=== PATIENT | female | born 1995 | race Caucasian/White ===

== ENCOUNTER 2019-06-24 18:22 | Emergency (ER) | payer MEDICARE, MEDICAID, SELFPAY ==
[2019-06-24 18:24] VITALS: RESP 18; BMI 23.3
--- NOTE | 2019-06-24 18:27 | ED_ITS ---
Entered by Yulia Hinkle, acting as scribe for HPI - Female Genitourinary General: Chief complaint: Urogenital-Female Stated complaint: NOT URINATING Time Seen by Provider: 06/24/19 18:27 Source: EMS Mode of arrival: EMS Limitations: no limitations History of Present Illness: HPI Narrative: Jennyfer is a 24-year-old female with severe cerebral palsy who comes in with report of decreased urine output. Her grandmother who is her flat spring assembler is coming to the hospital but not presently with her. EMS states the patient is in her normal mental state but the grandmother was concerned about a UTI. The patient is nonverbal and unable to give any history. All review of systems and past medical history is taken from EMS by report of the grandmother. Onset (ago): day(s) (yesterday) Severity: mild Exacerbating factors: none Relieving factors: none Associated symptoms: Reports no associated symptoms Treatment prior to arrival: none Review of Systems General: Reports: ROS unobtainable due to medical condition and other (negative unless marked) Eyes: Reports: eye discharge GI: Denies: vomiting PFSH ED PFSH: Statuses (acute, chronic, etc) shown below reflect problem list status as previously entered and may not be historically accurate Social History Smoking and tobacco status: unknown if ever smoked Physical Exam Const: COMMON NORMALS: no apparent distress, no limitations, healthy appearing and well nourished EXAM LIMITATIONS: no altered mental status GENERAL APPEARANCE: cooperative and well developed ORIENTATION/CONSCIOUSNESS: Yes awake HENMT: COMMON NORMALS: normocephalic, head/scalp atraumatic, hearing grossly normal bilaterally, external ears normal, EAC's normal, external nose normal and moist oral mucous membranes HEAD & SCALP: normal to inspection, normocephalic and atraumatic FACE & SINUS: normal facial exam and face symmetric NOSE: external nose normal and nares normal EXTERNAL EAR: Yes external ears normal EXTERNAL AUDITORY CANAL: EAC's normal MOUTH: oral and palatal mucosa normal and tongue normal Eye: COMMON NORMALS: PERRL, EOMs intact bilaterally and no scleral icterus GENERAL EYE: normal appearance of both eyes and normal light reflex CONJUNCTIVA: Yes conjunctiva abnormal (Mild greenish discharge bilaterally) SCLERA: sclerae normal CORNEA: Yes corneas normal PUPIL: Yes PERRL DIRECT OPHTHALMOSCOPY: Yes normal light reflex Neck/C-Spine: COMMON NORMALS: full ROM, no lymphadenopathy, supple, no meningeal signs and no JVD GENERAL: Yes normal visual inspection and Yes trachea midline CERVICAL SPINE: Yes cervical ROM normal Chest: COMMONS NORMALS: inspection of chest normal and palpation of chest normal Resp: COMMON NORMALS: normal respiratory effort, no retractions, no use of accessory muscles and clear to auscultation bilaterally EFFORT & INSPECTION: Yes able to speak in complete sentences AUSCULTATION: clear to auscultation bilaterally Cardio: COMMON NORMALS: no JVD, regular rate, regular rhythm, S1 normal heart sound, S2 normal heart sound, no gallops, no clicks, no murmurs and no rub JUGULAR VENOUS DISTENTION: no JVD RATE: regular rate RHYTHM: regular rhythm HEART SOUNDS: S1 normal and S2 normal GI: COMMON NORMALS: soft to palpation, non-tender, no hepatosplenomegaly and no masses INSPECTION: Yes normal to inspection PALPATION: Yes soft and Yes no hepatosplenomegaly : COMMON NORMALS: Yes no CVA tenderness BLADDER/KIDNEY EXAM: Yes no CVA tenderness Back/Pelvis: COMMON NORMALS: no CVA tenderness, thoracic and lumbar spine normal to inspection, no thoracic nor lumbar tenderness and thoraco-lumbar ROM normal Extremity: COMMON NORMALS: normal capillary refill NARRATIVE EXTREMITY EXAM: Spastic contractures present from cerebral palsy Neuro: COMMON NORMALS: moves all extremities, no focal motor deficits (Different from baseline) and no sensory deficits noted MENINGEAL SIGNS: Yes no meningeal signs and No nuccal rigidity Skin: COMMON NORMALS: no rashes or lesions noted, skin turgor normal, no jaundice, no petechiae and no mottling GENERAL SKIN EXAM: no rashes or lesions noted and turgor normal Course Vital Signs: Vital signs: Vital Signs Temperature 99.1 F 06/24/19 18:30 Pulse Rate 84 06/24/19 23:10 Respiratory Rate 17 06/24/19 21:52 Blood Pressure 100/73 06/24/19 23:10 Pulse Oximetry 98 06/24/19 23:10 MDM - Female MDM Narrative: Medical decision making narrative: Jennyfer is a 24-year-old female who was brought in at the request of her grandmother and her power of sports attorney/flat spring assembler with the concern of decreased urine output. Upon arrival here the patient had a large amount of urine found in her diaper. We did check her for UTI and check baseline labs per her grandmother's request but no acute abnormality is found. She did express concern about drainage from both eyes which sounds to be more chronic but she has requested we put her on a antibiotic for this and I will prescribe erythromycin ophthalmic ointment. At this time I see no bedsores or anything else that could be causing a sepsis type syndrome in the patient. Her grandmother is satisfied with this and will go home but does agree that if she changes her symptoms or become sick at all she will return to the ER immediately for recheck. The grandmother agrees that patient is back to her baseline and interacting at this time. She does seem somewhat interactive better than she has since arrival. Lab Data: Attestation: I reviewed the patient's lab results. Labs: Lab Results 06/24/19 06/24/19 06/24/19 Range/Units 19:03 19:03 19:03 WBC 5.8 (4.0-10.0) 10^3/ uL RBC 4.34 (4.1-5.3) 10^6/u L Hgb 13.3 (11.5-15.3) g/dL Hct 41.1 (37.0-47.0) % MCV 94.7 (81-99) fL MCH 30.6 (28.0-34.0) pg MCHC 32.4 (30.0-36.0) g/dL RDW 11.9 L (12.1-15.1) % Plt Count 232 (130-400) 10^3/c mm MPV 11.1 H (7.4-10.4) fL Neut % (Auto) 39.3 % Lymph % (Auto) 50.7 % [place] % (Auto) 8.4 % Eos % (Auto) 0.7 % Baso % (Auto) 0.7 % Neut # (Auto) 2.3 (1.8-7.7) 10^3/u L Lymph # (Auto) 2.9 (0.8-4.8) 10^3/u L [place] # (Auto) 0.5 (0.2-0.9) 10^3/u L Eos # (Auto) 0.0 (0.0-0.8) 10^3/u L Baso # (Auto) 0.0 (0.0-0.1) 10^3/u L Nucleated RBC % (a uto) 0 % Nucleated RBCs # 0.0 /100WBC Specimen Type Sample Site ABG pH (7.35-7.45) ABG pCO2 (35-45) mmHg ABG pO2 (80.0-100.0) mmH g ABG HCO3 (22-26) mmol/L ABG Base Excess (-2.0-2.0) mmol/ L Suresh Test Hematocrit (37-47) % Supervisor [employer]ating ID Sodium 139 (136-145) mmol/L Potassium 4.2 (3.5-5.1) mmol/L Chloride 99 (98-107) mmol/L Carbon Dioxide 30 H (22-29) mmol/L Anion Gap 14.2 (5-19) BUN 10 (6-20) mg/dL Creatinine 0.6 (0.5-0.9) mg/dL GFR Calculation 122.8 (90-130) mL/min Glucose 97 (74-109) mg/dL Lactic Acid 1.2 (0.5-2.2) mmol/L Calcium 10.3 H (8.6-10.0) mg/Dl Total Bilirubin 0.2 (0.15-1.2) mg/dL AST 27 (0-32) U/L ALT 13 (0-33) U/L Alkaline Phosphata se 135 H (35-105) IU/L Total Protein 8.1 (6.6-8.7) g/dL Albumin 4.3 (3.5-5.2) g/dL Globulin 3.8 (1.3-4.6) g/dL Urine Color (Yellow) Urine Appearance (CLEAR) Urine pH (5-7) Ur Specific Gravit y (1.005-1.030) Urine Protein (Negative) Urine Glucose (UA) (Normal) Urine Ketones (Negative) Urine Occult Blood (Negative) Urine Nitrate (Negative) Urine Bilirubin (NEGATIVE) Urine Urobilinogen (Negative) mg/dL Ur Leukocyte Rafaela ase (Negative) Urine RBC (0-2) /hpf Urine WBC (0-5) /hpf Ur Squamous Epith Cells (0-5) Urine Bacteria (NONE) Influenza Type A A g (Negative) POC Influenza B Ag (Negative) 06/24/19 06/24/19 06/24/19 Range/Units 19:10 19:53 20:34 WBC (4.0-10.0) 10^3/ uL RBC (4.1-5.3) 10^6/u L Hgb (11.5-15.3) g/dL Hct (37.0-47.0) % MCV (81-99) fL MCH (28.0-34.0) pg MCHC (30.0-36.0) g/dL RDW (12.1-15.1) % Plt Count (130-400) 10^3/c mm MPV (7.4-10.4) fL Neut % (Auto) % Lymph % (Auto) % [place] % (Auto) % Eos % (Auto) % Baso % (Auto) % Neut # (Auto) (1.8-7.7) 10^3/u L Lymph # (Auto) (0.8-4.8) 10^3/u L [place] # (Auto) (0.2-0.9) 10^3/u L Eos # (Auto) (0.0-0.8) 10^3/u L Baso # (Auto) (0.0-0.1) 10^3/u L Nucleated RBC % (a uto) % Nucleated RBCs # /100WBC Specimen Type Arterial Sample Site Radial, right ABG pH 7.44 (7.35-7.45) ABG pCO2 42.6 (35-45) mmHg ABG pO2 81.9 (80.0-100.0) mmH g ABG HCO3 28.8 H (22-26) mmol/L ABG Base Excess 4.1 H (-2.0-2.0) mmol/ L Suresh Test Pos Hematocrit 40.1 (37-47) % Supervisor [employer] ID ellpe Sodium (136-145) mmol/L Potassium (3.5-5.1) mmol/L Chloride (98-107) mmol/L Carbon Dioxide (22-29) mmol/L Anion Gap (5-19) BUN (6-20) mg/dL Creatinine (0.5-0.9) mg/dL GFR Calculation (90-130) mL/min Glucose (74-109) mg/dL Lactic Acid (0.5-2.2) mmol/L Calcium (8.6-10.0) mg/Dl Total Bilirubin (0.15-1.2) mg/dL AST (0-32) U/L ALT (0-33) U/L Alkaline Phosphata se (35-105) IU/L Total Protein (6.6-8.7) g/dL Albumin (3.5-5.2) g/dL Globulin (1.3-4.6) g/dL Urine Color Straw (Yellow) Urine Appearance Clear (CLEAR) Urine pH 7 (5-7) Ur Specific Gravit y 1.010 (1.005-1.030) Urine Protein Neg (Negative) Urine Glucose (UA) Norm (Normal) Urine Ketones Negative (Negative) Urine Occult Blood Neg (Negative) Urine Nitrate Negative (Negative) Urine Bilirubin Neg (NEGATIVE) Urine Urobilinogen Norm (Negative) mg/dL Ur Leukocyte Rafaela ase Negative (Negative) Urine RBC 0-4 H (0-2) /hpf Urine WBC 0-4 H (0-5) /hpf Ur Squamous Epith Cells 0-4 H (0-5) Urine Bacteria 1+ H (NONE) Influenza Type A A g Negative (Negative) POC Influenza B Ag Negative (Negative) Discharge Plan Discharge Patient Disposition: Home, Self-Care Clinical Impression: Conjunctivitis Qualifiers: Conjunctivitis type: acute Acute conjunctivitis type: bacterial Laterality: bilateral Qualified Code(s): H10.33 - Unspecified acute conjunctivitis, bilateral Condition: Stable Prescriptions: New erythromycin 5 mg/gram (0.5 %) ointment 1 applic ophthalmic (eye) Q8H Qty: 3.5 RF: 0 Discharge Orders: Discharge Order (Routine); Ordered 06/24/19 Ordered By: Shameka Mendoza Referrals: Mynor Hedrick MD [Family Provider] - 1-3 days Discharge Diet: Usual diet Discharge Activity: Resume usual activity Patient Instructions: Conjunctivitis (ED) Activity Restrictions/Additional Instructions: Please return to the ER immediately for any of the signs or symptoms listed on your discharge instruction sheets, worsening/changing of your symptoms, you are not getting better as quickly as expected, or for ANY other cause or concerns. No significant abnormalities of your granddaughters health have been found today other than her conjunctivitis. If her symptoms worsen or change in any way please return to the ER immediately for recheck and further evaluation and care. Discharge Date/Time: 06/24/19 23:11 Coding Level of Care Code ED Material Man for Chg Fwd Exam Problem Focused The documentation recorded by the Manan xie Bridget Annette, accurately reflects the service I personally performed and the decisions made by , Shameka Mendoza Jun 24, 2019 18:22
--- NOTE | 2019-06-24 18:29 | ECG_ITS ---
Measurements Intervals [place] Rate: 70 P: 33 ME: 131 QRS: 136 QRSD: 89 T: -6 QT: 387 QTc: 419 SINUS RHYTHM WITH SINUS ARRHYTHMIA LATERAL MYOCARDIAL INFARCTION , PROBABLY OLD [40+ ms Q WAVE AND/OR ST/T ABNORMALITY IN I/aVL/V5/V6] Compared to ECG 08/19/2015 06:16:51 Myocardial infarct finding now present Sinus tachycardia no longer present Left ventricular hypertrophy no longer present T-wave abnormality no longer present Electronically Signed On 06-25-2019 17:20:24 AMBULATORY CARE NURSE by Leobardo Delgadillo M.D. [email or web address]
--- NOTE | 2019-06-24 18:29 | XR_ITS ---
WS: [id number] PORTABLE CHEST HISTORY: cough COMPARISON: 12/04/2015 Vagal nerve stimulator projects over the LEFT thorax. Wires and electrodes extend superiorly. Lungs are clear and well expanded. No pleural effusion or pneumothorax. Cardiac size: Normal. Mediastinum/Aorta: Mild distortion of the mediastinum due to moderate thoracolumbar scoliosis. Moderate S-shaped scoliosis of the thoracolumbar spine with extensive Reardon carmelo placement. Harri ngton rods extends from the upper thoracic spine into the lumbar region. Distal extent of the rods no t visualized. XR/XR chest 1V portable [id number] IMPRESSION: No acute cardiopulmonary disease.
[2019-06-24 18:30] VITALS: PULSE 100; RESP 14; TEMP 37.3; O2SAT 98
--- NOTE | 2019-06-24 19:15 | PC.NURSE ---
Patient had medium, soft BM at this time. BM cleaned and felix-care performed. Per physician sood attempted to be placed at this time r/t retention, during placement attempt patient urinated a large amount of urine. THis was immeasurable due to incontinence onto chucks pads. Two chucks pads were saturated with medium dark yellow urine that appeared clear and was without foul odor. Sood did not have any urine return, some scant about of bright red blood noted on sood tip, sood removed and provider notified. Linens changed and felix care performed; pt tolerated fairly.
[2019-06-24 19:20] LABS: ABG PCO2 42.6 mmHg (35-45); ABG PH Result 7.44 (7.35-7.45); Arterial Blood Gas Hematocrit 40.1 % (37-47); Base Excess ABG 4.1 mmol/L (-2.0-2.0); Blood Gas Allen Test Pos; Blood Gas Sample Site Radial, right; Blood Gas Sample Type Arterial; HCO3 ABG 28.8 mmol/L (22-26); PO2 ABG 81.9 mmHg (80.0-100.0)
[2019-06-24 19:26] LABS: Basophils % 0.7 %; Eosinophils % 0.7 %; Hematocrit 41.1 % (37.0-47.0); Hemoglobin 13.3 g/dL (11.5-15.3); Lymphocytes # 2.9 10^3/uL (0.8-4.8); Lymphocytes % 50.7 %; Mean Corpuscular HGB Conc 32.4 g/dL (30.0-36.0); Mean Corpuscular Hemoglobin 30.6 pg (28.0-34.0); Mean Corpuscular Volume 94.7 fL (81-99); Mean Platelet Volume 11.1 fL (7.4-10.4); Monocytes # 0.5 10^3/uL (0.2-0.9); Monocytes % 8.4 %; Neutrophils # 2.3 10^3/uL (1.8-7.7); Neutrophils % 39.3 %; Nucleated Red Blood Cells % 0 %; Platelet Count 232 10^3/cmm (130-400); Red Blood Count 4.34 10^6/uL (4.1-5.3); Red Cell Distribution Width 11.9 % (12.1-15.1); White Blood Count 5.8 10^3/uL (4.0-10.0)
[2019-06-24 19:31] LABS: Lactic Sepsis W/Reflex 1.2 mmol/L (0.5-2.2)
[2019-06-24] MEDS: sodium chloride 0.9% 1,000 ML 100 ML IV (19:48)
[2019-06-24 19:56] LABS: Alanine Aminotransferase 13 U/L (0-33); Albumin Level 4.3 g/dL (3.5-5.2); Alkaline Phosphatase 135 IU/L (35-105); Anion Gap 14.2 (5-19); Aspartate Amino Transferase 27 U/L (0-32); Blood Urea Nitrogen 10 mg/dL (6-20); Calcium 10.3 mg/Dl (8.6-10.0); Carbon Dioxide 30 mmol/L (22-29); Chloride 99 mmol/L (98-107); Globulin 3.8 g/dL (1.3-4.6); Glomerular Filtration Rate 122.8 mL/min (90-130); Glucose 97 mg/dL (74-109); Potassium 4.2 mmol/L (3.5-5.1); Sodium 139 mmol/L (136-145); Total Bilirubin 0.2 mg/dL (0.15-1.2); Total Protein 8.1 g/dL (6.6-8.7)
[2019-06-24 20:32] LABS: Influenza A by IFA Negative (Negative); Influenza B by IFA Negative (Negative)
[2019-06-24 21:23] LABS: Bacteria Urine 1+; Bilirubin Urine Neg (NEGATIVE); Blood Urine Neg (Negative); Glucose Urine UA Norm (Normal); Ketones Urine Negative (Negative); Leukocyte Esterase Urine Negative (Negative); Nitrate Urine Negative (Negative); Protein Urine Neg (Negative); RBC Urine 0-4 /hpf (0-2); Squamous Epithelial Cell Urine 0-4 (0-5); Urine Appearance Clear (CLEAR); Urine Color Straw (Yellow); Urobilinogen Urine Norm (Negative); WBC Urine 0-4 /hpf (0-5); pH Urine 7 (5-7)
[2019-06-24 21:52] VITALS: PULSE 88; RESP 17; O2SAT 96
[2019-06-24 23:10] VITALS: BP 100/73; PULSE 84; O2SAT 98
== END 2019-06-24 23:11 | disposition home or self-care (01) ==
PROVIDERS: Emergency Provider Emergency Medicine; Family Provider Family Medicine
DX: H10.33 Unspecified acute conjunctivitis, bilateral (principal)
CPT/HCPCS: 36600; 71045; 80053; 81001; 82803; 83605; 85025; 87077; 87086; 87186; 87804; 93005; 96360; 99283; J7030

== ENCOUNTER 2019-12-28 19:35 | Emergency (ER) | payer MEDICARE, MEDICAID, SELFPAY ==
[2019-12-28 19:36] VITALS: BP 104/51; PULSE 72; RESP 16; TEMP 36.7; O2SAT 88; BMI 22.1
--- NOTE | 2019-12-28 19:51 | W.ED.GENADLT ---
HPI - General Adult General: Chief complaint: General Medical Stated complaint: PEG tube dislodgement Time Seen by Provider: 12/28/19 19:41 History of Present Illness: HPI narrative: Patient is a 24 year old female with history of severe CP. She is cared for at home by family. Today her PEG tube came out - family was able to replace it with an old one and it is functioning normally. They are concerned about the cleanliness of the old tube and so brought her in by ambulance. They have no other concerns. The patient is non verbal. Review of Systems General: Reports: ROS unobtainable due to medical condition PFS ED PFSH: Social History Smoking and tobacco status: unknown if ever smoked Physical Exam Const: COMMON NORMALS: alert GENERAL APPEARANCE: anxious OTHER: non-verbal HENMT: HEAD & SCALP: normal to inspection FACE & SINUS: normal facial exam Eye: GENERAL EYE: appearance normal, both eyes and all related structures Neck/C-Spine: COMMON NORMALS: supple, no meningeal signs and no JVD Chest: COMMONS NORMALS: normal inspection of the chest Resp: COMMON NORMALS: normal respiratory effort, No use of accessory muscles and clear to auscultation bilaterally AUSCULTATION: clear to auscultation bilaterally Cardio: COMMON NORMALS: no JVD, regular rate, regular rhythm and No murmurs present (Cardio) RATE: regular rate RHYTHM: regular rhythm GI: COMMON NORMALS: Normal to inspection, nondistended, normoactive bowel sounds present, Soft to palpation and non-tender INSPECTION: Yes normal to inspection, Yes GI tube present (no erythema, no drainage, functional) and Yes other AUSCULTATION: Yes normoactive bowel sounds PALPATION: Yes Soft to palpation Back/Pelvis: COMMON NORMALS: thoracic and lumbar spine normal to inspection Extremity: COMMON NORMALS: normal to inspection Neuro: SENSORIUM/ORIENTATION: Yes alert and Yes other (contractures) MENINGEAL SIGNS: Yes no meningeal signs Psych: COMMON NORMALS: mental status grossly normal, cooperative and normal affect Skin: COMMON NORMALS: no rashes or lesions noted and turgor normal GENERAL SKIN EXAM: no rashes or lesions noted and turgor normal Course ED course: The patient's grandmother had put a tube back in which appears to be functioning normally. This was good because we did not have the same type of tube here in the department or in the hospital. As it is functioning and we will let her go back home and they will follow-up with her doctor on Tuesday to get a new tube. Vital Signs: Vital signs: Vital Signs Temperature 98.1 F 12/28/19 19:36 Pulse Rate 76 12/28/19 21:08 Respiratory Rate 16 12/28/19 21:08 Blood Pressure 84/61 12/28/19 21:08 Pulse Oximetry 95 12/28/19 21:08 Discharge Plan Discharge Patient Disposition: Home Clinical Impression: Gastrostomy tube dysfunction Condition: Stable Prescriptions: No Action erythromycin 5 mg/gram (0.5 %) ointment 1 applic ophthalmic (eye) Q8H Qty: 3.5 RF: 0 Discharge Orders: Discharge Order (Routine); Ordered 12/28/19 Ordered By: Juliana Shay Referrals: Mynor Hedrick MD [Referring] - Discharge Diet: Usual diet Discharge Activity: Resume usual activity Patient Instructions: GI Tube Care Activity Restrictions/Additional Instructions: Continue to use the G-tube that you put in today as normal. Contact your physician on Tuesday to see about getting a new tube to put in. Return to the ED if fevers or abdominal pain or if the tube is not working. Discharge Date/Time: 12/28/19 21:00 Coding Level of Care Code ED [employer] Supervisor for Lobito Paula Exam Comprehensive
[2019-12-28 19:55] VITALS: BP 87/63; PULSE 79; RESP 14; O2SAT 97
[2019-12-28 21:08] VITALS: BP 84/61; PULSE 76; RESP 16; O2SAT 95
== END 2019-12-28 21:00 | disposition home or self-care (01) ==
PROVIDERS: Emergency Provider Emergency Medicine; PCP Nurse Practitioner Family
DX: K94.29 Other complications of gastrostomy (principal)
CPT/HCPCS: 12345; 99281

== ENCOUNTER 2020-01-02 09:54 | Emergency (ER) | payer MEDICARE, MEDICAID, SELFPAY ==
[2020-01-02 10:04] VITALS: BP 98/73; PULSE 78; RESP 18; TEMP 36.4; O2SAT 98
--- NOTE | 2020-01-02 10:19 | W.ED.WEAKNES ---
HPI - Weakness General: Chief complaint: Weakness Stated complaint: LETHARGIC Time Seen by Provider: 01/02/20 10:14 History of Present Illness: HPI Narrative: Patient arrived via ambulance history from grandmother is patient was more sleepy today. She is doing fine now grandmother said she looks like she doing fine she was post have an appointment at 2:00 today to get a port put in they canceled that appointment. Patient is has a history of severe CP profound. Does have a G-tube in. Onset (ago): minute(s) Duration: improved Associated symptoms: Denies chest pain, chills, easy bruising, fever(s), headache(s), nausea or vomiting Review of Systems Narrative: History is obtained from the grandmother who states that patient is feeling better now she had been increased sleepiness today but is acting appropriate now denies any problems physically with her besides what her normal pattern is. Const: Denies: fever(s), chills or body aches Eyes: Denies: change in vision or blurry vision ENMT: Denies: throat pain or nasal congestion Card: Denies: chest pain or dyspnea on exertion Resp: Denies: dyspnea, productive cough or non-productive cough GI: Denies: abdominal pain, nausea or vomiting Musc: Denies: extremity pain Skin/Breast: Denies: rash Neuro: Denies: headache(s) Psych: Denies: anxiety or depression Brendan/Lymph: Denies: easy bruising PFS ED PFSH: Social History Smoking and tobacco status: unknown if ever smoked Physical Exam Narrative: EXAM NARRATIVE: Patient is noncommunicative. But she does have a small her face skin appears normal abdomen appears normal tubes in place not leaking. Skin is not red patient does not appear to have any skin breakdown she is wearing a depends. Cardio: COMMON NORMALS: regular rate RATE: regular rate Skin: COMMON NORMALS: no rashes or lesions noted GENERAL SKIN EXAM: no rashes or lesions noted Course Vital Signs: Vital signs: Vital Signs Temperature 97.5 F L 01/02/20 10:04 Pulse Rate 78 01/02/20 10:04 Respiratory Rate 18 01/02/20 10:04 Blood Pressure 98/73 01/02/20 10:04 Pulse Oximetry 98 01/02/20 10:04 Discharge Plan Discharge Prescriptions: No Action erythromycin 5 mg/gram (0.5 %) ointment 1 applic ophthalmic (eye) Q8H Qty: 3.5 RF: 0 Coding Level of Care Code ED [employer] Profiler for Lobito Paula
[2020-01-02 10:26] VITALS: BP 98/73; PULSE 78; RESP 18; TEMP 36.4; O2SAT 98
== END 2020-01-02 10:27 | disposition home or self-care (01) ==
PROVIDERS: Emergency Provider Nurse Practitioner Family; PCP Nurse Practitioner Family
DX: R53.1 Weakness (principal)
CPT/HCPCS: 12345; 99281

== ENCOUNTER 2020-01-20 23:16 | Emergency (ER) | payer MEDICARE, MEDICAID, SELFPAY ==
[2020-01-20 23:19] VITALS: RESP 14; BMI 19.0
[2020-01-20 23:28] VITALS: BP 101/71; PULSE 94; RESP 18; O2SAT 95
[2020-01-21] VITALS: BP 107/61; PULSE 74; RESP 14; O2SAT 94
--- NOTE | 2020-01-21 00:16 | XR_ITS ---
WS: [id number] PORTABLE CHEST HISTORY: sob COMPARISON: 06/24/2019 Thorax is deformed by extensive scoliosis. Reardon rods are present along with the vagal nerve sti mulator. Generator obscures a small portion of the mid LEFT lung. No pneumonia. No pleural effusion o r pneumothorax. Cardiac size: Normal. Mediastinum/Aorta: Prominent mediastinum on the basis of rotation and scoliosis. There is a large amount of air distending the stomach and GI tract in the upper abdomen. XR/XR chest 1V portable [id number] IMPRESSION: Limited by scoliosis and Reardon rods. No abnormality identified.
[2020-01-21 00:32] LABS: Basophils # 0.1 10^3/uL (0.0-0.1); Basophils % 0.8 %; Eosinophils # 0.2 10^3/uL (0.0-0.8); Eosinophils % 1.8 %; Hematocrit 39.5 % (37.0-47.0); Hemoglobin 12.7 g/dL (11.5-15.3); Lymphocytes # 4.5 10^3/uL (0.8-4.8); Lymphocytes % 52.8 %; Mean Corpuscular HGB Conc 32.2 g/dL (30.0-36.0); Mean Corpuscular Hemoglobin 30.1 pg (28.0-34.0); Mean Corpuscular Volume 93.6 fL (81-99); Mean Platelet Volume 11.7 fL (7.4-10.4); Monocytes # 0.6 10^3/uL (0.2-0.9); Monocytes % 7.5 %; Neutrophils # 3.16 10^3/uL (1.8-7.7); Neutrophils % 36.9 %; Nucleated Red Blood Cells % 0 %; Platelet Count 257 10^3/cmm (130-400); Red Blood Count 4.22 10^6/uL (4.1-5.3); Red Cell Distribution Width 12.7 % (12.1-15.1); White Blood Count 8.6 10^3/uL (4.0-10.0)
[2020-01-21 00:42] LABS: Alanine Aminotransferase 17 U/L (0-33); Albumin Level 4.6 g/dL (3.5-5.2); Alkaline Phosphatase 130 IU/L (35-105); Aspartate Amino Transferase 33 U/L (0-32); Blood Urea Nitrogen 11 mg/dL (6-20); Calcium 9.2 mg/dL (8.5-10.5); Carbon Dioxide 27 mmol/L (22-29); Chloride 99 mmol/L (98-107); Creatine Phosphokinase 63 U/L (26-192); Globulin 2.8 g/dL (1.3-4.6); Glomerular Filtration Rate 151.6 mL/min (90-130); Glucose 106 mg/dL (65-115); Osmolality Calculated 282 mOsm/kg (285-295); Sodium 138 mmol/L (136-145); Total Bilirubin 0.2 mg/dL (0.15-1.2); Total Protein 7.4 g/dL (6.6-8.7)
[2020-01-21 01:00] VITALS: BP 110/75; PULSE 79; RESP 16; O2SAT 99
[2020-01-21 01:19] LABS: Add Urine Microscopic? NO
[2020-01-21 01:22] LABS: Urine Appearance Clear (CLEAR); Urine Color Yellow (Yellow); pH Urine 7 (5-7)
[2020-01-21 01:23] LABS: Bilirubin Urine Neg (NEGATIVE); Blood Urine Neg (Negative); Glucose Urine UA Norm (Normal); Ketones Urine Negative (Negative); Leukocyte Esterase Urine Negative (Negative); Nitrate Urine Negative (Negative); Protein Urine Neg (Negative); Specific Gravity, Urine 1.005 (1.005-1.030); Urobilinogen Urine Norm (Negative)
--- NOTE | 2020-01-21 01:25 | W.ED.AMS ---
HPI - Altered Mental Status General: Chief Complaint: Altered Mental Status Stated Complaint: ams Time Seen by Provider: 01/20/20 23:38 History of Present Illness: HPI narrative: 24-year-old female with a history of profound CP and developmental delay. She presents with a period of what appeared to her grandmother to be shortness of breath. She noted that she was gasping for air. Jennyfer is mostly nonverbal, and cannot communicate by words. She appeared to be in somewhat distress, followed by a period of lethargy for her. Grandmother notes she appears to be back to near her baseline. MD complaint: altered mental status and decreased responsiveness Onset (ago): minute(s) Timing confirmed by: family member Severity: moderate Associated symptoms: Reports other Review of Systems General: Reports: ROS unobtainable due to medical condition Const: Denies: fever(s) ENMT: Denies: nasal congestion or epistaxis Card: Denies: edema or syncope Resp: Reports: dyspnea; Denies: productive cough, non-productive cough or wheezing GI: Denies: vomiting or diarrhea PFS ED PFSH: Social History Smoking and tobacco status: unknown if ever smoked Physical Exam Const: COMMON NORMALS: no acute distress EXAM LIMITATIONS: behavioral limitations and physical limitations GENERAL APPEARANCE: well kempt NUTRITIONAL APPEARANCE: thin ORIENTATION/CONSCIOUSNESS: Yes awake Eye: COMMON NORMALS: Equal, round and reactive pupils present CONJUNCTIVA: Yes conjunctival abnormal positive left conjunctival injection PUPIL: Yes Equal, round and reactive pupils present Chest: CHEST: Yes Symmetrical chest wall rise Resp: COMMON NORMALS: normal respiratory effort, No retractions, No use of accessory muscles and clear to auscultation bilaterally AUSCULTATION: clear to auscultation bilaterally Cardio: COMMON NORMALS: regular rate and regular rhythm RATE: regular rate RHYTHM: regular rhythm HEART SOUNDS: no murmurs GI: INSPECTION: Yes abdominal distension (mild) and Yes GI tube present AUSCULTATION: Yes normoactive bowel sounds PALPATION: No Guarding due to palpation present (GI) and No Rigid due to palpation Psych: APPEARANCE: Yes well kempt Course Vital Signs: Vital signs: Vital Signs Pulse Rate 79 01/21/20 01:00 Respiratory Rate 16 01/21/20 01:00 Blood Pressure 110/75 01/21/20 01:00 Pulse Oximetry 99 01/21/20 01:00 MDM - Altered Mental Status MDM Narrative: Medical decision making narrative: Jennyfer presents after a period of gasping for air, and then some decreased mental status. She appears to be back to baseline. She has some conjunctival injection on the left that continues. There is no matting. She is calm and not agitated. Her blood pressures have been mildly soft, which I believe is normal for her. Currently 90/67, with a pulse of 76, saturations 100% on room air. Her laboratory is benign. Her urinalysis is negative. Her chest x-ray does not appear to show an infiltrate. There is some chronic colonic distention present. Since she is appearing to be back at her baseline, she will be allowed home. Lab Data: Labs: Lab Results 01/20/20 01/20/20 01/21/20 Range/Units 23:58 23:58 00:54 WBC 8.6 (4.0-10.0) 10^3/ uL RBC 4.22 (4.1-5.3) 10^6/u L Hgb 12.7 (11.5-15.3) g/dL Hct 39.5 (37.0-47.0) % MCV 93.6 (81-99) fL MCH 30.1 (28.0-34.0) pg MCHC 32.2 (30.0-36.0) g/dL RDW 12.7 (12.1-15.1) % Plt Count 257 (130-400) 10^3/c mm MPV 11.7 H (7.4-10.4) fL Neut % (Auto) 36.9 % Lymph % (Auto) 52.8 % [place] % (Auto) 7.5 % Eos % (Auto) 1.8 % Baso % (Auto) 0.8 % Neut # (Auto) 3.16 (1.8-7.7) 10^3/u L Lymph # (Auto) 4.5 (0.8-4.8) 10^3/u L [place] # (Auto) 0.6 (0.2-0.9) 10^3/u L Eos # (Auto) 0.2 (0.0-0.8) 10^3/u L Baso # (Auto) 0.1 (0.0-0.1) 10^3/u L Nucleated RBC % (a uto) 0 % Nucleated RBCs # 0.0 /100WBC Sodium 138 (136-145) mmol/L Potassium 4.0 (3.5-5.1) mmol/L Chloride 99 (98-107) mmol/L Carbon Dioxide 27 (22-29) mmol/L Anion Gap 16.0 (5-19) BUN 11 (6-20) mg/dL Creatinine 0.5 (0.5-0.9) mg/dL GFR Calculation 151.6 H (90-130) mL/min Glucose 106 (65-115) mg/dL Calculated Osmolal ity 282 L (285-295) mOsm/k g Calcium 9.2 (8.5-10.5) mg/dL Total Bilirubin 0.2 (0.15-1.2) mg/dL AST 33 H (0-32) U/L ALT 17 (0-33) U/L Alkaline Phosphata se 130 H (35-105) IU/L Creatine Kinase 63 (26-192) U/L Total Protein 7.4 (6.6-8.7) g/dL Albumin 4.6 (3.5-5.2) g/dL Globulin 2.8 (1.3-4.6) g/dL Urine Color Yellow (Yellow) Urine Appearance Clear (CLEAR) Urine pH 7 (5-7) Ur Specific Gravit y 1.005 (1.005-1.030) Urine Protein Neg (Negative) Urine Glucose (UA) Norm (Normal) Urine Ketones Negative (Negative) Urine Blood Neg (Negative) Urine Nitrate Negative (Negative) Urine Bilirubin Neg (NEGATIVE) Urine Urobilinogen Norm (Negative) mg/dL Ur Leukocyte Rafaela ase Negative (Negative) Discharge Plan Discharge Patient Disposition: Home Clinical Impression: Acute dyspnea, Alteration consciousness Condition: Stable Prescriptions: No Action erythromycin 5 mg/gram (0.5 %) ointment 1 applic ophthalmic (eye) Q8H Qty: 3.5 RF: 0 Discharge Orders: Discharge Order (Routine); Ordered 01/21/20 Ordered By: Daniel Rhoades Referrals: Cindy Leger APRN [Primary Care Provider] - 4-7 days Discharge Diet: Usual diet Discharge Activity: Resume usual activity Patient Instructions: Dyspnea (ED) Activity Restrictions/Additional Instructions: Return for fever greater than 100, return of problems breathing, cough, lethargy, any other concerning symptoms. Coding Level of Care Code ED Monomer Recovery Supervisor for [place] Fwd Exam Detailed
[2020-01-21 02:00] VITALS: BP 90/62; PULSE 68; RESP 15; O2SAT 93
[2020-01-21 02:54] VITALS: BP 89/52; PULSE 71; RESP 16; O2SAT 98
== END 2020-01-21 03:13 | disposition home or self-care (01) ==
PROVIDERS: Emergency Provider Emergency Medicine; PCP Nurse Practitioner Family
DX: R41.82 Altered mental status, unspecified (principal); R06.00 Dyspnea, unspecified
CPT/HCPCS: 12345; 71045; 80053; 81003; 82550; 85025; 99282; 99283

== ENCOUNTER 2020-04-01 14:24 | Inpatient (IN) | payer MEDICARE, MEDICAID, SELFPAY ==
[2020-04-01] VITALS (19 sets, daily range): BP systolic 82–119; BP diastolic 59–92; PULSE 85–134; RESP 16–31; TEMP 36.6–38.1; O2SAT 92–100; BMI 18.7
--- NOTE | 2020-04-01 14:27 | W.ED.AMS ---
Documented by User: Robert Fisher DO 04/02/20 06:40 HPI - Altered Mental Status General: Chief Complaint: Altered Mental Status Stated Complaint: AMS Time Seen by Provider: 04/01/20 14:27 History of Present Illness: HPI narrative: 24-year-old female with cerebral palsy. She has had an increased cough for the last 10 to 14 days. She has not had any vomiting or diarrhea according to the mother who is the main caregiver. She does have a PEG tube. Mother denies fever at home she is very tachycardic in the ER. But otherwise nonresponsive. Onset (ago): week(s) Severity: moderate Consistency of symptoms: Getting Worse Review of Systems General: Reports: ROS unobtainable due to medical condition PFSH ED PFSH: Medical History Cerebral palsy Surgical History S/P percutaneous endoscopic gastrostomy (PEG) tube placement Status post VNS (vagus nerve stimulator) placement ? Social History Smoking and tobacco status: unknown if ever smoked Physical Exam Const: COMMON NORMALS: no acute distress HENMT: COMMON NORMALS: normocephalic and atraumatic HEAD & SCALP: normocephalic and atraumatic Neck/C-Spine: COMMON NORMALS: no JVD Resp: COMMON NORMALS: normal respiratory effort, No retractions, No use of accessory muscles and clear to auscultation bilaterally AUSCULTATION: clear to auscultation bilaterally Cardio: COMMON NORMALS: no JVD, regular rate, regular rhythm and No murmurs present (Cardio) RATE: regular rate RHYTHM: regular rhythm GI: COMMON NORMALS: Soft to palpation and No hepatosplenomegaly present AUSCULTATION: Yes normoactive bowel sounds PALPATION: Yes Soft to palpation, No Tenderness to palpation present (GI), No Guarding due to palpation present (GI) and Yes No hepatosplenomegaly present Extremity: COMMON NORMALS: normal to inspection, capillary refill normal, no clubbing, cyanosis or edema, no calf tenderness and no pedal edema Skin: COMMON NORMALS: no rashes or lesions noted GENERAL SKIN EXAM: no rashes or lesions noted Course Vital Signs: Vital signs: Vital Signs Temperature 99.9 F H 04/02/20 05:34 Pulse Rate 114 H 04/02/20 04:00 Respiratory Rate 20 H 04/02/20 04:00 Blood Pressure 80/61 04/02/20 04:00 Pulse Oximetry 96 04/02/20 04:00 MDM - Altered Mental Status MDM Narrative: Medical decision making narrative: continued workup on source of AMS/possible sepsis. pending CT head and chest. May need LP. Repeat eam chest clear, bowel sounds present mild distention. Reviewed with Dr. Mendoza and case trnasferrred at change of shift. Lab Data: Labs: Lab Results 04/01/20 04/01/20 04/01/20 Range/Units 15:30 15:45 15:45 WBC 12.5 H (4.0-10.0) 10^3/ uL RBC 5.21 (4.1-5.3) 10^6/u L Hgb 15.8 H (11.5-15.3) g/dL Hct 49.8 H (37.0-47.0) % MCV 95.6 (81-99) fL MCH 30.3 (28.0-34.0) pg MCHC 31.7 (30.0-36.0) g/dL RDW 13.0 (12.1-15.1) % Plt Count 324 (130-400) 10^3/c mm MPV 10.1 (7.4-10.4) fL Neut % (Auto) 71.4 % Lymph % (Auto) 22.6 % Mccormick % (Auto) 5.1 % Eos % (Auto) 0.5 % Baso % (Auto) 0.2 % Neut # (Auto) 8.90 H (1.8-7.7) 10^3/u L Lymph # (Auto) 2.8 (0.8-4.8) 10^3/u L Mccormick # (Auto) 0.6 (0.2-0.9) 10^3/u L Eos # (Auto) 0.1 (0.0-0.8) 10^3/u L Baso # (Auto) 0.0 (0.0-0.1) 10^3/u L Nucleated RBC % (a uto) 0 % Nucleated RBCs # 0.0 /100WBC PT (12.1-14.9) SECO NDS INR (0.8-1.2) D-Dimer (0-0.59) ug/mIFE U Sodium (136-145) mmol/L Potassium (3.5-5.1) mmol/L Chloride (98-107) mmol/L Carbon Dioxide (22-29) mmol/L Anion Gap (5-19) BUN (6-20) mg/dL Creatinine (0.5-0.9) mg/dL GFR Calculation (90-130) mL/min Glucose (65-115) mg/dL Calculated Osmolal ity (285-295) mOsm/k g Lactic Acid 4.0 H (0.5-2.2) mmol/L Calcium (8.5-10.5) mg/dL Total Bilirubin (0.15-1.2) mg/dL AST (0-32) U/L ALT (0-33) U/L Alkaline Phosphata se (35-105) IU/L Creatine Kinase (26-192) U/L Total Protein (6.6-8.7) g/dL Albumin (3.5-5.2) g/dL Globulin (1.3-4.6) g/dL Urine Color Dark yellow (Yellow) Urine Appearance Hazy A (CLEAR) Urine pH 5 (5-7) Ur Specific Gravit y 1.020 (1.005-1.030) Urine Protein Trace (Negative) Urine Glucose (UA) Norm (Normal) Urine Ketones Negative (Negative) Urine Blood Neg (Negative) Urine Nitrate Negative (Negative) Urine Bilirubin 1+ H (Negative) Urine Urobilinogen 1 H (Negative) mg/dL Ur Leukocyte Rafaela ase Negative (Negative) Urine RBC None (0-2) /hpf Urine WBC None (0-5) /hpf Ur Squamous Epith Cells 0-4 H (0-5) /hpf Amorphous Sediment Not Reportable Urine Bacteria Trace (NONE) /hpf Hyaline Casts 80-100 H /lpf Urine Mucus 2+ /hpf Serum Ketones (Negative) SARS-CoV-2 Ag (Rap id) (Negative) 04/01/20 04/01/20 04/01/20 Range/Units 15:45 15:45 15:45 WBC (4.0-10.0) 10^3/ uL RBC (4.1-5.3) 10^6/u L Hgb (11.5-15.3) g/dL Hct (37.0-47.0) % MCV (81-99) fL MCH (28.0-34.0) pg MCHC (30.0-36.0) g/dL RDW (12.1-15.1) % Plt Count (130-400) 10^3/c mm MPV (7.4-10.4) fL Neut % (Auto) % Lymph % (Auto) % Mccormick % (Auto) % Eos % (Auto) % Baso % (Auto) % Neut # (Auto) (1.8-7.7) 10^3/u L Lymph # (Auto) (0.8-4.8) 10^3/u L Mccormick # (Auto) (0.2-0.9) 10^3/u L Eos # (Auto) (0.0-0.8) 10^3/u L Baso # (Auto) (0.0-0.1) 10^3/u L Nucleated RBC % (a uto) % Nucleated RBCs # /100WBC PT 13.60 (12.1-14.9) SECO NDS INR 1.01 (0.8-1.2) D-Dimer 1.39 H (0-0.59) ug/mIFE U Sodium 132 L (136-145) mmol/L Potassium 3.7 (3.5-5.1) mmol/L Chloride 89 L (98-107) mmol/L Carbon Dioxide 26 (22-29) mmol/L Anion Gap 20.7 H (5-19) BUN 20 (6-20) mg/dL Creatinine 0.9 (0.5-0.9) mg/dL GFR Calculation 76.9 L (90-130) mL/min Glucose 80 (65-115) mg/dL Calculated Osmolal ity 276 L (285-295) mOsm/k g Lactic Acid (0.5-2.2) mmol/L Calcium 9.8 (8.5-10.5) mg/dL Total Bilirubin 0.3 (0.15-1.2) mg/dL AST 36 H (0-32) U/L ALT 19 (0-33) U/L Alkaline Phosphata se 194 H (35-105) IU/L Creatine Kinase 63 (26-192) U/L Total Protein 9.3 H (6.6-8.7) g/dL Albumin 5.3 H (3.5-5.2) g/dL Globulin 4.0 (1.3-4.6) g/dL Urine Color (Yellow) Urine Appearance (CLEAR) Urine pH (5-7) Ur Specific Gravit y (1.005-1.030) Urine Protein (Negative) Urine Glucose (UA) (Normal) Urine Ketones (Negative) Urine Blood (Negative) Urine Nitrate (Negative) Urine Bilirubin (Negative) Urine Urobilinogen (Negative) mg/dL Ur Leukocyte Rafaela ase (Negative) Urine RBC (0-2) /hpf Urine WBC (0-5) /hpf Ur Squamous Epith Cells (0-5) /hpf Amorphous Sediment Urine Bacteria (NONE) /hpf Hyaline Casts /lpf Urine Mucus /hpf Serum Ketones Negative (Negative) SARS-CoV-2 Ag (Rap id) (Negative) 04/01/20 Range/Units 15:50 WBC (4.0-10.0) 10^3/ uL RBC (4.1-5.3) 10^6/u L Hgb (11.5-15.3) g/dL Hct (37.0-47.0) % MCV (81-99) fL MCH (28.0-34.0) pg MCHC (30.0-36.0) g/dL RDW (12.1-15.1) % Plt Count (130-400) 10^3/c mm MPV (7.4-10.4) fL Neut % (Auto) % Lymph % (Auto) % Mccormick % (Auto) % Eos % (Auto) % Baso % (Auto) % Neut # (Auto) (1.8-7.7) 10^3/u L Lymph # (Auto) (0.8-4.8) 10^3/u L Mccormick # (Auto) (0.2-0.9) 10^3/u L Eos # (Auto) (0.0-0.8) 10^3/u L Baso # (Auto) (0.0-0.1) 10^3/u L Nucleated RBC % (a uto) % Nucleated RBCs # /100WBC PT (12.1-14.9) SECO NDS INR (0.8-1.2) D-Dimer (0-0.59) ug/mIFE U Sodium (136-145) mmol/L Potassium (3.5-5.1) mmol/L Chloride (98-107) mmol/L Carbon Dioxide (22-29) mmol/L Anion Gap (5-19) BUN (6-20) mg/dL Creatinine (0.5-0.9) mg/dL GFR Calculation (90-130) mL/min Glucose (65-115) mg/dL Calculated Osmolal ity (285-295) mOsm/k g Lactic Acid (0.5-2.2) mmol/L Calcium (8.5-10.5) mg/dL Total Bilirubin (0.15-1.2) mg/dL AST (0-32) U/L ALT (0-33) U/L Alkaline Phosphata se (35-105) IU/L Creatine Kinase (26-192) U/L Total Protein (6.6-8.7) g/dL Albumin (3.5-5.2) g/dL Globulin (1.3-4.6) g/dL Urine Color (Yellow) Urine Appearance (CLEAR) Urine pH (5-7) Ur Specific Gravit y (1.005-1.030) Urine Protein (Negative) Urine Glucose (UA) (Normal) Urine Ketones (Negative) Urine Blood (Negative) Urine Nitrate (Negative) Urine Bilirubin (Negative) Urine Urobilinogen (Negative) mg/dL Ur Leukocyte Rafaela ase (Negative) Urine RBC (0-2) /hpf Urine WBC (0-5) /hpf Ur Squamous Epith Cells (0-5) /hpf Amorphous Sediment Urine Bacteria (NONE) /hpf Hyaline Casts /lpf Urine Mucus /hpf Serum Ketones (Negative) SARS-CoV-2 Ag (Rap id) Negative (Negative) Discharge Plan Discharge Admit Provider: Yolanda Yanez Discharge Date/Time: 04/01/20 22:12 Coding Level of Care Code ED [employer] for Chg Fwd Exam Comprehensive Documented by User: Shameka Figueroa Kelly 04/01/20 20:25 HPI - Altered Mental Status General: Chief Complaint: Altered Mental Status Stated Complaint: AMS Time Seen by Provider: 04/01/20 14:27 PFSH ED PFSH: Medical History Cerebral palsy Surgical History S/P percutaneous endoscopic gastrostomy (PEG) tube placement Status post VNS (vagus nerve stimulator) placement ? Social History Smoking and tobacco status: unknown if ever smoked Course Vital Signs: Vital signs: Vital Signs Temperature 99.9 F H 04/02/20 05:34 Pulse Rate 114 H 04/02/20 04:00 Respiratory Rate 20 H 04/02/20 04:00 Blood Pressure 80/61 04/02/20 04:00 Pulse Oximetry 96 04/02/20 04:00 MDM - Altered Mental Status MDM Narrative: Medical decision making narrative: 1800 -Case assumed by me at change of shift from Dr. Fisher. Patient is reported to have an altered mental status today. Was also found to be tachycardic. Patient has history of seizures and cerebral palsy. There is been no evidence of seizure according to the mother. Patient's been tachycardic but afebrile. Dr. Fisher signed the case over to me with a CT of the head and CTA of the chest pending. Patient appears to be at her baseline here with her mentation now but according to the mother she was not this earlier in the day. 1851 -Jennyfer's CT of the head and chest have not been read but she does appear to have what looks like a possible bowel obstruction on her CT of the chest. On my exam the patient's abdomen appears to be tender. It is unclear whether she is had any vomiting or diarrhea at home. Formal reads of the CT scans of the head and chest are not read but I will send her back for CT of the abdomen and pelvis without contrast. Lab Data: Labs: Lab Results 04/01/20 04/01/20 04/01/20 Range/Units 15:30 15:45 15:45 WBC 12.5 H (4.0-10.0) 10^3/ uL RBC 5.21 (4.1-5.3) 10^6/u L Hgb 15.8 H (11.5-15.3) g/dL Hct 49.8 H (37.0-47.0) % MCV 95.6 (81-99) fL MCH 30.3 (28.0-34.0) pg MCHC 31.7 (30.0-36.0) g/dL RDW 13.0 (12.1-15.1) % Plt Count 324 (130-400) 10^3/c mm MPV 10.1 (7.4-10.4) fL Neut % (Auto) 71.4 % Lymph % (Auto) 22.6 % Mccormick % (Auto) 5.1 % Eos % (Auto) 0.5 % Baso % (Auto) 0.2 % Neut # (Auto) 8.90 H (1.8-7.7) 10^3/u L Lymph # (Auto) 2.8 (0.8-4.8) 10^3/u L Mccormick # (Auto) 0.6 (0.2-0.9) 10^3/u L Eos # (Auto) 0.1 (0.0-0.8) 10^3/u L Baso # (Auto) 0.0 (0.0-0.1) 10^3/u L Nucleated RBC % (a uto) 0 % Nucleated RBCs # 0.0 /100WBC PT (12.1-14.9) SECO NDS INR (0.8-1.2) D-Dimer (0-0.59) ug/mIFE U Sodium (136-145) mmol/L Potassium (3.5-5.1) mmol/L Chloride (98-107) mmol/L Carbon Dioxide (22-29) mmol/L Anion Gap (5-19) BUN (6-20) mg/dL Creatinine (0.5-0.9) mg/dL GFR Calculation (90-130) mL/min Glucose (65-115) mg/dL Calculated Osmolal ity (285-295) mOsm/k g Lactic Acid 4.0 H (0.5-2.2) mmol/L Calcium (8.5-10.5) mg/dL Total Bilirubin (0.15-1.2) mg/dL AST (0-32) U/L ALT (0-33) U/L Alkaline Phosphata se (35-105) IU/L Creatine Kinase (26-192) U/L Total Protein (6.6-8.7) g/dL Albumin (3.5-5.2) g/dL Globulin (1.3-4.6) g/dL Urine Color Dark yellow (Yellow) Urine Appearance Hazy A (CLEAR) Urine pH 5 (5-7) Ur Specific Gravit y 1.020 (1.005-1.030) Urine Protein Trace (Negative) Urine Glucose (UA) Norm (Normal) Urine Ketones Negative (Negative) Urine Blood Neg (Negative) Urine Nitrate Negative (Negative) Urine Bilirubin 1+ H (Negative) Urine Urobilinogen 1 H (Negative) mg/dL Ur Leukocyte Rafaela ase Negative (Negative) Urine RBC None (0-2) /hpf Urine WBC None (0-5) /hpf Ur Squamous Epith Cells 0-4 H (0-5) /hpf Amorphous Sediment Not Reportable Urine Bacteria Trace (NONE) /hpf Hyaline Casts 80-100 H /lpf Urine Mucus 2+ /hpf Serum Ketones (Negative) SARS-CoV-2 Ag (Rap id) (Negative) 04/01/20 04/01/20 04/01/20 Range/Units 15:45 15:45 15:45 WBC (4.0-10.0) 10^3/ uL RBC (4.1-5.3) 10^6/u L Hgb (11.5-15.3) g/dL Hct (37.0-47.0) % MCV (81-99) fL MCH (28.0-34.0) pg MCHC (30.0-36.0) g/dL RDW (12.1-15.1) % Plt Count (130-400) 10^3/c mm MPV (7.4-10.4) fL Neut % (Auto) % Lymph % (Auto) % Mccormick % (Auto) % Eos % (Auto) % Baso % (Auto) % Neut # (Auto) (1.8-7.7) 10^3/u L Lymph # (Auto) (0.8-4.8) 10^3/u L Mccormick # (Auto) (0.2-0.9) 10^3/u L Eos # (Auto) (0.0-0.8) 10^3/u L Baso # (Auto) (0.0-0.1) 10^3/u L Nucleated RBC % (a uto) % Nucleated RBCs # /100WBC PT 13.60 (12.1-14.9) SECO NDS INR 1.01 (0.8-1.2) D-Dimer 1.39 H (0-0.59) ug/mIFE U Sodium 132 L (136-145) mmol/L Potassium 3.7 (3.5-5.1) mmol/L Chloride 89 L (98-107) mmol/L Carbon Dioxide 26 (22-29) mmol/L Anion Gap 20.7 H (5-19) BUN 20 (6-20) mg/dL Creatinine 0.9 (0.5-0.9) mg/dL GFR Calculation 76.9 L (90-130) mL/min Glucose 80 (65-115) mg/dL Calculated Osmolal ity 276 L (285-295) mOsm/k g Lactic Acid (0.5-2.2) mmol/L Calcium 9.8 (8.5-10.5) mg/dL Total Bilirubin 0.3 (0.15-1.2) mg/dL AST 36 H (0-32) U/L ALT 19 (0-33) U/L Alkaline Phosphata se 194 H (35-105) IU/L Creatine Kinase 63 (26-192) U/L Total Protein 9.3 H (6.6-8.7) g/dL Albumin 5.3 H (3.5-5.2) g/dL Globulin 4.0 (1.3-4.6) g/dL Urine Color (Yellow) Urine Appearance (CLEAR) Urine pH (5-7) Ur Specific Gravit y (1.005-1.030) Urine Protein (Negative) Urine Glucose (UA) (Normal) Urine Ketones (Negative) Urine Blood (Negative) Urine Nitrate (Negative) Urine Bilirubin (Negative) Urine Urobilinogen (Negative) mg/dL Ur Leukocyte Rafaela ase (Negative) Urine RBC (0-2) /hpf Urine WBC (0-5) /hpf Ur Squamous Epith Cells (0-5) /hpf Amorphous Sediment Urine Bacteria (NONE) /hpf Hyaline Casts /lpf Urine Mucus /hpf Serum Ketones Negative (Negative) SARS-CoV-2 Ag (Rap id) (Negative) 04/01/20 Range/Units 15:50 WBC (4.0-10.0) 10^3/ uL RBC (4.1-5.3) 10^6/u L Hgb (11.5-15.3) g/dL Hct (37.0-47.0) % MCV (81-99) fL MCH (28.0-34.0) pg MCHC (30.0-36.0) g/dL RDW (12.1-15.1) % Plt Count (130-400) 10^3/c mm MPV (7.4-10.4) fL Neut % (Auto) % Lymph % (Auto) % Mccormick % (Auto) % Eos % (Auto) % Baso % (Auto) % Neut # (Auto) (1.8-7.7) 10^3/u L Lymph # (Auto) (0.8-4.8) 10^3/u L Mccormick # (Auto) (0.2-0.9) 10^3/u L Eos # (Auto) (0.0-0.8) 10^3/u L Baso # (Auto) (0.0-0.1) 10^3/u L Nucleated RBC % (a uto) % Nucleated RBCs # /100WBC PT (12.1-14.9) SECO NDS INR (0.8-1.2) D-Dimer (0-0.59) ug/mIFE U Sodium (136-145) mmol/L Potassium (3.5-5.1) mmol/L Chloride (98-107) mmol/L Carbon Dioxide (22-29) mmol/L Anion Gap (5-19) BUN (6-20) mg/dL Creatinine (0.5-0.9) mg/dL GFR Calculation (90-130) mL/min Glucose (65-115) mg/dL Calculated Osmolal ity (285-295) mOsm/k g Lactic Acid (0.5-2.2) mmol/L Calcium (8.5-10.5) mg/dL Total Bilirubin (0.15-1.2) mg/dL AST (0-32) U/L ALT (0-33) U/L Alkaline Phosphata se (35-105) IU/L Creatine Kinase (26-192) U/L Total Protein (6.6-8.7) g/dL Albumin (3.5-5.2) g/dL Globulin (1.3-4.6) g/dL Urine Color (Yellow) Urine Appearance (CLEAR) Urine pH (5-7) Ur Specific Gravit y (1.005-1.030) Urine Protein (Negative) Urine Glucose (UA) (Normal) Urine Ketones (Negative) Urine Blood (Negative) Urine Nitrate (Negative) Urine Bilirubin (Negative) Urine Urobilinogen (Negative) mg/dL Ur Leukocyte Rafaela ase (Negative) Urine RBC (0-2) /hpf Urine WBC (0-5) /hpf Ur Squamous Epith Cells (0-5) /hpf Amorphous Sediment Urine Bacteria (NONE) /hpf Hyaline Casts /lpf Urine Mucus /hpf Serum Ketones (Negative) SARS-CoV-2 Ag (Rap id) Negative (Negative) Imaging Data^: CXR: Attestation: I personally reviewed and interpreted this imaging study as follows: My impression: No acute cardiopulmonary findings. Abnormal bowel gas pattern underneath the diaphragm. CT Head: Radiologist's impression: [address] [address] [address] Scan Report Signed Patient: Jennyfer Bliss Unit #: [id number] : 1995 Age/Sex: 24 / F ADM Date: 04/01/20 Loc: ER Room/Bed: Attending Dr: Ordering Provider/Ordering MD: Robert Fisher DO Date of Service: 04/01/20 Procedure(s): CT head wo con* [id number] Accession Number(s): [id number] Report Number: [id number] PROCEDURE INFORMATION: Exam: CT Head Without Contrast Exam date and time: 04/01/2020 6:04 PM Age: 24 years old Clinical indication: Altered mental status/memory loss; Patient HX: AMS TECHNIQUE: Imaging protocol: Computed tomography of the head without contrast. Radiation optimization: All CT scans at this facility use at least one of these dose optimization techniques: automated exposure control; mA and/or kV adjustment per patient size (includes targeted exams where dose is matched to clinical indication); or iterative reconstruction. COMPARISON: CT head wo con* [id number] 04/15/2019 2:21 PM RADIATION DOSE METRICS: Total DLP (mGy-cm): 632.62 FINDINGS: Brain: No evidence of active or acute intracranial pathologic process, hemorrhage, or trauma. No visible cerebral edema, mass effect, or midline shift. Chronic asymmetrical left temporoparietal atrophy. Stable esquivel-white differentiation. Cerebral ventricles: No ventriculomegaly. Bones/joints: Unremarkable. No acute fracture. Paranasal sinuses: Visualized sinuses are unremarkable. No fluid levels. Mastoid air cells: Visualized mastoid air cells are well aerated. Soft tissues: Unremarkable. CT/CT head wo con* [id number] IMPRESSION: No evidence of active or acute intracranial pathologic process, hemorrhage, or trauma. Radiation Dose CTDIVOL = (mGy): DLP = 632.62 (mGy-cm) Dictated By: Michael Mensah Signed By: Michael Mensah Signed Date/Time: 04/01/201919 DD/ 18 CT Chest: Radiologist's impression: [address] [address] [address] Scan Report Signed Patient: Jennyfer Bliss Unit #: [id number] : 1995 Age/Sex: 24 / F ADM Date: 04/01/20 Loc: ER Room/Bed: Attending Dr: Ordering Provider/Ordering MD: Robert Fisher DO Date of Service: 04/01/20 Procedure(s): CT angio chest PE protcl [id number] Accession Number(s): [id number] Report Number: [id number] PROCEDURE INFORMATION: Exam: CT Angiography Chest With Contrast Exam date and time: 04/01/2020 6:04 PM Age: 24 years old Clinical indication: Prior surgery; Surgery type: Spine; Patient HX: Elevated d dimer, AMS TECHNIQUE: Imaging protocol: Computed tomographic angiography of the chest with intravenous contrast. 3D rendering (Not supervised by radiologist): MIP and/or 3D reconstructed images were created by the technologist. Radiation optimization: All CT scans at this facility use at least one of these dose optimization techniques: automated exposure control; mA and/or kV adjustment per patient size (includes targeted exams where dose is matched to clinical indication); or iterative reconstruction. Contrast material: OMNI 350; Contrast volume: 60 ml; Contrast route: INTRAVENOUS (IV); COMPARISON: CR XR chest 1V portable [id number] 04/01/2020 2:46 PM RADIATION DOSE METRICS: Total DLP (mGy-cm): 563.55 FINDINGS: Tubes, catheters and devices: There is a neurostimulator device in place with electrodes on the left side of the neck. Pulmonary arteries: There is no evidence of filling defects within the pulmonary arterial circulation to suggest pulmonary embolism. Aorta: Unremarkable. No aortic aneurysm. No aortic dissection. Veins: There is air within branching structures within the periphery of the liver. This is not fully evaluated on this examination is uncertain whether this is air within the biliary tree related to prior instrumentation, or portal venous gas. Further evaluation is suggested as this finding could represent portal venous gas. Lungs: There is some minimal tree-in-bud type nodular opacity in the periphery of the right upper lobe which could represent some small area of infectious bronchiolitis. There is some mosaic attenuation in both lungs which likely represents some mild gas trapping on this examination which appears to been done in expiration. Pleural space: Unremarkable. No pneumothorax. No pleural effusion. Heart: Unremarkable. No cardiomegaly. No pericardial effusion. Lymph nodes: Unremarkable. No enlarged lymph nodes. Gallbladder and bile ducts: A calcified gallstone is present. Stomach and bowel: There is some fluid-filled dilated loops of small bowel in the upper abdomen not fully evaluated on this examination but worrisome for some intestinal pathology. There is also dilatation of the visualized portions of the stomach with fluid and air. There is questionably some minimal pneumatosis of the stomach but this is not a definite finding. Bones/joints: There is scoliosis of the thoracic and lumbar spine with postsurgical changes with pedicle screws at multiple levels and bilateral Reardon rods. Soft tissues: Unremarkable. CT/CT angio chest PE protcl [id number] IMPRESSION: 1. No evidence of pulmonary embolism. 2. Question of some minimal infectious bronchiolitis in the right upper lobe. 3. Cholelithiasis. 4. Findings worrisome for bowel obstruction not completely evaluated on this examination. 5. Findings of portal venous gas within the liver. Further evaluation with abdominal CT scan and correlation with clinical findings is suggested. Radiation Dose CTDIVOL = (mGy): DLP = 563.55 (mGy-cm) Dictated By: Bruno Brock Signed By: Bruno Brock Signed Date/Time: 04/01/201930 DD/ 29 CT Abd/Pel: Radiologist's impression: [address] [address] [address] Scan Report Signed Patient: Jennyfer Bliss Unit #: [id number] : 1995 Age/Sex: 24 / F ADM Date: 04/01/20 Loc: ER Room/Bed: Attending Dr: Ordering Provider/Ordering MD: Shameka Mendoza DO Date of Service: 04/01/20 Procedure(s): CT abdomen pelvis con [id number] Accession Number(s): [id number] Report Number: [id number] PROCEDURE INFORMATION: Exam: CT Abdomen And Pelvis Without Contrast Exam date and time: 04/01/2020 7:15 PM Age: 24 years old Clinical indication: Abdominal pain; Prior surgery TECHNIQUE: Imaging protocol: Computed tomography of the abdomen and pelvis without contrast. Radiation optimization: All CT scans at this facility use at least one of these dose optimization techniques: automated exposure control; mA and/or kV adjustment per patient size (includes targeted exams where dose is matched to clinical indication); or iterative reconstruction. COMPARISON: CT abdomen pelvis w con* [id number] 09/07/2015 8:58 PM RADIATION DOSE METRICS: Total DLP (mGy-cm): 650.08 FINDINGS: Tubes, catheters and devices: Left chest wall electronic stimulating device. Lungs: Limited assessment of the lung bases fails to reveal evidence for active cardiopulmonary process. Liver: Hepatic portal venous gas. Gallbladder and bile ducts: Solitary small gallstone. Enlarged gallbladder. No visible gallbladder wall thickening or pericholecystic fluid. Pancreas: Normal. No ductal dilation. Spleen: Normal. No splenomegaly. Adrenal glands: Adrenal glands not well imaged due to metal artifact. Kidneys and ureters: Normal. No hydronephrosis. Stomach and bowel: Concern for submucosal gas along the dependent portion of the gastric fundus and greater curvature with concern for bowel ischemia/infarction. Fecal impaction with constipation/obstipation of the sigmoid colon. Markedly ectatic loops of small bowel with lung synchronous air-fluid levels and without clear transition zone. Findings most likely secondary to marked adynamic ileus/reactive ileus. Appendix: No evidence of appendicitis. Intraperitoneal space: No generalized pneumoperitoneum. Vasculature: Unremarkable. No abdominal aortic aneurysm. Lymph nodes: Unremarkable. No enlarged lymph nodes. Urinary bladder: Unremarkable as visualized. Reproductive: Markedly atrophic uterus. Bones/joints: Extensive metal artifact from inter pedicle screws and side bar fixation of the thoracolumbar spine for scoliosis stabilization. Soft tissues: Unremarkable. Other findings: Marked rotoscoliosis. CT/CT abdomen pelvis wo con [id number] IMPRESSION: 1. Hepatic portal venous gas. This is a grave finding. 2. Concern for gastric infarction. Please review details in text. 3. Markedly ectatic loops of small and proximal large bowel with suspicion for marked reactive or adynamic ileus. 4. Fecal impaction with heavy fecal residue throughout the sigmoid colon. 5. Other nonemergent/nonurgent findings as detailed in text above. 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
--- NOTE | 2020-04-01 14:41 | ECG_ITS ---
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 [facility].[employer]/store/[id number]
--- NOTE | 2020-04-01 14:42 | XR_ITS ---
WS: [id number] Exam: XR chest 1V portable [id number] Date/Time of Exam: 04/01/2020 2:42 PM Reason For Exam: dyspnea/cough Findings: Comparison 01/21/2020. The lungs are fully expanded and clear. Normal heart size. The mediastinum is not widened. Levoscolio sis of the thoracic spine with Reardon rods in place. No sign of hardware failure. A neurostimulat or pack superimposes the left chest with the leads extending to the base of the neck on the left. The bony thorax is osteopenic. XR/XR chest 1V portable [id number] IMPRESSION: 1. No acute cardiopulmonary finding.
[2020-04-01] MEDS: sodium chloride 0.9% 1,000 ML 999 ML IV ×2 (16:00→17:28)
[2020-04-01 16:06] LABS: Basophils % 0.2 %; Eosinophils # 0.1 10^3/uL (0.0-0.8); Eosinophils % 0.5 %; Hematocrit 49.8 % (37.0-47.0); Hemoglobin 15.8 g/dL (11.5-15.3); Lymphocytes # 2.8 10^3/uL (0.8-4.8); Lymphocytes % 22.6 %; Mean Corpuscular HGB Conc 31.7 g/dL (30.0-36.0); Mean Corpuscular Hemoglobin 30.3 pg (28.0-34.0); Mean Corpuscular Volume 95.6 fL (81-99); Mean Platelet Volume 10.1 fL (7.4-10.4); Monocytes # 0.6 10^3/uL (0.2-0.9); Monocytes % 5.1 %; Neutrophils % 71.4 %; Nucleated Red Blood Cells % 0 %; Platelet Count 324 10^3/cmm (130-400); Red Blood Count 5.21 10^6/uL (4.1-5.3); White Blood Count 12.5 10^3/uL (4.0-10.0)
[2020-04-01 16:21] LABS: Ketone (Acetest) Serum Negative (Negative)
[2020-04-01 16:26] LABS: Bilirubin Urine 1+ (Negative); Blood Urine Neg (Negative); Glucose Urine UA Norm (Normal); Ketones Urine Negative (Negative); Nitrate Urine Negative (Negative); Protein Urine Trace (Negative); Urine Appearance Hazy (CLEAR); Urine Color Dark Yellow (Yellow); pH Urine 5 (5-7)
[2020-04-01 16:28] LABS: Add Urine Microscopic? YES; Leukocyte Esterase Urine Negative (Negative); Urobilinogen Urine 1 mg/dL (Negative)
[2020-04-01 16:30] LABS: Hyaline Casts Urine 80-100 /lpf
[2020-04-01 16:31] LABS: Add Urine Culture? No; Bacteria Urine TRACE /hpf; Mucus Urine 2+ /hpf; Squamous Epithelial Cell Urine 0-4 /hpf (0-5)
[2020-04-01 16:39] LABS: Alanine Aminotransferase 19 U/L (0-33); Albumin Level 5.3 g/dL (3.5-5.2); Alkaline Phosphatase 194 IU/L (35-105); Anion Gap 20.7 (5-19); Aspartate Amino Transferase 36 U/L (0-32); Blood Urea Nitrogen 20 mg/dL (6-20); Calcium 9.8 mg/dL (8.5-10.5); Carbon Dioxide 26 mmol/L (22-29); Chloride 89 mmol/L (98-107); Creatine Phosphokinase 63 U/L (26-192); Creatinine Clr Calc Pharmacy 86.1636; Glomerular Filtration Rate 76.9 mL/min (90-130); Glucose 80 mg/dL (65-115); Osmolality Calculated 276 mOsm/kg (285-295); Potassium 3.7 mmol/L (3.5-5.1); Sodium 132 mmol/L (136-145); Total Bilirubin 0.3 mg/dL (0.15-1.2); Total Protein 9.3 g/dL (6.6-8.7)
[2020-04-01 17:09] LABS: SARS Covid-2 Antigen Negative (Negative)
[2020-04-01] MEDS: levofloxacin-dextrose 5 % 750 MG/150 ML PREMIX 100 MG IV (17:26)
--- NOTE | 2020-04-01 17:27 | CTR_ITS ---
PROCEDURE INFORMATION: Exam: CT Head Without Contrast Exam date and time: 04/01/2020 6:04 PM Age: 24 years old Clinical indication: Altered mental status/memory loss; Patient HX: AMS TECHNIQUE: Imaging protocol: Computed tomography of the head without contrast. Radiation optimization: All CT scans at this facility use at least one of these dose optimization techniques: automated exposure control; mA and/or kV adjustment per patient size (includes targeted exams where dose is matched to clinical indication); or iterative reconstruction. COMPARISON: CT head wo con* [id number] 04/15/2019 2:21 PM RADIATION DOSE METRICS: Total DLP (mGy-cm): 632.62 FINDINGS: Brain: No evidence of active or acute intracranial pathologic process, hemorrhage, or trauma. No visible cerebral edema, mass effect, or midline shift. Chronic asymmetrical left temporoparietal atrophy. Stable esquivel-white differentiation. Cerebral ventricles: No ventriculomegaly. Bones/joints: Unremarkable. No acute fracture. Paranasal sinuses: Visualized sinuses are unremarkable. No fluid levels. Mastoid air cells: Visualized mastoid air cells are well aerated. Soft tissues: Unremarkable. CT/CT head wo con* [id number] IMPRESSION: No evidence of active or acute intracranial pathologic process, hemorrhage, or trauma. Radiation Dose CTDIVOL = (mGy): DLP = 632.62 (mGy-cm)
[2020-04-01 17:50] LABS: D Dimer 1.39 ug/mIFEU (0-0.59); Reflex Lactate Order REFLEX LACTIC ORDERD
--- NOTE | 2020-04-01 17:56 | CTR_ITS ---
PROCEDURE INFORMATION: Exam: CT Angiography Chest With Contrast Exam date and time: 04/01/2020 6:04 PM Age: 24 years old Clinical indication: Prior surgery; Surgery type: Spine; Patient HX: Elevated d dimer, AMS TECHNIQUE: Imaging protocol: Computed tomographic angiography of the chest with intravenous contrast. 3D rendering (Not supervised by radiologist): MIP and/or 3D reconstructed images were created by the technologist. Radiation optimization: All CT scans at this facility use at least one of these dose optimization techniques: automated exposure control; mA and/or kV adjustment per patient size (includes targeted exams where dose is matched to clinical indication); or iterative reconstruction. Contrast material: OMNI 350; Contrast volume: 60 ml; Contrast route: INTRAVENOUS (IV); COMPARISON: CR XR chest 1V portable [id number] 04/01/2020 2:46 PM RADIATION DOSE METRICS: Total DLP (mGy-cm): 563.55 FINDINGS: Tubes, catheters and devices: There is a neurostimulator device in place with electrodes on the left side of the neck. Pulmonary arteries: There is no evidence of filling defects within the pulmonary arterial circulation to suggest pulmonary embolism. Aorta: Unremarkable. No aortic aneurysm. No aortic dissection. Veins: There is air within branching structures within the periphery of the liver. This is not fully evaluated on this examination is uncertain whether this is air within the biliary tree related to prior instrumentation, or portal venous gas. Further evaluation is suggested as this finding could represent portal venous gas. Lungs: There is some minimal tree-in-bud type nodular opacity in the periphery of the right upper lobe which could represent some small area of infectious bronchiolitis. There is some mosaic attenuation in both lungs which likely represents some mild gas trapping on this examination which appears to been done in expiration. Pleural space: Unremarkable. No pneumothorax. No pleural effusion. Heart: Unremarkable. No cardiomegaly. No pericardial effusion. Lymph nodes: Unremarkable. No enlarged lymph nodes. Gallbladder and bile ducts: A calcified gallstone is present. Stomach and bowel: There is some fluid-filled dilated loops of small bowel in the upper abdomen not fully evaluated on this examination but worrisome for some intestinal pathology. There is also dilatation of the visualized portions of the stomach with fluid and air. There is questionably some minimal pneumatosis of the stomach but this is not a definite finding. Bones/joints: There is scoliosis of the thoracic and lumbar spine with postsurgical changes with pedicle screws at multiple levels and bilateral Reardon rods. Soft tissues: Unremarkable. CT/CT angio chest PE protcl [id number] IMPRESSION: 1. No evidence of pulmonary embolism. 2. Question of some minimal infectious bronchiolitis in the right upper lobe. 3. Cholelithiasis. 4. Findings worrisome for bowel obstruction not completely evaluated on this examination. 5. Findings of portal venous gas within the liver. Further evaluation with abdominal CT scan and correlation with clinical findings is suggested. Radiation Dose CTDIVOL = (mGy): DLP = 563.55 (mGy-cm)
[2020-04-01] MEDS: iohexol 350 mg/mL 100 mL Btl IV (18:39)
--- NOTE | 2020-04-01 18:42 | CTR_ITS ---
PROCEDURE INFORMATION: Exam: CT Abdomen And Pelvis Without Contrast Exam date and time: 04/01/2020 7:15 PM Age: 24 years old Clinical indication: Abdominal pain; Prior surgery TECHNIQUE: Imaging protocol: Computed tomography of the abdomen and pelvis without contrast. Radiation optimization: All CT scans at this facility use at least one of these dose optimization techniques: automated exposure control; mA and/or kV adjustment per patient size (includes targeted exams where dose is matched to clinical indication); or iterative reconstruction. COMPARISON: CT abdomen pelvis w con* [id number] 09/07/2015 8:58 PM RADIATION DOSE METRICS: Total DLP (mGy-cm): 650.08 FINDINGS: Tubes, catheters and devices: Left chest wall electronic stimulating device. Lungs: Limited assessment of the lung bases fails to reveal evidence for active cardiopulmonary process. Liver: Hepatic portal venous gas. Gallbladder and bile ducts: Solitary small gallstone. Enlarged gallbladder. No visible gallbladder wall thickening or pericholecystic fluid. Pancreas: Normal. No ductal dilation. Spleen: Normal. No splenomegaly. Adrenal glands: Adrenal glands not well imaged due to metal artifact. Kidneys and ureters: Normal. No hydronephrosis. Stomach and bowel: Concern for submucosal gas along the dependent portion of the gastric fundus and greater curvature with concern for bowel ischemia/infarction. Fecal impaction with constipation/obstipation of the sigmoid colon. Markedly ectatic loops of small bowel with lung synchronous air-fluid levels and without clear transition zone. Findings most likely secondary to marked adynamic ileus/reactive ileus. Appendix: No evidence of appendicitis. Intraperitoneal space: No generalized pneumoperitoneum. Vasculature: Unremarkable. No abdominal aortic aneurysm. Lymph nodes: Unremarkable. No enlarged lymph nodes. Urinary bladder: Unremarkable as visualized. Reproductive: Markedly atrophic uterus. Bones/joints: Extensive metal artifact from inter pedicle screws and side bar fixation of the thoracolumbar spine for scoliosis stabilization. Soft tissues: Unremarkable. Other findings: Marked rotoscoliosis. CT/CT abdomen pelvis wo con [id number] IMPRESSION: 1. Hepatic portal venous gas. This is a grave finding. 2. Concern for gastric infarction. Please review details in text. 3. Markedly ectatic loops of small and proximal large bowel with suspicion for marked reactive or adynamic ileus. 4. Fecal impaction with heavy fecal residue throughout the sigmoid colon. 5. Other nonemergent/nonurgent findings as detailed in text above. Radiation Dose CTDIVOL = (mGy): DLP = 650.08 (mGy-cm)
[2020-04-01] MEDS: vancomycin 1,000 MG in sodium chloride 0.9% 250 ML 250 MG IV (18:48)
[2020-04-01] MEDS: ondansetron 2 mg/ML SDV 2 mL 4 MG IVP (18:48)
--- NOTE | 2020-04-01 18:52 | ECG_ITS ---
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1995 Requested By: Shameka Figueroa Order Number: [id number] Reading MD: Measurements Intervals [place] Rate: 110 P: 47 MS: 147 QRS: 79 QRSD: 91 T: -38 QT: 303 QTc: 411 Interpretive Statements SINUS TACHYCARDIA ST DEVIATION AND MODERATE T-WAVE ABNORMALITY, CONSIDER ANTEROLATERAL ISCHEMIA [-0.1+ mV T WAVE IN V3-V6] ST DEVIATION AND MODERATE T-WAVE ABNORMALITY, CONSIDER INFERIOR ISCHEMIA [-0.1+ mV T WAVE IN II/aVF] WARNING: DATA QUALITY MAY AFFECT INTERPRETATION Compared to ECG 04/01/2020 20:54:29 No significant changes [email or web address]/store/[id number]
[2020-04-01 19:02] LABS: INR 1.01 (0.8-1.2)
--- NOTE | 2020-04-01 19:14 | PC.NURSE ---
Caregiver (grandmother) had to be reminded to leave patients IV fluids, antibiotics, and pump alone. Pump found resist or turned off 2x. nuclear technologist also informed staff that caregiver stepped between her and patients bed after informing caregiver of procedure after caregiver verbalized understanding. Caregiver also pulled patient PEG tube port from patients abdomen and used paper towels to clean inner site, nurse informed caregiver that staff could clean site properly or supply proper materials. There was green purulent drainage at site and on dressing around PEG tube. Caregiver also had medications and supplements pulled out to give patient, nurse informed her for the second time not to give patient anything, as ED physician would put orders in for needed medications.
[2020-04-01] MEDS: piperacillin-tazobactam 3.375 GM in sodium chloride 0.9% (plus) 50 ML IV (20:24)
--- NOTE | 2020-04-01 20:52 | ECG_ITS ---
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1995 Requested By: Shameka Figueroa Order Number: [id number] Reading MD: Measurements Intervals [place] Rate: 119 P: 28 LA: 146 QRS: 68 QRSD: 81 T: -21 QT: 276 QTc: 389 Interpretive Statements SINUS TACHYCARDIA ST DEVIATION AND MODERATE T-WAVE ABNORMALITY, CONSIDER ANTEROLATERAL ISCHEMIA [-0.1+ mV T WAVE IN V3-V6] ST DEVIATION AND MODERATE T-WAVE ABNORMALITY, CONSIDER INFERIOR ISCHEMIA [-0.1+ mV T WAVE IN II/aVF] Compared to ECG 04/01/2020 16:20:15 No significant changes [id number]
--- NOTE | 2020-04-01 21:08 | XR_ITS ---
WS: [id number] Exam: XR chest 1V portable [id number] Date/Time of Exam: 04/01/2020 9:10 PM Reason For Exam: NG tube placement Findings: Comparison 04/01/2020. The lungs remain clear and fully expanded. Cardiomediastinal structures are unremarkable. An enteric tube has been placed and appears to be looped in the stomach. A thoracic scoliosis with Tomas ro ds as previously described. Vagal nerve stimulator superimposes the left chest. XR/XR chest 1V portable [id number] IMPRESSION: 1. NG tube looped in the stomach. 2. No acute cardiopulmonary finding and no other significant change since previ ous exam.
--- NOTE | 2020-04-01 21:24 | PM.CONSULT ---
Providers/Reason For Consult Consulting Physican/Specialty*: General Surgery Glenn Ambrose MD Reason for Consult*: Abnormal abdominal CAT scan. Attending Physician: Yolanda Yanez MD Primary Care Provider: Cindy Leger APRN History of Present Illness History of Present Illness Jennyfer Bliss is a 24 year old female with cerebral palsy who apparently came into the emergency room with her grandmother this evening who is her flame cutting machine operator helper. The patient cannot give me any history. Her grandmother is very difficult to talk to and has a hard time staying on track during our conversation. She also cannot explain the patient's medical history well. It sounds like the patient started having trouble with what sounds to be gastric distention and retention over the past week. For whatever reason, the grandmother says she will take the patient's gastric button out and clean it, and over the past week gastric contents have rolled out of the opening whenever she does that. The patient was brought to the hospital tonight for reasons that I do not fully understand, but she was found to be tachycardic. A CAT scan showed some changes in the abdomen including distended bowel, stomach, and some possible portal venous air. She also has a significant fecal impaction. The radiologist felt there was possible consideration for gastric infarction. The patient has received a nasogastric tube in the emergency department and some broad-spectrum antibiotics. Review of Systems General: Reports: ROS unobtainable due to medical condition Meds/Allergies Home Medications and Allergies Home Medications Medication Instructions Recorded Confirmed Last Taken Type azithromycin 200 mg/5 mL oral See Rx Instructions PO .COMPLEX 03/28/20 04/01/20 03/31/20 Rx suspension #37.5 ml ofloxacin 0.3 % ear drops 5 drop EAR-BOTH BID 7 Days #5 ml 03/28/20 04/01/20 Unknown Rx clonazepam 1 mg PO TID 04/01/20 04/01/20 Unknown History lamotrigine 400 mg PO BID 04/01/20 04/01/20 Unknown History levetiracetam See Rx Instructions .ROUTE .COMPLEX 04/01/20 04/01/20 04/01/20 07:00 History levothyroxine 125 mcg PO DAILY 04/01/20 04/01/20 Unknown History phenobarbital See Rx Instructions .ROUTE .COMPLEX 04/01/20 04/01/20 04/01/20 07:00 History rufinamide [Banzel] 1,400 mg PO BID 04/01/20 04/01/20 Unknown History triamcinolone acetonide See Rx Instructions .ROUTE .COMPLEX 04/01/20 04/01/20 Unknown History Allergies Allergy/AdvReac Type Severity Reaction Status Date / Time No Known Allergies Allergy Verified 04/01/20 14:34 PFSH Acute PFSH: Medical History (Updated 04/01/20 @ 21:32 by Glenn Ambrose MD) Cerebral palsy Surgical History (Updated 04/01/20 @ 21:27 by Glenn Ambrose MD) S/P percutaneous endoscopic gastrostomy (PEG) tube placement Status post VNS (vagus nerve stimulator) placement ? Social History Smoking and tobacco status: unknown if ever smoked Vitals/I&O/Wt Last Vital Signs Temp 97.9 F 04/01/20 14:25 Pulse 127 H 04/01/20 21:18 Resp 18 04/01/20 21:18 BP 97/68 04/01/20 21:18 Pulse Ox 96 04/01/20 21:18 Weight last 48 hrs Weight 116 lb Physical Exam Narrative: EXAM NARRATIVE: The patient was encountered in the emergency department. She has a nasogastric tube in place which is draining some light brown-colored fluid. The sclera are somewhat red but the pupils are equal. No carotid bruits are heard. The patient has a tubular foreign body entering her neck with some type of the control unit on the anterior and left side of the chest in the subcutaneous location. The chest seems clear anteriorly. The heart is regular. The abdomen is somewhat distended but is soft. There is a gastric button in place with a healed left subcostal scar. The abdomen does reveal bowel sounds but they are hypoactive. It is difficult to say that the patient has any tenderness to palpation on my exam. The lower extremities appear to be somewhat contracted but there is no significant edema. Data Micro: Micro: Microbiology 04/01/20 15:45 Blood Culture - Pr eliminary Blood SPECIMEN [facility]LLY 04/01/20 15:46 Blood Culture - Pr eliminary Blood SPECIMEN [facility] Imaging^: CT Abd/Pel: Radiologist's impression: CT abdomen/pelvis 04/01/2020 IMPRESSION: 1. Hepatic portal venous gas. This is a grave finding. 2. Concern for gastric infarction. Please review details in text. 3. Markedly ectatic loops of small and proximal large bowel with suspicion for marked reactive or adynamic ileus. 4. Fecal impaction with heavy fecal residue throughout the sigmoid colon. CT Chest: Radiologist's impression: CTA chest 04/01/2020 IMPRESSION: 1. No evidence of pulmonary embolism. 2. Question of some minimal infectious bronchiolitis in the right upper lobe. 3. Cholelithiasis. 4. Findings worrisome for bowel obstruction not completely evaluated on this examination. 5. Findings of portal venous gas within the liver. Further evaluation with abdominal CT scan and correlation with clinical findings is suggested. A&P Assessment and plan (1) Pylephlebitis: I do see some possible evidence of portal venous air in the periphery of the liver, but I am not sure that I agree with the radiologist that the stomach has gas within the wall. It would be nearly impossible to completely devascularize the stomach from an infarction since it has so many sources of blood flow. One of the causes of portal venous air is gastric or intestinal distention, which the patient clearly has. There is not an obvious source of infection in the abdomen on the CAT scan and the patient's exam frankly is not terribly impressive right now. Status: Acute (2) Fecal impaction: The patient clearly has a significant fecal impaction in the distal sigmoid and rectum, and this may be her primary problem. I have to wonder, given the limited history provided by the patient's grandmother, if she has continued to distend the patient's stomach by putting tube feedings in over the past week when the patient may have not been having regular bowel movements. This would explain the gastric distention, the oozing of gastric contents from the gastrostomy site and may even explain the presence of portal venous gas. I will be happy to continue following the patient while she is hospitalized. Status: Acute Consult Attestations Medical Necessity Statement: See admitting service's notation. Coding Level of Care Code Acute [place] Chief for [facility] Nisa Diagnoses Pylephlebitis K75.1 Fecal impaction K56.41
[2020-04-01 21:55] LABS: Lactic Acid level (Lactate) 3.7 mmol/L (0.5-2.2)
[2020-04-01 21:57] LABS: Troponin(5th) Baseline 8 ng/L (0-10)
--- NOTE | 2020-04-01 22:11 | PC.NURSE ---
Admit Note Arrived to unit at this time via ER anibal. Pt awake, non-verbal with contracture to arms and legs. Levaquin and IVF hanging on arrival to unit. Breathing is even and non-labored, lungs clear throughout. Skin hot to touch. Both eyes and sclera reddened. Pt has NG tube in place. Upon transfer pt incontinent of large amounts of mucoid yellow/bender loose stool. Button Peg noted to medial abdomen. Tem 100.5 ax on arrival to unit. Sinus tachycardia present with rate in 120's.
[2020-04-01 22:28] LABS: Creatine Phosphokinase 80 U/L (26-192)
--- NOTE | 2020-04-01 23:26 | PC.NURSE ---
Admission Assessment Charlee Bliss - Co-guardian of patient and sister to patient called at this time. Admission assessment was completed at this time over the phone with Charlee. Charlee reports she and her grandmother Fallon are both guardians and patient lives alone with Fallon Bliss, however Charlee also takes care of patient. Does report getting home health services (independent living). Reports patient had a vagus nerve stimulator battery changed to left chest within the past couple of weeks. Reports patient has seizures and left device to place over left chest to stop the seizure. Was unable to tell me date of last seizure. Also reports her normal feeding schedule. Takes Nutrin 1 can four times daily with 250ml water after each feed. Addressed designator visitor status with Charlee, she designated Fallon Bliss grandmother to be the visitor.
--- NOTE | 2020-04-01 23:35 | PC.NURSE ---
Flu Vaccine After speaking with Guardian Charlee cleaning, patient has not had flu vaccine this year and would like her vaccinated prior to discharge.
--- NOTE | 2020-04-01 23:37 | PM.HP ---
Providers/Chief Complaint Admitting Physician: Yolanda Yanez MD Primary Care Provider: Cindy Leger APRN Chief Complaint: AMS History of Present Illness Jennyfer Bliss is a 24 year old female with a past medical history of cerebral palsy, seizure disorder, status post PEG tube placement, hypothyroidism was brought to the ER today by her grandmother due to fever and lethargy. T-max here is noted to be 100.5 Fahrenheit. Lactate is elevated at 4. It is extremely hard to get a clear history from the grandmother. She is only able to state that patient has had some increased weakness, noted leaking around her PEG site and an increased incidence of upward gaze over the past 2 weeks. On March 28, per primary care provider's note, it appears patient was seen for chief complaints of chest congestion, increased thick white sputum and left ear bleeding. She was diagnosed with left sided otitis media at the time and started on treatment with azithromycin and ciprofloxacin eardrops. Unable to a certain any further sequence of events as grandmother is a poor historian. Patient herself is nonverbal. Labs in the ER noted for leukocytosis of 12.5, predominant neutrophilia, D-dimer 1.39, mild hyponatremia sodium 132, anion gap of 20.7, lactic acid of 4, negative troponin delta's, elevated phenobarbital level of 35.5, negative Covid antigen. Imaging of the chest negative for any consolidation or PE. Abdomen pelvis CT showed hepatic portal venous gas and concern for gastric infarction due to noted submucosal gas along dependent portion of the gastric fundus and greater curvature. Also noted to have severe fecal impaction with constipation/obstipation of the sigmoid colon. Markedly ectatic loops of small bowel with air-fluid levels without a clear transition zone thought to be related to marked adynamic ileus/reactive ileus. Patient has been evaluated by Dr. Ambrose from general surgery, currently has an NGT in place to suction. Review of Systems General: Reports: ROS unobtainable due to medical condition and ROS unobtainable due to mental status Medications/Allergies Home Medications Medication Instructions Recorded Confirmed Last Taken Type azithromycin 200 mg/5 mL oral See Rx Instructions PO .COMPLEX 03/28/20 04/01/20 03/31/20 Rx suspension #37.5 ml ofloxacin 0.3 % ear drops 5 drop EAR-BOTH BID 7 Days #5 ml 03/28/20 04/01/20 Unknown Rx clonazepam 1 mg PO TID 04/01/20 04/01/20 Unknown History lamotrigine 400 mg PO BID 04/01/20 04/01/20 Unknown History levetiracetam See Rx Instructions .ROUTE .COMPLEX 04/01/20 04/01/20 04/01/20 07:00 History levothyroxine 125 mcg PO DAILY 04/01/20 04/01/20 Unknown History phenobarbital See Rx Instructions .ROUTE .COMPLEX 04/01/20 04/01/20 04/01/20 07:00 History rufinamide [Banzel] 1,400 mg PO BID 04/01/20 04/01/20 Unknown History triamcinolone acetonide See Rx Instructions .ROUTE .COMPLEX 04/01/20 04/01/20 Unknown History Allergies Allergy/AdvReac Type Severity Reaction Status Date / Time No Known Allergies Allergy Verified 04/01/20 14:34 PFSH Acute PFSH: Medical History Cerebral palsy Surgical History S/P percutaneous endoscopic gastrostomy (PEG) tube placement Status post VNS (vagus nerve stimulator) placement ? Social History Smoking and tobacco status: unknown if ever smoked Vitals/I&O/Wt Last Vital Signs Temp 100.5 F H 04/01/20 22:15 Pulse 120 H 04/01/20 23:30 Resp 21 H 04/01/20 23:30 BP 108/69 04/01/20 23:30 Pulse Ox 93 04/01/20 23:30 Weight last 48 hrs Weight 52.617 kg Physical Exam Narrative: EXAM NARRATIVE: GENERAL: Awake, nonverbal at baseline, does not follow any commands. [] HEENT: Normocephalic, atraumatic, PERRL conjunctival congestion present bilaterally. [] CHEST: Clear to auscultation bilaterally anteriorly. [] CVS: S1, S2 normal. No murmur, rubs, gallops. [] ABDOMEN: Soft, distended, unable to assess for tenderness. Bowel sounds not heard. Leaking both biliary appearing fluid around PEG site which is noted in the epigastric region.] NEUROVASCULAR: Bilateral contractures in lower extremity, does not move any extremity, does not follow commands. EXTREMITIES: No edema. [] Urinary Catheter Management^: Sequeira: Cath Placed During This Visit: yes Urinary Catheter Date of Insertion: 04/01/20 Urinary Catheter Time of Insertion: 22:27 Data : 04/01/20 15:45 04/01/20 15:45 Micro: Microbiology 04/01/20 15:45 Blood Culture - Preliminary Blood SPECIMEN COLLECTED 04/01/20 15:46 Blood Culture - Preliminary Blood SPECIMEN COLLECTED A&P Assessment and plan (1) Sepsis: Status: Acute Qualifiers: Sepsis type: sepsis due to unspecified organism Sepsis acute organ dysfunction status: unspecified Qualified Code(s): A41.9 - Sepsis, unspecified organism (2) Pylephlebitis: Status: Acute (3) Adynamic ileus: Status: Acute (4) Cerebral palsy: Status: Acute Qualifiers: Cerebral palsy type: unspecified type Qualified Code(s): G80.9 - Cerebral palsy, unspecified (5) Seizure disorder: Status: Acute Additional A&P Information Admit as inpatient # Sepsis : Meets criteria by way of fever, leukocytosis, tachycardia, tachypnea, elevated lactate of 4 Appears to be related to intra-abdominal source as evidenced by pylephlebitis, adynamic ileus and what appears to be gastric infarction per radiology read. Surgical recommendations appreciated, IV fluid resuscitation with normal saline at 150 cc/h, patient does appear to be dehydrated clinically. Continue NGT to suction CTA of the chest did not show any evidence of consolidation, however note made of bronchiolitis which may be related to aspiration. Covid antigen is negative. Per review of primary care physician's note, patient was also recently diagnosed to have left-sided otitis media. Unable to assess for clinical signs of meningitis given patient's cerebral palsy and nonverbal state. At this present time there does appear to be an alternate source of sepsis intra-abdominally, therefore lower suspicion for meningitis. Would continue empiric antibiotic coverage with piperacillin tazobactam for now. Check blood cx UA not c/w UTI #Pylephlebitis: Likely as a result of intra-abdominal infection. Or findings of gastric infarction. Patient grandmother does note some history of manipulation of the PEG tube in the past week, wonder epigastric findings may be related to this. There currently is no mention of displaced PEG tube on the CAT scan. #Seizure disorder. Elevated levels of phenobarbital as noted. Hold phenobarbital for now. Patient's grandmother states she has noted an increase in upward eye rolling movement over the past 2 weeks. Check EEG in the morning to evaluate for ongoing seizure. Check Keppra levels as well. Continue home doses of clonazepam, lamotrigine, Keppra switch to IV and Banzel. 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
[2020-04-01 23:42] LABS: Troponin 5 2HR 7.53 ng/L (0-10)
[2020-04-01 23:46] LABS: Troponin 5 2HR Delta -0.47 ABS# (0-10)
[2020-04-02] VITALS (15 sets, daily range): BP systolic 80–115; BP diastolic 53–79; PULSE 93–119; RESP 15–25; TEMP 37.6–38.6; O2SAT 92–99
[2020-04-02] MEDS: pantoprazole 40 mg SDV IVP ×2 (00:26→23:43)
[2020-04-02] MEDS: enoxaparin 40 mg/0.4 mL Syringe SUBCUT ×2 (00:26→23:43)
--- NOTE | 2020-04-02 02:16 | PC.NURSE ---
Physician Notification Notified Dr. Yanez at this time, after multiple IV sticks unable to obtain lab specimens. Dr. Yanez okayed placing an external jugular IV at this time for access and lab draws. Waiting for blood cultures to be negative before placing picc line if needed. ELVIA Huggins placed #20 gauge IV into left external jugularX 1 attempt . Labs obtained at this time. Pt tolerated well.
[2020-04-02] MEDS: sodium chloride 0.9% 1,000 ML 150 ML IV ×4 (02:40→23:44)
[2020-04-02] MEDS: piperacillin-tazobactam 3.375 GM in sodium chloride 0.9% (plus) 50 ML IV ×3 (02:40→17:45)
[2020-04-02 02:46] LABS: Basophils % 0.4 %; Eosinophils # 0.1 10^3/uL (0.0-0.8); Eosinophils % 0.7 %; Hematocrit 36.5 % (37.0-47.0); Lymphocytes # 2.8 10^3/uL (0.8-4.8); Lymphocytes % 24.6 %; Mean Corpuscular HGB Conc 32.9 g/dL (30.0-36.0); Mean Corpuscular Hemoglobin 30.9 pg (28.0-34.0); Mean Corpuscular Volume 94.1 fL (81-99); Mean Platelet Volume 10.3 fL (7.4-10.4); Monocytes # 1.2 10^3/uL (0.2-0.9); Monocytes % 10.2 %; Neutrophils # 7.31 10^3/uL (1.8-7.7); Neutrophils % 63.9 %; Nucleated Red Blood Cells % 0 %; Platelet Count 246 10^3/cmm (130-400); Red Blood Count 3.88 10^6/uL (4.1-5.3); Red Cell Distribution Width 13.1 % (12.1-15.1); White Blood Count 11.4 10^3/uL (4.0-10.0)
[2020-04-02 02:56] LABS: Partial Thromboplastin Time 69.8 SECONDS (23.9-36.7)
[2020-04-02 03:05] LABS: Alanine Aminotransferase 13 U/L (0-33); Albumin Level 3.6 g/dL (3.5-5.2); Alkaline Phosphatase 132 IU/L (35-105); Anion Gap 12.4 (5-19); Aspartate Amino Transferase 24 U/L (0-32); Blood Urea Nitrogen 10 mg/dL (6-20); Carbon Dioxide 23 mmol/L (22-29); Chloride 103 mmol/L (98-107); Globulin 2.2 g/dL (1.3-4.6); Glomerular Filtration Rate 151.6 mL/min (90-130); Glucose 89 mg/dL (65-115); Osmolality Calculated 279 mOsm/kg (285-295); Potassium 3.4 mmol/L (3.5-5.1); Sodium 135 mmol/L (136-145); Total Bilirubin 0.4 mg/dL (0.15-1.2); Total Protein 5.8 g/dL (6.6-8.7)
[2020-04-02 03:08] LABS: Troponin 5 6HR 7.52 ng/L (0-10)
[2020-04-02 03:16] LABS: Thyroid Stimulating Hormone 0.02 uIU/mL (0.27-4.20)
[2020-04-02 03:35] LABS: Troponin 5 6HR Delta -0.48 ng/L (0-12)
--- NOTE | 2020-04-02 09:15 | PM.PN ---
Subjective Subjective: Interval history: Patient is in the ICU. Remains nonverbal. Vitals/I&O/Wt Last Vital Signs Temp 99.9 F H 04/02/20 05:34 Pulse 114 H 04/02/20 04:00 Resp 20 H 04/02/20 04:00 BP 80/61 04/02/20 04:00 Pulse Ox 96 04/02/20 04:00 04/01/20 04/02/20 04/02/20 22:59 06:59 14:59 Output Total 850 / 850 Balance -850 / -850 Weight last 48 hrs Weight 116 lb Physical Exam Narrative: EXAM NARRATIVE: The patient appears more comfortable this morning. She even smiles at times. Her nasogastric tube is still draining some light brown/green material. Her abdomen is even softer today than it was last night when I saw her. Bowel sounds are still very hypoactive, however. Urinary Catheter Management^: Sequeira: Cath Placed During This Visit: yes Urinary Catheter Date of Insertion: 04/01/20 Urinary Catheter Time of Insertion: 22:27 Data : 04/02/20 02:30 04/02/20 02:30 Micro: Microbiology 04/02/20 00:40 C.difficile Toxin B Gene (PCR) - Final Stool Routine Collection 04/01/20 15:45 Blood Culture - Preliminary Blood SPECIMEN COLLECTED 04/01/20 15:46 Blood Culture - Preliminary Blood SPECIMEN COLLECTED A&P Assessment and plan (1) Pylephlebitis: I do see some possible evidence of portal venous air in the periphery of the liver on the presentation CT, but I am not sure that I agree with the radiologist that the stomach has gas within the wall. It would be nearly impossible to completely devascularize the stomach from an infarction since it has so many sources of blood flow. One of the causes of portal venous air is gastric or intestinal distention, which the patient clearly has. There is not an obvious source of infection in the abdomen on the CAT scan and the patient's abdominal exam has never been terribly worrisome in my mind. Status: Acute (2) Fecal impaction: Nursing reports good results from the enema that I ordered last night. The patient clearly had a significant fecal impaction in the distal sigmoid and rectum on the presentation imaging, and this may have been her primary gastrointestinal problem. I have to wonder, given the limited history provided by the patient's grandmother, if she has continued to distend the patient's stomach by putting tube feedings in over the past week when the patient may have not been having regular bowel movements. This would explain the gastric distention, the oozing of gastric contents from the gastrostomy site and may even explain the presence of portal venous gas. Status: Acute Attestations Medical Necessity Statement*: See admitting service's notation. Coding Level of Care Code Acute Lpn Rn for [facility] Diagnoses Pylephlebitis K75.1 Fecal impaction K56.41
[2020-04-02] MEDS: lamoTRIgine 100 mg Tablet 400 MG PO ×2 (12:03→17:44)
[2020-04-02] MEDS: levothyroxine 125 mcg Tablet PO (12:04)
[2020-04-02] MEDS: CLONazepam 1 mg Tablet PO ×3 (12:04→20:00)
--- NOTE | 2020-04-02 18:04 | P.PN_ITS ---
Subjective Subjective: Interval history: Unchanged since admission, non-verbal. No reported fever, chills, nausea or vomiting. Vitals/I&O/Wt Last Vital Signs Temp 101.3 F H 04/02/20 12:00 Pulse 102 H 04/02/20 16:00 Resp 20 H 04/02/20 16:00 BP 104/67 04/02/20 16:00 Pulse Ox 96 04/02/20 16:00 04/02/20 04/02/20 04/02/20 06:59 14:59 22:59 Intake Total 165 / 165 1000 / 1000 767.5 / 1767.5 Output Total 850 / 850 Balance -685 / -685 1000 / 1000 767.5 / 1767.5 Weight last 48 hrs Weight 52.617 kg Physical Exam Narrative: EXAM NARRATIVE: GENERAL: Awake, nonverbal at baseline, does not follow any commands. - NG in palce to LIS HEENT: Normocephalic, atraumatic, PERRL conjunctival congestion present bilaterally. [] CHEST: Clear to auscultation bilaterally anteriorly. [] CVS: S1, S2 normal. No murmur, rubs, gallops. [] ABDOMEN: Soft, distended, unable to assess for tenderness. Bowel sounds not heard. Leaking both biliary appearing fluid around PEG site which is noted in the epigastric region - unchanged NEUROVASCULAR: Bilateral contractures in lower extremity, does not move any ext remity, does not follow commands. EXTREMITIES: No edema. [] Urinary Catheter Management^: Sequeira: Cath Placed During This Visit: yes Reason for Continuing Indwelling Catheter: Accurate Measurement of Urinary Output in Critically Ill Patients Urinary Catheter Date of Insertion: 04/01/20 Urinary Catheter Time of Insertion: 22:27 Data : 04/02/20 02:30 04/02/20 02:30 Micro: Microbiology 04/01/20 15:45 Blood Culture - Preliminary Blood NEGATIVE TO DATE 04/01/20 15:46 Blood Culture - Preliminary Blood NEGATIVE TO DATE 04/02/20 00:40 C.difficile Toxin B Gene (PCR) - Final Stool Routine Collection A&P Assessment and plan (1) Sepsis: Status: Acute Qualifiers: Sepsis type: sepsis due to unspecified organism Sepsis acute organ dysfunction status: unspecified Qualified Code(s): A41.9 - Sepsis, unspecified organism (2) Pylephlebitis: Status: Acute (3) Adynamic ileus: Status: Acute (4) Cerebral palsy: Status: Acute Qualifiers: Cerebral palsy type: unspecified type Qualified Code(s): G80.9 - Cerebral palsy, unspecified (5) Seizure disorder: Status: Acute Additional A&P Information # Sepsis likely due to intra-abdominal source vs aspiration - Continue IV zosyn for now - Follow up on culture - Continue IVF - Repeat lactate in am #HPVG noted on CT - D/w surgery - NG tube placed LIS - slight blood tinged output - No surgical intervention at this time - Hold tube feeding # Seizure disorder - Phenobarbital level high - Repeat in AM - Holding phenobarbital today - EEG ordered at admission - Remainder of AED continued - Seizure precautions #Hypothyroidism - Synthroid 125 mcg po daily # Quadraplegic cerebral palsy - PT/OT on consult CODE STATUS is full code per discussion with grandmother GI ppx - Protonix 40 mg IV daily DVT prophylaxis: SCD only due to blood tinged output Attestations Medical Necessity Statement*: Will require continued hospitalization for ongoing sepsis requiring iv antibiotics. 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
[2020-04-02] MEDS: acetaminophen 325 mg Tablet 650 MG PO (19:54)
[2020-04-02] MEDS: ofloxacin 0.3% otic 5 mL Btl 5 DROP EAR-BOTH (19:54)
--- NOTE | 2020-04-02 19:54 | PC.NURSE ---
Temp 101.2 Pt hot to touch and flushed to flush. Axillary temp 101.2. 650 acetaminophen crushed and given per NG tube. NG tube camped at this time. Pt incontinent of moderate liquid bender stool. Pt cleansed and repositioned onto left side. Oral care given.
--- NOTE | 2020-04-02 23:35 | PC.NURSE ---
Report called to ELVIA Alaniz on [employer] at this time.
[2020-04-03] VITALS (10 sets, daily range): BP systolic 98–129; BP diastolic 64–91; PULSE 71–107; RESP 16–20; TEMP 36.1–38.4; O2SAT 91–100
--- NOTE | 2020-04-03 00:09 | PC.NURSE ---
Attempted to notify Charlee Bliss and Fallon Bliss by phone numbers listed on chart to update on transfer status to [facility]. Received message by both numbers that voice mailbox has not been set up yet, unable to leave a message.
[2020-04-03] MEDS: piperacillin-tazobactam 3.375 GM in sodium chloride 0.9% (plus) 50 ML IV ×3 (02:37→18:32)
[2020-04-03 05:29] LABS: Basophils # 0.1 10^3/uL (0.0-0.1); Basophils % 0.7 %; Eosinophils # 0.1 10^3/uL (0.0-0.8); Eosinophils % 1.1 %; Hematocrit 30.8 % (37.0-47.0); Hemoglobin 9.4 g/dL (11.5-15.3); Lymphocytes # 2.5 10^3/uL (0.8-4.8); Lymphocytes % 35.6 %; Mean Corpuscular HGB Conc 30.5 g/dL (30.0-36.0); Mean Corpuscular Hemoglobin 30.8 pg (28.0-34.0); Monocytes # 0.6 10^3/uL (0.2-0.9); Monocytes % 8.4 %; Neutrophils # 3.75 10^3/uL (1.8-7.7); Neutrophils % 53.8 %; Nucleated Red Blood Cells % 0 %; Platelet Count 175 10^3/cmm (130-400); Red Blood Count 3.05 10^6/uL (4.1-5.3)
[2020-04-03 05:55] LABS: Alanine Aminotransferase 12 U/L (0-33); Albumin Level 2.6 g/dL (3.5-5.2); Alkaline Phosphatase 106 IU/L (35-105); Aspartate Amino Transferase 30 U/L (0-32); Blood Urea Nitrogen 4 mg/dL (6-20); Calcium 7.7 mg/dL (8.5-10.5); Carbon Dioxide 16 mmol/L (22-29); Chloride 106 mmol/L (98-107); Globulin 2.7 g/dL (1.3-4.6); Glomerular Filtration Rate 273.3 mL/min (90-130); Osmolality Calculated 273 mOsm/kg (285-295); Sodium 135 mmol/L (136-145); Total Bilirubin 0.3 mg/dL (0.15-1.2); Total Protein 5.3 g/dL (6.6-8.7)
[2020-04-03 05:57] LABS: Lactate (Lactic Acid level) 0.4 mmol/L (0.5-2.2)
[2020-04-03 06:00] LABS: Anion Gap 16.1 (5-19); Potassium 3.1 mmol/L (3.5-5.1)
[2020-04-03 06:02] LABS: Glucose 32 mg/dL (65-115)
[2020-04-03] MEDS: dextrose 50% syringe 50 mL IVP (06:36)
[2020-04-03] MEDS: dextrose 5%-sod chloride 0.9% 1,000 ML 100 ML IV (06:39)
[2020-04-03 06:54] LABS: Glucose Point of Care 152 mg/dL (70-110)
[2020-04-03] MEDS: levothyroxine 125 mcg Tablet PO (08:56)
[2020-04-03] MEDS: CLONazepam 1 mg Tablet PO ×3 (08:56→22:25)
[2020-04-03] MEDS: lamoTRIgine 100 mg Tablet 400 MG PO ×2 (08:56→17:51)
[2020-04-03] MEDS: ofloxacin 0.3% otic 5 mL Btl 5 DROP EAR-BOTH ×2 (08:59→18:13)
--- NOTE | 2020-04-03 09:27 | P.PN_ITS ---
Subjective Subjective: Interval history: Patient remains nonverbal but is making some expiratory moaning noises. Her level of consciousness seems about the same. Vitals/I&O/Wt Last Vital Signs Temp 97.0 F L 04/03/20 07:00 Pulse 93 04/03/20 07:00 Resp 16 04/03/20 07:00 BP 106/78 04/03/20 07:00 Pulse Ox 96 04/03/20 07:00 04/02/20 04/03/20 04/03/20 22:59 06:59 14:59 Intake Total 1932.5 / 2932.5 Output Total 250 / 800 550 / 800 Balance 1682.5 / 2132.5 -550 / 2132.5 Weight last 48 hrs Weight 116 lb Physical Exam Narrative: EXAM NARRATIVE: The abdomen remains soft. Bowel sounds remain hyp oactive. Urinary Catheter Management^: Sequeira: Cath Placed During This Visit: yes Reason for Continuing Indwelling Catheter: Assist Healing of Perineal & Sacral Wounds- Incontinent Patients Urinary Catheter Date of Insertion: 04/01/20 Urinary Catheter Time of Insertion: 22:27 Data : 04/03/20 05:13 04/03/20 05:13 Micro: Microbiology 04/01/20 15:45 Blood Culture - Preliminary Blood NEGATIVE TO DATE 04/01/20 15:46 Blood Culture - Preliminary Blood NEGATIVE TO DATE 04/02/20 00:40 C.difficile Toxin B Gene (PCR) - Final Stool Routine Collection A&P Assessment and plan (1) Pylephlebitis: I do see some possible evidence of portal venous air in the periphery of the liver on the presentation CT, but I am not sure that I agree with the radiologist that the stomach has gas within the wall. It would be nearly impossible to completely devascularize the stomach from an infarction since it has so many sources of blood flow. One of the causes of portal venous air is gastric or intestinal distention, which the patient clearly has. There is not an obvious source of infection in the abdomen on the CAT scan and the patient's abdominal exam has never been terribly worrisome in my mind. Status: Acute (2) Fecal impaction: Hopefully resolved with the enema the night of admission. Status: Acute Attestations Medical Necessity Statement*: See admitting service's notation. 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
[2020-04-03 11:18] LABS: Glucose Point of Care 93 mg/dL (70-110)
[2020-04-03] MEDS: potassium chloride premix 100 ML 25 MEQ IV (11:30)
--- NOTE | 2020-04-03 11:49 | P.PN_ITS ---
Subjective Subjective: Interval history: This morning patient was examined, she is nonverbal at baseline, she groans, she does not really follow commands, overnight she had a T-max of 101.2,1 had a hypotensive episode of 98/64, currently 129/91, saturating 100% on room air, Vitals/I&O/Wt Last Vital Signs Temp 99.0 F 04/03/20 11:19 Pulse 71 04/03/20 11:19 Resp 16 04/03/20 11:19 BP 129/91 04/03/20 11:19 Pulse Ox 100 04/03/20 11:19 04/02/20 04/03/20 04/03/20 22:59 06:59 14:59 Intake Total 1932.5 / 2932.5 50 / 2982.5 Output Total 250 / 250 550 / 800 1200 / 1200 Balance 1682.5 / 2682.5 -500 / 2182.5 -1200 / -1200 Weight last 48 hrs Weight 52.617 kg Physical Exam Const: COMMON NORMALS: no acute distress OTHER: Patient is nonverbal at baseline, she does not follow commands HENMT: COMMON NORMALS: normocephalic HEAD & SCALP: normocephalic Eye: COMMON NORMALS: Equal, round and reactive pupils present PUPIL: Yes Equal, round and reactive pupils present Neck/C-Spine: COMMON NORMALS: no lymphadenopathy, no JVD and Thyroid normal THYROID: Thyroid normal Resp: COMMON NORMALS: normal respiratory effort, No retractions, No use of acc essory muscles and clear to auscultation bilaterally AUSCULTATION: clear to auscultation bilaterally Cardio: COMMON NORMALS: no JVD, regular rate, regular rhythm, S1 normal heart sound present and S2 normal heart sound present RATE: regular rate RHYTHM: regular rhythm HEART SOUNDS: S1 normal heart sound present and S2 normal heart sound present GI: COMMON NORMALS: Normal to inspection, nondistended, normoactive bowel sounds present, Soft to palpation, non-tender and No hepatosplenomegaly present PALPATION: Yes Soft to palpation and Yes No hepatosplenomegaly present OTHER: G-tube in place Extremity: COMMON NORMALS: normal to inspection and no clubbing, cyanosis or edema Urinary Catheter Management^: Sequeira: Cath Placed During This Visit: yes Reason for Continuing Indwelling Catheter: Assist Healing of Perineal & Sacral Wounds- Incontinent Patients Urinary Catheter Date of Insertion: 04/01/20 Urinary Catheter Time of Insertion: 22:27 Data : 04/03/20 05:13 04/03/20 05:13 Micro: Microbiology 04/01/20 15:45 Blood Culture - Preliminary Blood NEGATIVE TO DATE 04/01/20 15:46 Blood Culture - Preliminary Blood NEGATIVE TO DATE A&P Assessment and plan (1) Sepsis: Status: Acute Qualifiers: Sepsis type: sepsis due to unspecified organism Sepsis acute organ dysfunction status: unspecified Qualified Code(s): A41.9 - Sepsis, unspecified organism (2) Pylephlebitis: Status: Acute (3) Adynamic ileus: Status: Acute (4) Cerebral palsy: Status: Acute Qualifiers: Cerebral palsy type: unspecified type Qualified Code(s): G80.9 - Cerebral palsy, unspecified (5) Seizure disorder: Status: Acute (6) Recurrent fever: Status: Acute (7) Pylephlebitis: Status: Acute Additional A&P Information # Sepsis likely aspiration pneumoniae -However continues to have fevers, T-max 101.2 in the last 24 hours despite being on antibiotics -Has some bronchiolitis in the right upper lobe seen on CT of the chest -Urine cultures so far unremarkable, blood cultures so far unremarkable -Saturating on in the 90s on room air, had a few hypotensive episodes overnight PLAN: -Repeat blood cultures, urine cultures, viral panel, inflammatory markers, chest x-ray - Continue IV zosyn for now - Follow up on culture - Continue IVF #Pylephlebitis, hepatic venous gas - D/w surgery, has some evidence of portal venous gas in the periphery of the liver - NG tube placed very minimal output, okay to discontinue -Discussed with general surgery okay to start PEG tube feeds, monitor residuals closely - No surgical intervention at this time # Seizure disorder - Phenobarbital level 35.5, has decreased to 23.3, phenobarbital has been stopped -Currently on Keppra 1500 twice daily, Lamictal 400 mg twice daily, clonazepam 1 mg p.o. 3 times daily, Banzel 1400 mg twice daily - EEG ordered at admission - Remainder of AED continued - Seizure precautions #Hypothyroidism -TSH low at 0.02 -Decrease Synthroid 100 mcg po daily # Quadraplegic cerebral palsy - PT/OT on consult -Has a neurostimulator in place # Deep tissue injury of the right elbow -Continue offloading, continue to monitor CODE STATUS is full code per discussion with grandmother GI ppx - Protonix 40 mg IV daily DVT prophylaxis: SCD only due to blood tinged output Initially in the ER there was concerns for grandma's behavior, jackelin was apparently removing patient's PEG tube, and putting it back in, and giving medication the PEG tube when she was told not to, she has been hotline by staff Attestations Medical Necessity Statement*: Hospitalization, inpatient for sepsis secondary to aspiration pneumonia, hpvg Coding Level of Care Code 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
--- NOTE | 2020-04-03 11:55 | XR_ITS ---
WS: [id number] Exam: XR chest 1V portable [id number] Date/Time of Exam: 04/03/2020 11:55 AM Reason For Exam: sob Comparison made to prior studies 04/01/2020. The lungs are clear and fully inflated. Normal cardiomediastinal structures. Levoscoliosis of the tho racic spine with Reardon rods. Neurostimulator superimposing the left chest. Overall, no change. XR/XR chest 1V portable [id number] IMPRESSION: 1. No acute cardiopulmonary finding. No change.
--- NOTE | 2020-04-03 11:55 | USCV_ITS ---
Jennyfer Bliss Age: 24 Gender: F : 1995 Exam Date: 04/03/2020 15:45 Ordering Phys: Andres Wong MD Technologist: Zachary Frausto Exam Location: [facility] – [place] Indication: BED STASIS HISTORY: Edema. PROCEDURES: The venous duplex Doppler examination of both lower extremities was performed in the standard fashion. Bilaterally, the common femoral, superficial femoral, profunda femoral, popliteal, posterior tibial, greater saphenous veins, and the peroneal trunk were identified and interrogated in the standard fashion. These veins were found to be easily compressible with spontaneous blood flow. No evidence of insufficiency or thrombus noted. FINDINGS: Normal 2-D Doppler and augmentation and compressibility throughout the lower extremity venous structures. Additional imaging through the proximal calf veins also reveals no thrombus. Limited evaluation of the greater saphenous vein is patent with no thrombus.. CONCLUSIONS No evidence of DVT in the above-mentioned identifiable veins. Dr Maira Koo MD [facility] (Electronically Signed) Final Date: 04 April 2020 07:32 S
--- NOTE | 2020-04-03 12:04 | PC.NURSE ---
Pt is coughing. I moistened a sponge and cleaned her mouth and lips. She tolerated it well.
[2020-04-03 12:48] LABS: Erythrocyte Sedimentation Rate 30 mm/hr (0-15)
[2020-04-03 14:29] LABS: Hematocrit 30.7 % (37.0-47.0)
[2020-04-03 14:40] LABS: Lactic Sepsis W/Reflex 1.7 mmol/L (0.5-2.2)
--- NOTE | 2020-04-03 15:00 | PC.NURSE ---
Patient's tube feeding was started at this time at 20 cc hour. Patient to be increased by 10 after six hours.
[2020-04-03] MEDS: guaiFENesin-dextromethorphan UDC 10 mL PO (16:26)
--- NOTE | 2020-04-03 20:04 | PC.NURSE ---
Addendum entered by Zulema Meza RN 04/03/20 20:04: Report to Manju LEWIS at this time. Original Note: Report to Manju GAN.
[2020-04-04] VITALS (7 sets, daily range): BP systolic 99–115; BP diastolic 68–79; PULSE 68–88; RESP 16–18; TEMP 36.7–38.1; O2SAT 93–100
[2020-04-04] MEDS: pantoprazole 40 mg SDV IVP (00:14)
[2020-04-04] MEDS: acetaminophen 325 mg Tablet 650 MG PO (00:24)
[2020-04-04] MEDS: enoxaparin 40 mg/0.4 mL Syringe SUBCUT (00:57)
[2020-04-04 03:24] LABS: Glucose Point of Care 85 mg/dL (70-110)
[2020-04-04 03:24] LABS: Glucose Point of Care 79 mg/dL (70-110)
[2020-04-04] MEDS: piperacillin-tazobactam 3.375 GM in sodium chloride 0.9% (plus) 50 ML IV ×2 (03:25→09:39)
[2020-04-04 05:48] LABS: Glucose Point of Care 69 mg/dL (70-110)
[2020-04-04] MEDS: dextrose 50% syringe 50 mL IVP (06:06)
[2020-04-04 06:52] LABS: Glucose Point of Care 169 mg/dL (70-110)
--- NOTE | 2020-04-04 07:28 | PC.NURSE ---
During shift assessment this nurse noted the PT PEG tube site was draining frothy yellow drainage, PT was grimacing as if in discomfort, and area around PEG tube site was reddened. Dr. Ibrahim was informed and verbal orders to hold continuous feeding given to nurse, provider ordered nurse to check pts blood sugar throughout the night and admin D50 if blood sugar less than 70. Nurse cleansed site with 2x2 gauze sponge and saline, and split sponge applied to Peg tube site. Pt slept well throughout the night with no signs of discomfort, Blood sugar was 69 at 0531 and 1 AMP D50 given, Blood sugar rechecked at 0643 and was 169.
--- NOTE | 2020-04-04 08:53 | DCPLANNER ---
IMM completed on 04/04/2020 @ 0807am with pt's grandmother, Fallon over the phone.
--- NOTE | 2020-04-04 09:16 | P.PN_ITS ---
Subjective Subjective: Interval history: The patient remains nonverbal this morning. She is not moaning with expiration as she did yesterday. Nursing reports a very large bowel movement last night. Tube feedings were apparently initiated, but were stopped last night due to some leakage around the gastrostomy button. Vitals/I&O/Wt Last Vital Signs Temp 98.1 F 04/04/20 07:52 Pulse 70 04/04/20 07:52 Resp 18 04/04/20 07:52 BP 99/75 04/04/20 07:52 Pulse Ox 100 04/04/20 07:52 04/03/20 04/04/20 04/04/20 22:59 06:59 14:59 Intake Total 340 / 455 Output Total 1350 / 3150 600 / 3150 Balance -1010 / -2695 -600 / -2695 Physical Exam Narrative: EXAM NARRATIVE: Abdomen is very soft and has good bowel sounds this morning. Urinary Catheter Management^: Sequeira: Cath Placed During This Visit: yes Reason for Continuing Indwelling Catheter: Assist Healing of Perineal & Sacral Wounds- Incontinent Patients Urinary Catheter Date of Insertion: 04/01/20 Urinary Catheter Time of Insertion: 22:27 Data : 04/03/20 14:12 04/03/20 05:13 Micro: Microbiology 04/03/20 14:12 Blood Culture - Preliminary Blood SPECIMEN COLLECTED 04/03/20 13:34 Blood Culture - Preliminary Blood SPECIMEN COLLECTED A&P Assessment and plan (1) Pylephlebitis: Fortunately, I do not think the findings on the initial CT indicated a grave prognosis, and I suspect were probably from gastric/intestinal distention. The patient appears to be quite stable at present. I have asked the nurse check the gastrostomy button balloon to make sure there are 10 mL of fluid present, as the patient's grandmother was apparently frequently removing this prior to admission. If the balloon is not fully inflated that would be a good reason why some leaking around the button would be occurring. Status: Acute (2) Fecal impaction: Appears to have resolved. I will be available if needed, but may not continue to see the patient daily. Please call if I can be of further help. Status: Acute Attestations Medical Necessity Statement*: See admitting service's notation. Coding Level of Care Code Acute Chemical Technician for [facility] Fwd Diagnoses Pylephlebitis K75.1 Fecal impaction K56.41
[2020-04-04] MEDS: CLONazepam 1 mg Tablet PO ×3 (09:35→21:54)
[2020-04-04] MEDS: lamoTRIgine 100 mg Tablet 400 MG PO ×2 (09:35→17:25)
[2020-04-04] MEDS: levothyroxine 100 mcg Tablet PO (09:35)
[2020-04-04] MEDS: ofloxacin 0.3% otic 5 mL Btl 5 DROP EAR-BOTH ×2 (09:39→17:25)
[2020-04-04 09:57] LABS: Basophils % 0.8 %; Eosinophils # 0.4 10^3/uL (0.0-0.8); Eosinophils % 7.7 %; Hematocrit 31.6 % (37.0-47.0); Hemoglobin 10.2 g/dL (11.5-15.3); Lymphocytes # 2.9 10^3/uL (0.8-4.8); Lymphocytes % 57.8 %; Mean Corpuscular HGB Conc 32.3 g/dL (30.0-36.0); Mean Corpuscular Hemoglobin 30.5 pg (28.0-34.0); Mean Corpuscular Volume 94.6 fL (81-99); Mean Platelet Volume 9.7 fL (7.4-10.4); Monocytes # 0.6 10^3/uL (0.2-0.9); Monocytes % 10.8 %; Neutrophils # 1.15 10^3/uL (1.8-7.7); Neutrophils % 22.5 %; Nucleated Red Blood Cells % 0 %; Platelet Count 187 10^3/cmm (130-400); Red Blood Count 3.34 10^6/uL (4.1-5.3); Red Cell Distribution Width 12.5 % (12.1-15.1); White Blood Count 5.1 10^3/uL (4.0-10.0)
[2020-04-04 10:15] LABS: Alanine Aminotransferase 19 U/L (0-33); Albumin Level 3.2 g/dL (3.5-5.2); Alkaline Phosphatase 109 IU/L (35-105); Anion Gap 9.2 (5-19); Aspartate Amino Transferase 42 U/L (0-32); Blood Urea Nitrogen 2 mg/dL (6-20); Calcium 8.5 mg/dL (8.5-10.5); Carbon Dioxide 25 mmol/L (22-29); Chloride 102 mmol/L (98-107); Globulin 2.9 g/dL (1.3-4.6); Glomerular Filtration Rate 273.3 mL/min (90-130); Glucose 43 mg/dL (65-115); Magnesium 1.7 mg/dL (1.7-2.3); Osmolality Calculated 269 mOsm/kg (285-295); Phosphorus 1.1 mg/dL (2.5-4.5); Potassium 3.2 mmol/L (3.5-5.1); Sodium 133 mmol/L (136-145); Total Bilirubin 0.4 mg/dL (0.15-1.2); Total Protein 6.1 g/dL (6.6-8.7)
[2020-04-04] MEDS: azithromycin 500 MG in sodium chloride 0.9% 250 ML 250 MG IV (11:18)
[2020-04-04] MEDS: lidocaine 1% 5 ML in potassium chloride premix 100 ML 25 ML IV (11:18)
[2020-04-04] MEDS: vancomycin 750 MG in sodium chloride 0.9% 250 ML 250 MG IV ×2 (11:18→17:25)
[2020-04-04 11:24] LABS: Procalcitonin 0.39 ng/mL (0-0.5)
[2020-04-04 11:35] LABS: C Reactive Protein 157.5 mg/L (0.0-4.9)
[2020-04-04] MEDS: potassium chloride oral liq 20 mEq/15 mL UDC 40 MEQ PO (11:53)
--- NOTE | 2020-04-04 13:11 | FL_ITS ---
WS: [id number] LUMBAR PUNCTURE UNDER FLUOROSCOPY: OBTAIN CSF FOR ANALYSIS HISTORY: temperature spike COMPARISON: None available. FLUOROSCOPY TIME: 2 minutes. Consent has been obtained. The lumbar puncture was unsuccessful due to patient movement. Patient was unable to remain still for this examination. FL/FL guided lumbarpunc dx* [id number] IMPRESSION: Unsuccessful lumbar puncture due to movement of the patient.
--- NOTE | 2020-04-04 13:22 | P.PN_ITS ---
Subjective Subjective: Interval history: This morning patient was examined, she is lying quietly in bed, she does not really respond, no groaning or moaning this morning, she remains febrile with T-max of 101.2, white blood cell count 5.1, CRP 157.5, pro-Corwin 0.39, first set of blood cultures no growth, second blood cultures no growth, urine culture pending, C. difficile negative, rapid Covid ne gative, flu negative. Given patient's persistent fevers, without a clear source, will perform a lumbar puncture to rule out meningitis, she is already on broad-spectrum antibiotics vancomycin and Zosyn, have consulted radiology to perform, hopefully will be performed later on today, patient's sister was informed about her clinical status, she was understanding, all questions answered, agreed to proceed with plan. Patient's chest x-rays do not show any findings consistent with Covid, her rapid Covid was negative, she not requiring any oxygen, she does not have any cough that I can observe, but have ordered a rapid Covid just to be on the safe side Vitals/I&O/Wt Last Vital Signs Temp 98.2 F 04/04/20 12:00 Pulse 70 04/04/20 12:00 Resp 18 04/04/20 12:00 BP 115/79 04/04/20 12:00 Pulse Ox 100 04/04/20 12:00 04/03/20 04/04/20 04/04/20 22:59 06:59 14:59 Intake Total 340 / 455 115 / 570 50 / 50 Output Total 1350 / 2550 600 / 3150 1200 / 1200 Balance -1010 / -2095 -485 / -2580 -1150 / -1150 Physical Exam Const: COMMON NORMALS: no acute distress ORIENTATION/CONSCIOUSNESS: Yes awake; not oriented to person, not oriented to place and not oriented to time HENMT: COMMON NORMALS: normocephalic HEAD & SCALP: normocephalic Neck/C-Spine: COMMON NORMALS: no JVD Resp: COMMON NORMALS: normal respiratory effort, No retractions, No use of accessory muscles and clear to auscultation bilaterally AUSCULTATION: clear to auscultation bilaterally Cardio: COMMON NORMALS: no JVD, regular rate, regular rhythm, S1 normal heart sound present and S2 normal heart sound present RATE: regular rate RHYTHM: regular rhythm HEART SOUNDS: S1 normal heart sound present and S2 normal he art sound present GI: COMMON NORMALS: Normal to inspection, nondistended, normoactive bowel sounds present, Soft to palpation, non-tender, No hepatosplenomegaly present, no masses and no bruits PALPATION: Yes Soft to palpation and Yes No hepatosplenomegaly present Extremity: COMMON NORMALS: capillary refill normal, no clubbing, cyanosis or edema, no calf tenderness and no pedal edema Neuro: SENSORIUM/ORIENTATION: No oriented to person, No oriented to place and No oriented to time Psych: COMMON NORMALS: mental status grossly normal Urinary Catheter Management^: Sequeira: Cath Placed During This Visit: yes Reason for Continuing Indwelling Catheter: Assist Healing of Perineal & Sacral Wounds- Incontinent Patients Urinary Catheter Date of Insertion: 04/01/20 Urinary Catheter Time of Insertion: 22:27 Data : 04/04/20 09:47 04/04/20 09:47 Micro: Microbiology 04/03/20 14:12 Blood Culture - Preliminary Blood SPECIMEN COLLECTED 04/03/20 13:34 Blood Culture - Preliminary Blood SPECIMEN COLLECTED A&P Assessment and plan (1) Sepsis: Status: Acute Qualifiers: Sepsis type: sepsis due to unspecified organism Sepsis acute organ dysfunction status: unspecified Qualified Code(s): A41.9 - Sepsis, unspecified organism (2) Pylephlebitis: Status: Acute (3) Adynamic ileus: Status: Acute (4) Cerebral palsy: Status: Acute Qualifiers: Cerebral palsy type: unspecified type Qualified Code(s): G80.9 - Cerebral palsy, unspecified (5) Seizure disorder: Status: Acute (6) Recurrent fever: Status: Acute Additional A&P Information # Sepsis, persistent fevers -Initial concerns for aspiration pneumonia, given CT angiogram findings, has been on Zosyn since admission, but continues to have fevers x2 -However continues to have fevers, T-max 101.2 in the last 24 hours despite being on antibiotics -Has some bronchiolitis in the right upper lobe seen on CT of the chest -Urine cultures so far unremarkable, blood cultures so far unremarkable -Saturating on in the 90s on room air, map greater than 65 PLAN: -Follow blood cultures, urine cultures, viral panel, inflammatory markers, chest x-ray -Continue vancomycin and Zosyn - Follow up on culture - Continue IVF -Have consulted radiology for lumbar puncture -We will order echocardiogram to evaluate for endocarditis -We will order a right upper quadrant ultrasound to evaluate gallbladder, as she has risk factors of tube feeds -We will consider ordering CT imaging of the spine to rule out vertebral osteomyelitis and/or discitis and or epidural abscess #Pylephlebitis, hepatic venous gas - D/w surgery, has some evidence of portal venous gas in the periphery of the liver - NG tube placed very minimal output, okay to discontinue -Discussed with general surgery okay to start PEG tube feeds, monitor residuals closely - No surgical intervention at this time # Seizure disorder - Phenobarbital level 35.5, has decreased to 23.3, phenobarbital has been stopped -Currently on Keppra 1500 twice daily, Lamictal 400 mg twice daily, clonazepam 1 mg p.o. 3 times daily, Banzel 1400 mg twice daily - EEG ordered at admission - Remainder of AED continued - Seizure precautions #Hypothyroidism -TSH low at 0.02 -Decrease Synthroid 100 mcg po daily # Quadraplegic cerebral palsy - PT/OT on consult -Has a neurostimulator in place # Deep tissue injury of the right elbow -Continue offloading, continue to monitor CODE STATUS is full code per discussion with grandmother GI ppx - Protonix 40 mg IV daily DVT prophylaxis: SCD only due to blood tinged output Initially in the ER there was concerns for grandma's behavior, grandma was apparently removing patient's PEG tube, and putting it back in, and giving medication the PEG tube when she was told not to, she has been hotline by staff Attestations Medical Necessity Statement*: Patient requires hospitalization for sepsis, concerning for possible meningitis, recurrent fevers Coding Level of Care Code Acute Starting Gate Driver for [facility] Fwd Diagnoses Sepsis A41.9 Sepsis type: sepsis due to unspecified organism Sepsis acute organ dysfunction status: unspecified Pylephlebitis K75.1 Adynamic ileus K56.0 Cerebral palsy G80.9 Cerebral palsy type: unspecified type Seizure disorder G40.909 Recurrent fever A68.9
[2020-04-04 13:27] LABS: Erythrocyte Sedimentation Rate 57 mm/hr (0-15)
--- NOTE | 2020-04-04 13:28 | USCV_ITS ---
Izaiah Jennyfer Age: 24 Gender: F : 1995 Exam Date: 04/04/2020 15:40 Ordering Phys: Andres Wong MD Technologist: Zachary Fruasto Exam Location: [facility] [place] Indication: FEVERS BP: 122 / 67 HR: 77 Rhythm: Sinus Technical Quality: Technically difficult study MEASUREMENTS (Male / Female) Normal Values 2D ECHO LV Diastolic Diameter PLAX 3.0 cm 4.2 - 5.9 / 3.9 - 5.3 cm LV Systolic Diameter PLAX 1.6 cm IVS Diastolic Thickness 0.6 cm 0.6 - 1.0 / 0.6 - 0.9 cm IVS Systolic Thickness 0.9 cm LVPW Diastolic Thickness 0.7 cm 0.6 - 1.0 / 0.6 - 0.9 cm LVPW Systolic Thickness 0.8 cm LVOT Diameter 2.0 cm LV Ejection Fraction 2D Teich 79.8 % LV Ejection Fraction MOD 2C 59.7 % LV Ejection Fraction 2C AL 60.8 % LA Diameter 2.8 cm LA Width 2.6 cm LA Height 3.6 cm RA Width 2.8 cm RA Height 3.4 cm Aorta at Sinotubular Diameter 2.1 cm M-MODE LV Diastolic Diameter MM 2.9 cm 4.2 - 5.9 / 3.9 - 5.3 cm LV Systolic Diameter MM 1.9 cm LV Ejection Fraction MM Teich 66.7 % IVS Diastolic Thickness MM 0.6 cm 0.6 - 1.0 / 0.6 - 0.9 cm IVS Systolic Thickness MM 1.0 cm LVPW Diastolic Thickness MM 0.9 cm 0.6 - 1.0 / 0.6 - 0.9 cm LVPW Systolic Thickness MM 1.1 cm RV Diastolic Diameter MM 1.2 cm Aortic Annulus Diameter 3.3 cm LA Ao Ratio MM 1.0 MV E Point Septal Separation 0.6 cm DOPPLER AV Peak Velocity 94.3 cm/s LVOT Peak Velocity 70.0 cm/s AV Area Cont Eq vti 1.7 cm squared AV Area Cont Eq pk 2.2 cm squared MV Area PHT 4.8 cm squared Mitral E to A Ratio 1.9 MV E' Velocity 47.0 cm/s Mitral E to MV E' Ratio 5.2 Mitral E to LV E' Lateral Ratio 4.4 Mitral E to LV E' Septal Ratio 6.3 TR Peak Velocity 101.0 cm/s TR Peak Gradient 4.1 mmHg FINDINGS Left Ventricle Normal left ventricular cavity size. Normal left ventricular systolic function. No regional wall motion abnormalities. Left ventricular ejection fraction is estimated at 60 %. Normal diastolic function. Right Ventricle The right ventricle is normal in size and function. RVSP could not be calculated due to incomplete tricuspid regurgitation velocity profile. Right Atrium The right atrium is normal in size. Left Atrium The left atrium is normal in size. Mitral Valve Structurally normal mitral valve without significant stenosis or prolapse. There is no mitral regurgitation. Aortic Valve Aortic valve is not well-visualized Tricuspid Valve Tricuspid valve not well visualized. Pulmonic Valve Pulmonic valve not well visualized. Pericardium Normal pericardium without effusion. Aorta Normal ascending aorta dimension. CONCLUSIONS Suboptimal poor quality of images 1-Normal left ventricular cavity size. Normal left ventricular systolic function. No regional wall motion abnormalities. Left ventricular ejection fraction is estimated at 60 %. Normal diastolic function. 2-No significant valve abnormalities. 3-There is no pericardial effusion. 4-Right atrial pressure is around 5 mm of mercury. 5-Aortic tricuspid and pulmonic valve are not well visualized 6-There are no prior echocardiogram studies to compare. Pietro Proctor MD (Electronically Signed) Final Date: 04 April 2020 17:43 S
--- NOTE | 2020-04-04 13:28 | US_ITS ---
WS: [id number] RIGHT UPPER QUADRANT ULTRASOUND HISTORY: evaluate gallbladder, persistent fevers, on peg tube feeds COMPARISON: None available. Liver: 15.3 cm in length. Normal size liver. No bile duct dilatation or mass. Gallbladder: Normally distended gallbladder. There is a small amount of sludge and a small stone pres ent. No pericholecystic fluid or gallbladder wall thickening. CBD: 0.3 cm Pancreas: Head and tail are not visualized. Body is negative. Right kidney: 9.8 cm in length. Normal size and echogenicity. No hydronephrosis or mass. Aorta and IVC: Unremarkable abdominal aorta and IVC. No ascites. US/US abdomen limited [id number] IMPRESSION: 1. Cholelithiasis and a small amount of sludge without evidence for gallbladde r wall thickening or pericholecystic fluid. 2. Negative RIGHT kidney.
[2020-04-04 14:07] LABS: COMPLEMENT, TOTAL (CH50) 59 U/mL (31-60)
[2020-04-04 14:37] LABS: COMPLEMENT COMPONENT C3C 94 mg/dL (83-193); COMPLEMENT COMPONENT C4C 41 mg/dL (15-57)
[2020-04-04 16:15] LABS: LAB Peripheral Smear Sent for Review
[2020-04-04 17:57] LABS: Glucose Point of Care 75 mg/dL (70-110)
--- NOTE | 2020-04-04 18:30 | PC.NURSE ---
SHIFT SUMMARY PATIENT HAS BEEN CALM MOST OF THE DAY. ONE TIME LATE THIS MORNING PATIENT BECAME MORE RESTLESS AND MOANING, BUT THIS DID NOT OCCUR LONG. PATIENT HAS HAD GOOD URINE OUTPUT. PATIENT HAD ONE BM, MORE CONSISTENCY THAN PREVIOUS. PATIENT IS AT A TUBE FEEDING RATE OF 30ML/HR AT THIS TIME. TOLERATING WELL WITH LESS THAN 5ML RESIDUAL AT EACH CHECK. PATIENT STARTED ON SEVERAL ANTIBIOTICS. VANCOMYCIN WAS GIVEN IN THE LEFT WRIST IV THIS AM BY THIS NURSE. NURSE THEN NOTICED A RASH FROM PATIENT'S WRIST TO ELBOW, BUT NOT ANYWHERE ELSE ON PATIENT'S BODY. VANCOMYCIN STOPPED AND DR. DA SILVA NOTIFIED. DR. DA SILVA ASKED THIS NURSE TO PROCEED WITH THE VANCOMYCIN IN ANOTHER IV SITE AND MONITOR CLOSELY. VANCOMYCIN TOLERATED WITHOUT DIFFICULTY AND RASH ON LEFT ARM DISAPPEARED OVER THE AFTERNOON. PATIENT DID NOT TOLERATE IV POTASSIUM, SO A DOSE OF LIQUID WAS GIVEN THROUGH PATIENT'S NIYA BUTTON. PATIENT HAS BEEN AFEBRILE THROUGHOUT THE DAY. THIS NURSE HAS SPOKEN WITH SISTER MECHELLE AND GRANDMOTHER THROUGHOUT THE DAY MULTIPLE TIMES AND ANSWERED ALL QUESTIONS AT THIS TIME. PATIENT JUST REPOSITIONED AND RESTING WELL.
--- NOTE | 2020-04-04 18:42 | PC.NURSE ---
NIYA BUTTON PATIENT'S NIYA BUTTON HAS BEEN ASYMPTOMATIC ALL DAY. NO DRAINAGE NOTED. FLUSHING WELL.
[2020-04-05] VITALS (7 sets, daily range): BP systolic 92–135; BP diastolic 23–82; PULSE 80–93; RESP 14–18; TEMP 36.5–37.4; O2SAT 95–98
[2020-04-05] MEDS: pantoprazole 40 mg SDV IVP (02:07)
[2020-04-05] MEDS: vancomycin 750 MG in sodium chloride 0.9% 250 ML 250 MG IV ×3 (02:15→18:10)
[2020-04-05 05:56] LABS: Basophils % 0.9 %; Eosinophils # 0.5 10^3/uL (0.0-0.8); Hematocrit 28.2 % (37.0-47.0); Hemoglobin 9.3 g/dL (11.5-15.3); Lymphocytes # 2.5 10^3/uL (0.8-4.8); Mean Corpuscular Hemoglobin 30.5 pg (28.0-34.0); Mean Corpuscular Volume 92.5 fL (81-99); Monocytes # 0.5 10^3/uL (0.2-0.9); Monocytes % 11.4 %; Neutrophils % 21.7 %; Nucleated Red Blood Cells % 0 %; Platelet Count 210 10^3/cmm (130-400); Red Blood Count 3.05 10^6/uL (4.1-5.3); Red Cell Distribution Width 12.7 % (12.1-15.1); White Blood Count 4.5 10^3/uL (4.0-10.0)
[2020-04-05 06:27] LABS: Alanine Aminotransferase 19 U/L (0-33); Albumin Level 3.2 g/dL (3.5-5.2); Alkaline Phosphatase 100 IU/L (35-105); Anion Gap 10.5 (5-19); Aspartate Amino Transferase 46 U/L (0-32); Blood Urea Nitrogen 3 mg/dL (6-20); Calcium 8.1 mg/dL (8.5-10.5); Carbon Dioxide 22 mmol/L (22-29); Chloride 106 mmol/L (98-107); Globulin 2.5 g/dL (1.3-4.6); Glomerular Filtration Rate 196.1 mL/min (90-130); Glucose 94 mg/dL (65-115); Magnesium 1.8 mg/dL (1.7-2.3); Osmolality Calculated 276 mOsm/kg (285-295); Phosphorus 1.3 mg/dL (2.5-4.5); Potassium 3.5 mmol/L (3.5-5.1); Sodium 135 mmol/L (136-145); Total Bilirubin 0.2 mg/dL (0.15-1.2); Total Protein 5.7 g/dL (6.6-8.7)
[2020-04-05] MEDS: levothyroxine 100 mcg Tablet PO (08:31)
[2020-04-05] MEDS: lamoTRIgine 100 mg Tablet 400 MG PO ×2 (08:32→18:12)
[2020-04-05] MEDS: CLONazepam 1 mg Tablet PO (08:33)
[2020-04-05 08:40] LABS: Coronavirus Lab Test PTC Negative
[2020-04-05] MEDS: ofloxacin 0.3% otic 5 mL Btl 5 DROP EAR-BOTH ×2 (08:44→18:38)
[2020-04-05 10:10] LABS: Vancomycin Trough 11.7 ug/mL (10-15)
--- NOTE | 2020-04-05 11:20 | CTR_ITS ---
PROCEDURE INFORMATION: Exam: CT Lumbar Spine Without Contrast Exam date and time: 04/05/2020 2:07 PM Age: 24 years old Clinical indication: Low back pain; Prior surgery; Surgery date: 6+ months; Surgery type: T-l spine rods, vns; Patient HX: PT w cerebral palsy - ? back pain - moans but does not follow commands; Additional info: Vertebral osteo? Disciits? TECHNIQUE: Imaging protocol: Computed tomography images of the lumbar spine without contrast. Radiation optimization: All CT scans at this facility use at least one of these dose optimization techniques: automated exposure control; mA and/or kV adjustment per patient size (includes targeted exams where dose is matched to clinical indication); or iterative reconstruction. COMPARISON: No relevant prior studies available. RADIATION DOSE METRICS: Total DLP (mGy-cm): FINDINGS: Vertebrae: Moderate lower thoracic dextroscoliosis. There has been posterior thoracic and lumbar fusion from T3 through L4. The L4 pedicle screws extend through the superior endplate of L4 . Lucency surrounds the left L4 pedicle screw and measures up to 6.1 cm along the posterosuperior aspect of the pedicle screw. There is cortical erosion of the left side of the L4 superior endplate. There are lumbar degenerative Schmorl's nodes. L1-L2: No significant disc protrusion. No severe spinal canal stenosis. No significant neural foraminal narrowing. L2-L3: No significant disc protrusion. No spinal canal stenosis. No neural foraminal narrowing. L3-L4: No significant disc protrusion. No severe spinal canal stenosis. No significant neural foraminal narrowing. L4-L5: Minimal disc bulge. No severe spinal canal stenosis. No significant neural foraminal narrowing. L5-S1: No significant disc protrusion. No severe spinal canal stenosis. No significant neural foraminal narrowing. Soft tissues: Unremarkable. CT/CT lumbar spine wo con* [id number] IMPRESSION: Lucency surrounds the left L4 pedicle screw with erosion of the left side of the L4 superior endplate. This can be seen with loosening and/or infection/osteomyelitis. Radiation Dose CTDIVOL = (mGy): DLP = 2022.45 (mGy-cm)
--- NOTE | 2020-04-05 11:20 | CTR_ITS ---
PROCEDURE INFORMATION: Exam: CT Cervical Spine Without Contrast Exam date and time: 04/05/2020 2:07 PM Age: 24 years old Clinical indication: Neck pain; Prior surgery; Surgery date: 6+ months; Surgery type: T-sp carmelo, vns; Patient HX: PT w cerebral palsy - ? back pain - moans but does not follow commands; Additional info: Vertebral osteo? Disciits? TECHNIQUE: Imaging protocol: Computed tomography images of the cervical spine without contrast. Radiation optimization: All CT scans at this facility use at least one of these dose optimization techniques: automated exposure control; mA and/or kV adjustment per patient size (includes targeted exams where dose is matched to clinical indication); or iterative reconstruction. COMPARISON: CT Cervical Spine wo* [id number] 04/15/2019 2:27 PM RADIATION DOSE METRICS: Total DLP (mGy-cm): 443.37 FINDINGS: Tubes, catheters and devices: There is a vagal nerve stimulator. Vertebrae: Normal variant non fusion of the C1 posterior arch. Compression deformity of the C7 vertebra is unchanged from the prior CT scan. There are mild chronic anterior compression deformities of the C2, C3, and C4 vertebra, also stable when compared to the prior study. C2-C3: Minimal disc bulge. No severe spinal canal stenosis. No significant neural foraminal narrowing. C3-C4: Mild to moderate disc bulge indents the anterior thecal sac, stable from the prior study. No severe spinal canal stenosis. No significant neural foraminal narrowing. C4-C5: Minimal disc bulge with possible superimposed midline and right paracentral protrusions. There is mild indentation of the anterior thecal sac. No severe spinal canal stenosis. No significant neural foraminal narrowing. C5-C6: No significant disc protrusion. No severe spinal canal stenosis. No significant neural foraminal narrowing. C6-C7: No significant disc protrusion. No severe spinal canal stenosis. No significant neural foraminal narrowing. C7-T1: No significant disc protrusion. No severe spinal canal stenosis. No significant neural foraminal narrowing. Soft tissues: Unremarkable. Lungs: Lung apices are normal. CT/CT cervical spin wo con* [id number] IMPRESSION: Chronic C7 compression deformity is unchanged from the prior CT scan. No acute cervical changes. Please note discitis/osteomyelitis is more optimally evaluated by MRI with gadolinium. Radiation Dose CTDIVOL = (mGy): DLP = 443.37 (mGy-cm)
--- NOTE | 2020-04-05 11:20 | CTR_ITS ---
PROCEDURE INFORMATION: Exam: CT Thoracic Spine Without Contrast Exam date and time: 04/05/2020 2:07 PM Age: 24 years old Clinical indication: Pain in thoracic spine; Without myelpathy or radiculopathy; Prior surgery; Surgery date: 6+ months; Surgery type: T-l spine rods, vns; Patient HX: PT w cerebral palsy - ? back pain - moans but does not follow commands; Additional info: Vertebral osteo? Disciits? TECHNIQUE: Imaging protocol: Computed tomography images of the thoracic spine without contrast. Radiation optimization: All CT scans at this facility use at least one of these dose optimization techniques: automated exposure control; mA and/or kV adjustment per patient size (includes targeted exams where dose is matched to clinical indication); or iterative reconstruction. COMPARISON: No relevant prior studies available. RADIATION DOSE METRICS: Total DLP (mGy-cm): 2004.81 FINDINGS: Vertebrae: [id number] midthoracic levoscoliosis. Patient is status post posterior fusion from T3 through the L4 levels. The T3 pedicle screws extend into the T2-T3 intervertebral disc space anteriorly. Multilevel thoracic degenerative Schmorl's nodes. Mild chronic anterior compression deformity of T1 and T5. Discs/Spinal canal/Neural foramina: No significant disc protrusion. No severe spinal canal stenosis. No significant neural foraminal narrowing. Soft tissues: Unremarkable. Lungs: Multifocal infiltrates are present in the right upper lobe. CT/CT thoracic spin wo con* [id number] IMPRESSION: There are mild chronic appearing anterior compression deformities of T1 and T5. Radiation Dose CTDIVOL = (mGy): DLP = 2004.81 (mGy-cm)
--- NOTE | 2020-04-05 12:35 | PM.PN ---
Subjective Subjective: Interval history: This morning patient was examined, she remains afebrile for the last 24 hours, 1 set of her blood cultures are gram-positive cocci, yesterday afternoon he attempt was made to do a lumbar puncture under radiographic guidance, however patient had severe scoliosis, and she was agitated during the attempt, unfortunately she was not able to have a lumbar puncture, this morning patient does moan, does not follow commands, Vitals/I&O/Wt Last Vital Signs Temp 97.7 F 04/05/20 11:51 Pulse 90 04/05/20 11:51 Resp 18 04/05/20 11:51 BP 110/75 04/05/20 11:51 Pulse Ox 96 04/05/20 11:51 04/04/20 04/05/20 04/05/20 22:59 06:59 14:59 Intake Total 530 / 945 350 / 1295 170 / 170 Output Total 1250 / 2450 300 / 2750 300 / 300 Balance -720 / -1505 50 / -1455 -130 / -130 Physical Exam Const: COMMON NORMALS: no acute distress HENMT: COMMON NORMALS: normocephalic HEAD & SCALP: normocephalic Neck/C-Spine: COMMON NORMALS: no JVD Resp: COMMON NORMALS: normal respiratory effort, No retractions, No use of accessory muscles and clear to auscultation bilaterally AUSCULTATION: clear to auscultation bilaterally Cardio: COMMON NORMALS: no JVD, regular rate, regular rhythm, S1 normal heart sound present and S2 normal heart sound present RATE: regular rate RHYTHM: regular rhythm HEART SOUNDS: S1 normal heart sound present and S2 normal heart sound present GI: COMMON NORMALS: Normal to inspection, nondistended, normoactive bowel sounds present, Soft to palpation, non-tender, No hepatosplenomegaly present, no masses and no bruits PALPATION: Yes Soft to palpation and Yes No hepatosplenomegaly present OTHER: PEG tube site looks clean and dry Extremity: COMMON NORMALS: capillary refill normal, no clubbing, cyanosis or edema, no calf tenderness and no pedal edema Urinary Catheter Management^: Sequeira: Cath Placed During This Visit: yes Reason for Continuing Indwelling Catheter: Accurate Measurement of Urinary Output in Critically Ill Patients Urinary Catheter Date of Insertion: 04/01/20 Urinary Catheter Time of Insertion: 22:27 Data : 04/05/20 05:43 04/05/20 05:43 Micro: Microbiology 04/03/20 14:30 Urine Culture - Final Urine Catheterized 04/03/20 13:34 Blood Culture - Preliminary Blood Gram positive cocci 04/03/20 14:12 Blood Culture - Preliminary Blood NEGATIVE TO DATE A&P Assessment and plan (1) Sepsis: Status: Acute Qualifiers: Sepsis type: sepsis due to unspecified organism Sepsis acute organ dysfunction status: unspecified Qualified Code(s): A41.9 - Sepsis, unspecified organism (2) Pylephlebitis: Status: Acute (3) Adynamic ileus: Status: Acute (4) Cerebral palsy: Status: Acute Qualifiers: Cerebral palsy type: unspecified type Qualified Code(s): G80.9 - Cerebral palsy, unspecified (5) Seizure disorder: Status: Acute (6) Recurrent fever: Status: Acute Additional A&P Information # Sepsis, persistent fevers -Etiology unclear at this point, possible GI source -Initial concerns for aspiration pneumonia, given CT angiogram findings, has been on Zosyn since admission, but continued to have fevers x2 Afebrile for the last 24 hours -Has some bronchiolitis in the right upper lobe seen on CT of the chest -Urine cultures so far unremarkable -2 sets of blood cultures gram-positive -Saturating on in the 90s on room air, map greater than 65 -Unable to perform lumbar puncture, I think without significant leukocytosis, meningitis is fairly unlikely, fevers have improved, does have a spinal cord stimulator though -Echocardiogram transthoracic does not show any large vegetations -Right upper quadrant ultrasound, no evidence of cholecystitis, does have biliary sludge PLAN: -Follow blood cultures, urine cultures, viral panel, inflammatory markers, chest x-ray -Continue vancomycin, expanded antibiotic coverage to Primaxin - Follow up on culture We will do CT of her spine to rule out discitis, vertebral osteomyelitis, epidural abscess- -PEG tube site looks clean and dry #Pylephlebitis, hepatic venous gas - D/w surgery, has some evidence of portal venous gas in the periphery of the liver - NG tube placed very minimal output, okay to discontinue -Discussed with general surgery okay to start PEG tube feeds, monitor residuals closely - No surgical intervention at this time # Seizure disorder - Phenobarbital level 35.5, has decreased to 23.3, phenobarbital has been stopped -Currently on Keppra 1500 twice daily, Lamictal 400 mg twice daily, clonazepam 1 mg p.o. 3 times daily, Banzel 1400 mg twice daily, phenobarbital - EEG ordered at admission - Remainder of AED continued - Seizure precautions #Hypothyroidism -TSH low at 0.02 -Decrease Synthroid 100 mcg po daily # Quadraplegic cerebral palsy - PT/OT on consult -Has a neurostimulator in place # Deep tissue injury of the right elbow -Continue offloading, continue to monitor CODE STATUS is full code per discussion with grandmother GI ppx - Protonix 40 mg IV daily DVT prophylaxis: Lovenox Initially in the ER there was concerns for grandkenny's behavior, jackelin was apparently removing patient's PEG tube, and putting it back in, and giving medication the PEG tube when she was told not to, she has been hotline by staff, Attestations Medical Necessity Statement*: Patient requires hospitalization for sepsis, recurrent fevers Coding Level of Care Code Acute 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
[2020-04-05 16:04] LABS: Levetiracetam Keppra 60.5 mcg/mL
[2020-04-05] MEDS: enoxaparin 40 mg/0.4 mL Syringe SUBCUT (23:23)
[2020-04-06] VITALS (7 sets, daily range): BP systolic 104–146; BP diastolic 62–85; PULSE 63–95; RESP 15–20; TEMP 36.6–37.2; O2SAT 93–99
[2020-04-06] MEDS: pantoprazole 40 mg SDV IVP (00:33)
[2020-04-06] MEDS: vancomycin 750 MG in sodium chloride 0.9% 250 ML 250 MG IV (02:46)
[2020-04-06 06:42] LABS: Alanine Aminotransferase 20 U/L (0-33); Albumin Level 2.9 g/dL (3.5-5.2); Alkaline Phosphatase 105 IU/L (35-105); Anion Gap 13.5 (5-19); Aspartate Amino Transferase 52 U/L (0-32); Blood Urea Nitrogen 5 mg/dL (6-20); Calcium 8.4 mg/dL (8.5-10.5); Carbon Dioxide 20 mmol/L (22-29); Chloride 100 mmol/L (98-107); Globulin 3.3 g/dL (1.3-4.6); Glomerular Filtration Rate 273.3 mL/min (90-130); Glucose 79 mg/dL (65-115); Osmolality Calculated 266 mOsm/kg (285-295); Phosphorus 2.9 mg/dL (2.5-4.5); Potassium 3.5 mmol/L (3.5-5.1); Sodium 130 mmol/L (136-145); Total Bilirubin 0.2 mg/dL (0.15-1.2); Total Protein 6.2 g/dL (6.6-8.7)
[2020-04-06 08:06] LABS: Basophils # 0.1 10^3/uL (0.0-0.1); Basophils % 1.1 %; Eosinophils # 0.4 10^3/uL (0.0-0.8); Eosinophils % 8.4 %; Hematocrit 30.8 % (37.0-47.0); Hemoglobin 10.1 g/dL (11.5-15.3); Lymphocytes # 2.7 10^3/uL (0.8-4.8); Lymphocytes % 61.3 %; Mean Corpuscular HGB Conc 32.8 g/dL (30.0-36.0); Mean Corpuscular Hemoglobin 30.6 pg (28.0-34.0); Mean Corpuscular Volume 93.3 fL (81-99); Mean Platelet Volume 10.8 fL (7.4-10.4); Monocytes # 0.5 10^3/uL (0.2-0.9); Nucleated Red Blood Cells % 0 %; Platelet Count 237 10^3/cmm (130-400); Red Cell Distribution Width 12.7 % (12.1-15.1); White Blood Count 4.4 10^3/uL (4.0-10.0)
[2020-04-06 08:23] LABS: Neutrophils # 0.75 10^3/uL (1.8-7.7)
[2020-04-06] MEDS: levoFLOXacin 750 mg Tablet PO (09:05)
[2020-04-06] MEDS: CLONazepam 1 mg Tablet PO ×3 (09:05→22:19)
[2020-04-06] MEDS: levothyroxine 100 mcg Tablet PO (09:06)
[2020-04-06] MEDS: lamoTRIgine 100 mg Tablet 400 MG PO ×2 (09:06→17:51)
--- NOTE | 2020-04-06 10:07 | PC.CHAP ---
Pastoral Care Encounter/Spiritual Assessment Type of Contact [] Declined concierge receptionist visit [] Patient/Family/Request visit [] Outpatient visit [] Follow-up visit [] Physician referral [] Code/Alert [X] Routine visit [X] Staff referral [] Actively dying [] Patient sleeping [] Family support [] [] Out of room [] Palliative care [] [] Receiving care in room [] Pre-surgical visit [] Trauma [] Long length of stay [] ICU visit [] Other: Relational/Emotional Strength [] Patient feels connected with others/family/visitors/staff [] Distress [] Loneliness/isolation [] Abandonment Spirituality of Patient [] Person of Opal [] Attends Zoroastrian of their Opal [] Believes in Prayer [] Reads Bible or Orthodox materials [] There are Spiritual issues to be addressed [employer] Sharpshooter Interventions [X] Prayer [] Active listening [] Non-anxious presence [] Spiritual/emotional support [] Crisis/trauma care [] Spiritual counseling [] Bereavement support [] Provided bereavement packet [] Provided Bible/devotional materials [] Provided toy/stuffed animal, coloring book to patient or family member [] Provided Communion [] Anointing/[place] [] Salvation [] Completed spiritual assessment [] Other: Impact on Illness or Injury [] Angry [] Fearful [] Anxious [] Often cries [] Exhaustion [] Unable to work [] Unable to attend orthodox [] Unable to walk/stand [] Unable to read [] Unable to drive [] Unable to eat/drink [] Unable to sleep [] Unable to be with family [] Patient intubated [] Other: Summary: Pt is nonverbal with severe intellectual deficits; underlying dx is cerebral palsy. I had attempted visit previously but when i later checked in with nurse, she mentioned that grandma had hoped that someone would pray over her. Therefore, I returned to the room and offered prayer. Either the cartoons she was watching or the energy from prayer prompted vocalizations, which was a anastasiia to hear. Time spent with patient: 5 mins
[2020-04-06] MEDS: amoxicillin-clav 875-125 mg Tablet 1 TAB PO ×2 (11:11→17:52)
[2020-04-06] MEDS: ciprofloxacin-dexameth Otic Susp 7.5 mL Btl 4 DROP EAR-LEFT ×2 (11:12→18:05)
[2020-04-06] MEDS: PHENobarbital 32.4 mg Tablet 64.8 MG PO ×2 (11:12→23:42)
[2020-04-06] MEDS: benzonatate 100 mg Capsule 200 MG PO (12:11)
--- NOTE | 2020-04-06 13:26 | P.PN_ITS ---
Subjective Subjective: Interval history: This morning patient was examined, she is much more awake, she is actually watching TV, smiling, moving all her extremities, much more interactive, much less stiff today, her left ear was bleeding, so I had the nurses wash it out, using an otoscope, I observed that the tympanic membrane is actually perforated, she has evidence of otitis externa without o titis media, she did have significant coughing fits after I did this, but the improved, she remains afebrile I had a discussion with patient's case with the infectious disease, at the L4 screw that was placed when she was 14, there is increased lucency, could be loosening of the screw versus osteomyelitis. I think that the likelihood of her having vertebral osteomyelitis is very low, her ESR is in the 50s, she remains afebrile, but we should give her the benefit of the doubt. So what I plan on doing is de-escalating her antibiotic to Levaquin, which will cover for her pneumonia, cover for GI sources, and monitor for the next 24 hours. If she has any fever or increased white count, inflammatory marker, then the suspicion of vertebral osteomyelitis will be high, and she will likely require PICC line placement and prolonged antibiotic for treatment. I just do not want to subjugate her to prolonged IV antibiotic treatment, PICC line treatment, if it is not needed, given her poor functional status and cerebral palsy. I discussed with the patient's grandmother, she voiced understanding, all questions answered, agreed to proceed. Vitals/I&O/Wt Last Vital Signs Temp 98.4 F 04/06/20 11:00 Pulse 93 04/06/20 11:00 Resp 16 04/06/20 11:00 BP 104/78 04/06/20 11:00 Pulse Ox 95 04/06/20 11:00 04/05/20 04/06/20 04/06/20 23:59 06:59 14:59 Intake Total Output Total 450 / 450 Balance -450 / -450 Physical Exam Narrative: EXAM NARRATIVE: Much more interactive today, she pulls away when I will examine her left ear, she is watching TV, smiling, moving all extremities Const: COMMON NORMALS: no acute distress HENMT: TYMPANIC MEMBRANE: TM abnormal TM laterality: left Details: perforation Details: with bloody discharge Neck/C-Spine: COMMON NORMALS: no JVD Resp: COMMON NORMALS: normal respiratory effort, No retractions, No use of accessory muscles and clear to auscultation bilaterally AUSCULTATION: clear to auscultation bilaterally Cardio: COMMON NORMALS: no JVD, regular rate, regular rhythm, S1 normal heart sound present and S2 normal heart sound present RATE: regular rate RHYTHM: regular rhythm HEART SOUNDS: S1 normal heart sound present and S2 normal heart sound present GI: COMMON NORMALS: Normal to inspection, nondistended, normoactive bowel sounds present, Soft to palpation, non-tender, No hepatosplenomegaly present, no masses and no bruits PALPATION: Yes Soft to palpation and Yes No hepatosplenomegaly present Extremity: COMMON NORMALS: capillary refill normal, no clubbing, cyanosis or edema, no calf tenderness and no pedal edema Urinary Catheter Management^: Sequeira: Cath Placed During This Visit: yes Reason for Continuing Indwelling Catheter: Accurate Measurement of Urinary Output in Critically Ill Patients Urinary Catheter Date of Insertion: 04/01/20 Urinary Catheter Time of Insertion: 22:27 Data : 04/06/20 07:23 04/06/20 05:57 Micro: Microbiology 04/03/20 13:34 Blood Culture - Final Blood Staphylococcus epidermidis 04/06/20 05:57 Blood Culture - Preliminary Blood SPECIMEN COLLECTED 04/06/20 03:26 Blood Culture - Preliminary Blood SPECIMEN COLLECTED A&P Assessment and plan (1) Sepsis: Status: Acute Qualifiers: Sepsis type: sepsis due to unspecified organism Sepsis acute organ dysfunction status: unspecified Qualified Code(s): A41.9 - Sepsis, unspecified organism (2) Pylephlebitis: Status: Acute (3) Adynamic ileus: Status: Acute (4) Cerebral palsy: Status: Acute Qualifiers: Cerebral palsy type: unspecified type Qualified Code(s): G80.9 - Cerebral palsy, unspecified (5) Seizure disorder: Status: Acute (6) Recurrent fever: Status: Acute (7) Perforated tympanic membrane: Status: Acute Additional A&P Information # Sepsis, persistent fevers -Etiology likely right upper lobe pneumonia, possible GI source -Initial concerns for aspiration pneumonia, given CT angiogram findings, had been on Zosyn since admission, but continued to have fevers x2, I broaden antibiotic coverage to vancomycin and Primaxin, afebrile since 04/04/2020 -Has some bronchiolitis in the right upper lobe seen on CT of the chest -Urine cultures so far unremarkable - 1 blood culture positive for staph epidermidis, likely contamination, repeat blood cultures negative so far -Saturating on in the 90s on room air, map greater than 65 -Unable to perform lumbar puncture, I think without significant leukocytosis, meningitis is fairly unlikely, fevers have improved, does have a spinal cord st imulator though -Echocardiogram transthoracic does not show any large vegetations -Right upper quadrant ultrasound, no evidence of cholecystitis, does have biliary sludge -CT of the lumbar spine shows lucency surrounding the left L4 pedicle screw with erosion of the left side of the left L4 superior endplate, this can be seen in loosening and/or infection osteomyelitis, ESR is 57, 1 blood culture did show staph epidermidis, repeat blood cultures negative PLAN: -I had a discussion with patient's case with the infectious disease, at the L4 screw that was placed when she was 14, there is increased lucency, could be loosening of the screw versus osteomyelitis. I think that the likelihood of her having vertebral osteomyelitis is very low, her ESR is in the 50s, she remains afebrile, but she has been on vancomycin and Primaxin for the last 2 days, nonetheless we should give her the benefit of the doubt. So what I plan on doing is de-escalating her antibiotic to Levaquin, which will cover for her pneumonia, cover for GI sources, and monitor for the next 24 hours. If she has any fever or increased white count, inflammatory marker, then the suspicion of vertebral osteomyelitis will be high, and she will likely require PICC line placement and prolonged antibiotic for treatment. I just do not want to subjugate her to prolonged IV antibiotic treatment, PICC line treatment, if it is not needed, given her poor functional status and cerebral palsy. I discussed with the patient's grandmother, she voiced understanding, all questions answered, agreed to proceed. -Also advised grandmother,That it might take time for for a osteomyelitis to profess itself, if she were to discharge tomorrow, then have have changes in her mentation again or recurrent fevers then we would have to treat her for it -Monitor for fevers, monitor white count, monitor ESR, CRP -Follow blood cultures -De-escalate to Levaquin -Has left ear otitis externa with otitis media, will change to Ciprodex eardrops, with Augmentin orally - Follow up on culture -PEG tube site looks clean and dry Left tympanic membrane is perforated, with otitis media, otitis externa -Continue Augmentin, change to Ciprodex -I am highly suspicious that she has some underlying Cholestoma, she is going to need to follow-up with Dr. Sampson as outpatient for further evaluation, as these lesions can be quite destructive #Pylephlebitis, hepatic venous gas - D/w surgery, has some evidence of portal venous gas in the periphery of the liver - NG tube placed very minimal output, okay to discontinue -Discussed with general surgery okay to start PEG tube feeds, monitor residuals closely - No surgical intervention at this time # Seizure disorder - Phenobarbital level 35.5, has decreased to 23.3, phenobarbital has been stopped -Currently on Keppra 1500 twice daily, Lamictal 400 mg twice daily, clonazepam 1 mg p.o. 3 times daily, Banzel 1400 mg twice daily, phenobarbital - EEG ordered at admission - Remainder of AED continued - Seizure precautions #Hypothyroidism -TSH low at 0.02 -Decrease Synthroid 100 mcg po daily # Quadraplegic cerebral palsy - PT/OT on consult -Has a neurostimulator in place # Deep tissue injury of the right elbow -Continue offloading, continue to monitor CODE STATUS is full code per discussion with grandmother GI ppx - Protonix 40 mg IV daily DVT prophylaxis: Lovenox Initially in the ER there was concerns for grandma's behavior, grandkenny was apparently removing patient's PEG tube, and putting it back in, and giving medication the PEG tube when she was told not to, she has been hotline by staff, Attestations Medical Necessity Statement*: Patient requires hospitalization for sepsis, fevers Coding Level of Care Code 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
--- NOTE | 2020-04-06 13:56 | DCPLANNER ---
IMM completed with pt's grandmother over the phone on 04/06/2020 @ 1120am.
[2020-04-06] MEDS: guaiFENesin-dextromethorphan UDC 10 mL PO (18:05)
[2020-04-06] MEDS: enoxaparin 40 mg/0.4 mL Syringe SUBCUT (23:42)
[2020-04-07] MEDS: pantoprazole 40 mg SDV IVP (00:20)
[2020-04-07 03:53] VITALS: BP 92/69; PULSE 85; RESP 17; TEMP 37.4; O2SAT 95
[2020-04-07 06:18] LABS: Basophils % 0.7 %; Eosinophils # 0.3 10^3/uL (0.0-0.8); Eosinophils % 6.4 %; Hematocrit 30.8 % (37.0-47.0); Hemoglobin 10.3 g/dL (11.5-15.3); Lymphocytes # 2.7 10^3/uL (0.8-4.8); Lymphocytes % 60.4 %; Mean Corpuscular HGB Conc 33.4 g/dL (30.0-36.0); Mean Corpuscular Hemoglobin 30.5 pg (28.0-34.0); Mean Corpuscular Volume 91.1 fL (81-99); Mean Platelet Volume 11.2 fL (7.4-10.4); Monocytes # 0.6 10^3/uL (0.2-0.9); Monocytes % 12.8 %; Neutrophils % 19.3 %; Nucleated Red Blood Cells % 0 %; Platelet Count 251 10^3/cmm (130-400); Red Blood Count 3.38 10^6/uL (4.1-5.3); Red Cell Distribution Width 12.4 % (12.1-15.1); White Blood Count 4.5 10^3/uL (4.0-10.0)
[2020-04-07 06:32] LABS: Neutrophils # 0.88 10^3/uL (1.8-7.7)
[2020-04-07 06:53] LABS: Procalcitonin 0.13 ng/mL (0-0.5)
[2020-04-07 06:55] LABS: Alanine Aminotransferase 24 U/L (0-33); Albumin Level 3.6 g/dL (3.5-5.2); Alkaline Phosphatase 117 IU/L (35-105); Blood Urea Nitrogen 5 mg/dL (6-20); C Reactive Protein 32.8 mg/L (0.0-4.9); Calcium 8.6 mg/dL (8.5-10.5); Carbon Dioxide 21 mmol/L (22-29); Chloride 90 mmol/L (98-107); Globulin 2.7 g/dL (1.3-4.6); Glomerular Filtration Rate 273.3 mL/min (90-130); Glucose 87 mg/dL (65-115); Magnesium 2.2 mg/dL (1.7-2.3); Osmolality Calculated 251 mOsm/kg (285-295); Phosphorus 3.5 mg/dL (2.5-4.5); Sodium 122 mmol/L (136-145); Total Bilirubin 0.2 mg/dL (0.15-1.2); Total Protein 6.3 g/dL (6.6-8.7)
[2020-04-07 07:09] LABS: Anion Gap 15.7 (5-19); Potassium 4.7 mmol/L (3.5-5.1)
[2020-04-07 07:10] LABS: Aspartate Amino Transferase 52 U/L (0-32)
[2020-04-07 08:00] VITALS: BP 105/74; PULSE 67; RESP 16; TEMP 36.7; O2SAT 98
--- NOTE | 2020-04-07 08:00 | PC.NURSE ---
Discussed with Dr Ibrahim discontinuing the sood catheter. Per Dr Ibrahim, discontinue sood catheter.
[2020-04-07 08:11] LABS: Erythrocyte Sedimentation Rate 49 mm/hr (0-15)
[2020-04-07] MEDS: CLONazepam 1 mg Tablet PO ×3 (10:04→21:58)
[2020-04-07] MEDS: amoxicillin-clav 875-125 mg Tablet 1 TAB PO ×2 (10:04→16:50)
[2020-04-07] MEDS: lamoTRIgine 100 mg Tablet 400 MG PO ×2 (10:04→16:50)
[2020-04-07] MEDS: levothyroxine 100 mcg Tablet PO (10:04)
[2020-04-07] MEDS: ciprofloxacin-dexameth Otic Susp 7.5 mL Btl 4 DROP EAR-LEFT ×2 (10:05→16:51)
[2020-04-07] MEDS: levoFLOXacin 750 mg Tablet PO (10:05)
[2020-04-07] MEDS: PHENobarbital 32.4 mg Tablet 64.8 MG PO (11:44)
[2020-04-07 11:56] VITALS: BP 92/63; PULSE 90; RESP 18; TEMP 36.6; O2SAT 99
[2020-04-07 13:53] LABS: ANA SCREEN, IFA NEGATIVE (NEGATIVE)
[2020-04-07] MEDS: guaiFENesin-dextromethorphan UDC 10 mL PO (14:15)
[2020-04-07 15:23] LABS: CENTROMERE B ANTIBODY <1.0 NEG AI (<1.0 NEG); JO-1 ANTIBODY <1.0 NEG AI (<1.0 NEG); RNP ANTIBODY <1.0 NEG AI (<1.0 NEG); SCL-70 ANTIBODY <1.0 NEG AI (<1.0 NEG); SJOGREN'S ANTIBODY (SS-A) <1.0 NEG AI (<1.0 NEG); SM ANTIBODY <1.0 NEG AI (<1.0 NEG); THYROID PEROXIDASE ANTIBODIES <1 IU/mL (<9)
[2020-04-07 15:38] VITALS: BP 97/69; PULSE 91; RESP 16; TEMP 37; O2SAT 98
[2020-04-07 20:00] VITALS: BP 91/65; PULSE 98; RESP 18; TEMP 37.1; O2SAT 93
--- NOTE | 2020-04-07 20:53 | P.PN_ITS ---
Subjective Subjective: Interval history: No new clinical events overnight No fever or chills Tolerating tube feeding. Noted ot have multiple bowel movements Vitals/I&O/Wt Last Vital Signs Temp 98.6 F 04/07/20 15:38 Pulse 91 04/07/20 15:38 Resp 16 04/07/20 15:38 BP 97/69 04/07/20 15:38 Pulse Ox 98 04/07/20 15:38 04/07/20 04/07/20 04/07/20 06:59 14:59 22:59 Output Total 550 / 1250 200 / 200 350 / 550 Balance -550 / 1216 -200 / -200 -350 / -550 Physical Exam Narrative: EXAM NARRATIVE: GENERAL: Awake, nonverbal at baseline, does not follow any commands. - NG in palce to LIS HEENT: Normocephalic, atraumatic, PERRL conjunctival congestion present bilaterally. [] CHEST: Clear to auscultation bilaterally anteriorly. [] CVS: S1, S2 normal. No murmur, rubs, gallops. [] ABDOMEN: Soft, distended, unable to assess for tenderness. Bowel sounds not heard. Leaking both biliary appearing fluid around PEG site which is noted in the epigastric region - unchanged NEUROVASCULAR: Bilateral contractures in lower extremity, does not move any extremity, does not follow commands. EXTREMITIES: No edema. [] Urinary Catheter Management^: Sequeira: Cath Placed During This Visit: yes, but has since been removed by the nurse Reason for Continuing Indwelling Catheter: Decision to DC Catheter Urinary Catheter Date of Insertion: 04/01/20 Urinary Catheter Time of Insertion: 22:27 Date Urinary Catheter Removed: 04/07/20 Time Urinary Catheter Discontinued: 16:40 Data : 04/08/20 05:06 04/08/20 05:06 Micro: Microbiology 04/06/20 05:57 Blood Culture - Preliminary Blood NEGATIVE TO DATE 04/06/20 03:26 Blood Culture - Preliminary Blood NEGATIVE TO DATE 04/01/20 15:45 Blood Culture - Final Blood NO GROWTH AFTER 5 DAYS 04/01/20 15:46 Blood Culture - Final Blood NO GROWTH AFTER 5 DAYS A&P Assessment and plan (1) Sepsis: Status: Acute Qualifiers: Sepsis acute organ dysfunction status: unspecified Sepsis type: sepsis due to unspecified organism Qualified Code(s): A41.9 - Sepsis, unspecified organism (2) Pylephlebitis: Status: Resolved (3) Adynamic ileus: Status: Resolved (4) Cerebral palsy: Status: Acute Qualifiers: Cerebral palsy type: unspecified type Qualified Code(s): G80.9 - Cerebral palsy, unspecified (5) Seizure disorder: Status: Acute (6) Recurrent fever: Status: Resolved (7) Perforated tympanic membrane: (8) Hyponatremia: Status: Acute Additional A&P Information # Sepsis, persistent fevers - etiology unclear - Continue IV zosyn - Blood culture 1/2 coagulase neg staph. Likley contamination - Plan to de-escalate abx to augment at discharge. Left tympanic membrane is perforated, with otitis media, otitis externa -Continue Augmentin, No noted on my exam -I am highly suspicious that she has some underlying Cholestoma, she is going to need to follow-up with Dr. Sampson as outpatient for further evaluation, as these lesions can be quite destructive #Pylephlebitis, hepatic venous gas - D/w surgery, has some evidence of portal venous gas in the periphery of the l iver - NG tube placed very minimal output, okay to discontinue -Discussed with general surgery okay to start PEG tube feeds, monitor residuals closely - No surgical intervention at this time # Seizure disorder - Phenobarbital level 35.5, has decreased to 23.3, phenobarbital has been stopped -Currently on Keppra 1500 twice daily, Lamictal 400 mg twice daily, clonazepam 1 mg p.o. 3 times daily, Banzel 1400 mg twice daily, phenobarbital - EEG ordered at admission - Remainder of AED continued - Seizure precautions #Hypothyroidism -TSH low at 0.02 -Decrease Synthroid 100 mcg po daily # Quadraplegic cerebral palsy - PT/OT on consult -Has a neurostimulator in place # Deep tissue injury of the right elbow -Continue offloading, continue to monitor CODE STATUS is full code per discussion with grandmother GI ppx - Protonix 40 mg IV daily DVT prophylaxis: Lovenox , Attestations Medical Necessity Statement*: Due to discharge planning and continuing IV abx will need further hospitalization Coding Level of Care Code 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
--- NOTE | 2020-04-07 21:03 | PC.NURSE ---
total bed change due to large bm
--- NOTE | 2020-04-07 22:26 | PC.NURSE ---
large amount of urine. soaked through two disposable pads
[2020-04-08] VITALS: BP 91/62; PULSE 81; RESP 16; TEMP 36.9; O2SAT 97
[2020-04-08] MEDS: enoxaparin 40 mg/0.4 mL Syringe SUBCUT (00:39)
[2020-04-08] MEDS: PHENobarbital 32.4 mg Tablet 64.8 MG PO ×2 (00:47→12:12)
[2020-04-08 04:00] VITALS: BP 72/44; PULSE 87; RESP 17; TEMP 36.6; O2SAT 96
[2020-04-08 06:18] LABS: Eosinophils # 0.2 10^3/uL (0.0-0.8); Eosinophils % 6.3 %; Hematocrit 35.2 % (37.0-47.0); Hemoglobin 11.4 g/dL (11.5-15.3); Lymphocytes # 2.2 10^3/uL (0.8-4.8); Lymphocytes % 56.7 %; Mean Corpuscular HGB Conc 32.4 g/dL (30.0-36.0); Mean Corpuscular Hemoglobin 30.3 pg (28.0-34.0); Mean Corpuscular Volume 93.6 fL (81-99); Mean Platelet Volume 10.9 fL (7.4-10.4); Monocytes # 0.5 10^3/uL (0.2-0.9); Monocytes % 13.6 %; Neutrophils % 21.6 %; Nucleated Red Blood Cells % 0 %; Platelet Count 290 10^3/cmm (130-400); Red Blood Count 3.76 10^6/uL (4.1-5.3); Red Cell Distribution Width 12.3 % (12.1-15.1); White Blood Count 3.8 10^3/uL (4.0-10.0)
[2020-04-08 07:09] LABS: Neutrophils # 0.82 10^3/uL (1.8-7.7)
--- NOTE | 2020-04-08 07:17 | PC.NURSE ---
notified Dr Ibrahim of Abs Neutrophils of 0.82
[2020-04-08 07:54] LABS: Albumin Level 3.4 g/dL (3.5-5.2); Alkaline Phosphatase 120 IU/L (35-105); Blood Urea Nitrogen 5 mg/dL (6-20); C Reactive Protein 30.5 mg/L (0.0-4.9); Calcium 9.1 mg/dL (8.5-10.5); Carbon Dioxide 16 mmol/L (22-29); Chloride 88 mmol/L (98-107); Globulin 3.8 g/dL (1.3-4.6); Glomerular Filtration Rate 273.3 mL/min (90-130); Glucose 89 mg/dL (65-115); Magnesium 2.2 mg/dL (1.7-2.3); Osmolality Calculated 249 mOsm/kg (285-295); Phosphorus 3.6 mg/dL (2.5-4.5); Sodium 121 mmol/L (136-145); Total Bilirubin 0.2 mg/dL (0.15-1.2); Total Protein 7.2 g/dL (6.6-8.7)
[2020-04-08 08:00] VITALS: BP 101/68; PULSE 93; RESP 17; TEMP 36.7; O2SAT 80
[2020-04-08 08:03] LABS: Alanine Aminotransferase 23 U/L (0-33); Anion Gap 21.7 (5-19); Aspartate Amino Transferase 49 U/L (0-32); Potassium 4.7 mmol/L (3.5-5.1)
[2020-04-08] MEDS: lamoTRIgine 100 mg Tablet 400 MG PO ×2 (09:40→17:49)
[2020-04-08] MEDS: ciprofloxacin-dexameth Otic Susp 7.5 mL Btl 4 DROP EAR-LEFT ×2 (09:40→17:49)
[2020-04-08] MEDS: levoFLOXacin 750 mg Tablet PO (09:40)
[2020-04-08] MEDS: amoxicillin-clav 875-125 mg Tablet 1 TAB PO ×2 (09:40→17:49)
[2020-04-08] MEDS: CLONazepam 1 mg Tablet PO ×2 (09:40→15:59)
[2020-04-08] MEDS: levothyroxine 100 mcg Tablet PO (09:40)
--- NOTE | 2020-04-08 10:15 | PC.SOCIAL ---
IMM Updated Page 2 of IMM updated with family by phone. Initialed, dated, and timed and placed back in chart. Copy provided to patient's bedside.
[2020-04-08 10:57] VITALS: BP 88/58; PULSE 93; RESP 18; TEMP 36.7; O2SAT 95
[2020-04-08 15:15] VITALS: BP 92/53; PULSE 80; RESP 20; TEMP 36.6; O2SAT 98
--- NOTE | 2020-04-08 19:17 | P.DS_ITS ---
Discharge Providers Date of Admission: 04/01/20 20:39 Date of Discharge: April 08, 2020 Attending Provider at Admission: Yolanda Yanez MD Attending Provider at Discharge: Fadumo Ibrahim Primary Care Provider: Cindy Leger APRN Diagnoses at Discharge Discharge Diagnosis (1) Sepsis: Status: Acute Qualifiers: Sepsis type: sepsis due to unspecified organism Sepsis acute organ dysfunction status: unspecified Qualified Code(s): A41.9 - Sepsis, unspecified organism (2) Pylephlebitis: Status: Resolved (3) Adynamic ileus: Status: Resolved (4) Cerebral palsy: Status: Acute Qualifiers: Cerebral palsy type: unspecified type Qualified Code(s): G80.9 - Cerebral palsy, unspecified (5) Seizure disorder: Status: Acute (6) Recurrent fever: Status: Resolved (7) Perforated tympanic membrane: (8) Hyponatremia: Status: Acute Reason for Visit Reason for Visit: AMS Hospital Course Hospital Course: 24 year old female with a past medical history of cerebral palsy, seizure disorder, status post PEG tube placement, hypothyroidism was brought to the ER today by her grandmother due to fever and lethargy. T-max here is noted to be 100.5 Fahrenheit. Lactate is elevated at 4. It is extremely hard to get a clear history from the grandmother. She is only able to state that patient has had some increased weakness, noted leaking around her PEG site and an increased incidence of upward gaze over the past 2 weeks. On March 28, per primary care provider's note, it appears patient was seen for chief complaints of chest congestion, increased thick white sputum and left ear bleeding. She was diagnosed with left sided otitis media at the time and started on treatment with azithromycin and ciprofloxacin eardrops. Unable to a certain any further sequence of events as grandmother is a poor historian. Patient herself is nonverbal. Imaging of the chest negative for any consolidation or PE. Abdomen pelvis CT showed hepatic portal venous gas and concern for gastric infarction due to noted submucosal gas along dependent portion of the gastric fundus and greater curvature. Also noted to have severe fecal impaction with constipation/obsti pation of the sigmoid colon. Markedly ectatic loops of small bowel with air- fluid levels without a clear transition zone thought to be related to marked adynamic ileus/reactive ileus. Labs in the ER noted for leukocytosis of 12.5, predominant neutrophilia, D-dimer 1.39, mild hyponatremia sodium 132, anion gap of 20.7, lactic acid of 4, negative troponin delta's, elevated phenobarbital level of 35.5, negative Covid antigen. Patient has been evaluated by Dr. Ambrose from general surgery, currently has an NGT in place to suction. This was discontinued on 04/05 during which time minimal output was noted. Tube feeding were resumed and continued. She was started on free h20 flushes at 150cc q6hr. In addition she was getting 150 cc flushes with medication. This lead to hyponatremia. At the time of discharge free h20 flushes were significatnly decreased. Repeat BMP outpatient was ordered. Intially also noted to be constipation which had also resolved. Additionally patient was empirically started on IV Zosyn. Blood cultures were taken on 04/01 which did not show any growth. C diff toxin was also checked and found to be negative. On 04/03 repeat blood cultures were taken which showed st aphylococcal epidermidis in 1/2 sets. This was felt to be a contamination. Blood cultures were again repeated on 04/06/2020 which did not show any growth at the time of discharge. Review blood cultures were drawn due to recurrent intermittent fevers. Extensive infectious workup was performed. Also started on vancomycin pharmacy to dose. Patient was continued on IV Zosyn throughout the hospitalization and transition to Augmentin at the time of discharge. Extensive infectious workup was performed. Lumbar puncture was attempted however unsuccessful. CT of cervical to thoracic and lumbar spine was performed however no clear evidence of vertebral osteomyelitis was noted. Echocardiogram was performed however no evidence of vegetations was seen. EF was preserved. Fevers had subsided on 04/04/2020. Leukocytosis on admission of 12.5 had resolved. Dueto negative culture no indication for continued IV antibiotics was warrranted. She was transitioned to PO augmentin to complete course at discharge. Due to elevated phenobarb levels medication was held. Repeat levels had decreased during which time dose was adjusted and phenobarb was resumed. In addition to this patient was continued on her other antiepileptics. Did not have seizure-like activity throughout hospitalization. Patient was stable for discharge to home with home care Physical Exam Narrative: EXAM NARRATIVE: GENERAL: Awake, nonverbal at baseline, does not follow any commands. HEENT: Normocephalic, atraumatic, PERRL conjunctival congestion present bilaterally. [] CHEST: Clear to auscultation bilaterally anteriorly. [] CVS: S1, S2 normal. No murmur, rubs, gallops. [] ABDOMEN: Soft, distended, Feeding tube stable and in place. NEUROVASCULAR: Bilateral contractures in lower extremity, does not move any extremity, does not follow commands. EXTREMITIES: No edema. Urinary Catheter Management^: Sequeira: Cath Placed During This Visit: yes, but has since been removed by the nurse Reason for Continuing Indwelling Catheter: Decision to DC Catheter Urinary Catheter Date of Insertion: 04/01/20 Urinary Catheter Time of Insertion: 22:27 Date Urinary Catheter Removed: 04/07/20 Time Urinary Catheter Discontinued: 16:40 Discharge Data Data Completed and Pending: Completed Studies During Hospitalization Category Date Time Status CT abdomen pelvis wo con 01064 Urge nt Cat Scan 04/01/20 18:[address] angio chest PE protcl [id number] Stat Cat Scan 04/01/20 17:[address] cervical spin wo con* [id number] Rout ine Cat Scan 04/05/20 11:[address] head wo con* 7 0450 Stat Cat Scan 04/01/20 17:[address] lumbar spine w o con* 85622 Routi ne Cat Scan 04/05/20 11:[address] thoracic spin wo con* 48038 Rout ine Cat Scan 04/05/20 11:20 Completed Fluoro guided lum bar puncture [FL g uided lumbarpunc d x* Exams 04/04/20 13:11 Completed [id number]] Routine XR chest 1V walter ble [id number] Routine Exams 04/03/20 11:55 Completed XR chest 1V walter ble [id number] Stat Exams 04/01/20 14:42 Completed XR chest 1V walter ble 35785 Stat Exams 04/01/20 21:08 Completed CV echo complete* 76317 Routine Ultrasound 04/04/20 13:28 [place] [id number] Routin e Ultrasound 04/03/20 11:55 Completed US abdomen limite d [id number] Routine Ultrasound 04/04/20 13:28 Completed Pending at discharge Category Date Time Status EEG electroenceph alogram Routine Exams 04/02/20 00:07 Ordered Blood Culture Sta t Lab 04/06/20 05:57 Results Respiratory Viral Panel PCR Routine Lab 04/08/20 11:00 Received Labs from last 24 hours 04/04/20 04/03/20 12:00 14:12 Anti-ds DNA IgG (C rith) Negative VZV IgG Antibody 1571.00 H Vitals: Last Vital Signs Temp 97.9 F 04/08/20 15:15 Pulse 80 04/08/20 15:15 Resp 20 H 04/08/20 15:15 BP 92/53 04/08/20 15:15 Pulse Ox 98 04/08/20 15:15 Discharge Plan Discharge Patient Disposition: Home Health Service Condition: Stable Prescriptions: New Levoxyl 100 mcg Tablet 100 mcg PO DAILY Qty: 30 RF: 0 phenobarbital 32.4 mg Tablet 64.8 mg PO Q12H 30 Days Qty: 120 RF: 0 amoxicillin-pot clavulanate 875-125 mg Tablet 1 tab PO BID Qty: 7 RF: 0 Continued ofloxacin 0.3 % drops 5 drop EAR-BOTH BID 7 Days Qty: 5 RF: 0 lamotrigine 200 mg tablet 400 mg PO BID RF: 0 clonazepam 1 mg tablet 1 mg PO TID RF: 0 triamcinolone acetonide 0.025 % cream See Rx Instructions .ROUTE .COMPLEX RF: 0 levetiracetam 100 mg/mL solution See Rx Instructions .ROUTE .COMPLEX RF: 0 Banzel 400 mg tablet 1,400 mg PO BID RF: 0 Discontinued azithromycin 200 mg/5 mL suspension for reconstitution See Rx Instructions PO .COMPLEX Qty: 37.5 RF: 0 phenobarbital 20 mg/5 mL (4 mg/mL) elixir See Rx Instructions .ROUTE .COMPLEX RF: 0 levothyroxine 125 mcg tablet 125 mcg PO DAILY RF: 0 Discharge Orders: Discharge Order (Routine); Ordered 04/08/20 Ordered By: Fadumo Ibrahim Other Ambulatory Orders: Complete Blood Count w/Man Dif (Routine) Timeframe: 1 Week Facility: [facility] - Location: Lab - Main Lab Ordered By: Fadumo Ibrahim Comprehensive Metabolic Panel (Routine) Timeframe: 1 Week Facility: [facility] - Location: Lab - Main Lab Ordered By: Fadumo Ibrahim Referrals: Cindy Leger APRN [Primary Care Provider] - 04/15/20 10:00 am Discharge Diet: Resume prior tube feeds Discharge Activity: Resume usual activity Patient Instructions: Phenobarbital (By mouth), Amoxicillin/Clavulanate Potassium (By mouth), Thyroid Supplement (By mouth), Hyponatremia, Ruptured Eardrum (GEN) Discharge Date/Time: 04/08/20 19:00 Discharge Attestations Time Spent in Discharge Care*: greater than 30 min Status at Discharge: Cognitive status at discharge: severely impaired cognition (At baseline however. ) , Functional status at discharge: bed bound Overall status at discharge: patient is back to baseline Quality Metrics Clinical Quality Measures During this hospital stay, did patient experience: None Coding Level of Care Code Acute Business Insurance Agent for Chg Fwd Diagnoses Sepsis A41.9 Sepsis type: sepsis due to unspecified organism Sepsis acute organ dysfunction status: unspecified Pylephlebitis K75.1 Adynamic ileus K56.0 Cerebral palsy G80.9 Cerebral palsy type: unspecified type Seizure disorder G40.909 Recurrent fever A68.9 Perforated tympanic membrane H72.90 Hyponatremia E87.1
[2020-04-09 07:03] LABS: DNA AB (DS) CRITHIDIA,IFA NEGATIVE (NEGATIVE)
[2020-04-11 21:28] LABS: Adenovirus Not Detected (Not Detected); Human Metapneumovirus Not Detected (Not Detected); Human Parainflu Virus 1 Not Detected (Not Detected); Human Parainflu Virus 2 Not Detected (Not Detected); Human Parainflu Virus 3 Not Detected (Not Detected); Human Rsv A Not Detected (Not Detected); Influenza A Not Detected (Not Detected); Influenza B Not Detected (Not Detected); Rhinovirus/Enterovirus Not Detected (Not Detected)
== END 2020-04-08 19:00 | disposition home health service (06) | DRG 871 ==
LOC: ER 18:28 → ICU 20:58 → MEDSURG 04-02 23:21
PROVIDERS: Emergency Medicine; Family Medicine; Admitting Provider Student in an Organized Health Care Education/Training Program; PCP Nurse Practitioner Family; Visit Provider Hospitalist
DX: A41.9 Sepsis, unspecified organism (principal); K75.1 Phlebitis of portal vein; J69.0 Pneumonitis due to inhalation of food and vomit; E87.1 Hypo-osmolality and hyponatremia; K56.0 Paralytic ileus; G80.8 Other cerebral palsy; G40.909 Epilepsy, unspecified, not intractable, without status epilepticus; K56.41 Fecal impaction; E03.9 Hypothyroidism, unspecified; H72.90 Unspecified perforation of tympanic membrane, unspecified ear
CPT/HCPCS: 12345; 36415; 36416; 51702; 62328; 70450; 71045; 71275; 72125; 72128; 72131; 74176; 76705; 80053; 80177; 80184; 80202; 81001; 82009; 82550; 82962; 83605; 83735; 84100; 84145; 84443; 84484; 85014; 85018; 85025; 85378; 85610; 85651; 85730; 86140; 86787; 87040; 87077; 87086; 87186; 87205; 87426; 87493; 87635; 90471; 90686; 93005; 93306; 93970; 96372; 96375; 97166; 99284; C9113; J0131; J0456; J0743; J1650; J1953; J1956; J2405; J2543; J3370; J3480; J7030; J7050; Q9967

== ENCOUNTER 2020-04-24 12:33 | Emergency (ER) | payer MEDICARE, MEDICAID, SELFPAY ==
[2020-04-24 12:34] VITALS: BP 90/69; PULSE 88; RESP 16; TEMP 36.4; O2SAT 97; BMI 282.0
[2020-04-24 13:02] VITALS: BP 108/72; O2SAT 97
--- NOTE | 2020-04-24 13:13 | W.ED.RECABL ---
HPI - Recheck/Abnormal Lab/Rx General: Chief Complaint: Recheck/Abnormal Lab/Rx Stated Complaint: abnormal labs Time Seen by Provider: 04/24/20 12:44 History of Present Illness: HPI narrative: Patient is a 25-year-old female that comes to the ED with abnormal labs. Patient has cerebral palsy and seizure disorder. She was hospitalized for an ileus. She was seen here for constipation on April 14 as well but ended up having a bowel movement while here in the ED. She was brought by her grandmother who is her power of civil rights attorney and field supervisor seed production. Grandmother says her nurse told her that patient needs to come get her labs rechecked due to low sodium. Grandmother says patient is having no other issues or complaints.. Bowel movements have been regular. Review of Systems Narrative: Patient comes in today to get sodium level checked. Const: Denies: fever(s), chills or fatigue Eyes: Denies: change in vision or eye discomfort ENMT: Denies: throat pain, odynophagia, nasal discharge or nasal congestion Card: Denies: chest pain, palpitations, edema, swelling of feet/ankles, dyspnea on exertion or orthopnea Resp: Denies: dyspnea, productive cough or non-productive cough GI: Denies: abdominal pain, nausea, vomiting, diarrhea, constipation or hematochezia : Denies: flank pain, dysuria or hematuria Musc: Denies: neck pain, back pain or extremity swelling Skin/Breast: Denies: rash or new lesions Neuro: Denies: headache(s), numbness in extremities or weakness in extremities PFS ED PFSH: Medical History Cerebral palsy Perforated tympanic membrane Surgical History S/P percutaneous endoscopic gastrostomy (PEG) tube placement Status post VNS (vagus nerve stimulator) placement ? Social History Smoking and tobacco status: unknown if ever smoked Physical Exam Narrative: EXAM NARRATIVE: Patient is a 25-year-old female that has cerebral palsy. Const: COMMON NORMALS: alert HENMT: COMMON NORMALS: normocephalic HEAD & SCALP: normocephalic MOUTH: Normal oral and palatal mucosa present THROAT: posterior oropharynx normal and uvula midline Neck/C-Spine: COMMON NORMALS: supple GENERAL: Yes normal visual inspection Resp: COMMON NORMALS: normal respiratory effort, No retractions, No use of accessory muscles and clear to auscultation bilaterally AUSCULTATION: clear to auscultation bilaterally Cardio: COMMON NORMALS: regular rate, regular rhythm, S1 normal heart sound present, S2 normal heart sound present, No gallops present (Cardio), No clicks present (Cardio), No murmurs present (Cardio) and Peripheral pulses 2+ throughout RATE: regular rate RHYTHM: regular rhythm HEART SOUNDS: S1 normal heart sound present and S2 normal heart sound present PERIPHERAL PULSES: Peripheral pulses 2+ throughout GI: COMMON NORMALS: Normal to inspection, nondistended, normoactive bowel sounds present, Soft to palpation, non-tender and no masses PALPATION: Yes Soft to palpation : COMMON NORMALS: Yes no CVA tenderness BLADDER/KIDNEY EXAM: Yes no CVA tenderness Back/Pelvis: COMMON NORMALS: no CVA tenderness Extremity: COMMON NORMALS: capillary refill normal and no pedal edema Neuro: COMMON NORMALS: moves all extremities SENSORIUM/ORIENTATION: Yes alert Skin: GENERAL SKIN EXAM: dry skin Course Vital Signs: Vital signs: Vital Signs Temperature 97.5 F L 04/24/20 12:34 Pulse Rate 84 04/24/20 14:46 Respiratory Rate 14 04/24/20 14:46 Blood Pressure 101/70 04/24/20 14:46 Pulse Oximetry 96 04/24/20 14:46 MDM - Recheck/Abnormal Lab/Rx MDM Narrative: Medical decision making narrative: Patient is a 25-year-old female with cerebral palsy that was brought in by her field supervisor seed production grandmother to get her sodium labs rechecked. Grandmother says patient has no other problems or concerns. She has been having normal bowel movements. Her sodium level today is 131, which is a big improvement from her last sodium of 121 on April 08. Patient was discharged and grandmother was told to have patient sodium rechecked in another 5 to 7 days. Return to ED precautions given. Patient's grandmother understood and agreed with plan I Lab Data: Attestation: I reviewed the patient's lab results. Labs: Lab Results 11/19/20 11/19/20 11/19/20 Range/Units 13:12 13:32 13:32 WBC 5.7 (4.0-10.0) 10^3/ uL RBC 3.78 L (4.1-5.3) 10^6/u L Hgb 11.4 L (11.5-15.3) g/dL Hct 38.4 (37.0-47.0) % MCV 101.6 H (81-99) fL MCH 30.2 (28.0-34.0) pg MCHC 29.7 L (30.0-36.0) g/dL RDW 13.3 (12.1-15.1) % Plt Count 326 (130-400) 10^3/c mm MPV 9.1 (7.4-10.4) fL Neut % (Auto) 39.8 % Lymph % (Auto) 43.8 % Lee % (Auto) 10.7 % Eos % (Auto) 1.8 % Baso % (Auto) 1.8 % Neut # (Auto) 2.28 (1.8-7.7) 10^3/u L Lymph # (Auto) 2.5 (0.8-4.8) 10^3/u L Lee # (Auto) 0.6 (0.2-0.9) 10^3/u L Eos # (Auto) 0.1 (0.0-0.8) 10^3/u L Baso # (Auto) 0.1 (0.0-0.1) 10^3/u L Nucleated RBC % (a uto) 0 % Nucleated RBCs # 0.0 /100WBC Sodium 131 L (136-145) mmol/L Potassium 4.6 (3.5-5.1) mmol/L Chloride 95 L (98-107) mmol/L Carbon Dioxide 24 (22-29) mmol/L Anion Gap 16.6 (5-19) BUN 8 (6-20) mg/dL Creatinine 0.4 L (0.5-0.9) mg/dL GFR Calculation 194.5 H (90-130) mL/min Glucose 81 (65-115) mg/dL Calculated Osmolal ity 269 L (285-295) mOsm/k g Calcium 8.7 (8.5-10.5) mg/dL Total Bilirubin 0.2 (0.15-1.2) mg/dL AST 28 (0-32) U/L ALT 13 (0-33) U/L Alkaline Phosphata se 175 H (35-105) IU/L Total Protein 6.8 (6.6-8.7) g/dL Albumin 4.0 (3.5-5.2) g/dL Globulin 2.8 (1.3-4.6) g/dL Urine Color Yellow (Yellow) Urine Appearance Hazy A (CLEAR) Urine pH 5 (5-7) Ur Specific Gravit y 1.020 (1.005-1.030) Urine Protein Neg (Negative) Urine Glucose (UA) Norm (Normal) Urine Ketones Negative (Negative) Urine Blood 2+ H (Negative) Urine Nitrate Negative (Negative) Urine Bilirubin Neg (Negative) Urine Urobilinogen Norm (Negative) mg/dL Ur Leukocyte Rafaela ase Negative (Negative) Urine RBC 5-10 H (0-2) /hpf Urine WBC None (0-5) /hpf Ur Squamous Epith Cells 0-4 H (0-5) /hpf Amorphous Sediment Not Reportable Urine Bacteria Trace (NONE) /hpf Discharge Plan Discharge Patient Disposition: Home Clinical Impression: Hyponatremia Condition: Stable Prescriptions: No Action ofloxacin 0.3 % drops 5 drop EAR-BOTH BID 7 Days Qty: 5 RF: 0 lamotrigine 200 mg tablet 400 mg PO BID RF: 0 clonazepam 1 mg tablet 1 mg PO TID RF: 0 triamcinolone acetonide 0.025 % cream See Rx Instructions .ROUTE .COMPLEX RF: 0 levetiracetam 100 mg/mL solution See Rx Instructions .ROUTE .COMPLEX RF: 0 Banzel 400 mg tablet 1,400 mg PO BID RF: 0 Levoxyl 100 mcg Tablet 100 mcg PO DAILY Qty: 30 RF: 0 phenobarbital 32.4 mg Tablet 64.8 mg PO Q12H 30 Days Qty: 120 RF: 0 amoxicillin-pot clavulanate 875-125 mg Tablet 1 tab PO BID Qty: 7 RF: 0 Discharge Orders: Discharge Order (Routine); Ordered 04/24/20 Ordered By: Gregorio Jauregui Referrals: Cindy Leger APRN [Primary Care Provider] - Discharge Diet: Regular Discharge Activity: Resume usual activity Patient Instructions: Hyponatremia (ED) Activity Restrictions/Additional Instructions: Follow-up with medical provider as directed in 5 to 7 days to have sodium level rechecked. Continue taking all home medications as previously prescribed. Return to the ER or your medical provider if condition worsens. Please read and understand discharge instructions. If any questions, please ask. Coding Level of Care Code ED Ski Instructor for Lobito Fwd Exam Comprehensive
[2020-04-24 13:46] LABS: Basophils # 0.1 10^3/uL (0.0-0.1); Basophils % 1.8 %; Eosinophils # 0.1 10^3/uL (0.0-0.8); Eosinophils % 1.8 %; Hematocrit 38.4 % (37.0-47.0); Hemoglobin 11.4 g/dL (11.5-15.3); Lymphocytes # 2.5 10^3/uL (0.8-4.8); Lymphocytes % 43.8 %; Mean Corpuscular HGB Conc 29.7 g/dL (30.0-36.0); Mean Corpuscular Hemoglobin 30.2 pg (28.0-34.0); Mean Corpuscular Volume 101.6 fL (81-99); Mean Platelet Volume 9.1 fL (7.4-10.4); Monocytes # 0.6 10^3/uL (0.2-0.9); Monocytes % 10.7 %; Neutrophils # 2.28 10^3/uL (1.8-7.7); Neutrophils % 39.8 %; Nucleated Red Blood Cells % 0 %; Platelet Count 326 10^3/cmm (130-400); Red Blood Count 3.78 10^6/uL (4.1-5.3); Red Cell Distribution Width 13.3 % (12.1-15.1); White Blood Count 5.7 10^3/uL (4.0-10.0)
[2020-04-24 14:02] LABS: Bilirubin Urine Neg (Negative); Blood Urine 2+ (Negative); Glucose Urine UA Norm (Normal); Ketones Urine Negative (Negative); Leukocyte Esterase Urine Negative (Negative); Nitrate Urine Negative (Negative); Protein Urine Neg (Negative); Urine Appearance Hazy (CLEAR); Urine Color Yellow (Yellow); Urobilinogen Urine Norm (Negative); pH Urine 5 (5-7)
[2020-04-24 14:04] LABS: Squamous Epithelial Cell Urine 0-4 /hpf (0-5)
[2020-04-24 14:05] LABS: Add Urine Culture? No; Bacteria Urine TRACE /hpf
[2020-04-24 14:06] LABS: Alanine Aminotransferase 13 U/L (0-33); Alkaline Phosphatase 175 IU/L (35-105); Blood Urea Nitrogen 8 mg/dL (6-20); Calcium 8.7 mg/dL (8.5-10.5); Carbon Dioxide 24 mmol/L (22-29); Chloride 95 mmol/L (98-107); Globulin 2.8 g/dL (1.3-4.6); Glomerular Filtration Rate 194.5 mL/min (90-130); Glucose 81 mg/dL (65-115); Osmolality Calculated 269 mOsm/kg (285-295); Sodium 131 mmol/L (136-145); Total Bilirubin 0.2 mg/dL (0.15-1.2); Total Protein 6.8 g/dL (6.6-8.7)
[2020-04-24 14:08] LABS: Anion Gap 16.6 (5-19); Aspartate Amino Transferase 28 U/L (0-32); Potassium 4.6 mmol/L (3.5-5.1)
[2020-04-24 14:46] VITALS: BP 101/70; PULSE 84; RESP 14; O2SAT 96
== END 2020-04-24 14:46 | disposition home or self-care (01) ==
PROVIDERS: Emergency Provider Physician Assistant; PCP Nurse Practitioner Family
DX: E87.1 Hypo-osmolality and hyponatremia (principal)
CPT/HCPCS: 12345; 36415; 51701; 80053; 81001; 85025; 99282

== ENCOUNTER → 2020-08-25 15:15 | Outpatient (BNVA) | payer MEDICARE, MEDICAID, SELFPAY | PROVIDERS: PCP Nurse Practitioner Family; Visit Provider Internal Medicine | DX: E23.0 Hypopituitarism (principal); E87.1 Hypo-osmolality and hyponatremia; G80.9 Cerebral palsy, unspecified | CPT/HCPCS: 99205 ==

== ENCOUNTER 2020-10-13 21:07 | Observation (INO) | payer MEDICARE, MEDICAID, SELFPAY ==
[2020-10-13 21:10] VITALS: BP 81/55; PULSE 96; RESP 14; O2SAT 94
--- NOTE | 2020-10-13 21:22 | XRR_ITS ---
PROCEDURE INFORMATION: Exam: XR Chest Exam date and time: 10/13/2020 9:29 PM Age: 25 years old Clinical indication: Other: Reduced breath sounds; Prior surgery TECHNIQUE: Imaging protocol: XR of the chest. Views: 1 view. COMPARISON: CR XR chest 1V portable [id number] 04/03/2020 12:08 PM FINDINGS: Lung volumes are low, limiting assessment. There appears to be some prominence of the bilateral perihilar markings, nonspecific, uncertain if due to crowding of markings from low lung volumes, infiltrates, edema/congestion, or a combination thereof. No significant obscuration of the lateral costophrenic angles is demonstrated. Visualized cardiac silhouette size appears within normal limits. Long metallic rods project over visualized thoracic spine. Stimulator device projects over the left chest. XR/XR chest 1V portable [id number] IMPRESSION: Lung volumes are low, limiting assessment. There appears to be some prominence of the bilateral perihilar markings, nonspecific, uncertain if due to crowding of markings from low lung volumes, infiltrates, edema/congestion, or a combination thereof.
--- NOTE | 2020-10-13 21:22 | CTR_ITS ---
PROCEDURE INFORMATION: Exam: CT Head Without Contrast Exam date and time: 10/13/2020 9:29 PM Age: 25 years old Clinical indication: Altered mental status/memory loss; Prior surgery; Additional info: Altered/reduced mental status TECHNIQUE: Imaging protocol: Computed tomography of the head without contrast. Radiation optimization: All CT scans at this facility use at least one of these dose optimization techniques: automated exposure control; mA and/or kV adjustment per patient size (includes targeted exams where dose is matched to clinical indication); or iterative reconstruction. ADDITIONAL STUDY INFORMATION: Total DLP (mGy-cm): 830.97 COMPARISON: CT head wo con* [id number] 04/01/2020 6:22 PM FINDINGS: Evaluation of the brain demonstrates no areas of abnormal density. There is mild cerebral cortical volume loss. Ventricles do not appear significantly dilated. No depressed calvarial fracture is demonstrated. Visualized paranasal sinuses and mastoid air cells demonstrate no significant opacification. CT/CT head wo con* [id number] IMPRESSION: No definite acute intracranial process is demonstrated. Radiation Dose CTDIVOL = (mGy): DLP = 830.97 (mGy-cm)
--- NOTE | 2020-10-13 21:27 | ECG_ITS ---
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 Measurements Intervals [place] Rate: 76 P: 46 OR: 163 QRS: 67 QRSD: 98 T: 266 QT: 401 QTc: 454 Interpretive Statements SINUS RHYTHM MODERATE T-WAVE ABNORMALITY, CONSIDER ANTEROLATERAL ISCHEMIA [-0.1+ mV T WAVE IN V3-V6] MODERATE T-WAVE ABNORMALITY, CONSIDER INFERIOR ISCHEMIA [-0.1+ mV T WAVE IN II/aVF] Compared to ECG 04/01/2020 22:10:12 Sinus tachycardia no longer present T-wave abnormality still present Possible ischemia still present Electronically Signed On 10-14-2020 9:19:48 CDT by Mariella Sun M.D. [email or web address]
[2020-10-13 22:07] LABS: ABG PCO2 45.9 mmHg (35-45); ABG PH Result 7.35 (7.35-7.45); Arterial Blood Gas Hematocrit 35.8 % (37-47); Base Excess ABG -0.3 mmol/L (-2.0-2.0); Blood Gas Allen Test Pos; Blood Gas Sample Site Radial, right; Blood Gas Sample Type Arterial; Carboxyhemoglobin 0.5 %THgb (0.4-20.1); HCO3 ABG 25.6 mmol/L (22-26); HGB O2 Sat 95.7 % (95-100); Methemoglobin 0.2 % (0.4-1.5); Oxygen Device ROOM AIR; PO2 ABG 83.7 mmHg (80.0-100.0); Total Hemoglobin 11.7 g/dL (12-16)
--- NOTE | 2020-10-13 22:34 | ED_ITS ---
HPI - Weakness General: Chief complaint: Weakness Stated complaint: LETHARGIC Time Seen by Provider: 10/13/20 21:11 History of Present Illness: HPI Narrative: The patient is a 25-year-old female with past medical history cerebral palsy comes to the ER from home by family. She is an aspiration risk. Family says they were afraid she was aspirating but the home suction machine battery was not charged. MD Complaint: generalized weakness Review of Systems General: Reports: ROS unobtainable due to medical condition PFSH ED PFSH: Medical History (Updated 10/14/20 @ 11:26 by Jair Hedrick MD) Cerebral palsy Hyponatremia Hypothyroidism Panhypopituitarism Perforated tympanic membrane Seizure disorder Surgical History S/P percutaneous endoscopic gastrostomy (PEG) tube placement Status post VNS (vagus nerve stimulator) placement ? Family History Other Diabetes Hyperlipidemia Social History Smoking and tobacco status: unknown if ever smoked Physical Exam Const: EXAM LIMITATIONS: altered mental status GENERAL APPEARANCE: lethargic and ill appearing ORIENTATION/CONSCIOUSNESS: Yes lethargic OTHER: chronic cerebral palsy. Contractures to limbs. Responds to painful stimuli HENMT: COMMON NORMALS: normocephalic, external ears normal and Normal external nose present HEAD & SCALP: normal to inspection and normocephalic NOSE: Normal external nose present EXTERNAL EAR: Yes external ears normal MOUTH: Normal oral and palatal mucosa present THROAT: posterior oropharynx normal Eye: COMMON NORMALS: Equal, round and reactive pupils present and EOMs intact bilaterally GENERAL EYE: appearance normal, both eyes and all related structures PUPIL: Yes Equal, round and reactive pupils present Neck/C-Spine: COMMON NORMALS: full ROM, no lymphadenopathy, no meningeal signs and no JVD GENERAL: Yes normal visual inspection Lymph: LYMPHATIC: no lymphadenopathy noted Chest: COMMONS NORMALS: normal inspection of the chest and normal palpation of entire chest wall Resp: COMMON NORMALS: normal respiratory effort, No retractions, No use of accessory muscles, clear to auscultation bilaterally and percussion normal EFFORT & INSPECTION: Yes able to speak in complete sentences AUSCULTATION: clear to auscultation bilaterally PERCUSSION: percussion normal Cardio: COMMON NORMALS: no JVD, regular rate, regular rhythm, S1 normal heart sound present, S2 normal heart sound present and Peripheral pulses 2+ throughout RATE: regular rate RHYTHM: regular rhythm HEART SOUNDS: S1 normal heart sound present and S2 normal heart sound present PERIPHERAL PULSES: Peripheral pulses 2+ throughout GI: COMMON NORMALS: Normal to inspection, nondistended, normoactive bowel sounds present, Soft to palpation, non-tender and no masses INSPECTION: Yes normal to inspection PALPATION: Yes Soft to palpation : COMMON NORMALS: Yes no CVA tenderness BLADDER/KIDNEY EXAM: Yes no CVA tenderness Back/Pelvis: COMMON NORMALS: no CVA tenderness, thoracic and lumbar spine normal to inspection, no thoracic nor lumbar tenderness and thoraco-lumbar ROM normal Extremity: COMMON NORMALS: capillary refill normal, no joint enlargement and no pedal edema NARRATIVE EXTREMITY EXAM: chronic limb contractures GENERAL: Yes normal exam except as noted Neuro: SENSORIUM/ORIENTATION: Yes lethargic MENINGEAL SIGNS: Yes no meningeal signs Skin: COMMON NORMALS: no rashes or lesions noted GENERAL SKIN EXAM: no rashes or lesions noted Course Vital Signs: Vital signs: Vital Signs Temperature 97.4 F L 10/14/20 08:00 Pulse Rate 87 10/14/20 08:00 Respiratory Rate 16 10/14/20 08:00 Blood Pressure 92/63 10/14/20 08:00 Pulse Oximetry 99 10/14/20 08:00 MDM - Weakness MDM Narrative: Medical decision making narrative: The patient is a 25-year-old female with cerebral palsy who is baseline nonverbal. Apparently she was less responsive at home and sent to the ED. Here she is responding to painful stimuli. Labs did show sodium of 126, mild white cells in the urine but other than that studies were mostly unremarkable. She was given IV fluids and ceft riaxone empirically after IV was established. Imaging mostly unremarkable. Likely dehydration. Discussed with Dr. Nance who accepts for observation Lab Data: Labs: Lab Results 10/13/20 10/13/20 10/13/20 Range/Units 21:50 22:41 22:41 WBC 4.9 (4.0-10.0) 10^3/ uL RBC 3.81 L (4.1-5.3) 10^6/u L Hgb 11.8 (11.5-15.3) g/dL Hct 38.6 (37.0-47.0) % MCV 101.3 H (81-99) fL MCH 31.0 (28.0-34.0) pg MCHC 30.6 (30.0-36.0) g/dL RDW 13.0 (12.1-15.1) % Plt Count 199 (130-400) 10^3/c mm MPV 11.2 H (7.4-10.4) fL Neut % (Auto) 42.6 % Lymph % (Auto) 45.3 % [place] % (Auto) 9.5 % Eos % (Auto) 1.2 % Baso % (Auto) 1.0 % Neut # (Auto) 2.10 (1.8-7.7) 10^3/u L Lymph # (Auto) 2.2 (0.8-4.8) 10^3/u L [place] # (Auto) 0.5 (0.2-0.9) 10^3/u L Eos # (Auto) 0.1 (0.0-0.8) 10^3/u L Baso # (Auto) 0.1 (0.0-0.1) 10^3/u L Nucleated RBC % (a uto) 0 % Nucleated RBCs # 0.0 /100WBC Specimen Type Arterial Sample Site Radial, right ABG pH 7.35 (7.35-7.45) ABG pCO2 45.9 H (35-45) mmHg ABG pO2 83.7 (80.0-100.0) mmH g ABG HCO3 25.6 (22-26) mmol/L ABG Base Excess -0.3 (-2.0-2.0) mmol/ L Suresh Test Pos Hematocrit 35.8 L (37-47) % Hgb O2 Saturation 95.7 (95-100) % Carboxyhemoglobin 0.5 (0.4-20.1) %THgb Methemoglobin 0.2 L (0.4-1.5) % Total Hemoglobin 11.7 L (12-16) g/dL O2 Delivery Device Room air FiO2 21.0 % Mixer Diamond Powder ID [id number] Sodium 125 L (136-145) mmol/L Potassium 3.6 (3.5-5.1) mmol/L Chloride 94 L (98-107) mmol/L Carbon Dioxide 19 L (22-29) mmol/L Anion Gap 15.6 (5-19) BUN 10 (6-20) mg/dL Creatinine 0.4 L (0.5-0.9) mg/dL GFR Calculation 194.5 H (90-130) mL/min Glucose 89 (65-115) mg/dL Calculated Osmolal ity 259 L (285-295) mOsm/k g Lactate (0.5-2.2) mmol/L Calcium 8.5 (8.5-10.5) mg/dL Total Bilirubin 0.2 (0.15-1.2) mg/dL AST 36 H (0-32) U/L ALT 18 (0-33) U/L Alkaline Phosphata se 181 H (35-105) IU/L Creatine Kinase 369 H* (26-192) U/L NT-Pro-B Natriuret Pep 374 H (0-125) pg/mL Total Protein 7.3 (6.6-8.7) g/dL Albumin 3.9 (3.5-5.2) g/dL Globulin 3.4 (1.3-4.6) g/dL TSH (0.27-4.20) uIU/ mL Prolactin (4.8-23.3) ng/mL Urine Color (Yellow) Urine Appearance (CLEAR) Urine pH (5-7) Ur Specific Gravit y (1.005-1.030) Urine Protein (Negative) Urine Glucose (UA) (Normal) Urine Ketones (Negative) Urine Blood (Negative) Urine Nitrate (Negative) Urine Bilirubin (Negative) Urine Urobilinogen (Negative) mg/dL Ur Leukocyte Rafaela ase (Negative) Urine RBC (0-2) /hpf Urine WBC (0-5) /hpf Ur Squamous Epith Cells (0-5) /hpf Amorphous Sediment Urine Bacteria (NONE) /hpf Phenobarbital (10-30) ug/mL 10/13/20 10/13/20 10/13/20 Range/Units 22:41 23:07 23:25 WBC (4.0-10.0) 10^3/ uL RBC (4.1-5.3) 10^6/u L Hgb (11.5-15.3) g/dL Hct (37.0-47.0) % MCV (81-99) fL MCH (28.0-34.0) pg MCHC (30.0-36.0) g/dL RDW (12.1-15.1) % Plt Count (130-400) 10^3/c mm MPV (7.4-10.4) fL Neut % (Auto) % Lymph % (Auto) % [place] % (Auto) % Eos % (Auto) % Baso % (Auto) % Neut # (Auto) (1.8-7.7) 10^3/u L Lymph # (Auto) (0.8-4.8) 10^3/u L [place] # (Auto) (0.2-0.9) 10^3/u L Eos # (Auto) (0.0-0.8) 10^3/u L Baso # (Auto) (0.0-0.1) 10^3/u L Nucleated RBC % (a uto) % Nucleated RBCs # /100WBC Specimen Type Sample Site ABG pH (7.35-7.45) ABG pCO2 (35-45) mmHg ABG pO2 (80.0-100.0) mmH g ABG HCO3 (22-26) mmol/L ABG Base Excess (-2.0-2.0) mmol/ L Suresh Test Hematocrit (37-47) % Hgb O2 Saturation (95-100) % Carboxyhemoglobin (0.4-20.1) %THgb Methemoglobin (0.4-1.5) % Total Hemoglobin (12-16) g/dL O2 Delivery Device FiO2 % Mixer Diamond Powder ID Sodium (136-145) mmol/L Potassium (3.5-5.1) mmol/L Chloride (98-107) mmol/L Carbon Dioxide (22-29) mmol/L Anion Gap (5-19) BUN (6-20) mg/dL Creatinine (0.5-0.9) mg/dL GFR Calculation (90-130) mL/min Glucose (65-115) mg/dL Calculated Osmolal ity (285-295) mOsm/k g Lactate 2.9 H (0.5-2.2) mmol/L Calcium (8.5-10.5) mg/dL Total Bilirubin (0.15-1.2) mg/dL AST (0-32) U/L ALT (0-33) U/L Alkaline Phosphata se (35-105) IU/L Creatine Kinase (26-192) U/L NT-Pro-B Natriuret Pep (0-125) pg/mL Total Protein (6.6-8.7) g/dL Albumin (3.5-5.2) g/dL Globulin (1.3-4.6) g/dL TSH (0.27-4.20) uIU/ mL Prolactin 25.38 H (4.8-23.3) ng/mL Urine Color Yellow (Yellow) Urine Appearance Clear (CLEAR) Urine pH 7 (5-7) Ur Specific Gravit y 1.000 L (1.005-1.030) Urine Protein Neg (Negative) Urine Glucose (UA) Norm (Normal) Urine Ketones Negative (Negative) Urine Blood 2+ H (Negative) Urine Nitrate Negative (Negative) Urine Bilirubin Neg (Negative) Urine Urobilinogen Norm (Negative) mg/dL Ur Leukocyte Rafaela ase Trace H (Negative) Urine RBC 0-4 H (0-2) /hpf Urine WBC 5-10 H (0-5) /hpf Ur Squamous Epith Cells 0-4 H (0-5) /hpf Amorphous Sediment Not Reportable Urine Bacteria 2+ H (NONE) /hpf Phenobarbital (10-30) ug/mL 10/13/20 10/14/20 Range/Units 23:25 00:01 WBC (4.0-10.0) 10^3/ uL RBC (4.1-5.3) 10^6/u L Hgb (11.5-15.3) g/dL Hct (37.0-47.0) % MCV (81-99) fL MCH (28.0-34.0) pg MCHC (30.0-36.0) g/dL RDW (12.1-15.1) % Plt Count (130-400) 10^3/c mm MPV (7.4-10.4) fL Neut % (Auto) % Lymph % (Auto) % [place] % (Auto) % Eos % (Auto) % Baso % (Auto) % Neut # (Auto) (1.8-7.7) 10^3/u L Lymph # (Auto) (0.8-4.8) 10^3/u L [place] # (Auto) (0.2-0.9) 10^3/u L Eos # (Auto) (0.0-0.8) 10^3/u L Baso # (Auto) (0.0-0.1) 10^3/u L Nucleated RBC % (a uto) % Nucleated RBCs # /100WBC Specimen Type Sample Site ABG pH (7.35-7.45) ABG pCO2 (35-45) mmHg ABG pO2 (80.0-100.0) mmH g ABG HCO3 (22-26) mmol/L ABG Base Excess (-2.0-2.0) mmol/ L Suresh Test Hematocrit (37-47) % Hgb O2 Saturation (95-100) % Carboxyhemoglobin (0.4-20.1) %THgb Methemoglobin (0.4-1.5) % Total Hemoglobin (12-16) g/dL O2 Delivery Device FiO2 % Mixer Diamond Powder ID Sodium (136-145) mmol/L Potassium (3.5-5.1) mmol/L Chloride (98-107) mmol/L Carbon Dioxide (22-29) mmol/L Anion Gap (5-19) BUN (6-20) mg/dL Creatinine (0.5-0.9) mg/dL GFR Calculation (90-130) mL/min Glucose (65-115) mg/dL Calculated Osmolal ity (285-295) mOsm/k g Lactate (0.5-2.2) mmol/L Calcium (8.5-10.5) mg/dL Total Bilirubin (0.15-1.2) mg/dL AST (0-32) U/L ALT (0-33) U/L Alkaline Phosphata se (35-105) IU/L Creatine Kinase (26-192) U/L NT-Pro-B Natriuret Pep (0-125) pg/mL Total Protein (6.6-8.7) g/dL Albumin (3.5-5.2) g/dL Globulin (1.3-4.6) g/dL TSH 0.75 (0.27-4.20) uIU/ mL Prolactin (4.8-23.3) ng/mL Urine Color (Yellow) Urine Appearance (CLEAR) Urine pH (5-7) Ur Specific Gravit y (1.005-1.030) Urine Protein (Negative) Urine Glucose (UA) (Normal) Urine Ketones (Negative) Urine Blood (Negative) Urine Nitrate (Negative) Urine Bilirubin (Negative) Urine Urobilinogen (Negative) mg/dL Ur Leukocyte Rafaela ase (Negative) Urine RBC (0-2) /hpf Urine WBC (0-5) /hpf Ur Squamous Epith Cells (0-5) /hpf Amorphous Sediment Urine Bacteria (NONE) /hpf Phenobarbital 22.2 (10-30) ug/mL Discharge Plan Discharge Patient Disposition: Placed in Observation Admit Provider: Pietro Nance Clinical Impression: Cerebral palsy, Dehydration, Acute hyponatremia Coding Level of Care Code ED Filler Sifter Helper for Chg Fwd Exam Comprehensive
[2020-10-13 22:44] VITALS: BP 81/55; PULSE 74; RESP 17; O2SAT 99
[2020-10-13 22:46] LABS: Basophils # 0.1 10^3/uL (0.0-0.1); Eosinophils # 0.1 10^3/uL (0.0-0.8); Eosinophils % 1.2 %; Hematocrit 38.6 % (37.0-47.0); Hemoglobin 11.8 g/dL (11.5-15.3); Lymphocytes # 2.2 10^3/uL (0.8-4.8); Lymphocytes % 45.3 %; Mean Corpuscular HGB Conc 30.6 g/dL (30.0-36.0); Mean Corpuscular Volume 101.3 fL (81-99); Mean Platelet Volume 11.2 fL (7.4-10.4); Monocytes # 0.5 10^3/uL (0.2-0.9); Monocytes % 9.5 %; Neutrophils % 42.6 %; Nucleated Red Blood Cells % 0 %; Platelet Count 199 10^3/cmm (130-400); Red Blood Count 3.81 10^6/uL (4.1-5.3); White Blood Count 4.9 10^3/uL (4.0-10.0)
[2020-10-13] MEDS: cefTRIAXone 1,000 MG in sodium chloride 0.9% (plus) 50 ML 100 MG IV (22:55)
[2020-10-13] MEDS: sodium chloride 0.9% 1,000 ML 999 ML IV (22:55)
[2020-10-13 23:13] LABS: Alanine Aminotransferase 18 U/L (0-33); Albumin Level 3.9 g/dL (3.5-5.2); Alkaline Phosphatase 181 IU/L (35-105); Aspartate Amino Transferase 36 U/L (0-32); Blood Urea Nitrogen 10 mg/dL (6-20); Calcium 8.5 mg/dL (8.5-10.5); Carbon Dioxide 19 mmol/L (22-29); Chloride 94 mmol/L (98-107); Globulin 3.4 g/dL (1.3-4.6); Glomerular Filtration Rate 194.5 mL/min (90-130); Glucose 89 mg/dL (65-115); NT Pro B Type Natriuretic Pept 374 pg/mL (0-125); Osmolality Calculated 259 mOsm/kg (285-295); Sodium 125 mmol/L (136-145); Total Bilirubin 0.2 mg/dL (0.15-1.2); Total Protein 7.3 g/dL (6.6-8.7)
[2020-10-13 23:17] LABS: Anion Gap 15.6 (5-19); Creatine Phosphokinase 369 U/L (26-192); Potassium 3.6 mmol/L (3.5-5.1)
[2020-10-13 23:33] LABS: Add Urine Microscopic? YES; Bilirubin Urine Neg (Negative); Blood Urine 2+ (Negative); Glucose Urine UA Norm (Normal); Ketones Urine Negative (Negative); Leukocyte Esterase Urine Trace (Negative); Nitrate Urine Negative (Negative); Protein Urine Neg (Negative); Urine Appearance Clear (CLEAR); Urine Color Yellow (Yellow); Urobilinogen Urine Norm (Negative); pH Urine 7 (5-7)
[2020-10-13 23:34] LABS: Add Urine Culture? Yes; Bacteria Urine 2+ /hpf; RBC Urine 0-4 /hpf (0-2); Squamous Epithelial Cell Urine 0-4 /hpf (0-5)
[2020-10-13 23:46] LABS: Lactate (Lactic Acid level) 2.9 mmol/L (0.5-2.2)
--- NOTE | 2020-10-13 23:57 | PM.HP ---
Providers/Chief Complaint Primary Care Provider: Cindy Leger APRN Chief Complaint: LETHARGIC History of Present Illness Jennyfer Bliss is a 25 year old female history of cerebral palsy, seizure disorder, status post PEG tube placement, hypothyroidism, bedbound, spastic quadriplegia, was brought in by her grandmother because of decreased alertness. Patient is nonverbal, but would show spontaneous head and eye movement at baseline, she gets feeding via PEG tube, her grandmother was concerned because she was not showing any kind of movement today at home which she attributed to possible aspiration as the suction machine was not charged properly. In the ER she was requiring noxious stimuli for eye opening her GCS was 8, she was given ceftriaxone and was started on normal saline, diagnosis in the ER revealed hyponatremia which seems to be chronic, UA unremarkable, CT chest abdomen pelvis is pending, she is afebrile no active signs of sepsis, there is no skin breakdown, no active signs of pressure ulcers. I requested TSH and prolactin level, requested antiepileptic drug level. Please note last year she had diagnosis of ileus, cultures were negative, she was hyponatremic, free water flushes were initiated at 150 cc every 6 hours. EKG without ischemic or infarct changes. At the time of my evaluation she was getting normal saline at 75 cc/h, she was oscillating her head, her eyes were open, when I adjusted her pillow she kind of tucked herself in the pillow. Nurse did not notice any skin rash, pressure injury ulcer, Sequeira catheter draining clear yellow urine, Sequeira catheter was placed in the ER Review of Systems General: Reports: ROS unobtainable due to medical condition (Nonverbal, cerebral palsy) Medications/Allergies Home Medications Medication Instructions Recorded Confirmed Last Taken Type ofloxacin 0.3 % ear drops 5 drop EAR-BOTH BID 7 Days #5 ml 03/28/20 04/01/20 Unknown Rx Banzel 1,400 mg PO BID 04/01/20 08/25/20 Unknown History clonazepam 1 mg PO TID 04/01/20 08/25/20 Unknown History lamotrigine 400 mg PO BID 04/01/20 08/25/20 Unknown History levetiracetam See Rx Instructions .ROUTE .COMPLEX 04/01/20 08/25/20 04/01/20 07:00 History triamcinolone acetonide See Rx Instructions .ROUTE .COMPLEX 04/01/20 04/01/20 Unknown History amoxicillin-pot clavulanate 1 tab PO BID #7 tab 04/08/20 Unknown Rx levothyroxine [Levoxyl] 100 mcg PO DAILY #30 tab 04/08/20 08/25/20 Unknown Rx hydrocortisone 10 mg tablet 10 mg PO BID tab 08/25/20 08/25/20 Unknown History phenobarbital 60 mg tablet 60 mg PO BID PRN 08/25/20 08/25/20 Unknown History Allergies Allergy/AdvReac Type Severity Reaction Status Date / Time diphenhydramine Allergy ADR-Seizure Verified 10/13/20 21:27 [From Benadryl] PFSH Acute PFSH: Medical History (Updated 10/14/20 @ 02:23 by Pietro Nance MD) Cerebral palsy Hyponatremia Hypothyroidism Panhypopituitarism Perforated tympanic membrane Seizure disorder Surgical History S/P percutaneous endoscopic gastrostomy (PEG) tube placement Status post VNS (vagus nerve stimulator) placement ? Family History Other Diabetes Hyperlipidemia Social History Smoking and tobacco status: unknown if ever smoked Vitals/I&O/Wt Last Vital Signs Pulse 74 10/13/20 22:44 Resp 17 10/13/20 22:44 BP 81/55 10/13/20 22:44 Pulse Ox 99 10/13/20 22:44 Physical Exam Narrative: EXAM NARRATIVE: Young female who is moving her head, spontaneous opening of her eyes, not able to make eye contact a reciprocate to verbal commands No skin rash, diaper rash, pressure injury ulcers Pale complexion and dehydrated Abdomen soft with active bowel sounds Spastic quadriplegia Bilateral breath sounds diminished, her breathing is not labored Mild conjunctival hyperemia of the left eye Sequeira catheter draining clear yellow urine No joint swelling Urinary Catheter Management^: Sequeira: Cath Placed During This Visit: yes Urinary Catheter Date of Insertion: 10/13/20 Urinary Catheter Time of Insertion: 23:00 Data : 10/13/20 22:41 10/13/20 22:41 Micro: Microbiology 10/13/20 23:26 Blood Culture - Preliminary Blood SPECIMEN COLLECTED 10/13/20 23:25 Blood Culture - Preliminary Blood SPECIMEN COLLECTED A&P Assessment and plan (1) Dehydration: Status: Acute (2) Chronic hyponatremia: Status: Acute (3) Breakthrough seizure: Status: Acute Additional A&P Information Altered mental status This seems secondary to a breakthrough seizure episode considering high prolactin level I am requesting antiepileptic drug level No signs of sepsis she is afebrile no leukocytosis Has worsening of underlying chronic hyponatremia, clinically she is dehydrated Currently on normal saline at 75 cc/h, will resume tube feeding in the morning Her baseline sodium fluctuates between 122-1 35, current sodium 125, with hypokalemia and mild acidosis Lactic acidemia without active signs of sepsis, most likely related to dehydration She does carry diagnosis of panhypopituitarism for which she takes steroids and levothyroxine, will check TSH continue steroids, currently her blood pressure is stable I would not add a stress dose steroids at this time We will follow up with CT chest abdomen pelvis, suspicion for aspiration pneumonitis EKG sinus rhythm without ischemic or infarctive changes UA unremarkable General nursing care with changing her position every 2 hours Will resume her tube feeding after CT abdomen results, Full code DVT prophylaxis Lovenox Attestations Medical Necessity Statement*: Anticipating discharge in less than 48 hours, she will probably going back home with home health services, family is taking care of her at home Time Spent in Patient Care: (>than 50% of time spent in counselling and/or direct pt care on unit). 40mins Coding Level of Care Code Acute Family Court Registrar for [place] Fwd Diagnoses Dehydration E86.0 Chronic hyponatremia E87.1 Breakthrough seizure G40.919
[2020-10-14] VITALS (8 sets, daily range): BP systolic 87–99; BP diastolic 56–67; PULSE 75–94; RESP 14–20; TEMP 36.3–36.6; O2SAT 96–100
[2020-10-14 00:47] LABS: Prolactin 25.38 ng/mL (4.8-23.3)
--- NOTE | 2020-10-14 02:09 | CTR_ITS ---
PROCEDURE INFORMATION: Exam: CT Chest Without Contrast; Diagnostic Exam date and time: 10/14/2020 3:25 AM Age: 25 years old Clinical indication: Abdominal pain; Generalized; Chest pain; Additional info: Aspiration and AMS TECHNIQUE: Imaging protocol: Diagnostic computed tomography of the chest without contrast. Radiation optimization: All CT scans at this facility use at least one of these dose optimization techniques: automated exposure control; mA and/or kV adjustment per patient size (includes targeted exams where dose is matched to clinical indication); or iterative reconstruction. COMPARISON: CT angio chest PE protcl [id number] 04/01/2020 6:26 PM RADIATION DOSE METRICS: Total DLP (mGy-cm): 1878.36 FINDINGS: Lungs: Unremarkable. No consolidation. No masses. Pleural spaces: Unremarkable. No pneumothorax. No pleural effusion. Heart: Unremarkable. No cardiomegaly. No pericardial effusion. Aorta: Unremarkable. No aortic aneurysm. Lymph nodes: Unremarkable. No enlarged lymph nodes. Bones/joints: [id number] S shaped scoliosis is present. Thoracolumbar fusion hardware from T3 to L4 is again seen. Unchanged mild anterior wedge compression fracture deformities of C7, T1 and T5. Soft tissues: Unremarkable. IMPRESSION: No acute pathology in the chest. No evidence of aspiration pneumonia, as clinically questioned. PROCEDURE INFORMATION: Exam: CT Abdomen And Pelvis Without Contrast Exam date and time: 10/14/2020 3:25 AM Age: 25 years old Clinical indication: Abdominal pain; Generalized; Chest pain; Additional info: Aspiration and AMS TECHNIQUE: Imaging protocol: Computed tomography of the abdomen and pelvis without contrast. Radiation optimization: All CT scans at this facility use at least one of these dose optimization techniques: automated exposure control; mA and/or kV adjustment per patient size (includes targeted exams where dose is matched to clinical indication); or iterative reconstruction. COMPARISON: CT angio chest PE protcl [id number] 04/01/2020 6:26 PM RADIATION DOSE METRICS: Total DLP (mGy-cm): 1878.36 FINDINGS: Tubes, catheters and devices: Gastrostomy tube is in satisfactory position. Liver: Normal. No mass. Gallbladder and bile ducts: Single gallstone noted. No pericholecystic inflammatory changes to suggest cholecystitis. No intra or extrahepatic biliary ductal dilatation seen. Pancreas: Normal. No ductal dilation. Spleen: Normal. No splenomegaly. Adrenal glands: Normal. No mass. Kidneys and ureters: Normal. No hydronephrosis. Stomach and bowel: Surgical clips are again noted at the level of the GE junction. Appendix: No evidence of appendicitis. Intraperitoneal space: Unremarkable. No free air. No significant fluid collection. Vasculature: Unremarkable. No abdominal aortic aneurysm. Lymph nodes: Unremarkable. No enlarged lymph nodes. Urinary bladder: The urinary bladder is decompressed with a Sequeira catheter in place. Reproductive: The uterus is absent/atrophic. Bones/joints: [id number] S shaped scoliosis is present. Thoracolumbar fusion hardware from T3-L4 is again seen. Soft tissues: Unremarkable. CT/CT chest abd pel wo con IMPRESSION: No evidence of acute intra-abdominal or intrapelvic pathology. Radiation Dose CTDIVOL = (mGy): DLP = 1878.36~1878.36 (mGy-cm)
[2020-10-14 02:54] LABS: Thyroid Stimulating Hormone 0.75 uIU/mL (0.27-4.20)
[2020-10-14] MEDS: sodium chloride 0.9% 1,000 ML 75 ML IV ×2 (04:05→16:01)
[2020-10-14] MEDS: enoxaparin 40 mg/0.4 mL Syringe SUBCUT (04:06)
[2020-10-14 08:08] LABS: Lactate (Lactic Acid level) 2.2 mmol/L (0.5-2.2)
[2020-10-14 09:35] LABS: Anion Gap 12.1 (5-19); Blood Urea Nitrogen 5 mg/dL (6-20); Carbon Dioxide 21 mmol/L (22-29); Chloride 97 mmol/L (98-107); Creatine Phosphokinase 315 U/L (26-192); Glomerular Filtration Rate 271.1 mL/min (90-130); Glucose 68 mg/dL (65-115); Magnesium 1.9 mg/dL (1.7-2.3); Osmolality Calculated 258 mOsm/kg (285-295); Potassium 4.1 mmol/L (3.5-5.1); Sodium 126 mmol/L (136-145)
--- NOTE | 2020-10-14 11:04 | PC.NURSE ---
policy writer typist spoke with Dr Moreno, per Dr Moreno ok to give PO meds in PEG when family brings tube attachment.
[2020-10-14] MEDS: lamoTRIgine 100 mg Tablet 400 MG PO ×2 (12:18→17:59)
[2020-10-14] MEDS: levothyroxine 100 mcg Tablet PO (12:18)
[2020-10-14] MEDS: hydrocortisone 10 mg Tablet PO ×2 (12:18→17:59)
--- NOTE | 2020-10-14 12:30 | PC.CHAP ---
Pastoral Care Encounter/Spiritual Assessment Type of Contact [] Declined high school industrial arts teacher visit [] Patient/Family/Request visit [] Outpatient visit [] Follow-up visit [] Physician referral [] Code/Alert [x] Routine visit [] Staff referral [] Actively dying [x] Patient sleeping [] Family support [] [] Out of room [] Palliative care [] [] Receiving care in room [] Pre-surgical visit [] Trauma [] Long length of stay [] ICU visit [] Other: Relational/Emotional Strength [] Patient feels connected with others/family/visitors/staff [] Distress [] Loneliness/isolation [] Abandonment Spirituality of Patient [] Person of Opal [] Attends Cheondoism of their Opal [] Believes in Prayer [] Reads Bible or Hinduism materials [] There are Spiritual issues to be addressed Scenic Arts Supervisor Interventions [] Prayer [] Active listening [] Non-anxious presence [] Spiritual/emotional support [] Crisis/trauma care [] Spiritual counseling [] Bereavement support [] Provided bereavement packet [] Provided Bible/devotional materials [] Provided toy/stuffed animal, coloring book to patient or family member [] Provided Communion [] Anointing/[place] [] Salvation [] Completed spiritual assessment [] Other: Impact on Illness or Injury [] Angry [] Fearful [] Anxious [] Often cries [] Exhaustion [] Unable to work [] Unable to attend rastafarian [] Unable to walk/stand [] Unable to read [] Unable to drive [] Unable to eat/drink [] Unable to sleep [] Unable to be with family [] Patient intubated [] Other: Summary Time spent with patient
--- NOTE | 2020-10-14 13:32 | PC.NURSE ---
Administered 240ml ensure plus and 100ml water through PEG tube as instructed by Dr Moreno.
[2020-10-14 15:50] LABS: Sodium 125 mmol/L (136-145)
--- NOTE | 2020-10-14 16:48 | PM.PN ---
Subjective Subjective: Interval history: She is awake, alert, occasionally makes eye contact. Shaking/nodding her head randomly, not answering questions or following commands. Occasional mild vocalization. Vitals/I&O/Wt Last Vital Signs Temp 97.5 F L 10/14/20 11:37 Pulse 90 10/14/20 11:37 Resp 14 10/14/20 11:37 BP 90/58 10/14/20 11:37 Pulse Ox 97 10/14/20 11:37 10/14/20 10/14/20 10/14/20 06:59 14:59 22:59 Intake Total 1165 / 1165 340 / 340 895 / 1235 Output Total 550 / 550 300 / 300 Balance 615 / 615 40 / 40 895 / 935 Weight last 48 hrs Weight 58.151 kg Physical Exam Const: COMMON NORMALS: no acute distress and alert GENERAL APPEARANCE: comfortable; not cooperative ORIENTATION/CONSCIOUSNESS: Yes awake HENMT: COMMON NORMALS: oropharynx normal Neck/C-Spine: COMMON NORMALS: no JVD Resp: COMMON NORMALS: normal respiratory effort and clear to auscultation bilaterally AUSCULTATION: clear to auscultation bilaterally Cardio: COMMON NORMALS: no JVD, regular rhythm, S1 normal heart sound present, S2 normal heart sound present and No murmurs present (Cardio) RHYTHM: regular rhythm HEART SOUNDS: S1 normal heart sound present and S2 normal heart sound present GI: COMMON NORMALS: Normal to inspection, nondistended, normoactive bowel sounds present, Soft to palpation and non-tender PALPATION: Yes Soft to palpation OTHER: Clean appearing PEG tube is capped. Extremity: COMMON NORMALS: no joint enlargement OTHER: Upper and lower extremity contractures. Neuro: SENSORIUM/ORIENTATION: Yes alert Skin: COMMON NORMALS: no rashes or lesions noted GENERAL SKIN EXAM: no rashes or lesions noted Urinary Catheter Management^: Sequeira: Cath Placed During This Visit: yes, but has since been removed by the nurse Reason for Continuing Indwelling Catheter: Decision to DC Catheter Urinary Catheter Date of Insertion: 10/13/20 Urinary Catheter Time of Insertion: 23:00 Date Urinary Catheter Removed: 10/14/20 Time Urinary Catheter Discontinued: 10:45 Data : 10/13/20 22:41 10/14/20 14:05 Micro: Microbiology 10/13/20 23:26 Blood Culture - Preliminary Blood SPECIMEN COLLECTED 10/13/20 23:25 Blood Culture - Preliminary Blood SPECIMEN COLLECTED A&P Assessment and plan (1) Chronic hyponatremia: AlthoughWorsening of chronic hyponatremia. Possibly acute on chronic hyponatremia, did not significantly improve with sodium chloride infusion. Mildly improved to 126 this morning, but again down to 125 this afternoon. DC NS for now. Discussed with her aunt additional options. For now we will add sodium chloride tablets, recheck sodium tonight and in the morning. Will observe additional night in the hospital given hyponatremia is worse than her usual. Normally appears to be closer to around 130s. It may be that she is receiving too much in terms of water flushes at home. And states she is getting 2.5 cups with each feeding, 4 times a day. Status: Acute (2) Dehydration: Received IV hydration Status: Acute (3) Breakthrough seizure: Phenobarbital level normal. Lamotrigine level pending. Keppra dose will be increased to 1750 twice daily. Continue benzoyl. Status: Acute Additional A&P Information Acute encephalopathy suspected secondary to breakthrough seizure, currently has resolved. Microscopic pyuria: Follow-up urine culture. For now antibiotics not continued unless showing significant bacterial growth. Attestations Medical Necessity Statement*: Continue hospitalization for assessment and treatment of worsening of chronic hyponatremia, possibly acute on chronic down to 125. Coding Level of Care Code Acute Manager [employer] for [employer] Diagnoses Chronic hyponatremia E87.1 Dehydration E86.0 Breakthrough seizure G40.919
[2020-10-14 19:32] LABS: Sodium 128 mmol/L (136-145)
[2020-10-14 22:00] LABS: Sodium 132 mmol/L (136-145)
[2020-10-15] VITALS: BP 88/64; PULSE 88; RESP 18; TEMP 36.6; O2SAT 96
--- NOTE | 2020-10-15 04:46 | PC.NURSE ---
Went into patients room at 04:00am, to take vitals. Patient became combative when i put blood pressure cuff on left upper arm. patient try to swing her arms, couldnt get blood pressure.
[2020-10-15 07:52] LABS: Basophils # 0.1 10^3/uL (0.0-0.1); Eosinophils # 0.1 10^3/uL (0.0-0.8); Hematocrit 33.3 % (37.0-47.0); Hemoglobin 11.3 g/dL (11.5-15.3); Lymphocytes # 3.3 10^3/uL (0.8-4.8); Lymphocytes % 55.2 %; Mean Corpuscular HGB Conc 33.9 g/dL (30.0-36.0); Mean Corpuscular Hemoglobin 31.3 pg (28.0-34.0); Mean Corpuscular Volume 92.2 fL (81-99); Mean Platelet Volume 11.3 fL (7.4-10.4); Monocytes # 0.8 10^3/uL (0.2-0.9); Monocytes % 13.2 %; Neutrophils # 1.78 10^3/uL (1.8-7.7); Neutrophils % 29.4 %; Nucleated Red Blood Cells % 0 %; Platelet Count 220 10^3/cmm (130-400); Red Blood Count 3.61 10^6/uL (4.1-5.3); Red Cell Distribution Width 13.2 % (12.1-15.1); White Blood Count 6.1 10^3/uL (4.0-10.0)
[2020-10-15 08:00] VITALS: BP 140/78; PULSE 88; RESP 18; TEMP 37.1; O2SAT 94
[2020-10-15 08:11] LABS: Alanine Aminotransferase 19 U/L (0-33); Albumin Level 4.1 g/dL (3.5-5.2); Alkaline Phosphatase 182 IU/L (35-105); Blood Urea Nitrogen 6 mg/dL (6-20); Calcium 8.5 mg/dL (8.5-10.5); Carbon Dioxide 22 mmol/L (22-29); Chloride 101 mmol/L (98-107); Globulin 2.8 g/dL (1.3-4.6); Glomerular Filtration Rate 194.5 mL/min (90-130); Glucose 79 mg/dL (65-115); Osmolality Calculated 275 mOsm/kg (285-295); Sodium 134 mmol/L (136-145); Total Bilirubin 0.2 mg/dL (0.15-1.2); Total Protein 6.9 g/dL (6.6-8.7)
[2020-10-15 08:16] LABS: Anion Gap 15.3 (5-19); Aspartate Amino Transferase 39 U/L (0-32); Potassium 4.3 mmol/L (3.5-5.1)
[2020-10-15] MEDS: lamoTRIgine 100 mg Tablet 400 MG PO (09:01)
[2020-10-15] MEDS: hydrocortisone 10 mg Tablet PO (09:02)
[2020-10-15] MEDS: levothyroxine 100 mcg Tablet PO (09:02)
--- NOTE | 2020-10-15 11:43 | PC.NURSE ---
tube feedin We dont have the same tube feedings that pt takes at home so we are giving her ensure one container 8 oz then 150 ml free water flush. Patient tolerating it well. This was done at 1055.
[2020-10-15 12:00] VITALS: BP 97/65; PULSE 85; RESP 18; TEMP 36.9; O2SAT 100
--- NOTE | 2020-10-15 12:50 | PC.NUTR ---
Tube feeding recommendations per MD request: Home TF reported as Nutren 1.0, QID, with 2.5 cups (600 mL) H2O flushes per feeding. Provides 1000 kcal , 40 g protein, and 3244 mL H2O. Recommend to consider either increased total TF volume, or increased caloric density (such as Nutren 1.5) for home tube feeding to better meet estimated needs. Also recommend reduction in flushes. See options below. 1) Nutren 1.0, 6 cans per day, with 100 ml H2O flush per feeding, to provide 1500 kcal, 60 g protein, and 1866 mL H2O. Fluids to be adjusted per MD recommendation. OR 2) Nutren 1.5, 4 cans per day, with 240 ml H2O flush per feeding, to provide 1500 kcal, 68 g protein, 1724 mL H2O. Fluids to be adjusted per MD recommendation. Recommend monitor for TF tolerance and weight change. See RD assessment for further details.
--- NOTE | 2020-10-15 13:27 | P.DS_ITS ---
Discharge Providers Date of Admission: 10/14/20 00:32 Date of Discharge: October 15, 2020 Attending Provider at Admission: Pietro Nance MD Attending Provider at Discharge: Stone Moreno Primary Care Provider: Cindy Leger APRN Diagnoses at Discharge Discharge Diagnosis (1) Chronic hyponatremia: Status: Acute (2) Dehydration: Status: Acute (3) Breakthrough seizure: Status: Acute Reason for Visit Reason for Visit: LETHARGIC Hospital Course Hospital Course 25-year-old lady with cerebral palsy, spastic quadriplegia, requiring total assistance, PEG tube feeding, chronic hyponatremia, hypothyroidism, panhypopituitarism following with endocrinology, seizure disorder per her and following with Dr. Land at neurology clinic, treated with phenobarbital, lamotrigine, Keppra, was brought in for evaluation due to finding of decreased responsiveness, as well as noted to have some regurgitation, and not acting like her usual self. In ER noted requiring noxious stimuli to wake up. CT head showed no acute intracranial process. Noted dehydrated, received IV fluid bolus, and was continued on normal saline infusion, with noted hyponatremia sodium 125, previously fluctuating between 122-135. She was afebrile, without leukocytosis. No tachycardia, tachypnea or other signs of sepsis. She was assessed by CT chest abdomen pelvis due to regurgitation and consideration of possible intra-abdominal process or aspiration pneumonia, although neither was noted with unremarkable CT studies. She was told to have breakthrough seizure responsible for symptoms with also noted elevated prolactin at 25.38. TSH was checked and was normal. Her phenobarbital level was checked and is normal. Lamotrigine level requested and pending. Her Keppra dose is increased to 1750 twice daily. Her mental status improved, and returned to baseline. She is awake, not answering questions or following commands, nodding her head, occasionally minimal vocalization, looking around. Blood pressures have been on the soft side, but appears are soft usually. She has had no profound decrease, acute adrenal insufficiency was thought unlikely. Blood pressure today appears closer to her baseline at 97/65. Sequeira catheter which was placed in ER is removed. She appears to be growing gram-negative rods in urine, and so was started on cefdinir at discharge. As discussed with her and, ID and sensitivities may take some time, and antibiotic may need to be changed with final results available. Please follow-up on these. Her hyponatremia, likely acute has improved, with sodium returning to 132 last night and 134 this morning. Not entirely clear reason for hyponatremia but may have been transient acute hyponatremia following breakthrough seizure. Otherwise evaluating her home tube feeds regimen, she may also be getting too much in terms of water flushes. She has been on Nutren 1.0 4 times daily with 2-1/2 cups of water with each feeding. She was assessed by RD. At this time recommendation is to adjust/increase caloric intake. For now was discussed with her and will change tube feeds to Nutren 1.54 cans/day, with 240 mL water flushes with each feeding. Please reassess sodium at next visit. Continue to reassess nutritional needs. Physical Exam Const: COMMON NORMALS: no acute distress and alert GENERAL APPEARANCE: comfortable; not cooperative ORIENTATION/CONSCIOUSNESS: Yes awake HENMT: COMMON NORMALS: oropharynx normal Neck/C-Spine: COMMON NORMALS: no JVD Resp: COMMON NORMALS: normal respiratory effort and clear to auscultation bilaterally AUSCULTATION: clear to auscultation bilaterally Cardio: COMMON NORMALS: no JVD, regular rhythm, S1 normal heart sound present, S2 normal heart sound present and No murmurs present (Cardio) RHYTHM: regular rhythm HEART SOUNDS: S1 normal heart sound present and S2 normal heart sound present GI: COMMON NORMALS: Normal to inspection, nondistended, normoactive bowel sounds present, Soft to palpation and non-tender PALPATION: Yes Soft to palpation OTHER: Clean appearing PEG tube is capped. Extremity: COMMON NORMALS: no joint enlargement OTHER: Upper and lower extremity contractures. Neuro: SENSORIUM/ORIENTATION: Yes alert Skin: COMMON NORMALS: no rashes or lesions noted GENERAL SKIN EXAM: no rashes or lesions noted Urinary Catheter Management^: Sequeira: Cath Placed During This Visit: yes, but has since been removed by the nurse Reason for Continuing Indwelling Catheter: Decision to DC Catheter Urinary Catheter Date of Insertion: 10/13/20 Urinary Catheter Time of Insertion: 23:00 Date Urinary Catheter Removed: 10/14/20 Time Urinary Catheter Discontinued: 10:45 Discharge Data Data Completed and Pending: Completed Studies During Hospitalization Category Date Time Status CT chest abd pel wo con Stat Cat Scan 10/14/20 02:[address] head wo con* 7 0450 Urgent Cat Scan 10/13/20 21:22 Completed XR chest 1V walter ble [id number] Urgent Exams 10/13/20 21:22 Completed Pending at discharge Category Date Time Status Blood Culture Sta t Lab 10/13/20 23:26 Results Complete Blood Co unt w/Auto AM LABS Lab 10/16/20 04:00 Ordered Complete Blood Co unt w/Auto AM LABS Lab 10/17/20 04:00 Ordered Comprehensive Met abolic Panel AM LA BS Lab 10/16/20 04:00 Ordered Comprehensive Met abolic Panel AM LA BS Lab 10/17/20 04:00 Ordered Lamotrigine (Lami ctal) Level Stat Lab 10/13/20 23:25 Received Urine Culture Sta t Lab 10/13/20 23:07 Results Labs from last 24 hours 10/15/20 10/15/20 10/14/20 07:35 07:35 21:34 WBC 6.1 RBC 3.61 L Hgb 11.3 L Hct 33.3 L MCV 92.2 MCH 31.3 MCHC 33.9 RDW 13.2 Plt Count 220 MPV 11.3 H Neut % (Auto) 29.4 Lymph % (Auto) 55.2 [place] % (Auto) 13.2 Eos % (Auto) 1.0 Baso % (Auto) 1.0 Neut # (Auto) 1.78 L Lymph # (Auto) 3.3 [place] # (Auto) 0.8 Eos # (Auto) 0.1 Baso # (Auto) 0.1 Nucleated RBC % (a uto) 0 Nucleated RBCs # 0.0 Sodium 134 L 132 L Potassium 4.3 Chloride 101 Carbon Dioxide 22 Anion Gap 15.3 BUN 6 Creatinine 0.4 L GFR Calculation 194.5 H Glucose 79 Calculated Osmolal ity 275 L Calcium 8.5 Total Bilirubin 0.2 AST 39 H ALT 19 Alkaline Phosphata se 182 H Total Protein 6.9 Albumin 4.1 Globulin 2.8 10/14/20 10/14/20 18:50 14:05 WBC RBC Hgb Hct MCV MCH MCHC RDW Plt Count MPV Neut % (Auto) Lymph % (Auto) [place] % (Auto) Eos % (Auto) Baso % (Auto) Neut # (Auto) Lymph # (Auto) [place] # (Auto) Eos # (Auto) Baso # (Auto) Nucleated RBC % (a uto) Nucleated RBCs # Sodium 128 L 125 L Potassium Chloride Carbon Dioxide Anion Gap BUN Creatinine GFR Calculation Glucose Calculated Osmolal ity Calcium Total Bilirubin AST ALT Alkaline Phosphata se Total Protein Albumin Globulin Vitals: Last Vital Signs Temp 98.5 F 10/15/20 12:00 Pulse 85 10/15/20 12:00 Resp 18 10/15/20 12:00 BP 97/65 10/15/20 12:00 Pulse Ox 100 10/15/20 12:00 Discharge Plan Discharge Patient Disposition: Home Condition: Stable Prescriptions: New cefdinir 300 mg capsule 300 mg PO BID 5 Days Qty: 10 RF: 0 Continued ofloxacin 0.3 % drops 5 drop EAR-BOTH BID 7 Days Qty: 5 RF: 0 hydrocortisone 10 mg tablet 10 mg PO BID RF: 0 phenobarbital 60 mg tablet 60 mg PO BID RF: 0 lamotrigine 200 mg tablet 400 mg PO BID RF: 0 clonazepam 1 mg tablet 1 mg PO TID RF: 0 triamcinolone acetonide 0.025 % cream See Rx Instructions .ROUTE .COMPLEX RF: 0 Banzel 400 mg tablet 1,400 mg PO BID RF: 0 levothyroxine [Levoxyl] 100 mcg Tablet 100 mcg PO DAILY Qty: 30 RF: 0 Changed Keppra 250 mg Tablet 1,750 mg PO BID Qty: 0 RF: 0 Discharge Orders: Discharge Order (Routine); Ordered 10/15/20 Ordered By: Stone Moreno Referrals: Cindy Leger APRN [Primary Care Provider] - 10/21/20 10:00 am (Hyponatremia, possible breakthrough seizure) Kelvin Matute, SOURAV, MSN, AGACNP- [Nurse Practitioner] - 10/20/20 2:45 pm Discharge Diet: Start new tube feeds as directed Discharge Activity: Resume usual activity Patient Instructions: Levetiracetam (By mouth), How to Use and Care for Your PEG Tube (GEN), Urinary Tract Infection in Women (GEN), Hyponatremia (GEN), Epilepsy (GEN) Activity Restrictions/Additional Instructions: Please follow-up in neurology clinic regarding adjust Keppra dose. Please follow-up with primary care provider to follow-up sodium level. Please change tube feeding to nutren 1.5 1 can per feeding 4 times daily. Provide water flushes 240mL (1 cup) with each feeding, then discuss again with primary provider at dr's appointment. Please note that due to urinary tract infection antibiotic is started. Please be aware that final culture results with identification of bacteria and sensitivities may take several days. In case change of antibiotic is needed you may be contacted. Please follow-up with primary care provider regarding return to infection and final results of the culture. Please continue follow-up with endocrinology. Continue frequent repositioning to prevent pressure wounds. Please monitor blood pressures at home. Discharge Attestations Time Spent in Discharge Care*: greater than 30 min Status at Discharge: Cognitive status at discharge: severely impaired cognition (At baseline however. ) , Quality Metrics Clinical Quality Measures During this hospital stay, did patient experience: None Coding Level of Care Code Acute Chg FW DC note Diagnoses Chronic hyponatremia E87.1 Dehydration E86.0 Breakthrough seizure G40.919
--- NOTE | 2020-10-15 14:11 | PC.SOCIAL ---
Notified Mother Kayley after verifying with nurse Hoffman that they can pick her up around 3:30pm. She verbalized understanding.
[2020-10-15 15:53] VITALS: BP 97/65; PULSE 85; RESP 18; TEMP 36.9; O2SAT 100
--- NOTE | 2020-10-20 09:04 | PC.SOCIAL ---
Mother called to explain that patient was doing well initially but over last few days she is having reflux like symptoms. When asked to explain saying acting as though she may have gas and need to vomit. She has burped her which provided some relief. We reviewed the dc information and Mother indicates the dc papers may have been left in sister car. We discussed the appt with her PCP tomorrow and with Neurology today. She was unaware of the appt with Neurology today. She will try and make sure she gets there. She also did not increase the dose of Keppra to 1750mg since did not review paperwork. She was aware of the appt tomorrow with PCP and plans to attend. She will discuss the increase dose with Kelvin Matute today to see if she should have the increased dose. Did make the changes to her food intake.
[2020-10-20 10:47] LABS: Lamotrigine (Lamictal) Level 13.4 mcg/mL (4.0-18.0)
== END 2020-10-15 15:54 | disposition home or self-care (01) ==
LOC: ER 21:26 → MEDSURG 10-14 00:32
PROVIDERS: Admitting Provider Internal Medicine; Emergency Provider Family Medicine; PCP Nurse Practitioner Family; Visit Provider Internal Medicine
DX: E87.1 Hypo-osmolality and hyponatremia (principal); G40.919 Epilepsy, unspecified, intractable, without status epilepticus; E86.0 Dehydration; G80.9 Cerebral palsy, unspecified; Z93.1 Gastrostomy status
CPT/HCPCS: 36415; 36600; 51702; 70450; 71045; 71250; 74176; 80048; 80053; 80175; 80184; 81001; 82550; 82805; 83605; 83735; 83880; 84146; 84295; 84443; 85025; 87040; 87077; 87086; 87186; 87205; 93005; 96361; 96365; 96367; 96372; 99285; G0378; J0696; J1650; J1953; J7030; J8499

== ENCOUNTER → 2020-10-20 14:55 | Outpatient (BNVA) | payer MEDICARE, MEDICAID, SELFPAY | PROVIDERS: PCP Nurse Practitioner Family; Referring Provider Internal Medicine; Visit Provider Nurse Practitioner | DX: G40.909 Epilepsy, unspecified, not intractable, without status epilepticus (principal); G80.9 Cerebral palsy, unspecified | CPT/HCPCS: 99213 ==

== ENCOUNTER 2020-10-24 11:21 | Inpatient (IN) | payer MEDICARE, MEDICAID, SELFPAY ==
[2020-10-24] VITALS (37 sets, daily range): BP systolic 53–99; BP diastolic 42–65; PULSE 65–125; RESP 9–26; TEMP 36.8; O2SAT 72–100
--- NOTE | 2020-10-24 11:49 | XR_ITS ---
WS: [id number] Portable AP upright chest, 10/24/2020 Clinical Data: reduced breath sounds Comparison: Portable chest, 10/13/2020. Findings: No nodules, masses or effusions are seen. The heart is normal. The pulmonary vascularity is not increased. No pneumonia or pneumothorax is seen. There are pedicle screws extending from the upp er thoracic spine to the lumbar spine. The patient has a levoscoliosis of the thoracic spine. There i s a stimulator generator overlying the left lateral chest. XR/XR chest 1V portable [id number] Impression: Negative chest.
--- NOTE | 2020-10-24 11:55 | ED_ITS ---
HPI - General Adult General: Chief complaint: General Medical Stated complaint: POSS UTI Time Seen by Provider: 10/24/20 11:32 History of Present Illness: HPI narrative: The patient is a 25-year-old female with past medical history cerebral palsy with contractures. Baseline she smiles but does not talk. Family says she has been less responsive for the past day and they feel like she does not feel well. She was admitted here recently with hyponatremia which was corrected and improved her mental status to back to her baseline. Severity: moderate Review of Systems General: Reports: ROS unobtainable due to mental status PFSH ED PFSH: Medical History Cerebral palsy Hyponatremia Hypothyroidism Panhypopituitarism Perforated tympanic membrane Seizure disorder Surgical History S/P percutaneous endoscopic gastrostomy (PEG) tube placement Status post VNS (vagus nerve stimulator) placement ? Family History Other Diabetes Hyperlipidemia Social History Smoking and tobacco status: unknown if ever smoked Physical Exam Narrative: EXAM NARRATIVE: chronic cerebral palsy. Contractures to limbs. Responds to painful stimuli. nonverbal HENMT: COMMON NORMALS: normocephalic, external ears normal and Normal external nose present HEAD & SCALP: normal to inspection and normocephalic NOSE: Normal external nose present EXTERNAL EAR: Yes external ears normal MOUTH: Normal oral and palatal mucosa present THROAT: posterior oropharynx normal Eye: COMMON NORMALS: Equal, round and reactive pupils present and EOMs intact bilaterally GENERAL EYE: appearance normal, both eyes and all related structures PUPIL: Yes Equal, round and reactive pupils present Neck/C-Spine: COMMON NORMALS: full ROM, no lymphadenopathy, no meningeal signs and no JVD GENERAL: Yes normal visual inspection Lymph: LYMPHATIC: no lymphadenopathy noted Chest: COMMONS NORMALS: normal inspection of the chest and normal palpation of entire chest wall Resp: COMMON NORMALS: normal respiratory effort, No retractions, No use of accessory muscles, clear to auscultation bilaterally and percussion normal EFFORT & INSPECTION: Yes able to speak in complete sentences AUSCULTATION: clear to auscultation bilaterally PERCUSSION: percussion normal Cardio: COMMON NORMALS: no JVD, regular rate, regular rhythm, S1 normal heart sound present, S2 normal heart sound present and Peripheral pulses 2+ throughout RATE: regular rate RHYTHM: regular rhythm HEART SOUNDS: S1 normal heart sound present and S2 normal heart sound present PERIPHERAL PULSES: Peripheral pulses 2+ throughout GI: COMMON NORMALS: Normal to inspection, nondistended, normoactive bowel sounds present, Soft to palpation, non-tender and no masses INSPECTION: Yes normal to inspection PALPATION: Yes Soft to palpation : COMMON NORMALS: Yes no CVA tenderness BLADDER/KIDNEY EXAM: Yes no CVA tenderness Back/Pelvis: COMMON NORMALS: no CVA tenderness, thoracic and lumbar spine normal to inspection, no thoracic nor lumbar tenderness and thoraco-lumbar ROM normal Extremity: COMMON NORMALS: normal to inspection, full ROM, capillary refill normal, no joint enlargement and no pedal edema GENERAL: Yes normal exam except as noted Neuro: MENINGEAL SIGNS: Yes no meningeal signs Skin: COMMON NORMALS: no rashes or lesions noted GENERAL SKIN EXAM: no rashes or lesions noted Course Vital Signs: Vital signs: Vital Signs Pulse Rate 81 10/24/20 11:29 Respiratory Rate 18 10/24/20 11:29 Blood Pressure 84/56 10/24/20 12:52 Pulse Oximetry 100 10/24/20 12:52 MDM - General Adult MDM Narrative: Medical decision making narrative: The patient comes in with altered mental status and she chronically has cerebral palsy and is nonverbal at baseline. Sodium is 110. CT shows no edema. She was given a liter of fluids and has been hypotensive though her pressures run soft normally. Discussed with Dr. Thompson who accepts for admission to the ICU. We will repeat the BMP prior to admission. Lab Data: Labs: Lab Results 10/24/20 10/24/20 10/24/20 Range/Units 12:40 12:40 13:05 WBC 4.2 (4.0-10.0) 10^3/ uL RBC 3.30 L (4.1-5.3) 10^6/u L Hgb 10.4 L (11.5-15.3) g/dL Hct 30.4 L (37.0-47.0) % MCV 92.1 (81-99) fL MCH 31.5 (28.0-34.0) pg MCHC 34.2 (30.0-36.0) g/dL RDW 12.3 (12.1-15.1) % Plt Count 150 (130-400) 10^3/c mm MPV 11.2 H (7.4-10.4) fL Neut % (Auto) 23.4 % Lymph % (Auto) 60.8 % [place] % (Auto) 12.7 % Eos % (Auto) 2.4 % Baso % (Auto) 0.5 % Neut # (Auto) 0.98 L* (1.8-7.7) 10^3/u L Lymph # (Auto) 2.5 (0.8-4.8) 10^3/u L [place] # (Auto) 0.5 (0.2-0.9) 10^3/u L Eos # (Auto) 0.1 (0.0-0.8) 10^3/u L Baso # (Auto) 0.0 (0.0-0.1) 10^3/u L Nucleated RBC % (a uto) 0 % Nucleated RBCs # 0.0 /100WBC Sodium Cancelled Potassium Cancelled Chloride Cancelled Carbon Dioxide Cancelled Anion Gap Cancelled BUN Cancelled Creatinine Cancelled GFR Calculation Cancelled Glucose Cancelled Calculated Osmolal ity Cancelled Lactate 0.8 (0.5-2.2) mmol/L Calcium Cancelled Total Bilirubin Cancelled AST Cancelled ALT Cancelled Alkaline Phosphata se Cancelled Total Protein Cancelled Albumin Cancelled Globulin Cancelled HCG, Qual (Negative) Urine Color (Yellow) Urine Appearance (CLEAR) Urine pH (5-7) Ur Specific Gravit y (1.005-1.030) Urine Protein (Negative) Urine Glucose (UA) (Normal) Urine Ketones (Negative) Urine Blood (Negative) Urine Nitrate (Negative) Urine Bilirubin (Negative) Prot Sulfosalicyli c Acd (Negative) Urine Urobilinogen (Negative) mg/dL Ur Leukocyte Rafaela ase (Negative) 10/24/20 10/24/20 10/24/20 Range/Units 13:05 14:00 14:00 WBC (4.0-10.0) 10^3/ uL RBC (4.1-5.3) 10^6/u L Hgb (11.5-15.3) g/dL Hct (37.0-47.0) % MCV (81-99) fL MCH (28.0-34.0) pg MCHC (30.0-36.0) g/dL RDW (12.1-15.1) % Plt Count (130-400) 10^3/c mm MPV (7.4-10.4) fL Neut % (Auto) % Lymph % (Auto) % [place] % (Auto) % Eos % (Auto) % Baso % (Auto) % Neut # (Auto) (1.8-7.7) 10^3/u L Lymph # (Auto) (0.8-4.8) 10^3/u L [place] # (Auto) (0.2-0.9) 10^3/u L Eos # (Auto) (0.0-0.8) 10^3/u L Baso # (Auto) (0.0-0.1) 10^3/u L Nucleated RBC % (a uto) % Nucleated RBCs # /100WBC Sodium 110 L* Potassium 4.2 Chloride 80 L Carbon Dioxide 19 L Anion Gap 15.2 BUN 4 L Creatinine 0.2 L GFR Calculation 432.8 H Glucose 81 Calculated Osmolal ity 226 L Lactate (0.5-2.2) mmol/L Calcium 7.5 L Total Bilirubin 0.2 AST 30 ALT 16 Alkaline Phosphata se 159 H Total Protein 6.1 L Albumin 3.5 Globulin 2.6 HCG, Qual Negative (Negative) Urine Color Yellow (Yellow) Urine Appearance Clear (CLEAR) Urine pH 8 H (5-7) Ur Specific Gravit y 1.010 (1.005-1.030) Urine Protein Neg (Negative) Urine Glucose (UA) Norm (Normal) Urine Ketones Negative (Negative) Urine Blood Neg (Negative) Urine Nitrate Negative (Negative) Urine Bilirubin Neg (Negative) Prot Sulfosalicyli c Acd Negative (Negative) Urine Urobilinogen Norm (Negative) mg/dL Ur Leukocyte Rafaela ase Negative (Negative) Discharge Plan Discharge Patient Disposition: Admitted As Inpatient Clinical Impression: Acute hyponatremia, Acute alteration in mental status Condition: Stable Coding Level of Care Code ED [place] [employer] for tino Fwd Exam Comprehensive
[2020-10-24 12:48] LABS: Basophils % 0.5 %; Eosinophils # 0.1 10^3/uL (0.0-0.8); Eosinophils % 2.4 %; Hematocrit 30.4 % (37.0-47.0); Hemoglobin 10.4 g/dL (11.5-15.3); Lymphocytes # 2.5 10^3/uL (0.8-4.8); Lymphocytes % 60.8 %; Mean Corpuscular HGB Conc 34.2 g/dL (30.0-36.0); Mean Corpuscular Hemoglobin 31.5 pg (28.0-34.0); Mean Corpuscular Volume 92.1 fL (81-99); Mean Platelet Volume 11.2 fL (7.4-10.4); Monocytes # 0.5 10^3/uL (0.2-0.9); Monocytes % 12.7 %; Neutrophils % 23.4 %; Nucleated Red Blood Cells % 0 %; Platelet Count 150 10^3/cmm (130-400); Red Cell Distribution Width 12.3 % (12.1-15.1); White Blood Count 4.2 10^3/uL (4.0-10.0)
[2020-10-24] MEDS: sodium chloride 0.9% 1,000 ML 999 ML IV (12:48)
[2020-10-24 12:58] LABS: Neutrophils # 0.98 10^3/uL (1.8-7.7)
[2020-10-24 13:34] LABS: Alanine Aminotransferase 16 U/L (0-33); Albumin Level 3.5 g/dL (3.5-5.2); Alkaline Phosphatase 159 IU/L (35-105); Anion Gap 15.2 (5-19); Aspartate Amino Transferase 30 U/L (0-32); Blood Urea Nitrogen 4 mg/dL (6-20); Calcium 7.5 mg/dL (8.5-10.5); Carbon Dioxide 19 mmol/L (22-29); Chloride 80 mmol/L (98-107); Globulin 2.6 g/dL (1.3-4.6); Glomerular Filtration Rate 432.8 mL/min (90-130); Glucose 81 mg/dL (65-115); Osmolality Calculated 226 mOsm/kg (285-295); Potassium 4.2 mmol/L (3.5-5.1); Total Bilirubin 0.2 mg/dL (0.15-1.2); Total Protein 6.1 g/dL (6.6-8.7)
[2020-10-24 13:35] LABS: Lactate (Lactic Acid level) 0.8 mmol/L (0.5-2.2)
[2020-10-24 13:36] LABS: Sodium 110 mmol/L (136-145)
--- NOTE | 2020-10-24 13:38 | CT_ITS ---
WS: [id number] CT HEAD TECHNIQUE: Noncontrast CT of the head obtained from the skullbase to the vertex. CLINICAL INFORMATION: na 110. altered COMPARISON: October 13, 2020 DLP: 861.[address] scans at [facility] use at least one of these dose optimization techniques: automat ed exposure control; mA and/or kV adjustment per patient size (includes targeted exams where dose is matched to clinical indication); or iterative reconstruction. FINDINGS: No evidence of intracranial hemorrhage or mass effect. Ventricular system and basal cisterns are avalos nt.. Normal esquivel-white differentiation. Mild parenchymal volume loss. No extra-axial fluid collection s. No evidence of mass or mass effect. Normal esquievl-white differentiation. Paranasal sinuses and mastoid air cells are well aerated. .Normal visualized soft tissues. CT/CT head wo con* [id number] IMPRESSION: 1. No evidence of intracranial hemorrhage or mass effect. 2. Mild parenchymal volume loss. Normal esquivel-white differentiation. 3. No acute intracranial findings.
[2020-10-24 14:08] LABS: Add Urine Microscopic? NO; Charge for UA Resulting for Rev
[2020-10-24 14:12] LABS: Bilirubin Urine Neg (Negative); Blood Urine Neg (Negative); Glucose Urine UA Norm (Normal); HCG Qualitative Urine. Negative (Negative); Ketones Urine Negative (Negative); Leukocyte Esterase Urine Negative (Negative); Nitrate Urine Negative (Negative); Protein Urine Neg (Negative); Sulfosalicylic Acid Urine Negative (Negative); Urine Appearance Clear (CLEAR); Urine Color Yellow (Yellow); Urobilinogen Urine Norm (Negative); pH Urine 8 (5-7)
--- NOTE | 2020-10-24 15:17 | P.HP_ITS ---
Providers/Chief Complaint Primary Care Provider: Cindy Leger APRN Chief Complaint: POSS UTI History of Present Illness Jennyfer Bliss is a 25 year old female with cerebral palsy, spastic quadriplegia, requiring total assistance, PEG tube feeding, chronic hyponatremia, hypothyroidism, panhypopituitarism following with endocrinology, seizure disorder per her and following with Dr. Land at neurology clinic, treated with phenobarbital, lamotrigine, Keppra, was brought in for evaluation due to finding of decreased responsiveness as per the family members today. As per the family member she usually smiles but she is not been responding as much since last night. On examination at patient's bedside is a grandmother who is apparently a caregiver for the patient but is not really sure what is been going on with the patient. I suspect grandmother has some dementia as well. Unfortunately no other history is available at this point. I tried calling patient's other cocaregiver Ms. Charlee bliss multiple times but not able to get through. Blood work in the ER showed a white count 4.2, hemoglobin of 10.4, ANC of 0.98, sodium of 110, chloride of 80, carbon dioxide of 19, creatinine of 0.2, calcium was 7.5, AST/ALT of 30/16, UA negative for any signs of infection with negative nitrite negative leuk esterase. Chest x-ray in the ER negative for any acute pathology, CT head done in the ER showing no evidence of intracranial hemorrhage or mass, mild parenchymal volume loss. Review of Systems General: Reports: ROS unobtainable due to mental status Medications/Allergies Home Medications Medication Instructions Recorded Confirmed Last Taken Type ofloxacin 0.3 % ear drops 5 drop EAR-BOTH BID 7 Days #5 ml 03/28/20 10/24/20 Unknown Rx Banzel 1,400 mg PO BID@0700,1900 04/01/20 10/24/20 10/24/20 History clonazepam 1 mg PO TID@07,12,19 04/01/20 10/24/20 10/24/20 History lamotrigine 400 mg PO BID@0700,1900 04/01/20 10/24/20 10/24/20 History triamcinolone acetonide See Rx Instructions .ROUTE .COMPLEX 04/01/20 10/24/20 Unknown History hydrocortisone 10 mg tablet 10 mg PO BID@0700,1900 tab 08/25/20 10/24/20 10/24/20 History phenobarbital 60 mg tablet 60 mg PO BID@0700,1900 08/25/20 10/24/20 10/24/20 History Keppra 1,500 mg PO BID@0700,1900 10/24/20 10/24/20 10/24/20 History Levoxyl 100 mcg PO DAILY@0700 10/24/20 10/24/20 10/24/20 History Allergies Allergy/AdvReac Type Severity Reaction Status Date / Time diphenhydramine Allergy ADR-Seizure Verified 10/20/20 15:12 [From Benadryl] PFSH Acute PFSH: Medical History (Updated 10/24/20 @ 17:34 by Pierre Madera MD) Cerebral palsy Hyponatremia Hypothyroidism Panhypopituitarism Perforated tympanic membrane Seizure disorder Surgical History S/P percutaneous endoscopic gastrostomy (PEG) tube placement Status post VNS (vagus nerve stimulator) placement ? Family History Other Diabetes Hyperlipidemia Social History Smoking and tobacco status: unknown if ever smoked Vitals/I&O/Wt Last Vital Signs Pulse 81 10/24/20 11:29 Resp 18 10/24/20 11:29 BP 84/56 10/24/20 12:52 Pulse Ox 100 10/24/20 12:52 Weight last 48 hrs Weight 54.431 kg Physical Exam Narrative: EXAM NARRATIVE: Young female who is moving her head, spontaneous opening of her eyes, not able to make eye contact a reciprocate to verbal commands No skin rash, diaper rash, pressure injury ulcers Pale complexion and dehydrated Abdomen soft with active bowel sounds, no guarding but unable to assess for any tenderness Spastic quadriplegia Bilateral breath sounds diminished, her breathing is not labored Mild conjunctival hyperemia of the left eye Sequeira catheter draining clear yellow urine No joint swelling Urinary Catheter Management^: Sequeira: Cath Placed During This Visit: yes Urinary Catheter Date of Insertion: 10/24/20 Urinary Catheter Time of Insertion: 14:08 Data : 10/24/20 12:40 10/24/20 15:10 A&P Assessment and plan (1) Acute hyponatremia: Status: Acute (2) Acute alteration in mental status: Status: Acute (3) Cerebral palsy: Status: Acute (4) Seizure disorder: Status: Acute (5) Panhypopituitarism: Status: Acute (6) Hypothyroidism: Status: Acute (7) Neutropenia: Status: Acute Additional A&P Information 25-year-old female with past medical history of seizure disorder, panhypopituitarism, hypothyroidism, cerebral palsy, chronic hyponatremia presents to the ER today with altered mental status. Altered mental status: Acute on chronic hyponatremia: Most likely patient's altered mental status is because of acute hyponatremia but cannot rule site of infection. On last discharge it was thought hyponatremia is because of over free water flushes and she was sent on Nutren 1.54 cans/day with 250 free water flushes with each feeding. Baseline sodium seems to be ranging between 125-130. 110 today. In the ER she received 1 L bolus. Repeat BMP. Depending on the repeat BMP will see if patient needs 3% normal saline. Check urine lites, stat urine osmolality, serum osmolality. Check HbA1c, lipid panel, TSH. BMP every 4 hours. Most likely patient will need 3% normal saline 100 cc boluses. Target sodium correction 10 meq in next 24 hours or 4 mEq in next 12 hours. We will continue to monitor. Patient is on multiple antiseizure medications which can all cause hyponatremia as well. But patient has a history of breakthrough seizures so we will continue the antiseizure medications for now. Check Keppra level, lamotrigine level, phenobarbital level. Cannot rule out site of infection. Check CTA chest abdomen pelvis to rule out any sign of infection or collection in abdomen. History of panhypopituitarism: Patient takes hydrocortisone 10 mg p.o. twice daily. Given acute hyponatremia and borderline blood pressures for now will switch her over to stress dose steroids 1 mg/kg body weight hydrocortisone every 6 hours. Check iron panel, TSH, procalcitonin, prolactin, MRSA swab, blood culture, urinalysis, urine culture. Cerebral palsy. Full code for now. Will reassess CODE STATUS with family members once able to get in touch. We will have to wait for family members to see the schedule of tube feeds. For now start the tube feeds as per last discharge a week ago. Heparin 5000 every 12. Social discord: Patient's code child day care teacher at the bedside is her grandmother who seems to be having dementia as well and has multiple bruises on the face. We will involve case management for safe discharge planning. Attestations Medical Necessity Statement*: Patient requires hospitalization for 2 more than 2 midnights because of acute hyponatremia Critical Care Time: Critical Care Time (min): 80 Coding Level of Care Code Acute Packaging Sales Consultant for g Fwd Diagnoses Acute hyponatremia E87.1 Acute alteration in mental status R41.82 Cerebral palsy G80.9 Seizure disorder G40.909 Panhypopituitarism E23.0 Hypothyroidism E03.9 Neutropenia D70.9
[2020-10-24 15:58] LABS: NT Pro B Type Natriuretic Pept 564 pg/mL (0-125); Procalcitonin 0.02 ng/mL (0-0.5); Thyroid Stimulating Hormone 0.53 uIU/mL (0.27-4.20)
[2020-10-24 16:08] LABS: Blood Urea Nitrogen 5 mg/dL (6-20); Calcium 7.5 mg/dL (8.5-10.5); Carbon Dioxide 17 mmol/L (22-29); Chloride 80 mmol/L (98-107); Glomerular Filtration Rate 432.8 mL/min (90-130); Glucose 82 mg/dL (65-115); Iron 46 ug/dL (37-145); Osmolality Calculated 224 mOsm/kg (285-295)
[2020-10-24 16:11] LABS: Anion Gap 16.9 (5-19); Percent Saturation 25.9 % (20-50); Potassium 4.9 mmol/L (3.5-5.1); Total Iron Binding Capacity 177 mcg/dl; Unsaturated Iron Binding 131 ug/dL (112-347)
[2020-10-24 16:19] LABS: Sodium 109 mmol/L (136-145)
[2020-10-24 16:27] LABS: Potassium, Radom Urine 35 mmol/L; Urine Random Chloride 126 mmol/L; Urine Random Sodium 140 mmol/L
[2020-10-24] MEDS: heparin 5,000 unit/mL INJ 1 mL 5000 UNIT SUBCUT (17:16)
[2020-10-24] MEDS: hydrocortisone 100 mg/2 mL SDV 54.43 MG IVP ×2 (17:16→21:00)
[2020-10-24] MEDS: famotidine 20 mg/2 mL INJ IVP (17:16)
--- NOTE | 2020-10-24 17:35 | CTR_ITS ---
PROCEDURE INFORMATION: Exam: CT Chest With Contrast; Diagnostic Exam date and time: 10/24/2020 6:03 PM Age: 25 years old Clinical indication: Fever; Prior surgery; Surgery type: Back, peg tube; Additional info: Possible source of infection, peg tube leak Other procedure information: Thoracolumbar fusion TECHNIQUE: Imaging protocol: Diagnostic computed tomography of the chest with contrast. Radiation optimization: All CT scans at this facility use at least one of these dose optimization techniques: automated exposure control; mA and/or kV adjustment per patient size (includes targeted exams where dose is matched to clinical indication); or iterative reconstruction. Contrast material: OMNI 300; Contrast volume: 75 ml; Contrast route: INTRAVENOUS (IV); COMPARISON: CT chest abd pel wo con 10/14/2020 3:37 AM RADIATION DOSE METRICS: Total DLP (mGy-cm): 1681.86 FINDINGS: Tubes, catheters and devices: Left anterior chest wall device noted. Lungs: Mild dependent atelectasis at the lung bases. No consolidative infiltrates. Pleural spaces: Unremarkable. No pneumothorax. No pleural effusion. Heart: No cardiomegaly demonstrated. No cardiomegaly demonstrated. Aorta: No aortic aneurysm. Lymph nodes: No pathologically enlarged lymph nodes are demonstrated. Bones/joints: Postop change of the spine, with paired Reardon rods from T3 through L4 noted. Hardware appears intact and unchanged. Mild to moderate S shaped scoliosis noted. Mild chronic wedge compression deformities at C7, T1, and T5. Soft tissues: The soft tissues appear unremarkable. IMPRESSION: 1. No acute cardiopulmonary disease demonstrated. 2. There is no interval change from the prior examination. PROCEDURE INFORMATION: Exam: CT Abdomen And Pelvis With Contrast Exam date and time: 10/24/2020 6:03 PM Age: 25 years old Clinical indication: Fever; Prior surgery; Surgery type: Back, peg tube; Additional info: Possible source of infection, peg tube leak TECHNIQUE: Imaging protocol: Computed tomography of the abdomen and pelvis with contrast. Radiation optimization: All CT scans at this facility use at least one of these dose optimization techniques: automated exposure control; mA and/or kV adjustment per patient size (includes targeted exams where dose is matched to clinical indication); or iterative reconstruction. Contrast material: OMNI 300; Contrast volume: 75 ml; Contrast route: INTRAVENOUS (IV); COMPARISON: CT chest abd pel wo con 10/14/2020 3:37 AM RADIATION DOSE METRICS: Total DLP (mGy-cm): 1681.86 FINDINGS: Lungs: No significant abnormaility demonstrated. Liver: The liver is unremarkable in appearance. Gallbladder and bile ducts: 5 mm calcified gallstone in the gallbladder. There are no secondary signs of cholecystitis. No biliary dilatation. Pancreas: The pancreas is normal in appearance. No pancreatic duct dilatation. Spleen: The spleen is normal in size and appearance. Adrenal glands: Unremarkable. No mass. Kidneys and ureters: The kidneys are normal in morphology. No hydronephrosis. No solid mass. Stomach and bowel: Retained stool throughout most of the colon as well as in the rectum suggesting constipation. No inflammation of the colon noted. Percutaneous gastrostomy noted. The distal portion of the tube is seen within the stomach. No acute gastric abnormality. The small bowel is unremarkable as demonstrated. Appendix: No evidence of appendicitis. Intraperitoneal space: No pneumoperitoneum. No significant fluid collection. Vasculature: No abdominal aortic aneurysm. Lymph nodes: No pathologically enlarged lymph nodes. Urinary bladder: There is a Sequeira catheter in the urinary bladder. Urinary bladder is empty secondary to the presence of the Sequeira catheter. No bladder abnormality noted. Reproductive: No acute abnormality. Bones/joints: Postop changes. No acute osseous abnormality. Soft tissues: Unremarkable. CT/CT chest abd pel w con* IMPRESSION: 1. Retained stool throughout most of the colon as well as in the rectum suggesting constipation. No inflammation of the colon noted. 2. 5 mm calcified gallstone in the gallbladder. There are no secondary signs of cholecystitis. No biliary dilatation. 3. Percutaneous gastrostomy noted. The distal portion of the tube is seen within the stomach. No acute gastric abnormality. 4. No acute abnormality demonstrated in the abdomen and pelvis. 5. There is no interval change from the prior examination. Radiation Dose CTDIVOL = (mGy): DLP = 1681.86~1681.86 (mGy-cm)
[2020-10-24] MEDS: iohexol 300 mg/mL 100 mL Btl IV (18:33)
[2020-10-24] MEDS: sodium chloride 0.9% 1,000 ML 30 ML IV (19:30)
[2020-10-24 19:37] LABS: Blood Urea Nitrogen 3 mg/dL (6-20); Calcium 7.5 mg/dL (8.5-10.5); Carbon Dioxide 16 mmol/L (22-29); Chloride 81 mmol/L (98-107); Glomerular Filtration Rate 432.8 mL/min (90-130); Glucose 77 mg/dL (65-115); Osmolality Calculated 225 mOsm/kg (285-295)
[2020-10-24 19:38] LABS: Anion Gap 17.6 (5-19); Magnesium 1.8 mg/dL (1.7-2.3); Phosphorus 2.4 mg/dL (2.5-4.5); Potassium 4.6 mmol/L (3.5-5.1)
[2020-10-24 19:39] LABS: Sodium 110 mmol/L (136-145)
--- NOTE | 2020-10-24 20:38 | PM.CONSULT ---
Providers/Reason For Consult Consulting Physican/Specialty*: Nephrology Reason for Consult*: Hyponatremia Attending Physician: Pierre Madera MD Primary Care Provider: Cindy Leger APRN History of Present Illness History of Present Illness Thank you for consultation, today had the pleasure of reviewing this unfortunate 25-year-old female for evaluation of hyponatremia. Currently the patient is unable to give any additional information she is currently altered, family members are not available for discussion and additional history. She is brought in for altered mental status, as per family members she usually smiles but is not responding much this evening. Admission sodium is 110, dropping down to 109, improving to 110 again this evening. Initially she received 100 cc of 3% solution, now she has been transitioned to normal saline at 30 cc an hour. Of interest, she has 1700 mL of very dilute appearing urine in her Sequeira catheter bag. Initial urinalysis performed demonstrates specific gravity of 1.01 with urine sodium of 140. Although germane testing includes TSH of 0.53. Hemodynamics do appear soft. She has a history of panhypopituitarism, for which she takes replacement therapy with hydrocortisone. Her recent compliance with his medication is unknown. Her recent intake of free water flushes with her PEG feeds is unknown. Review of Systems General: Reports: ROS unobtainable due to mental status Meds/Allergies Home Medications and Allergies Home Medications Medication Instructions Recorded Confirmed Last Taken Type ofloxacin 0.3 % ear drops 5 drop EAR-BOTH BID 7 Days #5 ml 03/28/20 10/24/20 Unknown Rx Banzel 1,400 mg PO BID@0700,1900 04/01/20 10/24/20 10/24/20 History clonazepam 1 mg PO TID@07,12,19 04/01/20 10/24/20 10/24/20 History lamotrigine 400 mg PO BID@0700,1900 04/01/20 10/24/20 10/24/20 History triamcinolone acetonide See Rx Instructions .ROUTE .COMPLEX 04/01/20 10/24/20 Unknown History hydrocortisone 10 mg tablet 10 mg PO BID@0700,1900 tab 08/25/20 10/24/20 10/24/20 History phenobarbital 60 mg tablet 60 mg PO BID@0700,1900 03/10/24/20 10/24/20 History Keppra 1,500 mg PO BID@0700,1900 10/24/20 10/24/20 10/24/20 History Levoxyl 100 mcg PO DAILY@0700 10/24/20 10/24/20 10/24/20 History Allergies Allergy/AdvReac Type Severity Reaction Status Date / Time diphenhydramine Allergy ADR-Seizure Verified 10/20/20 15:12 [From Benmaggieryl] Current Medications Current Medications Generic Name Dose Route Start Last Admin Trade Name Freq PRN Reason Stop Dose Admin Famotidine 20 mg 10/24/20 16:45 10/24/20 17:16 Famotidine 20 Mg/2 Ml Inj IVP 20 mg Q12H NIECY Administration Heparin Sodium (Beef Lung) 5,000 unit 10/24/20 16:45 10/24/20 17:16 Heparin 5,000 Unit/Ml Inj 1 Ml SUBCUT 5,000 unit Q12H NIECY Administration Hydrocortisone Sodium Succinate 54.43 mg 10/24/20 15:15 10/24/20 17:16 Hydrocortisone 100 Mg/2 Ml Sdv 1 mg/kg (54.43 mg) 54.43 mg IVP Administration Q6H NIECY PFSH Acute PFSH: Medical History (Updated 10/24/20 @ 17:34 by Pierre Madera MD) Cerebral palsy Hyponatremia Hypothyroidism Panhypopituitarism Perforated tympanic membrane Seizure disorder Surgical History S/P percutaneous endoscopic gastrostomy (PEG) tube placement Status post VNS (vagus nerve stimulator) placement ? Family History Other Diabetes Hyperlipidemia Social History Smoking and tobacco status: unknown if ever smoked Vitals/I&O/Wt Last Vital Signs Pulse 72 10/24/20 17:22 Resp 16 10/24/20 16:45 BP 99/65 10/24/20 16:45 Pulse Ox 94 10/24/20 17:22 Weight last 48 hrs Weight 54.431 kg Physical Exam Narrative: EXAM NARRATIVE: Constitutional: AMS HEENT: Wet mucosa, no jvp, non icteric Lungs: Bilaterally clear without discernible wheeze or rales in all lung zones CVS: S1 S2, no murmurs Abdo: Soft, BS ok Ext 4: Minimal edema, peripheral perfusion with no cyanosis Neurological: Grossly non-focal Urinary Catheter Management^: Sequeira: Cath Placed During This Visit: yes Reason for Continuing Indwelling Catheter: Accurate Measurement of Urinary Output in Critically Ill Patients Urinary Catheter Date of Insertion: 10/24/20 Urinary Catheter Time of Insertion: 14:08 Data Micro: Micro: Microbiology 10/24/20 13:05 Blood Culture - Pr eliminary Blood SPECIMEN COLLE NELLY A&P Additional A&P Information 1. Euvolemic hyponatremia Initially she is behaving like she has SIADH, the differential diagnosis of course is adrenal insufficiency. The differential diagnosis is therefore poor recent medication compliance with outpatient hydrocortisone, SIADH from antiseizure therapy, high water intake with free water flushes with low solute intake which of course is very speculative without additional information. The large volume of dilute appearing urine in her Sequeira bag leads me to believe that the stimulus for ADH is now waned and that she will start to correct her sodium quite quickly. Continue normal saline at 30 mL/h, will recheck sodium levels, urinalysis for specific gravity. Goal will be no more than 116 at 1:00 tomorrow afternoon and no more than 113-114 x 7 a.m. in the morning. If sodium increases to more than 114 overnight I will switch her over to D5W at 100 mL/h, if sodium remains 110 or below, will switch over to 3% saline at 30 cc/h. Discussed with nursing staff. 2. Seizures Management per neurology, I hear that her history of seizures is hard to control, and that adjusting her seizure medication will be challenging. If hyponatremia becomes recalcitrant, she may be a candidate for tolvaptan therapy so she can remain on a combination of antiseizure therapy. Thank you for consultation, as always it is a pleasure to follow these patients with you Exam and interview performed with aid of bedside RN using telemedicine Time spent 20 min inc > 50% of time in face to face counseling Gregorio Toro MD [facility] [phone] Coding Level of Care Code Acute Pipe Line Repairer for Lobito Paula
--- NOTE | 2020-10-24 22:05 | PC.NURSE ---
SHIFT NOTE-IV INSERTION Patient has routine labs to be collected every 4 hours at this time and it is very difficult to collect blood on her. Multiple air brush artist have attempted to collect blood and have not gotten the full amount needed to complete the ordered routine labs. Left hand IV site will flush easily but has no blood return. Upon further examination by multiple different nurses, patient was found to not have any potential peripheral IV sites present. This nurse notified hospitalist working and he then consulted ER doctor to come look for an IV site. Dr. Downing inserted an 18 gauge IV at bedside with guided ultrasound in the left upper arm. New left upper arm IV site flushes and has blood return.
[2020-10-24] MEDS: magnesium hydroxide 30 mL UDC PEG-TUBE (22:22)
[2020-10-24] MEDS: CLONazepam 1 mg Tablet PO (22:25)
[2020-10-24] MEDS: lamoTRIgine 100 mg Tablet 400 MG PO (22:26)
[2020-10-24] MEDS: levETIRAcetam 500 mg Tablet 1500 MG PO (22:27)
[2020-10-24] MEDS: ofloxacin 0.3% otic 5 mL Btl 5 DROP EAR-BOTH (22:27)
[2020-10-24 22:35] LABS: Anion Gap 17.6 (5-19); Blood Urea Nitrogen 3 mg/dL (6-20); Calcium 8.8 mg/dL (8.5-10.5); Carbon Dioxide 21 mmol/L (22-29); Chloride 87 mmol/L (98-107); Glomerular Filtration Rate 432.8 mL/min (90-130); Glucose 99 mg/dL (65-115); Osmolality Calculated 249 mOsm/kg (285-295); Potassium 4.6 mmol/L (3.5-5.1); Sodium 121 mmol/L (136-145)
[2020-10-25] VITALS (41 sets, daily range): BP systolic 80–98; BP diastolic 53–67; PULSE 56–84; RESP 10–19; TEMP 36.3–36.8; O2SAT 94–100; BMI 20.9
[2020-10-25] MEDS: dextrose 5 % 500 ML IV (00:08)
--- NOTE | 2020-10-25 00:40 | PC.NURSE ---
SHIFT NOTE- SODIUM LAB RESULT Patient had labs drawn at 2200. Sodium level came back 121. Called Dr. Landeros at 0050 and received orders to give D5W 500 mL bolus one time over 1 hour, then when that is infused give D5W at 100 mLs/hr.
[2020-10-25] MEDS: dextrose 5% 1,000 ML 100 ML IV (01:13)
[2020-10-25] MEDS: famotidine 20 mg/2 mL INJ IVP ×2 (03:54→17:06)
[2020-10-25] MEDS: hydrocortisone 100 mg/2 mL SDV 54.43 MG IVP ×4 (03:59→20:50)
[2020-10-25] MEDS: heparin 5,000 unit/mL INJ 1 mL 5000 UNIT SUBCUT ×2 (04:01→17:06)
[2020-10-25 04:33] LABS: Basophils % 0.3 %; Eosinophils % 0.3 %; Hematocrit 30.6 % (37.0-47.0); Hemoglobin 10.8 g/dL (11.5-15.3); Lymphocytes # 0.8 10^3/uL (0.8-4.8); Lymphocytes % 25.6 %; Mean Corpuscular HGB Conc 35.3 g/dL (30.0-36.0); Mean Corpuscular Hemoglobin 31.1 pg (28.0-34.0); Mean Corpuscular Volume 88.2 fL (81-99); Mean Platelet Volume 10.7 fL (7.4-10.4); Monocytes # 0.3 10^3/uL (0.2-0.9); Monocytes % 9.1 %; Neutrophils # 1.99 10^3/uL (1.8-7.7); Neutrophils % 64.4 %; Nucleated Red Blood Cells % 0 %; Platelet Count 247 10^3/cmm (130-400); Red Blood Count 3.47 10^6/uL (4.1-5.3); Red Cell Distribution Width 12.5 % (12.1-15.1); White Blood Count 3.1 10^3/uL (4.0-10.0)
[2020-10-25 04:48] LABS: Alanine Aminotransferase 21 U/L (0-33); Albumin Level 3.9 g/dL (3.5-5.2); Alkaline Phosphatase 188 IU/L (35-105); Anion Gap 13.3 (5-19); Aspartate Amino Transferase 39 U/L (0-32); Blood Urea Nitrogen 3 mg/dL (6-20); Calcium 8.5 mg/dL (8.5-10.5); Carbon Dioxide 23 mmol/L (22-29); Chloride 93 mmol/L (98-107); Chol HDL Ratio 2.07 mg/dL (0.0-4.40); Cholesterol 168 mg/dL (0-200); Globulin 3.4 g/dL (1.3-4.6); Glomerular Filtration Rate 271.1 mL/min (90-130); Glucose 114 mg/dL (65-115); HDL Cholesterol 81 mg/dL (60-100); LDL Cholesterol Calculated 78 mg/dL (50-129); Osmolality Calculated 257 mOsm/kg (285-295); Potassium 4.3 mmol/L (3.5-5.1); Sodium 125 mmol/L (136-145); Total Bilirubin 0.2 mg/dL (0.15-1.2); Total Protein 7.3 g/dL (6.6-8.7); Triglycerides 45 mg/dL (0-150); VLDL Cholestrol Calculation 9 mg/dL (0-30)
[2020-10-25 04:57] LABS: Estmated Average Glucose 82; Hemoglobin A1C 4.5 % (4.0-6.0)
--- NOTE | 2020-10-25 05:23 | PC.NURSE ---
SHIFT NOTE-SODIUM LEVEL Patient sodium levels at [address] Landeros and received verbal orders to give 1 mcg desmopressin IV and 1 liter of D5W over 2 hours IV.
[2020-10-25] MEDS: dextrose 5% 1,000 ML 500 ML IV ×2 (06:25→12:58)
--- NOTE | 2020-10-25 07:11 | PM.PN ---
Subjective Subjective: Interval history: Events overnight noted and managed. Sodium drifted up to 121, at which time I gave her 500mL of D5w and 100mL/hr. She then had a sodium of 125mL, at which time I gave 1mcg of DDAVP and 1L of D5w (this therapy is currently on going). Her urine volume is large and appears to be very dilute. She is cognitively the same and apparently at baseline. No overt discomfort. No edema. Vitals/I&O/Wt Last Vital Signs Temp 97.7 F 10/25/20 04:00 Pulse 76 10/25/20 06:00 Resp 14 10/25/20 04:45 BP 87/59 10/25/20 04:45 Pulse Ox 98 10/25/20 04:45 10/24/20 10/25/20 10/25/20 22:59 06:59 14:59 Intake Total 1165.25 / 1165.25 Output Total 1800 / 1800 2200 / 4000 Balance -1800 / -1800 -1034.75 / -2834.75 Weight last 48 hrs Weight 57.238 kg Weight 54.431 kg Physical Exam Narrative: EXAM NARRATIVE: Constitutional: AMS HEENT: Wet mucosa, no jvp, non icteric Lungs: Bilaterally clear without discernible wheeze or rales in all lung zones CVS: S1 S2, no murmurs Abdo: Soft, BS ok Ext 4: Minimal edema, peripheral perfusion with no cyanosis Neurological: Grossly non-focal Urinary Catheter Management^: Sequeira: Cath Placed During This Visit: yes Reason for Continuing Indwelling Catheter: Accurate Measurement of Urinary Output in Critically Ill Patients Urinary Catheter Date of Insertion: 10/24/20 Urinary Catheter Time of Insertion: 14:08 Data : 10/25/20 04:18 10/25/20 04:18 Micro: Microbiology 10/24/20 22:00 Blood Culture - Preliminary Blood SPECIMEN COLLECTED 10/24/20 13:05 Blood Culture - Preliminary Blood SPECIMEN COLLECTED A&P Additional A&P Information 1. Euvolemic hyponatremia Initially she is behaving like she has SIADH, the differential diagnosis of course is adrenal insufficiency. The differential diagnosis is therefore poor recent medication compliance with outpatient hydrocortisone, SIADH from antiseizure therapy, high water intake with free water flushes with low solute intake which of course is very speculative without additional information. Sodium drifted up to 121, at which time I gave her 500mL of D5w and 100mL/hr. She then had a sodium of 125mL, at which time I gave 1mcg of DDAVP and 1L of D5w (this therapy is currently on going). Recheck sodium at 8am and will make further adjustments Goal this morning is 113 and at 1pm it will be 116-118. 2. Seizures Management per neurology, I hear that her history of seizures is hard to control, and that adjusting her seizure medication will be challenging. If hyponatremia becomes recalcitrant, she may be a candidate for tolvaptan therapy so she can remain on a combination of antiseizure therapy. Thank you for consultation, as always it is a pleasure to follow these patients with you Exam and interview performed with aid of bedside RN using telemedicine Time spent 20 min inc > 50% of time in face to face counseling Gregorio Toro MD [facility] [place] [phone] Attestations Medical Necessity Statement*: Eval for hypoNa Coding Level of Care Code Acute Coupon Manifest Clerk for Yolag Nias
[2020-10-25] MEDS: levETIRAcetam 500 mg Tablet 1500 MG PO ×2 (07:50→18:02)
[2020-10-25] MEDS: levothyroxine 100 mcg Tablet PO (07:50)
[2020-10-25] MEDS: lamoTRIgine 100 mg Tablet 400 MG PO ×2 (07:50→18:02)
[2020-10-25] MEDS: CLONazepam 1 mg Tablet PO ×3 (07:50→18:02)
[2020-10-25] MEDS: ofloxacin 0.3% otic 5 mL Btl 5 DROP EAR-BOTH ×2 (09:16→17:47)
--- NOTE | 2020-10-25 09:33 | PC.NURSE ---
lab drawn via iv site lab called with results very abnormal and out of range request redraw
[2020-10-25] MEDS: PHENobarbital 32.4 mg Tablet 64.8 MG PO ×2 (09:38→17:47)
[2020-10-25 10:06] LABS: Glucose Point of Care 141 mg/dL (70-110)
--- NOTE | 2020-10-25 10:28 | PC.NURSE ---
phone message left with family about needing home medication of rufinamide
--- NOTE | 2020-10-25 10:46 | PM.PN ---
Subjective Subjective: Interval history: Overnight patient has remained in the ICU. Her sodium went up to 121 at which she received 500 cc D5W as per the utility worker woolen mill and then repeat sodium was 125 at which time she got 1mcg of DDAVP and 1L of D5w. Patient seems more coherent today on exam and is smiling watching TV. No fevers overnight. Hemodynamics better. Finally was able to get in touch with Charlee who is patient's coguardian along with grandmother. Charlee states she moved out 2 years ago. Grandmother has been suffering from dementia for over a year which has been getting worse with some episodes of grandmother taking patient's medications especially phenobarbital by mistake. Patient is also taken care of by and who lives at home with the patient and grandmother but also has spina bifida herself. Charlee who was struck ovarian states that there have been times when patient has not been getting her medications that she should not be along with a diet. She thinks everything is down to her and including the health of her grandmother and patient herself is and she believes it is possible patient should be replaced at a facility most likely will return home as possible. Vitals/I&O/Wt Last Vital Signs Temp 97.7 F 10/25/20 04:00 Pulse 84 10/25/20 09:00 Resp 15 10/25/20 09:00 BP 98/64 10/25/20 09:00 Pulse Ox 98 10/25/20 09:00 10/24/20 10/25/20 10/25/20 22:59 06:59 14:59 Intake Total 1165.25 / 1165.25 1000 / 1000 Output Total 1800 / 1800 2200 / 4000 Balance -1800 / -1800 -1034.75 / -2834.75 1000 / 1000 Weight last 48 hrs Weight 57.238 kg Weight 54.431 kg Physical Exam Narrative: EXAM NARRATIVE: Young female who is moving her head, spontaneous opening of her eyes, not able to make eye contact a reciprocate to verbal commands No skin rash, diaper rash, pressure injury ulcers Pale complexion and dehydrated Abdomen soft with active bowel sounds, no guarding but unable to assess for any tenderness Spastic quadriplegia Bilateral breath sounds diminished, her breathing is not labored Mild conjunctival hyperemia of the left eye Sequeira catheter draining clear yellow urine No joint swelling Urinary Catheter Management^: Sequeira: Cath Placed During This Visit: yes Reason for Continuing Indwelling Catheter: Accurate Measurement of Urinary Output in Critically Ill Patients Urinary Catheter Date of Insertion: 10/24/20 Urinary Catheter Time of Insertion: 14:08 Data : 10/25/20 04:18 10/25/20 14:55 Micro: Microbiology 10/24/20 22:00 Blood Culture - Preliminary Blood SPECIMEN COLLECTED 10/24/20 13:05 Blood Culture - Preliminary Blood SPECIMEN COLLECTED A&P Assessment and plan (1) Acute hyponatremia: Status: Acute (2) Acute alteration in mental status: Status: Acute (3) Cerebral palsy: Status: Acute (4) Seizure disorder: Status: Acute (5) Panhypopituitarism: Status: Acute (6) Hypothyroidism: Status: Acute (7) Neutropenia: Status: Acute Additional A&P Information 25-year-old female with past medical history of seizure disorder, panhypopituitarism, hypothyroidism, cerebral palsy, chronic hyponatremia presents to the ER today with altered mental status. Altered mental status: Acute on chronic hyponatremia: Most likely patient's altered mental status is because of acute hyponatremia. On last discharge it was thought hyponatremia is because of over free water flushes and she was sent on Nutren 1.54 cans/day with 250 free water flushes with each feeding. 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 Baseline sodium seems to be ranging between 125-130. Sodium on presentation 110. Improved to 121 in 24 hours. Target 1 25-1 28 by next 12 hours. Continue checking sodium levels every 4 hours. For now continue with normal saline at 30 cc/h. TSH normal, A1c appreciated, lipid panel appreciated. Procalcitonin normal. Urine lites showing urine sodium 140. If needed can give 3% normal saline 100 cc boluses. History of difficult to control breakthrough seizures: Continue home antiseizure medications for now. Phenobarbital level normal. Keppra lamotrigine levels awaited. CT results appreciated. Continue with strict bowel regimen with milk of magnesia, lactulose daily. History of panhypopituitarism: Patient takes hydrocortisone 10 mg p.o. twice daily. Given acute hyponatremia and borderline blood pressures for now continue with stress dose steroids. Most likely contrast after steroids were 24 more hours and then come down to home dose of steroids. Cerebral palsy. CODE STATUS: Discussed with her coguardian Charlee. Full code for now. As per Charlee she would want patient to be full code but does not want her to suffer if she ends up getting onto life support. Start patient on tube feeds Ensure Plus 1 can 3 times a day with 100 cc free water flushes. Dietitian consult. Heparin 5000 every 12. Social discord: Charlee who is patient's co-guardian states she moved out 2 years ago. Grandmother has been suffering from dementia for over a year which has been getting worse with some episodes of grandmother taking patient's medications especially phenobarbital by mistake. Patient is also taken care of by and who lives at home with the patient and grandmother but also has spina bifida herself. Charlee who was struck ovarian states that there have been times when patient has not been getting her medications that she should not be along with a diet. She thinks everything is down to her and including the health of her grandmother and patient herself is and she believes it is possible patient should be replaced at a facility most likely will return home as possible. Attestations Medical Necessity Statement*: Patient requires further hospitalization for management of severe acute on chronic hyponatremia, altered mental status, history of panhypopituitarism, cerebral palsy while safe discharge planning is sought. Critical Care Time: Monitoring sodium levels every 4 hours requiring multiple 3%, D5, normal saline boluses being switched around. The high probability of a clinically significant, sudden or life threatening deterioration of the patient's [renal/sodium levels] system(s) required my full and direct attention, intervention and personal management. The critical care time is as shown. This time is in addition to time spent performing any reported procedures but includes the following: [x] Data and vital sign review and interpretation [x] Patient assessment, examination and intervention [x] Documentation [x] Medication orders and management Critical Care Time (min): 90 Coding Level of Care Code Acute Cosmetics Machine Operator for Lobito Paula Diagnoses Acute hyponatremia E87.1 Acute alteration in mental status R41.82 Cerebral palsy G80.9 Seizure disorder G40.909 Panhypopituitarism E23.0 Hypothyroidism E03.9 Neutropenia D70.9
[2020-10-25 10:49] LABS: Anion Gap 13.9 (5-19); Blood Urea Nitrogen 3 mg/dL (6-20); Calcium 8.1 mg/dL (8.5-10.5); Carbon Dioxide 21 mmol/L (22-29); Chloride 90 mmol/L (98-107); Glomerular Filtration Rate 432.8 mL/min (90-130); Glucose 96 mg/dL (65-115); Osmolality Calculated 248 mOsm/kg (285-295); Potassium 3.9 mmol/L (3.5-5.1); Sodium 121 mmol/L (136-145)
[2020-10-25] MEDS: sodium chloride 0.9% 1,000 ML 50 ML IV ×3 (11:56→12:06)
[2020-10-25] MEDS: magnesium hydroxide 30 mL UDC 15 ML PO (11:57)
--- NOTE | 2020-10-25 12:42 | PC.NUTR ---
NUTR TF RECOMMENDATIONS: Jevity on continuous feeding with goal rate of 45 ml/hr providing 1296 kcal (82%), 59 g PRO (128%), and 872 ml fluid (55%)(%NEEDS). Suggest starting TF at 25 ml/hr and increase by 10 ml Q6H as tolerated till goal rate is met. Suggest H2O flushes of 90 ml Q4H to approach fluid needs or per physician. BOLUS: Jevity 4-5 cans daily total through 3 feedings with H2O flushes of 3/4 cup after each feeding.
--- NOTE | 2020-10-25 13:13 | PC.NURSE ---
monitor urine output at this time lab results back Dr babb aware and Dr jackson order noted started d5 w but now on hold per Dr Brenner oral care done repositioned called sister about update and neighbor called about grandmother with no answer
[2020-10-25 15:24] LABS: Sodium 121 mmol/L (136-145)
[2020-10-25] MEDS: RUFINAMIDE 400 MG 1400 EACH PO (18:03)
[2020-10-25 19:37] LABS: Sodium 121 mmol/L (136-145)
[2020-10-25] MEDS: sennosides 8.6 mg Tablet 17.2 MG PO (20:50)
[2020-10-25] MEDS: magnesium hydroxide 30 mL UDC PEG-TUBE (20:50)
[2020-10-26] VITALS (23 sets, daily range): BP systolic 79–103; BP diastolic 51–76; PULSE 50–101; RESP 11–21; TEMP 36.6–36.8; O2SAT 95–100; BMI 20.1
[2020-10-26 00:25] LABS: Sodium 127 mmol/L (136-145)
[2020-10-26 04:27] LABS: Basophils % 0.5 %; Hematocrit 28.9 % (37.0-47.0); Lymphocytes # 1.2 10^3/uL (0.8-4.8); Lymphocytes % 30.5 %; Mean Corpuscular HGB Conc 34.6 g/dL (30.0-36.0); Mean Corpuscular Hemoglobin 31.3 pg (28.0-34.0); Mean Corpuscular Volume 90.3 fL (81-99); Mean Platelet Volume 11.2 fL (7.4-10.4); Monocytes # 0.3 10^3/uL (0.2-0.9); Monocytes % 7.6 %; Neutrophils # 2.48 10^3/uL (1.8-7.7); Neutrophils % 61.2 %; Nucleated Red Blood Cells % 0 %; Platelet Count 249 10^3/cmm (130-400); Red Cell Distribution Width 12.8 % (12.1-15.1); White Blood Count 4.1 10^3/uL (4.0-10.0)
[2020-10-26] MEDS: famotidine 20 mg/2 mL INJ IVP ×2 (04:29→17:32)
[2020-10-26] MEDS: hydrocortisone 100 mg/2 mL SDV 54.43 MG IVP ×2 (04:29→14:01)
[2020-10-26] MEDS: heparin 5,000 unit/mL INJ 1 mL 5000 UNIT SUBCUT ×2 (04:29→17:32)
[2020-10-26 04:45] LABS: Alanine Aminotransferase 27 U/L (0-33); Alkaline Phosphatase 179 IU/L (35-105); Aspartate Amino Transferase 44 U/L (0-32); Blood Urea Nitrogen 3 mg/dL (6-20); Calcium 8.6 mg/dL (8.5-10.5); Carbon Dioxide 23 mmol/L (22-29); Chloride 94 mmol/L (98-107); Globulin 2.7 g/dL (1.3-4.6); Glomerular Filtration Rate 271.1 mL/min (90-130); Glucose 89 mg/dL (65-115); Osmolality Calculated 262 mOsm/kg (285-295); Sodium 128 mmol/L (136-145); Total Bilirubin 0.3 mg/dL (0.15-1.2); Total Protein 6.7 g/dL (6.6-8.7)
[2020-10-26 04:49] LABS: Anion Gap 15.2 (5-19); Potassium 4.2 mmol/L (3.5-5.1)
[2020-10-26] MEDS: dextrose 5 % 500 ML 250 ML IV ×2 (05:22→08:23)
[2020-10-26] MEDS: levETIRAcetam 500 mg Tablet 1500 MG PO ×2 (06:00→18:04)
[2020-10-26] MEDS: lamoTRIgine 100 mg Tablet 400 MG PO ×2 (06:00→18:05)
[2020-10-26] MEDS: CLONazepam 1 mg Tablet PO ×3 (06:00→18:04)
[2020-10-26] MEDS: RUFINAMIDE 400 MG 1400 EACH PO ×2 (06:00→17:51)
[2020-10-26] MEDS: levothyroxine 100 mcg Tablet PO (06:00)
--- NOTE | 2020-10-26 06:18 | PC.NURSE ---
Pt's sodium being closely monitored. Spoke with Dr. Toro and Dr Madera. Doctor's spoke together in order to agree on plan. Free water flushes and D5 ordered this a.m. due to lab results. Recheck labs at 0800.
--- NOTE | 2020-10-26 07:02 | PM.PN ---
Subjective Subjective: Interval history: not verbal. not communicating Medications: Reviewed: Yes Medication Review Details: Current Medications Acetaminophen (Acetaminophen 325 Mg Tablet) 650 mg PO Q6H PRN PRN Reason: Mild/Mod Pain Or Temp >/= 101 Bisacodyl (Bisacodyl 5 Mg Tablet) 10 mg PO DAILY PRN; Protocol PRN Reason: Constipation (see protocol) Clonazepam (Clonazepam 1 Mg Tablet) 1 mg PO TID@07,12,19 [facility] Last Admin: 10/26/20 06:00 Dose: 1 mg Documented by: Famotidine (Famotidine 20 Mg/2 Ml Inj) 20 mg IVP Q12H [facility] Last Admin: 10/26/20 04:29 Dose: 20 mg Documented by: Heparin Sodium (Beef Lung) (Heparin 5,000 Unit/Ml Inj 1 Ml) 5,000 unit SUBCUT Q12H [facility] Last Admin: 10/26/20 04:29 Dose: 5,000 unit Documented by: Hydrocortisone Sodium Succinate (Hydrocortisone 100 Mg/2 Ml Sdv) 54.43 mg 1 mg/kg (54.43 mg) IVP Q6H [facility] Last Admin: 10/26/20 04:29 Dose: 54.43 mg Documented by: Dextrose (D5w) 1,000 mls @ 125 mls/hr IV .Q8H [facility] Lactulose (Lactulose Oral Liq 20 Gm/30 Ml Udc) 10 gm PO DAILY [facility] Lamotrigine (Lamotrigine 100 Mg Tablet) 400 mg PO BID@0700,1900 [facility] Last Admin: 10/26/20 06:00 Dose: 400 mg Documented by: Lanolin (Lanolin Oint 7 Gm) 1 applic TOPICAL PRN PRN PRN Reason: DRYNESS Levetiracetam (Levetiracetam 500 Mg Tablet) 1,500 mg PO BID@0700,1900 [facility] Last Admin: 10/26/20 06:00 Dose: 1,500 mg Documented by: Levothyroxine Sodium (Levothyroxine 100 Mcg Tablet) 100 mcg PO DAILY@0700 [facility] Last Admin: 10/26/20 06:00 Dose: 100 mcg Documented by: Magnesium Hydroxide (Magnesium Hydroxide 30 Ml Udc) 30 ml PEG-TUBE BEDTIME [facility] Last Admin: 10/25/20 20:50 Dose: 30 ml Documented by: Non-Formulary Medication (Rufinamide [Banzel]) 1,400 mg PO BID@0700,1900 [facility] Last Admin: 10/26/20 06:00 Dose: 1,400 mg Documented by: Ofloxacin (Ofloxacin 0.3% Otic 5 Ml Btl) 5 drop EAR-BOTH BID [facility] Last Admin: 10/25/20 17:47 Dose: 5 drop Documented by: Ondansetron HCl (Ondansetron 2 Mg/Ml Sdv 2 Ml) 4 mg IVP Q8H PRN PRN Reason: vomiting, or N/V if npo Phenobarbital (Phenobarbital 32.4 Mg Tablet) 64.8 mg PO BID [facility] Last Admin: 10/25/20 17:47 Dose: 64.8 mg Documented by: Senna (Sennosides 8.6 Mg Tablet) 17.2 mg PO BEDTIME [facility] Last Admin: 10/25/20 20:50 Dose: 17.2 mg Documented by: Vitals/I&O/Wt Last Vital Signs Temp 97.8 F 10/26/20 04:00 Pulse 55 L 10/26/20 05:37 Resp 11 L 10/26/20 04:00 BP 87/65 10/26/20 04:00 Pulse Ox 96 10/26/20 04:00 10/25/20 10/26/20 10/26/20 22:59 06:59 14:59 Intake Total 1095 / 2494.167 400 / 2894.167 Output Total 450 / 2650 1400 / 4050 Balance 645 / -155.833 -1000 / -1155.833 Weight last 48 hrs Weight 57.238 kg Weight 54.431 kg Physical Exam Narrative: EXAM NARRATIVE: general- thin, contracted in bed HEENT: nc/at, eomi, anicteric neck- no jvp, non icteric Lungs: Bilaterally clear without discernible wheeze or rales in all lung zones CVS: S1 S2, no murmurs Abdo: Soft, BS ok, nt, +PEG Ext 4: no edema, contracted skin- no rashes + sood Neurological: quadriplegic, not verbal Urinary Catheter Management^: Sood: Cath Placed During This Visit: yes Reason for Continuing Indwelling Catheter: Accurate Measurement of Urinary Output in Critically Ill Patients Urinary Catheter Date of Insertion: 10/24/20 Urinary Catheter Time of Insertion: 14:08 Data : 10/26/20 04:00 10/26/20 04:00 Micro: Microbiology 10/24/20 22:00 Blood Culture - Preliminary Blood NEGATIVE TO DATE 10/24/20 13:05 Blood Culture - Preliminary Blood NEGATIVE TO DATE 10/24/20 19:06 MRSA Culture - Final Nose A&P Additional A&P Information 1. Euvolemic hyponatremia Initially she is behaving like she has SIADH - elevated ur na- though on ivf. The differential diagnosis is therefore poor recent medication compliance with outpatient hydrocortisone, SIADH from antiseizure therapy, -na increased to 128 quickly- cont free water and d5w- attempt to keep na stable or lower -check bmp every 6 hrs -s/p ddavp 2. Seizures Management per neurology. i will follow labs w/ rN Thank you for consultation, as always it is a pleasure to follow these patients with you Exam and interview performed with aid of bedside RN using telemedicine Time spent 20 min inc > 50% of time in face to face counseling Gregorio Toro MD [facility] [phone] Attestations Medical Necessity Statement*: hyponatremia, AMS Time Spent in Patient Care: 16 - 35 minutes Coding Level of Care Code Acute Reservoir Engineering Manager for Yolag Nisa
[2020-10-26] MEDS: dextrose 5% 1,000 ML 125 ML IV ×2 (07:30→15:37)
[2020-10-26 08:00] LABS: Sodium 127 mmol/L (136-145)
[2020-10-26] MEDS: PHENobarbital 32.4 mg Tablet 64.8 MG PO ×2 (08:23→17:32)
[2020-10-26] MEDS: lactulose oral liq 20 gm/30 mL UDC 10 GM PO (08:23)
[2020-10-26] MEDS: ofloxacin 0.3% otic 5 mL Btl 5 DROP EAR-BOTH ×2 (08:24→17:50)
--- NOTE | 2020-10-26 10:58 | PM.PN ---
Subjective Subjective: Interval history: No acute events overnight. Patient on examination a lot more awake, cheerful, watching cartoons on TV. Urine output, vitals appropriate. Sodium levels today morning has dina up to 127 for which she was started on D5W at last night at 125 cc with free water flushes. Vitals/I&O/Wt Last Vital Signs Temp 98.2 F 10/26/20 08:01 Pulse 72 10/26/20 08:01 Resp 11 L 10/26/20 08:01 BP 103/76 10/26/20 08:01 Pulse Ox 98 10/26/20 08:01 10/25/20 10/26/20 10/26/20 22:59 06:59 14:59 Intake Total 1095 / 2494.167 400 / 2894.167 195.333 / 1954.333 Output Total 450 / 2650 1400 / 4050 Balance 645 / -155.833 -1000 / -9207.339 7533.333 / 1954.333 Weight last 48 hrs Weight 54.93 kg Weight 57.238 kg Weight 54.431 kg Physical Exam Narrative: EXAM NARRATIVE: Young female who is moving her head, spontaneous opening of her eyes, not able to make eye contact a reciprocate to verbal commands No skin rash, diaper rash, pressure injury ulcers Pale complexion and dehydrated Abdomen soft with active bowel sounds, no guarding but unable to assess for any tenderness Spastic quadriplegia Bilateral breath sounds diminished, her breathing is not labored Mild conjunctival hyperemia of the left eye Sequeira catheter draining clear yellow urine No joint swelling Urinary Catheter Management^: Sequeira: Cath Placed During This Visit: yes Reason for Continuing Indwelling Catheter: Accurate Measurement of Urinary Output in Critically Ill Patients Urinary Catheter Date of Insertion: 10/24/20 Urinary Catheter Time of Insertion: 14:08 Data : 10/26/20 04:00 10/26/20 12:20 Micro: Microbiology 10/24/20 22:00 Blood Culture - Preliminary Blood NEGATIVE TO DATE 10/24/20 13:05 Blood Culture - Preliminary Blood NEGATIVE TO DATE 10/24/20 19:06 MRSA Culture - Final Nose A&P Assessment and plan (1) Acute hyponatremia: Status: Acute (2) Acute alteration in mental status: Status: Acute (3) Cerebral palsy: Status: Acute (4) Seizure disorder: Status: Acute (5) Panhypopituitarism: Status: Acute (6) Hypothyroidism: Status: Acute (7) Neutropenia: Status: Acute Additional A&P Information 25-year-old female with past medical history of seizure disorder, panhypopituitarism, hypothyroidism, cerebral palsy, chronic hyponatremia presents to the ER today with altered mental status. Altered mental status: Acute on chronic hyponatremia: Most likely patient's altered mental status is because of acute hyponatremia. On last discharge it was thought hyponatremia is because of over free water flushes and she was sent on Nutren 1.54 cans/day with 250 free water flushes with each feeding. 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 Baseline sodium seems to be ranging between 125-130. Sodium 127 today. Mild overcorrection. Recheck sodium every 6 hours. Target sodium level today around 125. For now continue with D5W at 125 cc/h, free water flushes every 4 hours to 100 cc. TSH normal, A1c appreciated, lipid panel appreciated. Urine lites showing urine sodium 140. Appreciate nephrology recommendations. If needed can give 3% normal saline 100 cc boluses. History of difficult to control breakthrough seizures: Continue home antiseizure medications for now. Phenobarbital level normal. Keppra lamotrigine levels awaited. CT results appreciated. Continue with strict bowel regimen with milk of magnesia, lactulose daily. History of panhypopituitarism: Patient takes hydrocortisone 10 mg p.o. twice daily. Decrease steroids to hydrocortisone 1 mg/kg body weight every 12 hours for now. Will wean down to baseline dose for the next 2 days. Cerebral palsy. CODE STATUS: Discussed with her coguardian Charlee. Full code for now. As per Charlee she would want patient to be full code but does not want her to suffer if she ends up getting onto life support. Start patient on tube feeds Ensure Plus 1 can 3 times a day with 100 cc free water flushes. Dietitian consult. Heparin 5000 every 12. Social discord: Charlee who is patient's co-guardian states she moved out 2 years ago. Grandmother has been suffering from dementia for over a year which has been getting worse with some episodes of grandmother taking patient's medications especially phenobarbital by mistake. Patient is also taken care of by and who lives at home with the patient and grandmother but also has spina bifida herself. Charlee who was struck ovarian states that there have been times when patient has not been getting her medications that she should not be along with a diet. She thinks everything is down to her and including the health of her grandmother and patient herself is and she believes it is possible patient should be replaced at a facility most likely will return home as possible. Discharge planning: Case management involved. Patient would need SNF placement while permanent placement to a [facility] is sought by family and guardian as an outpatient. Attestations Medical Necessity Statement*: Requires further hospitalization for management of altered mental status secondary to acute on chronic hyponatremia requiring frequent sodium checks. Critical Care Time: The high probability of a clinically significant, sudden or life threatening deterioration of the patient's [Renal/Na] system(s) required my full and direct attention, intervention and personal management. The critical care time is as shown. This time is in addition to time spent performing any reported procedures but includes the following: [x] Data and vital sign review and interpretation [x] Patient assessment, examination and intervention [x] Documentation [x] Medication orders and management Critical Care Time (min): 80 Coding Level of Care Code Acute Masonry Contractor Administrator for Lobito Paula Diagnoses Acute hyponatremia E87.1 Acute alteration in mental status R41.82 Cerebral palsy G80.9 Seizure disorder G40.909 Panhypopituitarism E23.0 Hypothyroidism E03.9 Neutropenia D70.9
[2020-10-26 13:05] LABS: Anion Gap 15.6 (5-19); Blood Urea Nitrogen 3 mg/dL (6-20); Calcium 8.4 mg/dL (8.5-10.5); Carbon Dioxide 21 mmol/L (22-29); Chloride 96 mmol/L (98-107); Glomerular Filtration Rate 271.1 mL/min (90-130); Glucose 120 mg/dL (65-115); Osmolality Calculated 266 mOsm/kg (285-295); Potassium 3.6 mmol/L (3.5-5.1); Sodium 129 mmol/L (136-145)
[2020-10-26 13:36] LABS: Cortisol Random 23.55 ug/dL (2.47-19.5)
[2020-10-26 18:25] LABS: Sodium 123 mmol/L (136-145)
[2020-10-26] MEDS: magnesium hydroxide 30 mL UDC PEG-TUBE (20:21)
[2020-10-26] MEDS: sennosides 8.6 mg Tablet 17.2 MG PO (20:21)
[2020-10-26] MEDS: dextrose 5% 1,000 ML 100 ML IV (20:25)
[2020-10-26 22:15] LABS: Sodium 120 mmol/L (136-145)
[2020-10-27] VITALS (26 sets, daily range): BP systolic 84–107; BP diastolic 54–81; PULSE 69–103; RESP 12–30; TEMP 36.1–36.9; O2SAT 93–98
--- NOTE | 2020-10-27 01:15 | PC.NURSE ---
ASSUMING CARE Patient is resting in bed on room air. Patient is nonverbal and does not follow commands. Dextrose 5% running at 200 mL/hour. Awaiting sodium results to call to Dr. Fallon for orders.
[2020-10-27 02:35] LABS: Alanine Aminotransferase 21 U/L (0-33); Albumin Level 3.5 g/dL (3.5-5.2); Alkaline Phosphatase 149 IU/L (35-105); Aspartate Amino Transferase 32 U/L (0-32); Blood Urea Nitrogen 3 mg/dL (6-20); Calcium 7.8 mg/dL (8.5-10.5); Carbon Dioxide 25 mmol/L (22-29); Chloride 87 mmol/L (98-107); Globulin 2.9 g/dL (1.3-4.6); Glomerular Filtration Rate 432.8 mL/min (90-130); Glucose 74 mg/dL (65-115); Osmolality Calculated 245 mOsm/kg (285-295); Phosphorus 2.7 mg/dL (2.5-4.5); Sodium 120 mmol/L (136-145); Total Bilirubin 0.2 mg/dL (0.15-1.2); Total Protein 6.4 g/dL (6.6-8.7)
[2020-10-27] MEDS: hydrocortisone 100 mg/2 mL SDV 54.43 MG IVP ×2 (03:23→17:19)
[2020-10-27] MEDS: famotidine 20 mg/2 mL INJ IVP (04:07)
[2020-10-27] MEDS: sodium chloride 0.9% 1,000 ML 125 ML IV (04:07)
[2020-10-27] MEDS: heparin 5,000 unit/mL INJ 1 mL 5000 UNIT SUBCUT ×2 (04:07→17:18)
[2020-10-27] MEDS: CLONazepam 1 mg Tablet PO ×3 (06:03→19:39)
[2020-10-27] MEDS: RUFINAMIDE 400 MG 1400 EACH PO ×2 (06:03→19:40)
[2020-10-27] MEDS: levETIRAcetam 500 mg Tablet 1500 MG PO ×2 (06:03→19:40)
[2020-10-27] MEDS: levothyroxine 100 mcg Tablet PO (06:03)
[2020-10-27] MEDS: lamoTRIgine 100 mg Tablet 400 MG PO ×2 (06:04→19:39)
--- NOTE | 2020-10-27 07:11 | PM.PN ---
Subjective Subjective: Interval history: now sleepy and lethargic. overnight was awake and interactive. Medications: Reviewed: Yes Medication Review Details: Current Medications Acetaminophen (Acetaminophen 325 Mg Tablet) 650 mg PO Q6H PRN PRN Reason: Mild/Mod Pain Or Temp >/= 101 Bisacodyl (Bisacodyl 5 Mg Tablet) 10 mg PO DAILY PRN; Protocol PRN Reason: Constipation (see protocol) Clonazepam (Clonazepam 1 Mg Tablet) 1 mg PO TID@07,12,19 [facility] Last Admin: 10/27/20 06:03 Dose: 1 mg Documented by: Famotidine (Famotidine 20 Mg/2 Ml Inj) 20 mg IVP Q12H [facility] Last Admin: 10/27/20 04:07 Dose: 20 mg Documented by: Heparin Sodium (Beef Lung) (Heparin 5,000 Unit/Ml Inj 1 Ml) 5,000 unit SUBCUT Q12H [facility] Last Admin: 10/27/20 04:07 Dose: 5,000 unit Documented by: Hydrocortisone Sodium Succinate (Hydrocortisone 100 Mg/2 Ml Sdv) 54.43 mg 1 mg/kg (54.43 mg) IVP Q12H [facility] Last Admin: 10/27/20 03:23 Dose: 54.43 mg Documented by: Sodium Chloride (Sodium Chloride 0.9%) 1,000 mls @ 125 mls/hr IV .Q8H [facility] Last Admin: 10/27/20 04:07 Dose: 125 mls/hr Documented by: Lactulose (Lactulose Oral Liq 20 Gm/30 Ml Udc) 10 gm PO DAILY [facility] Last Admin: 10/26/20 08:23 Dose: 10 gm Documented by: Lamotrigine (Lamotrigine 100 Mg Tablet) 400 mg PO BID@0700,1900 [facility] Last Admin: 10/27/20 06:04 Dose: 400 mg Documented by: Lanolin (Lanolin Oint 7 Gm) 1 applic TOPICAL PRN PRN PRN Reason: DRYNESS Levetiracetam (Levetiracetam 500 Mg Tablet) 1,500 mg PO BID@0700,1900 [facility] Last Admin: 10/27/20 06:03 Dose: 1,500 mg Documented by: Levothyroxine Sodium (Levothyroxine 100 Mcg Tablet) 100 mcg PO DAILY@0700 [facility] Last Admin: 10/27/20 06:03 Dose: 100 mcg Documented by: Magnesium Hydroxide (Magnesium Hydroxide 30 Ml Udc) 30 ml PEG-TUBE BEDTIME [facility] Last Admin: 10/26/20 20:21 Dose: 30 ml Documented by: Non-Formulary Medication (Rufinamide [Banzel]) 1,400 mg PO BID@0700,1900 [facility] Last Admin: 10/27/20 06:03 Dose: 1,400 mg Documented by: Ofloxacin (Ofloxacin 0.3% Otic 5 Ml Btl) 5 drop EAR-BOTH BID [facility] Last Admin: 10/26/20 17:50 Dose: 5 drop Documented by: Ondansetron HCl (Ondansetron 2 Mg/Ml Sdv 2 Ml) 4 mg IVP Q8H PRN PRN Reason: vomiting, or N/V if npo Phenobarbital (Phenobarbital 32.4 Mg Tablet) 64.8 mg PO BID [facility] Last Admin: 10/26/20 17:32 Dose: 64.8 mg Documented by: Senna (Sennosides 8.6 Mg Tablet) 17.2 mg PO BEDTIME [facility] Last Admin: 10/26/20 20:21 Dose: 17.2 mg Documented by: Vitals/I&O/Wt Last Vital Signs Temp 97.0 F L 10/27/20 03:27 Pulse 79 10/27/20 05:34 Resp 17 10/27/20 04:00 BP 100/67 10/27/20 04:00 Pulse Ox 97 10/27/20 04:00 10/26/20 10/27/20 10/27/20 22:59 06:59 14:59 Intake Total 1700 / 4040.333 Output Total 800 / 2800 500 / 3300 Balance 900 / 1240.333 -500 / 740.333 Weight last 48 hrs Weight 57.516 kg Weight 54.93 kg Physical Exam Narrative: EXAM NARRATIVE: general- thin, contracted in bed HEENT: nc/at, eomi, anicteric neck- no jvp, non icteric Lungs: Bilaterally clear without discernible wheeze or rales in all lung zones CVS: S1 S2, no murmurs Abdo: Soft, BS ok, nt, +PEG Ext 4: no edema, contracted skin- no rashes + sood Neurological: quadriplegic, not verbal. per nurse- responsive, smiling, tracking Urinary Catheter Management^: Sood: Cath Placed During This Visit: yes Reason for Continuing Indwelling Catheter: Accurate Measurement of Urinary Output in Critically Ill Patients Urinary Catheter Date of Insertion: 10/24/20 Urinary Catheter Time of Insertion: 14:08 Data : 10/26/20 04:00 10/27/20 01:55 A&P Additional A&P Information 1. Euvolemic hyponatremia Initially she is behaving like she has SIADH - elevated ur na- though on ivf. The differential diagnosis is therefore poor recent medication compliance with outpatient hydrocortisone, SIADH from antiseizure therapy, -na increased to 128 quickly- we got na down to 120 overnight s/p water and d5w and DDAVP -will now attempt to slowly normalize na -monitor for seizures -check bmp every 6 hrs -s/p ddavp 2. Seizures Management per neurology. i will follow labs w/ rN Exam and interview performed with aid of bedside RN using telemedicine Time spent 30 min inc > 50% of time in face to face counseling Attestations Medical Necessity Statement*: AMS, hyponatremia Time Spent in Patient Care: 16 - 35 minutes Coding Level of Care Code Acute Machinery Dismantler for Lobito Paula
--- NOTE | 2020-10-27 09:26 | PC.NURSE ---
IV fluids stopped in prep for sodium IV draw
[2020-10-27] MEDS: PHENobarbital 32.4 mg Tablet 64.8 MG PO ×2 (09:50→17:18)
[2020-10-27] MEDS: lactulose oral liq 20 gm/30 mL UDC 10 GM PO (09:50)
[2020-10-27] MEDS: ofloxacin 0.3% otic 5 mL Btl 5 DROP EAR-BOTH ×2 (09:51→19:38)
[2020-10-27 11:38] LABS: Sodium 116 mmol/L (136-145)
[2020-10-27 13:38] LABS: Osmolality Urine 502 mOsm/kg (50-1200)
--- NOTE | 2020-10-27 13:51 | PC.NUTR ---
Home tube feeding recommendations: Dr. Calderón requesting recommendations for home TF upon discharge. Requested only 3 feedings per day and limited in fluids due to chronic hyponatremia. Recommend Nutren 2.0, 3 cans per day, with 355 ml (1.5 cups) H2O flush per can, to provide 1500 kcal, 63 g protein, 1584 ml H2O. Fluids to be adjusted per MD discretion given hyponatremia. Also recommend to change current TF provision while in facility to an enteral formula, rather than using an oral nutrition supplement (Ensure Plus) for TF.
[2020-10-27 16:03] LABS: Sodium 117 mmol/L (136-145)
--- NOTE | 2020-10-27 16:36 | P.PN_ITS ---
Subjective Subjective: Interval history: No acute events overnight. Patient mildly lethargic on examination today no seizure activity overnight. Seen multiple times today. Vitals/I&O/Wt Last Vital Signs Temp 98.1 F 10/27/20 13:00 Pulse 79 10/27/20 14:00 Resp 19 H 10/27/20 14:00 BP 87/60 10/27/20 14:00 Pulse Ox 95 10/27/20 14:00 10/27/20 10/27/20 10/27/20 06:59 14:59 22:59 Intake Total 680 / 680 340 / 1020 Output Total 500 / 3300 250 / 250 Balance -500 / 740.333 430 / 430 340 / 770 Weight last 48 hrs Weight 57.516 kg Weight 54.93 kg Physical Exam Narrative: EXAM NARRATIVE: Young female who is moving her head, spontaneous opening of her eyes, not able to make eye contact a reciprocate to verbal commands No skin rash, diaper rash, pressure injury ulcers Pale complexion and dehydrated Abdomen soft with active bowel sounds, no guarding but unable to assess for any tenderness Spastic quadriplegia Bilateral breath sounds diminished, her breathing is not labored Mild conjunctival hyperemia of the left eye Sequeira catheter draining clear yellow urine No joint swelling Urinary Catheter Management^: Sequeira: Cath Placed During This Visit: yes Reason for Continuing Indwelling Catheter: Accurate Measurement of Urinary Output in Critically Ill Patients Urinary Catheter Date of Insertion: 10/24/20 Urinary Catheter Time of Insertion: 14:08 Data : 10/26/20 04:00 10/27/20 15:00 A&P Assessment and plan (1) Acute hyponatremia: Status: Acute (2) Acute alteration in mental status: Status: Acute (3) Cerebral palsy: Status: Acute (4) Seizure disorder: Status: Acute (5) Panhypopituitarism: Status: Acute (6) Hypothyroidism: Status: Acute (7) Neutropenia: Status: Acute Additional A&P Information 25-year-old female with past medical history of seizure disorder, panhy popituitarism, hypothyroidism, cerebral palsy, chronic hyponatremia presents to the ER today with altered mental status. Altered mental status: Acute on chronic hyponatremia: Most likely patient's al tered mental status is because of acute hyponatremia. On last discharge it was thought hyponatremia is because of over free water flushes and she was sent on Nutren 1.54 cans/day with 250 free water flushes with each feeding. 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 Baseline sodium seems to be ranging between 125-130. Patient received DDAVP yesterday because of overcorrection. Sodium level has gone up to 116 today. Target around 1 22-1.5. 3% normal saline flushes. Sodium check every 6 hours. Stop IV fluids for now. TSH normal, A1c appreciated, lipid panel appreciated. Urine lites showing urine sodium 140. Appreciate nephrology recommendations. Decrease free water flushes through the PEG tube 200 cc with each meal. History of difficult to control breakthrough seizures: Continue home antiseizure medications for now. Phenobarbital level normal. Keppra lamotrigine levels awaited. CT results appreciated. Continue with strict bowel regimen with milk of magnesi a, lactulose daily. History of panhypopituitarism: Patient takes hydrocortisone 10 mg p.o. twice da chay. Decrease steroids to hydrocortisone 1 mg/kg body weight every 12 hours for now. Will wean down to baseline dose for the next 2 days. Cerebral palsy. CODE STATUS: Discussed with her coguardian Charlee. Full code for now. As per Charlee she would want patient to be full code but does not want her to suffer if she ends up getting onto life support. Start patient on tube feeds Ensure Plus 1 can 3 times a day with 100 cc free water flushes. Dietitian consult. Heparin 5000 every 12. Social discord: Charlee who is patient's co-guardian states she moved out 2 years ago. Grandmother has been suffering from dementia for over a year which has been getting worse with some episodes of grandmother taking patient's medications especially phenobarbital by mistake. Patient is also taken care of by and who lives at home with the patient and grandmother but also has spina bifida herself. Charlee who was struck ovarian states that there have been times when patient has not been getting her medications that she should not be along with a diet. She thinks everything is down to her and including the health of her grandmother and patient herself is and she believes it is possible patient should be replaced at a facility most likely will return home as possible. Discharge planning: Case management involved. Patient would need SNF placement while permanent placement to a penitentiary is sought by family and guardian as an outpatient. Attestations Medical Necessity Statement*: Patient requires further hospitalization for management of acute hyponatremia requiring frequent sodium checks and fluid management Critical Care Time: The high probability of a clinically significant, sudden or life threatening deterioration of the patient's [renal/sodium] system(s) required my full and direct attention, intervention and personal management. The critical care time is as shown. This time is in addition to time spent perfo rming any reported procedures but includes the following: [x] Data and vital sign review and interpretation [x] Patient assessment, examination and intervention [x] Documentation [x] Medication orders and management Critical Care Time (min): 80 Coding Level of Care Code Acute Assistant Producer for Lobito Fwalfredo Diagnoses Acute hyponatremia E87.1 Acute alteration in mental status R41.82 Cerebral palsy G80.9 Seizure disorder G40.909 Panhypopituitarism E23.0 Hypothyroidism E03.9 Neutropenia D70.9
[2020-10-27] MEDS: sodium chloride 1 gm Tablet PEG-TUBE (17:18)
[2020-10-27] MEDS: famotidine 20 mg Tablet PO (17:18)
[2020-10-27] MEDS: sodium chloride 3% 500 ML 50 ML IV (17:19)
[2020-10-27 19:05] LABS: Anion Gap 13.9 (5-19); Blood Urea Nitrogen 3 mg/dL (6-20); Calcium 7.4 mg/dL (8.5-10.5); Carbon Dioxide 20 mmol/L (22-29); Chloride 89 mmol/L (98-107); Glomerular Filtration Rate 432.8 mL/min (90-130); Glucose 85 mg/dL (65-115); Osmolality Calculated 244 mOsm/kg (285-295); Potassium 3.9 mmol/L (3.5-5.1)
[2020-10-27 19:10] LABS: Sodium 119 mmol/L (136-145)
[2020-10-27] MEDS: magnesium hydroxide 30 mL UDC PEG-TUBE (19:41)
[2020-10-27] MEDS: sennosides 8.6 mg Tablet 17.2 MG PO (19:41)
[2020-10-27 20:58] LABS: Blood Urea Nitrogen 2 mg/dL (6-20); Calcium 7.7 mg/dL (8.5-10.5); Carbon Dioxide 21 mmol/L (22-29); Chloride 87 mmol/L (98-107); Glomerular Filtration Rate 432.8 mL/min (90-130); Glucose 82 mg/dL (65-115); Osmolality Calculated 243 mOsm/kg (285-295)
[2020-10-27 20:59] LABS: Anion Gap 15.8 (5-19); Potassium 4.8 mmol/L (3.5-5.1)
[2020-10-27 21:00] LABS: Sodium 119 mmol/L (136-145)
--- NOTE | 2020-10-27 21:09 | PC.NURSE ---
New Orders; RN phoned to update Dr. Mercado on patient's most recent sodium level resulted of 119. New orders given to continue running 3%IVF at 50mL/hr for additional 2 hours. Then, stop fluids, and repeat Chem lab results. RN also instructed to call with results. New orders placed inside chart per MD instructions.
[2020-10-28] VITALS (24 sets, daily range): BP systolic 80–102; BP diastolic 48–71; PULSE 56–101; RESP 0–23; TEMP 36.7–37.2; O2SAT 91–100
[2020-10-28 00:02] LABS: Anion Gap 14.8 (5-19); Blood Urea Nitrogen 3 mg/dL (6-20); Calcium 7.7 mg/dL (8.5-10.5); Carbon Dioxide 20 mmol/L (22-29); Chloride 90 mmol/L (98-107); Glomerular Filtration Rate 432.8 mL/min (90-130); Glucose 110 mg/dL (65-115); Osmolality Calculated 249 mOsm/kg (285-295); Potassium 3.8 mmol/L (3.5-5.1); Sodium 121 mmol/L (136-145)
--- NOTE | 2020-10-28 00:17 | PC.NURSE ---
New Orders; RN phoned Dr. Mercado to update on latest sodium level result of 121 as requested. New orders given to repeat Chem7 with AM draws, and to continue keeping 3% IVF paused at this time.
[2020-10-28] MEDS: hydrocortisone 100 mg/2 mL SDV 54.43 MG IVP ×2 (02:21→14:35)
[2020-10-28] MEDS: heparin 5,000 unit/mL INJ 1 mL 5000 UNIT SUBCUT ×2 (05:06→19:25)
[2020-10-28] MEDS: CLONazepam 1 mg Tablet PO ×3 (06:00→19:39)
[2020-10-28] MEDS: RUFINAMIDE 400 MG 1400 EACH PO ×2 (06:00→19:39)
[2020-10-28] MEDS: lamoTRIgine 100 mg Tablet 400 MG PO ×2 (06:00→19:39)
[2020-10-28] MEDS: levETIRAcetam 500 mg Tablet 1500 MG PO ×2 (06:00→19:38)
[2020-10-28] MEDS: levothyroxine 100 mcg Tablet PO (06:01)
[2020-10-28 06:52] LABS: Alanine Aminotransferase 18 U/L (0-33); Albumin Level 3.4 g/dL (3.5-5.2); Alkaline Phosphatase 150 IU/L (35-105); Anion Gap 11.3 (5-19); Aspartate Amino Transferase 24 U/L (0-32); Blood Urea Nitrogen 3 mg/dL (6-20); Calcium 8.1 mg/dL (8.5-10.5); Carbon Dioxide 24 mmol/L (22-29); Chloride 92 mmol/L (98-107); Globulin 2.8 g/dL (1.3-4.6); Glomerular Filtration Rate 271.1 mL/min (90-130); Glucose 77 mg/dL (65-115); Magnesium 2.2 mg/dL (1.7-2.3); Osmolality Calculated 251 mOsm/kg (285-295); Phosphorus 3.5 mg/dL (2.5-4.5); Potassium 4.3 mmol/L (3.5-5.1); Sodium 123 mmol/L (136-145); Total Bilirubin 0.2 mg/dL (0.15-1.2); Total Protein 6.2 g/dL (6.6-8.7)
--- NOTE | 2020-10-28 06:56 | PC.NURSE ---
Shift Summary; Patient rested well throughout shift. No acute episodes to report. 2400 in pale u/o. Afebrile. Report given to ishmael earl RN.
--- NOTE | 2020-10-28 07:43 | PM.PN ---
Subjective Subjective: Interval history: unable to obtain from poor [place] Medications: Reviewed: Yes Medication Review Details: Current Medications Acetaminophen (Acetaminophen 325 Mg Tablet) 650 mg PO Q6H PRN PRN Reason: Mild/Mod Pain Or Temp >/= 101 Bisacodyl (Bisacodyl 5 Mg Tablet) 10 mg PO DAILY PRN; Protocol PRN Reason: Constipation (see protocol) Clonazepam (Clonazepam 1 Mg Tablet) 1 mg PO TID@07,12,19 [facility] Last Admin: 10/28/20 06:00 Dose: 1 mg Documented by: Famotidine (Famotidine 20 Mg Tablet) 20 mg PO BID [facility] Last Admin: 10/27/20 17:18 Dose: 20 mg Documented by: Heparin Sodium (Beef Lung) (Heparin 5,000 Unit/Ml Inj 1 Ml) 5,000 unit SUBCUT Q12H [facility] Last Admin: 10/28/20 05:06 Dose: 5,000 unit Documented by: Hydrocortisone Sodium Succinate (Hydrocortisone 100 Mg/2 Ml Sdv) 54.43 mg 1 mg/kg (54.43 mg) IVP Q12H [facility] Last Admin: 10/28/20 02:21 Dose: 54.43 mg Documented by: Sodium Chloride (Sodium Chloride 3%) 500 mls @ 50 mls/hr IV .Q10H [facility] Last Admin: 10/28/20 02:22 Dose: Not Given Documented by: Lactulose (Lactulose Oral Liq 20 Gm/30 Ml Udc) 10 gm PO DAILY [facility] Last Admin: 10/27/20 09:50 Dose: 10 gm Documented by: Lamotrigine (Lamotrigine 100 Mg Tablet) 400 mg PO BID@0700,1900 [facility] Last Admin: 10/28/20 06:00 Dose: 400 mg Documented by: Lanolin (Lanolin Oint 7 Gm) 1 applic TOPICAL PRN PRN PRN Reason: DRYNESS Levetiracetam (Levetiracetam 500 Mg Tablet) 1,500 mg PO BID@0700,1900 [facility] Last Admin: 10/28/20 06:00 Dose: 1,500 mg Documented by: Levothyroxine Sodium (Levothyroxine 100 Mcg Tablet) 100 mcg PO DAILY@0700 [facility] Last Admin: 10/28/20 06:01 Dose: 100 mcg Documented by: Magnesium Hydroxide (Magnesium Hydroxide 30 Ml Udc) 30 ml PEG-TUBE BEDTIME [facility] Last Admin: 10/27/20 19:41 Dose: 30 ml Documented by: Non-Formulary Medication (Rufinamide [Banzel]) 1,400 mg PO BID@0700,1900 [facility] Last Admin: 10/28/20 06:00 Dose: 1,400 mg Documented by: Ofloxacin (Ofloxacin 0.3% Otic 5 Ml Btl) 5 drop EAR-BOTH BID [facility] Last Admin: 10/27/20 19:38 Dose: 5 drop Documented by: Ondansetron HCl (Ondansetron 2 Mg/Ml Sdv 2 Ml) 4 mg IVP Q8H PRN PRN Reason: vomiting, or N/V if npo Phenobarbital (Phenobarbital 32.4 Mg Tablet) 64.8 mg PO BID [facility] Last Admin: 10/27/20 17:18 Dose: 64.8 mg Documented by: Senna (Sennosides 8.6 Mg Tablet) 17.2 mg PO BEDTIME [facility] Last Admin: 10/27/20 19:41 Dose: 17.2 mg Documented by: Sodium Chloride (Sodium Chloride 1 Gm Tablet) 1 gm PEG-TUBE BID [facility] Last Admin: 10/27/20 17:18 Dose: 1 gm Documented by: Vitals/I&O/Wt Last Vital Signs Temp 98.4 F 10/28/20 04:00 Pulse 70 10/28/20 07:42 Resp 13 10/28/20 04:00 BP 82/60 10/28/20 04:00 Pulse Ox 95 10/28/20 07:42 10/27/20 10/28/20 10/28/20 22:59 06:59 14:59 Intake Total 777 / 1457 454.167 / 1911.167 Output Total 300 / 550 2200 / 2750 Balance 477 / 907 -1745.833 / -838.833 Weight last 48 hrs Weight 57.892 kg Weight 57.516 kg Physical Exam Narrative: EXAM NARRATIVE: general- thin, contracted in bed HEENT: nc/at, eomi, anicteric neck- no jvp, non icteric Lungs: Bilaterally clear without discernible wheeze or rales in all lung zones CVS: S1 S2, no murmurs Abdo: Soft, BS ok, nt, +PEG Ext 4: no edema, contracted skin- no rashes + sood Neurological: quadriplegic, not verbal. per nurse- responsive, smiling, tracking at times Urinary Catheter Management^: Sood: Cath Placed During This Visit: yes Reason for Continuing Indwelling Catheter: Accurate Measurement of Urinary Output in Critically Ill Patients Urinary Catheter Date of Insertion: 10/24/20 Urinary Catheter Time of Insertion: 14:08 Data : 10/26/20 04:00 10/28/20 06:30 A&P Additional A&P Information 1. Euvolemic hyponatremia Initially she is behaving like she has SIADH - elevated ur na- though on ivf. The differential diagnosis is therefore poor recent medication compliance with outpatient hydrocortisone, SIADH from antiseizure therapy, -na increased to 128 quickly- then back down to 116 -na up to 123 nicely -cont free water restriction and monitor na- aim for slow correction -monitor for seizures -check bmp every 6 hrs -s/p ddavp 2. Seizures Management per neurology. i will follow labs w/ rN Exam and interview performed with aid of bedside RN using telemedicine Time spent 30 min inc > 50% of time in face to face counseling Attestations Medical Necessity Statement*: hyponatremia Time Spent in Patient Care: 16 - 35 minutes Coding Level of Care Code Acute Merchandise Flow Team Leader for Lobito Paula
--- NOTE | 2020-10-28 09:32 | PC.CHAP ---
Pastoral Care Encounter/Spiritual Assessment Type of Contact [] Declined hide and skin classer visit [] Patient/Family/Request visit [] Outpatient visit [] Follow-up visit [] Physician referral [] Code/Alert [x] Routine visit [] Staff referral [] Actively dying [] Patient sleeping [] Family support [] [] Out of room [] Palliative care [] [] Receiving care in room [] Pre-surgical visit [] Trauma [] Long length of stay [x] ICU visit [x] Other: handy capped ... Relational/Emotional Strength [] Patient feels connected with others/family/visitors/staff [] Distress [] Loneliness/isolation [] Abandonment Spirituality of Patient [] Person of Opal [] Attends Latter Day of their [place] [] Believes in Prayer [] Reads Bible or Moravian materials [] There are Spiritual issues to be addressed Sewing Machine Adjuster Interventions [x] Prayer [] Active listening [] Non-anxious presence [] Spiritual/emotional support [] Crisis/trauma care [] Spiritual counseling [] Bereavement support [] Provided bereavement packet [] Provided Bible/devotional materials [] Provided toy/stuffed animal, coloring book to patient or family member [] Provided Communion [] Anointing/[place] [] Salvation [x] Completed spiritual assessment [] Other: Impact on Illness or Injury [] Angry [] Fearful [] Anxious [] Often cries [] Exhaustion [] Unable to work [] Unable to attend taoism [] Unable to walk/stand [] Unable to read [] Unable to drive [] Unable to eat/drink [] Unable to sleep [] Unable to be with family [] Patient intubated [] Other: Summary Time spent with patient
[2020-10-28] MEDS: famotidine 20 mg Tablet PO ×2 (10:45→19:26)
[2020-10-28] MEDS: PHENobarbital 32.4 mg Tablet 64.8 MG PO ×2 (10:45→19:26)
[2020-10-28] MEDS: lactulose oral liq 20 gm/30 mL UDC 10 GM PO (10:45)
[2020-10-28] MEDS: sodium chloride 1 gm Tablet PEG-TUBE (10:45)
[2020-10-28] MEDS: ofloxacin 0.3% otic 5 mL Btl 5 DROP EAR-BOTH ×2 (10:48→19:26)
[2020-10-28 11:37] LABS: Levetiracetam Keppra 15.7 mcg/mL
[2020-10-28 13:06] LABS: Anion Gap 11.5 (5-19); Blood Urea Nitrogen 3 mg/dL (6-20); Calcium 8.5 mg/dL (8.5-10.5); Carbon Dioxide 24 mmol/L (22-29); Chloride 97 mmol/L (98-107); Glomerular Filtration Rate 271.1 mL/min (90-130); Glucose 69 mg/dL (65-115); Osmolality Calculated 263 mOsm/kg (285-295); Potassium 3.5 mmol/L (3.5-5.1); Sodium 129 mmol/L (136-145)
[2020-10-28] MEDS: dextrose 5% 1,000 ML 50 ML IV (14:35)
--- NOTE | 2020-10-28 17:37 | PM.PN ---
Subjective Subjective: Interval history: Somnolent this morning, somewhat more alert this afternoon. Nonverbal, not following commands which is her baseline. Does not appear in distress. Vitals/I&O/Wt Last Vital Signs Temp 98.1 F 10/28/20 12:00 Pulse 92 10/28/20 15:00 Resp 15 10/28/20 15:00 BP 96/67 10/28/20 15:00 Pulse Ox 98 10/28/20 15:00 10/28/20 10/28/20 10/28/20 06:59 14:59 22:59 Intake Total 454.167 / 1911.167 460 / 460 360 / 820 Output Total 2200 / 2750 1000 / 1000 Balance -1745.833 / -838.833 -540 / -540 360 / -180 Weight last 48 hrs Weight 57.892 kg Weight 57.516 kg Physical Exam Const: COMMON NORMALS: no acute distress; negative for patient oriented x3 GENERAL APPEARANCE: not cooperative ORIENTATION/CONSCIOUSNESS: Yes Other orientation findings (Noninteractive at baseline) HENMT: COMMON NORMALS: oropharynx normal Neck/C-Spine: COMMON NORMALS: no JVD Resp: COMMON NORMALS: normal respiratory effort and clear to auscultation bilaterally AUSCULTATION: clear to auscultation bilaterally Cardio: COMMON NORMALS: no JVD, regular rhythm, S1 normal heart sound present, S2 normal heart sound present and No murmurs present (Cardio) RHYTHM: regular rhythm HEART SOUNDS: S1 normal heart sound present and S2 normal heart sound present GI: COMMON NORMALS: Normal to inspection, nondistended, normoactive bowel sounds present, Soft to palpation and non-tender PALPATION: Yes Soft to palpation Extremity: COMMON NORMALS: no joint enlargement and no pedal edema OTHER: Chronic extremity contractures Neuro: COMMON NORMALS: moves all extremities; negative for patient oriented x3 Skin: COMMON NORMALS: no rashes or lesions noted GENERAL SKIN EXAM: no rashes or lesions noted Urinary Catheter Management^: Sequeira: Cath Placed During This Visit: yes Reason for Continuing Indwelling Catheter: Accurate Measurement of Urinary Output in Critically Ill Patients Urinary Catheter Date of Insertion: 10/24/20 Urinary Catheter Time of Insertion: 14:08 Data : 10/26/20 04:00 10/28/20 11:58 A&P Assessment and plan (1) Acute hyponatremia: Sodium with rise up to 129 this afternoon. Discussed with nephrology. 3% saline discontinued. Started on low rate D5W. Recheck sodium. Status: Acute (2) Acute alteration in mental status: Appears may be combination of both changes in sodium level as well as seizures noted at home. This afternoon appears to be improved. Closer to baseline. Status: Acute (3) Cerebral palsy: Status: Acute (4) Seizure disorder: Status: Acute (5) Panhypopituitarism: Status: Acute (6) Hypothyroidism: Status: Acute (7) Neutropenia: Status: Acute Additional A&P Information 25-year-old female with past medical history of seizure disorder, panhypopituitarism, hypothyroidism, cerebral palsy, chronic hyponatremia presents to the ER today with altered mental status. CT results appreciated. Continue with strict bowel regimen with milk of magnesia, lactulose daily. History of panhypopituitarism: Patient takes hydrocortisone 10 mg p.o. twice daily. Wean off hydrocortisone. Monitor blood pressures. Discharge planning: Case management involved. Patient would need SNF placement while permanent placement to a [place] [facility] facility is sought by family and guardian as an outpatient. Attestations Medical Necessity Statement*: Continue admission for assessment of management of acute on chronic hyponatremia. Coding Level of Care Code Acute Forensic Structural Engineer for Lobito Paula Diagnoses Acute hyponatremia E87.1 Acute alteration in mental status R41.82 Cerebral palsy G80.9 Seizure disorder G40.909 Panhypopituitarism E23.0 Hypothyroidism E03.9 Neutropenia D70.9
[2020-10-28 18:35] LABS: Anion Gap 11.7 (5-19); Blood Urea Nitrogen 6 mg/dL (6-20); Calcium 8.4 mg/dL (8.5-10.5); Carbon Dioxide 25 mmol/L (22-29); Chloride 97 mmol/L (98-107); Glomerular Filtration Rate 271.1 mL/min (90-130); Glucose 113 mg/dL (65-115); Osmolality Calculated 268 mOsm/kg (285-295); Potassium 3.7 mmol/L (3.5-5.1); Sodium 130 mmol/L (136-145)
[2020-10-28] MEDS: dextrose 5% 1,000 ML 150 ML IV (19:48)
[2020-10-28] MEDS: magnesium hydroxide 30 mL UDC PEG-TUBE (20:05)
[2020-10-28] MEDS: sennosides 8.6 mg Tablet 17.2 MG PO (20:05)
[2020-10-28] MEDS: artificial tears Op Oint 3.5 gm 1 APPLIC EYE-BOTH (21:28)
[2020-10-28 22:07] LABS: Lamotrigine (Lamictal) Level 6.9 mcg/mL (4.0-18.0)
[2020-10-28 22:23] LABS: Sodium 131 mmol/L (136-145)
--- NOTE | 2020-10-28 22:54 | PC.NURSE ---
New Orders; Dr. Mercado phone to update on patient's latest Chem7 results. New orders received to continue D5W at 150mL/hr, and to redraw Chem7 panel in 4 hours. Orders entered into chart as instructed.
[2020-10-29] VITALS (25 sets, daily range): BP systolic 79–103; BP diastolic 56–71; PULSE 69–109; RESP 13–24; TEMP 36.4–37.2; O2SAT 82–99
[2020-10-29 03:27] LABS: Alanine Aminotransferase 17 U/L (0-33); Albumin Level 3.5 g/dL (3.5-5.2); Alkaline Phosphatase 153 IU/L (35-105); Anion Gap 10.8 (5-19); Aspartate Amino Transferase 21 U/L (0-32); Blood Urea Nitrogen 4 mg/dL (6-20); Calcium 8.2 mg/dL (8.5-10.5); Carbon Dioxide 27 mmol/L (22-29); Chloride 95 mmol/L (98-107); Globulin 2.8 g/dL (1.3-4.6); Glomerular Filtration Rate 271.1 mL/min (90-130); Glucose 89 mg/dL (65-115); Magnesium 2.4 mg/dL (1.7-2.3); Osmolality Calculated 264 mOsm/kg (285-295); Potassium 3.8 mmol/L (3.5-5.1); Sodium 129 mmol/L (136-145); Total Bilirubin 0.2 mg/dL (0.15-1.2); Total Protein 6.3 g/dL (6.6-8.7)
[2020-10-29] MEDS: heparin 5,000 unit/mL INJ 1 mL 5000 UNIT SUBCUT ×2 (04:23→16:12)
[2020-10-29] MEDS: lamoTRIgine 100 mg Tablet 400 MG PO ×2 (05:55→20:59)
[2020-10-29] MEDS: hydrocortisone 100 mg/2 mL SDV 25 MG IVP ×2 (05:55→18:59)
[2020-10-29] MEDS: levothyroxine 100 mcg Tablet PO (05:56)
[2020-10-29] MEDS: CLONazepam 1 mg Tablet PO ×3 (06:00→19:00)
[2020-10-29] MEDS: levETIRAcetam 500 mg Tablet 1500 MG PO ×2 (06:00→20:59)
[2020-10-29] MEDS: RUFINAMIDE 400 MG 1400 EACH PO ×2 (06:01→20:59)
[2020-10-29 06:29] LABS: Anion Gap 8.6 (5-19); Blood Urea Nitrogen 4 mg/dL (6-20); Calcium 8.2 mg/dL (8.5-10.5); Carbon Dioxide 28 mmol/L (22-29); Chloride 94 mmol/L (98-107); Glomerular Filtration Rate 271.1 mL/min (90-130); Glucose 98 mg/dL (65-115); Osmolality Calculated 261 mOsm/kg (285-295); Potassium 3.6 mmol/L (3.5-5.1); Sodium 127 mmol/L (136-145)
--- NOTE | 2020-10-29 06:55 | P.PN_ITS ---
Subjective Subjective: Interval history: more alert and interactive. smiling, moving Medications: Reviewed: Yes Medication Review Details: Current Medications Acetaminophen (Acetaminophen 325 Mg Tablet) 650 mg PO Q6H PRN PRN Reason: Mild/Mod Pain Or Temp >/= 101 Artificial Tears (Artificial Tears Op Oint 3.5 Gm) 1 applic EYE-BOTH BEDTIME [facility] Last Admin: 10/28/20 21:28 Dose: 1 applic Documented by: Bisacodyl (Bisacodyl 5 Mg Tablet) 10 mg PO DAILY PRN; Protocol PRN Reason: Constipation (see protocol) Clonazepam (Clonazepam 1 Mg Tablet) 1 mg PO TID@07,12,19 [facility] Last Admin: 10/29/20 06:00 Dose: 1 mg Documented by: Famotidine (Famotidine 20 Mg Tablet) 20 mg PO BID [facility] Last Admin: 10/28/20 19:26 Dose: 20 mg Documented by: Heparin Sodium (Beef Lung) (Heparin 5,000 Unit/Ml Inj 1 Ml) 5,000 unit SUBCUT Q12H [facility] Last Admin: 10/29/20 04:23 Dose: 5,000 unit Documented by: Hydrocortisone Sodium Succinate (Hydrocortisone 100 Mg/2 Ml Sdv) 25 mg IVP Q12H [facility] Last Admin: 10/29/20 05:55 Dose: 25 mg Documented by: Dextrose (D5w) 1,000 mls @ 50 mls/hr IV .Q20H [facility] Last Infusion: 10/29/20 00:28 Dose: Infused Documented by: Dextrose (D5w) 1,000 mls @ 150 mls/hr IV .Q6H40M [facility] Last Infusion: 10/29/20 00:28 Dose: 150 mls/hr Documented by: Lactulose (Lactulose Oral Liq 20 Gm/30 Ml Udc) 10 gm PO DAILY [facility] Last Admin: 10/28/20 10:45 Dose: 10 gm Documented by: Lamotrigine (Lamotrigine 100 Mg Tablet) 400 mg PO BID@0700,1900 [facility] Last Admin: 10/29/20 05:55 Dose: 400 mg Documented by: Lanolin (Lanolin Oint 7 Gm) 1 applic TOPICAL PRN PRN PRN Reason: DRYNESS Levetiracetam (Levetiracetam 500 Mg Tablet) 1,500 mg PO BID@0700,1900 [facility] Last Admin: 10/29/20 06:00 Dose: 1,500 mg Documented by: Levothyroxine Sodium (Levothyroxine 100 Mcg Tablet) 100 mcg PO DAILY@0700 [facility] Last Admin: 10/29/20 05:56 Dose: 100 mcg Documented by: Magnesium Hydroxide (Magnesium Hydroxide 30 Ml Udc) 30 ml PEG-TUBE BEDTIME [facility] Last Admin: 10/28/20 20:05 Dose: 30 ml Documented by: Non-Formulary Medication (Rufinamide [Banzel]) 1,400 mg PO BID@0700,1900 [facility] Last Admin: 10/29/20 06:01 Dose: 1,400 mg Documented by: Ofloxacin (Ofloxacin 0.3% Otic 5 Ml Btl) 5 drop EAR-BOTH BID [facility] Last Admin: 10/28/20 19:26 Dose: 5 drop Documented by: Ondansetron HCl (Ondansetron 2 Mg/Ml Sdv 2 Ml) 4 mg IVP Q8H PRN PRN Reason: vomiting, or N/V if npo Phenobarbital (Phenobarbital 32.4 Mg Tablet) 64.8 mg PO BID [facility] Last Admin: 10/28/20 19:26 Dose: 64.8 mg Documented by: Senna (Sennosides 8.6 Mg Tablet) 17.2 mg PO BEDTIME [facility] Last Admin: 10/28/20 20:05 Dose: 17.2 mg Documented by: Vitals/I&O/Wt Last Vital Signs Temp 98.2 F 10/29/20 04:00 Pulse 74 10/29/20 06:00 Resp 24 H 10/29/20 04:00 BP 89/62 10/29/20 04:00 Pulse Ox 98 10/29/20 03:00 10/28/20 10/28/20 10/29/20 14:59 22:59 06:59 Intake Total 460 / 460 1040.333 / 1500.333 889.167 / 2389.500 Output Total 1000 / 1000 1200 / 2200 1550 / 3750 Balance -540 / -540 -159.667 / -699.667 -660.833 / -1360.500 Weight last 48 hrs Weight 57.264 kg Weight 57.892 kg Physical Exam Narrative: EXAM NARRATIVE: general- thin, contracted in bed HEENT: nc/at, eomi, anicteric neck- no jvp, non icteric Lungs: Bilaterally clear without discernible wheeze or rales in all lung zones CVS: S1 S2, no murmurs Abdo: Soft, BS ok, nt, +PEG Ext 4: no edema, contracted skin- no rashes + sood Neurological: quadriplegic, not verbal. + responsive, smiling, tracking at times Urinary Catheter Management^: Sood: Cath Placed During This Visit: yes Reason for Continuing Indwelling Catheter: Accurate Measurement of Urinary Output in Critically Ill Patients Urinary Catheter Date of Insertion: 10/24/20 Urinary Catheter Time of Insertion: 14:08 Data : 10/26/20 04:00 10/29/20 06:00 A&P Additional A&P Information 1. Euvolemic hyponatremia Initially she is behaving like she has SIADH - elevated ur na- though on ivf. The differential diagnosis is therefore poor recent medication compliance with outpatient hydrocortisone, SIADH from antiseizure therapy, -na increased to 128 quickly- then back down to 116 -na up to 123, then to 131 - now 127 - monitor on d5w at 75 ml/hr -cont free water restriction and monitor na- aim for slow correction -monitor for seizures -check bmp every 6 hrs -s/p ddavp 2. Seizures Management per neurology. i will follow labs w/ rN Exam and interview performed with aid of bedside RN using telemedicine Time spent 30 min inc > 50% of time in face to face counseling Attestations Medical Necessity Statement*: hyponatremia Time Spent in Patient Care: 16 - 35 minutes Coding Level of Care Code Acute Industrial Refrigeration Mechanic for Lobito Paula
[2020-10-29] MEDS: dextrose 5% 1,000 ML 75 ML IV (08:00)
--- NOTE | 2020-10-29 09:39 | PC.CHAP ---
Pastoral Care Encounter/Spiritual Assessment Type of Contact [] Declined seam sewer visit [] Patient/Family/Request visit [] Outpatient visit [] Follow-up visit [] Physician referral [] Code/Alert [x] Routine visit [] Staff referral [] Actively dying [] Patient sleeping [] Family support [] [] Out of room [] Palliative care [] [] Receiving care in room [] Pre-surgical visit [] Trauma [] Long length of stay [x] ICU visit [] Other: Relational/Emotional Strength [] Patient feels connected with others/family/visitors/staff [] Distress [] Loneliness/isolation [] Abandonment Spirituality of Patient [] Person of Opal [] Attends Islam of their Opal [] Believes in Prayer [] Reads Bible or Yazidi materials [] There are Spiritual issues to be addressed Sheet Metal Helper Interventions [x] Prayer [] Active listening [] Non-anxious presence [] Spiritual/emotional support [] Crisis/trauma care [] Spiritual counseling [] Bereavement support [] Provided bereavement packet [] Provided Bible/devotional materials [] Provided toy/stuffed animal, coloring book to patient or family member [] Provided Communion [] Anointing/[place] [] Salvation [x] Completed spiritual assessment [] Other: Impact on Illness or Injury [] Angry [] Fearful [] Anxious [] Often cries [] Exhaustion [] Unable to work [] Unable to attend tenriism [] Unable to walk/stand [] Unable to read [] Unable to drive [] Unable to eat/drink [] Unable to sleep [] Unable to be with family [] Patient intubated [] Other: Summary Time spent with patient
[2020-10-29] MEDS: lactulose oral liq 20 gm/30 mL UDC 10 GM PO (10:53)
[2020-10-29] MEDS: famotidine 20 mg Tablet PO ×2 (10:54→19:00)
[2020-10-29] MEDS: ofloxacin 0.3% otic 5 mL Btl 5 DROP EAR-BOTH ×2 (10:54→19:01)
[2020-10-29 13:19] LABS: Anion Gap 11.8 (5-19); Blood Urea Nitrogen 4 mg/dL (6-20); Calcium 8.7 mg/dL (8.5-10.5); Carbon Dioxide 27 mmol/L (22-29); Chloride 96 mmol/L (98-107); Glomerular Filtration Rate 271.1 mL/min (90-130); Glucose 98 mg/dL (65-115); Osmolality Calculated 269 mOsm/kg (285-295); Potassium 3.8 mmol/L (3.5-5.1); Sodium 131 mmol/L (136-145)
--- NOTE | 2020-10-29 14:38 | PC.SOCIAL ---
IMM Updated Updated pt's family via phone on Pg 2 IMM. No questions voiced. Provided pt a copy. Signed, dated, & timed copy in chart.
--- NOTE | 2020-10-29 15:13 | PM.PN ---
Subjective Subjective: Interval history: She is more awake today, nonverbal, noncommunicative, not following commands as per her baseline. Vitals/I&O/Wt Last Vital Signs Temp 97.8 F 10/29/20 08:00 Pulse 79 10/29/20 13:00 Resp 17 10/29/20 13:00 BP 83/56 10/29/20 13:00 Pulse Ox 98 10/29/20 13:00 10/29/20 10/29/20 10/29/20 06:59 14:59 22:59 Intake Total 889.167 / 2389.500 1307.5 / 1307.5 Output Total 1550 / 3750 1000 / 1000 Balance -660.833 / -1360.500 307.5 / 307.5 Weight last 48 hrs Weight 57.264 kg Weight 57.892 kg Physical Exam Const: COMMON NORMALS: no acute distress GENERAL APPEARANCE: not cooperative ORIENTATION/CONSCIOUSNESS: Yes Other orientation findings (Noninteractive at baseline) HENMT: COMMON NORMALS: oropharynx normal Neck/C-Spine: COMMON NORMALS: no JVD Resp: COMMON NORMALS: normal respiratory effort and clear to auscultation bilaterally AUSCULTATION: clear to auscultation bilaterally Cardio: COMMON NORMALS: no JVD, regular rhythm, S1 normal heart sound present, S2 normal heart sound present and No murmurs present (Cardio) RHYTHM: regular rhythm HEART SOUNDS: S1 normal heart sound present and S2 normal heart sound present GI: COMMON NORMALS: Normal to inspection, nondistended, normoactive bowel sounds present, Soft to palpation and non-tender PALPATION: Yes Soft to palpation Extremity: COMMON NORMALS: no joint enlargement and no pedal edema OTHER: Chronic extremity contractures Neuro: COMMON NORMALS: moves all extremities Skin: COMMON NORMALS: no rashes or lesions noted GENERAL SKIN EXAM: no rashes or lesions noted Urinary Catheter Management^: Sequeira: Cath Placed During This Visit: yes Reason for Continuing Indwelling Catheter: Accurate Measurement of Urinary Output in Critically Ill Patients Urinary Catheter Date of Insertion: 10/24/20 Urinary Catheter Time of Insertion: 14:08 Data : 10/26/20 04:00 10/29/20 12:15 A&P Assessment and plan (1) Acute hyponatremia: Sodium up to 131 today. Continue gentle hydration with D5W. For now continues with free water flushes of 100 mL 4 times daily. Would not increase this any further until sodium can be reassessed after IV D5W discontinued. Recheck sodium level. For now hold off tapering of hydrocortisone any further due to soft blood pressures. Status: Acute (2) Acute alteration in mental status: Appears closer to baseline. Appears may be combination of both changes in sodium level as well as seizures noted at home. This afternoon appears to be improved. Status: Acute (3) Cerebral palsy: Tube feeds adjusted as per nutrition recommendations. Status: Acute (4) Seizure disorder: Status: Acute (5) Panhypopituitarism: Continue follow-up with endocrinology. Status: Acute (6) Hypothyroidism: Status: Acute (7) Neutropenia: Status: Acute Additional A&P Information 25-year-old female with past medical history of seizure disorder, panhypopituitarism, hypothyroidism, cerebral palsy, chronic hyponatremia presents to the ER today with altered mental status. CT results appreciated. Continue with strict bowel regimen with milk of magnesia, lactulose daily. History of panhypopituitarism: Patient takes hydrocortisone 10 mg p.o. twice daily. Wean off hydrocortisone. Monitor blood pressures. Discharge planning: Case management involved. Patient would need SNF placement while permanent placement to a correction is sought by family and guardian as an outpatient. Attestations Medical Necessity Statement*: Continue admission for acute on chronic hyponatremia. Coding Level of Care Code Acute Instructor Pilot for [facility] Diagnoses Acute hyponatremia E87.1 Acute alteration in mental status R41.82 Cerebral palsy G80.9 Seizure disorder G40.909 Panhypopituitarism E23.0 Hypothyroidism E03.9 Neutropenia D70.9
--- NOTE | 2020-10-29 15:15 | PC.NUTR ---
Nutrition reassessment: Recommend to increase current TF provision to better meet estimated nutritional needs. Preferable to utilize an enteral formula, not the oral supplement currently being used. Recommend Jevity 1.2, 1245 ml/day, to provide 1494 kcal, 69 g protein, and 1021 mL H2O, with H2O flushes per MD discretion. If QID, approx. 311 ml per feeding. Provided recommendations to Dr. Moreno by phone who stated will order at this time. Noted previous recommendations for Nutren TID as home tube feeding no longer warranted, as pt anticipated to go to [facility]. Jevity 1.2 likely available at [facility].
[2020-10-29] MEDS: sodium chloride 0.45% 1,000 ML 100 ML IV (16:13)
[2020-10-29 18:19] LABS: Anion Gap 10.9 (5-19); Blood Urea Nitrogen 5 mg/dL (6-20); Calcium 8.3 mg/dL (8.5-10.5); Carbon Dioxide 27 mmol/L (22-29); Chloride 95 mmol/L (98-107); Glomerular Filtration Rate 271.1 mL/min (90-130); Glucose 78 mg/dL (65-115); Osmolality Calculated 264 mOsm/kg (285-295); Potassium 3.9 mmol/L (3.5-5.1); Sodium 129 mmol/L (136-145)
--- NOTE | 2020-10-29 19:00 | PC.NURSE ---
Bedside Rounding During rounding 1700 Na+ level came back at 129. Day nurse Sarai, reported results to Dr. Mercado by phone and received telephone orders to keep 1/2 NS running at 100ml/hr and to keep tube feeding orders as Ensure 1 Can TID with 50ml water flush after each feed and meds. Received orders for BMP at 2300.
[2020-10-29] MEDS: magnesium hydroxide 30 mL UDC PEG-TUBE (20:59)
[2020-10-29] MEDS: artificial tears Op Oint 3.5 gm 1 APPLIC EYE-BOTH (21:00)
[2020-10-29] MEDS: sennosides 8.6 mg Tablet 17.2 MG PO (21:00)
--- NOTE | 2020-10-29 21:34 | PC.NURSE ---
240ml of Ensure given by gravity via button peg tube followed by 50ml free water. HOb at 45degrees. Tolerated well.
[2020-10-29 23:28] LABS: Anion Gap 14.8 (5-19); Blood Urea Nitrogen 5 mg/dL (6-20); Calcium 8.5 mg/dL (8.5-10.5); Carbon Dioxide 23 mmol/L (22-29); Chloride 96 mmol/L (98-107); Glomerular Filtration Rate 194.5 mL/min (90-130); Glucose 133 mg/dL (65-115); Osmolality Calculated 269 mOsm/kg (285-295); Potassium 3.8 mmol/L (3.5-5.1); Sodium 130 mmol/L (136-145)
[2020-10-30] VITALS (24 sets, daily range): BP systolic 71–142; BP diastolic 35–90; PULSE 59–108; RESP 13–32; TEMP 36.5–37.2; O2SAT 93–98
--- NOTE | 2020-10-30 02:17 | PC.NURSE ---
150ml free water flush given per button tube at this time.
[2020-10-30] MEDS: hydrocortisone 100 mg/2 mL SDV 25 MG IVP ×2 (05:13→19:05)
[2020-10-30] MEDS: heparin 5,000 unit/mL INJ 1 mL 5000 UNIT SUBCUT ×2 (05:13→19:06)
[2020-10-30] MEDS: levETIRAcetam 500 mg Tablet 1500 MG PO ×2 (06:01→19:36)
[2020-10-30] MEDS: RUFINAMIDE 400 MG 1400 EACH PO ×2 (06:01→19:36)
[2020-10-30] MEDS: lamoTRIgine 100 mg Tablet 400 MG PO ×2 (06:01→19:36)
[2020-10-30 06:02] LABS: Alanine Aminotransferase 19 U/L (0-33); Albumin Level 3.9 g/dL (3.5-5.2); Alkaline Phosphatase 159 IU/L (35-105); Aspartate Amino Transferase 26 U/L (0-32); Blood Urea Nitrogen 7 mg/dL (6-20); Calcium 8.6 mg/dL (8.5-10.5); Carbon Dioxide 26 mmol/L (22-29); Chloride 97 mmol/L (98-107); Glomerular Filtration Rate 194.5 mL/min (90-130); Glucose 77 mg/dL (65-115); Osmolality Calculated 273 mOsm/kg (285-295); Sodium 133 mmol/L (136-145); Total Bilirubin 0.2 mg/dL (0.15-1.2); Total Protein 6.9 g/dL (6.6-8.7)
[2020-10-30] MEDS: CLONazepam 1 mg Tablet PO ×3 (06:02→19:06)
[2020-10-30] MEDS: levothyroxine 100 mcg Tablet PO (06:02)
[2020-10-30 06:04] LABS: Anion Gap 14.4 (5-19); Potassium 4.4 mmol/L (3.5-5.1)
--- NOTE | 2020-10-30 06:56 | P.PN_ITS ---
Subjective Subjective: Interval history: not verbal. awake and interactive. not able to obtain a ROS due to poor MS Medications: Reviewed: Yes Medication Review Details: Current Medications Acetaminophen (Acetaminophen 325 Mg Tablet) 650 mg PO Q6H PRN PRN Reason: Mild/Mod Pain Or Temp >/= 101 Artificial Tears (Artificial Tears Op Oint 3.5 Gm) 1 applic EYE-BOTH BEDTIME [facility] Last Admin: 10/29/20 21:00 Dose: 1 applic Documented by: Bisacodyl (Bisacodyl 5 Mg Tablet) 10 mg PO DAILY PRN; Protocol PRN Reason: Constipation (see protocol) Clonazepam (Clonazepam 1 Mg Tablet) 1 mg PO TID@07,12,19 [facility] Last Admin: 10/30/20 06:02 Dose: 1 mg Documented by: Famotidine (Famotidine 20 Mg Tablet) 20 mg PO BID [facility] Last Admin: 10/29/20 19:00 Dose: 20 mg Documented by: Heparin Sodium (Beef Lung) (Heparin 5,000 Unit/Ml Inj 1 Ml) 5,000 unit SUBCUT Q12H [facility] Last Admin: 10/30/20 05:13 Dose: 5,000 unit Documented by: Hydrocortisone Sodium Succinate (Hydrocortisone 100 Mg/2 Ml Sdv) 25 mg IVP Q12H [facility] Last Admin: 10/30/20 05:13 Dose: 25 mg Documented by: Sodium Chloride (Sodium Chloride 0.45%) 1,000 mls @ 60 mls/hr IV .[id number] [facility] Last Infusion: 10/29/20 23:45 Dose: Infused Documented by: Dextrose (D5w) 1,000 mls @ 75 mls/hr IV .[id number] [facility] Lactulose (Lactulose Oral Liq 20 Gm/30 Ml Udc) 10 gm PO DAILY [facility] Last Admin: 10/29/20 10:53 Dose: 10 gm Documented by: Lamotrigine (Lamotrigine 100 Mg Tablet) 400 mg PO BID@0700,1900 [facility] Last Admin: 10/30/20 06:01 Dose: 400 mg Documented by: Lanolin (Lanolin Oint 7 Gm) 1 applic TOPICAL PRN PRN PRN Reason: DRYNESS Levetiracetam (Levetiracetam 500 Mg Tablet) 1,500 mg PO BID@0700,1900 [facility] Last Admin: 10/30/20 06:01 Dose: 1,500 mg Documented by: Levothyroxine Sodium (Levothyroxine 100 Mcg Tablet) 100 mcg PO DAILY@0700 [facility] Last Admin: 10/30/20 06:02 Dose: 100 mcg Documented by: Magnesium Hydroxide (Magnesium Hydroxide 30 Ml Udc) 30 ml PEG-TUBE BEDTIME [facility] Last Admin: 10/29/20 20:59 Dose: 30 ml Documented by: Non-Formulary Medication (Rufinamide [Banzel]) 1,400 mg PO BID@0700,1900 [facility] Last Admin: 10/30/20 06:01 Dose: 1,400 mg Documented by: Ofloxacin (Ofloxacin 0.3% Otic 5 Ml Btl) 5 drop EAR-BOTH BID [facility] Last Admin: 10/29/20 19:01 Dose: 5 drop Documented by: Ondansetron HCl (Ondansetron 2 Mg/Ml Sdv 2 Ml) 4 mg IVP Q8H PRN PRN Reason: vomiting, or N/V if npo Senna (Sennosides 8.6 Mg Tablet) 17.2 mg PO BEDTIME [facility] Last Admin: 10/29/20 21:00 Dose: 17.2 mg Documented by: Vitals/I&O/Wt Last Vital Signs Temp 97.7 F 10/30/20 06:00 Pulse 82 10/30/20 06:00 Resp 18 10/30/20 06:00 BP 81/59 10/30/20 06:00 Pulse Ox 93 10/30/20 06:00 10/29/20 10/29/20 10/30/20 14:59 22:59 06:59 Intake Total 1307.5 / 1307.5 660 / 1967.5 1053.333 / 3020.833 Output Total 1000 / 1000 2900 / 3900 900 / 4800 Balance 307.5 / 307.5 -2240 / -1932.5 153.333 / -1779.167 Weight last 48 hrs Weight 56.382 kg Weight 57.264 kg Physical Exam Narrative: EXAM NARRATIVE: general- thin, contracted in bed HEENT: nc/at, eomi, anicteric neck- no jvp, non icteric Lungs: Bilaterally clear without discernible wheeze or rales in all lung zones CVS: S1 S2, no murmurs Abdo: Soft, BS ok, nt, +PEG Ext 4: no edema, contracted skin- no rashes + sood Neurological: quadriplegic, not verbal. + responsive, smiling, tracking at times Urinary Catheter Management^: Sood: Cath Placed During This Visit: yes Reason for Continuing Indwelling Catheter: Accurate Measurement of Urinary Output in Critically Ill Patients Urinary Catheter Date of Insertion: 10/24/20 Urinary Catheter Time of Insertion: 14:08 Data : 10/26/20 04:00 10/30/20 04:43 Micro: Microbiology 10/24/20 22:00 Blood Culture - Final Blood NO GROWTH AFTER 5 DAYS 10/24/20 13:05 Blood Culture - Final Blood NO GROWTH AFTER 5 DAYS A&P Additional A&P Information 1. Euvolemic hyponatremia Initially she is behaving like she has SIADH - elevated ur na- though on ivf. The differential diagnosis is therefore poor recent medication compliance with outpatient hydrocortisone, SIADH from antiseizure therapy, -na increased to 128 quickly- then back down to 116 -na up to 123, then to 131 - now 127 -back to 133 -cont d5w at 75 ml/hr and free boluses - monitor na- aim for slow correction -monitor for seizures -check bmp every 8 hrs -s/p ddavp 2. Seizures Management per neurology. i will follow labs w/ rN Exam and interview performed with aid of bedside RN using telemedicine Time spent 30 min inc > 50% of time in face to face counseling Attestations Medical Necessity Statement*: AMS, hyponatremia Time Spent in Patient Care: 16 - 35 minutes Coding Level of Care Code Acute Horticulturalist for [facility]
[2020-10-30] MEDS: dextrose 5% 1,000 ML 75 ML IV (07:41)
--- NOTE | 2020-10-30 09:15 | PC.CHAP ---
Pastoral Care Encounter/Spiritual Assessment Type of Contact [] Declined weekday babysitter visit [] Patient/Family/Request visit [] Outpatient visit [] Follow-up visit [] Physician referral [] Code/Alert [x] Routine visit [] Staff referral [] Actively dying [] Patient sleeping [] Family support [] [] Out of room [] Palliative care [] [] Receiving care in room [] Pre-surgical visit [] Trauma [] Long length of stay [x] ICU visit [x] Other: resting very peacefully this am Relational/Emotional Strength [] Patient feels connected with others/family/visitors/staff [] Distress [] Loneliness/isolation [] Abandonment Spirituality of Patient [] Person of Opal [] Attends Mormonism of their [place] [] Believes in Prayer [] Reads Bible or Congregation materials [] There are Spiritual issues to be addressed Utility Mechanic Interventions [x] Prayer [] Active listening [] Non-anxious presence [] Spiritual/emotional support [] Crisis/trauma care [] Spiritual counseling [] Bereavement support [] Provided bereavement packet [] Provided Bible/devotional materials [] Provided toy/stuffed animal, coloring book to patient or family member [] Provided Communion [] Anointing/[place] [] Salvation [x] Completed spiritual assessment [] Other: Impact on Illness or Injury [] Angry [] Fearful [] Anxious [] Often cries [] Exhaustion [] Unable to work [] Unable to attend yazidism [] Unable to walk/stand [] Unable to read [] Unable to drive [] Unable to eat/drink [] Unable to sleep [] Unable to be with family [] Patient intubated [] Other: Summary Time spent with patient
[2020-10-30] MEDS: famotidine 20 mg Tablet PO ×2 (09:19→19:05)
[2020-10-30] MEDS: lactulose oral liq 20 gm/30 mL UDC 10 GM PO (09:19)
[2020-10-30] MEDS: ofloxacin 0.3% otic 5 mL Btl 5 DROP EAR-BOTH ×2 (09:19→19:06)
--- NOTE | 2020-10-30 10:57 | PM.PN ---
Subjective Subjective: Interval history: Awake, alert, nonverbal, noninteractive as per her baseline. Spontaneously nodding her head. Vitals/I&O/Wt Last Vital Signs Temp 98.1 F 10/30/20 08:00 Pulse 92 10/30/20 08:00 Resp 14 10/30/20 08:00 BP 75/57 10/30/20 08:00 Pulse Ox 96 10/30/20 07:00 10/29/20 10/30/20 10/30/20 22:59 06:59 14:59 Intake Total 660 / 1967.5 1053.333 / 3020.833 340 / 340 Output Total 2900 / 3900 900 / 4800 Balance -2240 / -1932.5 153.333 / -1779.167 340 / 340 Weight last 48 hrs Weight 56.382 kg Weight 57.264 kg Physical Exam Const: COMMON NORMALS: no acute distress GENERAL APPEARANCE: not cooperative ORIENTATION/CONSCIOUSNESS: Yes Other orientation findings (Noninteractive at baseline) HENMT: COMMON NORMALS: oropharynx normal Neck/C-Spine: COMMON NORMALS: no JVD Resp: COMMON NORMALS: normal respiratory effort and clear to auscultation bilaterally AUSCULTATION: clear to auscultation bilaterally Cardio: COMMON NORMALS: no JVD, regular rhythm, S1 normal heart sound present, S2 normal heart sound present and No murmurs present (Cardio) RHYTHM: regular rhythm HEART SOUNDS: S1 normal heart sound present and S2 normal heart sound present GI: COMMON NORMALS: Normal to inspection, nondistended, normoactive bowel sounds present, Soft to palpation and non-tender PALPATION: Yes Soft to palpation Extremity: COMMON NORMALS: no joint enlargement and no pedal edema OTHER: Chronic extremity contractures Neuro: COMMON NORMALS: moves all extremities Skin: COMMON NORMALS: no rashes or lesions noted GENERAL SKIN EXAM: no rashes or lesions noted Urinary Catheter Management^: Sequeira: Cath Placed During This Visit: yes Reason for Continuing Indwelling Catheter: Accurate Measurement of Urinary Output in Critically Ill Patients Urinary Catheter Date of Insertion: 10/24/20 Urinary Catheter Time of Insertion: 14:08 Data : 10/26/20 04:00 10/30/20 04:43 Micro: Microbiology 10/24/20 22:00 Blood Culture - Final Blood NO GROWTH AFTER 5 DAYS 10/24/20 13:05 Blood Culture - Final Blood NO GROWTH AFTER 5 DAYS A&P Assessment and plan (1) Hypotension: Blood pressures remain soft, currently hypotensive, BP 75/57. Continue IV rehydration. We will continue current dose of hydrocortisone for now without decreasing further, if blood pressure remains soft, may need to go back up on the dose. Status: Acute (2) Acute hyponatremia: Sodium up to 133. Continue gentle hydration with D5W. Monitor sodium. For now continues with free water flushes of 100 mL 4 times daily. Would not increase this any further until sodium can be reassessed after IV D5W discontinued. Recheck sodium level. For now hold off tapering of hydrocortisone any further due to soft blood pressures. Status: Acute (3) Acute alteration in mental status: Appears closer to baseline. Appears may be combination of both changes in sodium level as well as seizures noted at home. This afternoon appears to be improved. Status: Acute (4) Cerebral palsy: Tube feeds adjusted as per nutrition recommendations. Status: Acute (5) Seizure disorder: Status: Acute (6) Panhypopituitarism: Continue follow-up with endocrinology. Status: Acute (7) Hypothyroidism: Status: Acute (8) Neutropenia: Status: Acute Additional A&P Information Constipation: Still no bowel movement. Will give enema today. Continue with strict bowel regimen with milk of magnesia, lactulose daily. History of panhypopituitarism: Patient takes hydrocortisone 10 mg p.o. twice daily. Keep at current dose due to hypotension. Monitor blood pressures. Discharge planning: [facility] Attestations Medical Necessity Statement*: Continue admission for cyst management of acute on chronic hyponatremia, hypotension with panhypopituitarism. Coding Level of Care Code Acute Director Of Student Financial Services for [facility] Fwd Exam Comprehensive Diagnoses Hypotension I95.9 Acute hyponatremia E87.1 Acute alteration in mental status R41.82 Cerebral palsy G80.9 Seizure disorder G40.909 Panhypopituitarism E23.0 Hypothyroidism E03.9 Neutropenia D70.9
[2020-10-30 14:51] LABS: Anion Gap 14.5 (5-19); Blood Urea Nitrogen 7 mg/dL (6-20); Calcium 8.4 mg/dL (8.5-10.5); Carbon Dioxide 24 mmol/L (22-29); Chloride 97 mmol/L (98-107); Glomerular Filtration Rate 271.1 mL/min (90-130); Glucose 100 mg/dL (65-115); Osmolality Calculated 272 mOsm/kg (285-295); Potassium 3.5 mmol/L (3.5-5.1); Sodium 132 mmol/L (136-145)
[2020-10-30] MEDS: bisacodyl 5 mg Tablet 10 MG PO (14:56)
[2020-10-30] MEDS: artificial tears Op Oint 3.5 gm 1 APPLIC EYE-BOTH (20:54)
[2020-10-30] MEDS: sennosides 8.6 mg Tablet 17.2 MG PO (20:54)
[2020-10-30] MEDS: magnesium hydroxide 30 mL UDC PEG-TUBE (21:00)
--- NOTE | 2020-10-30 21:10 | PC.NURSE ---
Ensure 240 ml bolus feed given, 30ml flush due to 150ml flush given at 1900.
[2020-10-31] VITALS (19 sets, daily range): BP systolic 72–128; BP diastolic 55–93; PULSE 76–123; RESP 10–25; TEMP 36.7–36.9; O2SAT 95–99
[2020-10-31] MEDS: dextrose 5% 1,000 ML 30 ML IV (04:49)
[2020-10-31] MEDS: heparin 5,000 unit/mL INJ 1 mL 5000 UNIT SUBCUT ×2 (04:49→17:09)
[2020-10-31 05:11] LABS: Alanine Aminotransferase 20 U/L (0-33); Albumin Level 3.9 g/dL (3.5-5.2); Alkaline Phosphatase 154 IU/L (35-105); Anion Gap 12.9 (5-19); Aspartate Amino Transferase 26 U/L (0-32); Blood Urea Nitrogen 8 mg/dL (6-20); Calcium 8.6 mg/dL (8.5-10.5); Carbon Dioxide 28 mmol/L (22-29); Chloride 95 mmol/L (98-107); Globulin 2.8 g/dL (1.3-4.6); Glomerular Filtration Rate 194.5 mL/min (90-130); Glucose 78 mg/dL (65-115); Osmolality Calculated 271 mOsm/kg (285-295); Potassium 3.9 mmol/L (3.5-5.1); Sodium 132 mmol/L (136-145); Total Bilirubin 0.2 mg/dL (0.15-1.2); Total Protein 6.7 g/dL (6.6-8.7)
[2020-10-31] MEDS: hydrocortisone 100 mg/2 mL SDV 25 MG IVP ×2 (05:52→17:04)
[2020-10-31] MEDS: levETIRAcetam 500 mg Tablet 1500 MG PO ×2 (05:53→19:18)
[2020-10-31] MEDS: levothyroxine 100 mcg Tablet PO (05:53)
[2020-10-31] MEDS: CLONazepam 1 mg Tablet PO ×2 (05:53→13:09)
[2020-10-31] MEDS: lamoTRIgine 100 mg Tablet 400 MG PO ×2 (05:53→19:18)
[2020-10-31] MEDS: RUFINAMIDE 400 MG 1400 EACH PO ×2 (05:54→21:28)
[2020-10-31] MEDS: lactulose oral liq 20 gm/30 mL UDC 10 GM PO (08:38)
[2020-10-31] MEDS: famotidine 20 mg Tablet PO ×2 (08:38→17:10)
[2020-10-31] MEDS: ofloxacin 0.3% otic 5 mL Btl 5 DROP EAR-BOTH ×2 (08:39→17:12)
--- NOTE | 2020-10-31 11:18 | PM.PN ---
Subjective Subjective: Interval history: She is cognitively the same and apparently at baseline. No overt discomfort. No edema. Vitals/I&O/Wt Last Vital Signs Temp 98.3 F 10/31/20 06:00 Pulse 82 10/31/20 08:00 Resp 13 10/31/20 08:00 BP 91/62 10/31/20 08:00 Pulse Ox 99 10/31/20 06:00 10/30/20 10/31/20 10/31/20 22:59 06:59 14:59 Intake Total 1628.75 / 2328.75 301.25 / 2630.00 511.5 / 511.5 Output Total 400 / 400 800 / 1200 Balance 1228.75 / 1928.75 -498.75 / 1430.00 511.5 / 511.5 Weight last 48 hrs Weight 56.654 kg Weight 56.382 kg Physical Exam Narrative: EXAM NARRATIVE: Constitutional: AMS HEENT: Wet mucosa, no jvp, non icteric Lungs: Bilaterally clear without discernible wheeze or rales in all lung zones CVS: S1 S2, no murmurs Abdo: Soft, BS ok Ext 4: Minimal edema, peripheral perfusion with no cyanosis Neurological: Grossly non-focal Urinary Catheter Management^: Sequeira: Cath Placed During This Visit: yes Reason for Continuing Indwelling Catheter: Accurate Measurement of Urinary Output in Critically Ill Patients Urinary Catheter Date of Insertion: 10/24/20 Urinary Catheter Time of Insertion: 14:08 Data : 10/26/20 04:00 10/31/20 04:15 A&P Additional A&P Information 1. Euvolemic hyponatremia Initially she is behaving like she has SIADH, the differential diagnosis of course is adrenal insufficiency. The differential diagnosis is therefore poor recent medication compliance with outpatient hydrocortisone, SIADH from antiseizure therapy, high water intake with free water flushes with low solute intake which of course is very speculative without additional information. Sodium back to baseline levels 2. Seizures Management per neurology I will sign off her care at this time, thank you for consultation, as always it is a pleasure to follow these patients with you Exam and interview performed with aid of bedside RN using telemedicine Time spent 20 min inc > 50% of time in face to face counseling Gregorio Toro MD [facility] [place] [id number] Attestations Medical Necessity Statement*: Eval for hyponatremia Coding Level of Care Code Acute District Medical Examiner for [facility] Paula
--- NOTE | 2020-10-31 12:44 | P.DS_ITS ---
Discharge Providers Date of Admission: 10/24/20 14:49 Date of Discharge: October 31, 2020 Attending Provider at Admission: Pierre Madera MD Attending Provider at Discharge: Stone Moreno Primary Care Provider: Cindy Leger APRN Diagnoses at Discharge Discharge Diagnosis (1) Hypotension: Status: Acute (2) Acute hyponatremia: Status: Acute (3) Acute alteration in mental status: Status: Acute (4) Cerebral palsy: Status: Acute (5) Seizure disorder: Status: Acute (6) Panhypopituitarism: Status: Acute (7) Hypothyroidism: Status: Acute (8) Neutropenia: Status: Acute Reason for Visit Reason for Visit: POSS UTI Hospital Course Hospital Course 25-year-old female with cerebral palsy, spastic quadriplegia, requiring total assistance, with PEG tube feedings, with chronic hyponatremia, panhypopituitarism, following with endocrinology, seizure disorder, following with neurology return to the hospital after recent discharge with again decreased responsiveness, with noted again acute on chronic hyponatremia, sodium as low as 109, with reported breakthrough seizures at home. At home she is in a difficult situation, as previously been cared for by her grandmother who is having advanced dementia, also living with her and who has spina bifida. She is on a number of medications, with prior reports of not very good compliance, and sometimes grandmother inadvertently taking her medications. Previously her sister Charlee was staying with them as well, however, had moved out of the house 2 years ago. Since resumption of her medications in the hospital she has had no recurrent seizures since admission. She may have been getting too many water flushes as well. 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 Sodium levels initially somewhat fluctuating, initially with rapid correction for which received DDAVP after correcting to 128. Came d own to 116, subsequently 123, with D5W, increase was subsequently more gradual, 131, 127, 133 which is her usual baseline. Blood pressures while in hospital noted soft, initially stress dose steroids were provided with increase of hydrocortisone to 50 mg twice daily. This was tapered down to 25 mg twice daily currently. Blood pressures gradually improved, returning closer to her baseline in the 90s 200s systolic. At this time we will continue hydrocortisone 25 mg twice daily with taper down toward her usual dose of 10 mg twice daily which will need to be continued after taper is complete. Please resume follow-up with endocrinology in office. Please follow-up with neurology in office as well. During hospitalization also noted to have constipation which improved with bowel regimen, milk molasses enema. She is continued on bowel regimen. Constipation was present on CT chest abdomen pelvis performed on admission, incidentally also seen to have a 5 mm calcified gallstone in the gallbladder. Liver parameters remain normal apart from chronically elevated alkaline phosphatase, which would benefit from additional outpatient follow-up. Please reassess sodium in 2 days. Continue tube feeds. Water flushes for now reduce to 100 mL 4 times daily with feedings. Please continue reassessment of tube feeds and flushes, adjust as appropriate. Physical Exam Const: COMMON NORMALS: no acute distress GENERAL APPEARANCE: not visitor services coordinator perative ORIENTATION/CONSCIOUSNESS: Yes Other orientation findings (Noninteractive at baseline) HENMT: COMMON NORMALS: oropharynx normal Neck/C-Spine: COMMON NORMALS: no JVD Resp: COMMON NORMALS: normal respiratory effort and clear to auscultation bilaterally AUSCULTATION: clear to auscultation bilaterally Cardio: COMMON NORMALS: no JVD, regular rhythm, S1 normal heart sound present, S2 normal heart sound present and No murmurs present (Cardio) RHYTHM: regular rhythm HEART SOUNDS: S1 normal heart sound present and S2 normal heart sound present GI: COMMON NORMALS: Normal to inspection, nondistended, normoactive bowel sounds present, Soft to palpation and non-tender PALPATION: Yes Soft to palpation Extremity: COMMON NORMALS: no joint enlargement and no pedal edema OTHER: Chronic extremity contractures Neuro: COMMON NORMALS: moves all extremities Skin: COMMON NORMALS: no rashes or lesions noted GENERAL SKIN EXAM: no rashes or lesions noted Urinary Catheter Management^: Sequeira: Cath Placed During This Visit: yes Reason for Continuing Indwelling Catheter: Accurate Measurement of Urinary Output in Critically Ill Patients Urinary Catheter Date of Insertion: 10/24/20 Urinary Catheter Time of Insertion: 14:08 Discharge Data Data Completed and Pending: Completed Studies During Hospitalization Category Date Time Status CT chest abd pel w con* Routine Cat Scan 10/24/20 17:[address] head wo con* 7 0450 Urgent Cat Scan 10/24/20 13:38 Completed XR chest 1V walter ble 11332 Urgent Exams 10/24/20 11:49 Completed Pending at discharge Category Date Time Status Comprehensive Met abolic Panel AM LA BS Lab 11/01/20 04:00 Ordered Urinalysis Routin e Lab 10/24/20 20:40 Uncollected Labs from last 24 hours 10/31/20 10/30/20 04:15 14:00 Sodium 132 L 132 L Potassium 3.9 3.5 Chloride 95 L 97 L Carbon Dioxide 28 24 Anion Gap 12.9 14.5 BUN 8 7 Creatinine 0.4 L 0.3 L GFR Calculation 194.5 H 271.1 H Glucose 78 100 Calculated Osmolal ity 271 L 272 L Calcium 8.6 8.4 L Total Bilirubin 0.2 AST 26 ALT 20 Alkaline Phosphata se 154 H Total Protein 6.7 Albumin 3.9 Globulin 2.8 Vitals: Last Vital Signs Temp 98.3 F 10/31/20 06:00 Pulse 82 10/31/20 08:00 Resp 13 10/31/20 08:00 BP 91/62 10/31/20 08:00 Pulse Ox 99 10/31/20 06:00 Discharge Plan Discharge Patient Disposition: Xfer SNF Condition: Stable Prescriptions: New bisacodyl 5 mg Tablet,Delayed Release (Dr/Ec) 10 mg PO DAILY PRN (Reason: Constipation (see protocol)) Qty: 30 RF: 0 lactulose 20 gram/30 mL Solution 10 g PO DAILY Qty: 1200 RF: 0 famotidine 20 mg Tablet 20 mg PO BID Qty: 60 RF: 0 Refresh P.M. 57.3-42.5 % Ointment 1 applic eye-both BEDTIME Qty: 3.5 RF: 0 hydrocortisone 10 mg tablet See Rx Instructions .ROUTE .COMPLEX Qty: 30 RF: 0 magnesium hydroxide [Milk of Magnesia] 400 mg/5 mL Suspension 30 ml peg-tube BEDTIME PRN (Reason: constipation) Qty: 3000 RF: 0 sennosides [Senna Lax] 8.6 mg Tablet 17.2 mg PO BEDTIME PRN (Reason: constipation) Qty: 30 RF: 0 Continued ofloxacin 0.3 % drops 5 drop EAR-BOTH BID 7 Days Qty: 5 RF: 0 phenobarbital 60 mg tablet 60 mg PO BID@0700,1900 RF: 0 lamotrigine 200 mg tablet 400 mg PO BID@0700,1900 RF: 0 clonazepam 1 mg tablet 1 mg PO TID@07,12,19 RF: 0 triamcinolone acetonide 0.025 % cream See Rx Instructions .ROUTE .COMPLEX RF: 0 Banzel 400 mg tablet 1,400 mg PO BID@0700,1900 RF: 0 Levoxyl 100 mcg tablet 100 mcg PO DAILY@0700 RF: 0 Keppra 250 mg tablet 1,500 mg PO BID@0700,1900 RF: 0 Held hydrocortisone 10 mg tablet 10 mg PO BID@0700,1900 RF: 0 Hold Instructions: Resume on 11/06/20. Discharge Orders: Discharge Order (Routine); Ordered 10/31/20 Ordered By: Stone Moreno Referrals: Ximena Pham MD [Physician] - 1 week (Breakthrough seizures) Cindy Leger APRN [Primary Care Provider] - 4-7 days Nura Vasquez MD [Physician] - 2 weeks Discharge Diet: Start new tube feeds as directed Discharge Activity: Resume usual activity Activity Restrictions/Additional Instructions: Please reposition frequently to prevent pressure ulcers. Please recheck sodium level in 2 days. Monitor blood pressures. Usually run soft in the 90s-low 100s. Continue tube feeding with Jevity 1.2, 311 mL 4 times daily with 100 mL H2O flushes with feedings. Reassess tube feeding needs and water flushes further depending on her weight and sodium level. Avoid constipation. Follow-up with neurology regarding breakthrough seizures prior to admission. Please taper down hydrocortisone dose. Baseline dose 10 mg twice daily. Continue 10 mg twice daily after taper is complete. Resume follow-up with endocrinology regarding panhypopituitarism. Discharge Attestations Time Spent in Discharge Care*: greater than 30 min Status at Discharge: Cognitive status at discharge: severely impaired cognition (At baseline however. ) , Quality Metrics Clinical Quality Measures During this hospital stay, did patient experience: None Coding Level of Care Code Acute Chg FW DC note Exam Comprehensive Diagnoses Hypotension I95.9 Acute hyponatremia E87.1 Acute alteration in mental status R41.82 Cerebral palsy G80.9 Seizure disorder G40.909 Panhypopituitarism E23.0 Hypothyroidism E03.9 Neutropenia D70.9
--- NOTE | 2020-10-31 12:47 | PC.SOCIAL ---
*IMM UDPATE* Gave patient's auntKayley verbal IMM update. Verbalized understanding 10/31/20 @ 1247 Initialed,dated timed and placed in chart.
--- NOTE | 2020-10-31 16:39 | PC.NURSE ---
Report called to ELVIA Dill on [facility] at 1640. Pt to be transported by bed to [facility] room 266.
--- NOTE | 2020-10-31 17:44 | PC.NURSE ---
Pt transferred to [facility] room 266 via bed. Pt belongings placed at bedside and Nurse Aniyah notified.
[2020-10-31] MEDS: magnesium hydroxide 30 mL UDC PEG-TUBE (21:24)
[2020-10-31] MEDS: sennosides 8.6 mg Tablet 17.2 MG PO (21:24)
[2020-10-31] MEDS: artificial tears Op Oint 3.5 gm 1 APPLIC EYE-BOTH (21:29)
[2020-11-01 04:00] VITALS: BP 96/68; PULSE 105; RESP 17; TEMP 36.4; O2SAT 98
[2020-11-01] MEDS: heparin 5,000 unit/mL INJ 1 mL 5000 UNIT SUBCUT (04:01)
[2020-11-01] MEDS: lamoTRIgine 100 mg Tablet 400 MG PO (06:01)
[2020-11-01] MEDS: levothyroxine 100 mcg Tablet PO (06:01)
[2020-11-01] MEDS: RUFINAMIDE 400 MG 1400 EACH PO (06:01)
[2020-11-01] MEDS: levETIRAcetam 500 mg Tablet 1500 MG PO (06:01)
[2020-11-01] MEDS: hydrocortisone 100 mg/2 mL SDV 25 MG IVP (06:16)
[2020-11-01 07:32] LABS: Alanine Aminotransferase 19 U/L (0-33); Alkaline Phosphatase 156 IU/L (35-105); Aspartate Amino Transferase 25 U/L (0-32); Blood Urea Nitrogen 12 mg/dL (6-20); Calcium 8.5 mg/dL (8.5-10.5); Carbon Dioxide 27 mmol/L (22-29); Chloride 101 mmol/L (98-107); Globulin 2.8 g/dL (1.3-4.6); Glomerular Filtration Rate 194.5 mL/min (90-130); Glucose 66 mg/dL (65-115); Osmolality Calculated 282 mOsm/kg (285-295); Sodium 137 mmol/L (136-145); Total Bilirubin 0.2 mg/dL (0.15-1.2); Total Protein 6.8 g/dL (6.6-8.7)
[2020-11-01 07:48] LABS: Anion Gap 13.4 (5-19); Potassium 4.4 mmol/L (3.5-5.1)
[2020-11-01 08:00] VITALS: BP 100/69; PULSE 79; RESP 17; TEMP 36.3; O2SAT 100
--- NOTE | 2020-11-01 08:20 | PM.PN ---
Subjective Subjective: Interval history: Please see discharge summary from 10/31. Did not end up leaving on the day due to neutropenia is overall from SNF. -Today she is awake, alert, spontaneously moving, nodding her head as per baseline. As per baseline is noninteractive, not following commands. Does not appear in discomfort or distress. Vitals/I&O/Wt Last Vital Signs Temp 97.5 F L 11/01/20 04:00 Pulse 105 H 11/01/20 04:00 Resp 17 11/01/20 04:00 BP 96/68 11/01/20 04:00 Pulse Ox 98 11/01/20 04:00 10/31/20 11/01/20 11/01/20 22:59 06:59 14:59 Intake Total 430 / 941.5 310 / 1251.5 Output Total 1175 / 1650 500 / 2150 Balance -745 / -708.5 -190 / -898.5 Weight last 48 hrs Weight 57.805 kg Weight 56.654 kg Physical Exam Const: COMMON NORMALS: no acute distress GENERAL APPEARANCE: comfortable; not cooperative ORIENTATION/CONSCIOUSNESS: Yes Other orientation findings (Noninteractive at baseline) HENMT: COMMON NORMALS: oropharynx normal Neck/C-Spine: COMMON NORMALS: no JVD Resp: COMMON NORMALS: normal respiratory effort and clear to auscultation bilaterally AUSCULTATION: clear to auscultation bilaterally Cardio: COMMON NORMALS: no JVD, regular rhythm, S1 normal heart sound present, S2 normal heart sound present and No murmurs present (Cardio) RHYTHM: regular rhythm HEART SOUNDS: S1 normal heart sound present and S2 normal heart sound present GI: COMMON NORMALS: Normal to inspection, nondistended, normoactive bowel sounds present, Soft to palpation and non-tender PALPATION: Yes Soft to palpation Extremity: COMMON NORMALS: no joint enlargement and no pedal edema OTHER: Chronic extremity contractures Neuro: COMMON NORMALS: moves all extremities Skin: COMMON NORMALS: no rashes or lesions noted GENERAL SKIN EXAM: no rashes or lesions noted Urinary Catheter Management^: Seuqeira: Cath Placed During This Visit: yes Reason for Continuing Indwelling Catheter: Accurate Measurement of Urinary Output in Critically Ill Patients Urinary Catheter Date of Insertion: 10/24/20 Urinary Catheter Time of Insertion: 14:08 Data : 10/26/20 04:00 11/01/20 05:51 A&P Assessment and plan (1) Hypotension: Resolved. BP back to baseline. Taper hydrocortisone. Follow-up with endocrinology. Status: Acute (2) Acute hyponatremia: Sodium up to 137. IV fluids discontinued last night. Continue tube feeds, free water flushes 100 mL 4 times daily. Recheck sodium level in 2 days. Hydrocortisone taper. Follow-up with endocrinology. Follow-up with nephrology regarding chronic hyponatremia. Status: Acute (3) Acute alteration in mental status: Appears closer to baseline. Appears may be combination of both changes in sodium level as well as seizures noted at home. This afternoon appears to be improved. Status: Acute (4) Cerebral palsy: Continue tube feeds. Passive range of motion. Reposition frequently. Status: Acute (5) Seizure disorder: Status: Acute (6) Panhypopituitarism: Continue follow-up with endocrinology. Status: Acute (7) Hypothyroidism: Status: Acute (8) Neutropenia: Status: Acute Additional A&P Information Constipation: Has had several bowel movements since the enema. Continue bowel regimen. Avoid constipation. History of panhypopituitarism: Patient takes hydrocortisone 10 mg p.o. twice daily. Hypotension resolved. Taper off hydrocortisone. Follow-up with endocrinology. Monitor blood pressures. Discharge planning: SNF Attestations Medical Necessity Statement*: Discharging to SNF. Coding Level of Care Code Acute Chief Of Field Operations for Chg Fwd Exam Comprehensive Diagnoses Hypotension I95.9 Acute hyponatremia E87.1 Acute alteration in mental status R41.82 Cerebral palsy G80.9 Seizure disorder G40.909 Panhypopituitarism E23.0 Hypothyroidism E03.9 Neutropenia D70.9
[2020-11-01] MEDS: famotidine 20 mg Tablet PO (09:29)
[2020-11-01] MEDS: lactulose oral liq 20 gm/30 mL UDC 10 GM PO (09:29)
[2020-11-01] MEDS: ofloxacin 0.3% otic 5 mL Btl 5 DROP EAR-BOTH (09:31)
[2020-11-01 12:07] VITALS: BP 100/69; PULSE 79; RESP 17; TEMP 36.3; O2SAT 100
== END 2020-11-01 12:09 | disposition skilled nursing facility (03) | DRG 643 ==
LOC: ER 14:53 → ICU 15:24 → MEDSURG 10-31 17:45
PROVIDERS: Internal Medicine Nephrology; Admitting Provider Student in an Organized Health Care Education/Training Program; Emergency Provider Family Medicine; PCP Nurse Practitioner Family; Visit Provider Internal Medicine
DX: E22.2 Syndrome of inappropriate secretion of antidiuretic hormone (principal); G80.0 Spastic quadriplegic cerebral palsy; Z93.1 Gastrostomy status; E03.9 Hypothyroidism, unspecified; E23.0 Hypopituitarism; G40.909 Epilepsy, unspecified, not intractable, without status epilepticus; D70.9 Neutropenia, unspecified; T38.0X6A Underdosing of glucocorticoids and synthetic analogues, initial encounter; Z91.138 Patient's unintentional underdosing of medication regimen for other reason; I95.9 Hypotension, unspecified; K59.00 Constipation, unspecified
CPT/HCPCS: 36415; 36416; 51702; 70450; 71045; 71260; 74177; 80048; 80053; 80061; 80175; 80177; 80184; 81003; 81025; 82436; 82533; 82962; 83036; 83540; 83550; 83605; 83735; 83880; 83935; 84100; 84133; 84145; 84295; 84300; 84443; 85025; 87040; 87641; 94664; 96372; J1644; J1720; J2597; J3490; J7030; J7131; Q3014; Q9967

== ENCOUNTER 2020-11-24 16:55 | Outpatient (CLI) | payer MEDICARE, MEDICAID, SELFPAY ==
[2020-11-24 17:13] LABS: Bilirubin Urine Neg (Negative); Blood Urine Neg (Negative); Glucose Urine UA Norm (Normal); Ketones Urine Negative (Negative); Leukocyte Esterase Urine Negative (Negative); Nitrate Urine Negative (Negative); Protein Urine Neg (Negative); Specific Gravity, Urine 1.015 (1.005-1.030); Urine Appearance Clear (CLEAR); Urine Color Yellow (Yellow); Urobilinogen Urine 1 mg/dL (Negative); pH Urine 6 (5-7)
[2020-11-24 17:17] LABS: Add Urine Culture? No; Bacteria Urine TRACE /hpf; Squamous Epithelial Cell Urine 0-4 /hpf (0-5)
== END 2020-11-24 16:56 | disposition home or self-care (01) ==
PROVIDERS: PCP Nurse Practitioner Family; Visit Provider Nurse Practitioner Family
DX: I10 Essential (primary) hypertension (principal)
CPT/HCPCS: 81001; 87086

== ENCOUNTER → 2021-01-14 08:45 | Outpatient (BNVA) | payer MEDICARE, MEDICAID, SELFPAY | PROVIDERS: PCP Nurse Practitioner Family; Referring Provider Internal Medicine; Visit Provider Nurse Practitioner | DX: G40.909 Epilepsy, unspecified, not intractable, without status epilepticus (principal); E87.1 Hypo-osmolality and hyponatremia | CPT/HCPCS: 99213; 99214 ==

== ENCOUNTER 2021-01-18 15:27 | Emergency (ER) | payer MEDICARE, MEDICAID, SELFPAY ==
[2021-01-18 15:44] VITALS: BP 93/53; PULSE 78; RESP 14; TEMP 36.4; O2SAT 95
--- NOTE | 2021-01-18 16:00 | W.ED.GENADLT ---
HPI - General Adult General: Chief complaint: Abdominal Pain Stated complaint: PULLED OUT PEG TUBE Time Seen by Provider: 01/18/21 15:31 Source: patient and EMS Mode of arrival: EMS Limitations: language barrier History of Present Illness: HPI narrative: Patient is a 25-year-old female with a history of cerebral palsy and spastic quadriplegia here from [facility] after patient pulled out her gastrostomy tube/armida-harris button. Exact date of initial gastrostomy tube placement unknown but has been present over the past several months at least. Review of Systems General: Reports: ROS unobtainable due to mental status [facility] ED PFSH: Medical History Acute alteration in mental status Acute hyponatremia Cerebral palsy Hyponatremia Hypothyroidism Panhypopituitarism Perforated tympanic membrane Seizure disorder Surgical History S/P percutaneous endoscopic gastrostomy (PEG) tube placement Status post VNS (vagus nerve stimulator) placement ? Family History Other Diabetes Hyperlipidemia Social History Smoking and tobacco status: never smoked Physical Exam Const: COMMON NORMALS: no acute distress EXAM LIMITATIONS: language barrier (pt is non-verbal) Resp: COMMON NORMALS: normal respiratory effort Cardio: COMMON NORMALS: regular rate and regular rhythm RATE: regular rate RHYTHM: regular rhythm GI: COMMON NORMALS: Normal to inspection, nondistended, normoactive bowel sounds present, Soft to palpation and no masses INSPECTION: Yes other (gastrostomy site present with sood keeping track open) AUSCULTATION: Yes normoactive bowel sounds PALPATION: Yes Soft to palpation OTHER: site looks clean w/o evidence for infection Procedures Feeding Tube Replacement Type of Tube: gastrostomy Insertion Site Prior to Procedure: clean Tube Used for Reinsertion: patient's own Moldovan Tube Size (F): 18 Verification of Placement: auscultation Tube Secured by: tape/dressing Patient Tolerated Procedure: well Additional Comments: 18F 2.0cm Course Vital Signs: Vital signs: Vital Signs Temperature 97.9 F 01/18/21 17:06 Pulse Rate 88 01/18/21 17:06 Respiratory Rate 16 01/18/21 17:06 Blood Pressure 90/63 01/18/21 17:06 Pulse Oximetry 94 01/18/21 17:06 MDM - General Adult MDM Narrative: Medical decision making narrative: longterm sent pts armida-harris gastrotomy tube along with her medical affairs director that was dislodged. I tried to contact supply so I could re-insert a new one since she was here but we did not have the right size. Her armida-harris and medical affairs director were examined and tested and still function normally so these were cleaned and re-inserted; patient stable to go back to [facility] at this time. Discharge Plan Discharge Patient Disposition: Home Clinical Impression: Dislodged gastrostomy tube Condition: Stable Prescriptions: No Action ofloxacin 0.3 % drops 5 drop EAR-BOTH BID 7 Days Qty: 5 RF: 0 hydrocortisone 10 mg tablet 10 mg PO BID@0700,1900 RF: 0 Hold Instructions: Resume on 11/06/20. lamotrigine 200 mg tablet 400 mg PO BID@0700,1900 RF: 0 triamcinolone acetonide 0.025 % cream See Rx Instructions .ROUTE .COMPLEX RF: 0 Banzel 400 mg tablet 1,400 mg PO BID@0700,1900 RF: 0 Levoxyl 100 mcg tablet 100 mcg PO DAILY@0700 RF: 0 Keppra 250 mg tablet 1,500 mg PO BID@0700,1900 RF: 0 Refresh P.M. 57.3-42.5 % Ointment 1 applic eye-both BEDTIME Qty: 3.5 RF: 0 bisacodyl 5 mg Tablet,Delayed Release (Dr/Ec) 10 mg PO DAILY PRN (Reason: Constipation (see protocol)) Qty: 30 RF: 0 famotidine 20 mg Tablet 20 mg PO BID Qty: 60 RF: 0 lactulose 20 gram/30 mL Solution 10 g PO DAILY Qty: 1200 RF: 0 Milk of Magnesia 400 mg/5 mL Suspension 30 ml peg-tube BEDTIME PRN (Reason: constipation) Qty: 3000 RF: 0 Senna Lax 8.6 mg Tablet 17.2 mg PO BEDTIME PRN (Reason: constipation) Qty: 30 RF: 0 hydrocortisone 10 mg tablet See Rx Instructions .ROUTE .COMPLEX Qty: 30 RF: 0 clonazepam 1 mg tablet 1 mg PO TID@07,12,19 Qty: 21 RF: 0 phenobarbital 60 mg tablet 60 mg PO BID@0700,1900 Qty: 14 RF: 0 Discharge Orders: Discharge ED (Routine); Ordered 01/18/21 Ordered By: Naty Melo Referrals: Cindy Leger APRN [Primary Care Provider] - Coding Level of Care Code ED Occupational Health Physiotherapist for Chg Fwd Exam Expanded Problem Focused
[2021-01-18 17:06] VITALS: BP 90/63; PULSE 88; RESP 16; TEMP 36.6; O2SAT 94
== END 2021-01-18 19:00 | disposition home or self-care (01) ==
PROVIDERS: Emergency Provider Physician Assistant; PCP Nurse Practitioner Family
DX: K94.29 Other complications of gastrostomy (principal); G80.9 Cerebral palsy, unspecified
CPT/HCPCS: 43762; 99282; B4087

== ENCOUNTER 2021-01-26 05:58 | Emergency (ER) | payer MEDICARE, MEDICAID, SELFPAY ==
[2021-01-26 05:58] VITALS: BP 94/68; PULSE 76; RESP 18; TEMP 36.2; O2SAT 95; BMI 21.8
--- NOTE | 2021-01-26 06:28 | XRR_ITS ---
PROCEDURE INFORMATION: Exam: XR Abdomen Exam date and time: 01/26/2021 6:28 AM Age: 25 years old Clinical indication: Device placement; Gi device; Patient HX: Checking peg tube; Additional info: Inject 30ml gastrograffin via peg tube TECHNIQUE: Imaging protocol: XR of the abdomen. Views: Frontal supine view of the abdomen. 1 View. Total images: 1 Other contrast: Catheter, gastroview, 30; COMPARISON: CT chest abd pel w con* 10/24/2020 6:24 PM FINDINGS: Gastrointestinal tract: There is a large amount of fecal matter seen throughout the colon consistent with constipation. Bones/joints: Spinal fusion hardware noted. Soft tissues: Gastrostomy tube in satisfactory location with no leakage of injected contrast material. XR/XR KUB portable [id number] IMPRESSION: 1. Gastrostomy tube in satisfactory location with no leakage of injected contrast material. 2. There is a large amount of fecal matter seen throughout the colon consistent with constipation.
[2021-01-26] MEDS: diatrizoate meglumine 30 mL Sol PR (06:49)
[2021-01-26 06:55] VITALS: BP 83/51; PULSE 84; RESP 18; O2SAT 97
--- NOTE | 2021-01-26 07:27 | W.ED.GENADLT ---
HPI - General Adult General: Chief complaint: General Medical Stated complaint: feeding tube replacement Time Seen by Provider: 01/26/21 06:00 History of Present Illness: HPI narrative: 25-year-old female from the group home. Her feeding tube was pulled out. No other particular complaints needs it replaced at this point report was that it fell out sometime in the night. Onset (ago): unknown Location: abdomen Review of Systems General: Reports: ROS unobtainable due to medical condition PFSH ED PFSH: Medical History Acute alteration in mental status Acute hyponatremia Cerebral palsy Hyponatremia Hypothyroidism Panhypopituitarism Perforated tympanic membrane Seizure disorder Surgical History S/P percutaneous endoscopic gastrostomy (PEG) tube placement Status post VNS (vagus nerve stimulator) placement ? Family History Other Diabetes Hyperlipidemia Social History Smoking and tobacco status: never smoked Physical Exam Const: COMMON NORMALS: no acute distress GENERAL APPEARANCE: comfortable HENMT: COMMON NORMALS: normocephalic, atraumatic and hearing grossly normal bilaterally HEAD & SCALP: normocephalic and atraumatic Neck/C-Spine: COMMON NORMALS: no JVD Resp: COMMON NORMALS: normal respiratory effort, No retractions, No use of accessory muscles and clear to auscultation bilaterally AUSCULTATION: clear to auscultation bilaterally Cardio: COMMON NORMALS: no JVD, regular rate, regular rhythm and No murmurs present (Cardio) RATE: regular rate RHYTHM: regular rhythm Procedures Feeding Tube Replacement Type of Tube: gastrostomy Insertion Site Prior to Procedure: clean Verification of Placement: auscultation and gastrografin injection Tube Secured by: attachment device Patient Tolerated Procedure: well Additional Comments: Initially unable to pass the feeding tube through the ostomy site. A 12 [place] Sequeira was inserted the balloon was partially inflated and then withdrawn effectively dilating the's. Immediately after this the feeding tube was placed without difficulty and secured in place. Course Vital Signs: Vital signs: Vital Signs Temperature 97.1 F L 01/26/21 05:58 Pulse Rate 68 01/26/21 09:01 Respiratory Rate 18 01/26/21 09:01 Blood Pressure 92/65 01/26/21 09:01 Pulse Oximetry 97 01/26/21 09:01 Discharge Plan Discharge Patient Disposition: Home Clinical Impression: Encounter for feeding tube placement Condition: Stable Prescriptions: No Action ofloxacin 0.3 % drops 5 drop EAR-BOTH BID 7 Days Qty: 5 RF: 0 hydrocortisone 10 mg tablet 10 mg PO BID@0700,1900 RF: 0 Hold Instructions: Resume on 11/06/20. lamotrigine 200 mg tablet 400 mg PO BID@0700,1900 RF: 0 triamcinolone acetonide 0.025 % cream See Rx Instructions .ROUTE .COMPLEX RF: 0 Banzel 400 mg tablet 1,400 mg PO BID@0700,1900 RF: 0 Levoxyl 100 mcg tablet 100 mcg PO DAILY@0700 RF: 0 Keppra 250 mg tablet 1,500 mg PO BID@0700,1900 RF: 0 Refresh P.M. 57.3-42.5 % Ointment 1 applic eye-both BEDTIME Qty: 3.5 RF: 0 bisacodyl 5 mg Tablet,Delayed Release (Dr/Ec) 10 mg PO DAILY PRN (Reason: Constipation (see protocol)) Qty: 30 RF: 0 famotidine 20 mg Tablet 20 mg PO BID Qty: 60 RF: 0 lactulose 20 gram/30 mL Solution 10 g PO DAILY Qty: 1200 RF: 0 Milk of Magnesia 400 mg/5 mL Suspension 30 ml peg-tube BEDTIME PRN (Reason: constipation) Qty: 3000 RF: 0 Senna Lax 8.6 mg Tablet 17.2 mg PO BEDTIME PRN (Reason: constipation) Qty: 30 RF: 0 hydrocortisone 10 mg tablet See Rx Instructions .ROUTE .COMPLEX Qty: 30 RF: 0 clonazepam 1 mg tablet 1 mg PO TID@,, Qty: 21 RF: 0 phenobarbital 60 mg tablet 60 mg PO BID@0700,1900 Qty: 14 RF: 0 Discharge Orders: Discharge ED (Routine); Ordered 01/26/21 Ordered By: Robert Fisher Referrals: Cindy Leger APRN [Primary Care Provider] - Discharge Diet: Usual diet Discharge Activity: Resume usual activity Patient Instructions: Opioid Safety Coding Level of Care Code ED Top Collar Maker for Lobito Fwd Exam Detailed
[2021-01-26 08:28] VITALS: BP 95/66; PULSE 71; RESP 16; O2SAT 98
[2021-01-26 09:01] VITALS: BP 92/65; PULSE 68; RESP 18; O2SAT 97
== END 2021-01-26 09:19 | disposition home or self-care (01) ==
PROVIDERS: Emergency Provider Family Medicine; PCP Nurse Practitioner Family
DX: Z43.1 Encounter for attention to gastrostomy (principal); I10 Essential (primary) hypertension; E03.9 Hypothyroidism, unspecified; G80.9 Cerebral palsy, unspecified
CPT/HCPCS: 43762; 74018; 99282; Q9963

== ENCOUNTER → 2021-03-31 14:50 | Outpatient (BNVA) | payer MEDICARE, MEDICAID, SELFPAY | PROVIDERS: PCP Nurse Practitioner Family; Visit Provider Internal Medicine | DX: E23.0 Hypopituitarism (principal); G80.9 Cerebral palsy, unspecified; E87.1 Hypo-osmolality and hyponatremia; E03.9 Hypothyroidism, unspecified | CPT/HCPCS: 99214 ==

== ENCOUNTER 2021-11-13 07:57 | Emergency (ER) | payer MEDICARE, MEDICAID, SELFPAY ==
[2021-11-13 08:04] VITALS: BP 147/107; PULSE 73; RESP 16; TEMP 36.7; O2SAT 95
--- NOTE | 2021-11-13 08:05 | ED_ITS ---
HPI - General Adult General: Chief complaint: General Medical Stated complaint: Feeding tube fell out Time Seen by Provider: 11/13/21 08:04 Source: patient Mode of arrival: ambulatory Limitations: no limitations History of Present Illness: 26-year-old female with severe cerebral palsy presents from the halfway after having removed her PEG tube. There is no other specific complaint or problem. Report from EMS it has been couple of months evidently since the tube was replaced. Onset (ago): minute(s) Location: head Associated symptoms: Reports no associated symptoms Review of Systems General: Reports: ROS unobtainable due to mental status PFSH ED PFSH: Medical History Acute hyponatremia Cerebral palsy Hyponatremia Hypothyroidism Panhypopituitarism Perforated tympanic membrane Seizure disorder Surgical History S/P percutaneous endoscopic gastrostomy (PEG) tube placement Status post VNS (vagus nerve stimulator) placement ? Family History Other Diabetes Hyperlipidemia Social History Alcohol intake: never History of recent travel: No Physical Exam Const: ORIENTATION/CONSCIOUSNESS: Yes awake HENMT: COMMON NORMALS: normocephalic and atraumatic HEAD & SCALP: normocephalic and atraumatic Neck/C-Spine: COMMON NORMALS: no JVD Resp: COMMON NORMALS: normal respiratory effort, No retractions, No use of accessory muscles and clear to auscultation bilaterally AUSCULTATION: clear to auscultation bilaterally Cardio: COMMON NORMALS: no JVD, regular rate, regular rhythm and No murmurs present (Cardio) RATE: regular rate RHYTHM: regular rhythm GI: COMMON NORMALS: Soft to palpation and No hepatosplenomegaly present AUSCULTATION: Yes normoactive bowel sounds PALPATION: Yes Soft to palpation, No Tenderness to palpation present (GI), No Guarding due to palpation present (GI) and Yes No hepatosplenomegaly present Extremity: COMMON NORMALS: normal to inspection, capillary refill normal, no clubbing, cyanosis or edema, no calf tenderness and no pedal edema Skin: COMMON NORMALS: no rashes or lesions noted GENERAL SKIN EXAM: no rashes or lesions noted Procedures Feeding Tube Replacement Type of Tube: gastrostomy Insertion Site Prior to Procedure: clean Tube Used for Reinsertion: other Verification of Placement: auscultation Tube Secured by: attachment device Patient Tolerated Procedure: well Additional Comments: Tube replaced bulb inflated traction on the tube showed the tube to be secure split 4 x 4's were placed against the skin and the retention flange was advanced to secure in place belly band was 3 approximated to protect it from self extrication patient tolerated well Course Vital Signs: Vital signs: Vital Signs Temperature 98.0 F 11/13/21 08:04 Pulse Rate 73 11/13/21 08:04 Respiratory Rate 16 11/13/21 08:04 Blood Pressure 147/107 11/13/21 08:04 Pulse Oximetry 95 11/13/21 08:04 MDM - General Adult Medical Decision Making Replacement of PEG tube without difficulty discharged home Discharge Plan Discharge Patient Disposition: Home Clinical Impression: Encounter for feeding tube placement Condition: Stable Prescriptions: No Action ofloxacin 0.3 % drops 5 drop EAR-BOTH BID 7 Days Qty: 5 0RF hydrocortisone 10 mg tablet 10 mg PO BID@0700,1900 0RF Hold Instructions: Resume on 11/06/20. levothyroxine 112 mcg tablet 112 mcg PO DAILY Qty: 90 3RF lamotrigine 200 mg tablet 400 mg PO BID@0700,1900 0RF triamcinolone acetonide 0.025 % cream See Rx Instructions .ROUTE .COMPLEX 0RF Rx Instructions: APPLY SMALL AMOUNT TO AFFECTED EAR TID PRN ITCHING DIRECTED Banzel 400 mg tablet 1,400 mg PO BID@0700,1900 0RF Keppra 250 mg tablet 1,500 mg PO BID@0700,1900 0RF Rx Instructions: TAKE SIX TABS BY PEG TUBE TWICE DAILY. Refresh P.M. 57.3-42.5 % Ointment 1 applic eye-both BEDTIME Qty: 3.5 0RF bisacodyl 5 mg Tablet,Delayed Release (Dr/Ec) 10 mg PO DAILY PRN (Reason: Constipation (see protocol)) Qty: 30 0RF famotidine 20 mg Tablet 20 mg PO BID Qty: 60 0RF lactulose 20 gram/30 mL Solution 10 g PO DAILY Qty: 1200 0RF Milk of Magnesia 400 mg/5 mL Suspension 30 ml peg-tube BEDTIME PRN (Reason: constipation) Qty: 3000 0RF Senna Lax 8.6 mg Tablet 17.2 mg PO BEDTIME PRN (Reason: constipation) Qty: 30 0RF clonazepam 1 mg tablet 1 mg PO TID@07,12,19 Qty: 21 0RF phenobarbital 60 mg tablet 60 mg PO BID@0700,1900 Qty: 14 0RF Discharge Orders: Discharge ED (Routine); Ordered 11/13/21 Ordered By: Robert Fisher Referrals: Cindy Leger APRN [Primary Care Provider] - Patient Instructions: Opioid Safety Coding Level of Care Code ED Fire Sprinkler Apparatus Inspector for Lobito Paula
== END 2021-11-13 08:14 | disposition home or self-care (01) ==
PROVIDERS: Emergency Provider Family Medicine; PCP Nurse Practitioner Family
DX: Z43.1 Encounter for attention to gastrostomy (principal)
CPT/HCPCS: 43762; 99283

== ENCOUNTER 2021-11-13 12:44 | Emergency (ER) | payer MEDICARE, MEDICAID, SELFPAY ==
[2021-11-13 12:54] VITALS: RESP 17
--- NOTE | 2021-11-13 13:04 | W.ED.GENADLT ---
HPI - General Adult General: Chief complaint: General Medical Stated complaint: feeding tube came out Time Seen by Provider: 11/13/21 12:58 History of Present Illness: Patient is brought in by EMS from long-term care facility after pulling her G-tube out. Associated symptoms: Deny chest pain, dyspnea, headache(s), nausea, rash, palpitations or vomiting Review of Systems General: Reports: ROS unobtainable due to mental status Const: Denies: fever(s) or body aches Eyes: Denies: change in vision or blurry vision ENMT: Denies: throat pain or odynophagia Card: Denies: chest pain or palpitations Resp: Denies: dyspnea or productive cough GI: Denies: abdominal pain, nausea or vomiting : Denies: flank pain or dysuria Musc: Denies: neck pain or back pain Skin/Breast: Denies: rash or pruritus Neuro: Denies: headache(s) or numbness in extremities Psych: Denies: anxiety or change in appetite Endo: Denies: polyuria or excessive sweating PFSH ED PFSH: Medical History Acute hyponatremia Cerebral palsy Hyponatremia Hypothyroidism Panhypopituitarism Perforated tympanic membrane Seizure disorder Surgical History S/P percutaneous endoscopic gastrostomy (PEG) tube placement Status post VNS (vagus nerve stimulator) placement ? Family History Other Diabetes Hyperlipidemia Social History Alcohol intake: never History of recent travel: No Physical Exam Const: COMMON NORMALS: no acute distress OTHER: Nonverbal HENMT: COMMON NORMALS: normocephalic and atraumatic HEAD & SCALP: normocephalic and atraumatic Eye: COMMON NORMALS: Equal, round and reactive pupils present and EOMs intact bilaterally PUPIL: Yes Equal, round and reactive pupils present Neck/C-Spine: COMMON NORMALS: full ROM and supple Resp: COMMON NORMALS: normal respiratory effort, No retractions and No use of accessory muscles Cardio: COMMON NORMALS: regular rate and regular rhythm RATE: regular rate RHYTHM: regular rhythm GI: COMMON NORMALS: Soft to palpation and non-tender PALPATION: Yes Soft to palpation OTHER: 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 On physical exam she has a fistula in her left upper abdomen with no G-tube present. She was here earlier this morning after the same thing. We have an 18 Yoruba G-tube at the bedside that I was able to replace without complication. Will discharge back to the facility with precautions return for worsening or changing symptoms. Discharge Plan Discharge Patient Disposition: Home Clinical Impression: Encounter for feeding tube placement Condition: Stable Prescriptions: No Action ofloxacin 0.3 % drops 5 drop EAR-BOTH BID 7 Days Qty: 5 0RF hydrocortisone 10 mg tablet 10 mg PO BID@0700,1900 0RF Hold Instructions: Resume on 11/06/20. levothyroxine 112 mcg tablet 112 mcg PO DAILY Qty: 90 3RF lamotrigine 200 mg tablet 400 mg PO BID@0700,1900 0RF triamcinolone acetonide 0.025 % cream See Rx Instructions .ROUTE .COMPLEX 0RF Rx Instructions: APPLY SMALL AMOUNT TO AFFECTED EAR TID PRN ITCHING DIRECTED Banzel 400 mg tablet 1,400 mg PO BID@0700,1900 0RF Keppra 250 mg tablet 1,500 mg PO BID@0700,1900 0RF Rx Instructions: TAKE SIX TABS BY PEG TUBE TWICE DAILY. Refresh P.M. 57.3-42.5 % Ointment 1 applic eye-both BEDTIME Qty: 3.5 0RF bisacodyl 5 mg Tablet,Delayed Release (Dr/Ec) 10 mg PO DAILY PRN (Reason: Constipation (see protocol)) Qty: 30 0RF famotidine 20 mg Tablet 20 mg PO BID Qty: 60 0RF lactulose 20 gram/30 mL Solution 10 g PO DAILY Qty: 1200 0RF Milk of Magnesia 400 mg/5 mL Suspension 30 ml peg-tube BEDTIME PRN (Reason: constipation) Qty: 3000 0RF Senna Lax 8.6 mg Tablet 17.2 mg PO BEDTIME PRN (Reason: constipation) Qty: 30 0RF clonazepam 1 mg tablet 1 mg PO TID@07,12,19 Qty: 21 0RF phenobarbital 60 mg tablet 60 mg PO BID@0700,1900 Qty: 14 0RF Discharge Orders: Discharge ED (Routine); Ordered 11/13/21 Ordered By: Omar Raines Referrals: Cindy Leger APRN [Primary Care Provider] - Coding Level of Care Code ED Marine Service Operator for Chg Fwd Exam Detailed
== END 2021-11-13 13:15 | disposition home or self-care (01) ==
PROVIDERS: Emergency Provider Emergency Medicine; PCP Nurse Practitioner Family
DX: Z43.1 Encounter for attention to gastrostomy (principal)
CPT/HCPCS: 43762; 99283

== ENCOUNTER 2021-11-20 09:43 | Day surgery (SDC) | payer MEDICARE, MEDICAID, SELFPAY ==
[2021-11-19 11:54] VITALS: BMI 23.8
[2021-11-20 10:02] VITALS: BP 90/72; PULSE 91; RESP 18; TEMP 36.1; O2SAT 97
--- NOTE | 2021-11-20 10:59 | PM.ACPR ---
Procedure/Consent Time out: Time Out Performed: Yes Consent: Consent for Procedure: Consent obtained from other (indicate) (POA) Procedure Narrative: Preop diagnosis: Leakage around gastrostomy tube Postop diagnosis: Same Procedure: Exchange of 18 Hungarian gastrostomy tube to 20 Hungarian gastrostomy tube Anesthesia: None Surgeon: Homar Description of the procedure: The balloon on the 18 Hungarian gastrostomy tube was deflated and the balloon removed without difficulty. A 20 Hungarian gastrostomy tube was introduced and balloon was inflated with 10 cc of saline and dressings were applied. Patient tolerated the procedure well. Acute Procedures Epistaxis Control: Time out performed: Yes
== END 2021-11-20 10:13 | disposition home or self-care (01) ==
PROVIDERS: PCP Family Medicine; Visit Provider Surgery
PROC: 0DP64UZ Removal of Feeding Device from Stomach, Percutaneous Endoscopic Approach (ICD-10-PCS; CPT 43762; principal; 2021-11-20 10:15)
DX: Z43.1 Encounter for attention to gastrostomy (principal)
CPT/HCPCS: 43762

== ENCOUNTER 2022-04-25 20:27 | Inpatient (IN) | payer MEDICARE, MEDICAID, SELFPAY ==
[2022-04-25 20:37] VITALS: BP 95/68; PULSE 117; RESP 25; TEMP 38.7; O2SAT 98; BMI 18.3
--- NOTE | 2022-04-25 20:50 | XRR_ITS ---
PROCEDURE INFORMATION: Exam: XR Chest Exam date and time: 04/25/2022 10:33 PM Age: 27 years old Clinical indication: Cough and fever; Additional info: Fever SOB TECHNIQUE: Imaging protocol: Radiologic exam of the chest. Views: 1 view. COMPARISON: CT chest abd pel w con* 10/24/2020 6:24 PM FINDINGS: Tubes, catheters and devices: Stable left pacemaker. Lungs: Poor inspiratory effort with some crowding of pulmonary markings and possible accentuation of the apparent heart size. Mild peribronchial thickening and/or mild perihilar linear markings consistent with bronchitis and/or viral pneumonitis and/or reactive airway disease and/or atypical pulmonary interstitial edema. Pleural spaces: Unremarkable. No pleural effusion. No pneumothorax. Heart/Mediastinum: See Lungs finding. Bones/joints: Unremarkable. Other findings: Stable metallic postoperative changes over the thoracolumbar spine with metallic artifact. XR/XR chest 1V portable [id number] IMPRESSION: 1. Poor inspiratory effort with some crowding of pulmonary markings and possible accentuation of the apparent heart size. 2. Mild peribronchial thickening and/or mild perihilar linear markings consistent with bronchitis and/or viral pneumonitis and/or reactive airway disease and/or atypical pulmonary interstitial edema.
--- NOTE | 2022-04-25 20:51 | ECG_ITS ---
[facility] Test Date: 2022-04-25 Pat Name: Jennyfer Bliss Department: Room: Gender: Female Ancillary Specialist: : 1995 Requested By: Daniel Perkins Order Number: [id number] Daphnie MD: Wolfgang Laboy M.D. Measurements Intervals [place] Rate: 113 P: -5 NM: 316 QRS: 64 QRSD: 76 T: -31 QT: 289 QTc: 397 Interpretive Statements SINUS TACHYCARDIA ST DEVIATION AND MODERATE T-WAVE ABNORMALITY, CONSIDER ANTEROLATERAL ISCHEMIA [-0.1+ mV T-WAVE IN V3-V6] ST DEVIATION AND MODERATE T-WAVE ABNORMALITY, CONSIDER INFERIOR ISCHEMIA [-0.1+ mV T-WAVE IN II/aVF] Compared to ECG 10/13/2020 21:26:15 Sinus rhythm no longer present T-wave abnormality still present Possible ischemia still present Electronically Signed On 04-26-2022 17:09:31 VETERANS' COORDINATOR by Wolfgang Laboy M.D. [id number]
[2022-04-25] MEDS: sodium chloride 0.9% 1,000 ML 999 ML IV (21:04)
[2022-04-25] MEDS: piperacillin-tazobactam 4.5 GM in sodium chloride 0.9% (plus) 50 ML IV (21:04)
[2022-04-25] MEDS: vancomycin 1,000 MG in sodium chloride 0.9% 250 ML 250 MG IV (21:04)
[2022-04-25 21:25] LABS: Basophils % 0.8 %; Eosinophils # 0.1 10^3/uL (0.0-0.8); Hematocrit 37.5 % (37.0-47.0); Hemoglobin 12.5 g/dL (11.5-15.3); Lymphocytes % 19.8 %; Mean Corpuscular HGB Conc 33.3 g/dL (30.0-36.0); Mean Corpuscular Volume 95.9 fl (81-99); Mean Platelet Volume 10.9 fL (7.4-10.4); Monocytes # 1.2 10^3/uL (0.2-0.9); Neutrophils # 2.89 10^3/uL (1.8-7.7); Nucleated Red Blood Cells % 0 %; Platelet Count 242 10^3/cmm (130-400); Red Blood Count 3.91 10^6/uL (4.1-5.3); Red Cell Distribution Width 13.2 % (12.1-15.1); White Blood Count 5.3 10^3/uL (4.0-10.0)
[2022-04-25 21:41] LABS: Alanine Aminotransferase 23 U/L (0-33); Albumin Level 4.2 g/dL (3.5-5.2); Alkaline Phosphatase 135 U/L (35-105); Aspartate Amino Transferase 42 U/L (0-32); Blood Urea Nitrogen 18 mg/dL (6-20); C Reactive Protein 37.1 mg/L (0.0-4.9); Calcium 9.1 mg/dL (8.5-10.5); Carbon Dioxide 24 mmol/L (22-29); Chloride 98 mmol/L (98-107); Globulin 3.3 g/dL (1.3-4.6); Glomerular Filtration Rate 119.9 mL/min (90-130); Glucose 91 mg/dL (65-115); Lactate (Lactic Acid level) 2.2 mmol/L (0.5-2.2); Osmolality Calculated 277 mOsm/kg (285-295); Sodium 133 mmol/L (136-145); Total Bilirubin 0.2 mg/dL (0.15-1.2); Total Protein 7.5 g/dL (6.6-8.7)
[2022-04-25 21:48] LABS: Procalcitonin 0.39 ng/mL (0-0.5)
--- NOTE | 2022-04-25 22:04 | ED_ITS ---
HPI - Fever General: Chief Complaint: Fever Stated Complaint: FEVER Time Seen by Provider: 04/25/22 20:37 Source: patient History of Present Illness: 27-year-old female with a history of cerebral palsy, developmental delay, seizure disorder. She lives in a snf. She presents with a significant temperature, 1016 here. She has been tachycardic. Perhaps mildly less responsive although the patient does not usually respond to verbal stimuli at all MD elicited complaint: fever Pertinent past history: other Onset (ago): hour(s) Context: other Exacerbating factors: other Associated symptoms: Reports cough and short of breath; Deny chills, rhinorrhea or vomiting Review of Systems General: Reports: ROS unobtainable due to medical condition Const: Reports: fever(s); Denies: chills Resp: Reports: dyspnea and productive cough GI: Denies: vomiting PFSH ED PFSH: Medical History Acute hyponatremia Cerebral palsy Hyponatremia Hypothyroidism Panhypopituitarism Perforated tympanic membrane Seizure disorder Surgical History S/P percutaneous endoscopic gastrostomy (PEG) tube placement Status post VNS (vagus nerve stimulator) placement ? Family History Other Diabetes Hyperlipidemia Social History Alcohol intake: never History of recent travel: No Physical Exam Const: GENERAL APPEARANCE: ill appearing and frail appearing HENMT: COMMON NORMALS: Normal external nose present FACE & SINUS: face symmetric NOSE: Normal external nose present and Normal nares present Eye: COMMON NORMALS: Equal, round and reactive pupils present and EOMs intact bilaterally PUPIL: Yes Equal, round and reactive pupils present Neck/C-Spine: GENERAL: Yes trachea midline Chest: CHEST: Yes Symmetrical chest wall rise Resp: EFFORT & INSPECTION: Yes decreased respiratory effort AUSCULTATION: rhonchi and diminished lung sounds Cardio: COMMON NORMALS: regular rhythm RATE: tachycardic RHYTHM: regular rhythm GI: COMMON NORMALS: Normal to inspection, nondistended, normoactive bowel sounds present, Soft to palpation and non-tender PALPATION: Yes Soft to palpation Extremity: COMMON NORMALS: no pedal edema Neuro: FREDIS COMA SCALE: document GCS findings [place] [address] coma scale eye opening: Spontaneous [place] [address] coma scale verbal response: None Fredis coma scale motor response: Localising Fredis coma scale total score: 10 Course Vital Signs: Vital signs: Vital Signs Temperature 99.4 F 04/26/22 03:32 Pulse Rate 102 H 04/26/22 03:32 Respiratory Rate 22 H 04/26/22 03:32 Blood Pressure 99/69 04/26/22 03:32 Pulse Oximetry 100 04/26/22 03:32 Oxygen Delivery Me thod 04/26/22 03:32 Oxygen Flow Rate 3 04/26/22 03:32 MDM - Fever Medical Decision Making Patient is hypoxic and tachycardic. She is been battling a bit of a low blood pressure here despite a 30 mL/kg bolus. This is improved to some degree. Chest x-ray is consistent with viral pneumonitis. She swabs positive for influenza A. She is covered empirically with antibiotics given her history. Lactic acid is negative. She will be admitted to the floor with sepsis hypotension influenza A pneumonia Lab Data 04/25/22 21:08 04/25/22 21:08 Radiology Impressions Chest X-Ray 04/25/22 20:50 IMPRESSION: 1. Poor inspiratory effort with some crowding of pulmonary markings and possible accentuation of the apparent heart size. 2. Mild peribronchial thickening and/or mild perihilar linear markings consistent with bronchitis and/or viral pneumonitis and/or reactive airway disease and/or atypical pulmonary interstitial edema. Laboratory Results WBC 5.3 10^3/uL (4.0-10.0) 04/25/22 21:08 RBC 3.91 10^6/uL (4.1-5.3) L 04/25/22 21:08 Hgb 12.5 g/dL (11.5-15.3) 04/25/22 21:08 Hct 37.5 % (37.0-47.0) 04/25/22 21:08 MCV 95.9 fl (81-99) 04/25/22 21:08 MCH 32.0 pg (28.0-34.0) 04/25/22 21:08 MCHC 33.3 g/dL (30.0-36.0) 04/25/22 21:08 RDW 13.2 % (12.1-15.1) 04/25/22 21:08 Plt Count 242 10^3/cmm (130-400) 04/25/22 21:08 MPV 10.9 fL (7.4-10.4) H 04/25/22 21:08 Neut % (Auto) 55.0 % 04/25/22 21:08 Lymph % (Auto) 19.8 % 04/25/22 21:08 [place] % (Auto) 23.0 % 04/25/22 21:08 Eos % (Auto) 1.0 % 04/25/22 21:08 Baso % (Auto) 0.8 % 04/25/22 21:08 Neut # (Auto) 2.89 10^3/uL (1.8-7.7) 04/25/22 21:08 Lymph # (Auto) 1.0 10^3/uL (0.8-4.8) 04/25/22 21:08 [place] # (Auto) 1.2 10^3/uL (0.2-0.9) H 04/25/22 21:08 Eos # (Auto) 0.1 10^3/uL (0.0-0.8) 04/25/22 21:08 Baso # (Auto) 0.0 10^3/uL (0.0-0.1) 04/25/22 21:08 Nucleated RBC % (auto) 0 % 04/25/22 21:08 Nucleated RBCs # 0.0 /100WBC 04/25/22 21:08 Specimen Type Arterial 04/25/22 22:00 Sample Site Radial, left 04/25/22 22:00 ABG pH 7.42 (7.35-7.45) 04/25/22 22:00 ABG pCO2 37.9 mmHg (35-45) 04/25/22 22:00 ABG pO2 95.0 mmHg (80.0-100.0) 04/25/22 22:00 ABG HCO3 24.4 mmol/L (22-26) 04/25/22 22:00 ABG Base Excess 0.0 mmol/L (-2.0-2.0) 04/25/22 22:00 Suresh Test Pos 04/25/22 22:00 Hematocrit 34.5 % (37-47) L 04/25/22 22:00 O2 Delivery Device Nc 04/25/22 22:00 O2 Liters/Min 4.0 % 04/25/22 22:00 Biztalk Administrator ID [email or web address] 04/25/22 22:00 Sodium 133 mmol/L (136-145) L 04/25/22 21:08 Potassium 4.0 mmol/L (3.5-5.1) 04/25/22 21:08 Chloride 98 mmol/L (98-107) 04/25/22 21:08 Carbon Dioxide 24 mmol/L (22-29) 04/25/22 21:08 Anion Gap 15.0 (5-19) 04/25/22 21:08 BUN 18 mg/dL (6-20) 04/25/22 21:08 Creatinine 0.6 mg/dL (0.5-0.9) 04/25/22 21:08 GFR Calculation 119.9 mL/min (90-130) 04/25/22 21:08 Glucose 91 mg/dL (65-115) 04/25/22 21:08 Calculated Osmolality 277 mOsm/kg (285-295) L 04/25/22 21:08 Lactate 2.2 mmol/L (0.5-2.2) 04/25/22 21:08 Calcium 9.1 mg/dL (8.5-10.5) 04/25/22 21:08 Total Bilirubin 0.2 mg/dL (0.15-1.2) 04/25/22 21:08 AST 42 U/L (0-32) H 04/25/22 21:08 ALT 23 U/L (0-33) 04/25/22 21:08 Alkaline Phosphatase 135 U/L (35-105) H 04/25/22 21:08 C-Reactive Protein 37.1 mg/L (0.0-4.9) H 04/25/22 21:08 Total Protein 7.5 g/dL (6.6-8.7) 04/25/22 21:08 Albumin 4.2 g/dL (3.5-5.2) 04/25/22 21:08 Globulin 3.3 g/dL (1.3-4.6) 04/25/22 21:08 Procalcitonin 0.39 ng/mL (0-0.5) 04/25/22 21:08 Urine Color Yellow (Yellow) 04/26/22 00:54 Urine Appearance Clear (CLEAR) 04/26/22 00:54 Urine pH 5 (5-7) 04/26/22 00:54 Ur Specific [place] 1.000 (1.005-1.030) L 04/26/22 00:54 Urine Protein Neg (Negative) 04/26/22 00:54 Urine Glucose (UA) Norm (Normal) 04/26/22 00:54 Urine Ketones Negative (Negative) 04/26/22 00:54 Urine Blood Neg (Negative) 04/26/22 00:54 Urine Nitrate Negative (Negative) 04/26/22 00:54 Urine Bilirubin Neg (Negative) 04/26/22 00:54 Urine Urobilinogen Neg mg/dL (Negative) 04/26/22 00:54 Ur Leukocyte Esterase Negative (Negative) 04/26/22 00:54 Nasal Influ A H1 2009 PCR Detected (NOT DETECT) A 04/25/22 21:15 Adenovirus (PCR) Not detected (NOT DETECT) 04/25/22 21:15 C. pneumoniae DNA (PCR) Not detected (NOT DETECT) 04/25/22 21:15 Coronavirus 229E (PCR) Not detected (NOT DETECT) 04/25/22 21:15 Human Metapneumovir PCR Not detected (NOT DETECT) 04/25/22 21:15 Influenza A (H1) PCR Not detected (NOT DETECT) 04/25/22 21:15 Influenza A (H3) PCR Not detected (NOT DETECT) 04/25/22 21:15 Influenza Type A (PCR) Detected (NOT DETECT) A 04/25/22 21:15 Influenza Type B (PCR) Not detected (NOT DETECT) 04/25/22 21:15 M. pneumoniae (PCR) Not detected (NOT DETECT) 04/25/22 21:15 Parainfluenza 1 (PCR) Not detected (NOT DETECT) 04/25/22 21:15 Parainfluenza 2 (PCR) Not detected (NOT DETECT) 04/25/22 21:15 Parainfluenza 3 (PCR) Not detected (NOT DETECT) 04/25/22 21:15 Parainfluenza 4 (PCR) Not detected (NOT DETECT) 04/25/22 21:15 RSV Type A (PCR) Not detected (NOT DETECT) 04/25/22 21:15 RSV Type B (PCR) Not detected (NOT DETECT) 04/25/22 21:15 Entero/Rhino (PCR) Detected (NOT DETECT) A 04/25/22 21:15 SARS-CoV-2 (PCR) Not detected (NOT DETECT) 04/25/22 21:15 Discharge Plan Discharge Patient Disposition: Admitted As Inpatient Admit Provider: Yolanda Yanez Clinical Impression: Pneumonia, Sepsis, Influenza A Condition: Stable Coding Level of Care Code ED Splicing Supervisor for Lobito Paula
[2022-04-25] MEDS: acetaminophen 650 mg/20.3 mL UDC PO (22:10)
[2022-04-25 22:11] LABS: ABG PCO2 37.9 mmHg (35-45); ABG PH Result 7.42 (7.35-7.45); Arterial Blood Gas Hematocrit 34.5 % (37-47); Blood Gas Allen Test Pos; Blood Gas Sample Type Arterial; HCO3 ABG 24.4 mmol/L (22-26)
[2022-04-25 22:12] LABS: Blood Gas Sample Site Radial, left; Oxygen Device NC
[2022-04-25 22:43] VITALS: BP 90/60; PULSE 108; O2SAT 99
[2022-04-25 23:19] LABS: Adenovirus Not Detected (NOT DETECT); Chlamydia Pneumoniae Not Detected (NOT DETECT); Coronavirus 229E,HKU1,NL63,OC4 Not Detected (NOT DETECT); Human Metapneumovirus Not Detected (NOT DETECT); Human Rhinovirus/Enterovirus Detected (NOT DETECT); Influenza A Detected (NOT DETECT); Influenza A H1 Not Detected (NOT DETECT); Influenza A H1-2009 Detected (NOT DETECT); Influenza A H3 Not Detected (NOT DETECT); Influenza B Not Detected (NOT DETECT); Mycoplasma Pneumoniae Not Detected (NOT DETECT); Parainfluenza Virus Type 1 Not Detected (NOT DETECT); Parainfluenza Virus Type 2 Not Detected (NOT DETECT); Parainfluenza Virus Type 3 Not Detected (NOT DETECT); Parainfluenza Virus Type 4 Not Detected (NOT DETECT); Respiratory Syncytial Virus A Not Detected (NOT DETECT); Respiratory Syncytial Virus B Not Detected (NOT DETECT); SARS-COV-2 Not Detected (NOT DETECT)
[2022-04-25] MEDS: sodium chloride 0.9% 500 ML 999 ML IV (23:35)
[2022-04-26] VITALS (11 sets, daily range): BP systolic 91–104; BP diastolic 54–73; PULSE 97–112; RESP 16–107; TEMP 37.3–39.4; O2SAT 92–100
[2022-04-26 00:59] LABS: Add Urine Microscopic? NO; Charge for UA Resulting for Rev
[2022-04-26 01:13] LABS: Urine Appearance Clear (CLEAR); Urine Color Yellow (Yellow); pH Urine 5 (5-7)
[2022-04-26 01:14] LABS: Bilirubin Urine Neg (Negative); Blood Urine Neg (Negative); Glucose Urine UA Norm (Normal); Ketones Urine Negative (Negative); Leukocyte Esterase Urine Negative (Negative); Nitrate Urine Negative (Negative); Protein Urine Neg (Negative); Urobilinogen Urine Neg (Negative)
--- NOTE | 2022-04-26 02:36 | PC.NURSE ---
Pt arrived via [facility] w/ER staff at side. Pt does not appear to be in any acute distress at this time. Pt has sood, intact drng to bsdb. Pt is on O2 @ 3 l/m via n/c w/sat maintained 100% at this time. No s/sx of pain voiced or seen at this time. Pt made comfortable.
[2022-04-26] MEDS: sodium chloride 0.9% 1,000 ML 100 ML IV ×2 (02:46→12:01)
--- NOTE | 2022-04-26 03:04 | PC.NURSE ---
Spoke w/Ike Forrester RN at [facility] regarding pt vaccine status, updated vaccine records are not available for this year. Last flu vaccine documented was 03/27/21 and last Covid Vaccine was 01/23/21. F/u on weight since ER record stated wt and 110 and this nurse had a wt of 159.9. [facility] has last document wt of 151 on 04/20.
--- NOTE | 2022-04-26 03:15 | P.HP_ITS ---
Providers/Chief Complaint Admitting Physician: Yolanda Yanez MD Primary Care Provider: Kelvin Naqvi Jr, MD Chief Complaint: FEVER History of Present Illness Jennyfer Bliss is a 27 year old female with cerebral palsy, spastic quadriplegia, requiring total assistance, PEG tube feeding, chronic hyponatremia, hypothyroidism, panhypopituitarism, seizure disorder. Patient is not able to contribute in her history therefore history is gathered by talking to the ER physician. It appears patient was sent over from the [place] [facility] to the ER today due to chief complaints of fever going up to 102 Fahrenheit over the past 3 to 4 days, tachycardia and less responsive than usual. In the emergency room she was noted to be febrile to 101.6 Fahrenheit, chest x-ray showed peribronchial thickening consistent with bronchitis or viral pneumonitis. She tested positive for influenza and entero-/rhinovirus. Review of Systems General: Reports: 10 or more systems reviewed and unremarkable except in HPI and below Const: Denies: fever(s), chills or body aches Eyes: Denies: change in vision, blurry vision or photophobia ENMT: Reports: hoarseness; Denies: throat pain, enlarged tonsils, odynophagia or nasal congestion Card: Denies: chest pain, palpitations, irregular heart rhythm, edema, swelling of feet/ankles, lightheadedness, pre-syncope, dyspnea on exertion or orthopnea Resp: Denies: dyspnea, productive cough, non-productive cough, wheezing, stridor, pain on inspiration, change in phlegm color, hemoptysis or chest congestion GI: Denies: abdominal pain, nausea, vomiting, hematemesis, coffee ground emesis, dysphagia, heartburn, diarrhea, constipation, GI cramping, change in stool character, hematochezia or melena : Denies: flank pain, difficulty voiding, dysuria, urinary frequency, urinary urgency, urinary hesitancy or hematuria Musc: Denies: neck pain, back pain, extremity pain, joint swelling, joint warmth or deformity Neuro: Denies: headache(s), numbness in extremities, weakness in extremities, sensory changes, difficulty walking, frequent falls, dizziness, vertigo, behavioral changes, Slurred speech present or seizure-like activity Psych: Denies: anxiety, depression, suicidal ideation or homicidal ideation Endo: Denies: polyuria, polydipsia, tired all the time, cold intolerance or hot flashes Brendan/Lymph: Denies: easy bruising or easy bleeding Medications/Allergies Home Medications Medication Instructions Recorded Confirmed Last Taken Type lamotrigine 200 mg tablet 400 mg PO BID@0700,1900 04/01/20 11/19/21 10/24/20 History rufinamide 400 mg tablet (Banzel) 1,400 mg PO BID@0700,1900 04/01/20 11/19/21 10/24/20 History hydrocortisone 10 mg tablet 5 mg PO BID@0700,1900 08/25/20 11/19/21 10/24/20 History levetiracetam 250 mg tablet 1,500 mg PO BID@0700,1900 10/24/20 11/19/21 10/24/20 History (Kesarara) bisacodyl 5 mg tablet,delayed 10 mg PO DAILY PRN Constipation 10/31/20 11/19/21 Unknown Rx release (see protocol) #30 tabs famotidine 20 mg tablet 20 mg PO BID #60 tabs 10/31/20 11/19/21 Unknown Rx lactulose 20 gram/30 mL oral 10 g (15 mL) PO DAILY #1,200 mL 10/31/20 11/19/21 Unknown Rx solution magnesium hydroxide 400 mg/5 mL 30 ml peg-tube BEDTIME PRN 10/31/20 11/19/21 Unknown Rx oral suspension (Milk of Magnesia) constipation #3,000 mL sennosides 8.6 mg tablet (Senna 17.2 mg PO BEDTIME PRN 10/31/20 11/19/21 Unknown Rx Lax) constipation #30 tabs white petrolatum-mineral oil 57.3 1 applic eye-both BEDTIME #3.5 10/31/20 11/19/21 Unknown Rx %-42.5 % eye ointment (Refresh grams P.M.) clonazepam 1 mg tablet 1 mg PO TID@07,12,19 #21 tabs 11/02/20 11/19/21 Unknown Rx phenobarbital 60 mg tablet 60 mg PO BID@0700,1900 #14 tabs 11/02/20 11/19/21 Unknown Rx levothyroxine 112 mcg tablet 112 mcg PO DAILY #90 tabs 04/13/21 11/19/21 Unknown Rx Allergies Allergy/AdvReac Type Severity Reaction Status Date / Time diphenhydramine Allergy ADR-Seizure Verified 03/31/21 15:15 [From Benadryl] PFSH Acute 2 PFSH: Medical History Acute hyponatremia Cerebral palsy Hyponatremia Hypothyroidism Panhypopituitarism Perforated tympanic membrane Seizure disorder Surgical History S/P percutaneous endoscopic gastrostomy (PEG) tube placement Status post VNS (vagus nerve stimulator) placement ? Family History Other Diabetes Hyperlipidemia Social History Alcohol intake: never History of recent travel: No Vitals/I&O/Wt Last Vital Signs Temp 99.1 F 04/26/22 02:28 Pulse 108 H 04/26/22 02:28 Resp 20 H 04/26/22 02:28 BP 93/60 04/26/22 02:28 Pulse Ox 100 04/26/22 02:28 O2 Del Method 04/26/22 02:28 O2 Flow Rate 3 04/26/22 02:28 04/25/22 04/25/22 04/26/22 14:59 22:59 06:59 Intake Total 1300 / 1300 Balance 1300 / 1300 Weight last 48 hrs Weight 72.376 kg Weight 49.895 kg Physical Exam Narrative: General: Chronically ill-appearing frail lady, AO x1 HEENT: PERRLA, pupils bilaterally equal and reactive, pallors not present Chest: Scattered Wheezing to auscultation bilaterally CVS: S1-S2 regular, no murmurs, no tachycardia, no gallops, no rubs Abdomen: Soft, nontender, no organomegaly, bowel sounds present, PEG in place Neuro: non verbal, bebound, winces to pain Urinary Catheter Management: Sequeira: Cath Placed During This Visit: yes Urinary Catheter Date of Insertion: 04/25/22 Urinary Catheter Time of Insertion: 21:45 Data 04/25/22 21:08 04/25/22 21:08 Micro: Microbiology 04/25/22 21:35 Blood Culture - Preliminary Blood SPECIMEN COLLECTED 04/25/22 21:08 Blood Culture - Preliminary Blood SPECIMEN COLLECTED A&P Assessment and plan (1) Influenza A: (2) Pneumonia: Plan Patient presented from [place] [facility] with chief complaints of fever, coughing, less responsive than usual over the last 3 to 4 days. Upon evaluation found to have bilateral chest infiltrates, wheezing on auscultation, influenza a and entero-/rhinovirus positive on respiratory viral panel. Additionally blood pressure upon presentation was noted to be 80 systolic, not significantly improved after IV fluid boluses. Review of prior hospitalizations reveals that patient systolic blood pressure ranges between 75-86 systolic on several occasions. Suspect that this may be her baseline, she may have a component of autonomic dysfunction as well. For now we will continue fluids normal saline at 100 cc an hour. Start Tamiflu 75 mg via PEG tube twice daily. Empiric antibiotic coverage with levofloxacin given presence of chest infiltrates. Albuterol inhalation as needed given scattered wheezing bilaterally. Check sputum culture, MRSA nares. Continue her home medications including multiple antiseizure meds, hydrocortisone maintenance. Admitted to [facility] Medical Necessity Statement*: Anticipate greater than 2 midnight admission for management of influenza pneumonia, need for IV fluids, IV antibiotics, high risk of decompensation given underlying risk factors by way of CP. 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
[2022-04-26] MEDS: acetaminophen 325 mg Tablet 650 MG PO ×3 (03:43→18:02)
[2022-04-26] MEDS: enoxaparin 40 mg/0.4 mL Syringe SUBCUT (03:44)
--- NOTE | 2022-04-26 04:20 | PC.PHAR ---
Pharmacokinetic dosing service Date: 04/25/22 Time: 042 Objective: Patient: Jennyfer Bliss Floor: [id number] Age: 27 yo Serum creatinine: 0.6 mg/dL Height: 65.0 Inches Weight (kg): 72.376 Diagnosis: Relevant medical/social history: Cultures and sensitivities: Other labs: Assessment: IBW (kg): 57.00 Dosing wt(kg): 72.376 Estimated Creatinine clearance (ml/min): 126.7 CRCL method: Cockcroft and Gault using ibw(default). Drug selected: Vancomycin Loading dose (mg): 0 Vd (liters): 65.1 (factor used: 0.9 L/kg) Hector (hr-1): 0.110 Half life (hrs): 6.30 Recommended dose: 1250 mg Interval: 8 hrs Infusion time (hrs): 1.5 Predicted peak (mcg/mL): 30.2 Predicted trough (mcg/mL): 14.77 Total body weight is being used for vancomycin dosing. Renal function is stable [ ] /unstable [ ] Recommendations: Give Vancomycin 1250 mg q 8 hrs with an expected Cpeak of 30.2 mcg/ml and an expected Ctrough of 14.77 mcg/ml Renal dosing of other antibiotics (review renal dosing of other medications and list guidelines here): Thank you for the consult, will continue to follow. Signature: Maggie Hayes [facility]
[2022-04-26] MEDS: vancomycin 1,250 MG/250 ML PIGGYBACK 250 MG IV (04:46)
--- NOTE | 2022-04-26 07:50 | PC.PHAR ---
elian from [facility] is fatimo minaya
[2022-04-26] MEDS: hydrocortisone 10 mg Tablet 5 MG PEG-TUBE (08:47)
[2022-04-26] MEDS: lactulose oral liq 20 gm/30 mL UDC 10 GM PEG-TUBE (08:48)
[2022-04-26] MEDS: levothyroxine 112 mcg Tablet PEG-TUBE (08:48)
[2022-04-26] MEDS: pantoprazole DR 40 mg Tablet PO (08:48)
[2022-04-26] MEDS: famotidine 20 mg Tablet PEG-TUBE ×2 (08:48→17:17)
[2022-04-26] MEDS: CLONazepam 1 mg Tablet PEG-TUBE ×3 (08:48→18:02)
[2022-04-26] MEDS: levofloxacin-dextrose 5 % 750 MG/150 ML PREMIX 100 MG IV (10:17)
--- NOTE | 2022-04-26 14:49 | PM.PN ---
Subjective Subjective: She appears awake, but is nonverbal, does not follow directions. Vitals/I&O/Wt Last Vital Signs Temp 99.2 F 04/26/22 08:00 Pulse 107 H 04/26/22 14:42 Resp 20 H 04/26/22 14:42 BP 104/69 04/26/22 08:00 Pulse Ox 98 04/26/22 14:42 O2 Del Method 04/26/22 14:42 O2 Flow Rate 3 04/26/22 14:42 04/25/22 04/26/22 04/26/22 22:59 06:59 14:59 Intake Total 1300 / 1300 490 / 1790 1075 / 1075 Output Total 525 / 525 800 / 800 Balance 1300 / 1300 -35 / 1265 275 / 275 Weight last 48 hrs Weight 72.631 kg Weight 72.376 kg Weight 49.895 kg Physical Exam Narrative: Spastic quadriplegia. She is awake, but making no eye contact, not attempting to communicate. Does not follow directions. Const: ORIENTATION/CONSCIOUSNESS: Yes awake HENMT: COMMON NORMALS: oropharynx normal Neck/C-Spine: COMMON NORMALS: no JVD Resp: COMMON NORMALS: normal respiratory effort and clear to auscultation bilaterally AUSCULTATION: clear to auscultation bilaterally Cardio: COMMON NORMALS: no JVD, regular rhythm, S1 normal heart sound present, S2 normal heart sound present and No murmurs present (Cardio) RHYTHM: regular rhythm HEART SOUNDS: S1 normal heart sound present and S2 normal heart sound present GI: COMMON NORMALS: Normal to inspection, nondistended, normoactive bowel sounds present, Soft to palpation and non-tender PALPATION: Yes Soft to palpation Extremity: COMMON NORMALS: no joint enlargement and no pedal edema Urinary Catheter Management: Sequeira: Cath Placed During This Visit: yes Reason for Continuing Indwelling Catheter: Acute Urinary Retention or Obstruction Urinary Catheter Date of Insertion: 04/25/22 Urinary Catheter Time of Insertion: 21:45 Data 04/25/22 21:08 04/25/22 21:08 Micro: Microbiology 04/26/22 03:26 MRSA Culture - Final Nose 04/25/22 21:35 Blood Culture - Preliminary Blood SPECIMEN COLLECTED 04/25/22 21:08 Blood Culture - Preliminary Blood SPECIMEN COLLECTED A&P Assessment and plan (1) Influenza A: Notified of worsening of rash or shortness of oseltamavir. Also pharmacies in town as well. Continue supportive care. Continue oxygen support, wean down as tolerated. Albuterol as needed. Antitussives as needed. Hydrocortisone. Blood pressure currently appears to be at baseline. Continue to monitor. (2) Pneumonia: With possible superimposed bacterial pneumonia, empirically continue antibiotic coverage with Levaquin. Follow-up sputum culture if able to provide. Follow up blood culture. Continue IV fluid for now. Nasal MRSA came back positive. We will empirically add vancomycin for now. (3) Rhinovirus infection: Continue supportive care as above. Plan Continue her home medications including multiple antiseizure meds, hydrocortisone maintenance. Attestations Medical Necessity Statement*: Continue admission for assessment management of suspected bacterial superinfection/pneumonia with influenza A pneumonia, rhinovirus infection in a lady with cerebral palsy, spastic quadriplegia requiring total assistance. 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
[2022-04-26] MEDS: hydrocortisone 10 mg Tablet PO (17:17)
[2022-04-26] MEDS: lamoTRIgine 100 mg Tablet 400 MG PEG-TUBE (18:02)
[2022-04-26] MEDS: hydrocortisone 10 mg Tablet 15 MG PEG-TUBE (18:02)
[2022-04-26] MEDS: guaiFENesin-dextromethorphan UDC 10 mL 5 ML PEG-TUBE (18:02)
[2022-04-26] MEDS: nystatin powder 15 gm Btl 1 APPLIC TOPICAL (18:02)
[2022-04-26] MEDS: PHENobarbital 32.4 mg Tablet 64.8 MG PEG-TUBE (18:04)
[2022-04-27] VITALS (7 sets, daily range): BP systolic 94–114; BP diastolic 64–80; PULSE 80–93; RESP 15–18; TEMP 36.5–38.6; O2SAT 94–99
[2022-04-27] MEDS: sodium chloride 0.9% 1,000 ML 100 ML IV (02:38)
[2022-04-27] MEDS: enoxaparin 40 mg/0.4 mL Syringe SUBCUT (03:35)
[2022-04-27 06:35] LABS: Alanine Aminotransferase 28 U/L (0-33); Albumin Level 3.2 g/dL (3.5-5.2); Alkaline Phosphatase 92 U/L (35-105); Blood Urea Nitrogen 6 mg/dL (6-20); Calcium 8.2 mg/dL (8.5-10.5); Carbon Dioxide 21 mmol/L (22-29); Chloride 97 mmol/L (98-107); Globulin 2.7 g/dL (1.3-4.6); Glomerular Filtration Rate 266.9 mL/min (90-130); Glucose 72 mg/dL (65-115); Osmolality Calculated 258 mOsm/kg (285-295); Sodium 126 mmol/L (136-145); Total Bilirubin 0.2 mg/dL (0.15-1.2); Total Protein 5.9 g/dL (6.6-8.7)
[2022-04-27 06:40] LABS: Anion Gap 12.1 (5-19); Potassium 4.1 mmol/L (3.5-5.1)
[2022-04-27] MEDS: PHENobarbital 32.4 mg Tablet 64.8 MG PEG-TUBE ×2 (06:40→17:54)
[2022-04-27] MEDS: hydrocortisone 10 mg Tablet 15 MG PEG-TUBE ×2 (06:40→17:56)
[2022-04-27 06:41] LABS: Aspartate Amino Transferase 69 U/L (0-32); Hematocrit 30.4 % (37.0-47.0); Hemoglobin 10.2 g/dL (11.5-15.3); Mean Corpuscular HGB Conc 33.6 g/dL (30.0-36.0); Mean Corpuscular Hemoglobin 31.7 pg (28.0-34.0); Mean Corpuscular Volume 94.4 fl (81-99); Platelet Count 150 10^3/cmm (130-400); Red Blood Count 3.22 10^6/uL (4.1-5.3); Red Cell Distribution Width 12.7 % (12.1-15.1); White Blood Count 3.6 10^3/uL (4.0-10.0)
[2022-04-27] MEDS: acetaminophen 325 mg Tablet 650 MG PO ×2 (06:41→21:54)
[2022-04-27] MEDS: CLONazepam 1 mg Tablet PEG-TUBE ×3 (06:42→17:54)
[2022-04-27] MEDS: lamoTRIgine 100 mg Tablet 400 MG PEG-TUBE ×2 (06:43→17:56)
[2022-04-27] MEDS: guaiFENesin-dextromethorphan UDC 10 mL 5 ML PEG-TUBE ×2 (06:43→17:55)
[2022-04-27 07:13] LABS: Slide Review Slide Review Perform
[2022-04-27 07:15] LABS: Absolute Segmented Neutrophil 0.8 10/cmm (1.6-7.1); Band Neutrophils Absolute 0.1 10^3/cmm (0.0-1.2); Eosinophils 1 %; Lymphocytes 56 %; Lymphocytes Absolute 2.1 10^3/cmm (1.2-3.4); Monocytes Absolute 0.7 10^3/cmm (0.1-0.6); Segmented Neutrophils 21 %; Total Cells Counted 100 (0-100)
[2022-04-27 07:21] LABS: Platelet Estimate Normal (Normal)
[2022-04-27 07:23] LABS: Absolute Neutrophil 0.8 10^3/cmm (1.4-6.5)
[2022-04-27] MEDS: lactulose oral liq 20 gm/30 mL UDC 10 GM PEG-TUBE (08:49)
[2022-04-27] MEDS: levothyroxine 112 mcg Tablet PEG-TUBE (08:49)
[2022-04-27] MEDS: pantoprazole DR 40 mg Tablet PO (08:50)
[2022-04-27] MEDS: famotidine 20 mg Tablet PEG-TUBE ×2 (08:50→17:55)
[2022-04-27] MEDS: nystatin powder 15 gm Btl 1 APPLIC TOPICAL ×2 (08:50→17:55)
[2022-04-27] MEDS: levofloxacin-dextrose 5 % 750 MG/150 ML PREMIX 100 MG IV (10:18)
--- NOTE | 2022-04-27 13:18 | PM.PN ---
Subjective Subjective: She is nonverbal, not communicating, not following directions. Vitals/I&O/Wt Last Vital Signs Temp 98.1 F 04/27/22 11:24 Pulse 81 04/27/22 11:24 Resp 16 04/27/22 11:24 BP 94/64 04/27/22 11:24 Pulse Ox 99 04/27/22 11:24 O2 Del Method 04/27/22 11:24 O2 Flow Rate 2 04/27/22 11:05 04/26/22 04/27/22 04/27/22 22:59 06:59 14:59 Intake Total 1250 / 2325 250 / 2575 1130 / 1130 Output Total 400 / 1200 Balance 1250 / 1525 -150 / 1375 1130 / 1130 Weight last 48 hrs Weight 57.47 kg Weight 72.631 kg Weight 72.376 kg Weight 49.895 kg Physical Exam Narrative: Spastic quadriplegia. She is awake, but making no eye contact, not attempting to communicate. Does not follow directions. Const: ORIENTATION/CONSCIOUSNESS: Yes awake HENMT: COMMON NORMALS: oropharynx normal Neck/C-Spine: COMMON NORMALS: no JVD Resp: COMMON NORMALS: normal respiratory effort and clear to auscultation bilaterally AUSCULTATION: clear to auscultation bilaterally Cardio: COMMON NORMALS: no JVD, regular rhythm, S1 normal heart sound present, S2 normal heart sound present and No murmurs present (Cardio) RHYTHM: regular rhythm HEART SOUNDS: S1 normal heart sound present and S2 normal heart sound present GI: COMMON NORMALS: Normal to inspection, nondistended, normoactive bowel sounds present, Soft to palpation and non-tender PALPATION: Yes Soft to palpation Extremity: COMMON NORMALS: no joint enlargement and no pedal edema Urinary Catheter Management: Sequeira: Cath Placed During This Visit: yes Reason for Continuing Indwelling Catheter: Acute Urinary Retention or Obstruction Urinary Catheter Date of Insertion: 04/25/22 Urinary Catheter Time of Insertion: 21:45 Data 04/27/22 05:40 04/27/22 05:40 Micro: Microbiology 04/25/22 21:35 Blood Culture - Preliminary Blood NEGATIVE TO DATE 04/25/22 21:08 Blood Culture - Preliminary Blood NEGATIVE TO DATE 04/26/22 03:26 MRSA Culture - Final Nose A&P Assessment and plan (1) Influenza A: Today with neutrophilia requested reverse isolation. Additionally noted worsening hyponatremia, sodium at 126. Stop IV fluid. Change Levaquin from IV infusion to by PEG tube to eliminate D5 infusion. Notified of unfortunately national shortage of oseltamavir. Also pharmacies in town as well. Continue supportive care. Continue oxygen support, wean down as tolerated. Albuterol as needed. Antitussives as needed. Hydrocortisone. Blood pressure currently appears to be at baseline. Continue to monitor. (2) Pneumonia: With possible superimposed bacterial pneumonia, empirically continue antibiotic coverage with Levaquin and vancomycin. Follow-up sputum culture if able to provide. Follow up blood culture. Nasal MRSA came back positive. (3) Rhinovirus infection: Continue supportive care as above. Plan Continue her home medications including multiple antiseizure meds, hydrocortisone maintenance. Attestations Medical Necessity Statement*: Continue admission for assessment management of influenza A infection, rhinovirus, complicated by hyponatremia, neutropenia, as well as possible superimposed bacterial pneumonia. 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
[2022-04-27 16:15] LABS: Vancomycin Trough 19.2 ug/mL (10-15)
[2022-04-28 03:31] VITALS: BP 90/64; PULSE 78; RESP 17; TEMP 36.8; O2SAT 100
[2022-04-28] MEDS: enoxaparin 40 mg/0.4 mL Syringe SUBCUT (04:13)
[2022-04-28 05:00] LABS: Hematocrit 33.4 % (37.0-47.0); Hemoglobin 10.9 g/dL (11.5-15.3); Mean Corpuscular HGB Conc 32.6 g/dL (30.0-36.0); Mean Corpuscular Hemoglobin 31.6 pg (28.0-34.0); Mean Corpuscular Volume 96.8 fl (81-99); Mean Platelet Volume 11.2 fL (7.4-10.4); Platelet Count 157 10^3/cmm (130-400); Red Blood Count 3.45 10^6/uL (4.1-5.3); Red Cell Distribution Width 12.7 % (12.1-15.1); White Blood Count 4.1 10^3/uL (4.0-10.0)
[2022-04-28 05:22] LABS: Alanine Aminotransferase 29 U/L (0-33); Albumin Level 3.6 g/dL (3.5-5.2); Alkaline Phosphatase 97 U/L (35-105); Anion Gap 13.9 (5-19); Aspartate Amino Transferase 74 U/L (0-32); Blood Urea Nitrogen 7 mg/dL (6-20); Calcium 8.7 mg/dL (8.5-10.5); Carbon Dioxide 24 mmol/L (22-29); Chloride 98 mmol/L (98-107); Glomerular Filtration Rate 266.9 mL/min (90-130); Glucose 82 mg/dL (65-115); Osmolality Calculated 271 mOsm/kg (285-295); Potassium 3.9 mmol/L (3.5-5.1); Sodium 132 mmol/L (136-145); Total Bilirubin 0.2 mg/dL (0.15-1.2); Total Protein 6.6 g/dL (6.6-8.7)
[2022-04-28] MEDS: PHENobarbital 32.4 mg Tablet 64.8 MG PEG-TUBE (06:04)
[2022-04-28] MEDS: hydrocortisone 10 mg Tablet 15 MG PEG-TUBE (06:05)
[2022-04-28] MEDS: guaiFENesin-dextromethorphan UDC 10 mL 5 ML PEG-TUBE (06:05)
[2022-04-28] MEDS: acetaminophen 325 mg Tablet 650 MG PO ×2 (06:06→13:26)
[2022-04-28] MEDS: lamoTRIgine 100 mg Tablet 400 MG PEG-TUBE (06:06)
[2022-04-28] MEDS: CLONazepam 1 mg Tablet PEG-TUBE ×2 (06:07→12:15)
[2022-04-28 08:00] VITALS: BP 92/67; PULSE 79; RESP 20; TEMP 36.6; O2SAT 99
[2022-04-28] MEDS: pantoprazole DR 40 mg Tablet PO (08:35)
[2022-04-28] MEDS: famotidine 20 mg Tablet PEG-TUBE (08:35)
[2022-04-28] MEDS: levothyroxine 112 mcg Tablet PEG-TUBE (08:35)
[2022-04-28] MEDS: lactulose oral liq 20 gm/30 mL UDC 10 GM PEG-TUBE (08:35)
[2022-04-28] MEDS: levoFLOXacin 750 mg Tablet PEG-TUBE (08:35)
[2022-04-28 09:50] VITALS: PULSE 79; RESP 20; O2SAT 99
[2022-04-28] MEDS: nystatin powder 15 gm Btl 1 APPLIC TOPICAL (11:27)
[2022-04-28 11:45] VITALS: BP 99/76; PULSE 103; RESP 18; TEMP 36.6; O2SAT 96
--- NOTE | 2022-04-28 16:19 | PM.DCS ---
Discharge Providers Date of Admission: 04/26/22 01:28 Date of Discharge: April 28, 2022 Attending Provider at Admission: Yolanda Yanez MD Attending Provider at Discharge: Stone Moreno Primary Care Provider: Kelvin Naqvi Jr, MD Diagnoses at Discharge Discharge Diagnosis (1) Influenza A: Status: Acute (2) Pneumonia: Status: Acute (3) Rhinovirus infection: Status: Acute Reason for Visit Reason for Visit: FEVER Hospital Course Hospital Course 27-year-old lady with possible pelvic, especially quadriplegia, requiring total assistance, PEG tube feeding, chronic hyponatremia, hypothyroidism, panhypopituitarism, seizure disorder was admitted for cyst management due to fever 102 Fahrenheit over the preceding 3 To 4 days, tachycardia, less responsive than usual. Chest x-ray showed bronchial thickening with bronchitis or viral pneumonitis. She tested positive for influenza as well as entero-/rhinovirus on viral panel. Tamiflu was requested but unfortunately cannot be initiated due to national shortage, she received supportive care with oxygen support, albuterol inhalation due to bilateral wheezing. Was requiring up to 4 L nasal cannula oxygen initially which was gradually weaned down currently down to 2 L. Hypotension on presentation, blood pressures 80s systolic, received fluid challenge boluses. Empirically was also treated with antibiotics for possibility of superimposed bacterial infection. MRSA PCR positive indicated nasal carriage. Antibiotic coverage was broadened empirically with vancomycin while in the hospital. Hospitalization also complicated by transient episode of acute neutropenia, as well as hyponatremia sodium transiently down to 126. IV fluids were discontinued, Levaquin D5 continued patient was transition to tablet form. She remained less responsive initially, but gradually becoming more awake. Tachycardia has improved. Fevers so far have since subsided with last fever at 4 AM 04/27. Hyponatremia has improved, sodium is back to 132. As she is doing better she returns to continue her recovery at [facility] today. Discussed with her sister. Physical Exam Narrative: Spastic quadriplegia. Appears more alert today, moving spontaneously but making no eye contact, not attempting to communicate. Does not follow directions. Const: ORIENTATION/CONSCIOUSNESS: Yes awake HENMT: COMMON NORMALS: oropharynx normal Neck/C-Spine: COMMON NORMALS: no JVD Resp: COMMON NORMALS: normal respiratory effort and clear to auscultation bilaterally AUSCULTATION: clear to auscultation bilaterally Cardio: COMMON NORMALS: no JVD, regular rhythm, S1 normal heart sound present, S2 normal heart sound present and No murmurs present (Cardio) RHYTHM: regular rhythm HEART SOUNDS: S1 normal heart sound present and S2 normal heart sound present GI: COMMON NORMALS: Normal to inspection, nondistended, normoactive bowel sounds present, Soft to palpation and non-tender PALPATION: Yes Soft to palpation Extremity: COMMON NORMALS: no joint enlargement and no pedal edema Urinary Catheter Management: Sequeira: Cath Placed During This Visit: yes Reason for Continuing Indwelling Catheter: Acute Urinary Retention or Obstruction Urinary Catheter Date of Insertion: 04/25/22 Urinary Catheter Time of Insertion: 21:45 Discharge Data Studies Completed and Pending Completed Studies During Hospitalization Category Date Time Status XR chest 1V portable [id number] Stat Exams 04/25/22 20:50 Completed Pending at discharge Category Date Time Status Blood Culture Stat Lab 04/25/22 21:35 Results Radiology Impressions Chest X-Ray 04/25/22 20:50 IMPRESSION: 1. Poor inspiratory effort with some crowding of pulmonary markings and possible accentuation of the apparent heart size. 2. Mild peribronchial thickening and/or mild perihilar linear markings consistent with bronchitis and/or viral pneumonitis and/or reactive airway disease and/or atypical pulmonary interstitial edema. Laboratory Results WBC 4.1 10^3/uL (4.0-10.0) 04/28/22 04:52 RBC 3.45 10^6/uL (4.1-5.3) L 04/28/22 04:52 Hgb 10.9 g/dL (11.5-15.3) L 04/28/22 04:52 Hct 33.4 % (37.0-47.0) L 04/28/22 04:52 MCV 96.8 fl (81-99) 04/28/22 04:52 MCH 31.6 pg (28.0-34.0) 04/28/22 04:52 MCHC 32.6 g/dL (30.0-36.0) 04/28/22 04:52 RDW 12.7 % (12.1-15.1) 04/28/22 04:52 Plt Count 157 10^3/cmm (130-400) 04/28/22 04:52 MPV 11.2 fL (7.4-10.4) H 04/28/22 04:52 Neut % (Auto) Hospice Liaison 04/28/22 04:52 Lymph % (Auto) Hospice Liaison 04/28/22 04:52 [place] % (Auto) Hospice Liaison 04/28/22 04:52 Eos % (Auto) Hospice Liaison 04/28/22 04:52 Baso % (Auto) Hospice Liaison 04/28/22 04:52 Neut # (Auto) Hospice Liaison 04/28/22 04:52 Lymph # (Auto) Hospice Liaison 04/28/22 04:52 [place] # (Auto) Hospice Liaison 04/28/22 04:52 Eos # (Auto) Hospice Liaison 04/28/22 04:52 Baso # (Auto) Hospice Liaison 04/28/22 04:52 Nucleated RBC % (auto) Hospice Liaison 04/28/22 04:52 Total Counted 100 (0-100) 04/27/22 05:40 Atypical Lymphs % 1.0 % (0-5) 04/27/22 05:40 Absolute Neutrophils 0.8 10^3/cmm (1.4-6.5) L* 04/27/22 05:40 Segmented Neutrophils 21 % 04/27/22 05:40 Abs Segm Neuts (Man) 0.8 10/cmm (1.6-7.1) L 04/27/22 05:40 Band Neutrophils 2.0 % 04/27/22 05:40 Abs Band Neuts (Man) 0.1 10^3/cmm (0.0-1.2) 04/27/22 05:40 Absolute Lymphocytes 2.1 10^3/cmm (1.2-3.4) 04/27/22 05:40 Lymphocytes (Manual) 56 % 04/27/22 05:40 Monocytes (Manual) 19.0 % 04/27/22 05:40 Absolute Monocytes 0.7 10^3/cmm (0.1-0.6) H 04/27/22 05:40 Eosinophils (Manual) 1 % 04/27/22 05:40 Absolute Eosinophils 0.0 10^3/cmm (0.0-0.7) 04/27/22 05:40 Basophils (Manual) 0.0 % 04/27/22 05:40 Absolute Basophils 0.0 10^3/cmm (0.0-0.2) 04/27/22 05:40 Metamyelocytes 0.0 % 04/27/22 05:40 Myelocytes 0.0 % 04/27/22 05:40 Nucleated RBCs 1.0 /100WBC (0-1) 04/27/22 05:40 Nucleated RBCs # Hospice Liaison 04/28/22 04:52 Platelet Estimate Normal (Normal) 04/27/22 05:40 Specimen Type Arterial 04/25/22 22:00 Sample Site Radial, left 04/25/22 22:00 ABG pH 7.42 (7.35-7.45) 04/25/22 22:00 ABG pCO2 37.9 mmHg (35-45) 04/25/22 22:00 ABG pO2 95.0 mmHg (80.0-100.0) 04/25/22 22:00 ABG HCO3 24.4 mmol/L (22-26) 04/25/22 22:00 ABG Base Excess 0.0 mmol/L (-2.0-2.0) 04/25/22 22:00 Suresh Test Pos 04/25/22 22:00 Hematocrit 34.5 % (37-47) L 04/25/22 22:00 O2 Delivery Device Nc 04/25/22 22:00 O2 Liters/Min 4.0 % 04/25/22 22:00 Meat Cutter ID [email or web address] 04/25/22 22:00 Sodium 132 mmol/L (136-145) L 04/28/22 04:52 Potassium 3.9 mmol/L (3.5-5.1) 04/28/22 04:52 Chloride 98 mmol/L (98-107) 04/28/22 04:52 Carbon Dioxide 24 mmol/L (22-29) 04/28/22 04:52 Anion Gap 13.9 (5-19) 04/28/22 04:52 BUN 7 mg/dL (6-20) 04/28/22 04:52 Creatinine 0.3 mg/dL (0.5-0.9) L 04/28/22 04:52 GFR Calculation 266.9 mL/min (90-130) H 04/28/22 04:52 Glucose 82 mg/dL (65-115) 04/28/22 04:52 Calculated Osmolality 271 mOsm/kg (285-295) L 04/28/22 04:52 Lactate 2.2 mmol/L (0.5-2.2) 04/25/22 21:08 Calcium 8.7 mg/dL (8.5-10.5) 04/28/22 04:52 Total Bilirubin 0.2 mg/dL (0.15-1.2) 04/28/22 04:52 AST 74 U/L (0-32) H 04/28/22 04:52 ALT 29 U/L (0-33) 04/28/22 04:52 Alkaline Phosphatase 97 U/L (35-105) 04/28/22 04:52 C-Reactive Protein 37.1 mg/L (0.0-4.9) H 04/25/22 21:08 Total Protein 6.6 g/dL (6.6-8.7) 04/28/22 04:52 Albumin 3.6 g/dL (3.5-5.2) 04/28/22 04:52 Globulin 3.0 g/dL (1.3-4.6) 04/28/22 04:52 Procalcitonin 0.39 ng/mL (0-0.5) 04/25/22 21:08 Urine Color Yellow (Yellow) 04/26/22 00:54 Urine Appearance Clear (CLEAR) 04/26/22 00:54 Urine pH 5 (5-7) 04/26/22 00:54 Ur Specific Green 1.000 (1.005-1.030) L 04/26/22 00:54 Urine Protein Neg (Negative) 04/26/22 00:54 Urine Glucose (UA) Norm (Normal) 04/26/22 00:54 Urine Ketones Negative (Negative) 04/26/22 00:54 Urine Blood Neg (Negative) 04/26/22 00:54 Urine Nitrate Negative (Negative) 04/26/22 00:54 Urine Bilirubin Neg (Negative) 04/26/22 00:54 Urine Urobilinogen Neg mg/dL (Negative) 04/26/22 00:54 Ur Leukocyte Esterase Negative (Negative) 04/26/22 00:54 Nasal Influ A H1 2008 PCR Detected (NOT DETECT) A 04/25/22 21:15 Vancomycin Trough 19.2 ug/mL (10-15) H 04/27/22 15:15 Adenovirus (PCR) Not detected (NOT DETECT) 04/25/22 21:15 C. pneumoniae DNA (PCR) Not detected (NOT DETECT) 04/25/22 21:15 Coronavirus 229E (PCR) Not detected (NOT DETECT) 04/25/22 21:15 Human Metapneumovir PCR Not detected (NOT DETECT) 04/25/22 21:15 Influenza A (H1) PCR Not detected (NOT DETECT) 04/25/22 21:15 Influenza A (H3) PCR Not detected (NOT DETECT) 04/25/22 21:15 Influenza Type A (PCR) Detected (NOT DETECT) A 04/25/22 21:15 Influenza Type B (PCR) Not detected (NOT DETECT) 04/25/22 21:15 M. pneumoniae (PCR) Not detected (NOT DETECT) 04/25/22 21:15 Parainfluenza 1 (PCR) Not detected (NOT DETECT) 04/25/22 21:15 Parainfluenza 2 (PCR) Not detected (NOT DETECT) 04/25/22 21:15 Parainfluenza 3 (PCR) Not detected (NOT DETECT) 04/25/22 21:15 Parainfluenza 4 (PCR) Not detected (NOT DETECT) 04/25/22 21:15 RSV Type A (PCR) Not detected (NOT DETECT) 04/25/22 21:15 RSV Type B (PCR) Not detected (NOT DETECT) 04/25/22 21:15 Entero/Rhino (PCR) Detected (NOT DETECT) A 04/25/22 21:15 SARS-CoV-2 (PCR) Not detected (NOT DETECT) 04/25/22 21:15 Vitals Last Vital Signs Temp 97.9 F 04/28/22 11:45 Pulse 103 H 04/28/22 11:45 Resp 18 04/28/22 11:45 BP 99/76 04/28/22 11:45 Pulse Ox 96 04/28/22 11:45 O2 Del Method 04/28/22 11:45 O2 Flow Rate 2 04/28/22 09:50 Discharge Plan Discharge Patient Disposition: Xfer SNF Condition: Stable Prescriptions: New dextromethorphan-guaifenesin 10-100 mg/5 mL Syrup 5 ml peg-tube Q4H PRN (Reason: Cough) 7 Days Qty: 237 0RF levofloxacin 750 mg Tablet 750 mg peg-tube DAILY 5 Days Qty: 5 0RF doxycycline hyclate 100 mg tablet 100 mg PO BID 5 Days Qty: 10 0RF Continued lamotrigine 200 mg tablet 400 mg feeding tube BID rufinamide [Banzel] 400 mg tablet 1,400 mg feeding tube BID Refresh P.M. 57.3-42.5 % Ointment 1 applic eye-both BEDTIME Qty: 3.5 0RF magnesium hydroxide [Milk of Magnesia] 400 mg/5 mL Suspension 30 ml peg-tube BEDTIME PRN (Reason: constipation) Qty: 3000 0RF Tylenol 325 mg Tablet 650 mg feeding tube Q4H PRN (Reason: Pain) Senna-S 8.6-50 mg Tablet 1 tab PO BID clonazepam 1 mg tablet 1 mg feeding tube TID famotidine 20 mg tablet 20 mg feeding tube BID baclofen 10 mg Tablet 10 mg feeding tube TID bisacodyl 10 mg Suppository 10 mg OH DAILY PRN (Reason: Constipation) Enema 19-7 gram/118 mL Enema 118 ml OH DAILY PRN (Reason: Constipation) phenobarbital 30 mg tablet 60 mg feeding tube BID levetiracetam 750 mg tablet 1,500 mg PO BID levothyroxine 112 mcg tablet 112 mcg feeding tube DAILY lactulose 10 gram/15 mL solution 10 g feeding tube DAILY zinc oxide Paste See Rx Instructions .ROUTE .COMPLEX Rx Instructions: apply bid to affected area around peg tube Biofreeze (menthol) 4 % Gel See Rx Instructions .ROUTE .COMPLEX Rx Instructions: apply to left shoulder topically three times a day Enteral Feed Order See Rx Instructions .ROUTE .COMPLEX Rx Instructions: (jevity 1.5) at (240cc) qid via bolus per g-tube at 07:00,11:00,16:00,22:00 (flush with 100cc h2o after each feeding) Changed hydrocortisone 5 mg tablet 10 mg feeding tube BID Qty: 6 0RF Rx Instructions: 10mg for 3 days, then resume usual dose Discharge Orders: Discharge Order (Routine); Ordered 04/28/22 Ordered By: Stone Moreno Referrals: Kelvin Naqvi Jr, MD [Primary Care Provider] - 4-7 days Discharge Diet: Resume prior tube feeds Discharge Activity: Resume usual activity Patient Instructions: Decongestant/Expectorant (By mouth), Doxycycline (By mouth), Levofloxacin (By mouth), How to Prevent Pressure Injuries (GEN), Influenza (GEN), Pneumonia (GEN), Opioid Safety Activity Restrictions/Additional Instructions: Resume usual care, turn frequently to avoid pressure ulcers. Resume usual tube feeds. Complete antibiotic course due to concern for possible superimposed bacterial pneumonia on top of influenza pneumonia and rhinovirus infection. Continue oxygen 2 L nasal cannula, oxygenation has been improving, wean down gradually as tolerated maintaining saturation 92%. Cough syrup as needed. Double hydrocortisone dose to 10 mg for the next 3 days, subsequently resume usual dose. Monitor blood pressures. Discharge Attestations Time Spent in Discharge Care*: greater than 30 min Status at Discharge: Cognitive status at discharge: severely impaired cognition (At baseline however. ), Quality Metrics Clinical Quality Measures [ No reported AMI, CVA or VTE this stay] Coding Level of Care Code Acute g FW CT note Diagnoses Influenza A J10.1 Pneumonia J18.9 Rhinovirus infection B34.8
== END 2022-04-28 14:21 | disposition skilled nursing facility (03) | DRG 194 ==
LOC: ER 04-26 01:20 → MEDSURG 04-26 01:58
PROVIDERS: Admitting Provider Student in an Organized Health Care Education/Training Program; Emergency Provider Emergency Medicine; PCP Family Medicine; Visit Provider Internal Medicine
DX: J10.08 Influenza due to other identified influenza virus with other specified pneumonia (principal); E23.0 Hypopituitarism; E87.1 Hypo-osmolality and hyponatremia; Z93.1 Gastrostomy status; E03.9 Hypothyroidism, unspecified; D70.9 Neutropenia, unspecified; I95.9 Hypotension, unspecified; B95.62 Methicillin resistant Staphylococcus aureus infection as the cause of diseases classified elsewhere; J15.9 Unspecified bacterial pneumonia; G80.8 Other cerebral palsy; G40.909 Epilepsy, unspecified, not intractable, without status epilepticus
CPT/HCPCS: 36415; 36600; 51702; 71045; 80053; 80202; 81003; 82803; 83605; 84145; 85007; 85025; 86140; 87040; 87486; 87581; 87633; 87641; 93005; 96365; 96367; 96372; 99285; 99291; 99292; J1650; J1956; J2543; J3370; J7030; J7040; J7050; J8499

== ENCOUNTER 2022-05-06 11:33 | Inpatient (IN) | payer MEDICARE, MEDICAID, SELFPAY ==
[2022-05-06] VITALS (11 sets, daily range): BP systolic 84–107; BP diastolic 53–74; PULSE 76–88; RESP 14–18; TEMP 35.4–36.7; O2SAT 94–100; BMI 27.4
--- NOTE | 2022-05-06 11:50 | XRR_ITS ---
PROCEDURE INFORMATION: Exam: XR Chest Exam date and time: 05/06/2022 12:19 PM Age: 27 years old Clinical indication: Cough and dyspnea; Additional info: Dyspnea/cough TECHNIQUE: Imaging protocol: Radiologic exam of the chest. Views: 1 view. COMPARISON: CR XR chest 1V portable [id number] 04/25/2022 10:33 PM FINDINGS: Tubes, catheters and devices: An electronic device is noted overlying the left chest with leads extending into the neck. Lungs: Low lung volumes. There is mild peribronchial wall thickening. No pulmonary consolidation. Pleural spaces: No pleural effusion. No pneumothorax. Heart/Mediastinum: Cardiac silhouette is approximately unchanged. No gross evidence of pneumomediastinum. Bones/joints: Bilateral Reardon rods are seen. No gross fracture. XR/XR chest 1V portable [id number] IMPRESSION: There is mild peribronchial wall thickening; query viral infection/bronchitis and/or asthma asthma.
--- NOTE | 2022-05-06 12:13 | ECG_ITS ---
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 Measurements Intervals [place] Rate: 79 P: 46 FL: 171 QRS: 61 QRSD: 91 T: -34 QT: 418 QTc: 480 Interpretive Statements SINUS RHYTHM MODERATE T-WAVE ABNORMALITY, CONSIDER ANTERIOR AND INFERIOR ISCHEMIA [-0.1+ mV T-WAVE IN V3/V4] Compared to ECG 04/25/2022 20:44:05 Sinus tachycardia no longer present T-wave abnormality still present Possible ischemia still present Electronically Signed On 05-06-2022 18:58:35 HAND PRESSER by Mariella Sun M.D. [id number]
[2022-05-06 12:25] LABS: Basophils # 0.1 10^3/uL (0.0-0.1); Eosinophils # 0.2 10^3/uL (0.0-0.8); Eosinophils % 3.6 %; Lymphocytes # 2.5 10^3/uL (0.8-4.8); Lymphocytes % 49.4 %; Mean Corpuscular HGB Conc 34.4 g/dL (30.0-36.0); Mean Corpuscular Hemoglobin 31.7 pg (28.0-34.0); Mean Corpuscular Volume 92.2 fl (81-99); Mean Platelet Volume 9.8 fL (7.4-10.4); Monocytes # 1.2 10^3/uL (0.2-0.9); Monocytes % 23.3 %; Neutrophils # 1.11 10^3/uL (1.8-7.7); Neutrophils % 21.9 %; Nucleated Red Blood Cells % 0 %; Platelet Count 437 10^3/cmm (130-400); Red Blood Count 3.47 10^6/uL (4.1-5.3); Red Cell Distribution Width 12.7 % (12.1-15.1); White Blood Count 5.1 10^3/uL (4.0-10.0)
[2022-05-06 12:32] LABS: ABG PCO2 38.3 mmHg (35-45); ABG PH Result 7.47 (7.35-7.45); Alveolar-Arterial Oxygen Gradi 1.7 mmHg (5-10); Base Excess ABG 3.7 mmol/L (-2.0-2.0); Blood Gas Allen Test Pos; Blood Gas Operator Identificat CAK; Blood Gas Sample Site Radial, left; Blood Gas Sample Type Arterial; Carboxyhemoglobin 0.5 %THgb (0.4-20.1); HCO3 ABG 27.6 mmol/L (22-26); HGB O2 Sat 99.7 % (95-100); Ionized Calcium Level - ABG 1.1 mmol/L (1.1-1.4); Methemoglobin < 0.0 % (0.4-1.5); Oxygen Device NC; Oxygen Saturation ABG 99.9; Potassium Level - ABG 3.1 mmol/L (3.5-5.0); Total Hemoglobin 10.8 g/dL (12-16)
--- NOTE | 2022-05-06 12:36 | W.ED.WEAKNES ---
HPI - Weakness General: Chief complaint: Weakness Stated complaint: PNEUMONIA Time Seen by Provider: 05/06/22 11:48 Source: EMS Mode of arrival: EMS History of Present Illness: 27-year-old female detention reports difficulty breathing recently hospitalized for pneumonia patient is severely incapacitated secondary to cerebral palsy. She has significant contractures and is nonverbal not able to contribute any history at all. correction staff reports onset of symptoms last 24 to 36 hours. Review of Systems General: Reports: ROS unobtainable due to mental status PFSH ED PFSH: Medical History Acute hyponatremia Cerebral palsy Hyponatremia Hypothyroidism Panhypopituitarism Perforated tympanic membrane Seizure disorder Surgical History S/P percutaneous endoscopic gastrostomy (PEG) tube placement Status post VNS (vagus nerve stimulator) placement ? Family History Other Diabetes Hyperlipidemia Social History Smoking and tobacco status: never smoked Alcohol intake: never Substance/Drug Use: never Caregiver/support person: Yes Lives independently: No Household members: other Housing: [facility] History of recent travel: No Physical Exam HENMT: COMMON NORMALS: normocephalic, atraumatic, hearing grossly normal bilaterally, external ears normal, EAC's normal, TM's normal bilaterally, Normal nasal mucous membranes and turbinates present, moist oral mucous membranes and oropharynx normal HEAD & SCALP: normocephalic and atraumatic NOSE: Normal nasal mucous membranes and turbinates present EXTERNAL EAR: Yes external ears normal EXTERNAL AUDITORY CANAL: EAC's normal TYMPANIC MEMBRANE: TM's normal bilaterally Neck/C-Spine: COMMON NORMALS: full ROM, no lymphadenopathy and supple Lymph: LYMPHATIC: no lymphadenopathy noted and no lymphedema noted Resp: AUSCULTATION: rhonchi and wheezes Cardio: COMMON NORMALS: regular rate, regular rhythm and No murmurs present (Cardio) RATE: regular rate RHYTHM: regular rhythm GI: COMMON NORMALS: Soft to palpation and No hepatosplenomegaly present AUSCULTATION: Yes normoactive bowel sounds PALPATION: Yes Soft to palpation, No Tenderness to palpation present (GI), No Guarding due to palpation present (GI) and Yes No hepatosplenomegaly present Skin: COMMON NORMALS: no rashes or lesions noted GENERAL SKIN EXAM: no rashes or lesions noted Course Vital Signs: Vital signs: Vital Signs Temperature 97.7 F 05/09/22 11:35 Pulse Rate 73 05/09/22 11:35 Respiratory Rate 15 05/09/22 11:35 Blood Pressure 88/59 05/09/22 11:35 Pulse Oximetry 92 05/09/22 09:04 Oxygen Delivery Me thod 05/09/22 09:04 Oxygen Flow Rate 2 05/06/22 12:30 MDM - Weakness Medical Decision Making Increased hypoxia. Last month patient was admitted from April 25 to the for similar presentation with influenza A and enterovirus according to discharge summary she went home on 2 L by nasal cannula she is now requiring 3 edition she is hyponatremic at 121 discussed with hospitalist will admit. Medical Records I reviewed the patient's medical records. Lab Data 05/06/22 11:50 Radiology Impressions Chest X-Ray 05/06/22 11:50 IMPRESSION: There is mild peribronchial wall thickening; query viral infection/bronchitis and/or asthma asthma. Laboratory Results WBC 5.1 10^3/uL (4.0-10.0) 05/06/22 11:50 RBC 3.47 10^6/uL (4.1-5.3) L 05/06/22 11:50 Hgb 11.0 g/dL (11.5-15.3) L 05/06/22 11:50 Hct 32.0 % (37.0-47.0) L 05/06/22 11:50 MCV 92.2 fl (81-99) 05/06/22 11:50 MCH 31.7 pg (28.0-34.0) 05/06/22 11:50 MCHC 34.4 g/dL (30.0-36.0) 05/06/22 11:50 RDW 12.7 % (12.1-15.1) 05/06/22 11:50 Plt Count 437 10^3/cmm (130-400) H 05/06/22 11:50 MPV 9.8 fL (7.4-10.4) 05/06/22 11:50 Neut % (Auto) 21.9 % 05/06/22 11:50 Lymph % (Auto) 49.4 % 05/06/22 11:50 [place] % (Auto) 23.3 % 05/06/22 11:50 Eos % (Auto) 3.6 % 05/06/22 11:50 Baso % (Auto) 1.0 % 05/06/22 11:50 Neut # (Auto) 1.11 10^3/uL (1.8-7.7) L 05/06/22 11:50 Lymph # (Auto) 2.5 10^3/uL (0.8-4.8) 05/06/22 11:50 [place] # (Auto) 1.2 10^3/uL (0.2-0.9) H 05/06/22 11:50 Eos # (Auto) 0.2 10^3/uL (0.0-0.8) 05/06/22 11:50 Baso # (Auto) 0.1 10^3/uL (0.0-0.1) 05/06/22 11:50 Nucleated RBC % (auto) 0 % 05/06/22 11:50 Nucleated RBCs # 0.0 /100WBC 05/06/22 11:50 Specimen Type Arterial 05/06/22 12:21 Sample Site Radial, left 05/06/22 12:21 ABG pH 7.47 (7.35-7.45) H 05/06/22 12:21 ABG pCO2 38.3 mmHg (35-45) 05/06/22 12:21 ABG pO2 140.0 mmHg (80.0-100.0) H 05/06/22 12:21 ABG HCO3 27.6 mmol/L (22-26) H 05/06/22 12:21 ABG O2 Saturation 99.9 05/06/22 12:21 ABG Base Excess 3.7 mmol/L (-2.0-2.0) H 05/06/22 12:21 Suresh Test Pos 05/06/22 12:21 A-a O2 Gradient 1.7 mmHg (5-10) L 05/06/22 12:21 Hematocrit 33.0 % (37-47) L 05/06/22 12:21 Hgb O2 Saturation 99.7 % (95-100) 05/06/22 12:21 Carboxyhemoglobin 0.5 %THgb (0.4-20.1) 05/06/22 12:21 Methemoglobin < 0.0 % (0.4-1.5) L 05/06/22 12:21 Total Hemoglobin 10.8 g/dL (12-16) L 05/06/22 12:21 Sodium 121.0 mmol/L (131-143) L 05/06/22 12:21 Potassium 3.1 mmol/L (3.5-5.0) L 05/06/22 12:21 Glucose 103.0 mg/dL (70-115) 05/06/22 12:21 Ionized Calcium 1.1 mmol/L (1.1-1.4) 05/06/22 12:21 O2 Delivery Device Nc 05/06/22 12:21 O2 Liters/Min 2.0 % 05/06/22 12:21 FiO2 28.0 % 05/06/22 12:21 Forklift Wheel Loader ID Cak 05/06/22 12:21 Sodium 121 mmol/L (136-145) L 05/06/22 12:10 Potassium 3.2 mmol/L (3.5-5.1) L 05/06/22 12:10 Chloride 86 mmol/L (98-107) L 05/06/22 12:10 Carbon Dioxide 24 mmol/L (22-29) 05/06/22 12:10 Anion Gap 14.2 (5-19) 05/06/22 12:10 BUN 5 mg/dL (6-20) L 05/06/22 12:10 Creatinine 0.3 mg/dL (0.5-0.9) L 05/06/22 12:10 GFR Calculation 266.9 mL/min (90-130) H 05/06/22 12:10 Glucose 99 mg/dL (65-115) 05/06/22 12:10 Calculated Osmolality 249 mOsm/kg (285-295) L 05/06/22 12:10 Lactic Acid 1.0 mmol/L (0.5-2.2) 05/06/22 12:10 Calcium 8.6 mg/dL (8.5-10.5) 05/06/22 12:10 Iron 31 ug/dL (37-145) L 05/06/22 12:10 TIBC 193 mcg/dl 05/06/22 12:10 % Saturation 16.0 % (20-50) L 05/06/22 12:10 Unsat Iron Binding 162 ug/dL (112-347) 05/06/22 12:10 Total Bilirubin 0.2 mg/dL (0.15-1.2) 05/06/22 12:10 AST 62 U/L (0-32) H 05/06/22 12:10 ALT 43 U/L (0-33) H 05/06/22 12:10 Alkaline Phosphatase 128 U/L (35-105) H 05/06/22 12:10 NT-Pro-B Natriuret Pep 328 pg/mL (0-125) H 05/06/22 12:10 Total Protein 6.6 g/dL (6.6-8.7) 05/06/22 12:10 Albumin 3.6 g/dL (3.5-5.2) 05/06/22 12:10 Globulin 3.0 g/dL (1.3-4.6) 05/06/22 12:10 Vitamin B12 > 2000 pg/mL (232-1245) H 05/06/22 12:10 Procalcitonin 0.08 ng/mL (0-0.5) 05/06/22 12:10 TSH 0.14 uIU/mL (0.27-4.20) L 05/06/22 12:10 Nasal Influ A H1 2008 PCR Not detected (NOT DETECT) 05/06/22 12:38 Coronavirus 229E (PCR) Not detected (NOT DETECT) 05/06/22 12:38 Influenza A (H1) PCR Not detected (NOT DETECT) 05/06/22 12:38 Influenza A (H3) PCR Not detected (NOT DETECT) 05/06/22 12:38 Influenza Type A (PCR) Not detected (NOT DETECT) 05/06/22 12:38 Influenza Type B (PCR) Not detected (NOT DETECT) 05/06/22 12:38 SARS-CoV-2 (PCR) Not detected (NOT DETECT) 05/06/22 12:38 Discharge Plan Discharge Patient Disposition: Admitted As Inpatient Admit Provider: Yolanda Yanez Clinical Impression: Pneumonia, Acute hyponatremia Condition: Stable Discharge Diet: Resume prior tube feeds Coding Level of Care Code ED Dental Receptionist for Chg Fwd
[2022-05-06 12:50] LABS: Alanine Aminotransferase 43 U/L (0-33); Albumin Level 3.6 g/dL (3.5-5.2); Alkaline Phosphatase 128 U/L (35-105); Anion Gap 14.2 (5-19); Aspartate Amino Transferase 62 U/L (0-32); Blood Urea Nitrogen 5 mg/dL (6-20); Calcium 8.6 mg/dL (8.5-10.5); Carbon Dioxide 24 mmol/L (22-29); Chloride 86 mmol/L (98-107); Glomerular Filtration Rate 266.9 mL/min (90-130); Glucose 99 mg/dL (65-115); Osmolality Calculated 249 mOsm/kg (285-295); Potassium 3.2 mmol/L (3.5-5.1); Sodium 121 mmol/L (136-145); Total Bilirubin 0.2 mg/dL (0.15-1.2); Total Protein 6.6 g/dL (6.6-8.7)
--- NOTE | 2022-05-06 12:57 | PC.PHAR ---
PT IS FROM [facility], [place]-PER KATELYNN FROM [facility] THE PTS HYDROCORTISONE 10MG BID FOR 3 DAYS THEN RESUME USUAL DOSE WAS DCED AND NOT ON MAR-STATES THE BISACODYL 10MG [place] DAILY PRN,ENEMA 118ML [place] DAILY PRN AND REFRESH PM AT HS WAS ALSO DCED
[2022-05-06 15:28] LABS: Adenovirus Not Detected (NOT DETECT); Chlamydia Pneumoniae Not Detected (NOT DETECT); Coronavirus 229E,HKU1,NL63,OC4 Not Detected (NOT DETECT); Human Metapneumovirus Not Detected (NOT DETECT); Human Rhinovirus/Enterovirus Not Detected (NOT DETECT); Influenza A Not Detected (NOT DETECT); Influenza A H1 Not Detected (NOT DETECT); Influenza A H1-2009 Not Detected (NOT DETECT); Influenza A H3 Not Detected (NOT DETECT); Influenza B Not Detected (NOT DETECT); Mycoplasma Pneumoniae Not Detected (NOT DETECT); Parainfluenza Virus Type 1 Not Detected (NOT DETECT); Parainfluenza Virus Type 2 Not Detected (NOT DETECT); Parainfluenza Virus Type 3 Not Detected (NOT DETECT); Parainfluenza Virus Type 4 Not Detected (NOT DETECT); Respiratory Syncytial Virus A Not Detected (NOT DETECT); Respiratory Syncytial Virus B Not Detected (NOT DETECT); SARS-COV-2 Not Detected (NOT DETECT)
[2022-05-06 15:36] LABS: Influenza A Not Detected (NOT DETECT); Influenza A H1 Not Detected (NOT DETECT); Influenza A H1-2009 Not Detected (NOT DETECT); Influenza A H3 Not Detected (NOT DETECT); Influenza B Not Detected (NOT DETECT); Results from GEN
--- NOTE | 2022-05-06 16:08 | PM.HP ---
Providers/Chief Complaint Primary Care Provider: Kelvin Naqvi Jr, MD Chief Complaint: PNEUMONIA History of Present Illness Jennyfer Bliss is a 27 year old female with past medical history of cerebral palsy, spastic quadriplegia, requiring total assistance, with PEG tube feedings, with chronic hyponatremia, panhypopituitarism, following with endocrinology, seizure disorder, following with neurology return to the hospital after recent discharge with again decreased responsiveness, with noted again acute on chronic hyponatremia. Patient was recently in the hospital and was discharged on 04/28 when she got treated for rhinovirus infection. She was sent in back to the ER today because of possible decreased responsiveness and her oxygen supplementation going up to 3 L from 2 L on which she was discharged on a week ago. In the ER, blood work showed a white count 5.1, hemoglobin of 11, platelet of 437, ABG showing a pH of 747, PO2 of 140 on 2 L, chemistry showing a sodium of 121, potassium of 3.2, chloride of 86, creatinine of 0.3, AST/ALT of 62/43, alkaline phosphatase of 128, respiratory viral panel negative for any flu or COVID. Patient received 1 L of D5 half NS. Review of Systems General: Reports: ROS unobtainable due to mental status Medications/Allergies Home Medications Medication Instructions Recorded Confirmed Last Taken Type lamotrigine 200 mg tablet 400 mg feeding tube BID@04/01/20 05/06/22 05/06/22 History rufinamide 400 mg tablet (Banzel) 1,400 mg feeding tube BID@04/01/20 05/06/22 05/06/22 History Enteral Feed Order See Rx Instructions .Route .COMPLEX 04/26/22 05/06/22 05/06/22 History acetaminophen 325 mg tablet 650 mg feeding tube Q4H PRN Pain 04/26/22 05/06/22 Unknown History (Tylenol) baclofen 10 mg tablet 10 mg feeding tube TID@,,04/26/22 05/06/22 05/06/22 History clonazepam 1 mg tablet 1 mg feeding tube TID@,,04/26/22 05/06/22 05/06/22 History famotidine 20 mg tablet 20 mg feeding tube BID@,04/26/22 05/06/22 05/06/22 History lactulose 10 gram/15 mL oral 10 g feeding tube DAILY@08 04/26/22 05/06/22 05/06/22 History solution levetiracetam 750 mg tablet 1,500 mg PO BID@,04/26/22 05/06/22 05/06/22 History levothyroxine 112 mcg tablet 112 mcg feeding tube DAILY@08 04/26/22 05/06/22 05/06/22 History menthol 4 % topical gel (Biofreeze See Rx Instructions .Route .COMPLEX 04/26/22 05/06/22 05/06/22 History (menthol)) phenobarbital 30 mg tablet 60 mg feeding tube BID@04/26/22 05/06/22 05/06/22 History sennosides 8.6 mg-docusate sodium 1 tab PO BID@,04/26/22 05/06/22 05/06/22 History 50 mg tablet (Senna-S) zinc oxide See Rx Instructions .Route .COMPLEX 04/26/22 05/06/22 Unknown History dextromethorphan HBr 10 mg/5 mL 10 mg PO Q4H PRN Cough 05/06/22 05/06/22 Unknown History oral liquid magnesium hydroxide 400 mg/5 mL 30 ml peg-tube DAILY PRN 05/06/22 05/06/22 Unknown History oral suspension (Milk of Magnesia) constipation Allergies Allergy/AdvReac Type Severity Reaction Status Date / Time diphenhydramine Allergy ADR-Seizure Verified 05/06/22 12:57 [From Benadryl] PFSH Acute PFSH: Medical History (Updated 05/06/22 @ 16:45 by Pierre Madera MD) Acute hyponatremia Cerebral palsy Hyponatremia Hypothyroidism Panhypopituitarism Perforated tympanic membrane Seizure disorder Surgical History S/P percutaneous endoscopic gastrostomy (PEG) tube placement Status post VNS (vagus nerve stimulator) placement ? Family History Other Diabetes Hyperlipidemia Social History (Updated 05/06/22 @ 16:12 by Pierre Madera MD) Smoking and tobacco status: never smoked Alcohol intake: never Substance/Drug Use: never Caregiver/support person: Yes Lives independently: No Household members: other Housing: Residential History of recent travel: No Vitals/I&O/Wt Last Vital Signs Temp 95.8 F L 05/06/22 11:46 Pulse 77 05/06/22 16:00 Resp 16 05/06/22 15:00 BP 98/70 05/06/22 16:00 Pulse Ox 100 05/06/22 16:00 O2 Del Method 05/06/22 14:00 O2 Flow Rate 2 05/06/22 12:30 Weight last 48 hrs Weight 74.843 kg Physical Exam Narrative: EXAM NARRATIVE: Young female who is moving her head, spontaneously moving all limbs, not following simple commands which is her baseline No skin rash, diaper rash, pressure injury ulcers Pale complexion and dehydrated Abdomen soft with active bowel sounds, no guarding but unable to assess for any tenderness Spastic quadriplegia Bilateral breath sounds diminished, her breathing is not labored Mild conjunctival hyperemia of the left eye Sequeira catheter draining clear yellow urine No joint swelling Data 05/06/22 11:50 05/06/22 12:10 Micro: Microbiology 05/06/22 12:10 Blood Culture - Preliminary Blood SPECIMEN COLLECTED 05/06/22 12:10 Blood Culture - Preliminary Blood SPECIMEN COLLECTED A&P Assessment and plan (1) Metabolic encephalopathy: Worsening her baseline most likely secondary to acute on chronic hyponatremia. Patient does not have any white count, ABG is at baseline, no current signs of infection. Patient is on 2 L saturating 98%. Less likely infectious process. Check TSH, cortisol level, vitamin B12, folate, iron panel, urinalysis. It seems patient was previously on prednisone for panhypopituitarism but somehow cannot see that medication on her current medication list. For now we will hold off on IV antibiotics. (2) Acute hyponatremia: Baseline sodium seems to be running at 1 26-1 27. Today 121. 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 Willing to continue all the antiseizure medications. Stop IV fluids. Check urine lites, urine creatinine, urine osmolality. Serum osmolality low at 249. Fluid restriction up to 1 L. IV Lasix 40 mg one-time. Repeat BMP every 12 hourly. (3) Cerebral palsy: (4) Seizure disorder: Plan Continue home tube feeds Famotidine for PUD prophylaxis Heparin 5000 every 12 hourly for DVT prophylaxis Sequeira catheterization Full code. Discharge planning: Plan to discharge back [facility] once medically stable. Attestations Medical Necessity Statement*: Admission for more than 2 midnights for management of acute encephalopathy secondary to acute on chronic hyponatremia Time Spent in Patient Care: Greater than 35 minutes Coding Level of Care Code Acute Plugger Man for [facility] Fwd Diagnoses Metabolic encephalopathy G93.41 Acute hyponatremia E87.1 Cerebral palsy G80.9 Seizure disorder G40.909
[2022-05-06] MEDS: potassium chloride oral liq 20 mEq/15 mL UDC 80 MEQ PO (16:53)
[2022-05-06] MEDS: FUROsemide 10 mg/mL SDV 4mL 40 MG IVP (16:53)
[2022-05-06 16:59] LABS: NT Pro B Type Natriuretic Pept 328 pg/mL (0-125); Procalcitonin 0.08 ng/mL (0-0.5)
--- NOTE | 2022-05-06 17:03 | PC.NURSE ---
PT POTASSIUM SUPPLEMENT ADMINISTERED THROUGH PEG TUBE. DR SIMPSON AWARE
[2022-05-06 17:08] LABS: Thyroid Stimulating Hormone 0.14 uIU/mL (0.27-4.20)
[2022-05-06 17:56] LABS: Vitamin B12 > 2000 pg/mL (232-1245)
[2022-05-06] MEDS: heparin 5,000 unit/mL INJ 1 mL 5000 UNIT SUBCUT (18:30)
[2022-05-06] MEDS: hydrocortisone 10 mg Tablet 5 MG PO (18:30)
[2022-05-06 18:35] LABS: Iron 31 ug/dL (37-145); Total Iron Binding Capacity 193 mcg/dl; Unsaturated Iron Binding 162 ug/dL (112-347)
[2022-05-06] MEDS: famotidine 20 mg Tablet J-TUBE (22:00)
[2022-05-06] MEDS: levETIRAcetam 500 mg Tablet 1500 MG PO (22:00)
[2022-05-06] MEDS: CLONazepam 1 mg Tablet J-TUBE (22:00)
[2022-05-06] MEDS: baclofen 10 mg Tablet J-TUBE (22:01)
[2022-05-06] MEDS: lamoTRIgine 100 mg Tablet 400 MG PEG-TUBE (22:01)
[2022-05-06 22:27] LABS: Anion Gap 14.5 (5-19); Blood Urea Nitrogen 3 mg/dL (6-20); Calcium 8.6 mg/dL (8.5-10.5); Carbon Dioxide 24 mmol/L (22-29); Chloride 90 mmol/L (98-107); Glomerular Filtration Rate 191.5 mL/min (90-130); Glucose 94 mg/dL (65-115); Osmolality Calculated 254 mOsm/kg (285-295); Potassium 4.5 mmol/L (3.5-5.1); Sodium 124 mmol/L (136-145)
[2022-05-06] MEDS: lactated ringers 500 ML 999 ML IV (23:46)
[2022-05-06] MEDS: hydrocortisone 100 mg/2 mL SDV IVP (23:48)
[2022-05-07] VITALS (8 sets, daily range): BP systolic 83–128; BP diastolic 50–87; PULSE 79–107; RESP 15–18; TEMP 36.4–36.8; O2SAT 94–98
[2022-05-07 01:03] LABS: Folate Level 9.9 ng/mL (4.8-37.3)
[2022-05-07 03:40] LABS: Add Urine Microscopic? YES; Bilirubin Urine Neg (Negative); Blood Urine Neg (Negative); Glucose Urine UA Norm (Normal); Ketones Urine Negative (Negative); Leukocyte Esterase Urine Negative (Negative); Nitrate Urine Negative (Negative); Protein Urine Trace (Negative); Urine Appearance Clear (CLEAR); Urine Color Yellow (Yellow); Urobilinogen Urine Norm (Negative); pH Urine 5 (5-7)
[2022-05-07 03:41] LABS: Add Urine Culture? No; Hyaline Casts Urine 0-4 /lpf; RBC Urine RARE /hpf (0-2); Squamous Epithelial Cell Urine 0-4 /hpf (0-5)
[2022-05-07 03:42] LABS: Potassium, Radom Urine 45 mmol/L
[2022-05-07 03:44] LABS: Urine Random Chloride 15 mmol/L; Urine Random Sodium 11 mmol/L
[2022-05-07 05:35] LABS: Basophils % 0.7 %; Eosinophils % 0.4 %; Hematocrit 32.8 % (37.0-47.0); Hemoglobin 11.1 g/dL (11.5-15.3); Lymphocytes # 0.9 10^3/uL (0.8-4.8); Lymphocytes % 30.9 %; Mean Corpuscular HGB Conc 33.8 g/dL (30.0-36.0); Mean Corpuscular Hemoglobin 31.6 pg (28.0-34.0); Mean Corpuscular Volume 93.4 fl (81-99); Mean Platelet Volume 9.5 fL (7.4-10.4); Monocytes # 0.3 10^3/uL (0.2-0.9); Monocytes % 10.4 %; Neutrophils # 1.57 10^3/uL (1.8-7.7); Neutrophils % 56.5 %; Nucleated Red Blood Cells % 0 %; Platelet Count 458 10^3/cmm (130-400); Red Blood Count 3.51 10^6/uL (4.1-5.3); Red Cell Distribution Width 13.1 % (12.1-15.1); White Blood Count 2.8 10^3/uL (4.0-10.0)
[2022-05-07] MEDS: heparin 5,000 unit/mL INJ 1 mL 5000 UNIT SUBCUT ×2 (05:46→17:45)
[2022-05-07 05:52] LABS: Estmated Average Glucose 91; Hemoglobin A1C 4.8 % (4.0-6.0)
[2022-05-07 05:55] LABS: Alanine Aminotransferase 61 U/L (0-33); Albumin Level 3.8 g/dL (3.5-5.2); Alkaline Phosphatase 131 U/L (35-105); Anion Gap 13.3 (5-19); Aspartate Amino Transferase 79 U/L (0-32); Blood Urea Nitrogen 4 mg/dL (6-20); Calcium 9.2 mg/dL (8.5-10.5); Carbon Dioxide 25 mmol/L (22-29); Chloride 97 mmol/L (98-107); Globulin 3.2 g/dL (1.3-4.6); Glomerular Filtration Rate 266.9 mL/min (90-130); Glucose 112 mg/dL (65-115); Magnesium 2.3 mg/dL (1.7-2.3); Osmolality Calculated 270 mOsm/kg (285-295); Phosphorus 2.5 mg/dL (2.5-4.5); Potassium 4.3 mmol/L (3.5-5.1); Sodium 131 mmol/L (136-145); Total Bilirubin 0.2 mg/dL (0.15-1.2)
[2022-05-07 05:58] LABS: Chol HDL Ratio 2.28 mg/dL (0.0-4.40); Cholesterol 194 mg/dL (0-200); HDL Cholesterol 85 mg/dL (60-100); LDL Cholesterol Calculated 102 mg/dL (50-129); Triglycerides 35 mg/dL (0-150); VLDL Cholestrol Calculation 7 mg/dL (0-30)
[2022-05-07] MEDS: CLONazepam 1 mg Tablet J-TUBE ×3 (09:14→22:18)
[2022-05-07] MEDS: lamoTRIgine 100 mg Tablet 400 MG PEG-TUBE ×3 (09:15→22:17)
[2022-05-07] MEDS: levothyroxine 112 mcg Tablet J-TUBE (09:16)
[2022-05-07] MEDS: levETIRAcetam 500 mg Tablet 1500 MG PO ×2 (09:16→22:16)
[2022-05-07] MEDS: hydrocortisone 10 mg Tablet 5 MG PO ×2 (09:17→18:22)
[2022-05-07] MEDS: baclofen 10 mg Tablet J-TUBE ×3 (09:18→22:17)
[2022-05-07] MEDS: famotidine 20 mg Tablet J-TUBE ×2 (09:18→22:18)
--- NOTE | 2022-05-07 09:50 | PC.NUTR ---
Consult for Peg TF recommendations received. At [facility], Pt was on Jevity 1.2, 240 cc at 9am/noon/5pm/9pm. Recommend consideration of Jevity 1.2, 60 mls flush before/after feed, with slighty more formula in the schedule: 8am-240 cc noon-300 cc 4pm-240 cc 8pm-[address] assessment.
--- NOTE | 2022-05-07 10:36 | PC.CHAP ---
Pastoral Care Encounter/Spiritual Assessment Type of Contact [] Declined varsity baseball coach visit [] Patient/Family/Request visit [] Outpatient visit [] Follow-up visit [] Physician referral [] Code/Alert [x] Routine visit [] Staff referral [] Actively dying [x] Patient sleeping [] Family support [] [] Out of room [] Palliative care [] [] Receiving care in room [] Pre-surgical visit [] Trauma [] Long length of stay [] ICU visit [] Other: Relational/Emotional Strength [] Patient feels connected with others/family/visitors/staff [] Distress [] Loneliness/isolation [] Abandonment Spirituality of Patient [] Person of Opal [] Attends Protestant of their Opal [] Believes in Prayer [] Reads Bible or Caodaism materials [] There are Spiritual issues to be addressed Coal Sampler Interventions [x] Prayer [] Active listening [] Non-anxious presence [] Spiritual/emotional support [] Crisis/trauma care [] Spiritual counseling [] Bereavement support [] Provided bereavement packet [] Provided Bible/devotional materials [] Provided toy/stuffed animal, coloring book to patient or family member [] Provided Communion [] Anointing/Elbert [] Salvation [] Completed spiritual assessment [] Other: Impact on Illness or Injury [] Angry [] Fearful [] Anxious [] Often cries [] Exhaustion [] Unable to work [] Unable to attend cheondoism [] Unable to walk/stand [] Unable to read [] Unable to drive [] Unable to eat/drink [] Unable to sleep [] Unable to be with family [] Patient intubated [] Other: Summary Time spent with patient
--- NOTE | 2022-05-07 14:15 | PM.PN ---
Subjective Subjective: No acute events overnight. Patient's blood pressures are a lot better today. Patient at baseline mentation. Remains on room air and hemodynamically stable. Sodium up to 131 today. Vitals/I&O/Wt Last Vital Signs Temp 97.9 F 05/07/22 11:03 Pulse 85 05/07/22 11:03 Resp 17 05/07/22 11:03 BP 111/78 05/07/22 11:03 Pulse Ox 94 05/07/22 11:03 O2 Del Method 05/07/22 11:03 O2 Flow Rate 2 05/06/22 12:30 05/06/22 05/07/22 05/07/22 22:59 06:59 14:59 Intake Total 440 / 440 500 / 940 1180 / 1180 Output Total 1400 / 1400 2300 / 3700 Balance -960 / -960 -1800 / -2760 1180 / 1180 Weight last 48 hrs Weight 76.612 kg Weight 74.843 kg Weight 74.843 kg Physical Exam Narrative: EXAM NARRATIVE: Young female who is moving her head, spontaneously moving all limbs, not following simple commands which is her baseline No skin rash, diaper rash, pressure injury ulcers Pale complexion and dehydrated Abdomen soft with active bowel sounds, no guarding but unable to assess for any tenderness Spastic quadriplegia Bilateral breath sounds diminished, her breathing is not labored Mild conjunctival hyperemia of the left eye Sequeira catheter draining clear yellow urine No joint swelling Urinary Catheter Management: Sequeira: Cath Placed During This Visit: yes Reason for Continuing Indwelling Catheter: Acute Urinary Retention or Obstruction Urinary Catheter Date of Insertion: 05/06/22 Urinary Catheter Time of Insertion: 17:02 Data 05/07/22 05:00 05/07/22 05:00 Micro: Microbiology 05/06/22 12:10 Blood Culture - Preliminary Blood NEGATIVE TO DATE 05/06/22 12:10 Blood Culture - Preliminary Blood NEGATIVE TO DATE 05/06/22 16:40 Legionella Urinary Antigen - Final Urine Catheterized 05/06/22 16:40 Bacterial Antigens - Final Urine Kidney A&P Assessment and plan (1) Metabolic encephalopathy: Worsening her baseline most likely secondary to acute on chronic hyponatremia. Patient does not have any white count, ABG is at baseline, no current signs of infection. Patient is on 2 L saturating 98%. Less likely infectious process. TSH slightly low, appreciate vitamin B12, folate, Pro-Corwin results. Restarted home dose of prednisone at 5 mg twice daily. For now we will hold off on IV antibiotics. (2) Acute hyponatremia: Baseline sodium seems to be running at 1 26-1 27. Improved to 131. Light overcorrection. Will recheck BMP at around 2. 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 Will need to continue all the antiseizure medications. Hold off on any further fluids or diuretics. Appreciate urine lites. Fluid restriction up to 2 L today. Repeat BMP every 12 hourly. (3) Cerebral palsy: (4) Seizure disorder: (5) Intertrigo: Plan Famotidine for PUD prophylaxis Heparin 5000 every 12 hourly for DVT prophylaxis Sequeira catheterization Full code. Continue tube feeds. Dietitian consult. Discharge planning: [facility] once medically stable. Attestations Medical Necessity Statement*: Requires further hospitalization for management of altered mental status secondary to acute on chronic hyponatremia Time Spent in Patient Care: Greater than 35 minutes Coding Level of Care Code Acute Clinical Assistant for [facility] Fwd Diagnoses Metabolic encephalopathy G93.41 Acute hyponatremia E87.1 Cerebral palsy G80.9 Seizure disorder G40.909 Intertrigo L30.4
[2022-05-07 15:51] LABS: Blood Urea Nitrogen 5 mg/dL (6-20); Carbon Dioxide 25 mmol/L (22-29); Chloride 97 mmol/L (98-107); Glomerular Filtration Rate 266.9 mL/min (90-130); Glucose 103 mg/dL (65-115); Osmolality Calculated 272 mOsm/kg (285-295); Sodium 132 mmol/L (136-145)
[2022-05-07 16:18] LABS: Free T4 Free Thyroxine 0.96 ng/dL (0.82-1.77); T3 Free 2.1 PG/ML (2.0-4.4)
--- NOTE | 2022-05-07 22:12 | PC.NURSE ---
CARE TRANSFER Care of pt assumed by this nurse at this time. Report from previous nurse taken. Has not received any of pm meds or feeding yet tonight. IV fluids started at 50ml/hr rate. Is resting quietly. Sequeira in place.
[2022-05-07] MEDS: dextrose 5%-sod chloride 0.9% 1,000 ML 50 ML IV (22:26)
[2022-05-07 22:37] LABS: Anion Gap 16.1 (5-19); Blood Urea Nitrogen 6 mg/dL (6-20); Calcium 8.9 mg/dL (8.5-10.5); Carbon Dioxide 21 mmol/L (22-29); Chloride 94 mmol/L (98-107); Glomerular Filtration Rate 266.9 mL/min (90-130); Glucose 89 mg/dL (65-115); Osmolality Calculated 261 mOsm/kg (285-295); Potassium 4.1 mmol/L (3.5-5.1); Sodium 127 mmol/L (136-145)
[2022-05-08] VITALS (8 sets, daily range): BP systolic 92–123; BP diastolic 60–70; PULSE 75–102; RESP 15–17; TEMP 36.5–37.2; O2SAT 93–99
[2022-05-08 06:00] LABS: Basophils % 0.8 %; Eosinophils # 0.1 10^3/uL (0.0-0.8); Eosinophils % 1.2 %; Hematocrit 29.2 % (37.0-47.0); Hemoglobin 9.5 g/dL (11.5-15.3); Lymphocytes # 2.9 10^3/uL (0.8-4.8); Lymphocytes % 56.5 %; Mean Corpuscular HGB Conc 32.5 g/dL (30.0-36.0); Mean Corpuscular Hemoglobin 31.4 pg (28.0-34.0); Mean Corpuscular Volume 96.4 fl (81-99); Mean Platelet Volume 9.3 fL (7.4-10.4); Monocytes # 0.7 10^3/uL (0.2-0.9); Monocytes % 14.2 %; Neutrophils # 1.36 10^3/uL (1.8-7.7); Neutrophils % 26.9 %; Nucleated Red Blood Cells % 0 %; Platelet Count 479 10^3/cmm (130-400); Red Blood Count 3.03 10^6/uL (4.1-5.3); Red Cell Distribution Width 13.4 % (12.1-15.1); White Blood Count 5.1 10^3/uL (4.0-10.0)
[2022-05-08 06:21] LABS: Alanine Aminotransferase 42 U/L (0-33); Albumin Level 3.4 g/dL (3.5-5.2); Alkaline Phosphatase 105 U/L (35-105); Anion Gap 12.9 (5-19); Aspartate Amino Transferase 46 U/L (0-32); Blood Urea Nitrogen 6 mg/dL (6-20); Calcium 8.7 mg/dL (8.5-10.5); Carbon Dioxide 25 mmol/L (22-29); Chloride 98 mmol/L (98-107); Globulin 2.8 g/dL (1.3-4.6); Glomerular Filtration Rate 266.9 mL/min (90-130); Glucose 88 mg/dL (65-115); Osmolality Calculated 271 mOsm/kg (285-295); Potassium 3.9 mmol/L (3.5-5.1); Sodium 132 mmol/L (136-145); Total Bilirubin 0.2 mg/dL (0.15-1.2); Total Protein 6.2 g/dL (6.6-8.7)
[2022-05-08] MEDS: levETIRAcetam 500 mg Tablet 1500 MG PO ×2 (09:03→20:58)
[2022-05-08] MEDS: hydrocortisone 10 mg Tablet 5 MG PO ×2 (09:05→17:21)
[2022-05-08] MEDS: baclofen 10 mg Tablet J-TUBE ×3 (09:05→20:58)
[2022-05-08] MEDS: famotidine 20 mg Tablet J-TUBE ×2 (09:05→20:58)
[2022-05-08] MEDS: CLONazepam 1 mg Tablet J-TUBE ×3 (09:05→20:58)
[2022-05-08] MEDS: levothyroxine 112 mcg Tablet J-TUBE (09:05)
[2022-05-08] MEDS: lactulose oral liq 20 gm/30 mL UDC 10 GM PEG-TUBE ×2 (09:06→20:58)
[2022-05-08] MEDS: heparin 5,000 unit/mL INJ 1 mL 5000 UNIT SUBCUT (17:22)
--- NOTE | 2022-05-08 19:50 | PM.PN ---
Subjective Subjective: She is nonverbal at baseline. Not following directions. Her sister states that she may sometimes respond, although has not been able to get her to respond today. Nurse states she has been opening her eyes. She does open her eyes and appears from me. When her arm is lifted, pulls it away. Vitals/I&O/Wt Last Vital Signs Temp 98.7 F 05/08/22 16:00 Pulse 90 05/08/22 18:24 Resp 16 05/08/22 18:24 BP 96/65 05/08/22 16:00 Pulse Ox 99 05/08/22 18:24 O2 Del Method 05/08/22 18:24 O2 Flow Rate 2 05/06/22 12:30 05/08/22 05/08/22 05/08/22 06:59 14:59 22:59 Intake Total 650 / 650 Output Total 700 / 700 500 / 500 350 / 850 Balance -700 / 1540 -500 / -500 300 / -200 Weight last 48 hrs Weight 78.5 kg Weight 76.612 kg Physical Exam Const: COMMON NORMALS: negative for alert GENERAL APPEARANCE: not cooperative HENMT: COMMON NORMALS: oropharynx normal Neck/C-Spine: COMMON NORMALS: no JVD Resp: COMMON NORMALS: normal respiratory effort and clear to auscultation bilaterally AUSCULTATION: clear to auscultation bilaterally Cardio: COMMON NORMALS: no JVD, regular rhythm, S1 normal heart sound present, S2 normal heart sound present and No murmurs present (Cardio) RHYTHM: regular rhythm HEART SOUNDS: S1 normal heart sound present and S2 normal heart sound present GI: COMMON NORMALS: Normal to inspection, nondistended, normoactive bowel sounds present, Soft to palpation and non-tender PALPATION: Yes Soft to palpation Extremity: COMMON NORMALS: no joint enlargement and no pedal edema Neuro: COMMON NORMALS: moves all extremities SENSORIUM/ORIENTATION: No alert Skin: COMMON NORMALS: no rashes or lesions noted GENERAL SKIN EXAM: no rashes or lesions noted Urinary Catheter Management: Sequeira: Cath Placed During This Visit: yes Reason for Continuing Indwelling Catheter: Other Urinary Catheter Date of Insertion: 05/06/22 Urinary Catheter Time of Insertion: 17:02 Data 05/08/22 05:35 05/08/22 05:35 A&P Assessment and plan (1) Metabolic encephalopathy: She was opening her eyes today, to be pulling her arm away and trying to lift it, but otherwise does not appear to respond or make eye contact. Sodium has improved, however, she may be usually more alert than currently. Her sister will coming to see her tomorrow. She is recovering from pneumonia. UA on presentation not suggestive of UTI. No noted seizure-like activity. We will check antiepileptic levels -lamotrigine, levetiracetam, phenobarbital, rufinamide. Patient does not have any white count, ABG is at baseline, no current signs of infection. Patient is on 2 L saturating 98%. Less likely infectious process. TSH slightly low, appreciate vitamin B12, folate, Pro-Corwin results. Restarted home dose of hydrocortisone at 5 mg twice daily. For now we will hold off on IV antibiotics. (2) Acute hyponatremia: Improved to 132. Continue hydrocortisone. 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 Continue all the antiseizure medications. Hold off on any further fluids or diuretics. Fluid restriction up to 2 L today. (3) Cerebral palsy: (4) Seizure disorder: (5) Intertrigo: Plan Recovering from pneumonia Famotidine for PUD prophylaxis Heparin 5000 every 12 hourly for DVT prophylaxis Sequeira catheterization Full code. Continue tube feeds. Dietitian consult. Discharge planning: Plan to discharge back to [facility] once medically stable. Attestations Medical Necessity Statement*: Continue admission for assessment and management of acute encephalopathy. Coding Level of Care Code [facility] Diagnoses Metabolic encephalopathy G93.41 Acute hyponatremia E87.1 Cerebral palsy G80.9 Seizure disorder G40.909 Intertrigo L30.4
[2022-05-08] MEDS: lamoTRIgine 100 mg Tablet 400 MG PEG-TUBE (20:58)
[2022-05-09] VITALS: BP 94/67; PULSE 99; RESP 16; TEMP 36.6; O2SAT 96
[2022-05-09 04:51] VITALS: BP 102/64; PULSE 94; RESP 17; TEMP 37.2; O2SAT 91
[2022-05-09] MEDS: heparin 5,000 unit/mL INJ 1 mL 5000 UNIT SUBCUT (04:55)
[2022-05-09 06:11] LABS: Basophils # 0.1 10^3/uL (0.0-0.1); Basophils % 1.2 %; Eosinophils # 0.2 10^3/uL (0.0-0.8); Eosinophils % 3.3 %; Hematocrit 30.9 % (37.0-47.0); Hemoglobin 10.2 g/dL (11.5-15.3); Lymphocytes # 3.1 10^3/uL (0.8-4.8); Lymphocytes % 59.3 %; Mean Corpuscular Hemoglobin 31.6 pg (28.0-34.0); Mean Corpuscular Volume 95.7 fl (81-99); Mean Platelet Volume 9.1 fL (7.4-10.4); Monocytes # 0.7 10^3/uL (0.2-0.9); Monocytes % 13.8 %; Neutrophils # 1.15 10^3/uL (1.8-7.7); Neutrophils % 22.2 %; Nucleated Red Blood Cells % 0 %; Platelet Count 527 10^3/cmm (130-400); Red Blood Count 3.23 10^6/uL (4.1-5.3); Red Cell Distribution Width 13.3 % (12.1-15.1); White Blood Count 5.2 10^3/uL (4.0-10.0)
[2022-05-09 06:32] LABS: Alanine Aminotransferase 36 U/L (0-33); Albumin Level 3.7 g/dL (3.5-5.2); Alkaline Phosphatase 108 U/L (35-105); Aspartate Amino Transferase 36 U/L (0-32); Blood Urea Nitrogen 5 mg/dL (6-20); Carbon Dioxide 23 mmol/L (22-29); Chloride 98 mmol/L (98-107); Globulin 2.9 g/dL (1.3-4.6); Glomerular Filtration Rate 191.5 mL/min (90-130); Glucose 77 mg/dL (65-115); Osmolality Calculated 270 mOsm/kg (285-295); Sodium 132 mmol/L (136-145); Total Bilirubin 0.2 mg/dL (0.15-1.2); Total Protein 6.6 g/dL (6.6-8.7)
[2022-05-09 06:33] LABS: Anion Gap 15.5 (5-19); Potassium 4.5 mmol/L (3.5-5.1)
[2022-05-09 07:30] VITALS: RESP 15; TEMP 36.8
[2022-05-09] MEDS: lactulose oral liq 20 gm/30 mL UDC 10 GM PEG-TUBE (08:18)
[2022-05-09] MEDS: hydrocortisone 10 mg Tablet 5 MG PO (08:19)
[2022-05-09] MEDS: levETIRAcetam 500 mg Tablet 1500 MG PO (08:19)
[2022-05-09] MEDS: lamoTRIgine 100 mg Tablet 400 MG PEG-TUBE (08:20)
[2022-05-09] MEDS: famotidine 20 mg Tablet J-TUBE (08:20)
[2022-05-09] MEDS: levothyroxine 112 mcg Tablet J-TUBE (08:20)
[2022-05-09] MEDS: baclofen 10 mg Tablet J-TUBE (08:20)
[2022-05-09] MEDS: CLONazepam 1 mg Tablet J-TUBE (08:20)
[2022-05-09 09:04] VITALS: PULSE 94; RESP 16; O2SAT 92
--- NOTE | 2022-05-09 11:09 | PC.SOCIAL ---
Pg 2 IMM Explained to pt's sister, Pg 2 IMM. No questions voiced. Provided pt a copy. Initialed, dated, & timed a copy & placed in chart.
[2022-05-09 11:35] VITALS: BP 88/59; PULSE 73; RESP 15; TEMP 36.5
--- NOTE | 2022-05-09 15:31 | PM.DCS ---
Discharge Providers Date of Admission: 05/06/22 16:14 Date of Discharge: May 09, 2022 Attending Provider at Admission: Yolanda Yanez MD Attending Provider at Discharge: Stone Moreno Primary Care Provider: Kelvin Naqvi Jr, MD Diagnoses at Discharge Discharge Diagnosis (1) Metabolic encephalopathy: Status: Acute (2) Acute hyponatremia: Status: Acute (3) Cerebral palsy: Status: Acute (4) Seizure disorder: Status: Acute (5) Intertrigo: Status: Acute Reason for Visit Reason for Visit: PNEUMONIA Hospital Course Hospital Course 27-year-old lady with cerebral palsy, spastic quadriplegia, cognitive deficit, requiring total assistance, normally noncommunicative, not following directions, normally alert, able to move around, move her head, with history of seizure disorder on multiple antiepileptics, with chronic and recurrent hyponatremia, return to the hospital after recent admission due to acute encephalopathy, monitor noted again hyponatremic down to 121, with decreased responsiveness, requiring oxygen supplementation up to 3 L, recent recovering from pneumonia, influenza pneumonia, on presentation found to be in metabolic encephalopathy, found to have not been resumed on hydrocortisone which was restarted in the hospital. Received initial IV hydration, subsequently a dose of Lasix, maintained on fluid restriction due to suspicion of SIADH. Continued on hydrocortisone. TSH noted slightly low at 0.14, but with normal free T4 0.96, free T3 2.1. Otherwise UA not suggestive of UTI. Pneumonia noted to be improving. B12, folic acid not low. No seizure-like activity noted in the hospital. Lamotrigine, levetiracetam, phenobarbital, rufinamide levels were requested, are pending. Sodium gradually improved up to 232 which stayed since yesterday. Yesterday still somewhat groggy, opening her eyes, but not as alert and active as usual but returned to her usual baseline today, was visited by her sister, and is returning for continued care at the longterm. Physical Exam Narrative: Spastic quadriplegia. Const: COMMON NORMALS: alert GENERAL APPEARANCE: not cooperative OTHER: Looking around, moving her head. HENMT: COMMON NORMALS: oropharynx normal Neck/C-Spine: COMMON NORMALS: no JVD Resp: COMMON NORMALS: normal respiratory effort and clear to auscultation bilaterally AUSCULTATION: clear to auscultation bilaterally Cardio: COMMON NORMALS: no JVD, regular rhythm, S1 normal heart sound present, S2 normal heart sound present and No murmurs present (Cardio) RHYTHM: regular rhythm HEART SOUNDS: S1 normal heart sound present and S2 normal heart sound present GI: COMMON NORMALS: Normal to inspection, nondistended, normoactive bowel sounds present, Soft to palpation and non-tender PALPATION: Yes Soft to palpation Extremity: COMMON NORMALS: no joint enlargement and no pedal edema Neuro: COMMON NORMALS: negative for moves all extremities SENSORIUM/ORIENTATION: Yes alert Urinary Catheter Management: Sequeira: Cath Placed During This Visit: no Discharge Data Studies Completed and Pending Completed Studies During Hospitalization Category Date Time Status XR chest 1V portable [id number] Stat Exams 05/06/22 11:50 Completed Pending at discharge Category Date Time Status Blood Culture Stat Lab 05/06/22 12:10 Results Lamotrigine (Lamictal) Level Routine Lab 05/08/22 19:53 Received Levetiracetam Immunoassy Routine Lab 05/08/22 19:53 Received Miscellaneous Test Routine Lab 05/08/22 19:59 Received Radiology Impressions Chest X-Ray 05/06/22 11:50 IMPRESSION: There is mild peribronchial wall thickening; query viral infection/bronchitis and/or asthma asthma. Laboratory Results WBC 5.2 10^3/uL (4.0-10.0) 05/09/22 05:50 RBC 3.23 10^6/uL (4.1-5.3) L 05/09/22 05:50 Hgb 10.2 g/dL (11.5-15.3) L 05/09/22 05:50 Hct 30.9 % (37.0-47.0) L 05/09/22 05:50 MCV 95.7 fl (81-99) 05/09/22 05:50 MCH 31.6 pg (28.0-34.0) 05/09/22 05:50 MCHC 33.0 g/dL (30.0-36.0) 05/09/22 05:50 RDW 13.3 % (12.1-15.1) 05/09/22 05:50 Plt Count 527 10^3/cmm (130-400) H 05/09/22 05:50 MPV 9.1 fL (7.4-10.4) 05/09/22 05:50 Neut % (Auto) 22.2 % 05/09/22 05:50 Lymph % (Auto) 59.3 % 05/09/22 05:50 [place] % (Auto) 13.8 % 05/09/22 05:50 Eos % (Auto) 3.3 % 05/09/22 05:50 Baso % (Auto) 1.2 % 05/09/22 05:50 Neut # (Auto) 1.15 10^3/uL (1.8-7.7) L 05/09/22 05:50 Lymph # (Auto) 3.1 10^3/uL (0.8-4.8) 05/09/22 05:50 [place] # (Auto) 0.7 10^3/uL (0.2-0.9) 05/09/22 05:50 Eos # (Auto) 0.2 10^3/uL (0.0-0.8) 05/09/22 05:50 Baso # (Auto) 0.1 10^3/uL (0.0-0.1) 05/09/22 05:50 Nucleated RBC % (auto) 0 % 05/09/22 05:50 Nucleated RBCs # 0.0 /100WBC 05/09/22 05:50 Specimen Type Arterial 05/06/22 12:21 Sample Site Radial, left 05/06/22 12:21 ABG pH 7.47 (7.35-7.45) H 05/06/22 12:21 ABG pCO2 38.3 mmHg (35-45) 05/06/22 12:21 ABG pO2 140.0 mmHg (80.0-100.0) H 05/06/22 12:21 ABG HCO3 27.6 mmol/L (22-26) H 05/06/22 12:21 ABG O2 Saturation 99.9 05/06/22 12:21 ABG Base Excess 3.7 mmol/L (-2.0-2.0) H 05/06/22 12:21 Suresh Test Pos 05/06/22 12:21 A-a O2 Gradient 1.7 mmHg (5-10) L 05/06/22 12:21 Hematocrit 33.0 % (37-47) L 05/06/22 12:21 Hgb O2 Saturation 99.7 % (95-100) 05/06/22 12:21 Carboxyhemoglobin 0.5 %THgb (0.4-20.1) 05/06/22 12:21 Methemoglobin < 0.0 % (0.4-1.5) L 05/06/22 12:21 Total Hemoglobin 10.8 g/dL (12-16) L 05/06/22 12:21 Sodium 121.0 mmol/L (131-143) L 05/06/22 12:21 Potassium 3.1 mmol/L (3.5-5.0) L 05/06/22 12:21 Glucose 103.0 mg/dL (70-115) 05/06/22 12:21 Ionized Calcium 1.1 mmol/L (1.1-1.4) 05/06/22 12:21 O2 Delivery Device Nc 05/06/22 12:21 O2 Liters/Min 2.0 % 05/06/22 12:21 FiO2 28.0 % 05/06/22 12:21 Scouring Machine Operator ID Cak 05/06/22 12:21 Sodium 132 mmol/L (136-145) L 05/09/22 05:50 Potassium 4.5 mmol/L (3.5-5.1) 05/09/22 05:50 Chloride 98 mmol/L (98-107) 05/09/22 05:50 Carbon Dioxide 23 mmol/L (22-29) 05/09/22 05:50 Anion Gap 15.5 (5-19) 05/09/22 05:50 BUN 5 mg/dL (6-20) L 05/09/22 05:50 Creatinine 0.4 mg/dL (0.5-0.9) L 05/09/22 05:50 GFR Calculation 191.5 mL/min (90-130) H 05/09/22 05:50 Glucose 77 mg/dL (65-115) 05/09/22 05:50 Estimat Average Glucose 91 05/07/22 05:00 Hemoglobin A1c 4.8 % (4.0-6.0) 05/07/22 05:00 Calculated Osmolality 270 mOsm/kg (285-295) L 05/09/22 05:50 Lactic Acid 1.0 mmol/L (0.5-2.2) 05/06/22 12:10 Calcium 9.0 mg/dL (8.5-10.5) 05/09/22 05:50 Phosphorus 2.5 mg/dL (2.5-4.5) 05/07/22 05:00 Magnesium 2.3 mg/dL (1.7-2.3) 05/07/22 05:00 Iron 31 ug/dL (37-145) L 05/06/22 12:10 TIBC 193 mcg/dl 05/06/22 12:10 % Saturation 16.0 % (20-50) L 05/06/22 12:10 Unsat Iron Binding 162 ug/dL (112-347) 05/06/22 12:10 Total Bilirubin 0.2 mg/dL (0.15-1.2) 05/09/22 05:50 AST 36 U/L (0-32) H 05/09/22 05:50 ALT 36 U/L (0-33) H 05/09/22 05:50 Alkaline Phosphatase 108 U/L (35-105) H 05/09/22 05:50 NT-Pro-B Natriuret Pep 328 pg/mL (0-125) H 05/06/22 12:10 Total Protein 6.6 g/dL (6.6-8.7) 05/09/22 05:50 Albumin 3.7 g/dL (3.5-5.2) 05/09/22 05:50 Globulin 2.9 g/dL (1.3-4.6) 05/09/22 05:50 Triglycerides 35 mg/dL (0-150) 05/07/22 05:00 Cholesterol 194 mg/dL (0-200) 05/07/22 05:00 LDL Cholesterol, Calc 102 mg/dL (50-129) 05/07/22 05:00 Total VLDL Cholesterol 7 mg/dL (0-30) 05/07/22 05:00 HDL Cholesterol 85 mg/dL (60-100) 05/07/22 05:00 Cholesterol/HDL Ratio 2.28 mg/dL (0.0-4.40) 05/07/22 05:00 Vitamin B12 > 2000 pg/mL (232-1245) H 05/06/22 12:10 Folate 9.9 ng/mL (4.8-37.3) 05/06/22 21:15 Procalcitonin 0.08 ng/mL (0-0.5) 05/06/22 12:10 TSH 0.14 uIU/mL (0.27-4.20) L 05/06/22 12:10 Free T4 0.96 ng/dL (0.82-1.77) 05/07/22 15:20 Free T4 Cancelled 05/07/22 15:20 Free T3 2.1 PG/ML (2.0-4.4) 05/07/22 15:20 Free T3 Cancelled 05/07/22 15:20 Urine Color Yellow (Yellow) 05/06/22 16:40 Urine Appearance Clear (CLEAR) 05/06/22 16:40 Urine pH 5 (5-7) 05/06/22 16:40 Ur Specific [place] 1.020 (1.005-1.030) 05/06/22 16:40 Urine Protein Trace (Negative) 05/06/22 16:40 Urine Glucose (UA) Norm (Normal) 05/06/22 16:40 Urine Ketones Negative (Negative) 05/06/22 16:40 Urine Blood Neg (Negative) 05/06/22 16:40 Urine Nitrate Negative (Negative) 05/06/22 16:40 Urine Bilirubin Neg (Negative) 05/06/22 16:40 Urine Urobilinogen Norm mg/dL (Negative) 05/06/22 16:40 Ur Leukocyte Esterase Negative (Negative) 05/06/22 16:40 Urine RBC Rare /hpf (0-2) 05/06/22 16:40 Urine WBC None /hpf (0-5) 05/06/22 16:40 Ur Squamous Epith Cells 0-4 /hpf (0-5) H 05/06/22 16:40 Calcium Oxalate Crystal 5-10 /hpf H 05/06/22 16:40 Amorphous Sediment Not Reportable 05/06/22 16:40 Urine Bacteria None /hpf (NONE) 05/06/22 16:40 Hyaline Casts 0-4 /lpf H 05/06/22 16:40 Ur Random Sodium 11 mmol/L 05/06/22 16:40 Ur Random Potassium 45 mmol/L 05/06/22 16:40 Ur Random Chloride 15 mmol/L 05/06/22 16:40 Nasal Influ A H1 2008 PCR Not detected (NOT DETECT) 05/06/22 12:38 Phenobarbital 23.4 ug/mL (10-30) 05/09/22 05:50 Coronavirus 229E (PCR) Not detected (NOT DETECT) 05/06/22 12:38 Influenza A (H1) PCR Not detected (NOT DETECT) 05/06/22 12:38 Influenza A (H3) PCR Not detected (NOT DETECT) 05/06/22 12:38 Influenza Type A (PCR) Not detected (NOT DETECT) 05/06/22 12:38 Influenza Type B (PCR) Not detected (NOT DETECT) 05/06/22 12:38 SARS-CoV-2 (PCR) Not detected (NOT DETECT) 05/06/22 12:38 Vitals Last Vital Signs Temp 97.7 F 05/09/22 11:35 Pulse 73 05/09/22 11:35 Resp 15 05/09/22 11:35 BP 88/59 05/09/22 11:35 Pulse Ox 92 05/09/22 09:04 O2 Del Method 05/09/22 09:04 O2 Flow Rate 2 05/06/22 12:30 Discharge Plan Discharge Patient Disposition: Xfer SNF Condition: Stable Prescriptions: New hydrocortisone 5 mg tablet 5 mg feeding tube BID Qty: 180 0RF Continued lamotrigine 200 mg tablet 400 mg feeding tube BID@08,20 rufinamide [Banzel] 400 mg tablet 1,400 mg feeding tube BID@08,20 dextromethorphan HBr 10 mg/5 mL Liquid 10 mg PO Q4H PRN (Reason: Cough) Milk of Magnesia 400 mg/5 mL suspension 30 ml peg-tube DAILY PRN (Reason: constipation) acetaminophen [Tylenol] 325 mg Tablet 650 mg feeding tube Q4H PRN (Reason: Pain) sennosides-docusate sodium [Senna-S] 8.6-50 mg Tablet 1 tab PO BID@08,20 clonazepam 1 mg tablet 1 mg feeding tube TID@08,12,20 famotidine 20 mg tablet 20 mg feeding tube BID@08,20 baclofen 10 mg Tablet 10 mg feeding tube TID@08,12,20 phenobarbital 30 mg tablet 60 mg feeding tube BID@08,20 levetiracetam 750 mg tablet 1,500 mg PO BID@08,20 levothyroxine 112 mcg tablet 112 mcg feeding tube DAILY@08 lactulose 10 gram/15 mL solution 10 g feeding tube DAILY@08 zinc oxide Paste See Rx Instructions .ROUTE .COMPLEX Rx Instructions: apply bid to affected area around peg tube Biofreeze (menthol) 4 % Gel See Rx Instructions .ROUTE .COMPLEX Rx Instructions: apply to left shoulder topically three times a day @09:00,14:00,21:00 Enteral Feed Order See Rx Instructions .ROUTE .COMPLEX Rx Instructions: (jevity 1.5) at (240cc) qid via bolus per g-tube at 07:00,11:00,16:00,22:00 (flush with 100cc h2o after each feeding) Discharge Orders: Discharge Order (Routine); Ordered 05/09/22 Ordered By: Stone Moreno Referrals: [facility] [Outside] Kelvin Naqvi Jr, MD [Primary Care Provider] - 4-7 days Discharge Diet: Resume prior tube feeds Patient Instructions: Opioid Safety, Pain Management Activity Restrictions/Additional Instructions: Recheck sodium in 3 days. Please follow-up with your epileptic levels. These were requested and are pending. Discharge Attestations Time Spent in Discharge Care*: greater than 30 min Status at Discharge: Cognitive status at discharge: severely impaired cognition (At baseline however. ), Quality Metrics Clinical Quality Measures [ No reported AMI, CVA or VTE this stay] Coding Level of Care Code Acute Chg FW DC note Diagnoses Metabolic encephalopathy G93.41 Acute hyponatremia E87.1 Cerebral palsy G80.9 Seizure disorder G40.909 Intertrigo L30.4
[2022-05-10 15:19] LABS: Levetiracetam Immunoassy 42.6 mcg/mL (6.0-46.0)
[2022-05-13 09:41] LABS: Lamotrigine (Lamictal) Level 7.4 mcg/mL (4.0-18.0)
== END 2022-05-09 13:22 | disposition skilled nursing facility (03) | DRG 643 ==
LOC: ER 15:25 → MEDSURG 16:30
PROVIDERS: Student in an Organized Health Care Education/Training Program; Admitting Provider Student in an Organized Health Care Education/Training Program; Emergency Provider Family Medicine; PCP Family Medicine; Visit Provider Internal Medicine
DX: E22.2 Syndrome of inappropriate secretion of antidiuretic hormone (principal); G80.0 Spastic quadriplegic cerebral palsy; G93.41 Metabolic encephalopathy; E23.0 Hypopituitarism; E87.6 Hypokalemia; Z93.1 Gastrostomy status; Z99.81 Dependence on supplemental oxygen; Z45.42 Encounter for adjustment and management of neurostimulator; G40.909 Epilepsy, unspecified, not intractable, without status epilepticus; L30.4 Erythema intertrigo; Z87.01 Personal history of pneumonia (recurrent); T42.75XA Adverse effect of unspecified antiepileptic and sedative-hypnotic drugs, initial encounter
CPT/HCPCS: 36415; 36600; 51702; 71045; 80048; 80051; 80053; 80061; 80175; 80177; 80184; 80339; 81001; 82330; 82436; 82607; 82746; 82805; 83036; 83540; 83550; 83605; 83735; 83880; 84100; 84133; 84145; 84300; 84439; 84443; 84481; 85025; 86403; 87040; 87449; 87631; 87635; 93005; 94664; 96372; J1644; J1720; J1940; J7042; J7120; J8499

== ENCOUNTER 2023-03-02 09:36 | Emergency (ER) | payer MEDICARE, MEDICAID, SELFPAY ==
[2023-03-02 09:38] VITALS: BP 112/62; PULSE 100; TEMP 36.4; O2SAT 96; BMI 24.4
--- NOTE | 2023-03-02 09:48 | XRR_ITS ---
PROCEDURE INFORMATION: Exam: XR Chest Exam date and time: 03/02/2023 10:06 AM Age: 27 years old Clinical indication: Other: Hypotension; Additional info: Hypotension, nonverbal TECHNIQUE: Imaging protocol: Radiologic exam of the chest. Views: 1 view. COMPARISON: CR XR chest 1V portable [id number] 05/06/2022 12:19 PM FINDINGS: Tubes, catheters and devices: Unchanged power pack with leads extending into the lower left neck. Lungs: Unremarkable. No consolidation. Pleural spaces: Unremarkable. No pleural effusion. No pneumothorax. Heart/Mediastinum: Unremarkable. No cardiomegaly. Bones/joints: Unchanged scoliosis with bilateral thoracic fixation rods. XR/XR chest 1V portable [id number] IMPRESSION: No acute disease.
--- NOTE | 2023-03-02 09:59 | ED_ITS ---
HPI - Weakness General: Chief complaint: Weakness Stated complaint: Hypotensive Time Seen by Provider: 03/02/23 09:48 History of Present Illness: 27-year-old nonverbal patient suffering from cerebral palsy presents to the emergency department from a local senior care facility. They are reporting blood pressure lower than usual. Patient has significant spasticity which sometimes makes it challenging to obtain accurate vital signs. However she is nonverbal and therefore it is also difficult to ascertain whether she is feeling unwell. They have sent her for a medical screening evaluation. Review of Systems General: Reports: ROS unobtainable due to medical condition and ROS unobtainable due to mental status [facility] ED PFSH: Medical History Acute hyponatremia Cerebral palsy Hyponatremia Hypothyroidism Panhypopituitarism Perforated tympanic membrane Seizure disorder Surgical History S/P percutaneous endoscopic gastrostomy (PEG) tube placement Status post VNS (vagus nerve stimulator) placement ? Family History Other Diabetes Hyperlipidemia Social History Smoking and tobacco status: never smoked Alcohol intake: never Substance/Drug Use: never Caregiver/support person: Yes Lives independently: No Household members: other Housing: Skilled Nursing Physical Exam Narrative: EXAM NARRATIVE: Awake, nonverbal except for some moaning. Disconjugate gaze. Difficult to examine pupils because she guards against elevation of her eyelids however from what I can see they appear to be round equal and reactive. Mucous membranes are extremely dry, there is some dried mucus sticking to her gums and into her posterior pharynx. Her heart rate is elevated. Her radial pulse in the right upper extremity was 2+. Skin of her hands is warm and well-perfused. She does have abnormal tone consistent with cerebral palsy. Her neck is mostly in extension and has some spastic movements. She intermittently draws up her arms. Her legs appear to be chronically spastic with her knees in flexion and her hips in flexion. Her abdomen contains a G-tube in the left upper quadrant. No signs of infection externally. Her abdomen is somewhat full appearing but not scaphoid. She seems to be guarding some when I palpate her abdomen. However, this does not appear to be specific to the abdomen as she guards in other areas that I examined as well. She is somewhat pale but I do not see any rashes or lesions. Her turgor is normal. Const: COMMON NORMALS: well nourished HENMT: COMMON NORMALS: atraumatic HEAD & SCALP: atraumatic Eye: COMMON NORMALS: conjunctivae normal and no scleral icterus CONJUNCTIVA: Yes conjunctivae normal Neck/C-Spine: COMMON NORMALS: no JVD GENERAL: Yes normal visual inspection and Yes trachea midline Resp: COMMON NORMALS: normal respiratory effort, No use of accessory muscles and clear to auscultation bilaterally AUSCULTATION: clear to auscultation bilaterally Cardio: COMMON NORMALS: no JVD and regular rhythm RHYTHM: regular rhythm GI: COMMON NORMALS: Soft to palpation and non-tender PALPATION: Yes Soft to palpation Extremity: COMMON NORMALS: normal to inspection Skin: COMMON NORMALS: no rashes or lesions noted, turgor normal and no jaundice GENERAL SKIN EXAM: no rashes or lesions noted and turgor normal Course Vital Signs: Vital signs: Vital Signs Temperature 97.5 F L 03/02/23 09:38 Pulse Rate 85 03/02/23 11:04 Respiratory Rate 16 03/02/23 11:04 Blood Pressure 105/81 03/02/23 11:04 Pulse Oximetry 96 03/02/23 11:04 Oxygen Delivery Me thod Room Air 03/02/23 10:33 MDM - Weakness Medical Decision Making Blood pressures have been variable since arrival. Were going to try him on multiple different areas with different size cuffs. I am going to go ahead and initiate a ED sepsis screen including lactic acid and procalcitonin given the difficulty with communication and examination. We will do blood cultures, lactic acid, CBC, CMP, urine analysis, chest x-ray. I Beverly go ahead and give her 2 L of fluid based on her weight-based resuscitation dose. We will continue to trend her vitals and reevaluate to determine whether we need to give empiric antibiotics. I did notice in the past that she had panhypopituitarism and a history of apparent adrenal insufficiency. I will go ahead and give her 50 mg of hydrocortisone while we are working her up. Update White blood cell count is normal, hemoglobin is 10.5, platelet count is 327,000 Electrolytes are normal, no significant acid-base disturbance, no glycemic abnormalities. Renal function normal. The BUN to creatinine ratio is actually slightly elevated. Given that she is quadriplegic this might actually be clinically significant to suggest a prerenal/dehydration situation. Urine analysis did not show any signs of infection. After 2 L of IV fluid patient was monitored and not showing any signs of distress or hypotension. Her heart rate has come down to 85. At this time we have no reason to do further emergent work-up or treatment. I am going to ask that they use a weight-based hydration formula given that she is exclusively fed through her PEG tube. I am also and asked that they follow-up with her primary care doctor in 3 to 5 days for repeat examination since there is limited communi cation. Lab Data 03/02/23 10:24 03/02/23 10:24 Radiology Impressions Chest X-Ray 03/02/23 09:48 IMPRESSION: No acute disease. Laboratory Results WBC 6.20 10^3/uL (3.29-11.43) 03/02/23 10:24 RBC 3.44 10^6/uL (3.85-5.65) L 03/02/23 10:24 Hgb 10.50 g/dL (11.27-16.99) L 03/02/23 10:24 Hct 31.1 % (36-47) L 03/02/23 10:24 MCV 90.4 fl (85-98) 03/02/23 10:24 MCH 30.5 pg (27-33) 03/02/23 10:24 MCHC 33.8 g/dL (30-55) 03/02/23 10:24 RDW 13.4 % (12.1-15.1) 03/02/23 10:24 Plt Count 327 10^3/cmm (157-399) 03/02/23 10:24 MPV 10.0 fL (7.4-10.4) 03/02/23 10:24 Neut % (Auto) 39.2 % 03/02/23 10:24 Lymph % (Auto) 43.7 % 03/02/23 10:24 [place] % (Auto) 14.2 % 03/02/23 10:24 Eos % (Auto) 1.8 % 03/02/23 10:24 Baso % (Auto) 0.8 % 03/02/23 10:24 Neut # (Auto) 2.43 10^3/uL (1.8-7.7) 03/02/23 10:24 Lymph # (Auto) 2.7 10^3/uL (0.8-4.8) 03/02/23 10:24 [place] # (Auto) 0.9 10^3/uL (0.2-0.9) 03/02/23 10:24 Eos # (Auto) 0.1 10^3/uL (0.0-0.8) 03/02/23 10:24 Baso # (Auto) 0.1 10^3/uL (0.0-0.1) 03/02/23 10:24 Nucleated RBC % (auto) 0 % 03/02/23 10:24 Nucleated RBCs # 0.0 /100WBC 03/02/23 10:24 Sodium 136 mmol/L (136-145) 03/02/23 10:24 Potassium 4.0 mmol/L (3.5-5.1) 03/02/23 10:24 Chloride 98 mmol/L (98-107) 03/02/23 10:24 Carbon Dioxide 29 mmol/L (22-29) 03/02/23 10:24 Anion Gap 13.0 (5-19) 03/02/23 10:24 BUN 13 mg/dL (6-20) 03/02/23 10:24 Creatinine 0.4 mg/dL (0.5-0.9) L 03/02/23 10:24 GFR Calculation 191.5 mL/min (90-130) H 03/02/23 10:24 Glucose 81 mg/dL (65-115) 03/02/23 10:24 Calculated Osmolality 281 mOsm/kg (285-295) L 03/02/23 10:24 Lactic Acid 1.0 mmol/L (0.5-2.2) 03/02/23 10:24 Calcium 9.3 mg/dL (8.5-10.5) 03/02/23 10:24 Total Bilirubin 0.2 mg/dL (0.15-1.2) 03/02/23 10:24 AST 23 U/L (0-32) 03/02/23 10:24 ALT 14 U/L (0-33) 03/02/23 10:24 Alkaline Phosphatase 248 U/L (35-105) H 03/02/23 10:24 Total Protein 7.8 g/dL (6.6-8.7) 03/02/23 10:24 Albumin 4.4 g/dL (3.5-5.2) 03/02/23 10:24 Globulin 3.4 g/dL (1.3-4.6) 03/02/23 10:24 Procalcitonin 0.03 ng/mL (0-0.5) 03/02/23 10:24 Urine Color Yellow (Yellow) 03/02/23 10:30 Urine Appearance Clear (CLEAR) 03/02/23 10:30 Urine pH 5 (5-7) 03/02/23 10:30 Ur Specific [place] 1.015 (1.005-1.030) 03/02/23 10:30 Urine Protein Neg (Negative) 03/02/23 10:30 Urine Glucose (UA) Norm (Normal) 03/02/23 10:30 Urine Ketones Negative (Negative) 03/02/23 10:30 Urine Blood Neg (Negative) 03/02/23 10:30 Urine Nitrate Negative (Negative) 03/02/23 10:30 Urine Bilirubin Neg (Negative) 03/02/23 10:30 Urine Urobilinogen Norm mg/dL (Negative) 03/02/23 10:30 Ur Leukocyte Esterase Negative (Negative) 03/02/23 10:30 Urine RBC Rare /hpf (0-2) 03/02/23 10:30 Urine WBC Rare /hpf (0-5) 03/02/23 10:30 Ur Squamous Epith Cells None /hpf (0-5) 03/02/23 10:30 Amorphous Sediment Not Reportable 03/02/23 10:30 Urine Bacteria None /hpf (NONE) 03/02/23 10:30 Urine Mucus Trace /hpf 03/02/23 10:30 All radiology interpretation(s) finalized by discharge Discharge Plan Discharge Patient Disposition: [facility] Clinical Impression: Encounter for medical screening examination Condition: Stable Discharge Orders: Discharge ED (Routine); Ordered 03/02/23 Ordered By: Zhao Young Referrals: Kelvin Naqvi Jr, MD [Primary Care Provider] - Activity Restrictions/Additional Instructions: Patient was screened in the emergency department for any signs of infection, poor perfusion, acid-base disturbance, glycemic disturbance, abnormal electrolytes, hypotension, dehydration, and other etiologies. She was given 2 L of IV fluids. We did not find any source of infection, sepsis, organ failure, or decompensation. There was probably some dehydration involved as her heart rate has trended down with IV fluids. At this point we do not have any specific recommendations for treatment other than to maintain a body weight based hydration status and continue to monitor vital signs and for any signs of agitation. Please have her do a follow-up with her primary physician in 3 to 5 days for repeat assessment. 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
--- NOTE | 2023-03-02 10:18 | PC.PHAR ---
PT IS FROM [facility] [phone]- PER [place] NURSE AT [facility] STATES THE PT HAD HER AM MEDS AND A PRN TYLENOL
[2023-03-02 10:30] LABS: Basophils # 0.1 10^3/uL (0.0-0.1); Basophils % 0.8 %; Eosinophils # 0.1 10^3/uL (0.0-0.8); Eosinophils % 1.8 %; Hematocrit 31.1 % (36-47); Lymphocytes # 2.7 10^3/uL (0.8-4.8); Lymphocytes % 43.7 %; Mean Corpuscular HGB Conc 33.8 g/dL (30-55); Mean Corpuscular Hemoglobin 30.5 pg (27-33); Mean Corpuscular Volume 90.4 fl (85-98); Monocytes # 0.9 10^3/uL (0.2-0.9); Monocytes % 14.2 %; Neutrophils # 2.43 10^3/uL (1.8-7.7); Neutrophils % 39.2 %; Nucleated Red Blood Cells % 0 %; Platelet Count 327 10^3/cmm (157-399); Red Blood Count 3.44 10^6/uL (3.85-5.65); Red Cell Distribution Width 13.4 % (12.1-15.1)
[2023-03-02 10:33] VITALS: BP 111/84; PULSE 91; RESP 16; O2SAT 97
[2023-03-02] MEDS: hydrocortisone 100 mg/2 mL SDV 50 MG IVP (10:52)
[2023-03-02 10:58] LABS: Alanine Aminotransferase 14 U/L (0-33); Albumin Level 4.4 g/dL (3.5-5.2); Alkaline Phosphatase 248 U/L (35-105); Aspartate Amino Transferase 23 U/L (0-32); Blood Urea Nitrogen 13 mg/dL (6-20); Calcium 9.3 mg/dL (8.5-10.5); Carbon Dioxide 29 mmol/L (22-29); Chloride 98 mmol/L (98-107); Globulin 3.4 g/dL (1.3-4.6); Glomerular Filtration Rate 191.5 mL/min (90-130); Glucose 81 mg/dL (65-115); Osmolality Calculated 281 mOsm/kg (285-295); Sodium 136 mmol/L (136-145); Total Bilirubin 0.2 mg/dL (0.15-1.2); Total Protein 7.8 g/dL (6.6-8.7)
[2023-03-02 11:04] VITALS: BP 105/81; PULSE 85; RESP 16; O2SAT 96
[2023-03-02 11:05] LABS: Procalcitonin 0.03 ng/mL (0-0.5)
[2023-03-02 12:27] LABS: Bilirubin Urine Neg (Negative); Blood Urine Neg (Negative); Glucose Urine UA Norm (Normal); Ketones Urine Negative (Negative); Leukocyte Esterase Urine Negative (Negative); Nitrate Urine Negative (Negative); Protein Urine Neg (Negative); Specific Gravity, Urine 1.015 (1.005-1.030); Urine Appearance Clear (CLEAR); Urine Color Yellow (Yellow); Urobilinogen Urine Norm (Negative); pH Urine 5 (5-7)
[2023-03-02 12:34] LABS: Add Urine Culture? No; Mucus Urine TRACE /hpf; RBC Urine RARE /hpf (0-2); WBC Urine RARE /hpf (0-5)
== END 2023-03-02 14:42 ==
PROVIDERS: Emergency Provider Emergency Medicine; PCP Family Medicine
DX: I95.9 Hypotension, unspecified (principal); G80.9 Cerebral palsy, unspecified
CPT/HCPCS: 36415; 71045; 80053; 81001; 83605; 84145; 85025; 87040; 87086; 96361; 96374; 99284; J1720; J7030

== ENCOUNTER 2023-06-13 07:01 | Emergency (ER) | payer MEDICARE, MEDICAID, SELFPAY ==
[2023-06-13 07:05] VITALS: BP 93/60; PULSE 71; TEMP 36.7; O2SAT 97
--- NOTE | 2023-06-13 08:37 | ED_ITS ---
HPI - General Adult General: Chief complaint: General Medical Stated complaint: G TUBE ISSUE Time Seen by Provider: 06/13/23 07:04 Source: patient Mode of arrival: ambulatory History of Present Illness: 28-year-old female resident jail with gastric tube in place gastric tube was found at the bedside this morning sometime through the night it had become dislodged. Patient has severe disability is unable to provide any information. No active bleeding from gastric tube stoma. Onset (ago): unknown Review of Systems General: Reports: ROS unobtainable due to medical condition PFSH ED PFSH: Medical History Acute hyponatremia Cerebral palsy Hyponatremia Hypothyroidism Panhypopituitarism Perforated tympanic membrane Seizure disorder Surgical History S/P percutaneous endoscopic gastrostomy (PEG) tube placement Status post VNS (vagus nerve stimulator) placement ? Family History Other Diabetes Hyperlipidemia Social History Smoking and tobacco/nicotine status: never used tobacco/nicotine Alcohol intake: never Substance/Drug Use: never Caregiver/support person: Yes Lives independently: No Household members: other Housing: Long-Term Physical Exam HENMT: COMMON NORMALS: normocephalic and atraumatic HEAD & SCALP: normocephalic and atraumatic Resp: COMMON NORMALS: normal respiratory effort, No retractions, No use of accessory muscles and clear to auscultation bilaterally AUSCULTATION: clear to auscultation bilaterally Cardio: COMMON NORMALS: regular rate, regular rhythm and No murmurs present (Cardio) RATE: regular rate RHYTHM: regular rhythm GI: COMMON NORMALS: Soft to palpation and No hepatosplenomegaly present AUSCULTATION: Yes normoactive bowel sounds PALPATION: Yes Soft to palpation, No Tenderness to palpation present (GI), No Guarding due to palpation present (GI) and Yes No hepatosplenomegaly present Extremity: COMMON NORMALS: normal to inspection, capillary refill normal, no clubbing, cyanosis or edema, no calf tenderness and no pedal edema Skin: COMMON NORMALS: no rashes or lesions noted GENERAL SKIN EXAM: no rashes or lesions noted Procedures Feeding Tube Replacement Type of Tube: gastrostomy Insertion Site Prior to Procedure: clean Tube Used for Reinsertion: Sequeira (Temporarily placed to maintain the stoma) and other (20 Lebanese G-tube) Lebanese Tube Size (F): 20 Balloon size (mL): 10 Verification of Placement: auscultation Tube Secured by: attachment device Patient Tolerated Procedure: well Course Vital Signs: Vital signs: Vital Signs Temperature 98.1 F 06/13/23 07:05 Pulse Rate 71 06/13/23 07:05 Blood Pressure 93/60 06/13/23 07:05 Pulse Oximetry 97 06/13/23 07:05 Oxygen Delivery Me thod Room Air 06/13/23 07:05 MDM - General Adult Medical Decision Making Initially had difficult time finding a G-tube. A Sequeira was briefly placed to maintain the stoma. We were able to find it 20 Lebanese G-tube was replaced easily bulb inflated secured with the appliance on the device. [facility] Medical Records I reviewed the patient's medical records. No radiology studies performed this visit Discharge Plan Discharge Patient Disposition: Home Clinical Impression: Complaint associated with gastric tube Condition: Stable Prescriptions: No Action lamotrigine 200 mg tablet 400 mg feeding tube BID@, rufinamide [Banzel] 400 mg tablet 1,400 mg feeding tube BID@,20 dextromethorphan HBr 10 mg/5 mL Liquid 10 mg PO Q4H PRN (Reason: Cough) magnesium hydroxide [Milk of Magnesia] 400 mg/5 mL suspension 30 ml peg-tube DAILY PRN (Reason: constipation) acetaminophen [Tylenol] 325 mg Tablet 650 mg feeding tube Q4H PRN (Reason: Pain) sennosides-docusate sodium [Senna-S] 8.6-50 mg Tablet 1 tab PO BID@,20 Rx Instructions: MAY HOLD FOR LOOSE STOOLS clonazepam 1 mg tablet 1 mg feeding tube TID@08,12,20 famotidine 20 mg tablet 20 mg feeding tube BID@08,20 baclofen 10 mg Tablet 10 mg feeding tube TID@08,12,20 phenobarbital 30 mg tablet 60 mg feeding tube BID@,20 levetiracetam 750 mg tablet 1,500 mg PO BID@08,20 lactulose 10 gram/15 mL solution 10 g feeding tube DAILY@08 Rx Instructions: may hold for loose stools Biofreeze (menthol) 4 % Gel See Rx Instructions .ROUTE .COMPLEX Rx Instructions: apply to left shoulder topically three times a day @09:00,14:00,21:00 Enteral Feed Order See Rx Instructions .ROUTE .COMPLEX Rx Instructions: (OSMOLIGHT 1.5) at (240cc) qid via bolus per g-tube at 07:00,11:00,16:00,22:00 (flush with 250cc h2o after each feeding) levothyroxine 100 mcg tablet 100 mcg feeding tube QAM bisacodyl 10 mg Suppository 10 mg IL DAILY PRN (Reason: Constipation) nystatin 100,000 unit/gram cream See Rx Instructions .ROUTE .COMPLEX Rx Instructions: APPLY TO G-TUBE SITE TOPICALLY TWO TIMES A DAY FOR REDNESS TO G-TUBE SITE (C LEANSE G-TUBE SITE WITH NS PAT DRY APPLY A THIN FILM OF CREAM OVER WITH SPLIT SPONGE) Gsajd-Li-Izl Enema 19-7 gram/118 mL Enema 118 ml IL DAILY PRN (Reason: Constipation) gabapentin 100 mg Capsule 100 mg feeding tube BID@08,20 Nyamyc 100,000 unit/gram powder See Rx Instructions .ROUTE .COMPLEX Rx Instructions: APPLY TO GROIN/ABDOMINAL FOLDS TOPICALLY EVERY 12 HOURS NEEDED FOR REDNESS Genteal Tears Night-Time Ointment 1 applic ophthalmic (eye) BEDTIME Rx Instructions: both eyes Discharge Orders: Discharge ED (Routine); Ordered 06/13/23 Ordered By: Robert Fisher Referrals: Kelvin Naqvi Jr, MD [Primary Care Provider] - Discharge Diet: Usual diet Discharge Activity: Resume usual activity Patient Instructions: Opioid Safety, Pain Management Activity Restrictions/Additional Instructions: Thank you for choosing [facility] for your healthcare needs today. Please realize this is an emergency room and that we are providing you with a medical screening exam and this may not be complete and all inclusive of all the testing and or work up that you may need to determine your ailment or severity of your illness. It is very important that you follow up as instructed or that you return to the Emergency Department should you have concerns or if your condition changes or worsens in any way. Coding Level of Care Code ED Medical Office Manager for Lobito Paula
[2023-06-13 09:00] VITALS: BP 85/59; PULSE 61; O2SAT 100
--- NOTE | 2023-06-13 09:00 | PC.NURSE ---
DR RODRIGUEZ PLACED AVANOS 20 KYRGYZ GASTROSTOMY FEEDING TUBE. PT TOLERATED PROCEDURE WELL.
--- NOTE | 2023-06-13 09:21 | PC.NURSE ---
PATIENT IS DISCHARGED. PATIENT IS WAITING ON EMS RIDE BACK TO [facility]IDENTIAL AT THIS TIME.
--- NOTE | 2023-06-13 10:05 | PC.NURSE ---
PT REPORT ATTEMPTED 2 TIMES TO [place] WITH NO ANSWER. CHARGE NURSE NOTIFIED.
== END 2023-06-13 10:08 | disposition home or self-care (01) ==
PROVIDERS: Emergency Provider Family Medicine; PCP Family Medicine
DX: K94.20 Gastrostomy complication, unspecified (principal); G80.9 Cerebral palsy, unspecified
CPT/HCPCS: 99283

== ENCOUNTER 2024-09-29 11:53 | Inpatient (IN) | payer MEDICARE, MEDICAID, SELFPAY ==
[2024-09-29] VITALS (14 sets, daily range): BP systolic 80–113; BP diastolic 58–90; PULSE 103–132; RESP 18–29; TEMP 36.8–39.9; O2SAT 91–100
--- NOTE | 2024-09-29 12:24 | CTR_ITS ---
PROCEDURE INFORMATION: Exam: CT Abdomen And Pelvis With Contrast Exam date and time: 09/29/2024 2:24 PM Age: 29 years old Clinical indication: Abdominal pain; Generalized; Prior surgery; Surgery date: 6+ months; Surgery type: Reardon rods; Additional info: Abd pain TECHNIQUE: Imaging protocol: Computed tomography of the abdomen and pelvis with contrast. Axial, coronal and sagittal reformatted images were created and reviewed. Radiation optimization: All CT scans at this facility use at least one of these dose optimization techniques: automated exposure control; mA and/or kV adjustment per patient size (includes targeted exams where dose is matched to clinical indication); or iterative reconstruction. Contrast material: OMNIPAQUE 350; Contrast volume: 100 ml; Contrast route: INTRAVENOUS (IV); COMPARISON: CT abdomen pelvis wo con [id number] 04/01/2020 7:24 PM RADIATION DOSE METRICS: Total DLP (mGy-cm): 1024.76 FINDINGS: Tubes, catheters and devices: Percutaneous gastrostomy tube in place. Liver: Unremarkable. Gallbladder and biliary ducts: 5 mm gallstone versus polyp. Mild gallbladder distension. Pancreas: Unremarkable. Spleen: Unremarkable. Adrenal glands: Normal. No mass. Kidneys and ureters: No mass. No radiodense calculi. No hydronephrosis. Stomach and bowel: No bowel wall thickening. No obstruction. No pneumatosis. Appendix: Normal. Intraperitoneal space: No free fluid. No organized fluid collection. No free air. Vasculature: Unremarkable. No aneurysm. Lymph nodes: No pathologically enlarged lymph nodes. Urinary bladder: Unremarkable as visualized. Reproductive: Status post hysterectomy. Bones/joints: No acute osseous abnormality. Osteopenia. Extensive posterior spinal fusion hardware. Soft tissues: Unremarkable. CT/CT abdomen pelvis w con* [id number]: 1[address] No CT evidence of acute intra-abdominal or pelvic pathology. 2. Additional findings, as above.
[2024-09-29] MEDS: ketamine 100 mg/mL Inj 5 mL 200 MG IM (13:43)
[2024-09-29 14:05] LABS: Basophils # 0.1 10^3/uL (0.0-0.1); Basophils % 0.6 %; Eosinophils # 0.3 10^3/uL (0.0-0.8); Eosinophils % 2.2 %; Hematocrit 29.7 % (36-47); Lymphocytes # 3.9 10^3/uL (0.8-4.8); Lymphocytes % 27.4 %; Mean Corpuscular Hemoglobin 30.4 pg (27-33); Mean Corpuscular Volume 89.5 fl (85-98); Mean Platelet Volume 9.9 fL (7.4-10.4); Monocytes # 1.9 10^3/uL (0.2-0.9); Monocytes % 13.5 %; Neutrophils # 7.92 10^3/uL (1.8-7.7); Neutrophils % 55.9 %; Nucleated Red Blood Cells % 0 %; Platelet Count 306 10^3/cmm (157-399); Red Blood Count 3.32 10^6/uL (3.85-5.65); Red Cell Distribution Width 12.8 % (12.1-15.1); White Blood Count 14.18 10^3/uL (3.29-11.43)
[2024-09-29 14:17] LABS: Bilirubin Urine Negative (Negative); Blood Urine Negative (Negative); Glucose Urine UA Negative (Normal); Ketones Urine Negative (Negative); Leukocyte Esterase Urine Negative (Negative); Nitrate Urine Negative (Negative); Protein Urine Negative (Negative); Specific Gravity, Urine 1.018 (1.005-1.030); Urine Appearance Clear (CLEAR); Urine Color Yellow (Yellow); Urobilinogen Urine 0.2 mg/dL (Negative)
[2024-09-29 14:20] LABS: Add Urine Microscopic? YES; Bacteria Urine None Seen /hpf; Hyaline Casts Urine 0.81 /lpf; RBC Urine 0-2 /hpf (0-2); Squamous Epithelial Cell Urine 0-5 /hpf (0-5); WBC Urine 0-5 /hpf (0-5)
[2024-09-29 14:23] LABS: Alanine Aminotransferase 19 U/L (0-33); Albumin Level 4.6 g/dL (3.5-5.2); Alkaline Phosphatase 161 U/L (35-105); Aspartate Amino Transferase 24 U/L (0-32); Blood Urea Nitrogen 7 mg/dL (6-20); Calcium 9.5 mg/dL (8.5-10.5); Carbon Dioxide 24 mmol/L (22-29); Chloride 89 mmol/L (98-107); Creatinine Clr Calc Pharmacy 219.0322; Globulin 3.9 g/dL (1.3-4.6); Glomerular Filtration Rate 188.7 mL/min (90-130); Glucose 104 mg/dL (65-115); Lipase 87 U/L (13-60); Osmolality Calculated 262 mOsm/kg (285-295); Sodium 127 mmol/L (136-145); Total Bilirubin 0.3 mg/dL (0.15-1.2); Total Protein 8.5 g/dL (6.6-8.7)
[2024-09-29] MEDS: iohexol 350 mg/mL 500 mL Btl (per mL) IV (14:28)
[2024-09-29 14:29] LABS: UA Slide Review UA Slide Review Perf
--- NOTE | 2024-09-29 14:31 | W.ED.GENADLT ---
HPI - General Adult General: Chief complaint: General Medical Stated complaint: abd pain Time Seen by Provider: 09/29/24 11:55 History of Present Illness: 29-year-old female who presents to the emergency room with complaints of altered mental status calling out in pain. Patient is nonverbal has a history of severe scoliosis cerebral palsy. She not been running a fever there is concern because she seemed to be calling out in pain she is slightly tachycardic on arrival she cannot contribute anything to history. Related Data Home Medications ?Medication ?Instructions ?Recorded ?Confirmed lamotrigine 200 mg tablet 400 mg feeding tube BID@08,20 04/01/20 09/29/24 rufinamide 400 mg tablet (Banzel) 1,400 mg feeding tube BID@,04/01/20 09/29/24 acetaminophen 325 mg tablet 650 mg feeding tube Q4H PRN Pain 04/26/22 09/29/24 (Tylenol) famotidine 20 mg tablet 20 mg feeding tube BID@08,20 04/26/22 09/29/24 lactulose 10 gram/15 mL oral 10 g feeding tube DAILY@08 04/26/22 09/29/24 solution levetiracetam 750 mg tablet 1,500 mg PO BID@,20 04/26/22 09/29/24 menthol 4 % topical gel (Biofreeze See Rx Instructions .Route .COMPLEX 04/26/22 09/29/24 (menthol)) phenobarbital 30 mg tablet 60 mg feeding tube BID@08,20 04/26/22 09/29/24 sennosides 8.6 mg-docusate sodium 1 tab PO BID@,20 04/26/22 09/29/24 50 mg tablet (Senna-S) magnesium hydroxide 400 mg/5 mL 30 ml peg-tube DAILY PRN 05/06/22 09/29/24 oral suspension (Milk of Magnesia) constipation bisacodyl 10 mg rectal suppository 10 mg DC DAILY PRN Constipation 03/02/23 09/29/24 nystatin 100,000 unit/gram topical See Rx Instructions .Route .COMPLEX 03/02/23 09/29/24 cream nystatin 100,000 unit/gram topical See Rx Instructions .Route .COMPLEX 03/02/23 09/29/24 powder (Nyamyc) sodium phosphates 19 gram-7 118 ml DC DAILY PRN Constipation 03/02/23 09/29/24 gram/118 mL enema (Uvibs-Or-Svl Enema) baclofen 5 mg tablet 5 mg feeding tube BID 09/29/24 09/29/24 hydrocodone 10 mg-acetaminophen 1 tab feeding tube BID PRN Pain 09/29/24 09/29/24 325 mg tablet levothyroxine 50 mcg tablet 50 mcg feeding tube DAILY 09/29/24 09/29/24 white petrolatum-mineral oil 94 1 applic ophthalmic (eye) DAILY 09/29/24 09/29/24 %-3 % eye ointment Allergies Allergy/AdvReac Type Severity Reaction Status Date / Time diphenhydramine (From Allergy ADR-Seizure Verified 06/13/23 07:12 Benadryl) Review of Systems General: Reports: ROS unobtainable due to mental status [facility] ED PFSH: Medical History Acute hyponatremia Hypothyroidism Panhypopituitarism Hyponatremia Perforated tympanic membrane Seizure disorder Cerebral palsy Surgical History Status post VNS (vagus nerve stimulator) placement ? S/P percutaneous endoscopic gastrostomy (PEG) tube placement Family History Other Diabetes Hyperlipidemia Social History Smoking and tobacco/nicotine status: never used tobacco/nicotine Alcohol intake: never Substance/Drug Use: never Caregiver/support person: Yes Lives independently: No Household members: other Housing: Long-Term Physical Exam HENMT: COMMON NORMALS: normocephalic and atraumatic HEAD & SCALP: normocephalic and atraumatic OTHER: Left TM has fluid in the external auditory canal appears to have asked external otitis. Difficult to visualize the tympanic membrane. The fluid is semipurulent thin. There is some cerumen in the canal as well. The right TM is clear Resp: COMMON NORMALS: normal respiratory effort, No retractions, No use of accessory muscles and clear to auscultation bilaterally AUSCULTATION: clear to auscultation bilaterally Cardio: COMMON NORMALS: regular rate, regular rhythm and No murmurs present (Cardio) RATE: regular rate RHYTHM: regular rhythm GI: PALPATION: Yes Tenderness to palpation present (GI) Extremity: COMMON NORMALS: normal to inspection, capillary refill normal, no clubbing, cyanosis or edema, no calf tenderness and no pedal edema Skin: COMMON NORMALS: no rashes or lesions noted GENERAL SKIN EXAM: no rashes or lesions noted OTHER: Superficial decubitus ulcer a millimeter or 2 in with an approximately 2 cm in length overlying the tip of the coccyx no supra ending erythema or induration Course Vital Signs: Vital signs: Vital Signs Temperature 98.3 F 09/29/24 11:55 Pulse Rate 131 H 09/29/24 16:15 Respiratory Rate 19 H 09/29/24 16:15 Blood Pressure 113/81 09/29/24 16:15 Pulse Oximetry 95 09/29/24 15:34 Oxygen Delivery Me thod Room Air 09/29/24 15:34 MDM - General Adult Medical Decision Making Patient is tachycardic and has leukocytosis but she has no fever. We did do conscious sedation with ketamine 200 mg IM to get an IV placed on the CT her abdomen. There are no significant findings her chest x-ray was negative. We also repeat repeated ketamine at 100 mg to do a head CT CT of the head was also unremarkable. She has a small very superficial sacral ulcer that does not appear to have any infection she has a left otitis externa. Neither of these have expected given the degree of tachycardia that we have noted. Cultures were done. Initially we will start her on Zosyn prophylactically and placed on observation. Discussed with Dr. Wong orders written Medical Records I reviewed the patient's medical records. Lab Data I reviewed the patient's lab results. 09/29/24 13:56 09/29/24 13:56 Radiology Impressions Abdomen/Pelvis CT 09/29/24 12:[address]: [address] evidence of acute intra-abdominal or pelvic pathology. 2. Additional findings, as above. Chest X-Ray 09/29/24 16:00 IMPRESSION: No acute radiographic findings. Laboratory Results WBC 14.18 10^3/uL (3.29-11.43) H 09/29/24 13:56 RBC 3.32 10^6/uL (3.85-5.65) L 09/29/24 13:56 Hgb 10.10 g/dL (11.27-16.99) L 09/29/24 13:56 Hct 29.7 % (36-47) L 09/29/24 13:56 MCV 89.5 fl (85-98) 09/29/24 13:56 MCH 30.4 pg (27-33) 09/29/24 13:56 MCHC 34.0 g/dL (30-55) 09/29/24 13:56 RDW 12.8 % (12.1-15.1) 09/29/24 13:56 Plt Count 306 10^3/cmm (157-399) 09/29/24 13:56 MPV 9.9 fL (7.4-10.4) 09/29/24 13:56 Neut % (Auto) 55.9 % 09/29/24 13:56 Lymph % (Auto) 27.4 % 09/29/24 13:56 [place] % (Auto) 13.5 % 09/29/24 13:56 Eos % (Auto) 2.2 % 09/29/24 13:56 Baso % (Auto) 0.6 % 09/29/24 13:56 Neut # (Auto) 7.92 10^3/uL (1.8-7.7) H 09/29/24 13:56 Lymph # (Auto) 3.9 10^3/uL (0.8-4.8) 09/29/24 13:56 [place] # (Auto) 1.9 10^3/uL (0.2-0.9) H 09/29/24 13:56 Eos # (Auto) 0.3 10^3/uL (0.0-0.8) 09/29/24 13:56 Baso # (Auto) 0.1 10^3/uL (0.0-0.1) 09/29/24 13:56 Nucleated RBC % (auto) 0 % 09/29/24 13:56 Nucleated RBCs # 0.0 /100WBC 09/29/24 13:56 Sodium 127 mmol/L (136-145) L 09/29/24 13:56 Potassium 4.0 mmol/L (3.5-5.1) 09/29/24 13:56 Chloride 89 mmol/L (98-107) L 09/29/24 13:56 Carbon Dioxide 24 mmol/L (22-29) 09/29/24 13:56 Anion Gap 18.0 (5-19) 09/29/24 13:56 BUN 7 mg/dL (6-20) 09/29/24 13:56 Creatinine 0.4 mg/dL (0.5-0.9) L 09/29/24 13:56 GFR Calculation 188.7 mL/min (90-130) H 09/29/24 13:56 Glucose 104 mg/dL (65-115) 09/29/24 13:56 Calculated Osmolality 262 mOsm/kg (285-295) L 09/29/24 13:56 Lactic Acid 1.9 mmol/L (0.5-2.2) 09/29/24 13:56 Calcium 9.5 mg/dL (8.5-10.5) 09/29/24 13:56 Total Bilirubin 0.3 mg/dL (0.15-1.2) 09/29/24 13:56 AST 24 U/L (0-32) 09/29/24 13:56 ALT 19 U/L (0-33) 09/29/24 13:56 Alkaline Phosphatase 161 U/L (35-105) H 09/29/24 13:56 Total Protein 8.5 g/dL (6.6-8.7) 09/29/24 13:56 Albumin 4.6 g/dL (3.5-5.2) 09/29/24 13:56 Globulin 3.9 g/dL (1.3-4.6) 09/29/24 13:56 Lipase 87 U/L (13-60) H 09/29/24 13:56 Urine Color Yellow (Yellow) 09/29/24 14:06 Urine Appearance Clear (CLEAR) 09/29/24 14:06 Urine pH 6.0 (5-7) 09/29/24 14:06 Ur Specific [place] 1.018 (1.005-1.030) 09/29/24 14:06 Urine Protein Negative (Negative) 09/29/24 14:06 Urine Glucose (UA) Negative (Normal) 09/29/24 14:06 Urine Ketones Negative (Negative) 09/29/24 14:06 Urine Blood Negative (Negative) 09/29/24 14:06 Urine Nitrate Negative (Negative) 09/29/24 14:06 Urine Bilirubin Negative (Negative) 09/29/24 14:06 Urine Urobilinogen 0.2 mg/dL (Negative) 09/29/24 14:06 Ur Leukocyte Esterase Negative (Negative) 09/29/24 14:06 Urine RBC 0-2 /hpf (0-2) 09/29/24 14:06 Urine WBC 0-5 /hpf (0-5) 09/29/24 14:06 Ur Squamous Epith Cells 0-5 /hpf (0-5) 09/29/24 14:06 Amorphous Sediment Not Reportable 09/29/24 14:06 Urine Bacteria None seen /hpf (NONE) 09/29/24 14:06 Hyaline Casts 0.81 /lpf 09/29/24 14:06 All radiology interpretation(s) finalized by discharge Discharge Plan Discharge Patient Disposition: Placed in Observation Clinical Impression: Leukocytosis, Hyponatremia, Tachycardia Condition: Stable Prescriptions: No Action lamotrigine 200 mg tablet 400 mg feeding tube BID@08,20 rufinamide [Banzel] 400 mg tablet 1,400 mg feeding tube BID@08,20 magnesium hydroxide [Milk of Magnesia] 400 mg/5 mL suspension 30 ml peg-tube DAILY PRN (Reason: constipation) hydrocodone-acetaminophen 10-325 mg tablet 1 tab feeding tube BID PRN (Reason: Pain) levothyroxine 50 mcg tablet 50 mcg feeding tube DAILY GenTeal PM 94-3 % Ointment 1 applic OPHTHALMIC (EYE) DAILY baclofen 5 mg tablet 5 mg feeding tube BID acetaminophen [Tylenol] 325 mg Tablet 650 mg feeding tube Q4H PRN (Reason: Pain) sennosides-docusate sodium [Senna-S] 8.6-50 mg Tablet 1 tab PO BID@08,20 Rx Instructions: MAY HOLD FOR LOOSE STOOLS famotidine 20 mg tablet 20 mg feeding tube BID@08,20 phenobarbital 30 mg tablet 60 mg feeding tube BID@08,20 levetiracetam 750 mg tablet 1,500 mg PO BID@08,20 lactulose 10 gram/15 mL solution 10 g feeding tube DAILY@08 Rx Instructions: may hold for loose stools Biofreeze (menthol) 4 % Gel See Rx Instructions .ROUTE .COMPLEX Rx Instructions: apply to left shoulder topically three times a day @09:00,14:00,21:00 bisacodyl 10 mg Suppository 10 mg DC DAILY PRN (Reason: Constipation) nystatin 100,000 unit/gram cream See Rx Instructions .ROUTE .COMPLEX Rx Instructions: APPLY TO G-TUBE SITE TOPICALLY TWO TIMES A DAY FOR REDNESS TO G-TUBE SITE (CLEANSE G-TUBE SITE WITH NS PAT DRY APPLY A THIN FILM OF CREAM OVER WITH SPLIT SPONGE) Qphky-Eo-Dnd Enema 19-7 gram/118 mL Enema 118 ml DC DAILY PRN (Reason: Constipation) nystatin [[facility]] 100,000 unit/gram powder See Rx Instructions .ROUTE .COMPLEX Rx Instructions: APPLY TO GROIN/ABDOMINAL FOLDS TOPICALLY EVERY 12 HOURS NEEDED FOR REDNESS Referrals: Kelvin Naqvi Jr, MD [Primary Care Provider] - Print Language: Occitan Coding Level of Care Code ED Fuel Testing Technician for Lobito Paula
[2024-09-29] MEDS: sodium chloride 0.9% 1,000 ML 999 ML IV (15:21)
--- NOTE | 2024-09-29 16:00 | XRR_ITS ---
PROCEDURE INFORMATION: Exam: XR Chest Exam date and time: 09/29/2024 4:26 PM Age: 29 years old Clinical indication: Condition or disease; Other: Leukocytosis TECHNIQUE: Imaging protocol: Radiologic exam of the chest. Views: 1 view. COMPARISON: CR XR chest 1V portable [id number] 03/02/2023 10:06 AM FINDINGS: Tubes, catheters and devices: Battery pack overlying the left hemithorax. Lungs: Unremarkable. No consolidation. Pleural spaces: Unremarkable. No pleural effusion. No pneumothorax. Heart/Mediastinum: Unremarkable. No cardiomegaly. Bones/joints: Levoscoliosis. Reardon rods. Osteopenia. XR/XR chest 1V portable [id number] IMPRESSION: No acute radiographic findings.
[2024-09-29] MEDS: ketamine 100 mg/mL Inj 5 mL IVP (16:15)
[2024-09-29 16:27] LABS: Lactic Sepsis W/Reflex 1.9 mmol/L (0.5-2.2)
--- NOTE | 2024-09-29 16:34 | CTR_ITS ---
PROCEDURE INFORMATION: Exam: CT Head Without Contrast Exam date and time: 09/29/2024 5:01 PM Age: 29 years old Clinical indication: Altered mental status/memory loss; Confusion or disorientation TECHNIQUE: Imaging protocol: Computed tomography of the head without contrast. Axial, coronal and sagittal reformatted images were created and reviewed. Radiation optimization: All CT scans at this facility use at least one of these dose optimization techniques: automated exposure control; mA and/or kV adjustment per patient size (includes targeted exams where dose is matched to clinical indication); or iterative reconstruction. COMPARISON: CT head wo con* [id number] 10/24/2020 1:47 PM RADIATION DOSE METRICS: Total DLP (mGy-cm): 1917.38 FINDINGS: Brain: No CT evidence of acute intracranial hemorrhage or acute territorial infarction. No significant mass effect or midline shift. Basal cisterns patent. Cerebral ventricles: Prominence of the cortical sulci, cisterns and ventricular system, consistent with cerebral and cerebellar volume loss. Paranasal sinuses: Polypoid mucosal thickening of the ethmoid air cells and paranasal sinuses.. No fluid levels. Mastoid air cells: Severe left francine mastoiditis. Partial opacification of the right mastoid air cells. Bones: Unremarkable. No acute fracture. Soft tissues: Grossly unremarkable. CT/CT head wo con* [id number] IMPRESSION: 1. No CT evidence of acute intracranial pathology. 2. Additional findings, as above.
--- NOTE | 2024-09-29 16:37 | PC.NURSE ---
moderate sedation @ 1615 1615 - Ketamine 100mg IVP ONCE 1618 - HR 156, SPO2 desatting, and initiated jaw thrust and bag mask 1619 - patient recovered with patent airway and placed on 3 L NC 1640 vitals - HR 127 SPO2- 99% BP 89/39
--- NOTE | 2024-09-29 17:48 | P.HP_ITS ---
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 I cannot get any significant history from patient, in the emergency room she was found to be tachycardic heart rates up up into the 130s, febrile up today 99.9, white blood cell count 14.18, lactic acid 1.9, UA no UTI, chest x-ray no focal pneumonia, abdominal CT no acute findings Review of Systems 2 General: Reports: ROS unobtainable due to mental status Medications/Allergies Home Medications ?Medication ?Instructions ?Recorded ?Confirmed ?Last Taken ?Type lamotrigine 200 mg tablet 400 mg feeding tube BID@, 0 04/01/20 09/29/24 09/29/24 08:45 History rufinamide 400 mg tablet (Banzel) 1,400 mg feeding tub e BID@04/01/20 09/29/24 09/29/24 08:45 History acetaminophen 325 mg tablet 650 mg feeding tube Q4H TN N Pain 04/26/22 09/29/24 09/27/24 01:30 History (Tylenol) famotidine 20 mg tablet 20 mg feeding tube BID@04/26/22 09/29/24 09/29/24 08:45 History lactulose 10 gram/15 mL oral 10 g feeding tube DAILY@0 8 04/26/22 09/29/24 09/29/24 08:45 History solution levetiracetam 750 mg tablet 1,500 mg PO BID@, 1106/2709/29/24 09/29/24 08:45 History menthol 4 % topical gel (Biofreeze See Rx Instructions .Route .COMPLEX 04/26/22 09/29/24 09/29/24 08:25 History (menthol)) phenobarbital 30 mg tablet 60 mg feeding tube BID@, 0 1109/29/24 09/29/24 08:45 History sennosides 8.6 mg-docusate sodium 1 tab PO BID@08,20 1 06/26/21 09/29/24 09/29/24 08:45 History 50 mg tablet (Senna-S) magnesium hydroxide 400 mg/5 mL 30 ml peg-tube DAILY P RN 05/06/22 09/29/24 08/25/24 13:35 History oral suspension (Milk of Magnesia) constipation bisacodyl 10 mg rectal suppository 10 mg TN DAILY PRN Constipation 03/02/23 09/29/24 07/08/24 16:35 History nystatin 100,000 unit/gram topical See Rx Instructions .Route .COMPLEX 03/02/23 09/29/24 Unknown History cream nystatin 100,000 unit/gram topical See Rx Instructions .Route .COMPLEX 03/02/23 09/29/24 Unknown History powder (Nyamyc) sodium phosphates 19 gram-7 118 ml TN DAILY PRN Consti pation 03/02/23 09/29/24 04/27/24 19:10 History gram/118 mL enema (Tzbvd-Ds-Ohv Enema) baclofen 5 mg tablet 5 mg feeding tube BID 09/29/24 09/29/24 08:45 History hydrocodone 10 mg-acetaminophen 1 tab feeding tube BID PRN Pain 09/29/24 09/29/24 09/29/24 08:45 History 325 mg tablet levothyroxine 50 mcg tablet 50 mcg feeding tube DAILY 09/29/24 09/29/24 09/29/24 08:45 History white petrolatum-mineral oil 94 1 applic ophthalmic (e ye) DAILY 09/29/24 09/29/24 09/28/24 17:00 History %-3 % eye ointment Allergies Allergy/AdvReac Type Severity Reaction Status Date / Time diphenhydramine (From Allergy ADR-Seizure Verified 06/13/23 07:12 Benadryl) PFSH Acute 2 PFSH: Medical History Acute hyponatremia Hypothyroidism Panhypopituitarism Hyponatremia Perforated tympanic membrane Seizure disorder Cerebral palsy Surgical History Status post VNS (vagus nerve stimulator) placement ? S/P percutaneous endoscopic gastrostomy (PEG) tube placement Family History Other Diabetes Hyperlipidemia Social History Smoking and tobacco/nicotine status: never used tobacco/nicotine Alcohol intake: never Substance/Drug Use: never Caregiver/support person: Yes Lives independently: No Household members: other Housing: [facility] Vitals/I&O/Wt Last Vital Signs Temp 99.9 F H 09/29/24 17:32 Pulse 129 H 09/29/24 17:32 Resp 19 H 09/29/24 16:15 BP 100/78 09/29/24 17:32 Pulse Ox 95 09/29/24 17:32 O2 Del Method Room Air 09/29/24 17:32 09/29/24 09/29/24 09/29/24 06:59 14:59 22:59 Intake Total 1000 / 1000 Balance 1000 / 1000 Weight last 48 hrs Weight 81.647 kg Physical Exam 2 Const: COMMON NORMALS: no acute distress HENMT: OTHER: Left ear, difficult to observe tympanic membrane due to swelling of the external auditory canal Eye: COMMON NORMALS: Equal, round and reactive pupils present Neck/C-Spine: COMMON NORMALS: full ROM, no lymphadenopathy and no meningeal signs Resp: COMMON NORMALS: normal respiratory effort, No retractions, No use of accessory muscles and clear to auscultation bilaterally AUSCULTATION: clear to auscultation bilaterally Cardio: COMMON NORMALS: no JVD, regular rate, regular rhythm, S1 normal heart sound present and S2 normal heart sound present RATE: regular rate RHYTHM: regular rhythm HEART SOUNDS: S1 normal heart sound present and S2 normal heart sound present GI: COMMON NORMALS: Normal to inspection, nondistended, normoactive bowel sounds present, Soft to palpation and non-tender PALPATION: Yes No hepatosplenomegaly present Extremity: COMMON NORMALS: no pedal edema Sepsis: Is patient septic: No Focused sepsis exam performed: Yes Focused sepsis exam: DP PT pulses palpable, cap refill greater than 2 seconds, no mottling Date exam was performed: 09/29/24 Time exam was performed: 18:06 Data 09/29/24 13:56 09/29/24 13:56 Micro: Microbiology 09/29/24 16:46 Blood Culture - Preliminary Blood SPECIMEN COLLECTED 09/29/24 13:56 Blood Culture - Preliminary Blood SPECIMEN COLLECTED A&P Assessment and plan (1) Hyponatremia: (2) Tachycardia: (3) Acute encephalopathy: (4) Mastoiditis: Plan Acute encephalopathy - UA no evidence of UTI - Chest x-ray no focal pneumonia - She has cerebral palsy, nonverbal - Possible meningitis? Obtain CRP, Pro-Corwin, sed rate, blood cultures - For now start vancomycin - For now start on Rocephin - Started on Decadron - Monitor mentation closely CT of the head did show severe left mastoiditis - I could not see the left tympanic membrane due to swelling of external auditory canal - This certainly could be a source of her altered mental status? Leukocytosis? - Continue antibiotics as above - CT temporal bone Acute on chronic hyponatremia - Likely from seizure medications - However cannot rule out dehydration as she looks dehydrated -Start IV fluids Tachycardia, telemetry monitoring Continue painting feedings Sepsis features, Tachycardia, leukocytosis, encephalopathy Full code Lovenox for DVT prophylaxis PDMP PDMP Reviewed: Not Reviewed Attestations 2 Medical Necessity Statement*: Patient requires hospitalization, inpatient, greater than 2 midnights, for acute encephalopathy Diagnoses Hyponatremia E87.1 Tachycardia R00.0 Acute encephalopathy G93.40 Mastoiditis H70.90
[2024-09-29 17:53] LABS: Erythrocyte Sedimentation Rate 31 mm/hr (0-15)
--- NOTE | 2024-09-29 17:57 | CTR_ITS ---
PROCEDURE INFORMATION: Exam: CT Temporal Bones Without Contrast. Exam date and time: 09/29/2024 7:57 PM Age: 29 years old Clinical indication: Left sided mastoiditis noted on head CT. TECHNIQUE: Imaging protocol: Computed tomography of the temporal bones without contrast. Radiation optimization: All CT scans at this facility use at least one of these dose optimization techniques: automated exposure control; mA and/or kV adjustment per patient size (includes targeted exams where dose is matched to clinical indication); or iterative reconstruction. COMPARISON: CT head wo con* [id number] 09/29/2024 5:01 PM RADIATION DOSE METRICS: Total DLP (mGy-cm): 732.68 FINDINGS: Right inner ear: Normal. Right ossicles and middle ear: Normal. The middle ear ossicles are intact. Right external auditory canal: Normal. Right facial nerve canal: Normal. Right jugular foramen: No jugular dehiscence. Right carotid canal: No aberrant carotid canal. Right mastoid air cells: Mild opacification. Left inner ear: Normal. Left ossicles and middle ear: Extensive left middle ear diffuse soft tissue/fluid opacities as well. Left external auditory canal: Normal. Left facial nerve canal: Normal. Left jugular foramen: No jugular dehiscence. Left carotid canal: No aberrant carotid canal. Left mastoid air cells: Very severe diffuse left mastoid opacities. Paranasal sinuses: Severe bilateral ethmoid sinus disease. Elsewhere, at least [id number] sinus mucosal thickening. Bones/joints: No overt bone destruction. Soft tissues: Unremarkable. Other findings: The exam is motion limited. CT/CT temporal bone wo con* [id number] IMPRESSION: 1. Similar to the same-day head CT. The exam is motion limited. This will obscure subtle findings. 2. Very severe left mastoid disease with mastoiditis not excluded. Known per history. 3. Advanced left middle ear disease. No focal bone destruction is noted. No definite erosion of the scutum to strongly suggest cholesteatoma. 4. No tegmen defects are visualized. No evidence of pneumocephalus. 5. Up to severe sinus disease. 6. Follow with ENT.
[2024-09-29] MEDS: piperacillin-tazobactam 3.375 GM in sodium chloride 0.9% (plus) 50 ML IV (18:03)
[2024-09-29 18:12] LABS: NT Pro B Type Natriuretic Pept 465 pg/mL (0-125); Procalcitonin 0.04 ng/mL (0-0.5)
[2024-09-29 18:23] LABS: C Reactive Protein 74.7 mg/L (0.0-4.9)
[2024-09-29 21:05] LABS: Chol HDL Ratio 3.94 mg/dL (0.0-4.40); Cholesterol 189 mg/dL (0-200); HDL Cholesterol 48 mg/dL (60-100); LDL Cholesterol Calculated 115 mg/dL (50-129); Thyroid Stimulating Hormone 6.59 uIU/mL (0.27-4.20); Triglycerides 131 mg/dL (0-150)
[2024-09-29] MEDS: famotidine 20 mg Tablet PEG-TUBE (21:08)
[2024-09-29] MEDS: dexamethasone 10 mg/mL INJ IVP (21:08)
[2024-09-29] MEDS: enoxaparin 40 mg/0.4 mL Syringe SUBCUT (21:08)
[2024-09-29] MEDS: baclofen 10 mg Tablet 5 MG PEG-TUBE (21:08)
[2024-09-29] MEDS: levETIRAcetam 500 mg Tablet 1500 MG PEG-TUBE (21:09)
[2024-09-29] MEDS: acetaminophen 325 mg Tablet 650 MG PO (21:09)
[2024-09-29] MEDS: lamoTRIgine 100 mg Tablet 400 MG PEG-TUBE (21:09)
[2024-09-29] MEDS: nystatin powder 15 gm Btl TOPICAL (21:09)
[2024-09-29] MEDS: cefTRIAXone 2,000 mg SDV 2000 MG IVP (21:09)
[2024-09-29] MEDS: sennosides-docusate Tablet 1 TAB PO (21:09)
[2024-09-29] MEDS: sodium chloride 0.9% 1,000 ML 75 ML IV (21:11)
[2024-09-29] MEDS: vancomycin 2,000 MG/400 ML PIGGYBACK 200 MG IV (21:50)
[2024-09-29 22:20] LABS: Estmated Average Glucose 105; Hemoglobin A1C 5.3 % (4.0-6.0)
[2024-09-30] VITALS (27 sets, daily range): BP systolic 81–171; BP diastolic 56–133; PULSE 93–116; RESP 15–22; TEMP 37.2–38.7; O2SAT 85–100
[2024-09-30] MEDS: dexamethasone 10 mg/mL INJ IVP ×4 (01:38→21:05)
[2024-09-30 04:40] LABS: Alanine Aminotransferase 17 U/L (0-33); Albumin Level 4.2 g/dL (3.5-5.2); Alkaline Phosphatase 135 U/L (35-105); Blood Urea Nitrogen 4 mg/dL (6-20); Carbon Dioxide 20 mmol/L (22-29); Chloride 93 mmol/L (98-107); Creatinine Clr Calc Pharmacy 170.7075; Glomerular Filtration Rate 145.9 mL/min (90-130); Glucose 134 mg/dL (65-115); Magnesium 1.8 mg/dL (1.7-2.3); Osmolality Calculated 263 mOsm/kg (285-295); Phosphorus 3.3 mg/dL (2.5-4.5); Sodium 127 mmol/L (136-145); Total Bilirubin 0.3 mg/dL (0.15-1.2); Total Protein 7.2 g/dL (6.6-8.7)
[2024-09-30 04:41] LABS: Anion Gap 18.5 (5-19); Aspartate Amino Transferase 25 U/L (0-32); Potassium 4.5 mmol/L (3.5-5.1)
--- OUTSIDE RECORDS SUMMARY | 2024-09-30 05:18 | XMS_ITS | Encounter Summary ---
Author Organization [facility] Address [address] [place] [address] Care Team Providers Care Software Development Project Manager Name Role Phone Florence Leger APN Primary Care Provider [phone] Encounter Details Date Type Department Care Team (Late st Contact Info) Description 09/04/2024 External Device Data [facility] ABSTRACTION Provider, Abstract NO ADDRESS ON FILE Social History Tobacco Use Types Packs/Day Years Used Date Smoking Tobacco: Never Smokeless Tobacco: Never Alcohol Use Standard Drinks/Week Comments Not Currently 0 (1 standard drink = 0.6 oz pur e alcohol) Comments Unknown Sex and Gender Information Value Date Recorded Sex Assigned at Not on file Legal Sex Female 4:36 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
--- OUTSIDE RECORDS SUMMARY | 2024-09-30 05:18 | XMS_ITS ---
Author Organization [facility] are Care Team Providers Care Cleaner And Dyer Name Role Phone Chan Maddox Unavailable Unavailable Gilberto Laughlin Unavailable Unavailable Case Anderson Unavailable Unavailable Tapan Antonio Unavailable Unavailable Omar Renee Unavailable Unavailable Carrie Maddox Unavailable Unavailable Litzy Coles Unavailable Unavailable Kelvin Hamilton Unavailable Unavailable Allergies and adverse reactions Code CodeSystem Substance Reaction Severity StartDate Concern Status Benadryl Severe 11/01/2020 active Care Team Name Role Address Phone Organization Dates Gilberto Laughlin PCP [address] [place], [address], [place] (Office): [facility] 05/09/2022 - present Chan Maddox Attending Physician [address] [place], [address], [facility] (Office): : [facility] 05/09/2022 - present Case Anderson Attending Physician [address] [place], [address], [facility] (Office): [facility] 05/09/2022 - present Tapan Antonio Attending Physician [address] [place], [address], [facility] (Office): [facility] 05/09/2022 - present Omar Renee Attending Physician [address] [place], [place], [id number] [place] [address] (Office): : [facility] 05/09/2022 - present Carrie Maddox Attending Physician [address] [place], [address], [facility] (Office): : [facility] 05/09/2022 - present Litzy Coles Attending Physician [address] [place], [address], [facility] (Office): [facility] 05/09/2022 - present Kelvin Hamilton Attending Physician [address] [place], [address], [facility] (Office): [facility] 05/09/2022 - present Goals Section Description Status Target Date CPR will be initiated if Jayesh james experiences cardiac or respiratory arrest. Active 10/07/2024 Enhanced Barrier Precautions will be utilized pe r protocol daily Active 10/07/2024 N/A Active 10/07/2024 N/A Active 10/07/2024 Resident Will Be Free of Falls Active 0 10/07/2024 Resident Will Be Free of Medication Side Effects Active 10/07/2024 Resident Will Be Prescribed the Minimum Amount of Medications Necessary Active 10/07/2024 Resident Will Remain Hydrated Active Resident Will Show No Signs / Symptoms of Infect ion Active 10/07/2024 Resident will not have adver se effects r/t usage of medications with Black Box Warnings. Active 10/07/2024 Resident's Skin Will Remain Intact Active 10/07/2024 Jayesh will remain COVID-19 free throughout next re view period. Active 10/07/2024 Jayesh will remain free of falls throughout the rev iew period. Active 10/07/2024 Jennyfer will be seizure free for the next 90 da ys. Active 10/07/2024 Jennyfer will have ADL's com pleted and have good hygiene and have all ADL's completed as are needed. Active 10/07/2024 Jennyfer will receive adequate nutrition to main tain weight. Active 10/07/2024 Jennyfer will receive adequa te nutrition without side effects associated with tube feedings (aspiration, diarrhea, dehydration). Active 10/07/2024 Jennyfer will remain free of skin breakdown over the next 90 days. Active 10/07/2024 The resident will be able to function at the fullest potential possible as outlined by the treatment team. Active 10/07/2024 The resident/Family/caregive r will be able to verbalize an understanding of the condition and the importance of compliance with the treatment program. Active 10/07/2024 Functional Status Code Name Recorded Time Value Entered By Ambulation 09/29/2024 Not assessed kbaldridge Ambulation 09/29/2024 Not assessed kbaldridge Ambulation 09/29/2024 Not assessed kbaldridge Ambulation 09/29/2024 Not assessed kbaldridge Bathing 09/25/2024 Total Dependence - Dressing 09/29/2024 Total Dependence kbaldridge Feeding or Eating 09/29/2024 Not assessed kbaldridge Toileting 09/29/2024 Not assessed kbaldridge Transferring 09/29/2024 Not assessed kbaldridge Immunizations Immunization Status Vaccine Details Vaccine Code CodeSystem Date Notes Influenza completed Influenza, high-dose, split virus, quadrivalent, injectable, preservative free lotNumber: [id number] expiry: 11/04/2023 Mfg: Afluria Quadrivalent Given 0.5 ml Right Deltoid intramuscularly 197 CVX created date: 04/05/2023 consent date: 04/05/2023 administer ed date: 04/05/2023 Influenza completed Influenza, high-dose, split virus, quadrivalent, injectable, preservative free lotNumber: [id number] expiry: 11/04/2021 Mfg: Afluria Given 0.5 ml Left Deltoid intramuscularly 197 CVX created date: 06/19/2021 administer ed date: 03/27/2021 Diphtheria completed tetanus toxoid, reduced diphtheria toxoid, and acellular pertussis vaccine, adsorbed lotNumber: [id number] expiry: 07/08/2022 Given 0.5 ml Right Deltoid intramuscularly 115 CVX created date: 06/18/2022 consent date: 06/18/2022 administer ed date: 06/14/2022 SARS-COV-2 (COVID-19) completed SARS-COV-2 (COVID-19) vaccine, mRNA, spike protein, LNP, preservative free, 10 mcg/0.2mL dose, perfecto-sucrose formulation lotNumber: [id number] expiry: 06/03/2021 Mfg: Moderna Given 0.5 ml Left Deltoid intramuscularly Step 2 of Multi-step with next step required 218 CVX created date: 08/19/2021 consent date: 08/19/2021 administer ed date: 01/23/2021 SARS-COV-2 (COVID-19) completed SARS-COV-2 (COVID-19) vaccine, mRNA, spike protein, LNP, preservative free, 100 mcg/0.5mL dose or 50 mcg/0.25mL dose lotNumber: [id number] Mfg: Moderna Given 0.5 ml intramuscularly Step 1 of Multi-step with next step required 207 CVX created date: 06/19/2021 administer ed date: 12/19/2020 SARS - COV2 (Moderna) Booster completed SARS-COV-2 (COVID-19) vaccine, mRNA, spike protein, LNP, preservative free, 100 mcg/0.5mL dose or 50 mcg/0.25mL dose lotNumber: [id number] expiry: 09/18/2023 Mfg: Spikevax Given 0.5 ml Right Deltoid intramuscularly 207 CVX created date: 07/08/2023 consent date: 07/08/2023 administer ed date: 07/08/2023 Moderna Bivalent completed SARS-COV-2 (COVID-19) vaccine, mRNA, spike protein, LNP, bivalent, preservative free, 50 mcg/0.5 mL or 25 mcg/0.25 mL dose lotNumber: [id number] expiry: 07/08/2022 Given 0.5 ml Right Deltoid intramuscularly 229 CVX created date: 06/18/2022 consent date: 06/18/2022 administer ed date: 06/14/2022 Influenza, seasonal, injectable completed Influenza, split virus, trivalent, injectable, contains preservative lotNumber: [id number] expiry: 12/03/2024 Mfg: Soicos Given 0.5 ml Left Deltoid intramuscularly 141 CVX created date: 03/21/2024 consent date: 03/21/2024 administer ed date: 03/21/2024 Educated by michael on 03/21/2024 Medications Section Medication Name Status Code CodeSystem Dose Route Frequency Admin Type Sig Text Start Date End Date BISACODYL SUP 10MG active 227380 RXNORM 1 suppos itory Rectal as needed PRN INSERT 1 SUPPOS ITORY RECTAL LY ONE TIME DAILY NEEDED (Indic ations for Use: Consti pation ) 2021 - ACETAMINOPHE TAB 325MG active 211558 RXNORM 2 tablet Oral as needed PRN GIVE TWO TABLET S (650MG ) PER TUBE EVERY FOUR HOURS NEEDED FOR PAIN OR FEVER( Indica tions for Use: Elevat ed Temper ature) 2021 - ENEMA READY- CALEB -TO-USE active 046799 RXNORM 1 applic atorfu l Rectal as needed PRN USE 1 RECTAL LY ONE TIME DAILY NEEDED (Indic ations for Use: Consti pation ) 2021 - PHENobarbital Tablet 30 MG active 317160 RXNORM 2 tablet Oral two times a day Routine Give 2 tablet via PEG-Tu be two times a day 2021 - Rufinamide Tablet active 3.5 tablet Oral two times a day Routine Give 3.5 tablet via PEG-Tu be two times a day for give 3.5tab s to equal 1400mg BID 2021 - Famotidine Tablet 20 MG active 901222 RXNORM 1 tablet Oral two times a day Routine Give 1 tablet via PEG-Tu be two times a day relate d to GASTRO -ESOPH AGEAL REFLUX DISEAS E WITHOU T ESOPHA GITIS (K21.9 ) 2021 - Biofreeze Liquid active n/a n/a Topical three times a day Routine Apply to left should er topica lly three times a day relate d to CEREBR AL PALSY, UNSPEC IFIED (G80.9 ) 2021 - Milk of Magnesia Suspension 400 MG/5ML active 337248 RXNORM 30 ml Oral as needed PRN Give 30 ml via G-Tube every 24 hours as needed for consti pation 2021 - Stool Softener Laxative Tablet 8.6-50 MG active 719589 RXNORM 1 tablet Oral two times a day Routine Give 1 tablet via NJ-Tub e two times a day for consti pation May hold for loose stools 2022 - LACTULOSE LOUIE 10GM/15 active 471573 RXNORM 10 gram Oral one time a day Routine Give 10 gram via PEG-Tu be one time a day for consti pation May hold for loose stools 2022 - levETIRAcetam Tablet 750 MG active 379710 RXNORM 2 tablet Oral two times a day Routine Give 2 tablet via PEG-Tu be two times a day for EPILEP SY 2022 - lamoTRIgine Tablet active 2 tablet Oral two times a day Routine Give 2 tablet via PEG-Tu be two times a day for EPILEP SY 2022 - GenTeal Tears Night-Time Ointment active 1 applic ation Ophthal armida at bedtime Routine Instil l 1 applic ation in both eyes at bedtim e for DRY EYE 2022 - Hydrocodone-A cetaminophen Tablet 10-325 MG active 343720 RXNORM 1 tablet Oral two times a day Routine Give 1 tablet via G-Tube two times a day for Pain 2022 - Levothyroxine Sodium Oral Tablet 50 MCG active 413196 RXNORM 1 tablet Oral one time a day Routine Give 1 tablet via G-Tube one time a day for HYPOTH YROIDI SM, UNSPEC IFIED (E03.9 ) 2023 - Nystatin Cream 869002 UNIT/GM active 204863 RXNORM n/a n/a Topical as needed PRN Apply to Neck Folds topica lly as needed for rednes s/rash ing 2023 - Baclofen Oral Tablet 5 MG aborted 548790 RXNORM 1 tablet Oral three times a day Routine Give 1 tablet via J-Tube three times a day for muscle spasms 09/05 Baclofen Oral Tablet 5 MG active 964649 RXNORM 1 tablet Oral two times a day Routine Give 1 tablet via J-Tube two times a day for muscle spasms 2024 - Mental Status Section Date Assessment Total Score Description 07/10/2024 CAM 0 No delirium ind icated 04/18/2024 CAM 1 Delirium indica vipul Problems Problem # Description Date of onset Resolved Date Code CodeSystem Concern Status 1 HERPESVIRAL VESICULAR DERMATITIS [address] active 2 COUGH, UNSPECIFIED [address] active 3 ACUTE BRONCHITIS, UNSPECIFIED 024 10/05/[address] completed 4 RESPIRATORY SYNCYTIAL VIRUS PNEUMONIA 024 10/05/[address] completed 5 SHORTNESS OF BREATH [address] active 6 COVID-19 023 08/22/[address] completed 7 ABRASION OF NOSE, SUBSEQUENT ENCOUNTER 023 01/04/[address] completed 8 CANDIDIASIS, UNSPECIFIED 023 10/28/[address] completed 9 COUGH, UNSPECIFIED 023 10/04/[address] completed 10 WHEEZING 023 10/04/[address] completed 11 ENCOUNTER FOR SURGICAL AFTERCARE FOLLOWING SURGERY ON THE TEETH OR ORAL CAVITY 023 07/19/[address] completed 12 CANDIDIASIS OF SKIN AND NAIL 022 07/07/[address] completed 13 ERYTHEMA INTERTRIGO 022 01/04/[address] completed 14 HYPO-OSMOLALITY AND HYPONATREMIA 022 06/06/[address] completed 15 METABOLIC ENCEPHALOPATHY 022 07/07/[address] completed 16 PNEUMONIA, UNSPECIFIED ORGANISM 022 05/06/[address] completed 17 ABSCESS OF LUNG WITH PNEUMONIA 07/07/[address] completed 18 ACUTE COUGH 07/07/[address] completed 19 INFLUENZA DUE TO OTHER IDENTIFIED INFLUENZA VIRUS WITH OTHER RESPIRATORY MANIFESTATIONS 05/06/[address] completed 20 OTHER VIRAL INFECTIONS OF UNSPECIFIED SITE 04/28/[address] completed 21 CANDIDIASIS OF SKIN AND NAIL 04/20/[address] completed 22 WHEEZING 022 04/06/[address] completed 23 DISRUPTION OF WOUND, UNSPECIFIED, INITIAL ENCOUNTER 10/04/[address] completed 24 DRY EYE SYNDROME OF BILATERAL LACRIMAL GLANDS 54053971 SNOMED CT active 25 ALTERED MENTAL STATUS, UNSPECIFIED 04/06/[address] completed 26 ANEMIA IN OTHER CHRONIC DISEASES CLASSIFIED ELSEWHERE 813215490 SNOMED CT active 27 ANXIETY DISORDER, UNSPECIFIED 943937707 SNOMED CT active 28 CEREBRAL PALSY, UNSPECIFIED 153237850 SNOMED CT active 29 COGNITIVE COMMUNICATION DEFICIT 04/06/[address] completed 30 CONSTIPATION, UNSPECIFIED 98842668 SNOMED CT active 31 DYSPHAGIA, UNSPECIFIED [address] active 32 ENCOUNTER FOR IMMUNIZATION 022 04/28/[address] completed 33 EPILEPSY, UNSPECIFIED, NOT INTRACTABLE, WITHOUT STATUS EPILEPTICUS 74705520 SNOMED CT active 34 FUNCTIONAL QUADRIPLEGIA 880120143279445 SNOMED CT active 35 GASTROSTOMY STATUS 402562601 SNOMED CT active 36 HYPO-OSMOLALITY AND HYPONATREMIA 022 04/06/[address] completed [address] active 38 HYPOTENSION, UNSPECIFIED [address] active 39 HYPOTHYROIDISM, UNSPECIFIED [address] active 40 MIXED RECEPTIVE-EXPRESSI VE LANGUAGE DISORDER [address] active 41 MUSCLE WEAKNESS (GENERALIZED) 022 10/04/[address] completed 42 NEUTROPENIA, UNSPECIFIED 022 10/04/[address] completed 43 OTHER SPECIFIED COUGH 022 04/20/[address] completed 44 PAIN, UNSPECIFIED [address] active 45 PRESENCE OF NEUROSTIMULATOR [address] active 46 QUADRIPLEGIA, UNSPECIFIED 022 04/06/[address] completed 47 UNSPECIFIED PERFORATION OF TYMPANIC MEMBRANE, UNSPECIFIED EAR 022 04/06/[address] completed 48 ANEMIA IN OTHER CHRONIC DISEASES CLASSIFIED ELSEWHERE [address] active 49 FUNCTIONAL QUADRIPLEGIA [address] active 50 QUADRIPLEGIA, UNSPECIFIED [address] active 51 ANXIETY DISORDER, UNSPECIFIED [address] active 52 PERSONAL HISTORY OF TRAUMATIC BRAIN INJURY [address] active 53 EXPRESSIVE LANGUAGE DISORDER [address] active 54 MIXED RECEPTIVE-EXPRESSI VE LANGUAGE DISORDER [address] active 55 COUGH [address] active 56 DYSPHAGIA, UNSPECIFIED [address] active 57 ALTERED MENTAL STATUS, UNSPECIFIED [address] active 58 CEREBRAL PALSY, UNSPECIFIED [address] active 59 COGNITIVE COMMUNICATION DEFICIT [address] active 60 EPILEPSY, UNSPECIFIED, NOT INTRACTABLE, WITHOUT STATUS EPILEPTICUS [address] active 61 GASTROSTOMY STATUS [address] active 62 HYPO-OSMOLALITY AND HYPONATREMIA [address] active 63 HYPOPITUITARISM [address] active 64 HYPOTENSION, UNSPECIFIED [address] active 65 HYPOTHYROIDISM, UNSPECIFIED [address] active 66 MUSCLE WEAKNESS (GENERALIZED) [address] active 67 NEUTROPENIA, UNSPECIFIED [address] active 68 PRESENCE OF NEUROSTIMULATOR [address] active 69 UNSPECIFIED PERFORATION OF TYMPANIC MEMBRANE, UNSPECIFIED EAR [address] active 70 CONSTIPATION, UNSPECIFIED [address] active 71 ENCOUNTER FOR IMMUNIZATION [address] active 72 GASTRO-ESOPHAGEAL REFLUX DISEASE WITHOUT ESOPHAGITIS 021 04/28/[address] completed 73 PAIN, UNSPECIFIED [address] active Reason for Referral No Reasons for Referral Entered Social History Social History Observation Description Start Date End Date Code Code System Current Smoking Status Tobacco smoking consumption unknown 331255894 SNOMED CT Sex Assigned At Female 1995 02145-5 [facility] Vital Signs Code Code System Vitals Name Values and Units Timing Information 23068-3 [facility] Pain Level Value=3.0 09/29/2024 9279-1 [facility] Respiratory Rate Value=20.0 Units=/m in 09/28/2024 8462-4 [facility] Blood Pressure-Diastolic Value=72 Un its=mmHg 09/28/2024 8480-6 [facility] Blood Pressure-Systolic Yoqkl=209 Un its=mmHg 09/28/2024 8310-5 [facility] Body Temperature Value=98.6 Units=?? F 09/28/2024 8867-4 [facility] Heart rate Value=64.0 Units=/min 38545-3 [facility] O2 % BldC Oximetry Value=97.0 Units= % 09/28/2024 71603-3 [facility] Weight Hywht=264.0 Units=Lbs 09/2024 8302-2 [facility] Height Value=65.0 Units=Inches 06/23/2022
--- OUTSIDE RECORDS SUMMARY | 2024-09-30 05:18 | XMS_ITS | Clinical Summary ---
Author Organization [facility] [place] Address [address] [place] [address] Phone Care Team Providers Care Landing Gear Mechanic Name Role Phone Florence Leger ACRLOS Primary Care Provider [phone] Allergies Active Allergy Reactions Criticality Noted Date Comments Adhesive Tape-Silicones Rash Low 09/24/2016 Diphenhydramine Seizure High 10/17/2017 Medications HYDROcodone-acet aminophen (NORCO) 5-325 mg tabletIndication s:Partial symptomatic epilepsy with complex partial seizures, intractable, without status epilepticus (CMS/HCC) Take 1 Tablet by mouth every 6 hours as needed for Pain. 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 360 Tablet 3 07/15/2020 Active HYDROcodone-acet aminophen (HYCET) 7.5-325 mg/15 mL SolutionIndicati ons:Partial symptomatic epilepsy with complex partial seizures, intractable, without status epilepticus (CMS/HCC) Take 10 mL by mouth every 6 hours as needed for Pain. Max Daily Amount: 40 mL 100 mL 0 03/04/2020 Active levETIRAcetam (KEPPRA) 750 mg Tablet 2 Tablets (1,500 mg) by PEG Tube route 2 times daily. 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 Take Three and one half tablets BID 240 Tablet 6 04/07/2020 Active levETIRAcetam (KEPPRA) 750 mg Tablet 2 Tablets (1,500 mg) by PEG Tube route 2 times daily. 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 10/16/2019 Active FENOFIBRATE ORAL Take by mouth. Liquid 15 ml BID 05/08/2019 Active lamoTRIgine (LaMICtal) 200 mg tablet Take 400 mg by mouth 2 times daily. 05/08/2019 Active potassium CHLORIDE (KAYCIEL) 20 mEq/15 mL solution daily. Take 7.5 qid 05/08/2019 Active hydrocortisone (CORTEF) 5 mg Tablet Take by mouth. Take 10 mg in am 7.5 mg in pm. Note : Double dose when illness and sressed 05/08/2019 Active clonazePAM (KlonoPIN) 1 mg tablet Take 1 mg by mouth 3 times daily. 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 Overview (10/03/2020): Last Assessment & Plan: Problem Status: stable and well controlled Problem Management Strategy: Continue current approach, no changes Problem Follow-up Plan of Care: Routine follow-up 6 months Problem Goals: Take medications as prescribed Labs stable Component Latest Ref Rng & Units 06/30/2017 Insulin-Like GF1 105 - 337 ng/mL 313 IGF-1 Z Score Calculation 1.3 T4, Free 0.58 - 1.64 ng/dL 1.04 ACTH 6 - 58 pg/mL 5 (L) Estradiol pg/mL <20 Exposure keratopathy, left 12/28/2016 Encounters Date Type Department Care Team Description 09/04/2024 External Device Data [facility] ABSTRACTION Provider, Abstract 09/04/2024 External Device Data [facility]STRACTION Provider, Abstract 08/13/2024 External Device Data [facility]CTION Provider, Abstract 08/11/2024 External Device Data [facility] Provider, Abstract 08/10/2024 External Device Data [facility]STRACTION Provider, Abstract 08/08/2024 2:49 PM AWAKE OVERNIGHT MONITOR - 08/08/2024 11:59 PM AWAKE OVERNIGHT MONITOR Hospital Encounter [facility] [place] [address] [place] [address] Jania Calvo, SOURAV Arnol, Glenn Miller MD Discharge Disposition: Home or Self Care from Last 3 Months Immunizations Immunization Administration Dates Next Due (M-M-R II/PRIORIX)(12 MO UP) MEASLES, MUMPS AND RUBELLA VIRUS VACCINE, 0.5 ML IM/SUBCUT 07/08/1999,05/15/1996 Dt Dtp Dtap Vaccine 07/08/1999, 7,1995,1995,1995 HIB, Unspecified Formulation 01/22/1997, 1995,1995,1995 Hepatitis B Vaccine 1995,1995,1995 IPV/OPV 07/24/1996, 6,1995,1995 Family History Medical History Relation Name Comments No Known Problems Father No Known Problems Mother Relation Name Status Comments Father Other grandmother uns ure Mother Other grandmother uns ure Social History Tobacco Use Types Packs/Day Years Used Date Smoking Tobacco: Never Smokeless Tobacco: Never Alcohol Use Standard Drinks/Week Comments Not Currently 0 (1 standard drink = 0.6 oz pur e alcohol) Comments Unknown Sex and Gender Information Value Date Recorded Sex Assigned at Not on file Legal Sex Female 4:36 PM AWAKE OVERNIGHT MONITOR Gender Identity Not on file Sexual Orientation Not on file Last Filed Vital Signs Vital Sign Reading Time Taken Comments Blood Pressure 97/55 08/04/2022 10:55 AM AWAKE OVERNIGHT MONITOR Pulse 82 07/15/2020 2:29 PM AWAKE OVERNIGHT MONITOR Temperature 36.9 ??C (98.4 ??F) 08/08/2024 3:01 PM CS T Respiratory Rate 18 08/08/2024 3:01 PM AWAKE OVERNIGHT MONITOR Oxygen Saturation - - Inhaled Oxygen Concentration - - Weight 73.5 kg (162 lb) 08/08/2024 3:01 PM AWAKE OVERNIGHT MONITOR Height 165.1 cm (5' 5 ) 08/08/2024 3:01 PM AWAKE OVERNIGHT MONITOR Body Mass Index 26.96 08/08/2024 3:01 PM AWAKE OVERNIGHT MONITOR Plan of Treatment Health Maintenance Due Date Last Done Comments DTAP/TDAP/TD VACCINES (6 - Tdap) 2006 07/08/1999, 07/24/1996, 1995, Additional history exists CERVICAL CANCER SCREENING 2016 HPV/Cotest (21-29) 2016 PAP SMEAR 2016 INFLUENZA VACCINE (#1) 2024 COVID-19 Vaccine ( season) 2024 06/14/2022, 01/23/2021, 12/19/2020 HEPATITIS B VACCINES Completed 1995, 1995, 1995, Additional history exists HPV VACCINES Aged Out No longer eligi ble based on patient's age to complete this topic Medical Devices Implanted Type Area Consulting Marine Engineer Device Identifier Shelf Expiration Date Model / Serial / Lot Generator Vns Demipulse 103 - [id number] Implanted:Qty : 1 on 03/04/2020 by Ania Carrasco MD Neuro Stimulator Left: Chest [facility] 12/11/2020 103 / [id number] / Neuro Neuro Description:generatro VNS Explanted Type Area Consulting Marine Engineer Device Identifier Shelf Expiration Date Model / Serial / Lot Generator Vns Aspire 105 - [id number] Implanted:Ania Ramirez MD (Quantity not on file) Explanted:Qty : 1 on 03/04/2020 by Ania Carrasco MD Neuro Stimulator Left: Chest [facility] 105 / [id number] / Insurance MEDICAID [facility] [facility] DUAL COMPLETE PPO DSNP [facility] [id number] [place] [address] Care Teams Landing Gear Mechanic Relationship Specialty Start Date End Date Florence Leger APN [address] [place] [phone] PCP - General Nurse Practitioner Family 10/16/19
--- OUTSIDE RECORDS SUMMARY | 2024-09-30 05:18 | XMS_ITS | Encounter Summary ---
Author Organization [facility] Address 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
--- OUTSIDE RECORDS SUMMARY | 2024-09-30 05:18 | XMS_ITS | Clinical Summary ---
Author Organization [facility] Address [address] [place] [address] Phone Care Team Providers Care Register Of Deeds Name Role Phone Florence Leger CARLOS Primary Care Provider [phone] [phone] Allergies Active Allergy Reactions Criticality Noted Date Comments Adhesive Tape-Silicones Rash Low 09/24/2016 Diphenhydramine Seizure High 10/17/2017 Medications hydrocortisone (CORTEF) 5 mg Tablet Take by mouth. Take 10 mg in am 7.5 mg in pm. Note : Double dose when illness and sressed Active clonazePAM (KlonoPIN) 1 mg tablet Take 1 mg by mouth 3 times daily. Active FENOFIBRATE ORAL Take by mouth. Liquid 15 ml BID Active lamoTRIgine (LaMICtal) 200 mg tablet Take 400 mg by mouth 2 times daily. Active potassium CHLORIDE (KAYCIEL) 20 mEq/15 mL solution daily. 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 Active HYDROcodone-acet aminophen ([place]) 5-325 mg tabletIndication s:Partial symptomatic epilepsy with complex partial seizures, intractable, without status epilepticus (CMS/HCC) Take 1 Tablet by mouth every 6 hours as needed for Pain. Max Daily Amount: 4 Tablets 20 Tablet 03/04/2020 Active HYDROcodone-acet aminophen (HYCET) 7.5-325 mg/15 mL SolutionIndicati ons:Partial symptomatic epilepsy with complex partial seizures, intractable, without status epilepticus (CMS/HCC) Take 10 mL by mouth every 6 hours as needed for Pain. 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 360 Tablet 3 07/15/2020 Active levETIRAcetam (Keppra) 750 mg Tablet 2 Tablets (1,500 mg) by PEG Tube route 2 times daily. 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97 03/04/2020 8:45 AM CDT Plan of Treatment Health Maintenance Due Date Last Done Comments DTAP/TDAP/TD VACCINES (6 - Tdap) 2006 07/08/1999, 07/24/1996, 1995, Additional history exists CERVICAL CANCER SCREENING 2016 HPV/Cotest (21-29) 2016 PAP SMEAR 2016 INFLUENZA VACCINE (#1) 2024 HEPATITIS B VACCINES Completed 1995, 1995, 1995 HPV VACCINES Aged Out No longer eligi ble based on patient's age to complete this topic Medical Devices Implanted Type Area Assembler Motor Vehicle Device Identifier Shelf Expiration Date Model / Serial / Lot Generator Vns Demipulse 103 - [id number] Implanted:Qty: 1 on 03/04/2020 by Ania Carrasco MD at [facility] Neuro Stimulator Left: Chest [employer] 12/11/2020 103 / [id number] / Neuro Neuro Description:generatro VNS Explanted Type Area Assembler Motor Vehicle Device Identifier Shelf Expiration Date Model / Serial / Lot Generator Vns Aspire 105 - [id number] Implanted:Ania Bowman MD (Quantity not on file) Explanted:Qty: 1 on 03/04/2020 by Ania Carrasco MD at [facility] Neuro Stimulator Left: Chest [employer] [facility] 105 / [id number] / Insurance MEDICAID [place] [employer] [facility] PPO D-SNP Advance Directives For more information, please contact: [phone] * Full Code (Latest Code Status on File) Date Activated Date Inactivated Comments 03/04/2020 11:45 AM 03/04/2020 7:28 PM * Full Code Date Activated Date Inactivated Comments 03/04/2020 11:22 AM 03/04/2020 11:44 AM Care Teams Register Of Deeds Relationship Specialty Start Date End Date Florence Leger APN [address] [place] [facility] [place] [address] PCP - General Nurse Practitioner Family 10/16/19
--- OUTSIDE RECORDS SUMMARY | 2024-09-30 05:18 | XMS_ITS | Encounter Summary ---
Author Organization [facility] Address [address] [place] [address] Care Team Providers Care Senior Accounting Clerk Name Role Phone Florence Leger APN Primary Care Provider [phone] Encounter Details Date Type Department Care Team (Latest Contact Info) Description 09/27/2000 Outpatient Historical [facility] 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
[2024-09-30] MEDS: levothyroxine 50 mcg Tablet PEG-TUBE (05:29)
[2024-09-30 05:39] LABS: Basophils # 0.1 10^3/uL (0.0-0.1); Basophils % 0.4 %; Eosinophils % 0.1 %; Lymphocytes # 1.3 10^3/uL (0.8-4.8); Mean Corpuscular HGB Conc 32.1 g/dL (30-55); Mean Corpuscular Hemoglobin 30.2 pg (27-33); Mean Corpuscular Volume 94.2 fl (85-98); Mean Platelet Volume 12.4 fL (7.4-10.4); Monocytes # 0.8 10^3/uL (0.2-0.9); Monocytes % 4.8 %; Neutrophils # 13.63 10^3/uL (1.8-7.7); Neutrophils % 86.1 %; Nucleated Red Blood Cells % 0 %; Platelet Count 205 10^3/cmm (157-399); Red Blood Count 3.08 10^6/uL (3.85-5.65); Red Cell Distribution Width 13.2 % (12.1-15.1); White Blood Count 15.82 10^3/uL (3.29-11.43)
[2024-09-30 06:03] LABS: Slide Review Slide Review Perform
[2024-09-30] MEDS: lamoTRIgine 100 mg Tablet 400 MG PEG-TUBE ×2 (09:58→21:03)
[2024-09-30] MEDS: lactulose oral liq 20 gm/30 mL UDC 10 GM PEG-TUBE (09:59)
[2024-09-30] MEDS: levETIRAcetam 500 mg Tablet 1500 MG PEG-TUBE ×2 (09:59→21:04)
[2024-09-30] MEDS: sennosides-docusate Tablet 1 TAB PO ×2 (09:59→21:04)
[2024-09-30] MEDS: PHENobarbital 32.4 mg Tablet 64.8 MG PEG-TUBE ×2 (10:00→21:04)
[2024-09-30] MEDS: famotidine 20 mg Tablet PEG-TUBE ×2 (10:00→21:04)
[2024-09-30] MEDS: baclofen 10 mg Tablet 5 MG PEG-TUBE ×2 (10:00→17:59)
[2024-09-30] MEDS: cefepime 2,000 mg SDV 2000 MG IVP ×3 (10:01→23:34)
[2024-09-30] MEDS: vancomycin 1,250 MG/250 ML PIGGYBACK 250 MG IV (10:07)
[2024-09-30] MEDS: nystatin cream 30 gm TOPICAL ×2 (10:08→18:18)
[2024-09-30] MEDS: ciprofloxacin-dexameth Otic Susp 7.5 mL Btl 4 DROP EAR-LEFT ×2 (10:08→18:18)
[2024-09-30] MEDS: metroNIDAZOLE IV 500 MG/100 ML PREMIX 100 MG IV ×3 (10:09→23:34)
[2024-09-30 10:24] LABS: Lactic Sepsis W/Reflex 1.8 mmol/L (0.5-2.2)
[2024-09-30] MEDS: nystatin powder 15 gm Btl TOPICAL ×2 (10:37→18:18)
[2024-09-30] MEDS: acetaminophen 325 mg Tablet 650 MG PO (13:12)
--- NOTE | 2024-09-30 14:51 | P.PN_ITS ---
Subjective 2 Subjective: Patient was seen this morning, she is much more alert and responsive this morning When I did a left otoscopic examination, she does moan in pain, on palpation of left temporal bone, she is exquisitely tender, she pulls away Left otoscopic examination, cannot observe tympanic membrane due to the external auditory canal being swollen - She was febrile overnight - I spoke to patient's sister, who is [facility]'s [facility] power of ship surveyor - Discussed that I think that her fevers , are likely from left otitis media, otitis externa, and evidence of left mastoiditis - Will continue IV antibiotics, there is CT of the temporal bone, does show diffuse left mastoid opacities, will discuss case with Dr. Sampson, ENT - Plan to continue to monitor closely - Discussed the possible meningitis I th ink it is fairly unlikely as she has no nuchal rigidity, but we will continue to monitor and she is on broad-spectrum biotic therapy Vitals/I&O/Wt Last Vital Signs Temp 101.6 F H 09/30/24 13:00 Pulse 116 H 09/30/24 13:00 Resp 22 H 09/30/24 13:00 BP 116/71 09/30/24 13:00 Pulse Ox 95 09/30/24 13:00 O2 Del Method Room Air 09/30/24 13:00 09/29/24 09/30/24 09/30/24 22:59 06:59 14:59 Intake Total 1050 / 1050 577 / 1627 873.75 / 873.75 Balance 1050 / 1050 577 / 1627 873.75 / 873.75 Weight last 48 hrs Weight 77.337 kg Weight 77.337 kg Weight 81.647 kg Physical Exam 2 Const: COMMON NORMALS: no acute distress and patient oriented x3 Resp: COMMON NORMALS: normal respiratory effort, No retractions, No use of accessory muscles and clear to auscultation bilaterally AUSCULTATION: clear to auscultation bilaterally Cardio: COMMON NORMALS: regular rate, regular rhythm, S1 normal heart sound present and S2 normal heart sound present RATE: regular rate RHYTHM: r egular rhythm HEART SOUNDS: S1 normal heart sound present and S2 normal heart sound present GI: COMMON NORMALS: Normal to inspection, nondistended, normoactive bowel sounds present and non-tender Extremity: COMMON NORMALS: no pedal edema Neuro: COMMON NORMALS: patient oriented x3 Psych: COMMON NORMALS: mental status grossly normal Data 09/30/24 05:06 09/30/24 03:12 Micro: Microbiology 09/29/24 16:46 Blood Culture - Preliminary Blood SPECIMEN COLLECTED 09/29/24 13:56 Blood Culture - Preliminary Blood SPECIMEN COLLECTED A&P Assessment and plan (1) Hyponatremia: (2) Tachycardia: (3) Acute encephalopathy: (4) Mastoiditis: Plan Acute encephalopathy - UA no evidence of UTI - Chest x-ray no focal pneumonia - She has cerebral palsy, nonverbal - Possible meningitis? Obtain CRP 74.7, Pro-Corwin 0.04, sed rate 31, -blood cultures - For now continue vancomycin - For now expand coverage to cefepime, and Flagyl - Started on Decadron - Monitor mentation closely CT of the head did show severe left mastoiditis -With acute otitis media, acute otitis externa -On examination today she is much more tender in the left mastoid, endorsing left otoscopic examination - I could not see the left tympanic membrane due to swelling of external auditory canal - This certainly could be a source of her altered mental status? Leukocytosis? - Continue antibiotics as above - CT temporal bone CT/CT temporal bone wo con* [id number] IMPRESSION: 1. Similar to the same-day head CT. The exam is motion limited. This will obscure subtle findings. 2. Very severe left mastoid disease with mastoiditis not excluded. Known per history. 3. Advanced left middle ear disease. No focal bone destruction is noted. No definite erosion of the scutum to strongly suggest cholesteatoma. 4. No tegmen defects are visualized. No evidence of pneumocephalus. 5. Up to severe sinus disease. 6. Follow with ENT. - Will discuss with ENT Acute on chronic hyponatremia, monitor - Likely from seizure medications - However cannot rule out dehydration as she looks dehydrated -Start IV fluids Tachycardia, telemetry monitoring Continue PEG tube feedings, Sepsis features, Tachycardia, leukocytosis, encephalopathy Full code Lovenox for DVT prophylaxis PDMP PDMP Reviewed: Not Reviewed Attestations 2 Medical Necessity Statement*: Patient requires hospitalization for acute encephalopathy, left mastoiditis, acute on chronic hyponatremia Diagnoses Hyponatremia E87.1 Tachycardia R00.0 Acute encephalopathy G93.40 Mastoiditis H70.90
--- NOTE | 2024-09-30 15:15 | PHA.VACGOAL ---
Vancomycin Goal - Goal Vancomycin Goal:: 15-20 mg/L Vancomycin Indication:: Other - Therapy Current therapy:: Cefepime Day of therpy:: Day []of [] . Actual body weight (kg): 170 lb 8 oz - Data Labs: WBC 15.82 10^3/uL (3.29-11.43) H 09/30/24 05:06 RBC 3.08 10^6/uL (3.85-5.65) L 09/30/24 05:06 Hgb 9.30 g/dL (11.27-16.99) L 09/30/24 05:06 Hct 29.0 % (36-47) L 09/30/24 05:06 MCV 94.2 fl (85-98) D 09/30/24 05:06 MCH 30.2 pg (27-33) 09/30/24 05:06 MCHC 32.1 g/dL (30-55) D 09/30/24 05:06 RDW 13.2 % (12.1-15.1) 09/30/24 05:06 Sodium 127 mmol/L (136-145) L 09/30/24 03:12 Potassium 4.5 mmol/L (3.5-5.1) 09/30/24 03:12 Chloride 93 mmol/L (98-107) L 09/30/24 03:12 Carbon Dioxide 20 mmol/L (22-29) L 09/30/24 03:12 Anion Gap 18.5 (5-19) 09/30/24 03:12 BUN 4 mg/dL (6-20) L 09/30/24 03:12 Creatinine 0.5 mg/dL (0.5-0.9) 09/30/24 03:12 GFR Calculation 145.9 mL/min (90-130) H 09/30/24 03:12 Treatment plan:: new consult Regimen:: 1000 MG Q8H TROUGH 09/30 0900
[2024-09-30] MEDS: VANCOMYCIN ADD-Vantage 1,000 MG in 0.9% NaCl ADD-Vantage 250 ML 250 MG IV (17:59)
--- NOTE | 2024-09-30 18:37 | PC.NURSE ---
Shift summary: Pt remains non-verbal. At the beginning of the shift she would cry out with repositioning. She is not crying out this evening. She has been febrile throughout shift. 101.6 ws the highest. Acetaminophen admin, it did not seem to bring down fever much if any. Her latest temp 100.4. Her left ear has had a small amount of drainage around noon ( when she was repositioned on her left side 2 hrs after ear gtts) Sinus tachycardia noted on monitor all shift. Skin in good condition without any redness. SHe has urinated 4 times this shift. Jevity 1.5 tube feeding. and 100ml H2O flushes. she is tolerating well.
[2024-09-30] MEDS: enoxaparin 40 mg/0.4 mL Syringe SUBCUT (21:05)
[2024-10-01] VITALS (27 sets, daily range): BP systolic 86–135; BP diastolic 59–108; PULSE 83–105; RESP 13–24; TEMP 36.5–37.9; O2SAT 82–97
[2024-10-01] MEDS: VANCOMYCIN ADD-Vantage 1,000 MG in 0.9% NaCl ADD-Vantage 250 ML 250 MG IV ×3 (02:14→18:04)
[2024-10-01] MEDS: dexamethasone 10 mg/mL INJ IVP (02:15)
[2024-10-01 04:37] LABS: Basophils % 0.1 %; Lymphocytes # 1.8 10^3/uL (0.8-4.8); Lymphocytes % 10.9 %; Mean Corpuscular HGB Conc 32.2 g/dL (30-55); Mean Corpuscular Hemoglobin 30.1 pg (27-33); Mean Corpuscular Volume 93.5 fl (85-98); Monocytes # 1.1 10^3/uL (0.2-0.9); Monocytes % 6.8 %; Neutrophils # 13.01 10^3/uL (1.8-7.7); Neutrophils % 80.8 %; Nucleated Red Blood Cells % 0 %; Platelet Count 281 10^3/cmm (157-399); Red Blood Count 2.46 10^6/uL (3.85-5.65); Red Cell Distribution Width 13.4 % (12.1-15.1)
[2024-10-01 04:58] LABS: Alanine Aminotransferase 18 U/L (0-33); Albumin Level 3.9 g/dL (3.5-5.2); Alkaline Phosphatase 100 U/L (35-105); Anion Gap 14.6 (5-19); Aspartate Amino Transferase 20 U/L (0-32); Blood Urea Nitrogen 7 mg/dL (6-20); Carbon Dioxide 23 mmol/L (22-29); Chloride 99 mmol/L (98-107); Creatinine Clr Calc Pharmacy 213.3843; Globulin 3.5 g/dL (1.3-4.6); Glomerular Filtration Rate 188.7 mL/min (90-130); Glucose 138 mg/dL (65-115); Magnesium 2.2 mg/dL (1.7-2.3); Osmolality Calculated 276 mOsm/kg (285-295); Phosphorus 2.6 mg/dL (2.5-4.5); Potassium 3.6 mmol/L (3.5-5.1); Sodium 133 mmol/L (136-145); Total Bilirubin 0.3 mg/dL (0.15-1.2); Total Protein 7.4 g/dL (6.6-8.7)
[2024-10-01] MEDS: levothyroxine 50 mcg Tablet PEG-TUBE (05:18)
[2024-10-01] MEDS: acetaminophen 325 mg Tablet 650 MG PO ×2 (05:28→13:51)
[2024-10-01] MEDS: cefepime 2,000 mg SDV 2000 MG IVP ×2 (08:44→18:02)
[2024-10-01] MEDS: nystatin cream 30 gm TOPICAL ×2 (08:45→18:03)
[2024-10-01] MEDS: ciprofloxacin-dexameth Otic Susp 7.5 mL Btl 4 DROP EAR-LEFT ×2 (08:45→18:03)
[2024-10-01] MEDS: HYDROcodone-acetaminophen 10-325 mg Tablet 1 TAB PO (08:55)
[2024-10-01] MEDS: sennosides-docusate Tablet 1 TAB PO ×2 (08:56→20:45)
[2024-10-01] MEDS: PHENobarbital 32.4 mg Tablet 64.8 MG PEG-TUBE ×2 (08:56→20:44)
[2024-10-01] MEDS: levETIRAcetam 500 mg Tablet 1500 MG PEG-TUBE ×2 (08:56→20:44)
[2024-10-01] MEDS: lamoTRIgine 100 mg Tablet 400 MG PEG-TUBE ×2 (08:56→20:45)
[2024-10-01] MEDS: baclofen 10 mg Tablet 5 MG PEG-TUBE ×2 (08:57→18:02)
[2024-10-01] MEDS: lactulose oral liq 20 gm/30 mL UDC 10 GM PEG-TUBE (08:57)
[2024-10-01] MEDS: famotidine 20 mg Tablet PEG-TUBE ×2 (08:57→20:45)
[2024-10-01] MEDS: nystatin powder 15 gm Btl TOPICAL ×2 (09:03→18:03)
[2024-10-01] MEDS: metroNIDAZOLE IV 500 MG/100 ML PREMIX 100 MG IV ×2 (09:04→18:06)
[2024-10-01 09:36] LABS: Vancomycin Trough 14.8 ug/mL (10-15)
--- NOTE | 2024-10-01 13:48 | PC.NUTR ---
Consult received for tube feeds. [facility] reported Pt was receiving Jevity 1.5 continuous @35mls/hr w/FWF of 250mls Q4H. Recommend consideration of Jevity 1.5 with goal rate of 35mls/hr with FWF of 120mls Q4H or per MD discretion.
--- NOTE | 2024-10-01 14:17 | PC.SOCIAL ---
IMM Update pg 2 of IMM updated and reviewed w/ patients guardian, Charlee, copy left @ bedside and copy dated, initialed and placed in chart.
--- NOTE | 2024-10-01 14:24 | P.PN_ITS ---
Subjective 2 Subjective: Patient was seen this morning, she is nonverbal, on examination, with manipulation of left ear she is in profound pain, she has significant drainage from her left ear, still not able to observe left tympanic membrane, she has exquisite left mastoid tenderness, febrile throughout the night, spoke to Dr. CUNHA, will see patient in the afternoon Vitals/I&O/Wt Last Vital Signs Temp 99.6 F 10/01/24 12:00 Pulse 99 10/01/24 14:00 Resp 24 H 10/01/24 14:00 BP 108/67 10/01/24 14:00 Pulse Ox 92 10/01/24 14:00 O2 Del Method Room Air 10/01/24 14:00 O2 Flow Rate 2 10/01/24 10:00 09/30/24 10/01/24 10/01/24 22:59 06:59 14:59 Intake Total 870 / 2093.75 350 / 2443.75 450 / 450 Balance 870 / 2093.75 350 / 2443.75 450 / 450 Weight last 48 hrs Weight 74.344 kg Weight 77.337 kg Weight 77.337 kg Physical Exam 2 Const: COMMON NORMALS: no acute distress ORIENTATION/CONSCIOUSNESS: Yes awake; not oriented to person, not oriented to place and not oriented to time Eye: COMMON NORMALS: Equal, round and reactive pupils present PUPIL: Yes Equal, round and reactive pupils present Neck/C-Spine: COMMON NORMALS: no JVD OTHER: Left tympanic membrane difficult to observe, purulent drainage Resp: COMMON NORMALS: normal respiratory effort, No retractions, No use of accessory muscles and clear to auscultation bilaterally AUSCULTATION: clear to auscultation bilaterally Cardio: COMMON NORMALS: no JVD, regular rate, regular rhythm, S1 normal heart sound present and S2 normal heart sound present RATE: regular rate RHYTHM: regular rhythm HEART SOUNDS: S1 normal heart sound present and S2 normal heart sound present GI: COMMON NORMALS: Normal to inspection, nondistended, normoactive bowel sounds present and non-tender Extremity: COMMON NORMALS: no pedal edema Neuro: SENSORIUM/ORIENTATION: No oriented to person, No oriented to place and No oriented to time Psych: COMMON NORMALS: mental status grossly normal Data 10/01/24 04:14 10/01/24 04:14 Micro: Microbiology 09/29/24 16:46 Blood Culture - Preliminary Blood NEGATIVE TO DATE 09/29/24 13:56 Blood Culture - Preliminary Blood NEGATIVE TO DATE A&P Assessment and plan (1) Hyponatremia: (2) Tachycardia: (3) Acute encephalopathy: (4) Mastoiditis: Plan Acute encephalopathy - UA no evidence of UTI - Chest x-ray no focal pneumonia - She has cerebral palsy, nonverbal -CT abdomen no acute findings -Likely secondary to acute otitis media, acute otitis externa, acute mastoiditis left - Possible meningitis? Unlikely no nuchal rigidity, Kernig sign negative, Brudzinski sign negative -Will consider lumbar puncture based on clinical progress if fever trend does not improve -obtain CRP 74.7, Pro-Corwin 0.04, sed rate 31, -blood cultures - For now continue vancomycin - cefepime, and Flagyl - Decadron was stopped after 24 hours - Monitor mentation closely Left otitis externa, left acute otitis media, left mastoiditis -Continues to be febrile CT of the head did show severe left mastoiditis -With acute otitis media, acute otitis externa -On examination today she is much more tender in the left mastoid, endorsing left otoscopic examination - I could not see the left tympanic membrane due to swelling of external auditory canal - This certainly could be a source of her altered mental status? Leukocytosis? - Continue antibiotics as above - CT temporal bone CT/CT temporal bone wo con* [id number] IMPRESSION: 1. Similar to the same-day head CT. The exam is motion limited. This will obscure subtle findings. 2. Very severe left mastoid disease with mastoiditis not excluded. Known per history. 3. Advanced left middle ear disease. No focal bone destruction is noted. No definite erosion of the scutum to strongly suggest cholesteatoma. 4. No tegmen defects are visualized. No evidence of pneumocephalus. 5. Up to severe sinus disease. 6. Follow with ENT. -On vancomycin, cefepime, Flagyl - ENT consulted Acute on chronic hyponatremia, monitor - Likely from seizure medications - However cannot rule out dehydration as she looks dehydrated -Start IV fluids Tachycardia, telemetry monitoring Continue PEG tube feedings, 35 cc an hour continuous tube feeds with free water flushes to 250 cc every 4 hours Sepsis features, Tachycardia, leukocytosis, encephalopathy Acute anemia hemoglobin 7.4, recheck this afternoon, iron studies Full code Lovenox for DVT prophylaxis Plan for today, continue IV antibiotics, monitor mentation, spoke to ENT, monitor hemoglobin, follow blood cultures, monitor fever trend PDMP PDMP Reviewed: Not Reviewed Attestations 2 Medical Necessity Statement*: Patient requires hospitalization for left otitis externa, left acute otitis media, left mastoiditis, Diagnoses Hyponatremia E87.1 Tachycardia R00.0 Acute encephalopathy G93.40 Mastoiditis H70.90
[2024-10-01 14:31] LABS: Basophils % 0.1 %; Hematocrit 21.5 % (36-47); Lymphocytes # 2.6 10^3/uL (0.8-4.8); Lymphocytes % 16.9 %; Mean Corpuscular Hemoglobin 30.5 pg (27-33); Mean Corpuscular Volume 92.3 fl (85-98); Mean Platelet Volume 9.8 fL (7.4-10.4); Monocytes # 2.2 10^3/uL (0.2-0.9); Monocytes % 14.2 %; Neutrophils # 10.41 10^3/uL (1.8-7.7); Neutrophils % 67.1 %; Nucleated Red Blood Cells % 0 %; Platelet Count 268 10^3/cmm (157-399); Red Blood Count 2.33 10^6/uL (3.85-5.65); Red Cell Distribution Width 13.6 % (12.1-15.1); White Blood Count 15.54 10^3/uL (3.29-11.43)
[2024-10-01 14:53] LABS: Ferritin 152 ng/mL (15-150); Iron 37 ug/dL (37-145)
--- NOTE | 2024-10-01 17:35 | P.CONIM_ITS ---
Providers/Reason For Consult 2 Consulting Physician/Specialty*: Dr. Omar Sampson MD Otolaryngology Reason for Consult*: Fever Otorrhea/Mastoiditis Requesting Physician: Dr. Andres Wong MD Attending Physician: Andres Wong MD Primary Care Provider: Kelvin Naqvi Jr, MD History of Present Illness History of Present Illness Jennyfer Bliss is a 29 year old female with a h/o CP who was recently admitted with persistent fever. The patient was noted to have otitis and mastoiditis in the left ear on a head CT. I was consulted to address the patient's ear disease. Review of Systems 2 General: Reports: ROS unobtainable due to medical condition and ROS unobtainable due to mental status Medications/Allergies Home Medications ?Medication ?Instructions ?Recorded ?Confirmed ?Last Taken ?Type lamotrigine 200 mg tablet 400 mg feeding tube BID@08,2 0 04/01/20 09/29/24 09/29/24 08:45 History rufinamide 400 mg tablet (Banzel) 1,400 mg feeding tub e BID@,04/01/20 09/29/24 09/29/24 08:45 History acetaminophen 325 mg tablet 650 mg feeding tube Q4H MO N Pain 04/26/22 09/29/24 09/27/24 01:30 History (Tylenol) famotidine 20 mg tablet 20 mg feeding tube BID@,04/26/22 09/29/24 09/29/24 08:45 History lactulose 10 gram/15 mL oral 10 g feeding tube DAILY@0 8 04/26/22 09/29/24 09/29/24 08:45 History solution levetiracetam 750 mg tablet 1,500 mg PO BID@,20 1106/2709/29/24 09/29/24 08:45 History menthol 4 % topical gel (Biofreeze See Rx Instructions .Route .COMPLEX 04/26/22 09/29/24 09/29/24 08:25 History (menthol)) phenobarbital 30 mg tablet 60 mg feeding tube BID@08,2 0 04/26/22 09/29/24 09/29/24 08:45 History sennosides 8.6 mg-docusate sodium 1 tab PO BID@,20 1 06/26/21 09/29/24 09/29/24 08:45 History 50 mg tablet (Senna-S) magnesium hydroxide 400 mg/5 mL 30 ml peg-tube DAILY P RN 05/06/22 09/29/24 08/25/24 13:35 History oral suspension (Milk of Magnesia) constipation bisacodyl 10 mg rectal suppository 10 mg MO DAILY PRN Constipation 03/02/23 09/29/24 07/08/24 16:35 History nystatin 100,000 unit/gram topical See Rx Instructions .Route .COMPLEX 03/02/23 09/29/24 Unknown History cream nystatin 100,000 unit/gram topical See Rx Instructions .Route .COMPLEX 03/02/23 09/29/24 Unknown History powder ([facility]) sodium phosphates 19 gram-7 118 ml MO DAILY PRN Consti pation 03/02/23 09/29/24 04/27/24 19:10 History gram/118 mL enema (Swrcw-Bl-Num Enema) baclofen 5 mg tablet 5 mg feeding tube BID 09/29/24 09/29/24 08:45 History hydrocodone 10 mg-acetaminophen 1 tab feeding tube BID PRN Pain 09/29/24 09/29/24 09/29/24 08:45 History 325 mg tablet levothyroxine 50 mcg tablet 50 mcg feeding tube DAILY 09/29/24 09/29/24 09/29/24 08:45 History white petrolatum-mineral oil 94 1 applic ophthalmic (e ye) DAILY 09/29/24 09/29/24 09/28/24 17:00 History %-3 % eye ointment Allergies Allergy/AdvReac Type Severity Reaction Status Date / Time diphenhydramine (From Allergy ADR-Seizure Verified 06/13/23 07:12 Benadryl) Current Medications Generic Name Dose Route Start Last Admin Trade Name Freq PRN Reason Stop Dose Admin Acetaminophen 650 mg 09/29/24 20:16 10/01/24 13:51 Acetaminophen 325 Mg Tablet PO 650 mg Q4H PRN Administration Pain Hydrocodone Bitart/Acetaminophen 1 tab 09/29/24 20:16 10/01/24 08:55 Hydrocodone-Acetaminophen 10-325 Mg Tablet PO 1 tab BID PRN Administration Pain Baclofen 5 mg 09/29/24 20:39 10/01/24 08:57 Baclofen 10 Mg Tablet PEG-TUBE 5 mg BID NIECY Administration Cefepime HCl 2,000 mg 09/30/24 08:15 10/01/24 08:44 Cefepime 2,000 Mg Sdv IVP 2,000 mg Q8H NIECY Administration Protocol Ciprofloxacin/Dexamethasone 4 drop 09/29/24 18:00 10/01/24 08:45 Ciprofloxacin-Dexameth Otic Susp 7.5 Ml Btl EAR-LEFT 4 drop BID NIECY Administration Protocol Enoxaparin Sodium 40 mg 09/29/24 20:16 09/30/24 21:05 Enoxaparin 40 Mg/0.4 Ml Syringe SUBCUT 40 mg Q24H NIECY Administration Famotidine 20 mg 09/29/24 20:16 10/01/24 08:57 Famotidine 20 Mg Tablet PEG-TUBE 20 mg BID@ NIECY Administration Metronidazole 500 mg in 100 mls @ 100 mls/hr 09/30/24 08:15 10/01/24 10:24 Flagyl Iv IV Infused Q8H NIECY Infusion Protocol Vancomycin HCl 1,000 mg/ 250 mls @ 250 mls/hr 09/30/24 18:00 10/01/24 11:45 Sodium Chloride IV Infused Q8H NIECY Infusion Lactulose 10 gm 09/30/24 08:00 10/01/24 08:57 Lactulose Oral Liq 20 Gm/30 Ml Udc PEG-TUBE 10 gm DAILY@08 NIECY Administration Lamotrigine 400 mg 09/29/24 20:16 10/01/24 08:56 Lamotrigine 100 Mg Tablet PEG-TUBE 400 mg BID@ NIECY Administration Levetiracetam 1,500 mg 09/29/24 20:16 10/01/24 08:56 Levetiracetam 500 Mg Tablet PEG-TUBE 1,500 mg BID@ NIECY Administration Levothyroxine Sodium 50 mcg 09/30/24 06:00 10/01/24 05:18 Levothyroxine 50 Mcg Tablet PEG-TUBE 50 mcg DAILY@0600 NIECY Administration Nystatin 0 applic 09/29/24 20:16 10/01/24 08:45 Nystatin Cream 30 Gm TOPICAL 1 applic BID NIECY Administration Nystatin 0 applic 09/29/24 20:16 10/01/24 09:03 Nystatin Powder 15 Gm Btl TOPICAL 1 applic BID NIECY Administration Phenobarbital 64.8 mg 09/30/24 08:00 10/01/24 08:56 Phenobarbital 32.4 Mg Tablet PEG-TUBE 64.8 mg BID@08,20 NIECY Administration Senna/Docusate Sodium 1 tab 09/29/24 20:16 10/01/24 08:56 Sennosides-Docusate Tablet PO 1 tab BID@08,20 NIECY Administration PFSH Acute 2 PFSH: Medical History Acute hyponatremia Hypothyroidism Panhypopituitarism Hyponatremia Perforated tympanic membrane Seizure disorder Cerebral palsy Surgical History Status post VNS (vagus nerve stimulator) placement ? S/P percutaneous endoscopic gastrostomy (PEG) tube placement Family History Other Diabetes Hyperlipidemia Social History Smoking and tobacco/nicotine status: never used tobacco/nicotine Alcohol intake: never Substance/Drug Use: never Caregiver/support person: Yes Lives independently: No Household members: other Housing: Prison Vitals/I&O/Wt Last Vital Signs Temp 99.6 F 10/01/24 12:00 Pulse 87 10/01/24 14:00 Resp 24 H 10/01/24 14:00 BP 108/67 10/01/24 14:00 Pulse Ox 92 10/01/24 14:00 O2 Del Method Room Air 10/01/24 14:00 O2 Flow Rate 2 10/01/24 10:00 10/01/24 10/01/24 10/01/24 06:59 14:59 22:59 Intake Total 350 / 2443.75 450 / 450 Balance 350 / 2443.75 450 / 450 Weight last 48 hrs Weight 74.344 kg Weight 77.337 kg Weight 77.337 kg Physical Exam 2 Const: EXAM LIMITATIONS: altered mental status GENERAL APPEARANCE: l ethargic ORIENTATION/CONSCIOUSNESS: Yes lethargic HENMT: COMMON NORMALS: normocephalic, atraumatic, external ears normal and Normal external nose present HEAD & SCALP: normocephalic and atraumatic N OSE: Normal external nose present EXTERNAL EAR: Yes external ears normal E XTERNAL AUDITORY CANAL: other (No redness, fluctuance, or tenderness of the left mastoid bone) TYMPANIC MEMBRANE: unable to visualize TM (Purulent otorrhea filling the left EAC ) Neuro: SENSORIUM/ORIENTATION: Yes lethargic Data 10/01/24 14:22 10/01/24 04:14 Micro: Microbiology 09/29/24 16:46 Blood Culture - Preliminary Blood NEGATIVE TO DATE 09/29/24 13:56 Blood Culture - Preliminary Blood NEGATIVE TO DATE A&P Assessment and plan (1) Mastoiditis: Impression: Left ear otitis with non surgical mastoiditis. After examining the patient and her temporal bone CT, I do not think that the patient's mastoiditis is surgical; her mastoid architecture is intact. Plan: - I recommend exam of the left ear under anesthesia with possible myringotomty with tympanostomy tube placement and cultures - Agree with continued antibiotics - I will add topical antibiotic drops once the ear has been examined and a tympanostomy tube has been placed PDMP PDMP Reviewed: Not Reviewed Consult Attestations 2 Medical Necessity Statement: I was consulted to address the patient's left ear otorrhea/mastoiditis Coding Level of Care Code Acute Code for [facility] Diagnoses Mastoiditis H70.90
--- NOTE | 2024-10-01 18:30 | PC.NURSE ---
Charlee Bliss, guardian called unit back. Discussed and obtained consent for tomorrow's ear procedure by Dr Sampson and Dr Sampson would be calling her in the am. Also provided condition update and impending transfer to room [address] [place] [address].
--- NOTE | 2024-10-01 18:53 | PC.NURSE ---
Blood bank called at shift change to notify RN blood is ready. shift mechanic notified.
[2024-10-01] MEDS: enoxaparin 40 mg/0.4 mL Syringe SUBCUT (20:45)
[2024-10-02] VITALS (21 sets, daily range): BP systolic 82–128; BP diastolic 63–89; PULSE 85–100; RESP 16–22; TEMP 36.1–37.6; O2SAT 92–96
[2024-10-02] MEDS: metroNIDAZOLE IV 500 MG/100 ML PREMIX 100 MG IV ×3 (00:01→15:25)
[2024-10-02] MEDS: cefepime 2,000 mg SDV 2000 MG IVP ×3 (00:01→15:25)
[2024-10-02] MEDS: VANCOMYCIN ADD-Vantage 1,000 MG in 0.9% NaCl ADD-Vantage 250 ML 250 MG IV ×3 (02:04→16:34)
[2024-10-02] MEDS: HYDROcodone-acetaminophen 10-325 mg Tablet 1 TAB PO (04:03)
[2024-10-02 06:13] LABS: Basophils % 0.3 %; Eosinophils % 0.1 %; Lymphocytes # 3.6 10^3/uL (0.8-4.8); Lymphocytes % 29.6 %; Mean Corpuscular HGB Conc 32.5 g/dL (30-55); Mean Corpuscular Hemoglobin 29.3 pg (27-33); Mean Platelet Volume 9.8 fL (7.4-10.4); Monocytes # 1.3 10^3/uL (0.2-0.9); Monocytes % 10.4 %; Neutrophils # 7.01 10^3/uL (1.8-7.7); Neutrophils % 57.9 %; Nucleated Red Blood Cells % 0 %; Platelet Count 273 10^3/cmm (157-399); Red Blood Count 3.11 10^6/uL (3.85-5.65); Red Cell Distribution Width 14.8 % (12.1-15.1); White Blood Count 12.12 10^3/uL (3.29-11.43)
[2024-10-02 06:27] LABS: Alanine Aminotransferase 19 U/L (0-33); Albumin Level 3.8 g/dL (3.5-5.2); Alkaline Phosphatase 89 U/L (35-105); Anion Gap 14.2 (5-19); Aspartate Amino Transferase 19 U/L (0-32); Blood Urea Nitrogen 8 mg/dL (6-20); Calcium 8.8 mg/dL (8.5-10.5); Carbon Dioxide 24 mmol/L (22-29); Chloride 93 mmol/L (98-107); Creatinine Clr Calc Pharmacy 208.4519; Globulin 3.4 g/dL (1.3-4.6); Glomerular Filtration Rate 188.7 mL/min (90-130); Glucose 99 mg/dL (65-115); Osmolality Calculated 264 mOsm/kg (285-295); Phosphorus 2.5 mg/dL (2.5-4.5); Potassium 3.2 mmol/L (3.5-5.1); Sodium 128 mmol/L (136-145); Total Bilirubin 0.3 mg/dL (0.15-1.2); Total Protein 7.2 g/dL (6.6-8.7)
[2024-10-02 07:11] LABS: Slide Review Slide Review Perform
--- NOTE | 2024-10-02 07:26 | PC.NURSE ---
Elidia Lua came up to floor to pause patients tube feeds as pt is going back to surgery today at 1140. This was not reported to me during shift change. Tube feed was paused. Elidia stated it was ok for pt to recieve morning meds via PEG tube.
[2024-10-02] MEDS: baclofen 10 mg Tablet 5 MG PEG-TUBE ×2 (08:10→16:33)
[2024-10-02] MEDS: sennosides-docusate Tablet 1 TAB PO ×2 (08:10→20:25)
[2024-10-02] MEDS: famotidine 20 mg Tablet PEG-TUBE ×2 (08:10→20:25)
[2024-10-02] MEDS: lactulose oral liq 20 gm/30 mL UDC 10 GM PEG-TUBE (08:11)
[2024-10-02] MEDS: levETIRAcetam 500 mg Tablet 1500 MG PEG-TUBE ×2 (08:11→20:25)
[2024-10-02] MEDS: PHENobarbital 32.4 mg Tablet 64.8 MG PEG-TUBE ×2 (08:11→20:25)
[2024-10-02] MEDS: levothyroxine 50 mcg Tablet PEG-TUBE (08:11)
[2024-10-02] MEDS: lamoTRIgine 100 mg Tablet 400 MG PEG-TUBE ×2 (08:11→20:25)
[2024-10-02] MEDS: ciprofloxacin-dexameth Otic Susp 7.5 mL Btl 4 DROP EAR-LEFT ×2 (08:22→16:34)
[2024-10-02] MEDS: nystatin powder 15 gm Btl TOPICAL (08:22)
[2024-10-02] MEDS: nystatin cream 30 gm TOPICAL ×2 (08:22→16:38)
--- NOTE | 2024-10-02 12:36 | PC.NURSE ---
Pt to Pre op at 1236.
--- NOTE | 2024-10-02 13:02 | P.ANESASSM_ITS ---
Pre-Anesthetic Assessment Height/Weight: Height 1.65 m Weight 73.573 kg Temp Pulse Resp BP Pulse Ox O2 Del Method O2 Flow Rate 99.2 F 85 22 H 106/72 96 Room Air 2 10/02/24 12:00 10/02/24 12:00 10/02/24 12:00 10/02/24 12:00 10/02/24 12:00 10/02/24 12:00 10/01/24 10:00 Operation Date: 10/02/24 11:40 Proposed Procedures p Myringotomy and Tubes(Not Applicable) - Omar Sampson MD Familial anesthetic complications: None Was Beta Ruby taken within 24 hours: N/A Was Clonidine taken within 24 hours: N/A Last intake: TF on hold since 699 Social No alcohol and No tobacco Exam clear to auscultation bilaterally and regular rate & rhythm Neuropsych CP, seizures Anesthetic Plan ASA status: 4 Anesthesia: MAC Risk of > 500 ml blood loss (7ml/kg in children): No Medications/Allergies Home Medications ?Medication ?Instructions ?Recorded ?Confirmed ?Last Taken ?Type lamotrigine 200 mg tablet 400 mg feeding tube BID@ 0 04/01/20 09/29/24 09/29/24 08:45 History rufinamide 400 mg tablet (Banzel) 1,400 mg feeding tub e BID@04/01/20 09/29/24 09/29/24 08:45 History acetaminophen 325 mg tablet 650 mg feeding tube Q4H OH N Pain 04/26/22 09/29/24 09/27/24 01:30 History (Tylenol) famotidine 20 mg tablet 20 mg feeding tube BID@04/26/22 09/29/24 09/29/24 08:45 History lactulose 10 gram/15 mL oral 10 g feeding tube DAILY@0 8 04/26/22 09/29/24 09/29/24 08:45 History solution levetiracetam 750 mg tablet 1,500 mg PO BID@04/0709/29/24 09/29/24 08:45 History menthol 4 % topical gel (Biofreeze See Rx Instructions .Route .COMPLEX 04/26/22 09/29/24 09/29/24 08:25 History (menthol)) phenobarbital 30 mg tablet 60 mg feeding tube BID@08,2 0 04/26/22 09/29/24 09/29/24 08:45 History sennosides 8.6 mg-docusate sodium 1 tab PO BID@08,20 1 06/26/21 09/29/24 09/29/24 08:45 History 50 mg tablet (Senna-S) magnesium hydroxide 400 mg/5 mL 30 ml peg-tube DAILY P RN 05/06/22 09/29/24 08/25/24 13:35 History oral suspension (Milk of Magnesia) constipation bisacodyl 10 mg rectal suppository 10 mg [place] DAILY PRN Constipation 03/02/23 09/29/24 07/08/24 16:35 History nystatin 100,000 unit/gram topical See Rx Instructions .Route .COMPLEX 03/02/23 09/29/24 Unknown History cream nystatin 100,000 unit/gram topical See Rx Instructions .Route .COMPLEX 03/02/23 09/29/24 Unknown History powder ([facility]) sodium phosphates 19 gram-7 118 ml [place] DAILY PRN Consti pation 03/02/23 09/29/24 04/27/24 19:10 History gram/118 mL enema (Lxykv-Ks-Ozc Enema) baclofen 5 mg tablet 5 mg feeding tube BID 09/29/24 09/29/24 08:45 History hydrocodone 10 mg-acetaminophen 1 tab feeding tube BID PRN Pain 09/29/24 09/29/24 09/29/24 08:45 History 325 mg tablet levothyroxine 50 mcg tablet 50 mcg feeding tube DAILY 09/29/24 09/29/24 09/29/24 08:45 History white petrolatum-mineral oil 94 1 applic ophthalmic (e ye) DAILY 09/29/24 09/29/24 09/28/24 17:00 History %-3 % eye ointment Allergies Allergy/AdvReac Type Severity Reaction Status Date / Time diphenhydramine (From Allergy ADR-Seizure Verified 06/13/23 07:12 Benadryl) Current Medications Generic Name Dose Route Start Last Admin Trade Name Freq PRN Reason Stop Dose Admin Acetaminophen 650 mg 09/29/24 20:16 10/01/24 13:51 Acetaminophen 325 Mg Tablet PO 650 mg Q4H PRN Administration Pain Hydrocodone Bitart/Acetaminophen 1 tab 09/29/24 20:16 10/02/24 04:03 Hydrocodone-Acetaminophen 10-325 Mg Tablet PO 1 tab BID PRN Administration Pain Baclofen 5 mg 09/29/24 20:39 10/02/24 08:10 Baclofen 10 Mg Tablet PEG-TUBE 5 mg BID NIECY Administration Cefepime HCl 2,000 mg 09/30/24 08:15 10/02/24 08:11 Cefepime 2,000 Mg Sdv IVP 2,000 mg Q8H NIECY Administration Protocol Ciprofloxacin/Dexamethasone 4 drop 09/29/24 18:00 10/02/24 08:22 Ciprofloxacin-Dexameth Otic Susp 7.5 Ml Btl EAR-LEFT 4 drop BID NIECY Administration Protocol Ciprofloxacin/Dexamethasone 4 drop 10/02/24 12:00 10/02/24 12:17 Ciprofloxacin-Dexameth Otic Susp 7.5 Ml Btl EAR-BOTH Not Given BID NIECY Protocol Enoxaparin Sodium 40 mg 09/29/24 20:16 10/01/24 20:45 Enoxaparin 40 Mg/0.4 Ml Syringe SUBCUT 40 mg Q24H NIECY Administration Famotidine 20 mg 09/29/24 20:16 10/02/24 08:10 Famotidine 20 Mg Tablet PEG-TUBE 20 mg BID@ NIECY Administration Metronidazole 500 mg in 100 mls @ 100 mls/hr 09/30/24 08:15 10/02/24 10:03 Flagyl Iv IV Infused Q8H NIECY Infusion Protocol Vancomycin HCl 1,000 mg/ 250 mls @ 250 mls/hr 09/30/24 18:00 10/02/24 11:12 Sodium Chloride IV Infused Q8H NIECY Infusion Lactulose 10 gm 09/30/24 08:00 10/02/24 08:11 Lactulose Oral Liq 20 Gm/30 Ml Udc PEG-TUBE 10 gm DAILY@08 NIECY Administration Lamotrigine 400 mg 09/29/24 20:16 10/02/24 08:11 Lamotrigine 100 Mg Tablet PEG-TUBE 400 mg BID@ NIECY Administration Levetiracetam 1,500 mg 09/29/24 20:16 10/02/24 08:11 Levetiracetam 500 Mg Tablet PEG-TUBE 1,500 mg BID@ NIECY Administration Levothyroxine Sodium 50 mcg 09/30/24 06:00 10/02/24 08:11 Levothyroxine 50 Mcg Tablet PEG-TUBE 50 mcg DAILY@0600 NIECY Administration Nystatin 0 applic 09/29/24 20:16 10/02/24 08:22 Nystatin Cream 30 Gm TOPICAL 30 applic BID NIECY Administration Nystatin 0 applic 09/29/24 20:16 10/02/24 08:22 Nystatin Powder 15 Gm Btl TOPICAL 15 applic BID NIECY Administration Phenobarbital 64.8 mg 09/30/24 08:00 10/02/24 08:11 Phenobarbital 32.4 Mg Tablet PEG-TUBE 64.8 mg BID@,20 NIECY Administration Senna/Docusate Sodium 1 tab 09/29/24 20:16 10/02/24 08:10 Sennosides-Docusate Tablet PO 1 tab BID@ NIECY Administration PFS Anesthesia Medical History Acute hyponatremia Hypothyroidism Panhypopituitarism Hyponatremia Perforated tympanic membrane Seizure disorder Cerebral palsy Surgical History Status post VNS (vagus nerve stimulator) placement ? S/P percutaneous endoscopic gastrostomy (PEG) tube placement Family History Other Diabetes Hyperlipidemia Social History Smoking and tobacco/nicotine status: never used tobacco/nicotine Alcohol intake: never Substance/Drug Use: never Caregiver/support person: Yes Lives independently: No Household members: other Housing: Detention Data Anesthesia 10/02/24 05:54 10/02/24 05:54 Short CBC 10/01/24 10/01/24 10/02/24 Range/Units 04:14 14:22 05:54 WBC 16.10 H 15.54 H 12.12 H (3.29-11.43) 10^3/uL Hgb 7.40 L 7.10 L 9.10 L (11.27-16.99) g/dL Hct 23.0 L 21.5 L 28.0 L D (36-47) % MCV 93.5 92.3 90.0 (85-98) fl Plt Count 281 D 268 273 (157-399) 10^3/cmm Neut % (Auto) 80.8 67.1 57.9 % Neut # (Auto) 13.01 H 10.41 H 7.01 (1.8-7.7) 10^3/uL BMP 10/01/24 10/02/24 04:14 05:54 Sodium 133 L 128 L Potassium 3.6 3.2 L Chloride 99 93 L Carbon Dioxide 23 24 BUN 7 8 Creatinine 0.4 L 0.4 L Glucose 138 H 99 Calcium 9.0 8.8 Liver Function 10/01/24 10/02/24 Range/Units 04:14 05:54 Total Bilirubin 0.3 0.3 (0.15-1.2) mg/dL AST 20 19 (0-32) U/L ALT 18 19 (0-33) U/L Alkaline Phosphatase 100 89 (35-105) U/L Albumin 3.9 3.8 (3.5-5.2) g/dL Blood Bank 10/01/24 17:44 Blood Type O Positive Rho(D) Type Rh positive Antibody Screen Negative Microbiology 10/01/24 20:20 Occult Blood (FIT) - Final Stool Routine Collection Cardiac Studies: 2 Echocardiogram Ultrasound 04/04/20
--- NOTE | 2024-10-02 13:35 | SUR.OPER ---
1335 EPI 1ML PLACED ON COTTON BALL AND PLACED IN LEFT EAR
[2024-10-02] MEDS: ciprofloxacin-dexameth Otic Susp 7.5 mL Btl 4 DROP EAR-BOTH (13:45)
--- NOTE | 2024-10-02 13:53 | P.OP_ITS ---
Operative Report Date of procedure: October 02, 2024 Pre-op diagnosis: Otitis media Non surgical mastoiditis Post-op diagnosis: same Post-op diagnosis: Otitis Media Non Surgical Mastoiditis Post-op findings: - The patient had purulent debris filling the left external auditory canal - The patient had [id number] swelling of the left externalu auditory canal - The patient had a thickened, inflammed left tympanic membrane - There was a purulent middle ear effusion present - O/W normal left ear exam - Normal left mastoid prominence/post auricualar area with no erythema, fluctuance, or swelling Procedure done: - Left ear myringotomy with 'T' tube placement - Left ear exam under anesthesia Implants: Left ear T tube Specimens removed/disposition: None Pathology: none sent Surgeon: Omar Sampson MD Anesthesia: General Estimated blood loss (mL): 5 IV fluids (mL): 200 Complications: None Findings: - Purulent discharge/debris filling the left ear canal - Inflammed, thickened left tympanic membrane - [id number] swelling of the left ear canal - Normal post auricular mastoid prominence - O/W Normal left ear exam Condition: stable Disposition: ICU Brief History: 29 yo wf with a h/o CP who was admitted with fever and left otitis media/non surgical mastoiditis. The hospitalist team requests surgical intervention. Procedure: The patient was identified in the preoperative area and was taken to the operating where she was placed on the operating table in the supine position. Anesthesia was obtained with general mask anesthesia and the left ear was turned towards the operating surgeon with the findings noted above. The operating microscope with a 300 mm lens was brought into the field and was used to make an inspection of the patient's left ear with findings noted above. The debris was evacuated from the left ear canal using the microscope and suction and aural speculum. The left tympanic membrane came into view and was found to be thickened, inflamed and injected. A radial incision was made in the anterior- inferior quadrant of the left tympanic membrane with a myringotomy knife. The middle ear effusion present was evacuated with suction. An attempt was made at placing a standard Trey bobbin tube, but because of the narrowness of the ear canal this was found to be impractical. At this point a T-tube was cut to the appropriate size and was placed in the left tympanic membrane myringotomy site without difficulty. The location of T tube in the tympanic membrane was confirmed and the ear was then filled with Ciprodex otic suspension followed by a cottonball. At this point the procedure was terminated and control of the patient was returned to anesthesia where she underwent an uneventful reversal of anesthesia and was taken to the recovery room in stable condition. There were no operative anesthetic complications.
--- NOTE | 2024-10-02 14:09 | PC.NURSE ---
This nurse took report from ELVIA Oneill in PACU at 1410.
--- NOTE | 2024-10-02 14:20 | ANE.PACU2 ---
Inpatient post-anesthesia follow up: Airway intact: Yes Vital signs: Temperature 97.0 F Pulse Rate 88 Respiratory Rate 16 Blood Pressure 106/74 Pulse Oximetry 93 Oxygen Delivery Me thod Room Air Oxygen Flow Rate 2 Fraction of Inspir ed Oxygen Hydration adequate: Yes Nausea and vomiting: Yes Pain level: 1 Mental status: Baseline
--- NOTE | 2024-10-02 14:34 | PC.NURSE ---
This nurse assumed care of pt again at this time.
[2024-10-02] MEDS: sodium chloride 0.9% 1,000 ML 30 ML IV (14:37)
--- NOTE | 2024-10-02 16:34 | P.PN_ITS ---
Subjective 2 Subjective: Patient was seen this morning, she is nonverbal, afebrile overnight, continues to have left mastoid tenderness, left ear pain with manipulation Vitals/I&O/Wt Last Vital Signs Temp 98.0 F 10/02/24 16:00 Pulse 88 10/02/24 16:00 Resp 18 10/02/24 16:00 BP 112/77 10/02/24 16:00 Pulse Ox 94 10/02/24 16:00 O2 Del Method Room Air 10/02/24 16:00 O2 Flow Rate 2 10/01/24 10:00 10/02/24 10/02/24 10/02/24 06:59 14:59 22:59 Intake Total 350 / 2155 350 / 350 100 / 450 Output Total 5 / 5 Balance 350 / 2155 345 / 345 100 / 445 Weight last 48 hrs Weight 73.573 kg Weight 74.344 kg Physical Exam 2 Const: COMMON NORMALS: no acute distress ORIENTATION/CONSCIOUSNESS: Yes awake and Yes oriented to person; not oriented to place and not oriented to time Resp: COMMON NORMALS: normal respiratory effort, No retractions, No use of accessory muscles and clear to auscultation bilaterally AUSCULTATION: clear to auscultation bilaterally Cardio: COMMON NORMALS: regular rate, regular rhythm, S1 normal heart sound present and S2 normal heart sound present RATE: regular rate RHYTHM: r egular rhythm HEART SOUNDS: S1 normal heart sound present and S2 normal heart sound present GI: COMMON NORMALS: Normal to inspection, nondistended, normoactive bowel sounds present and non-tender Extremity: COMMON NORMALS: no pedal edema Neuro: SENSORIUM/ORIENTATION: Yes oriented to person, No oriented to place and No oriented to time Data 10/02/24 05:54 10/02/24 05:54 Micro: Microbiology 10/01/24 20:20 Occult Blood (FIT) - Final Stool Routine Collection A&P Assessment and plan (1) Hyponatremia: (2) Tachycardia: (3) Acute encephalopathy: (4) Mastoiditis: Plan Acute encephalopathy - UA no evidence of UTI - Chest x-ray no focal pneumonia - She has cerebral palsy, nonverbal -CT abdomen no acute findings -Likely secondary to acute otitis media, acute otitis externa, acute mastoiditis left - Possible meningitis? Unlikely no nuchal rigidity, Kernig sign negative, Brudzinski sign negative -Will consider lumbar puncture based on clinical progress if fever trend does not improve -obtain CRP 74.7, Pro-Corwin 0.04, sed rate 31, -blood cultures - For now continue vancomycin - cefepime, and Flagyl - Decadron was stopped after 24 hours - Monitor mentation closely Left otitis externa, left acute otitis media, left mastoiditis -Continues to be febrile CT of the head did show severe left mastoiditis -With acute otitis media, acute otitis externa -On examination today she is much more tender in the left mastoid, endorsing left otoscopic examination - I could not see the left tympanic membrane due to swelling of external auditory canal - This certainly could be a source of her altered mental status? Leukocytosis? - Continue antibiotics as above - CT temporal bone CT/CT temporal bone wo con* [id number] IMPRESSION: 1. Similar to the same-day head CT. The exam is motion limited. This will obscure subtle findings. 2. Very severe left mastoid disease with mastoiditis not excluded. Known per history. 3. Advanced left middle ear disease. No focal bone destruction is noted. No definite erosion of the scutum to strongly suggest cholesteatoma. 4. No tegmen defects are visualized. No evidence of pneumocephalus. 5. Up to severe sinus disease. 6. Follow with ENT. -On vancomycin, cefepime, Flagyl - ENT consulted, bilateral tympanostomy tube placement today Acute on chronic hyponatremia, monitor - Likely from seizure medications - However cannot rule out dehydration as she looks dehydrated Tachycardia, telemetry monitoring Continue PEG tube feedings, 35 cc an hour continuous tube feeds with free water flushes to 250 cc every 4 hours Sepsis features, Tachycardia, leukocytosis, encephalopathy Acute anemia hemoglobin 7.4, recheck this afternoon, iron studies Full code Lovenox for DVT prophylaxis Plan for today, continue IV antibiotics, requiring surgical intervention today, monitor serum sodium, monitor fever trend PDMP PDMP Reviewed: Not Reviewed Attestations 2 Medical Necessity Statement*: Patient requires hospitalization for acute encephalopathy, left otitis externa/otitis media, hyponatremia/mastoiditis Diagnoses Hyponatremia E87.1 Tachycardia R00.0 Acute encephalopathy G93.40 Mastoiditis H70.90
[2024-10-02] MEDS: enoxaparin 40 mg/0.4 mL Syringe SUBCUT (20:26)
[2024-10-03] VITALS (9 sets, daily range): BP systolic 93–112; BP diastolic 62–79; PULSE 81–97; RESP 17–20; TEMP 36.8–38.2; O2SAT 92–95
[2024-10-03] MEDS: metroNIDAZOLE IV 500 MG/100 ML PREMIX 100 MG IV ×2 (01:09→08:36)
[2024-10-03] MEDS: cefepime 2,000 mg SDV 2000 MG IVP ×2 (01:09→08:35)
[2024-10-03] MEDS: VANCOMYCIN ADD-Vantage 1,000 MG in 0.9% NaCl ADD-Vantage 250 ML 250 MG IV ×3 (02:32→20:10)
[2024-10-03 05:47] LABS: Basophils # 0.1 10^3/uL (0.0-0.1); Basophils % 0.8 %; Eosinophils # 0.2 10^3/uL (0.0-0.8); Eosinophils % 2.7 %; Hematocrit 32.1 % (36-47); Lymphocytes # 3.2 10^3/uL (0.8-4.8); Mean Corpuscular HGB Conc 34.6 g/dL (30-55); Mean Corpuscular Hemoglobin 30.2 pg (27-33); Mean Corpuscular Volume 87.2 fl (85-98); Mean Platelet Volume 9.2 fL (7.4-10.4); Monocytes % 12.8 %; Neutrophils # 2.92 10^3/uL (1.8-7.7); Neutrophils % 37.3 %; Nucleated Red Blood Cells % 0.3 %; Platelet Count 344 10^3/cmm (157-399); Red Blood Count 3.68 10^6/uL (3.85-5.65); Red Cell Distribution Width 13.7 % (12.1-15.1); White Blood Count 7.81 10^3/uL (3.29-11.43)
[2024-10-03] MEDS: levothyroxine 50 mcg Tablet PEG-TUBE (06:01)
[2024-10-03 06:10] LABS: Slide Review Slide Review Perform
[2024-10-03 06:42] LABS: Alanine Aminotransferase 17 U/L (0-33); Alkaline Phosphatase 104 U/L (35-105); Anion Gap 18.2 (5-19); Aspartate Amino Transferase 18 U/L (0-32); Blood Urea Nitrogen 7 mg/dL (6-20); C Reactive Protein 88.3 mg/L (0.0-4.9); Calcium 8.9 mg/dL (8.5-10.5); Carbon Dioxide 26 mmol/L (22-29); Chloride 80 mmol/L (98-107); Creatinine Clr Calc Pharmacy 207.9762; Globulin 3.8 g/dL (1.3-4.6); Glomerular Filtration Rate 188.7 mL/min (90-130); Glucose 98 mg/dL (65-115); Osmolality Calculated 250 mOsm/kg (285-295); Potassium 3.2 mmol/L (3.5-5.1); Sodium 121 mmol/L (136-145); Total Bilirubin 0.3 mg/dL (0.15-1.2); Total Protein 7.8 g/dL (6.6-8.7)
[2024-10-03] MEDS: lactulose oral liq 20 gm/30 mL UDC 10 GM PEG-TUBE (08:34)
[2024-10-03] MEDS: levETIRAcetam 500 mg Tablet 1500 MG PEG-TUBE ×2 (08:35→20:09)
[2024-10-03] MEDS: baclofen 10 mg Tablet 5 MG PEG-TUBE ×2 (08:35→17:09)
[2024-10-03] MEDS: lamoTRIgine 100 mg Tablet 400 MG PEG-TUBE ×2 (08:35→20:10)
[2024-10-03] MEDS: sennosides-docusate Tablet 1 TAB PO ×2 (08:35→20:10)
[2024-10-03] MEDS: PHENobarbital 32.4 mg Tablet 64.8 MG PEG-TUBE ×2 (08:35→20:09)
[2024-10-03] MEDS: famotidine 20 mg Tablet PEG-TUBE ×2 (08:35→20:09)
[2024-10-03] MEDS: nystatin cream 30 gm TOPICAL ×2 (08:40→17:09)
[2024-10-03] MEDS: ciprofloxacin-dexameth Otic Susp 7.5 mL Btl 4 DROP EAR-LEFT ×2 (08:40→17:10)
[2024-10-03] MEDS: nystatin powder 15 gm Btl TOPICAL ×2 (08:40→17:09)
[2024-10-03 10:13] LABS: Blood Urea Nitrogen 7 mg/dL (6-20); Calcium 8.6 mg/dL (8.5-10.5); Carbon Dioxide 25 mmol/L (22-29); Chloride 79 mmol/L (98-107); Creatinine Clr Calc Pharmacy 277.3016; Glucose 94 mg/dL (65-115); Osmolality Calculated 242 mOsm/kg (285-295)
[2024-10-03 11:06] LABS: Sodium 117 mmol/L (136-145)
[2024-10-03 11:08] LABS: Anion Gap 16.7 (5-19); Potassium 3.7 mmol/L (3.5-5.1)
[2024-10-03] MEDS: sodium chloride 3% 500 ML 15 ML IV (11:25)
--- NOTE | 2024-10-03 12:14 | PM.CONSULT ---
Providers/Reason For Consult Consulting Physician/Specialty*: kommana/Nephrology Reason for Consult*: Hyponatremia Attending Physician: Andres Wong MD Primary Care Provider: Kelvin Naqvi Jr, MD History of Present Illness History of Present Illness Jennyfer Bliss is a 29 year old female Patient is a 29-year-old female with past medical history of cerebral palsy, nonverbal spastic quadriplegia, PEG tube feedings, chronic hyponatremia, panhypopituitarism was sent to the emergency department due to altered mental status. She was found to be tachycardic and febrile. Lab data reviewed. Sodium on presentation was 127 that has gotten worse to 117 this morning. Patient is currently being treated for left otitis externa and mastoiditis was getting IV vancomycin and cefepime as well as Flagyl. Patient was also receiving free water flushes via G-tube at 250 mL every 4 hours. Review of Systems Narrative: Cannot obtain full review of system assessment Medications/Allergies Home Medications ?Medication ?Instructions ?Recorded ?Confirmed ?Last Taken ?Type lamotrigine 200 mg tablet 400 mg feeding tube BID@04/01/20 09/29/24 09/29/24 08:45 History rufinamide 400 mg tablet (Banzel) 1,400 mg feeding tube BID@04/01/20 09/29/24 09/29/24 08:45 History acetaminophen 325 mg tablet 650 mg feeding tube Q4H PRN Pain 04/26/22 09/29/24 09/27/24 01:30 History (Tylenol) famotidine 20 mg tablet 20 mg feeding tube BID@04/26/22 09/29/24 09/29/24 08:45 History lactulose 10 gram/15 mL oral 10 g feeding tube DAILY@08 04/26/22 09/29/24 09/29/24 08:45 History solution levetiracetam 750 mg tablet 1,500 mg PO BID@04/26/22 09/29/24 09/29/24 08:45 History menthol 4 % topical gel (Biofreeze See Rx Instructions .Route .COMPLEX 04/26/22 09/29/24 09/29/24 08:25 History (menthol)) phenobarbital 30 mg tablet 60 mg feeding tube BID@08,20 04/26/22 09/29/24 09/29/24 08:45 History sennosides 8.6 mg-docusate sodium 1 tab PO BID@08,20 04/26/22 09/29/24 09/29/24 08:45 History 50 mg tablet (Senna-S) magnesium hydroxide 400 mg/5 mL 30 ml peg-tube DAILY PRN 05/06/22 09/29/24 08/25/24 13:35 History oral suspension (Milk of Magnesia) constipation bisacodyl 10 mg rectal suppository 10 mg OH DAILY PRN Constipation 03/02/23 09/29/24 07/08/24 16:35 History nystatin 100,000 unit/gram topical See Rx Instructions .Route .COMPLEX 03/02/23 09/29/24 Unknown History cream nystatin 100,000 unit/gram topical See Rx Instructions .Route .COMPLEX 03/02/23 09/29/24 Unknown History powder ([facility]) sodium phosphates 19 gram-7 118 ml OH DAILY PRN Constipation 03/02/23 09/29/24 04/27/24 19:10 History gram/118 mL enema ([id number] Enema) baclofen 5 mg tablet 5 mg feeding tube BID 09/29/24 09/29/24 09/29/24 08:45 History hydrocodone 10 mg-acetaminophen 1 tab feeding tube BID PRN Pain 09/29/24 09/29/24 09/29/24 08:45 History 325 mg tablet levothyroxine 50 mcg tablet 50 mcg feeding tube DAILY 09/29/24 09/29/24 09/29/24 08:45 History white petrolatum-mineral oil 94 1 applic ophthalmic (eye) DAILY 09/29/24 09/29/24 09/28/24 17:00 History %-3 % eye ointment Allergies Allergy/AdvReac Type Severity Reaction Status Date / Time diphenhydramine (From Allergy ADR-Seizure Verified 06/13/23 07:12 Benadryl) Current Medications Generic Name Dose Route Start Last Admin Trade Name Freq PRN Reason Stop Dose Admin Acetaminophen 650 mg 09/29/24 20:16 10/01/24 13:51 Acetaminophen 325 Mg Tablet PO 650 mg Q4H PRN Administration Pain Hydrocodone Bitart/Acetaminophen 1 tab 09/29/24 20:16 10/02/24 04:03 Hydrocodone-Acetaminophen 10-325 Mg Tablet PO 1 tab BID PRN Administration Pain Baclofen 5 mg 09/29/24 20:39 10/03/24 08:35 Baclofen 10 Mg Tablet PEG-TUBE 5 mg BID NIECY Administration Cefepime HCl 2,000 mg 09/30/24 08:15 10/03/24 08:35 Cefepime 2,000 Mg Sdv IVP 2,000 mg Q8H NIECY Administration Protocol Ciprofloxacin/Dexamethasone 4 drop 09/29/24 18:00 10/03/24 08:40 Ciprofloxacin-Dexameth Otic Susp 7.5 Ml Btl EAR-LEFT 4 drop BID NIECY Administration Protocol Enoxaparin Sodium 40 mg 09/29/24 20:16 10/02/24 20:26 Enoxaparin 40 Mg/0.4 Ml Syringe SUBCUT 40 mg Q24H NIECY Administration Famotidine 20 mg 09/29/24 20:16 10/03/24 08:35 Famotidine 20 Mg Tablet PEG-TUBE 20 mg BID@ NIECY Administration Metronidazole 500 mg in 100 mls @ 100 mls/hr 09/30/24 08:15 10/03/24 10:36 Flagyl Iv IV Infused Q8H NIECY Infusion Protocol Vancomycin HCl 1,000 mg/ 250 mls @ 250 mls/hr 09/30/24 18:00 10/03/24 11:17 Sodium Chloride IV 250 mls/hr Q8H NIECY Administration Sodium Chloride 500 mls @ 15 mls/hr 10/03/24 11:15 10/03/24 11:25 Sodium Chloride 3% IV 15 mls/hr .Q24H NIECY Administration Lactulose 10 gm 09/30/24 08:00 10/03/24 08:34 Lactulose Oral Liq 20 Gm/30 Ml Udc PEG-TUBE 10 gm DAILY@08 NIECY Administration Lamotrigine 400 mg 09/29/24 20:16 10/03/24 08:35 Lamotrigine 100 Mg Tablet PEG-TUBE 400 mg BID@ NIECY Administration Levetiracetam 1,500 mg 09/29/24 20:16 10/03/24 08:35 Levetiracetam 500 Mg Tablet PEG-TUBE 1,500 mg BID@ NIECY Administration Levothyroxine Sodium 50 mcg 09/30/24 06:00 10/03/24 06:01 Levothyroxine 50 Mcg Tablet PEG-TUBE 50 mcg DAILY@0600 NIECY Administration Nystatin 0 applic 09/29/24 20:16 10/03/24 08:40 Nystatin Cream 30 Gm TOPICAL 1 applic BID NIECY Administration Nystatin 0 applic 09/29/24 20:16 10/03/24 08:40 Nystatin Powder 15 Gm Btl TOPICAL 1 applic BID NIECY Administration Phenobarbital 64.8 mg 09/30/24 08:00 10/03/24 08:35 Phenobarbital 32.4 Mg Tablet PEG-TUBE 64.8 mg BID@08,20 NIECY Administration Senna/Docusate Sodium 1 tab 09/29/24 20:16 10/03/24 08:35 Sennosides-Docusate Tablet PO 1 tab BID@,20 NIECY Administration PFSH Acute PFSH: Medical History Acute hyponatremia Hypothyroidism Panhypopituitarism Hyponatremia Perforated tympanic membrane Seizure disorder Cerebral palsy Surgical History Status post VNS (vagus nerve stimulator) placement ? S/P percutaneous endoscopic gastrostomy (PEG) tube placement Family History Other Diabetes Hyperlipidemia Social History Smoking and tobacco/nicotine status: never used tobacco/nicotine Alcohol intake: never Substance/Drug Use: never Caregiver/support person: Yes Lives independently: No Household members: other Housing: Long-Term Vitals/I&O/Wt Last Vital Signs Temp 100.8 F H 10/03/24 12:01 Pulse 97 10/03/24 12:01 Resp 19 H 10/03/24 12:01 BP 106/68 10/03/24 12:01 Pulse Ox 94 10/03/24 12:01 O2 Del Method Room Air 10/03/24 12:01 O2 Flow Rate 2 10/01/24 10:00 10/02/24 10/03/24 10/03/24 22:59 06:59 14:59 Intake Total 350 / 700 350 / 1050 1764 / 1764 Balance 350 / 695 350 / 1045 1764 / 1764 Weight last 48 hrs Weight 73.21 kg Weight 73.573 kg Physical Exam Narrative: Somnolent, nonverbal, no distress Data 10/03/24 05:03 10/03/24 11:56 A&P Assessment and plan (1) Hyponatremia: Plan 1. Acute on chronic hyponatremia: Patient has low sodiums chronically in the range of 127-132 most likely from her psych meds and in the setting of panhypopituitarism. Sodium acutely worsened now down to 117 likely from receiving free water flushes and possible hypotonic fluids with IV antibiotics. -Currently stopped free water flushes and tube feeds are on hold, placed on 15 cc of 3% saline - Check sodiums every 4 hours, check urine sodium and urine osmolality - Goal to correct up to 120-123 range in the next 24 hours. Avoid rapid correction 2. Hypokalemia : Repleted Patient evaluated using audiovisual cart. Time spent 40 minutes. PDMP PDMP Reviewed: Not Reviewed Consult Attestations Medical Necessity Statement: per mai Coding Level of Care Code Acute Code for Chg Fwd Diagnoses Hyponatremia E87.1
[2024-10-03 12:40] LABS: Sodium 119 mmol/L (136-145)
[2024-10-03 14:56] LABS: Urine Random Sodium 159 mmol/L
[2024-10-03 16:38] LABS: Sodium 116 mmol/L (136-145)
[2024-10-03] MEDS: amoxicillin-clav 875-125 mg Tablet 1 TAB PO (17:09)
[2024-10-03] MEDS: acetaminophen 325 mg Tablet 650 MG PO (17:14)
--- NOTE | 2024-10-03 18:05 | P.PN_ITS ---
Subjective 2 Subjective: - Patient was seen this morning, she is nonverbal, she has left ear tenderness upon manipulation, - Overnight she was afebrile - Serum sodium dropped to 121, repeat se rum sodium 117 - Check serum sodiums every 4 hours, sta rted on hypertonic saline at 50 cc an hour - Nephrology consulted - In the afternoon patient developed tem peratures that as high as 100.8 - Continue vancomycin - Expand coverage to meropenem - CT scan to evaluate for source of infe ction, repeat blood cultures, sputum culture, urine cultures, inflammatory markers - Will consider lumbar puncture based on clinical progress Vitals/I&O/Wt Last Vital Signs Temp 99.8 F H 10/03/24 15:01 Pulse 92 10/03/24 15:01 Resp 20 H 10/03/24 15:01 BP 93/62 10/03/24 15:01 Pulse Ox 95 10/03/24 15:01 O2 Del Method Room Air 10/03/24 15:01 O2 Flow Rate 2 10/01/24 10:00 10/03/24 10/03/24 10/03/24 06:59 14:59 22:59 Intake Total 350 / 1050 2013 Balance 350 / 1045 2013 Weight last 48 hrs Weight 73.21 kg Weight 73.573 kg Physical Exam 2 Const: COMMON NORMALS: no acute distress Eye: COMMON NORMALS: Equal, round and reactive pupils present PUPIL: Yes Equal, round and reactive pupils present Resp: COMMON NORMALS: normal respiratory effort, No retractions, No use of accessory muscles and clear to auscultation bilaterally AUSCULTATION: clear to auscultation bilaterally Cardio: COMMON NORMALS: regular rate, regular rhythm, S1 normal heart sound present and S2 normal heart sound present RATE: regular rate RHYTHM: r egular rhythm HEART SOUNDS: S1 normal heart sound present and S2 normal heart sound present GI: COMMON NORMALS: Normal to inspection, nondistended, normoactive bowel sounds present and non-tender Extremity: COMMON NORMALS: no calf tenderness and no pedal edema Skin: OTHER: No skin rashes, No sacral rashes Data 10/03/24 05:03 10/03/24 16:11 A&P Assessment and plan (1) Hyponatremia: (2) Tachycardia: (3) Acute encephalopathy: (4) Mastoiditis: (5) Persistent fever: Plan Persistent fevers -No significant source of fever found on examination, no rashes, no DTI, no abdominal tenderness, lungs clear to auscultation bilaterally -Repeat blood cultures -Repeat urine culture -Respiratory viral panel -Repeat inflammatory markers -[facility] CT scan abdomen pelvis, CT cervical spine, CT head -Will consider lumbar puncture based on clinical progress - Expand antibiotic coverage to vancomycin, meropenem Acute on chronic hyponatremia -Serum down to 116 - Will hold tube feeds, hold free water flushes - Start hypertonic saline at 15 cc an hour -Monitor serum sodium every 4 hours - Seizure precautions - Neurochecks Acute encephalopathy - UA no evidence of UTI - Chest x-ray no focal pneumonia - She has cerebral palsy, nonverbal -CT abdomen no acute findings -Likely secondary to acute otitis media, acute otitis externa, acute mastoiditis left - Possible meningitis? Unlikely no nuchal rigidity, Kernig sign negative, Brudzinski sign negative -obtain CRP 74.7, Pro-Corwin 0.04, sed rate 31, -blood cultures so far no growth - Antibiotics as above - Monitor mentation closely Left otitis externa, left acute otitis media, left mastoiditis -Continues to be febrile CT of the head did show severe left mastoiditis -With acute otitis media, acute otitis externa -On examination today she is much more tender in the left mastoid, endorsing left otoscopic examination - I could not see the left tympanic membrane due to swelling of external auditory canal - This certainly could be a source of her altered mental status? Leukocytosis? - Continue antibiotics as above - CT temporal bone CT/CT temporal bone wo con* [id number] IMPRESSION: 1. Similar to the same-day head CT. The exam is motion limited. This will obscure subtle findings. 2. Very severe left mastoid disease with mastoiditis not excluded. Known per history. 3. Advanced left middle ear disease. No focal bone destruction is noted. No definite erosion of the scutum to strongly suggest cholesteatoma. 4. No tegmen defects are visualized. No evidence of pneumocephalus. 5. Up to severe sinus disease. 6. Follow with ENT. - On vancomycin -Added meropenem as above - ENT consulted, status post surgical intervention yesterday Tachycardia, telemetry monitoring PEG tube feedings, 35 cc an hour continuous tube feeds with free water flushes to 250 cc every 4 hours, currently on hold Sepsis features, Tachycardia, leukocytosis, encephalopathy Acute anemia hemoglobin 7.4, status post 1 unit PRBC, monitor hemoglobin History of cerebral palsy, nonverbal, PEG tube in place Full code Lovenox for DVT prophylaxis Plan for today, hypertonic saline, nephrology consultation, and wiggins CT scan PDMP PDMP Reviewed: Not Reviewed Attestations 2 Medical Necessity Statement*: Patient requires hospitalization for persistent fevers, hyponatremia, acute anemia Diagnoses Hyponatremia E87.1 Tachycardia R00.0 Acute encephalopathy G93.40 Mastoiditis H70.90 Persistent fever R50.9
--- NOTE | 2024-10-03 18:06 | CTR_ITS ---
PROCEDURE INFORMATION: Exam: CT Chest Without Contrast; Diagnostic Exam date and time: 10/03/2024 9:55 PM Age: 29 years old Clinical indication: Fever; Additional info: Fevers TECHNIQUE: Imaging protocol: Diagnostic computed tomography of the chest without contrast. Radiation optimization: All CT scans at this facility use at least one of these dose optimization techniques: automated exposure control; mA and/or kV adjustment per patient size (includes targeted exams where dose is matched to clinical indication); or iterative reconstruction. COMPARISON: CT chest abdpel w/*[id number] 10/24/2020 6:24 PM RADIATION DOSE METRICS: Total DLP (mGy-cm): 1084.7 FINDINGS: Tubes, catheters and devices: Left upper chest implanted nerve stimulator device. Lungs: Unremarkable. No consolidation. No masses. Pleural spaces: Trace left-sided pleural effusion. Negative for pneumothorax. Heart: Unremarkable. No cardiomegaly. No pericardial effusion. Coronary arteries: Negative for coronary calcifications. Esophagus: Unremarkable esophagus. Lymph nodes: Unremarkable. No enlarged lymph nodes. Vasculature: Unremarkable. No aortic aneurysm. Bones/joints: No acute fractures. No lytic bone lesions. Leftward convex midthoracic scoliosis. Posterior fusion is unremarkable in alignment. Soft tissues: Unremarkable. PROCEDURE INFORMATION: Exam: CT Abdomen And Pelvis Without Contrast Exam date and time: 10/03/2024 9:55 PM Age: 29 years old Clinical indication: Fever; Additional info: Fevers TECHNIQUE: Imaging protocol: Computed tomography of the abdomen and pelvis without contrast. Radiation optimization: All CT scans at this facility use at least one of these dose optimization techniques: automated exposure control; mA and/or kV adjustment per patient size (includes targeted exams where dose is matched to clinical indication); or iterative reconstruction. COMPARISON: CT abdomen pelvis w con* [id number] 09/29/2024 2:24 PM RADIATION DOSE METRICS: Total DLP (mGy-cm): 1084.7 FINDINGS: Tubes, catheters and devices: Gastrostomy catheter within the stomach. Liver: Normal. No mass. Gallbladder and biliary ducts: Cholelithiasis. Negative for gallbladder wall thickening. Negative for biliary system dilation. Pancreas: Normal. No ductal dilation. Spleen: Normal. No splenomegaly. Adrenal glands: Normal. No mass. Kidneys and ureters: Normal. No hydronephrosis. Stomach and bowel: Unremarkable. No obstruction. No mucosal thickening. Appendix: No evidence of appendicitis. Intraperitoneal space: Unremarkable. No free air. No significant fluid collection. Vasculature: Unremarkable. No abdominal aortic aneurysm. Lymph nodes: Unremarkable. No enlarged lymph nodes. Urinary bladder: Unremarkable as visualized. Reproductive: Hysterectomy. Bones/joints: Demineralized bones. Negative for acute fractures. Posterior upper lumbar spine fusion is unremarkable in appearance. Rightward convex scoliosis. Soft tissues: Unremarkable. CT/[place] [id number] IMPRESSION: Negative for acute pulmonary disease. IMPRESSION: Negative for acute abdominopelvic pathology.
--- NOTE | 2024-10-03 18:08 | CTR_ITS ---
PROCEDURE INFORMATION: Exam: CT Cervical Spine Without Contrast Exam date and time: 10/03/2024 9:55 PM Age: 29 years old Clinical indication: Weakness; Additional info: Fevers TECHNIQUE: Imaging protocol: Computed tomography of the cervical spine without contrast. Radiation optimization: All CT scans at this facility use at least one of these dose optimization techniques: automated exposure control; mA and/or kV adjustment per patient size (includes targeted exams where dose is matched to clinical indication); or iterative reconstruction. COMPARISON: CT cervical spin wo con* [id number] 04/05/2020 2:53 PM RADIATION DOSE METRICS: Total DLP (mGy-cm): 351.2 FINDINGS: Tubes, catheters and devices: There is an electrode on the left side of the neck unchanged from the previous examination. Bones: Bones are moderately osteopenic. There is no evidence of fracture or dislocation. Bilateral pedicle screws are partly imaged at T3. Chronic loss of height of C7 again identified not significantly changed. Normal variant unfused posterior arch of C1 again identified. Mastoid air cells: There are changes of mastoiditis in the left mastoid air cells as described on the concurrent CT scan of the brain which has been reported. Lungs: Lung apices are normal. Soft tissues: Unremarkable. CT/CT cervical spin wo con* [id number] IMPRESSION: 1. No acute findings. 2. Stable appearance of C7 compression deformity.
--- NOTE | 2024-10-03 18:08 | CTR_ITS ---
PROCEDURE INFORMATION: Exam: CT Head Without Contrast Exam date and time: 10/03/2024 9:55 PM Age: 29 years old Clinical indication: Fever; Additional info: Fevers TECHNIQUE: Imaging protocol: Computed tomography of the head without contrast. Radiation optimization: All CT scans at this facility use at least one of these dose optimization techniques: automated exposure control; mA and/or kV adjustment per patient size (includes targeted exams where dose is matched to clinical indication); or iterative reconstruction. COMPARISON: 1. CT head wo con* [id number] 09/29/2024 5:[address] head wo con* [id number] 10/24/2020 1:47 PM RADIATION DOSE METRICS: Total DLP (mGy-cm): 1196.7 FINDINGS: Brain: Normal. No hemorrhage. Unremarkable white matter. No mass effect. Cerebral ventricles: No ventriculomegaly. Paranasal sinuses: There is mucosal thickening in the ethmoid and sphenoid sinuses. There is also mucosal thickening in the maxillary antra but this is improved compared with 09/29/2024. Mastoid air cells: There are findings of severe left mastoiditis and otitis media and also fluid or soft tissue density in the left external auditory canal not significantly changed compared with 09/29/2024. Bones: Unremarkable. No acute fracture. Soft tissues: Unremarkable. CT/CT head wo con* [id number] IMPRESSION: 1. Left mastoiditis and otitis media not significantly changed 2. Sinus disease not significantly changed. 3. No acute intracranial finding.
[2024-10-03] MEDS: meropenem 1,000 mg SDV 1000 MG IVP (18:27)
[2024-10-03] MEDS: enoxaparin 40 mg/0.4 mL Syringe SUBCUT (20:11)
[2024-10-03 20:27] LABS: Adenovirus Not Detected (NOT DETECT); Chlamydia Pneumoniae Not Detected (NOT DETECT); Coronavirus 229E,HKU1,NL63,OC4 Not Detected (NOT DETECT); Human Metapneumovirus Not Detected (NOT DETECT); Human Rhinovirus/Enterovirus Not Detected (NOT DETECT); Influenza A Not Detected (NOT DETECT); Influenza A H1 Not Detected (NOT DETECT); Influenza A H1-2009 Not Detected (NOT DETECT); Influenza A H3 Not Detected (NOT DETECT); Influenza B Not Detected (NOT DETECT); Mycoplasma Pneumoniae Not Detected (NOT DETECT); Parainfluenza Virus Type 1 Not Detected (NOT DETECT); Parainfluenza Virus Type 2 Not Detected (NOT DETECT); Parainfluenza Virus Type 3 Not Detected (NOT DETECT); Parainfluenza Virus Type 4 Not Detected (NOT DETECT); Respiratory Syncytial Virus A Not Detected (NOT DETECT); Respiratory Syncytial Virus B Not Detected (NOT DETECT); SARS-COV-2 Not Detected (NOT DETECT)
[2024-10-03 21:07] LABS: Sodium 119 mmol/L (136-145)
[2024-10-04] VITALS (7 sets, daily range): BP systolic 101–110; BP diastolic 57–79; PULSE 78–90; RESP 16–19; TEMP 36.5–37; O2SAT 92–96
[2024-10-04 01:15] LABS: Sodium 123 mmol/L (136-145)
[2024-10-04] MEDS: meropenem 1,000 mg SDV 1000 MG IVP ×3 (02:25→18:09)
[2024-10-04] MEDS: VANCOMYCIN ADD-Vantage 1,000 MG in 0.9% NaCl ADD-Vantage 250 ML 250 MG IV ×3 (02:25→18:11)
[2024-10-04 04:29] LABS: Basophils # 0.1 10^3/uL (0.0-0.1); Basophils % 1.1 %; Eosinophils # 0.5 10^3/uL (0.0-0.8); Eosinophils % 5.7 %; Hematocrit 32.8 % (36-47); Lymphocytes # 3.3 10^3/uL (0.8-4.8); Lymphocytes % 41.3 %; Mean Corpuscular HGB Conc 34.5 g/dL (30-55); Mean Corpuscular Hemoglobin 29.8 pg (27-33); Mean Corpuscular Volume 86.5 fl (85-98); Mean Platelet Volume 9.1 fL (7.4-10.4); Monocytes # 1.1 10^3/uL (0.2-0.9); Monocytes % 13.6 %; Neutrophils # 2.31 10^3/uL (1.8-7.7); Neutrophils % 28.9 %; Nucleated Red Blood Cells % 0 %; Platelet Count 397 10^3/cmm (157-399); Red Blood Count 3.79 10^6/uL (3.85-5.65); Red Cell Distribution Width 13.2 % (12.1-15.1); White Blood Count 8.01 10^3/uL (3.29-11.43)
[2024-10-04 04:45] LABS: Erythrocyte Sedimentation Rate 47 mm/hr (0-15)
[2024-10-04 04:51] LABS: Slide Review Slide Review Perform
[2024-10-04 04:54] LABS: Alanine Aminotransferase 46 U/L (0-33); Albumin Level 3.9 g/dL (3.5-5.2); Alkaline Phosphatase 104 U/L (35-105); Anion Gap 16.6 (5-19); Aspartate Amino Transferase 58 U/L (0-32); Blood Urea Nitrogen 6 mg/dL (6-20); C Reactive Protein 76.3 mg/L (0.0-4.9); Calcium 8.9 mg/dL (8.5-10.5); Carbon Dioxide 25 mmol/L (22-29); Chloride 85 mmol/L (98-107); Creatinine Clr Calc Pharmacy 209.6405; Globulin 3.8 g/dL (1.3-4.6); Glomerular Filtration Rate 188.7 mL/min (90-130); Glucose 81 mg/dL (65-115); Osmolality Calculated 253 mOsm/kg (285-295); Potassium 3.6 mmol/L (3.5-5.1); Sodium 123 mmol/L (136-145); Total Bilirubin 0.4 mg/dL (0.15-1.2); Total Protein 7.7 g/dL (6.6-8.7)
[2024-10-04 05:31] LABS: Procalcitonin 0.14 ng/mL (0-0.5)
[2024-10-04] MEDS: levothyroxine 50 mcg Tablet PEG-TUBE (05:42)
[2024-10-04] MEDS: lactulose oral liq 20 gm/30 mL UDC 10 GM PEG-TUBE (08:49)
[2024-10-04] MEDS: famotidine 20 mg Tablet PEG-TUBE ×2 (08:50→21:11)
[2024-10-04] MEDS: baclofen 10 mg Tablet 5 MG PEG-TUBE ×2 (08:50→18:09)
[2024-10-04] MEDS: sennosides-docusate Tablet 1 TAB PO ×2 (08:51→21:11)
[2024-10-04] MEDS: lamoTRIgine 100 mg Tablet 400 MG PEG-TUBE ×2 (08:51→21:10)
[2024-10-04] MEDS: nystatin cream 30 gm TOPICAL ×2 (08:51→18:10)
[2024-10-04] MEDS: levETIRAcetam 500 mg Tablet 1500 MG PEG-TUBE ×2 (08:51→21:10)
[2024-10-04] MEDS: PHENobarbital 32.4 mg Tablet 64.8 MG PEG-TUBE ×2 (08:51→21:10)
[2024-10-04] MEDS: ciprofloxacin-dexameth Otic Susp 7.5 mL Btl 4 DROP EAR-LEFT ×2 (08:52→18:09)
[2024-10-04 09:05] LABS: Sodium 121 mmol/L (136-145)
[2024-10-04] MEDS: chlorhexidine gluconate 0.12% Btl 473 mL 15 ML MUCOUS MEM ×2 (10:32→18:09)
[2024-10-04 12:27] LABS: Sodium 123 mmol/L (136-145)
--- NOTE | 2024-10-04 14:05 | P.PN_ITS ---
Subjective 2 Subjective: Patient was seen this morning, she is alert, does not follow commands, no significant mastoid tenderness today, on the left, afebrile overnight, serum sodium 123, hypertonic saline has been held Vitals/I&O/Wt Last Vital Signs Temp 97.7 F 10/04/24 12:15 Pulse 90 10/04/24 12:15 Resp 18 10/04/24 12:15 BP 102/73 10/04/24 12:15 Pulse Ox 94 10/04/24 12:15 O2 Del Method Room Air 10/04/24 08:28 O2 Flow Rate 2 10/01/24 10:00 10/03/24 10/04/24 10/04/24 22:59 06:59 14:59 Intake Total 250 / 2264 458.5 / 2722.5 250 / 250 Balance 250 / 2264 458.5 / 2722.5 250 / 250 Weight last 48 hrs Weight 74.48 kg Weight 73.21 kg Physical Exam 2 Const: COMMON NORMALS: no acute distress HENMT: OTHER: Rash, oral cavity, corners of the lips, seems like HSV-1 infection Resp: COMMON NORMALS: normal respiratory effort, No retractions, No use of accessory muscles and clear to auscultation bilaterally AUSCULTATION: clear to auscultation bilaterally Cardio: COMMON NORMALS: regular rate, regular rhythm, S1 normal heart sound present and S2 normal heart sound present RATE: regular rate RHYTHM: r egular rhythm HEART SOUNDS: S1 normal heart sound present and S2 normal heart sound present GI: COMMON NORMALS: Normal to inspection, nondistended, normoactive bowel sounds present and non-tender Extremity: COMMON NORMALS: no pedal edema Psych: COMMON NORMALS: mental status grossly normal Data 10/04/24 04:17 10/04/24 11:50 Micro: Microbiology 10/03/24 13:48 Urine Culture - Preliminary Urine Catheterized 10/03/24 20:34 Blood Culture - Preliminary Blood SPECIMEN COLLECTED 10/03/24 20:37 Blood Culture - Preliminary Blood SPECIMEN COLLECTED A&P Assessment and plan (1) Hyponatremia: (2) Tachycardia: (3) Acute encephalopathy: (4) Mastoiditis: (5) Persistent fever: Plan Persistent fevers -No significant source of fever found on examination, no rashes, no DTI, no abdominal tenderness, lungs clear to auscultation bilaterally -Repeat blood cultures -Repeat urine culture -Respiratory viral panel -Repeat inflammatory markers -[facility] CT scan abdomen pelvis, CT cervical spine, CT head, no acute sources of fever found -Will consider lumbar puncture based on clinical progress - Expand antibiotic coverage to vancomycin, meropenem Acute on chronic hyponatremia -Serum down to 123, hypertonic saline held - Will hold tube feeds, hold free water flushes - hold hypertonic saline at 15 cc an hour -Monitor serum sodium every 4 hours - Seizure precautions - Neurochecks Acute encephalopathy - UA no evidence of UTI - Chest x-ray no focal pneumonia - She has cerebral palsy, nonverbal -CT abdomen no acute findings -Likely secondary to acute otitis media, acute otitis externa, acute mastoiditis left - Possible meningitis? Unlikely no nuchal rigidity, Kernig sign negative, Brudzinski sign negative -obtain CRP 74.7, Pro-Corwin 0.04, sed rate 31, -blood cultures so far no growth - Antibiotics as above - Monitor mentation closely Left otitis externa, left acute otitis media, left mastoiditis -Continues to be febrile CT of the head did show severe left mastoiditis -With acute otitis media, acute otitis externa -On examination today she is much more tender in the left mastoid, endorsing left otoscopic examination - I could not see the left tympanic membrane due to swelling of external auditory canal - This certainly could be a source of her altered mental status? Leukocytosis? - Continue antibiotics as above - CT temporal bone CT/CT temporal bone wo con* [id number] IMPRESSION: 1. Similar to the same-day head CT. The exam is motion limited. This will obscure subtle findings. 2. Very severe left mastoid disease with mastoiditis not excluded. Known per history. 3. Advanced left middle ear disease. No focal bone destruction is noted. No definite erosion of the scutum to strongly suggest cholesteatoma. 4. No tegmen defects are visualized. No evidence of pneumocephalus. 5. Up to severe sinus disease. 6. Follow with ENT. - On vancomycin -Added meropenem as above - ENT consulted, status post surgical intervention yesterday HSV stomatitis, start po acyclovir Tachycardia, telemetry monitoring PEG tube feedings, 35 cc an hour continuous tube feeds with free water flushes to 250 cc every 4 hours, currently on hold Sepsis features, Tachycardia, leukocytosis, encephalopathy Acute anemia hemoglobin 7.4, status post 1 unit PRBC, monitor hemoglobin History of cerebral palsy, nonverbal, PEG tube in place Full code Lovenox for DVT prophylaxis Plan for today, monitor serum sodium, continue IV antibiotics PDMP PDMP Reviewed: Not Reviewed Attestations 2 Medical Necessity Statement*: Patient requires hospitalization acute on chronic hyponatremia, acute encephalopathy, fevers Diagnoses Hyponatremia E87.1 Tachycardia R00.0 Acute encephalopathy G93.40 Mastoiditis H70.90 Persistent fever R50.9
--- NOTE | 2024-10-04 15:02 | P.PN_ITS ---
Subjective 2 Subjective: no new c/o Medications: Reviewed: Yes Vitals/I&O/Wt Last Vital Signs Temp 97.7 F 10/04/24 12:15 Pulse 90 10/04/24 12:15 Resp 18 10/04/24 12:15 BP 102/73 10/04/24 12:15 Pulse Ox 94 10/04/24 12:15 O2 Del Method Room Air 10/04/24 08:28 O2 Flow Rate 2 10/01/24 10:00 10/04/24 10/04/24 10/04/24 06:59 14:59 22:59 Intake Total 458.5 / 2722.5 250 / 250 Balance 458.5 / 2722.5 250 / 250 Weight last 48 hrs Weight 74.48 kg Weight 73.21 kg Physical Exam 2 Narrative: Somnolent, nonverbal, no distress Data 10/04/24 04:17 10/04/24 11:50 Micro: Microbiology 10/03/24 13:48 Urine Culture - Preliminary Urine Catheterized 10/03/24 20:34 Blood Culture - Preliminary Blood SPECIMEN COLLECTED 10/03/24 20:37 Blood Culture - Preliminary Blood SPECIMEN COLLECTED A&P Assessment and plan (1) Hyponatremia: Plan 1. Acute on chronic hyponatremia: Patient has low sodiums chronically in the range of 127-132 most likely from her psych meds and in the setting of panhypopituitarism. Sodium acutely worsened now down to 117 likely from receiving free water flushes and possible hypotonic fluids with IV antibiotics. -Currently stopped free water flushes , TF restarted - Check sodiums every 12 hours, check urine sodium and urine osmolality -Na 123 today Goal to correct up to 126-127 range in the next 24 hours. Avoid rapid correction -added urea tabs 2. Hypokalemia : Repleted Patient evaluated using audiovisual cart. Time spent 40 minutes. PDMP PDMP Reviewed: Not Reviewed Attestations 2 Medical Necessity Statement*: per mai Coding Level of Care Code Acute Code for [facility] Diagnoses Hyponatremia E87.1
[2024-10-04] MEDS: acyclovir 400 mg Tablet PO ×2 (15:04→21:11)
[2024-10-04 16:37] LABS: Sodium 121 mmol/L (136-145)
[2024-10-04] MEDS: urea 15 gm Powder 10 GM XX (18:08)
[2024-10-04 20:31] LABS: Sodium 119 mmol/L (136-145)
[2024-10-04] MEDS: enoxaparin 40 mg/0.4 mL Syringe SUBCUT (21:10)
--- NOTE | 2024-10-04 23:26 | PC.NURSE ---
This nurse turned tube feed off at due to order being held by Dr. Wong. There is dietary recommendation but no physician order to continue held feeding. This nurse will pass on to day shift nurse.
[2024-10-04] MEDS: ondansetron 2 mg/ML SDV 2 mL 4 MG IVP (23:31)
[2024-10-05] VITALS (7 sets, daily range): BP systolic 93–124; BP diastolic 53–69; PULSE 73–91; RESP 16–18; TEMP 36.7–37.2; O2SAT 91–96
[2024-10-05 01:30] LABS: Sodium 123 mmol/L (136-145)
[2024-10-05] MEDS: meropenem 1,000 mg SDV 1000 MG IVP ×2 (02:24→09:37)
[2024-10-05] MEDS: VANCOMYCIN ADD-Vantage 1,000 MG in 0.9% NaCl ADD-Vantage 250 ML 250 MG IV ×2 (02:25→09:38)
[2024-10-05 05:13] LABS: Hematocrit 33.8 % (36-47); Mean Corpuscular HGB Conc 34.9 g/dL (30-55); Mean Corpuscular Hemoglobin 30.1 pg (27-33); Mean Corpuscular Volume 86.2 fl (85-98); Mean Platelet Volume 8.7 fL (7.4-10.4); Platelet Count 466 10^3/cmm (157-399); Red Blood Count 3.92 10^6/uL (3.85-5.65); Red Cell Distribution Width 13.2 % (12.1-15.1); White Blood Count 8.52 10^3/uL (3.29-11.43)
[2024-10-05] MEDS: levothyroxine 50 mcg Tablet PEG-TUBE (05:25)
[2024-10-05 05:32] LABS: Procalcitonin 0.12 ng/mL (0-0.5)
[2024-10-05 05:36] LABS: Alanine Aminotransferase 57 U/L (0-33); Albumin Level 4.1 g/dL (3.5-5.2); Alkaline Phosphatase 118 U/L (35-105); Aspartate Amino Transferase 56 U/L (0-32); Blood Urea Nitrogen 11 mg/dL (6-20); C Reactive Protein 67.9 mg/L (0.0-4.9); Calcium 9.3 mg/dL (8.5-10.5); Carbon Dioxide 26 mmol/L (22-29); Chloride 85 mmol/L (98-107); Creatinine Clr Calc Pharmacy 204.1118; Globulin 4.3 g/dL (1.3-4.6); Glomerular Filtration Rate 188.7 mL/min (90-130); Glucose 85 mg/dL (65-115); Osmolality Calculated 259 mOsm/kg (285-295); Sodium 125 mmol/L (136-145); Total Bilirubin 0.3 mg/dL (0.15-1.2); Total Protein 8.4 g/dL (6.6-8.7)
[2024-10-05 05:44] LABS: Anion Gap 17.7 (5-19); Potassium 3.7 mmol/L (3.5-5.1)
[2024-10-05 05:58] LABS: Slide Review Slide Review Perform
[2024-10-05 05:59] LABS: Absolute Eosinophils 0.3 10^3/cmm (0.0-0.7); Absolute Neutrophil 3.6 10^3/cmm (1.4-6.5); Absolute Segmented Neutrophil 3.4 10/cmm (1.6-7.1); Band Neutrophils Absolute 0.2 10^3/cmm (0.0-1.2); Eosinophils 3 %; Lymphocytes 37 %; Monocytes Absolute 0.8 10^3/cmm (0.1-0.6); Platelet Estimate Increased (Normal); Segmented Neutrophils 40 %; Total Cells Counted 100 (0-100)
--- NOTE | 2024-10-05 06:52 | P.PN_ITS ---
Subjective 2 Subjective: events noted Medications: Reviewed: Yes Vitals/I&O/Wt Last Vital Signs Temp 98.6 F 10/05/24 04:00 Pulse 81 10/05/24 04:00 Resp 18 10/05/24 04:00 BP 124/53 10/05/24 04:00 Pulse Ox 96 10/05/24 04:00 O2 Del Method Room Air 10/05/24 04:00 O2 Flow Rate 2 10/01/24 10:00 10/04/24 10/04/24 10/05/24 14:59 22:59 06:59 Intake Total 250 / 250 250 / 500 250 / 750 Balance 250 / 250 250 / 500 250 / 750 Weight last 48 hrs Weight 70.261 kg Weight 74.48 kg Physical Exam 2 Narrative: Somnolent, nonverbal, no distress Data 10/05/24 04:44 10/05/24 12:14 Micro: Microbiology 10/03/24 20:34 Blood Culture - Preliminary Blood NEGATIVE TO DATE 10/03/24 20:37 Blood Culture - Preliminary Blood NEGATIVE TO DATE 09/29/24 16:46 Blood Culture - Final Blood NO GROWTH AFTER 5 DAYS 09/29/24 13:56 Blood Culture - Final Blood NO GROWTH AFTER 5 DAYS 10/03/24 13:48 Urine Culture - Preliminary Urine Catheterized A&P Assessment and plan (1) Hyponatremia: Plan 1. Acute on chronic hyponatremia: Patient has low sodiums chronically in the range of 127-132 most likely from her psych meds , poor solute intake and in the setting of panhypopituitarism. Sodium acutely worsened now down to 117 likely from receiving free water flushes and possible hypotonic fluids with IV antibiotics. -Currently stopped free water flushes , TF restarted - Check sodiums every 12 hours, check urine sodium and urine osmolality -Na 125 today , -added urea tabs 2. Hypokalemia : Repleted 3. h/o cerebral palsy Patient evaluated using audiovisual cart. Time spent 40 minutes. PDMP PDMP Reviewed: Not Reviewed Attestations 2 Medical Necessity Statement*: per medicine Coding Level of Care Code Acute Code for [facility] Fwd Diagnoses Hyponatremia E87.1
[2024-10-05 09:25] LABS: Sodium 121 mmol/L (136-145)
[2024-10-05] MEDS: urea 15 gm Powder 10 GM XX ×2 (09:30→17:21)
[2024-10-05] MEDS: acyclovir 400 mg Tablet PO ×3 (09:31→19:44)
[2024-10-05] MEDS: levETIRAcetam 500 mg Tablet 1500 MG PEG-TUBE ×2 (09:31→19:44)
[2024-10-05] MEDS: PHENobarbital 32.4 mg Tablet 64.8 MG PEG-TUBE ×2 (09:31→19:44)
[2024-10-05] MEDS: baclofen 10 mg Tablet 5 MG PEG-TUBE ×2 (09:31→17:22)
[2024-10-05] MEDS: famotidine 20 mg Tablet PEG-TUBE ×2 (09:31→19:44)
[2024-10-05] MEDS: HYDROcodone-acetaminophen 10-325 mg Tablet 1 TAB PO (09:31)
[2024-10-05] MEDS: lamoTRIgine 100 mg Tablet 400 MG PEG-TUBE ×2 (09:31→19:44)
[2024-10-05] MEDS: nystatin powder 15 gm Btl TOPICAL ×2 (09:32→17:23)
[2024-10-05] MEDS: chlorhexidine gluconate 0.12% Btl 473 mL 15 ML MUCOUS MEM ×2 (09:32→17:23)
[2024-10-05] MEDS: nystatin cream 30 gm TOPICAL ×2 (09:32→17:23)
[2024-10-05] MEDS: ciprofloxacin-dexameth Otic Susp 7.5 mL Btl 4 DROP EAR-LEFT ×2 (09:33→17:22)
[2024-10-05] MEDS: lactulose oral liq 20 gm/30 mL UDC 10 GM PEG-TUBE (09:33)
[2024-10-05] MEDS: sennosides-docusate Tablet 1 TAB PO ×2 (09:37→19:44)
[2024-10-05] MEDS: sodium chloride 3% 500 ML 25 ML IV (09:46)
--- NOTE | 2024-10-05 11:28 | PC.SOCIAL ---
IMM Updated Updated pt's guardian, Charlee, on IMM. No questions voiced. Provided a copy at pt's bedside. Initialed, dated, & timed copy in chart.
[2024-10-05 12:41] LABS: Sodium 122 mmol/L (136-145)
--- NOTE | 2024-10-05 12:57 | P.PN_ITS ---
Subjective 2 Subjective: Patient was seen this morning, she is afebrile overnight, normotensive, serum sodium between 121-124, -Sodium did drop to 119 overnight, overn ight hypertonic saline was resumed, currently going, serum sodium at noon time 122, will stop hypertonic saline - Spoke to nephrology, plan to continue to monitor serum sodiums, patient's PEG tube feeds continue at basal rate at 35 cc an hour, hold free water flushes - Left mastoid tenderness minimal today Vitals/I&O/Wt Last Vital Signs Temp 99.0 F 10/05/24 11:13 Pulse 79 10/05/24 11:13 Resp 16 10/05/24 11:13 BP 93/65 10/05/24 11:13 Pulse Ox 94 10/05/24 11:13 O2 Del Method Room Air 10/05/24 11:13 O2 Flow Rate 2 10/01/24 10:00 10/04/24 10/05/24 10/05/24 22:59 06:59 14:59 Intake Total 250 / 500 250 / 750 541.5 / 541.5 Balance 250 / 500 250 / 750 541.5 / 541.5 Weight last 48 hrs Weight 70.261 kg Weight 74.48 kg Physical Exam 2 Const: COMMON NORMALS: no acute distress OTHER: herpetic lesion around oral cavity, chin Resp: COMMON NORMALS: normal respiratory effort, No retractions, No use of accessory muscles and clear to auscultation bilaterally AUSCULTATION: clear to auscultation bilaterally Cardio: COMMON NORMALS: regular rate, regular rhythm, S1 normal heart sound present and S2 normal heart sound present RATE: regular rate RHYTHM: r egular rhythm HEART SOUNDS: S1 normal heart sound present and S2 normal heart sound present GI: COMMON NORMALS: Normal to inspection, nondistended, normoactive bowel sounds present and non-tender OTHER: peg tube Extremity: COMMON NORMALS: no pedal edema Psych: COMMON NORMALS: mental status grossly normal Data 10/05/24 04:44 10/05/24 12:14 Micro: Microbiology 10/03/24 13:48 Urine Culture - Final Urine Catheterized 10/03/24 20:34 Blood Culture - Preliminary Blood NEGATIVE TO DATE 10/03/24 20:37 Blood Culture - Preliminary Blood NEGATIVE TO DATE 09/29/24 16:46 Blood Culture - Final Blood NO GROWTH AFTER 5 DAYS 09/29/24 13:56 Blood Culture - Final Blood NO GROWTH AFTER 5 DAYS A&P Assessment and plan (1) Hyponatremia: (2) Tachycardia: (3) Acute encephalopathy: (4) Mastoiditis: (5) Persistent fever: Plan Persistent fevers -Afebrile for the last 72 hours -No significant source of fever found on examination, no rashes, no DTI, no abdominal tenderness, lungs clear to auscultation bilaterally -Repeat blood cultures, so far no growth -Repeat urine culture, the normal limits -Respiratory viral panel, within normal limits -Repeat inflammatory markers -Gomez CT scan abdomen pelvis, CT cervical spine, CT head, no acute sources of fever found -Will consider lumbar puncture based on clinical progress - Expand antibiotic coverage to vancomycin, meropenem, as no significant source of infection found, she is afebrile will de-escalate to p.o. antibiotics Acute on chronic hyponatremia -Serum sodium 122, off hypertension tonic saline -Serum down to 122, hypertonic saline held this afternoon -Some component related to patient's chronic psychotropic medications - Continue tube feeds, hold free water flushes - hold hypertonic saline at 15 cc an hour -Monitor serum sodium every 4 hours - Seizure precautions - Neurochecks Acute encephalopathy - UA no evidence of UTI - Chest x-ray no focal pneumonia - She has cerebral palsy, nonverbal -CT abdomen no acute findings -Likely secondary to acute otitis media, acute otitis externa, acute mastoiditis left - Possible meningitis? Unlikely no nuchal rigidity, Kernig sign negative, Brudzinski sign negative -obtain CRP 74.7, Pro-Corwin 0.04, sed rate 31, -blood cultures so far no growth - Antibiotics as above - Monitor mentation closely Left otitis externa, left acute otitis media, left mastoiditis -Continues to be febrile CT of the head did show severe left mastoiditis -With acute otitis media, acute otitis externa -On examination today she is much more tender in the left mastoid, endorsing left otoscopic examination - I could not see the left tympanic membrane due to swelling of external auditory canal - This certainly could be a source of her altered mental status? Leukocytosis? - Continue antibiotics as above - CT temporal bone CT/CT temporal bone wo con* [id number] IMPRESSION: 1. Similar to the same-day head CT. The exam is motion limited. This will obscure subtle findings. 2. Very severe left mastoid disease with mastoiditis not excluded. Known per history. 3. Advanced left middle ear disease. No focal bone destruction is noted. No definite erosion of the scutum to strongly suggest cholesteatoma. 4. No tegmen defects are visualized. No evidence of pneumocephalus. 5. Up to severe sinus disease. 6. Follow with ENT. - On vancomycin -Added meropenem as above - ENT consulted, status post surgical intervention, left ear myringotomy with T- tube placement, HSV stomatitis, continue p.o. acyclovir Tachycardia, telemetry monitoring PEG tube feedings, 35 cc an hour continuous tube feeds Sepsis features, Tachycardia, leukocytosis, encephalopathy resolved Acute anemia hemoglobin 7.4, status post 1 unit PRBC, improved 11.8, monitor hemoglobin History of cerebral palsy, nonverbal, PEG tube in place Full code Lovenox for DVT prophylaxis Plan for today, monitor serum sodium, transition of IV antibiotics to p.o. antibiotics PDMP PDMP Reviewed: Not Reviewed Attestations 2 Medical Necessity Statement*: Patient requires hospitalization for acute on chronic hyponatremia Diagnoses Hyponatremia E87.1 Tachycardia R00.0 Acute encephalopathy G93.40 Mastoiditis H70.90 Persistent fever R50.9
[2024-10-05 16:21] LABS: Osmolality Urine 710 mOsm/kg (50-1200)
[2024-10-05] MEDS: amoxicillin-clav 875-125 mg Tablet 1 TAB PO (17:22)
[2024-10-05] MEDS: lanolin oint 7 gm 1 APPLIC TOPICAL (17:23)
[2024-10-05 19:25] LABS: Sodium 127 mmol/L (136-145)
[2024-10-05] MEDS: enoxaparin 40 mg/0.4 mL Syringe SUBCUT (19:44)
[2024-10-06] VITALS (8 sets, daily range): BP systolic 79–99; BP diastolic 55–65; PULSE 92–97; RESP 14–18; TEMP 36.7–36.9; O2SAT 92–96
[2024-10-06 01:46] LABS: Hematocrit 36.5 % (36-47); Mean Corpuscular HGB Conc 32.9 g/dL (30-55); Mean Corpuscular Hemoglobin 29.3 pg (27-33); Mean Platelet Volume 9.3 fL (7.4-10.4); Platelet Count 357 10^3/cmm (157-399); Red Cell Distribution Width 13.6 % (12.1-15.1); Total Cells Counted 100 (0-100); White Blood Count 8.05 10^3/uL (3.29-11.43)
[2024-10-06 01:48] LABS: Absolute Neutrophil 3.5 10^3/cmm (1.4-6.5); Absolute Segmented Neutrophil 3.1 10/cmm (1.6-7.1); Band Neutrophils Absolute 0.4 10^3/cmm (0.0-1.2); Eosinophils 0 %; Lymphocytes 46 %; Lymphocytes Absolute 3.7 10^3/cmm (1.2-3.4); Monocytes Absolute 0.5 10^3/cmm (0.1-0.6); Platelet Estimate Normal (Normal); Segmented Neutrophils 39 %
[2024-10-06 01:49] LABS: Alanine Aminotransferase 57 U/L (0-33); Albumin Level 3.9 g/dL (3.5-5.2); Alkaline Phosphatase 120 U/L (35-105); Aspartate Amino Transferase 47 U/L (0-32); Blood Urea Nitrogen 19 mg/dL (6-20); Calcium 9.4 mg/dL (8.5-10.5); Carbon Dioxide 25 mmol/L (22-29); Chloride 92 mmol/L (98-107); Creatinine Clr Calc Pharmacy 204.1118; Globulin 4.1 g/dL (1.3-4.6); Glomerular Filtration Rate 188.7 mL/min (90-130); Glucose 107 mg/dL (65-115); Osmolality Calculated 271 mOsm/kg (285-295); Sodium 129 mmol/L (136-145); Total Bilirubin 0.2 mg/dL (0.15-1.2)
[2024-10-06 01:52] LABS: Anion Gap 15.9 (5-19); Potassium 3.9 mmol/L (3.5-5.1)
[2024-10-06] MEDS: levothyroxine 50 mcg Tablet PEG-TUBE (05:03)
[2024-10-06 06:06] LABS: Sodium 129 mmol/L (136-145)
[2024-10-06] MEDS: acyclovir 400 mg Tablet PO ×3 (08:48→19:51)
[2024-10-06] MEDS: amoxicillin-clav 875-125 mg Tablet 1 TAB PO ×2 (08:48→17:13)
[2024-10-06] MEDS: urea 15 gm Powder 10 GM XX ×2 (08:48→17:13)
[2024-10-06] MEDS: lactulose oral liq 20 gm/30 mL UDC 10 GM PEG-TUBE (08:48)
[2024-10-06] MEDS: levETIRAcetam 500 mg Tablet 1500 MG PEG-TUBE ×2 (08:48→19:50)
[2024-10-06] MEDS: famotidine 20 mg Tablet PEG-TUBE ×2 (08:49→19:50)
[2024-10-06] MEDS: sennosides-docusate Tablet 1 TAB PO ×2 (08:49→19:51)
[2024-10-06] MEDS: baclofen 10 mg Tablet 5 MG PEG-TUBE ×2 (08:49→17:13)
[2024-10-06] MEDS: PHENobarbital 32.4 mg Tablet 64.8 MG PEG-TUBE ×2 (08:49→19:51)
[2024-10-06] MEDS: lamoTRIgine 100 mg Tablet 400 MG PEG-TUBE ×2 (08:49→19:50)
[2024-10-06] MEDS: lanolin oint 7 gm 1 APPLIC TOPICAL ×2 (08:53→17:13)
[2024-10-06] MEDS: ciprofloxacin-dexameth Otic Susp 7.5 mL Btl 4 DROP EAR-LEFT ×2 (08:54→17:13)
[2024-10-06] MEDS: nystatin cream 30 gm TOPICAL ×2 (08:54→17:14)
[2024-10-06] MEDS: nystatin powder 15 gm Btl TOPICAL ×2 (08:54→17:14)
[2024-10-06] MEDS: chlorhexidine gluconate 0.12% Btl 473 mL 15 ML MUCOUS MEM ×2 (08:54→17:13)
--- NOTE | 2024-10-06 09:01 | P.PN_ITS ---
Subjective 2 Subjective: no new c/o Medications: Reviewed: Yes Vitals/I&O/Wt Last Vital Signs Temp 98.5 F 10/06/24 08:00 Pulse 96 10/06/24 08:00 Resp 16 10/06/24 08:00 BP 99/65 10/06/24 04:00 Pulse Ox 92 10/06/24 08:00 O2 Del Method Room Air 10/06/24 08:00 O2 Flow Rate 2 10/01/24 10:00 10/05/24 10/06/24 10/06/24 22:59 06:59 14:59 Intake Total 420 / 1044.833 Balance 420 / 1044.833 Weight last 48 hrs Weight 69.717 kg Weight 70.261 kg Physical Exam 2 Narrative: Somnolent, nonverbal, no distress Data 10/06/24 01:10 10/06/24 05:39 Micro: Microbiology 10/03/24 13:48 Urine Culture - Final Urine Catheterized A&P Assessment and plan (1) Hyponatremia: Plan 1. Acute on chronic hyponatremia: Patient has low sodiums chronically in the range of 127-132 most likely from her psych meds , poor solute intake and in the setting of panhypopituitarism. Sodium acutely worsened now down to 117 likely from receiving free water flushes and possible hypotonic fluids with IV antibiotics. -Currently stopped free water flushes- hold off for now , TF restarted - Check sodiums daily , noted Urine sodium and urine osmolality- c/w SIADH -Na 125 today , -added urea tabs 2. Hypokalemia : Repleted 3. h/o cerebral palsy Patient evaluated using audiovisual cart. Time spent 40 minutes. PDMP PDMP Reviewed: Not Reviewed Attestations 2 Medical Necessity Statement*: PER DORCASPR Coding Level of Care Code Acute Code for [facility] Diagnoses Hyponatremia E87.1
--- NOTE | 2024-10-06 13:53 | P.PN_ITS ---
Subjective 2 Subjective: Patient was seen this morning, no acute events overnight, afebrile, normotensive, Vitals/I&O/Wt Last Vital Signs Temp 98.5 F 10/06/24 10:55 Pulse 97 10/06/24 10:55 Resp 17 10/06/24 10:55 BP 84/60 10/06/24 10:55 Pulse Ox 95 10/06/24 10:55 O2 Del Method Room Air 10/06/24 10:55 O2 Flow Rate 2 10/01/24 10:00 10/05/24 10/06/24 10/06/24 22:59 06:59 14:59 Intake Total 420 / 1044.833 Balance 420 / 1044.833 Weight last 48 hrs Weight 69.717 kg Weight 70.261 kg Physical Exam 2 Const: COMMON NORMALS: no acute distress Resp: COMMON NORMALS: normal respiratory effort, No retractions, No use of accessory muscles and clear to auscultation bilaterally AUSCULTATION: clear to auscultation bilaterally Cardio: COMMON NORMALS: regular rate, regular rhythm, S1 normal heart sound present and S2 normal heart sound present RATE: regular rate RHYTHM: r egular rhythm HEART SOUNDS: S1 normal heart sound present and S2 normal heart sound present GI: COMMON NORMALS: Normal to inspection, nondistended, normoactive bowel sounds present and non-tender Extremity: COMMON NORMALS: no pedal edema Data 10/06/24 01:10 10/06/24 05:39 A&P Assessment and plan (1) Hyponatremia: (2) Tachycardia: (3) Acute encephalopathy: (4) Mastoiditis: (5) Persistent fever: Plan Persistent fevers, resolved -Afebrile for the last 96 hours -No significant source of fever found on examination, no rashes, no DTI, no abdominal tenderness, lungs clear to auscultation bilaterally -Repeat blood cultures, so far no growth -Repeat urine culture, the normal limits -Respiratory viral panel, within normal limits -Repeat inflammatory markers -Gomez CT scan abdomen pelvis, CT cervical spine, CT head, no acute sources of fever found -Will consider lumbar puncture based on clinical progress - Expand antibiotic coverage to vancomycin, meropenem, as no significant source of infection found, she is afebrile will de-escalate to p.o. antibiotics Acute on chronic hyponatremia -Serum sodium 129, off hypertension tonic salinen -Some component related to patient's chronic psychotropic medications - Continue tube feeds, hold free water flushes - hold hypertonic saline at 15 cc an hour -Monitor serum sodium every 6 hours - Seizure precautions - Neurochecks Acute encephalopathy - UA no evidence of UTI - Chest x-ray no focal pneumonia - She has cerebral palsy, nonverbal -CT abdomen no acute findings -Likely secondary to acute otitis media, acute otitis externa, acute mastoiditis left - Possible meningitis? Unlikely no nuchal rigidity, Kernig sign negative, Brudzinski sign negative -obtain CRP 74.7, Pro-Corwin 0.04, sed rate 31, -blood cultures so far no growth - Antibiotics as above - Monitor mentation closely Left otitis externa, left acute otitis media, left mastoiditis -Continues to be febrile CT of the head did show severe left mastoiditis -With acute otitis media, acute otitis externa -On examination today she is much more tender in the left mastoid, endorsing left otoscopic examination - I could not see the left tympanic membrane due to swelling of external auditory canal - This certainly could be a source of her altered mental status? Leukocytosis? - Continue antibiotics as above - CT temporal bone CT/CT temporal bone wo con* [id number] IMPRESSION: 1. Similar to the same-day head CT. The exam is motion limited. This will obscure subtle findings. 2. Very severe left mastoid disease with mastoiditis not excluded. Known per history. 3. Advanced left middle ear disease. No focal bone destruction is noted. No definite erosion of the scutum to strongly suggest cholesteatoma. 4. No tegmen defects are visualized. No evidence of pneumocephalus. 5. Up to severe sinus disease. 6. Follow with ENT. - On vancomycin -Added meropenem as above - ENT consulted, status post surgical intervention, left ear myringotomy with T- tube placement, HSV stomatitis, continue p.o. acyclovir Tachycardia, telemetry monitoring PEG tube feedings, 35 cc an hour continuous tube feeds Sepsis features, Tachycardia, leukocytosis, encephalopathy resolved Acute anemia hemoglobin 7.4, status post 1 unit PRBC, improved 11.8, monitor hemoglobin History of cerebral palsy, nonverbal, PEG tube in place Full code Lovenox for DVT prophylaxis Plan for today, monitor serum sodium, tube feeds PDMP PDMP Reviewed: Not Reviewed Attestations 2 Medical Necessity Statement*: Patient requires hospitalization for acute on chronic hyponatremia Diagnoses Hyponatremia E87.1 Tachycardia R00.0 Acute encephalopathy G93.40 Mastoiditis H70.90 Persistent fever R50.9
[2024-10-06] MEDS: HYDROcodone-acetaminophen 10-325 mg Tablet 1 TAB PO (15:44)
[2024-10-06] MEDS: enoxaparin 40 mg/0.4 mL Syringe SUBCUT (19:51)
[2024-10-07] VITALS (9 sets, daily range): BP systolic 96–148; BP diastolic 54–82; PULSE 77–96; RESP 18–20; TEMP 36.6–37.2; O2SAT 92–97
[2024-10-07 04:27] LABS: Basophils # 0.1 10^3/uL (0.0-0.1); Basophils % 1.3 %; Eosinophils # 0.3 10^3/uL (0.0-0.8); Eosinophils % 3.5 %; Hematocrit 36.9 % (36-47); Mean Corpuscular HGB Conc 32.2 g/dL (30-55); Mean Corpuscular Hemoglobin 29.5 pg (27-33); Mean Corpuscular Volume 91.6 fl (85-98); Mean Platelet Volume 8.6 fL (7.4-10.4); Neutrophils # 2.53 10^3/uL (1.8-7.7); Nucleated Red Blood Cells % 0 %; Platelet Count 518 10^3/cmm (157-399); Red Blood Count 4.03 10^6/uL (3.85-5.65); Red Cell Distribution Width 14.1 % (12.1-15.1); White Blood Count 9.39 10^3/uL (3.29-11.43)
[2024-10-07 04:47] LABS: Alanine Aminotransferase 49 U/L (0-33); Albumin Level 4.1 g/dL (3.5-5.2); Alkaline Phosphatase 125 U/L (35-105); Anion Gap 16.4 (5-19); Aspartate Amino Transferase 36 U/L (0-32); Blood Urea Nitrogen 18 mg/dL (6-20); Calcium 9.6 mg/dL (8.5-10.5); Carbon Dioxide 24 mmol/L (22-29); Chloride 95 mmol/L (98-107); Creatinine Clr Calc Pharmacy 203.3989; Globulin 4.4 g/dL (1.3-4.6); Glomerular Filtration Rate 188.7 mL/min (90-130); Glucose 97 mg/dL (65-115); Osmolality Calculated 274 mOsm/kg (285-295); Potassium 4.4 mmol/L (3.5-5.1); Sodium 131 mmol/L (136-145); Total Bilirubin 0.2 mg/dL (0.15-1.2); Total Protein 8.5 g/dL (6.6-8.7)
[2024-10-07 04:50] LABS: Absolute Neutrophil 2.9 10^3/cmm (1.4-6.5); Absolute Segmented Neutrophil 2.3 10/cmm (1.6-7.1); Band Neutrophils Absolute 0.6 10^3/cmm (0.0-1.2); Eosinophils 0 %; Lymphocytes 52 %; Lymphocytes Absolute 4.9 10^3/cmm (1.2-3.4); Monocytes Absolute 1.1 10^3/cmm (0.1-0.6); Platelet Estimate Increased (Normal); Segmented Neutrophils 25 %; Slide Review Slide Review Perform; Total Cells Counted 100 (0-100)
[2024-10-07] MEDS: levothyroxine 50 mcg Tablet PEG-TUBE (05:05)
[2024-10-07] MEDS: acetaminophen 325 mg Tablet 650 MG PO ×2 (05:05→19:07)
[2024-10-07] MEDS: lamoTRIgine 100 mg Tablet 400 MG PEG-TUBE ×2 (08:20→19:07)
[2024-10-07] MEDS: sennosides-docusate Tablet 1 TAB PO ×2 (08:20→19:06)
[2024-10-07] MEDS: PHENobarbital 32.4 mg Tablet 64.8 MG PEG-TUBE ×2 (08:20→19:07)
[2024-10-07] MEDS: lactulose oral liq 20 gm/30 mL UDC 10 GM PEG-TUBE (08:20)
[2024-10-07] MEDS: urea 15 gm Powder 10 GM XX ×2 (08:20→17:39)
[2024-10-07] MEDS: acyclovir 400 mg Tablet PO ×3 (08:21→19:06)
[2024-10-07] MEDS: ciprofloxacin-dexameth Otic Susp 7.5 mL Btl 4 DROP EAR-LEFT ×2 (08:21→17:41)
[2024-10-07] MEDS: nystatin cream 30 gm TOPICAL ×2 (08:21→17:40)
[2024-10-07] MEDS: lanolin oint 7 gm 1 APPLIC TOPICAL (08:21)
[2024-10-07] MEDS: levETIRAcetam 500 mg Tablet 1500 MG PEG-TUBE ×2 (08:21→19:06)
[2024-10-07] MEDS: amoxicillin-clav 875-125 mg Tablet 1 TAB PO ×2 (08:21→17:40)
[2024-10-07] MEDS: famotidine 20 mg Tablet PEG-TUBE ×2 (08:21→19:06)
[2024-10-07] MEDS: baclofen 10 mg Tablet 5 MG PEG-TUBE ×2 (08:21→17:40)
[2024-10-07] MEDS: chlorhexidine gluconate 0.12% Btl 473 mL 15 ML MUCOUS MEM ×2 (08:22→17:40)
--- NOTE | 2024-10-07 10:59 | P.PN_ITS ---
Subjective 2 Subjective: no new c/o Medications: Reviewed: Yes Vitals/I&O/Wt Last Vital Signs Temp 99 F 10/07/24 08:45 Pulse 77 10/07/24 08:45 Resp 18 10/07/24 08:45 BP 148/82 10/07/24 08:45 Pulse Ox 97 10/07/24 08:45 O2 Del Method Room Air 10/07/24 08:45 O2 Flow Rate 2 10/01/24 10:00 Weight last 48 hrs Weight 69.4 kg Weight 69.717 kg Physical Exam 2 Narrative: Somnolent, nonverbal, no distress Data 10/07/24 04:15 10/07/24 04:15 A&P Assessment and plan (1) Hyponatremia: Plan 1. Acute on chronic hyponatremia: Patient has low sodiums chronically in the range of 127-132 most likely from her psych meds , poor solute intake and in the setting of panhypopituitarism. Sodium acutely worsened now down to 117 likely from receiving free water flushes and possible hypotonic fluids with IV antibiotics. - , TF restarted , add free water 100 ml q 8 hours - Check sodiums daily , noted Urine sodium and urine osmolality- c/w SIADH -Na 131 today , -added urea tabs 2. Hypokalemia : Repleted 3. h/o cerebral palsy Patient evaluated using audiovisual cart. Time spent 40 minutes. PDMP PDMP Reviewed: Not Reviewed Attestations 2 Medical Necessity Statement*: per mai Coding Level of Care Code Acute Code for [facility] Fwd Diagnoses Hyponatremia E87.1
--- NOTE | 2024-10-07 14:09 | P.PN_ITS ---
Subjective 2 Subjective: Patient was seen this morning, she is glued to the TV, watching children programming, no acute events overnight, Vitals/I&O/Wt Last Vital Signs Temp 98.5 F 10/07/24 10:59 Pulse 83 10/07/24 13:55 Resp 19 H 10/07/24 10:59 BP 124/80 10/07/24 10:59 Pulse Ox 96 10/07/24 10:59 O2 Del Method Room Air 10/07/24 10:59 O2 Flow Rate 2 10/01/24 10:00 Weight last 48 hrs Weight 69.4 kg Weight 69.717 kg Physical Exam 2 Const: COMMON NORMALS: no acute distress Neck/C-Spine: COMMON NORMALS: no JVD Resp: COMMON NORMALS: normal respiratory effort, No retractions, No use of accessory muscles and clear to auscultation bilaterally AUSCULTATION: clear to auscultation bilaterally Cardio: COMMON NORMALS: no JVD, regular rate, regular rhythm, S1 normal heart sound present and S2 normal heart sound present RATE: regular rate RHYTHM: regular rhythm HEART SOUNDS: S1 normal heart sound present and S2 normal heart sound present GI: COMMON NORMALS: Normal to inspection, nondistended, normoactive bowel sounds present and non-tender Extremity: COMMON NORMALS: no pedal edema Data 10/07/24 04:15 10/07/24 04:15 A&P Assessment and plan (1) Hyponatremia: (2) Tachycardia: (3) Acute encephalopathy: (4) Mastoiditis: (5) Persistent fever: Plan Persistent fevers, resolved -Afebrile for the last 96 hours -No significant source of fever found on examination, no rashes, no DTI, no abdominal tenderness, lungs clear to auscultation bilaterally -Repeat blood cultures, so far no growth -Repeat urine culture, the normal limits -Respiratory viral panel, within normal limits -Repeat inflammatory markers -Gomez CT scan abdomen pelvis, CT cervical spine, CT head, no acute sources of fever found -Will consider lumbar puncture based on clinical progress - Expand antibiotic coverage to vancomycin, meropenem, as no significant source of infection found, she is afebrile will de-escalate to p.o. antibiotics Acute on chronic hyponatremia -Serum sodium 131, off hypertension tonic salinen -Some component related to patient's chronic psychotropic medications - Continue tube feeds, started free water flushes 100 cc every 8 hours - hold hypertonic saline at 15 cc an hour -Monitor serum sodium every 6 hours - Seizure precautions - Neurochecks Acute encephalopathy - UA no evidence of UTI - Chest x-ray no focal pneumonia - She has cerebral palsy, nonverbal -CT abdomen no acute findings -Likely secondary to acute otitis media, acute otitis externa, acute mastoiditis left - Possible meningitis? Unlikely no nuchal rigidity, Kernig sign negative, Brudzinski sign negative -obtain CRP 74.7, Pro-Corwin 0.04, sed rate 31, -blood cultures so far no growth - Antibiotics as above - Monitor mentation closely Left otitis externa, left acute otitis media, left mastoiditis -Continues to be febrile CT of the head did show severe left mastoiditis -With acute otitis media, acute otitis externa -On examination today she is much more tender in the left mastoid, endorsing left otoscopic examination - I could not see the left tympanic membrane due to swelling of external auditory canal - This certainly could be a source of her altered mental status? Leukocytosis? - Continue antibiotics as above - CT temporal bone CT/CT temporal bone wo con* [id number] IMPRESSION: 1. Similar to the same-day head CT. The exam is motion limited. This will obscure subtle findings. 2. Very severe left mastoid disease with mastoiditis not excluded. Known per history. 3. Advanced left middle ear disease. No focal bone destruction is noted. No definite erosion of the scutum to strongly suggest cholesteatoma. 4. No tegmen defects are visualized. No evidence of pneumocephalus. 5. Up to severe sinus disease. 6. Follow with ENT. - On vancomycin -Added meropenem as above - ENT consulted, status post surgical intervention, left ear myringotomy with T- tube placement, HSV stomatitis, continue p.o. acyclovir Tachycardia, telemetry monitoring PEG tube feedings, 35 cc an hour continuous tube feeds Sepsis features, Tachycardia, leukocytosis, encephalopathy resolved Acute anemia hemoglobin 7.4, status post 1 unit PRBC, improved 11.8, monitor hemoglobin History of cerebral palsy, nonverbal, PEG tube in place Full code Lovenox for DVT prophylaxis Plan for today, monitor serum sodium, tube feeds, start free water flushes likely discharge tomorrow PDMP PDMP Reviewed: Not Reviewed Attestations 2 Medical Necessity Statement*: Patient requires hospitalization for acute on chronic hyponatremia Diagnoses Hyponatremia E87.1 Tachycardia R00.0 Acute encephalopathy G93.40 Mastoiditis H70.90 Persistent fever R50.9
[2024-10-07] MEDS: nystatin powder 15 gm Btl TOPICAL (17:40)
[2024-10-07] MEDS: enoxaparin 40 mg/0.4 mL Syringe SUBCUT (19:08)
[2024-10-07 19:55] LABS: Sodium 134 mmol/L (136-145)
[2024-10-08] MEDS: HYDROcodone-acetaminophen 10-325 mg Tablet 1 TAB PO (00:12)
[2024-10-08 00:28] VITALS: BP 130/68; PULSE 99; RESP 18; TEMP 37.2; O2SAT 93
[2024-10-08 03:52] VITALS: BP 128/64; PULSE 88; RESP 16; TEMP 37.1; O2SAT 93
[2024-10-08] MEDS: levothyroxine 50 mcg Tablet PEG-TUBE (05:01)
[2024-10-08 05:18] VITALS: PULSE 80
[2024-10-08 07:59] VITALS: BP 84/69; PULSE 86; RESP 16; TEMP 36.7; O2SAT 95
[2024-10-08] MEDS: amoxicillin-clav 875-125 mg Tablet 1 TAB PO (08:46)
[2024-10-08] MEDS: lamoTRIgine 100 mg Tablet 400 MG PEG-TUBE (08:46)
[2024-10-08] MEDS: levETIRAcetam 500 mg Tablet 1500 MG PEG-TUBE (08:47)
[2024-10-08] MEDS: famotidine 20 mg Tablet PEG-TUBE (08:47)
[2024-10-08] MEDS: baclofen 10 mg Tablet 5 MG PEG-TUBE (08:47)
[2024-10-08] MEDS: lactulose oral liq 20 gm/30 mL UDC 10 GM PEG-TUBE (08:47)
[2024-10-08] MEDS: PHENobarbital 32.4 mg Tablet 64.8 MG PEG-TUBE (08:47)
[2024-10-08] MEDS: acyclovir 400 mg Tablet PO (08:47)
[2024-10-08] MEDS: sennosides-docusate Tablet 1 TAB PO (08:47)
[2024-10-08] MEDS: nystatin powder 15 gm Btl TOPICAL (08:50)
[2024-10-08] MEDS: chlorhexidine gluconate 0.12% Btl 473 mL 15 ML MUCOUS MEM (08:50)
[2024-10-08] MEDS: ciprofloxacin-dexameth Otic Susp 7.5 mL Btl 4 DROP EAR-LEFT (08:50)
[2024-10-08] MEDS: nystatin cream 30 gm TOPICAL (08:50)
[2024-10-08] MEDS: urea 15 gm Powder 10 GM XX (08:51)
[2024-10-08 09:34] LABS: Basophils % 0.6 %; Eosinophils # 0.2 10^3/uL (0.0-0.8); Eosinophils % 3.5 %; Hematocrit 35.9 % (36-47); Lymphocytes # 3.7 10^3/uL (0.8-4.8); Lymphocytes % 56.7 %; Mean Corpuscular HGB Conc 32.9 g/dL (30-55); Mean Corpuscular Hemoglobin 29.9 pg (27-33); Mean Corpuscular Volume 90.9 fl (85-98); Mean Platelet Volume 8.8 fL (7.4-10.4); Monocytes # 0.7 10^3/uL (0.2-0.9); Nucleated Red Blood Cells % 0 %; Platelet Count 411 10^3/cmm (157-399); Red Blood Count 3.95 10^6/uL (3.85-5.65); Red Cell Distribution Width 14.3 % (12.1-15.1); White Blood Count 6.54 10^3/uL (3.29-11.43)
--- NOTE | 2024-10-08 09:36 | PC.SOCIAL ---
IMM Update Pg. 2 of IMM Updated and provided at bedside.
[2024-10-08 09:43] LABS: Slide Review Slide Review Perform
[2024-10-08 09:50] LABS: Alanine Aminotransferase 38 U/L (0-33); Albumin Level 4.4 g/dL (3.5-5.2); Alkaline Phosphatase 133 U/L (35-105); Blood Urea Nitrogen 23 mg/dL (6-20); Calcium 9.7 mg/dL (8.5-10.5); Carbon Dioxide 25 mmol/L (22-29); Chloride 97 mmol/L (98-107); Creatinine Clr Calc Pharmacy 162.5053; Globulin 3.9 g/dL (1.3-4.6); Glomerular Filtration Rate 145.9 mL/min (90-130); Glucose 107 mg/dL (65-115); Osmolality Calculated 288 mOsm/kg (285-295); Sodium 137 mmol/L (136-145); Total Bilirubin 0.2 mg/dL (0.15-1.2); Total Protein 8.3 g/dL (6.6-8.7)
[2024-10-08 09:52] LABS: Anion Gap 20.3 (5-19); Aspartate Amino Transferase 29 U/L (0-32); Potassium 5.3 mmol/L (3.5-5.1)
--- NOTE | 2024-10-08 09:53 | P.PN_ITS ---
Subjective 2 Subjective: no acute events Medications: Reviewed: Yes Vitals/I&O/Wt Last Vital Signs Temp 98.0 F 10/08/24 07:59 Pulse 86 10/08/24 07:59 Resp 16 10/08/24 07:59 BP 84/69 10/08/24 07:59 Pulse Ox 95 10/08/24 07:59 O2 Del Method Room Air 10/08/24 07:59 O2 Flow Rate 2 10/01/24 10:00 Weight last 48 hrs Weight 69.513 kg Weight 69.4 kg Physical Exam 2 Narrative: Somnolent, nonverbal, no distress Data 10/08/24 09:24 10/08/24 09:24 A&P Assessment and plan (1) Hyponatremia: Plan 1. Acute on chronic hyponatremia: Patient has low sodiums chronically in the range of 127-132 most likely from her psych meds , poor solute intake and in the setting of panhypopituitarism. Sodium acutely worsened now down to 117 likely from receiving free water flushes and possible hypotonic fluids with IV antibiotics. - , TF restarted , add free water 100 ml q 8 hours - Check sodiums daily , noted Urine sodium and urine osmolality- c/w SIADH -Na 134 today , -added urea tabs - decrease to 10 gms daily 2. Hyperkalemia :monitor , adjust TF to a low K 3. h/o cerebral palsy Patient evaluated using audiovisual cart. Time spent 40 minutes. PDMP PDMP Reviewed: Not Reviewed Attestations 2 Medical Necessity Statement*: per medicine Coding Level of Care Code Acute Code for [facility] Diagnoses Hyponatremia E87.1
--- NOTE | 2024-10-08 10:15 | P.DS_ITS ---
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 due to concerns for altered mental status, calling out in pain. I cannot get any significant history from patient, in the emergency room she was found to be tachycardic heart rates up up into the 130s, febrile up today 99.9, white blood cell count 14.18, lactic acid 1.9, UA no UTI, chest x-ray no focal pneumonia, abdominal CT no acute findings Patient presented to [facility] for acute encephalopathy, secondary to left otitis externa, left acute otitis media, left mastoiditis, received IV antibiotics, ENT was consulted, underwent left ear myringotomy with T-tube placement, tolerated procedure well, will be discharged with close follow-up with primary care as outpatient, follow-up with ENT, discharged on p.o. antibiotics, Ciprodex eardrops Patient's hospitalization was complicated persistent fevers, so far blood cultures remain unremarkable, remains afebrile For HSV stomatitis, discharged on p.o. acyclovir For acute on chronic anemia, required 1 unit PRBC, hemoglobin stable on discharge For acute on chronic hyponatremia, nephrology was consulted required hypertonic saline during hospitalization, overall clinically improved, transitioned off hypertonic saline, required urea tablets, will be discharged on urea tablets, instructions to monitor serum sodiums weekly, free water on patient's tube feeds was decreased to 100 cc every 8 hours Physical Exam Const: COMMON NORMALS: no acute distress Resp: COMMON NORMALS: normal respiratory effort, No retractions, No use of accessory muscles and clear to auscultation bilaterally AUSCULTATION: clear to auscultation bilaterally Cardio: COMMON NORMALS: regular rate, regular rhythm, S1 normal heart sound present and S2 normal heart sound present RATE: regular rate RHYTHM: regular rhythm HEART SOUNDS: S1 normal heart sound present and S2 normal heart sound present GI: COMMON NORMALS: Normal to inspection, nondistended, normoactive bowel sounds present and non-tender Extremity: COMMON NORMALS: no pedal edema Psych: COMMON NORMALS: mental status grossly normal Discharge Data Studies Completed and Pending Completed Studies During Hospitalization Category Date Time Status CT abdomen pelvis w con* [id number] Stat Cat Scan 09/29/24 12:[address] cervical spin wo con* [id number] Routine Cat Scan 10/03/24 18:[address] chest abdomen pelvis [[place] [id number] Cat Scan 10/03/24 18:06 Completed ] Stat CT head wo con* [id number] Routine Cat Scan 10/03/24 18:[address] head wo con* [id number] Stat Cat Scan 09/29/24 16:[address] temporal bone wo con* [id number] Stat Cat Scan 09/29/24 17:57 Completed XR chest 1V portable [id number] Stat Exams 09/29/24 16:00 Completed Pending at discharge Category Date Time Status Blood Culture Stat Lab 10/03/24 20:34 Results Radiology Impressions Abdomen/Pelvis CT 09/29/24 12:24 IMPRESSION: 1. No CT evidence of acute intra-abdominal or pelvic pathology. 2. Additional findings, as above. Chest X-Ray 09/29/24 16:00 IMPRESSION: No acute radiographic findings. Temporal Bone CT 09/29/24 17:57 IMPRESSION: 1. Similar to the same-day head CT. The exam is motion limited. This will obscure subtle findings. 2. Very severe left mastoid disease with mastoiditis not excluded. Known per history. 3. Advanced left middle ear disease. No focal bone destruction is noted. No definite erosion of the scutum to strongly suggest cholesteatoma. 4. No tegmen defects are visualized. No evidence of pneumocephalus. 5. Up to severe sinus disease. 6. Follow with ENT. Chest/Abdomen/Pelvis CT 10/03/24 18:06 IMPRESSION: Negative for acute pulmonary disease. IMPRESSION: Negative for acute abdominopelvic pathology. Cervical Spine CT 10/03/24 18:08 IMPRESSION: 1. No acute findings. 2. Stable appearance of C7 compression deformity. Head CT 10/03/24 18:08 IMPRESSION: 1. Left mastoiditis and otitis media not significantly changed 2. Sinus disease not significantly changed. 3. No acute intracranial finding. Laboratory Results WBC 6.54 10^3/uL (3.29-11.43) 10/08/24 09:24 Corrected WBC Cancelled 10/06/24 01:10 RBC 3.95 10^6/uL (3.85-5.65) 10/08/24 09:24 Hgb 11.80 g/dL (11.27-16.99) 10/08/24 09:24 Hct 35.9 % (36-47) L 10/08/24 09:24 MCV 90.9 fl (85-98) 10/08/24 09:24 MCH 29.9 pg (27-33) 10/08/24 09:24 MCHC 32.9 g/dL (30-55) 10/08/24 09:24 RDW 14.3 % (12.1-15.1) 10/08/24 09:24 Plt Count 411 10^3/cmm (157-399) H 10/08/24 09:24 MPV 8.8 fL (7.4-10.4) 10/08/24 09:24 Gran % Cancelled 10/06/24 01:10 Neut % (Auto) 23.0 % 10/08/24 09:24 Lymph % (Auto) 56.7 % 10/08/24 09:24 [place] % (Auto) 11.0 % 10/08/24 09:24 Eos % (Auto) 3.5 % 10/08/24 09:24 Baso % (Auto) 0.6 % 10/08/24 09:24 Neut # (Auto) 1.50 10^3/uL (1.8-7.7) L 10/08/24 09:24 Lymph # (Auto) 3.7 10^3/uL (0.8-4.8) 10/08/24 09:24 [place] # (Auto) 0.7 10^3/uL (0.2-0.9) 10/08/24 09:24 Eos # (Auto) 0.2 10^3/uL (0.0-0.8) 10/08/24 09:24 Baso # (Auto) 0.0 10^3/uL (0.0-0.1) 10/08/24 09:24 Absolute Gran (auto) Cancelled 10/06/24 01:10 Nucleated RBC % (auto) 0 % 10/08/24 09:24 Total Counted 100 (0-100) 10/07/24 04:15 Atypical Lymphs % 0.0 % (0-5) 10/07/24 04:15 Absolute Neutrophils 2.9 10^3/cmm (1.4-6.5) 10/07/24 04:15 Segmented Neutrophils 25 % 10/07/24 04:15 Band Neutrophils 6.0 % 10/07/24 04:15 Absolute Lymphocytes 4.9 10^3/cmm (1.2-3.4) H 10/07/24 04:15 Lymphocytes (Manual) 52 % 10/07/24 04:15 Monocytes (Manual) 12.0 % 10/07/24 04:15 Absolute Monocytes 1.1 10^3/cmm (0.1-0.6) H 10/07/24 04:15 Eosinophils (Manual) 0 % 10/07/24 04:15 Absolute Eosinophils 0.0 10^3/cmm (0.0-0.7) 10/07/24 04:15 Basophils (Manual) 0.0 % 10/07/24 04:15 Absolute Basophils 0.0 10^3/cmm (0.0-0.2) 10/07/24 04:15 Metamyelocytes 2.0 % 10/07/24 04:15 Myelocytes 3.0 % 10/07/24 04:15 Nucleated RBCs # 0.0 /100WBC 10/08/24 09:24 Platelet Estimate Increased (Normal) H 10/07/24 04:15 ESR 47 mm/hr (0-15) H 10/04/24 04:17 Sodium 137 mmol/L (136-145) 10/08/24 09:24 Potassium 5.3 mmol/L (3.5-5.1) H 10/08/24 09:24 Chloride 97 mmol/L (98-107) L 10/08/24 09:24 Carbon Dioxide 25 mmol/L (22-29) 10/08/24 09:24 Anion Gap 20.3 (5-19) H 10/08/24 09:24 BUN 23 mg/dL (6-20) H 10/08/24 09:24 Creatinine 0.5 mg/dL (0.5-0.9) 10/08/24 09:24 GFR Calculation 145.9 mL/min (90-130) H 10/08/24 09:24 Glucose 107 mg/dL (65-115) 10/08/24 09:24 Estimat Average Glucose 105 09/29/24 13:56 Hemoglobin A1c 5.3 % (4.0-6.0) 09/29/24 13:56 Calculated Osmolality 288 mOsm/kg (285-295) 10/08/24 09:24 Lactic Acid 1.8 mmol/L (0.5-2.2) 09/30/24 09:56 Lactate 2.0 mmol/L (0.5-2.2) 10/06/24 18:31 Calcium 9.7 mg/dL (8.5-10.5) 10/08/24 09:24 Phosphorus 2.5 mg/dL (2.5-4.5) 10/02/24 05:54 Magnesium 2.0 mg/dL (1.7-2.3) 10/02/24 05:54 Iron 37 ug/dL (37-145) 10/01/24 04:14 Ferritin 152 ng/mL (15-150) H 10/01/24 04:14 Total Bilirubin 0.2 mg/dL (0.15-1.2) 10/08/24 09:24 AST 29 U/L (0-32) 10/08/24 09:24 ALT 38 U/L (0-33) H 10/08/24 09:24 Alkaline Phosphatase 133 U/L (35-105) H 10/08/24 09:24 C-Reactive Protein 67.9 mg/L (0.0-4.9) H 10/05/24 04:44 NT-Pro-B Natriuret Pep 465 pg/mL (0-125) H 09/29/24 13:56 Total Protein 8.3 g/dL (6.6-8.7) 10/08/24 09:24 Albumin 4.4 g/dL (3.5-5.2) 10/08/24 09:24 Globulin 3.9 g/dL (1.3-4.6) 10/08/24 09:24 Triglycerides 131 mg/dL (0-150) 09/29/24 13:56 Cholesterol 189 mg/dL (0-200) 09/29/24 13:56 LDL Cholesterol, Calc 115 mg/dL (50-129) 09/29/24 13:56 HDL Cholesterol 48 mg/dL (60-100) L 09/29/24 13:56 LDL/HDL Ratio 2.40 RATIO (0.00-3.22) 09/29/24 13:56 Cholesterol/HDL Ratio 3.94 mg/dL (0.0-4.40) 09/29/24 13:56 Lipase 87 U/L (13-60) H 09/29/24 13:56 Procalcitonin 0.12 ng/mL (0-0.5) 10/05/24 04:44 TSH 6.59 uIU/mL (0.27-4.20) H 09/29/24 13:56 Urine Color Yellow (Yellow) 09/29/24 14:06 Urine Appearance Clear (CLEAR) 09/29/24 14:06 Urine pH 6.0 (5-7) 09/29/24 14:06 Ur Specific [place] 1.018 (1.005-1.030) 09/29/24 14:06 Urine Protein Negative (Negative) 09/29/24 14:06 Urine Glucose (UA) Negative (Normal) 09/29/24 14:06 Urine Ketones Negative (Negative) 09/29/24 14:06 Urine Blood Negative (Negative) 09/29/24 14:06 Urine Nitrate Negative (Negative) 09/29/24 14:06 Urine Bilirubin Negative (Negative) 09/29/24 14:06 Urine Urobilinogen 0.2 mg/dL (Negative) 09/29/24 14:06 Ur Leukocyte Esterase Negative (Negative) 09/29/24 14:06 Urine RBC 0-2 /hpf (0-2) 09/29/24 14:06 Urine WBC 0-5 /hpf (0-5) 09/29/24 14:06 Ur Squamous Epith Cells 0-5 /hpf (0-5) 09/29/24 14:06 Amorphous Sediment Not Reportable 09/29/24 14:06 Urine Bacteria None seen /hpf (NONE) 09/29/24 14:06 Hyaline Casts 0.81 /lpf 09/29/24 14:06 Urine Osmolality 710 mOsm/kg (50-1200) 10/03/24 13:48 Ur Random Sodium 159 mmol/L 10/03/24 13:48 Vancomycin Trough 14.8 ug/mL (10-15) 10/01/24 08:51 Adenovirus (PCR) Not detected (NOT DETECT) 10/03/24 18:35 C. pneumoniae DNA (PCR) Not detected (NOT DETECT) 10/03/24 18:35 Coronavirus 229E (PCR) Not detected (NOT DETECT) 10/03/24 18:35 Human Metapneumovir PCR Not detected (NOT DETECT) 10/03/24 18:35 Influenza A (H1) PCR Not detected (NOT DETECT) 10/03/24 18:35 Influ A (H1/09) PCR Not detected (NOT DETECT) 10/03/24 18:35 Influenza A (H3) PCR Not detected (NOT DETECT) 10/03/24 18:35 Influenza Type A (PCR) Not detected (NOT DETECT) 10/03/24 18:35 Influenza Type B (PCR) Not detected (NOT DETECT) 10/03/24 18:35 M. pneumoniae (PCR) Not detected (NOT DETECT) 10/03/24 18:35 Parainfluenza 1 (PCR) Not detected (NOT DETECT) 10/03/24 18:35 Parainfluenza 2 (PCR) Not detected (NOT DETECT) 10/03/24 18:35 Parainfluenza 3 (PCR) Not detected (NOT DETECT) 10/03/24 18:35 Parainfluenza 4 (PCR) Not detected (NOT DETECT) 10/03/24 18:35 RSV Type A (PCR) Not detected (NOT DETECT) 10/03/24 18:35 RSV Type B (PCR) Not detected (NOT DETECT) 10/03/24 18:35 Entero/Rhino (PCR) Not detected (NOT DETECT) 10/03/24 18:35 SARS-CoV-2 (PCR) Not detected (NOT DETECT) 10/03/24 18:35 Blood Type O Positive 10/01/24 17:44 Rho(D) Type Rh positive 10/01/24 17:44 Antibody Screen Negative 10/01/24 17:44 Crossmatch See Detail 10/01/24 17:44 Vitals Last Vital Signs Temp 98.0 F 10/08/24 07:59 Pulse 86 10/08/24 07:59 Resp 16 10/08/24 07:59 BP 84/69 10/08/24 07:59 Pulse Ox 95 10/08/24 07:59 O2 Del Method Room Air 10/08/24 07:59 O2 Flow Rate 2 10/01/24 10:00 Discharge Plan Discharge Patient Disposition: Xfer SNF Condition: Stable Prescriptions: New acyclovir 400 mg Tablet 400 mg PO TID 5 Days Qty: 15 0RF amoxicillin-pot clavulanate 875-125 mg Tablet 1 tab PO BID 5 Days Qty: 10 0RF ciprofloxacin-dexamethasone 0.3-0.1 % Drops,Suspension 4 drp ear (left) BID 5 Days Qty: 7.5 0RF urea 15 gram/scoop powder 10 g PO DAILY Qty: 454 0RF Continued lamotrigine 200 mg tablet 400 mg feeding tube BID@08,20 rufinamide [Banzel] 400 mg tablet 1,400 mg feeding tube BID@08,20 magnesium hydroxide [Milk of Magnesia] 400 mg/5 mL suspension 30 ml peg-tube DAILY PRN (Reason: constipation) hydrocodone-acetaminophen 10-325 mg tablet 1 tab feeding tube BID PRN (Reason: Pain) levothyroxine 50 mcg tablet 50 mcg feeding tube DAILY white petrolatum-mineral oil 94-3 % Ointment 1 applic OPHTHALMIC (EYE) DAILY baclofen 5 mg tablet 5 mg feeding tube BID acetaminophen [Tylenol] 325 mg Tablet 650 mg feeding tube Q4H PRN (Reason: Pain) sennosides-docusate sodium [Senna-S] 8.6-50 mg Tablet 1 tab PO BID@08,20 Rx Instructions: MAY HOLD FOR LOOSE STOOLS famotidine 20 mg tablet 20 mg feeding tube BID@08,20 phenobarbital 30 mg tablet 60 mg feeding tube BID@08,20 levetiracetam 750 mg tablet 1,500 mg PO BID@08,20 lactulose 10 gram/15 mL solution 10 g feeding tube DAILY@08 Rx Instructions: may hold for loose stools Biofreeze (menthol) 4 % Gel See Rx Instructions .ROUTE .COMPLEX Rx Instructions: apply to left shoulder topically three times a day @09:00,14:00,21:00 bisacodyl 10 mg Suppository 10 mg NJ DAILY PRN (Reason: Constipation) nystatin 100,000 unit/gram cream See Rx Instructions .ROUTE .COMPLEX Rx Instructions: APPLY TO G-TUBE SITE TOPICALLY TWO TIMES A DAY FOR REDNESS TO G-TUBE SITE (CLEANSE G-TUBE SITE WITH NS PAT DRY APPLY A THIN FILM OF CREAM OVER WITH SPLIT SPONGE) [id number] Enema 19-7 gram/118 mL Enema 118 ml NJ DAILY PRN (Reason: Constipation) nystatin [[facility]] 100,000 unit/gram powder See Rx Instructions .ROUTE .COMPLEX Rx Instructions: APPLY TO GROIN/ABDOMINAL FOLDS TOPICALLY EVERY 12 HOURS NEEDED FOR REDNESS Discharge Orders: Discharge Order (Routine); Ordered 10/08/24 Ordered By: Andres Wong Referrals: [facility] [Outside] Omar Sampson MD [Physician, Ear, Nose, Throat] - 10/19/24 8:15 am Kelvin Naqvi Jr, MD [Primary Care Provider, [facility]] Discharge Diet: Regular Discharge Activity: Resume usual activity Patient Instructions: Ciprofloxacin (By mouth), Acyclovir (By mouth), Amoxicillin (By mouth), 14C-Urea (By mouth), Myringotomy with PE Tubes (DC), Opioid Safety, Post Anesthesia Care Activity Restrictions/Additional Instructions: - Decrease free water flushes to 100 cc every 8 hours - Monitor serum sodium weekly - Please recheck BMP tomorrow, potassium discharge 5.23 - Continue urea tablets - Follow-up with Dr. Sampson Discharge Attestations Time Spent in Discharge Care*: greater than 30 min Status at Discharge: Cognitive status at discharge: severely impaired cogn ition (At baseline however. ) , Quality Metrics Clinical Quality Measures [ No reported AMI, CVA or VTE this stay] Coding Level of Care Code 51663 Total time (in minutes) for Discharge: 45 Diagnoses Hyponatremia E87.1
--- NOTE | 2024-10-08 11:24 | PC.NURSE ---
Discharge Note Patient discharged to [facility] via ambulance accompanied by ambulance personnel. Discharge instructions reviewed with patient and/or surgical device sales representative. Mobile pharmacy medications and/or prescriptions provided. Belongings/home medications returned. Report called to [facility] to JOSHUA Coughlin. IV removed, Peg tube feeds disconnected and clamped. Patient placed in gown for transport and was checked. Brief was dry.
[2024-10-08 11:27] VITALS: BP 84/69; PULSE 86; RESP 18; TEMP 36.7; O2SAT 95
[2024-10-08] MEDS: sodium polystyrene sulfonate 15 gm/60 mL Btl PEG-TUBE (11:29)
== END 2024-10-08 11:29 | disposition intermediate care facility (04) | DRG 152 ==
LOC: ER 17:34 → ICU 23:02 → MEDSURG 10-01 21:05
PROVIDERS: Hospitalist; Specialist; Admitting Provider Family Medicine; Emergency Provider Family Medicine; PCP Family Medicine; Visit Provider Family Medicine
PROC: 099680Z Drainage of Left Middle Ear with Drainage Device, Via Natural or Artificial Opening Endoscopic (ICD-10-PCS; CPT 69420; principal; 2024-10-02 11:30)
DX: H70.92 Unspecified mastoiditis, left ear (principal); G80.0 Spastic quadriplegic cerebral palsy; E87.1 Hypo-osmolality and hyponatremia; G93.40 Encephalopathy, unspecified; B00.2 Herpesviral gingivostomatitis and pharyngotonsillitis; G40.909 Epilepsy, unspecified, not intractable, without status epilepticus; H60.92 Unspecified otitis externa, left ear; H66.92 Otitis media, unspecified, left ear; D64.89 Other specified anemias; E03.9 Hypothyroidism, unspecified; E87.6 Hypokalemia; Z93.1 Gastrostomy status
CPT/HCPCS: 36415; 36430; 70450; 70480; 71045; 71250; 72125; 74176; 74177; 80048; 80053; 80061; 80202; 81001; 82274; 82728; 83036; 83540; 83605; 83690; 83735; 83880; 83935; 84100; 84145; 84295; 84300; 84443; 85007; 85025; 85027; 85651; 86140; 86850; 86900; 86920; 87040; 87086; 87486; 87581; 87633; 94664; 94799; 96365; 96372; 96374; 96375; 96376; 99285; J0171; J0692; J0696; J1100; J1650; J2185; J2405; J2543; J2704; J3010; J3370; J3372; J3490; J7030; J7050; J7131; J8499; J9999; P9016; Q3014

== ENCOUNTER 2024-10-12 22:42 | Observation (INO) | payer MEDICARE, MEDICAID, SELFPAY ==
[2024-10-12 22:50] VITALS: BP 105/76; PULSE 120; RESP 20; TEMP 36.5; O2SAT 96
--- NOTE | 2024-10-12 22:59 | XRR_ITS ---
PROCEDURE INFORMATION: Exam: XR Chest Exam date and time: 10/12/2024 11:32 PM Age: 29 years old Clinical indication: Fever; Prior surgery; Surgery date: 6+ months; Surgery type: Tor rods, vagal nerve stimulator; Possible sepsis; Recent hospitalization; Cerebal palsy; Seizure disorder; HX tor rods & vagal nerve stimulator insertion TECHNIQUE: Imaging protocol: Radiologic exam of the chest. Views: 1 view. COMPARISON: [place] [id number] 10/03/2024 9:55 PM FINDINGS: Tubes, catheters and devices: Left chest wall neurostimulator with leads coursing cranially. Lungs: Low lung volumes. No focal consolidation or evidence of pulmonary edema. Pleural spaces: Unremarkable. No pleural effusion. No pneumothorax. Heart/Mediastinum: Unremarkable. No cardiomegaly. Bones/joints: Mild levoconvex curvature of the thoracolumbar spine with bilateral Reardon rods which appear intact within the field of view. XR/XR chest 1V portable [id number] IMPRESSION: No definite acute cardiopulmonary process.
--- NOTE | 2024-10-12 23:00 | ECG_ITS ---
[facility] Date: 2024[facility]12 Pat Name: Jennyfer Bliss Department: Room: Gender: Female Physicist Astrophysics: : 1995 Requested By: Adolph Vyas Order Number: [id number] Daphnie MD: JESSIE CHANDRA Measurements Intervals [place] Rate: 104 P: 251 AR: 365 QRS: 55 QRSD: 89 T: -77 QT: 351 QTc: 463 Interpretive Statements SINUS RHYTHM MODERATE T-WAVE ABNORMALITY, CONSIDER ANTEROLATERAL ISCHEMIA [-0.1+ mV T-WAVE IN V3-V6] Compared to ECG 05/06/2022 12:13:20 Sinus rhythm no longer present T-wave abnormality still present Possible ischemia still present Electronically Signed On 10-13-2024 16:24:56 CDT by JESSIE CHANDRA [email or web address]
--- NOTE | 2024-10-12 23:02 | W.ED.FEVER ---
HPI - Fever General: Chief Complaint: Fever Stated Complaint: AMS Time Seen by Provider: 10/12/24 22:56 History of Present Illness: 29-year-old female with cerebral palsy who presents emergency department with complaints of fever and concern for sepsis from [facility]. Apparently spiked a fever at the [facility] and they were able to break it with Tylenol but she has altered mental status apparently her baseline is that she will laugh and smile but she is not really awakening at this time. She will stir to painful stimuli. Related Data Home Medications ?Medication ?Instructions ?Recorded ?Confirmed lamotrigine 200 mg tablet 400 mg feeding tube BID@08,20 04/01/20 09/29/24 rufinamide 400 mg tablet (Banzel) 1,400 mg feeding tube BID@,04/01/20 09/29/24 acetaminophen 325 mg tablet 650 mg feeding tube Q4H PRN Pain 04/26/22 09/29/24 (Tylenol) famotidine 20 mg tablet 20 mg feeding tube BID@,04/26/22 09/29/24 lactulose 10 gram/15 mL oral 10 g feeding tube DAILY@08 04/26/22 09/29/24 solution levetiracetam 750 mg tablet 1,500 mg PO BID@,20 04/26/22 09/29/24 menthol 4 % topical gel (Biofreeze See Rx Instructions .Route .COMPLEX 04/26/22 09/29/24 (menthol)) phenobarbital 30 mg tablet 60 mg feeding tube BID@,20 04/26/22 09/29/24 sennosides 8.6 mg-docusate sodium 1 tab PO BID@,20 04/26/22 09/29/24 50 mg tablet (Senna-S) magnesium hydroxide 400 mg/5 mL 30 ml peg-tube DAILY PRN 05/06/22 09/29/24 oral suspension (Milk of Magnesia) constipation bisacodyl 10 mg rectal suppository 10 mg DE DAILY PRN Constipation 03/02/23 09/29/24 nystatin 100,000 unit/gram topical See Rx Instructions .Route .COMPLEX 03/02/23 09/29/24 cream nystatin 100,000 unit/gram topical See Rx Instructions .Route .COMPLEX 03/02/23 09/29/24 powder (Nyamyc) sodium phosphates 19 gram-7 118 ml DE DAILY PRN Constipation 03/02/23 09/29/24 gram/118 mL enema (Cejav-Go-Tkb Enema) baclofen 5 mg tablet 5 mg feeding tube BID 09/29/24 09/29/24 hydrocodone 10 mg-acetaminophen 1 tab feeding tube BID PRN Pain 09/29/24 09/29/24 325 mg tablet levothyroxine 50 mcg tablet 50 mcg feeding tube DAILY 09/29/24 09/29/24 white petrolatum-mineral oil 94 1 applic ophthalmic (eye) DAILY 09/29/24 09/29/24 %-3 % eye ointment Previous Rx's ?Medication ?Instructions ?Recorded acyclovir 400 mg tablet 400 mg PO TID 5 days #15 tabs 10/08/24 amoxicillin 875 mg-potassium 1 tab PO BID 5 days #10 tabs 10/08/24 clavulanate 125 mg tablet ciprofloxacin 0.3 %-dexamethasone 4 drp ear (left) BID 5 days #7.5 mL 10/08/24 0.1 % ear drops,suspension urea 15 gram/scoop oral powder 10 g PO DAILY #454 grams 10/08/24 Allergies Allergy/AdvReac Type Severity Reaction Status Date / Time diphenhydramine (From Allergy ADR-Seizure Verified 06/13/23 07:12 Benadryl) [facility] PFSH: Medical History (Updated 10/13/24 @ 02:08 by Adolph Vyas MD) Hyponatremia Acute hyponatremia Hypothyroidism Panhypopituitarism Perforated tympanic membrane Seizure disorder Cerebral palsy Surgical History Status post VNS (vagus nerve stimulator) placement ? S/P percutaneous endoscopic gastrostomy (PEG) tube placement Family History Other Diabetes Hyperlipidemia Social History Smoking and tobacco/nicotine status: never used tobacco/nicotine Alcohol intake: never Substance/Drug Use: never Caregiver/support person: Yes Lives independently: No Household members: other Housing: [facility] Physical Exam Const: OTHER: Contracted and somnolent have cerebral palsy at baseline. HENMT: OTHER: Dry oral mucosa. Pupils reactive. Resp: OTHER: No apparent respiratory distress Cardio: OTHER: Heart rate and rhythm is regular. Lungs bilateral clear to auscultation GI: OTHER: Feeding tube in place. Abdomen is soft. Neuro: OTHER: Baseline is only smiling and laughing due to cerebral palsy. Currently somnolent and will start to painful stimuli. Chronically contracted. Skin: OTHER: No rash noted Course Vital Signs: Vital signs: Vital Signs Temperature 97.7 F 10/12/24 22:50 Pulse Rate 95 10/13/24 00:00 Respiratory Rate 16 10/13/24 00:00 Blood Pressure 102/70 10/13/24 00:00 Pulse Oximetry 100 10/13/24 00:00 Oxygen Delivery Me thod Room Air 10/13/24 00:00 MDM - Fever Medical Decision Making Patient presents emerged part with complaint of fever and altered mental status. Patient's baseline is uncertain but according to [facility] she can smile and laugh. She is more somnolent now. She is afebrile. She has no leukocytosis but she does have elevated lactic acid. She will respond to painful stimuli. Patient started empirically on antibiotics. CT chest and abdomen and pelvis showed no acute disease. CT of the head shows some modest improvement of left mastoiditis. Uncertain if this is the cause of her symptoms but loaded patient to the hospitalist for further evaluation and treatment. Lab Data 10/12/24 23:16 10/12/24 23:16 Radiology Impressions Chest X-Ray 10/12/24 22:59 IMPRESSION: No definite acute cardiopulmonary process. Chest/Abdomen/Pelvis CT 10/13/24 00:53 IMPRESSION: No acute findings. IMPRESSION: No acute findings. Head CT 10/13/24 01:14 IMPRESSION: Modest improvement with left mastoiditis. Laboratory Results WBC 6.27 10^3/uL (3.29-11.43) 10/12/24 23:16 RBC 3.79 10^6/uL (3.85-5.65) L 10/12/24 23:16 Hgb 11.50 g/dL (11.27-16.99) 10/12/24 23:16 Hct 35.0 % (36-47) L 10/12/24 23:16 MCV 92.3 fl (85-98) 10/12/24 23:16 MCH 30.3 pg (27-33) 10/12/24 23:16 MCHC 32.9 g/dL (30-55) 10/12/24 23:16 RDW 14.1 % (12.1-15.1) 10/12/24 23:16 Plt Count 400 10^3/cmm (157-399) H 10/12/24 23:16 MPV 9.4 fL (7.4-10.4) 10/12/24 23:16 Neut % (Auto) 33.8 % 10/12/24 23:16 Lymph % (Auto) 55.3 % 10/12/24 23:16 [place] % (Auto) 8.1 % 10/12/24 23:16 Eos % (Auto) 0.6 % 10/12/24 23:16 Baso % (Auto) 0.8 % 10/12/24 23:16 Neut # (Auto) 2.11 10^3/uL (1.8-7.7) 10/12/24 23:16 Lymph # (Auto) 3.5 10^3/uL (0.8-4.8) 10/12/24 23:16 [place] # (Auto) 0.5 10^3/uL (0.2-0.9) 10/12/24 23:16 Eos # (Auto) 0.0 10^3/uL (0.0-0.8) 10/12/24 23:16 Baso # (Auto) 0.1 10^3/uL (0.0-0.1) 10/12/24 23:16 Nucleated RBC % (auto) 0 % 10/12/24 23:16 Nucleated RBCs # 0.0 /100WBC 10/12/24 23:16 ESR 39 mm/hr (0-15) H 10/12/24 23:16 Sodium 135 mmol/L (136-145) L 10/12/24 23:16 Potassium 3.5 mmol/L (3.5-5.1) 10/12/24 23:16 Chloride 96 mmol/L (98-107) L 10/12/24 23:16 Carbon Dioxide 23 mmol/L (22-29) 10/12/24 23:16 Anion Gap 19.5 (5-19) H 10/12/24 23:16 BUN 9 mg/dL (6-20) 10/12/24 23:16 Creatinine 0.6 mg/dL (0.5-0.9) 10/12/24 23:16 GFR Calculation 118.2 mL/min (90-130) 10/12/24 23:16 Glucose 118 mg/dL (65-115) H 10/12/24 23:16 Calculated Osmolality 280 mOsm/kg (285-295) L 10/12/24 23:16 Lactic Acid 4.2 mmol/L (0.5-2.2) H* 10/12/24 23:16 Calcium 9.7 mg/dL (8.5-10.5) 10/12/24 23:16 Total Bilirubin 0.2 mg/dL (0.15-1.2) 10/12/24 23:16 AST 30 U/L (0-32) 10/12/24 23:16 ALT 31 U/L (0-33) 10/12/24 23:16 Alkaline Phosphatase 165 U/L (35-105) H 10/12/24 23:16 C-Reactive Protein 12.3 mg/L (0.0-4.9) H 10/12/24 23:16 Total Protein 8.7 g/dL (6.6-8.7) 10/12/24 23:16 Albumin 4.6 g/dL (3.5-5.2) 10/12/24 23:16 Globulin 4.1 g/dL (1.3-4.6) 10/12/24 23:16 Procalcitonin 0.03 ng/mL (0-0.5) 10/12/24 23:16 Urine Color Yellow (Yellow) 10/13/24 00:43 Urine Appearance Clear (CLEAR) 10/13/24 00:43 Urine pH 6.5 (5-7) 10/13/24 00:43 Ur Specific [place] 1.024 (1.005-1.030) 10/13/24 00:43 Urine Protein 1+ (Negative) A 10/13/24 00:43 Urine Glucose (UA) Negative (Normal) 10/13/24 00:43 Urine Ketones Negative (Negative) 10/13/24 00:43 Urine Blood Negative (Negative) 10/13/24 00:43 Urine Nitrate Negative (Negative) 10/13/24 00:43 Urine Bilirubin Negative (Negative) 10/13/24 00:43 Urine Urobilinogen 1.0 mg/dL (Negative) 10/13/24 00:43 Ur Leukocyte Esterase Negative (Negative) 10/13/24 00:43 Urine RBC 0-2 /hpf (0-2) 10/13/24 00:43 Urine WBC 0-5 /hpf (0-5) 10/13/24 00:43 Ur Squamous Epith Cells 0-5 /hpf (0-5) 10/13/24 00:43 Amorphous Sediment Not Reportable 10/13/24 00:43 Urine Bacteria None seen /hpf (NONE) 10/13/24 00:43 Hyaline Casts 4.52 /lpf 10/13/24 00:43 Influenza A (PCR) Negative (Negative) 10/12/24 23:27 Influenza Type B (PCR) Negative (Negative) 10/12/24 23:27 RSV (PCR) Negative (Negative) 10/12/24 23:27 SARS-CoV-2 (PCR) Negative (Negative) 10/12/24 23:27 All radiology interpretation(s) finalized by discharge Discharge Plan Discharge Patient Disposition: Admitted As Inpatient Clinical Impression: Acute mastoiditis Qualifiers: Laterality: unspecified laterality Qualified Code(s): H70.009 - Acute mastoiditis without complications, unspecified ear Condition: Stable Coding Level of Care Code ED National Coverage Specialist for Lobito Paula
[2024-10-12 23:29] VITALS: BP 113/86; PULSE 92; RESP 16; O2SAT 99
[2024-10-12] MEDS: sodium chloride 0.9% 1,710 ML 1710 ML IV (23:40)
[2024-10-12 23:58] LABS: Basophils # 0.1 10^3/uL (0.0-0.1); Basophils % 0.8 %; Eosinophils % 0.6 %; Lymphocytes # 3.5 10^3/uL (0.8-4.8); Lymphocytes % 55.3 %; Mean Corpuscular HGB Conc 32.9 g/dL (30-55); Mean Corpuscular Hemoglobin 30.3 pg (27-33); Mean Corpuscular Volume 92.3 fl (85-98); Mean Platelet Volume 9.4 fL (7.4-10.4); Monocytes # 0.5 10^3/uL (0.2-0.9); Monocytes % 8.1 %; Neutrophils # 2.11 10^3/uL (1.8-7.7); Neutrophils % 33.8 %; Nucleated Red Blood Cells % 0 %; Platelet Count 400 10^3/cmm (157-399); Red Blood Count 3.79 10^6/uL (3.85-5.65); Red Cell Distribution Width 14.1 % (12.1-15.1); White Blood Count 6.27 10^3/uL (3.29-11.43)
[2024-10-12 23:59] LABS: Alanine Aminotransferase 31 U/L (0-33); Albumin Level 4.6 g/dL (3.5-5.2); Alkaline Phosphatase 165 U/L (35-105); Anion Gap 19.5 (5-19); Aspartate Amino Transferase 30 U/L (0-32); Blood Urea Nitrogen 9 mg/dL (6-20); Calcium 9.7 mg/dL (8.5-10.5); Carbon Dioxide 23 mmol/L (22-29); Chloride 96 mmol/L (98-107); Globulin 4.1 g/dL (1.3-4.6); Glomerular Filtration Rate 118.2 mL/min (90-130); Glucose 118 mg/dL (65-115); Osmolality Calculated 280 mOsm/kg (285-295); Potassium 3.5 mmol/L (3.5-5.1); Sodium 135 mmol/L (136-145); Total Bilirubin 0.2 mg/dL (0.15-1.2); Total Protein 8.7 g/dL (6.6-8.7)
[2024-10-13] VITALS (12 sets, daily range): BP systolic 80–146; BP diastolic 56–80; PULSE 83–104; RESP 15–19; TEMP 36.5–37.2; O2SAT 91–100
[2024-10-13 00:06] LABS: Lactic Sepsis W/Reflex 4.2 mmol/L (0.5-2.2)
[2024-10-13 00:13] LABS: Influenza A NEGATIVE (Negative); Influenza B NEGATIVE (Negative); Respiratory Syncytial Virus Ce NEGATIVE (Negative); SARS-CoV-2 PCR NEGATIVE (Negative)
[2024-10-13 00:51] LABS: Bilirubin Urine Negative (Negative); Blood Urine Negative (Negative); Glucose Urine UA Negative (Normal); Ketones Urine Negative (Negative); Leukocyte Esterase Urine Negative (Negative); Nitrate Urine Negative (Negative); Protein Urine 1+ (Negative); Specific Gravity, Urine 1.024 (1.005-1.030); Urine Appearance Clear (CLEAR); Urine Color Yellow (Yellow); pH Urine 6.5 (5-7)
--- NOTE | 2024-10-13 00:53 | CTR_ITS ---
PROCEDURE INFORMATION: Exam: CT Chest With Contrast; Diagnostic Exam date and time: 10/13/2024 1:06 AM Age: 29 years old Clinical indication: Abnormal findings; Abnormal lab test; Other: Elevated lactic acid; Other: N/a; Prior surgery; Surgery date: 6+ months; Surgery type: Vagus nerve stimulator. Reardon carmelo; Fever with lactic acid of 4.2. TECHNIQUE: Imaging protocol: Diagnostic computed tomography of the chest with contrast. Radiation optimization: All CT scans at this facility use at least one of these dose optimization techniques: automated exposure control; mA and/or kV adjustment per patient size (includes targeted exams where dose is matched to clinical indication); or iterative reconstruction. Contrast material: OMNI 350; Contrast volume: 80 ml; Contrast route: INTRAVENOUS (IV); COMPARISON: [place] [id number] 10/03/2024 9:55 PM RADIATION DOSE METRICS: Total DLP (mGy-cm): 1162.78 FINDINGS: Lungs: Unremarkable. No consolidation. No masses. Pleural spaces: Unremarkable. No pneumothorax. No pleural effusion. Heart: Unremarkable. No cardiomegaly. No pericardial effusion. Lymph nodes: Unremarkable. No enlarged lymph nodes. Vasculature: Unremarkable. No aortic aneurysm. Bones/joints: Extensive postsurgical change. No acute fracture. Soft tissues: Unremarkable. PROCEDURE INFORMATION: Exam: CT Abdomen And Pelvis With Contrast Exam date and time: 10/13/2024 1:06 AM Age: 29 years old Clinical indication: Abnormal findings; Abnormal lab test; Other: Elevated lactic acid; Other: N/a; Prior surgery; Surgery date: 6+ months; Surgery type: Vagus nerve stimulator. Reardon carmelo; Fever with lactic acid of 4.2. TECHNIQUE: Imaging protocol: Computed tomography of the abdomen and pelvis with contrast. Radiation optimization: All CT scans at this facility use at least one of these dose optimization techniques: automated exposure control; mA and/or kV adjustment per patient size (includes targeted exams where dose is matched to clinical indication); or iterative reconstruction. Contrast material: OMNI 350; Contrast volume: 80 ml; Contrast route: INTRAVENOUS (IV); COMPARISON: CT abdomen pelvis w con* [id number] 09/29/2024 2:24 PM RADIATION DOSE METRICS: Total DLP (mGy-cm): 1162.78 FINDINGS: Liver: Normal. No mass. Gallbladder and biliary ducts: Normal. No calcified stones. No ductal dilation. Pancreas: Normal. No ductal dilation. Spleen: Normal. No splenomegaly. Adrenal glands: Normal. No mass. Kidneys and ureters: Normal. No hydronephrosis. Stomach and bowel: Gastrostomy. No obstruction. No mucosal thickening. Appendix: No evidence of appendicitis. Intraperitoneal space: Unremarkable. No free air. No significant fluid collection. Vasculature: Unremarkable. No abdominal aortic aneurysm. Lymph nodes: Unremarkable. No enlarged lymph nodes. Urinary bladder: Unremarkable as visualized. Reproductive: Unremarkable as visualized. Bones/joints: Extensive postsurgical change. No acute fracture. Soft tissues: Unremarkable. CT/CT chest abdpel w/*[id number] IMPRESSION: No acute findings. IMPRESSION: No acute findings.
--- NOTE | 2024-10-13 00:54 | P.HP_ITS ---
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 Patient seen evaluated emergency department room 6. She is awake but unable to provide any history. Collateral information obtained from ED provider and ED nurse. Patient is reportedly nonverbal at baseline. She is from a nursing facility. Chart review shows recent admission for acute encephalopathy, left acute otitis media, left mastoiditis, multiple metabolic derangements. Cultures remain negative that admission. She underwent myringotomy tube placement during this admission. She was treated with antibiotics and discharged on p.o. antibiotics and Ciprodex drops on 10/08. It was noted that her hospital course was complicated by persistent fevers. In the emergency department, patient was found to be afebrile. Her heart rate was initially tachycardic up to 120. Blood pressure within normal range. CBC showed thrombocytosis. Labs with mild hyponatremia, lactic acidosis to 4.2, and slightly elevated alkaline phosphatase. Urinalysis unremarkable. RSV PCR, COVID-19 PCR, and rapid flu A&B PCR negative. Chest x-ray unremarkable. CT chest abdomen pelvis pending. Review of Systems 2 General: Reports: ROS unobtainable due to mental status Medications/Allergies Home Medications ?Medication ?Instructions ?Recorded ?Confirmed ?Last Taken ?Type lamotrigine 200 mg tablet 400 mg feeding tube BID@08,2 0 04/01/20 09/29/24 09/29/24 08:45 History rufinamide 400 mg tablet (Banzel) 1,400 mg feeding tub e BID@04/01/20 09/29/24 09/29/24 08:45 History acetaminophen 325 mg tablet 650 mg feeding tube Q4H MI N Pain 04/26/22 09/29/24 09/27/24 01:30 History (Tylenol) famotidine 20 mg tablet 20 mg feeding tube BID@04/26/22 09/29/24 09/29/24 08:45 History lactulose 10 gram/15 mL oral 10 g feeding tube DAILY@0 8 04/26/22 09/29/24 09/29/24 08:45 History solution levetiracetam 750 mg tablet 1,500 mg PO BID@08,20 11/2 06/2709/29/24 09/29/24 08:45 History menthol 4 % topical gel (Biofreeze See Rx Instructions .Route .COMPLEX 04/26/22 09/29/24 09/29/24 08:25 History (menthol)) phenobarbital 30 mg tablet 60 mg feeding tube BID@,2 0 04/26/22 09/29/24 09/29/24 08:45 History sennosides 8.6 mg-docusate sodium 1 tab PO BID@,20 1 06/26/21 09/29/24 09/29/24 08:45 History 50 mg tablet (Senna-S) magnesium hydroxide 400 mg/5 mL 30 ml peg-tube DAILY P RN 05/06/22 09/29/24 08/25/24 13:35 History oral suspension (Milk of Magnesia) constipation bisacodyl 10 mg rectal suppository 10 mg MI DAILY PRN Constipation 03/02/23 09/29/24 07/08/24 16:35 History nystatin 100,000 unit/gram topical See Rx Instructions .Route .COMPLEX 03/02/23 09/29/24 Unknown History cream nystatin 100,000 unit/gram topical See Rx Instructions .Route .COMPLEX 03/02/23 09/29/24 Unknown History powder ([facility]) sodium phosphates 19 gram-7 118 ml MI DAILY PRN Consti pation 03/02/23 09/29/24 04/27/24 19:10 History gram/118 mL enema (Rpqea-Hb-Cxa Enema) baclofen 5 mg tablet 5 mg feeding tube BID 09/29/24 09/29/24 08:45 History hydrocodone 10 mg-acetaminophen 1 tab feeding tube BID PRN Pain 09/29/24 09/29/24 09/29/24 08:45 History 325 mg tablet levothyroxine 50 mcg tablet 50 mcg feeding tube DAILY 09/29/24 09/29/24 09/29/24 08:45 History white petrolatum-mineral oil 94 1 applic ophthalmic (e ye) DAILY 09/29/24 09/29/24 09/28/24 17:00 History %-3 % eye ointment acyclovir 400 mg tablet 400 mg PO TID 5 days #15 tab s 10/08/24 Unknown Rx amoxicillin 875 mg-potassium 1 tab PO BID 5 days #10 t abs 10/08/24 Unknown Rx clavulanate 125 mg tablet ciprofloxacin 0.3 %-dexamethasone 4 drp ear (left) BID 5 days #7.5 mL 10/08/24 Unknown Rx 0.1 % ear drops,suspension urea 15 gram/scoop oral powder 10 g PO DAILY #454 gram s 10/08/24 Unknown Rx Allergies Allergy/AdvReac Type Severity Reaction Status Date / Time diphenhydramine (From Allergy ADR-Seizure Verified 06/13/23 07:12 Benadryl) PFSH Acute 2 PFSH: Medical History (Updated 10/13/24 @ 01:14 by Gregorio Ivey MD) Hyponatremia Acute hyponatremia Hypothyroidism Panhypopituitarism Perforated tympanic membrane Seizure disorder Cerebral palsy Surgical History Status post VNS (vagus nerve stimulator) placement ? S/P percutaneous endoscopic gastrostomy (PEG) tube placement Family History Other Diabetes Hyperlipidemia Social History Smoking and tobacco/nicotine status: never used tobacco/nicotine Alcohol intake: never Substance/Drug Use: never Caregiver/support person: Yes Lives independently: No Household members: other Housing: [place] Vitals/I&O/Wt Last Vital Signs Temp 97.7 F 10/12/24 22:50 Pulse 95 10/13/24 00:00 Resp 16 10/13/24 00:00 BP 102/70 10/13/24 00:00 Pulse Ox 100 10/13/24 00:00 O2 Del Method Room Air 10/13/24 00:00 10/12/24 10/12/24 10/13/24 14:59 22:59 06:59 Intake Total 0 / 0 Balance 0 / 0 Physical Exam 2 Narrative: General: Patient is awake. Chronically ill-appearing. Head: Eyes open. Neck: No JVD. Cardiovascular: RRR. No gallops. Lungs: Clear to auscultation, no use of accessory muscles, no crackles or wheezes. Skin: No jaundice. No rashes. Abdomen: Hypoactive bowel sounds. Nontender. Genito Urinary: Genital exam not performed since complaints not related. Rectal: Rectal exam not performed since no symptoms indicated blood loss. Extremities: No cyanosis or clubbing. Musculoskeletal: Poor muscular development. Neurological: Contractures of all 4 extremities. Urinary Catheter Management: [place]: Cath Placed During This Visit: yes Urinary Catheter Date of Insertion: 10/13/24 Data 10/12/24 23:16 10/12/24 23:16 Micro: Microbiology 10/12/24 23:22 Blood Culture - Preliminary Blood SPECIMEN COLLECTED 10/12/24 23:16 Blood Culture - Preliminary Blood SPECIMEN COLLECTED A&P Assessment and plan (1) Fever: (2) Thrombocytosis: (3) Hyponatremia: (4) Lactic acidosis: (5) Seizure disorder: (6) Cerebral palsy: Plan Reported fever Lactic acidosis Thrombocytosis - Presentation concerning for infection - Recent admission was complicated by persistent fevers - If fevers persistent, consider echocardiography - Patient's chronic cerebral palsy/nonverbal state limits history - Recent otitis media/left mastoiditis status post myringotomy tube noted - Will check head CT for complications of mastoiditis - CT chest abdomen pelvis to look for alternative source of infection ordered - Monitor fever curve, hemodynamics closely - Screen for MRSA - Check procalcitonin, CRP, ESR - Status post sepsis bolus of IVF - Continue broad-spectrum antibiotics with cefepime and vancomycin for now while further work up is pending HSV stomatitis - Continue acyclovir Dysphagia - Can likely start tube feeds in the a.m. pending CT scan results History of cerebral palsy Quadriplegia with chronic contractures of extremities Dependent in ADLs - Continue home medications History of seizure disorder - Elevated lactate can be seen with seizures - Maintain seizure precautions - Continue home AED History of hyponatremia -Monitor renal panel DVT ppx: Heparin Code: Assume Full PDMP PDMP Reviewed: Not Reviewed Attestations 2 Medical Necessity Statement*: Patient presents with reported fever and lethargy, concerning for underlying infection in setting of recent hospitalization expected hospital course not to cross 2 midnights for monitoring hemodynamics, fever curve, IV antibiotics, and further workup. Coding Level of Care Code Acute Code for Chg Fwd Diagnoses Fever R50.9 Thrombocytosis D75.839 Hyponatremia E87.1 Lactic acidosis E87.20 Seizure disorder G40.909 Cerebral palsy, unspecified type G80.9
[2024-10-13 00:55] LABS: Add Urine Microscopic? YES; Bacteria Urine None Seen /hpf; Hyaline Casts Urine 4.52 /lpf; RBC Urine 0-2 /hpf (0-2); Squamous Epithelial Cell Urine 0-5 /hpf (0-5); WBC Urine 0-5 /hpf (0-5)
[2024-10-13] MEDS: VANCOMYCIN ADD-Vantage 1,000 MG in 0.9% NaCl ADD-Vantage 250 ML 250 MG IV ×3 (01:01→18:35)
[2024-10-13] MEDS: cefTRIAXone 1,000 mg SDV 1000 MG IVP (01:01)
--- NOTE | 2024-10-13 01:14 | CTR_ITS ---
PROCEDURE INFORMATION: Exam: CT Head Without Contrast Exam date and time: 10/13/2024 1:19 AM Age: 29 years old Clinical indication: Patient diagnosed with left sided mastoiditis last week. Patient non verbal. ; Additional info: Evaluate left mastoiditis TECHNIQUE: Imaging protocol: Computed tomography of the head without contrast. Radiation optimization: All CT scans at this facility use at least one of these dose optimization techniques: automated exposure control; mA and/or kV adjustment per patient size (includes targeted exams where dose is matched to clinical indication); or iterative reconstruction. COMPARISON: CT head wo con* [id number] 10/03/2024 9:55 PM RADIATION DOSE METRICS: Total DLP (mGy-cm): 1129.44 FINDINGS: Brain: No acute pathology. Cerebral ventricles: No ventriculomegaly. Paranasal sinuses: Visualized sinuses are unremarkable. No fluid levels. Mastoid air cells: Modest interval improvement in extensive changes of left otomastoiditis. There is slightly more aeration of the left mastoid air cells and there is somewhat less debris within the external auditory canal. No evidence of intracranial extension.. Bones: Unremarkable. No acute fracture. Soft tissues: Unremarkable. CT/CT head wo con* [id number] IMPRESSION: Modest improvement with left mastoiditis.
[2024-10-13 01:19] LABS: Reflex Lactate Order REFLEX LACTIC ORDERD
[2024-10-13] MEDS: iohexol 350 mg/mL 500 mL Btl (per mL) IV (01:25)
[2024-10-13 01:41] LABS: Erythrocyte Sedimentation Rate 39 mm/hr (0-15)
[2024-10-13 02:00] LABS: C Reactive Protein 12.3 mg/L (0.0-4.9)
[2024-10-13 02:06] LABS: Procalcitonin 0.03 ng/mL (0-0.5)
[2024-10-13 02:40] LABS: Lactic Acid level (Lactate) 2.9 mmol/L (0.5-2.2)
[2024-10-13] MEDS: cefepime 1,000 mg SDV 1000 MG IVP ×3 (04:18→21:28)
[2024-10-13 05:58] LABS: MRSA PCR OZH (swab) MRSA Detected (Not Detecte)
--- NOTE | 2024-10-13 07:57 | PHA.VACGOAL ---
Vancomycin Goal - Goal Vancomycin Goal:: 15-20 mg/L Vancomycin Indication:: Other (SEPSIS) - Therapy Current therapy:: Cefepime Day of therpy:: Day []of [] . Actual body weight (kg): 155 lb 1.6 oz - Data Labs: WBC 6.27 10^3/uL (3.29-11.43) 10/12/24 23:16 RBC 3.79 10^6/uL (3.85-5.65) L 10/12/24 23:16 Hgb 11.50 g/dL (11.27-16.99) 10/12/24 23:16 Hct 35.0 % (36-47) L 10/12/24 23:16 MCV 92.3 fl (85-98) 10/12/24 23:16 MCH 30.3 pg (27-33) 10/12/24 23:16 MCHC 32.9 g/dL (30-55) 10/12/24 23:16 RDW 14.1 % (12.1-15.1) 10/12/24 23:16 Sodium 135 mmol/L (136-145) L 10/12/24 23:16 Potassium 3.5 mmol/L (3.5-5.1) 10/12/24 23:16 Chloride 96 mmol/L (98-107) L 10/12/24 23:16 Carbon Dioxide 23 mmol/L (22-29) 10/12/24 23:16 Anion Gap 19.5 (5-19) H 10/12/24 23:16 BUN 9 mg/dL (6-20) 10/12/24 23:16 Creatinine 0.6 mg/dL (0.5-0.9) 10/12/24 23:16 GFR Calculation 118.2 mL/min (90-130) 10/12/24 23:16 Last dialysis session:: N/A Treatment plan:: new consult Regimen:: TELEPHARMACY: 1G Q8H ORDERED. FIRST DOSE IN ER OF 1G 10/13 @ 0300. TOUGH ORDERED 10/14 @ 0200 Follow up:: WILL CONTINUE TO MONITOR AND FOLLOW UP DAILY.
--- NOTE | 2024-10-13 08:15 | PC.PHAR ---
Pt is on antibiotic and anti viral through 10/13/24
[2024-10-13] MEDS: levothyroxine 50 mcg Tablet PEG-TUBE (08:41)
[2024-10-13] MEDS: lactulose oral liq 20 gm/30 mL UDC 10 GM PEG-TUBE (08:41)
[2024-10-13] MEDS: lamoTRIgine 100 mg Tablet 400 MG PEG-TUBE ×2 (08:41→21:28)
[2024-10-13] MEDS: famotidine 20 mg Tablet PEG-TUBE ×2 (08:41→21:28)
[2024-10-13] MEDS: acyclovir 400 mg Tablet PEG-TUBE ×3 (08:41→21:28)
[2024-10-13] MEDS: baclofen 10 mg Tablet 5 MG PEG-TUBE ×2 (08:41→17:09)
[2024-10-13] MEDS: levETIRAcetam 500 MG/5 ML UDC 1500 MG PEG-TUBE ×2 (08:42→21:27)
[2024-10-13] MEDS: sennosides-docusate Tablet 1 TAB PO ×2 (08:42→21:28)
--- NOTE | 2024-10-13 11:54 | PC.NUTR ---
Attempted but unable to connect with [facility]. When medically appropriate, recommend Jevity 1.5 beginning @ 15mls/hr, increasing 10mls Q4-8H, with goal rate of 35mls/hr and FWF of 100mls Q4H or per MD discretion.
[2024-10-13 12:20] LABS: Basophils # 0.1 10^3/uL (0.0-0.1); Basophils % 0.9 %; Eosinophils # 0.1 10^3/uL (0.0-0.8); Eosinophils % 0.9 %; Hematocrit 32.7 % (36-47); Lymphocytes # 3.5 10^3/uL (0.8-4.8); Lymphocytes % 54.4 %; Mean Corpuscular HGB Conc 31.5 g/dL (30-55); Mean Corpuscular Hemoglobin 29.8 pg (27-33); Mean Corpuscular Volume 94.5 fl (85-98); Mean Platelet Volume 9.1 fL (7.4-10.4); Monocytes # 0.7 10^3/uL (0.2-0.9); Monocytes % 10.6 %; Neutrophils # 2.07 10^3/uL (1.8-7.7); Neutrophils % 32.3 %; Nucleated Red Blood Cells % 0 %; Platelet Count 368 10^3/cmm (157-399); Red Blood Count 3.46 10^6/uL (3.85-5.65); Red Cell Distribution Width 13.9 % (12.1-15.1); White Blood Count 6.43 10^3/uL (3.29-11.43)
[2024-10-13 12:36] LABS: Albumin Level 4.2 g/dL (3.5-5.2); Anion Gap 19.1 (5-19); Blood Urea Nitrogen 7 mg/dL (6-20); Calcium 9.3 mg/dL (8.5-10.5); Carbon Dioxide 20 mmol/L (22-29); Chloride 99 mmol/L (98-107); Creatinine Clr Calc Pharmacy 163.3848; Glomerular Filtration Rate 145.9 mL/min (90-130); Glucose 91 mg/dL (65-115); Phosphorus 3.6 mg/dL (2.5-4.5); Potassium 4.1 mmol/L (3.5-5.1); Sodium 134 mmol/L (136-145)
--- NOTE | 2024-10-13 14:02 | PC.NURSE ---
Aury. I called to see what tube feeding patient was getting, patient takes Osmolite 1.5 35ml/23hrs with 100ml free water q6hrs. Notified DR Chadwick. There is no Osmolite hospital wide so I notified by [facility].
[2024-10-13] MEDS: dextrose 5%-sod chloride 0.45% 1,000 ML 75 ML IV (21:38)
[2024-10-14 01:57] LABS: Basophils # 0.1 10^3/uL (0.0-0.1); Basophils % 1.8 %; Eosinophils # 0.1 10^3/uL (0.0-0.8); Eosinophils % 1.8 %; Hematocrit 31.8 % (36-47); Lymphocytes # 2.6 10^3/uL (0.8-4.8); Lymphocytes % 60.2 %; Mean Corpuscular HGB Conc 32.4 g/dL (30-55); Mean Corpuscular Volume 92.7 fl (85-98); Mean Platelet Volume 8.9 fL (7.4-10.4); Monocytes # 0.6 10^3/uL (0.2-0.9); Monocytes % 13.6 %; Neutrophils % 21.9 %; Nucleated Red Blood Cells % 0 %; Platelet Count 330 10^3/cmm (157-399); Red Blood Count 3.43 10^6/uL (3.85-5.65); Red Cell Distribution Width 14.1 % (12.1-15.1); White Blood Count 4.35 10^3/uL (3.29-11.43)
[2024-10-14 02:15] LABS: Vancomycin Trough 18.6 ug/mL (10-15)
[2024-10-14 02:16] LABS: Albumin Level 4.2 g/dL (3.5-5.2); Anion Gap 16.5 (5-19); Blood Urea Nitrogen 7 mg/dL (6-20); Calcium 9.1 mg/dL (8.5-10.5); Carbon Dioxide 22 mmol/L (22-29); Chloride 102 mmol/L (98-107); Creatinine Clr Calc Pharmacy 163.3848; Glomerular Filtration Rate 145.9 mL/min (90-130); Glucose 85 mg/dL (65-115); Phosphorus 4.3 mg/dL (2.5-4.5); Potassium 4.5 mmol/L (3.5-5.1); Sodium 136 mmol/L (136-145)
[2024-10-14 02:32] LABS: Neutrophils # 0.95 10^3/uL (1.8-7.7)
[2024-10-14] MEDS: VANCOMYCIN ADD-Vantage 1,000 MG in 0.9% NaCl ADD-Vantage 250 ML 250 MG IV ×2 (03:36→10:47)
[2024-10-14] MEDS: cefepime 1,000 mg SDV 1000 MG IVP ×2 (03:36→13:22)
[2024-10-14 03:46] VITALS: BP 102/54; PULSE 81; RESP 15; TEMP 36.7; O2SAT 98
[2024-10-14 07:24] VITALS: BP 94/72; PULSE 82; RESP 14; TEMP 36.6; O2SAT 96
[2024-10-14] MEDS: levETIRAcetam 500 MG/5 ML UDC 1500 MG PEG-TUBE ×2 (08:55→21:02)
[2024-10-14] MEDS: famotidine 20 mg Tablet PEG-TUBE ×2 (08:56→21:03)
[2024-10-14] MEDS: levothyroxine 50 mcg Tablet PEG-TUBE (08:56)
[2024-10-14] MEDS: lactulose oral liq 20 gm/30 mL UDC 10 GM PEG-TUBE (08:56)
[2024-10-14] MEDS: acyclovir 400 mg Tablet PEG-TUBE ×3 (08:56→21:03)
[2024-10-14] MEDS: lamoTRIgine 100 mg Tablet 400 MG PEG-TUBE ×2 (08:56→21:02)
[2024-10-14] MEDS: baclofen 10 mg Tablet 5 MG PEG-TUBE ×2 (08:56→20:02)
[2024-10-14] MEDS: sennosides-docusate Tablet 1 TAB PO ×2 (08:57→21:02)
[2024-10-14] MEDS: dextrose 5%-sod chloride 0.45% 1,000 ML 75 ML IV (10:46)
[2024-10-14 11:42] VITALS: PULSE 93; RESP 17; TEMP 37; O2SAT 97
[2024-10-14] MEDS: acetaminophen 325 mg Tablet 650 MG PEG-TUBE (14:37)
[2024-10-14 16:00] VITALS: BP 96/64; PULSE 78; RESP 16; TEMP 36.8; O2SAT 95
--- NOTE | 2024-10-14 18:18 | P.PN_ITS ---
Subjective 2 Subjective: no interim reported events. 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 currently Medications: Reviewed: Yes Vitals/I&O/Wt Last Vital Signs Temp 98.3 F 10/14/24 16:00 Pulse 78 10/14/24 16:00 Resp 16 10/14/24 16:00 BP 96/64 10/14/24 16:00 Pulse Ox 95 10/14/24 16:00 O2 Del Method Room Air 10/14/24 16:00 10/14/24 10/14/24 10/14/24 06:59 14:59 22:59 Intake Total 250 / 750 1317.5 / 1317.5 Output Total 325 / 925 600 / 600 Balance -75 / -175 1317.5 / 1317.5 -600 / 717.5 Weight last 48 hrs Weight 72.348 kg Weight 70.352 kg Weight 70.307 kg Physical Exam 2 Narrative: General: No acute distress, AO x3 HEENT: PERRLA, pupils bilaterally equal and reactive, pallors not present Chest: Normal vesicular breath sounds, no added sounds, equal good air entry bilaterally CVS: S1-S2 regular, no murmurs, no tachycardia, no gallops, no rubs Abdomen: Soft, nontender, no organomegaly, bowel sounds present Neuro: No focal deficits, no facial deformity, AO x3, power 5/5 in all limbs Urinary Catheter Management: Sequeira: Cath Placed During This Visit: yes Reason for Continuing Indwelling Catheter: Other Urinary Catheter Date of Insertion: 10/13/24 Data 10/14/24 01:45 10/14/24 01:45 Micro: Microbiology 10/12/24 23:22 Blood Culture - Preliminary Blood NEGATIVE TO DATE 10/12/24 23:16 Blood Culture - Preliminary Blood NEGATIVE TO DATE A&P Assessment and plan (1) Fever: (2) Thrombocytosis: (3) Hyponatremia: (4) Lactic acidosis: (5) Seizure disorder: (6) Cerebral palsy: Plan Reported fever Lactic acidosis Thrombocytosis - Presentation concerning for infection - Recent admission was complicated by persistent fevers - If fevers persistent, consider echocardiography - Patient's chronic cerebral palsy/nonverbal state limits history - Recent otitis media/left mastoiditis status post myringotomy tube noted - Will check head CT for complications of mastoiditis - CT chest abdomen pelvis to look for alternative source of infection ordered - Monitor fever curve, hemodynamics closely - Screen for MRSA - Check procalcitonin, CRP, ESR - Status post sepsis bolus of IVF - Continue broad-spectrum antibiotics with cefepime and vancomycin for now while further work up is pending HSV stomatitis - Continue acyclovir Dysphagia - Can likely start tube feeds in the a.m. pending CT scan results History of cerebral palsy Quadriplegia with chronic contractures of extremities Dependent in ADLs - Continue home medications History of seizure disorder - Elevated lactate can be seen with seizures - Maintain seizure precautions - Continue home AED History of hyponatremia -Monitor renal panel DVT ppx: Heparin Code: Assume Full 04/2025 Chart reviewed.29-year-old lady with a past medical history of cerebral palsy, nonverbal at baseline, chronic flexion contracture, on PEG tube feedings, admitted to the hospital recently on October 08, 2024 with altered mental status, diagnosed with otitis externa, underwent left ear myringotomy with T-tube placement. Tolerated procedure well and then was discharged home. Also received acyclovir for HSV stomatitis. Course at that time was complicated by hyponatremia which eventually resolved with urea tablets. She was discharged with recommendations to complete amoxicillin for 5 days along with ciprofloxacin eardrops. Patient returned to the emergency room on October 13, 2024 with fever and lethargy. Procalcitonin is currently negative. Lactate was mildly elevated. This improved with hydration. Patient does not have any current leukocytosis. She has been afebrile during her admission course. Head CT showed improving mastoiditis. CT of the chest abdomen and pelvis additionally did not reveal any focal localizing source of infection. Not currently having any diarrhea. Patient has remained afebrile during her course of admission. D/c vancomycin. Unable to reach caregivers for update PDMP PDMP Reviewed: Not Reviewed Attestations 2 Medical Necessity Statement*: d/c vancomycin.anticipate discharge in the upcoming 24 hrs Coding Level of Care Code Acute Code for Chg Fwd Diagnoses Fever R50.9 Thrombocytosis D75.839 Hyponatremia E87.1 Lactic acidosis E87.20 Seizure disorder G40.909 Cerebral palsy, unspecified type G80.9
[2024-10-14 20:00] VITALS: BP 105/63; PULSE 93; RESP 20; TEMP 36.7; O2SAT 91
[2024-10-14 23:57] VITALS: BP 86/59; PULSE 78; RESP 16; TEMP 36.8; O2SAT 94
[2024-10-15] MEDS: dextrose 5%-sod chloride 0.45% 1,000 ML 75 ML IV (00:30)
[2024-10-15 04:00] VITALS: BP 91/62; PULSE 99; RESP 18; TEMP 36.7; O2SAT 94
[2024-10-15 08:00] VITALS: BP 88/58; PULSE 106; RESP 16; TEMP 37.1; O2SAT 95
--- NOTE | 2024-10-15 08:57 | P.DS_ITS ---
Discharge Providers Date of Admission: 10/13/24 02:10 Date of Discharge: October 15, 2024 Attending Provider at Admission: Gregorio Ivey MD Attending Provider at Discharge: Yolanda Yanez MD Primary Care Provider: Kelvin Naqvi Jr, MD Diagnoses at Discharge Discharge Diagnosis (1) Fever: Status: Acute (2) Thrombocytosis: Status: Acute (3) Hyponatremia: Status: Acute (4) Lactic acidosis: Status: Acute (5) Seizure disorder: Status: Acute (6) Cerebral palsy: Status: Acute (7) Acute mastoiditis: Status: Acute Qualifiers: Laterality: unspecified laterality Qualified Code(s): H70.009 - Acute mastoiditis without complications, unspecified ear Reason for Visit Reason for Visit: AMS Brief History: 29-year-old lady with a past medical his tory of cerebral palsy, nonverbal at baseline, chronic flexion contracture, on PEG tube feedings, admitted to the hospital recently on October 08, 2024 with altered mental status, diagnosed with otitis externa, underwent left ear myringotomy with T-tube placement. Tolerated procedure well and then was discharged home. Also received acyclovir for HSV s tomatitis. Course at that time was complicated by hyponatremia which eventually resolved with urea tablets. She was discharged with recommendations to complete amoxicillin for 5 days along with ciprofloxacin eardrops. Patient returned to the emergency room on October 13, 2024 with fever and lethargy. Procalcitonin is currently negative. Lactate was mildly elevated. This improved with hydration. Patient does not have any current leukocytosis. She has been afebrile during her admission course. Head CT showed improving mastoiditis. CT of the chest abdomen and pelvis additionally did not reveal any focal localizing source of infection. Not currently having any diarrhea.Blood cx is negative to date. Since MRSA screen was positive and may potentially be a contributing organism for her mastoiditis, Linezolid was added for short course of 5 days in addition to Augmentin. She received cefepime and vancomycin as inpatient. Patient has remained afebrile during her course of admission. She is being discharged today in chronically ill but stable condition. Physical Exam Narrative: General: No acute distress, AO x1 HEENT: PERRLA, pupils bilaterally equal and reactive, pallors not present Chest: Normal vesicular breath sounds, no added sounds, equal good air entry bilaterally CVS: S1-S2 regular, no murmurs, no tachycardia, no gallops, no rubs Abdomen: Soft, nontender, no organomegaly, bowel sounds present Neuro: chronic flexion contractures, unable to assess for orientation Urinary Catheter Management: Sequeira: Cath Placed During This Visit: yes Reason for Continuing Indwelling Catheter: Other Urinary Catheter Date of Insertion: 10/13/24 Discharge Data Studies Completed and Pending Completed Studies During Hospitalization Category Date Time Status CT chest abdomen pelvis [CT chest abdpel w/*[id number] Cat Scan 10/13/24 00:53 Completed ] Stat CT head wo con* [id number] Stat Cat Scan 10/13/24 01:14 Completed XR chest 1V portable [id number] Stat Exams 10/12/24 22:59 Completed Pending at discharge Category Date Time Status Blood Culture Stat Lab 10/12/24 23:22 Results Radiology Impressions Chest X-Ray 10/12/24 22:59 IMPRESSION: No definite acute cardiopulmonary process. Chest/Abdomen/Pelvis CT 10/13/24 00:53 IMPRESSION: No acute findings. IMPRESSION: No acute findings. Head CT 10/13/24 01:14 IMPRESSION: Modest improvement with left mastoiditis. Laboratory Results WBC 4.35 10^3/uL (3.29-11.43) 10/14/24 01:45 RBC 3.43 10^6/uL (3.85-5.65) L 10/14/24 01:45 Hgb 10.30 g/dL (11.27-16.99) L 10/14/24 01:45 Hct 31.8 % (36-47) L 10/14/24 01:45 MCV 92.7 fl (85-98) 10/14/24 01:45 MCH 30.0 pg (27-33) 10/14/24 01:45 MCHC 32.4 g/dL (30-55) 10/14/24 01:45 RDW 14.1 % (12.1-15.1) 10/14/24 01:45 Plt Count 330 10^3/cmm (157-399) 10/14/24 01:45 MPV 8.9 fL (7.4-10.4) 10/14/24 01:45 Neut % (Auto) 21.9 % 10/14/24 01:45 Lymph % (Auto) 60.2 % 10/14/24 01:45 Adair % (Auto) 13.6 % 10/14/24 01:45 Eos % (Auto) 1.8 % 10/14/24 01:45 Baso % (Auto) 1.8 % 10/14/24 01:45 Neut # (Auto) 0.95 10^3/uL (1.8-7.7) L* 10/14/24 01:45 Lymph # (Auto) 2.6 10^3/uL (0.8-4.8) 10/14/24 01:45 Adair # (Auto) 0.6 10^3/uL (0.2-0.9) 10/14/24 01:45 Eos # (Auto) 0.1 10^3/uL (0.0-0.8) 10/14/24 01:45 Baso # (Auto) 0.1 10^3/uL (0.0-0.1) 10/14/24 01:45 Nucleated RBC % (auto) 0 % 10/14/24 01:45 Nucleated RBCs # 0.0 /100WBC 10/14/24 01:45 ESR 39 mm/hr (0-15) H 10/12/24 23:16 Sodium 136 mmol/L (136-145) 10/14/24 01:45 Potassium 4.5 mmol/L (3.5-5.1) 10/14/24 01:45 Chloride 102 mmol/L (98-107) 10/14/24 01:45 Carbon Dioxide 22 mmol/L (22-29) 10/14/24 01:45 Anion Gap 16.5 (5-19) 10/14/24 01:45 BUN 7 mg/dL (6-20) 10/14/24 01:45 Creatinine 0.5 mg/dL (0.5-0.9) 10/14/24 01:45 GFR Calculation 145.9 mL/min (90-130) H 10/14/24 01:45 Glucose 85 mg/dL (65-115) 10/14/24 01:45 Calculated Osmolality 280 mOsm/kg (285-295) L 10/12/24 23:16 Lactic Acid 4.2 mmol/L (0.5-2.2) H* 10/12/24 23:16 Lactic Acid (Sepsis) 2.9 mmol/L (0.5-2.2) H 10/13/24 02:13 Calcium 9.1 mg/dL (8.5-10.5) 10/14/24 01:45 Phosphorus 4.3 mg/dL (2.5-4.5) 10/14/24 01:45 Total Bilirubin 0.2 mg/dL (0.15-1.2) 10/12/24 23:16 AST 30 U/L (0-32) 10/12/24 23:16 ALT 31 U/L (0-33) 10/12/24 23:16 Alkaline Phosphatase 165 U/L (35-105) H 10/12/24 23:16 C-Reactive Protein 12.3 mg/L (0.0-4.9) H 10/12/24 23:16 Total Protein 8.7 g/dL (6.6-8.7) 10/12/24 23:16 Albumin 4.2 g/dL (3.5-5.2) 10/14/24 01:45 Globulin 4.1 g/dL (1.3-4.6) 10/12/24 23:16 Procalcitonin 0.03 ng/mL (0-0.5) 10/12/24 23:16 Urine Color Yellow (Yellow) 10/13/24 00:43 Urine Appearance Clear (CLEAR) 10/13/24 00:43 Urine pH 6.5 (5-7) 10/13/24 00:43 Ur Specific Vowinckel 1.024 (1.005-1.030) 10/13/24 00:43 Urine Protein 1+ (Negative) A 10/13/24 00:43 Urine Glucose (UA) Negative (Normal) 10/13/24 00:43 Urine Ketones Negative (Negative) 10/13/24 00:43 Urine Blood Negative (Negative) 10/13/24 00:43 Urine Nitrate Negative (Negative) 10/13/24 00:43 Urine Bilirubin Negative (Negative) 10/13/24 00:43 Urine Urobilinogen 1.0 mg/dL (Negative) 10/13/24 00:43 Ur Leukocyte Esterase Negative (Negative) 10/13/24 00:43 Urine RBC 0-2 /hpf (0-2) 10/13/24 00:43 Urine WBC 0-5 /hpf (0-5) 10/13/24 00:43 Ur Squamous Epith Cells 0-5 /hpf (0-5) 10/13/24 00:43 Amorphous Sediment Not Reportable 10/13/24 00:43 Urine Bacteria None seen /hpf (NONE) 10/13/24 00:43 Hyaline Casts 4.52 /lpf 10/13/24 00:43 Nasal MRSA (PCR) Mrsa detected (Not Detecte) A 10/13/24 04:21 Vancomycin Trough 18.6 ug/mL (10-15) H 10/14/24 01:45 Influenza A (PCR) Negative (Negative) 10/12/24 23:27 Influenza Type B (PCR) Negative (Negative) 10/12/24 23:27 RSV (PCR) Negative (Negative) 10/12/24 23:27 SARS-CoV-2 (PCR) Negative (Negative) 10/12/24 23:27 Vitals Last Vital Signs Temp 98.8 F 10/15/24 08:00 Pulse 106 H 10/15/24 08:00 Resp 16 10/15/24 08:00 BP 88/58 10/15/24 08:00 Pulse Ox 95 10/15/24 08:00 O2 Del Method Room Air 10/15/24 08:00 Discharge Plan Discharge Patient Disposition: Home Condition: Stable Prescriptions: New linezolid 600 mg tablet 600 mg PO BID 5 Days Qty: 10 0RF Continued lamotrigine 200 mg tablet 400 mg feeding tube BID@08,20 rufinamide [Banzel] 400 mg tablet 1,400 mg feeding tube BID@08,20 magnesium hydroxide [Milk of Magnesia] 400 mg/5 mL suspension 30 ml peg-tube DAILY PRN (Reason: constipation) hydrocodone-acetaminophen 10-325 mg tablet 1 tab feeding tube BID PRN (Reason: Pain) levothyroxine 50 mcg tablet 50 mcg feeding tube DAILY white petrolatum-mineral oil 94-3 % Ointment 1 applic OPHTHALMIC (EYE) DAILY baclofen 5 mg tablet 5 mg feeding tube BID acyclovir 400 mg Tablet 400 mg PO TID 5 Days Qty: 15 0RF urea 15 gram/scoop powder 10 g PO DAILY Qty: 454 0RF acetaminophen [Tylenol] 325 mg Tablet 650 mg feeding tube Q4H PRN (Reason: Pain) sennosides-docusate sodium [Senna-S] 8.6-50 mg Tablet 1 tab PO BID@08,20 Rx Instructions: MAY HOLD FOR LOOSE STOOLS famotidine 20 mg tablet 20 mg feeding tube BID@08,20 phenobarbital 30 mg tablet 60 mg feeding tube BID@08,20 levetiracetam 750 mg tablet 1,500 mg PO BID@08,20 lactulose 10 gram/15 mL solution 10 g feeding tube DAILY@08 Rx Instructions: may hold for loose stools Biofreeze (menthol) 4 % Gel See Rx Instructions .ROUTE .COMPLEX Rx Instructions: Apply to left shoulder topically three times a day @09:00,14:00,21:00 bisacodyl 10 mg Suppository 10 mg IL DAILY PRN (Reason: Constipation) nystatin 100,000 unit/gram cream See Rx Instructions .ROUTE .COMPLEX Rx Instructions: APPLY TO G-TUBE SITE TOPICALLY TWO TIMES A DAY FOR REDNESS TO G-TUBE SITE (CLEANSE G-TUBE SITE WITH NS PAT DRY APPLY A THIN FILM OF CREAM OVER WITH SPLIT SPONGE) Tstjx-Qs-Kbi Enema 19-7 gram/118 mL Enema 118 ml IL DAILY PRN (Reason: Constipation) amoxicillin-pot clavulanate 875-125 mg Tablet 1 tab PO BID 5 Days Qty: 10 0RF ciprofloxacin-dexamethasone 0.3-0.1 % Drops,Suspension 4 drp ear (left) BID 5 Days Qty: 7.5 0RF Discharge Orders: Discharge Order (Routine); Ordered 10/15/24 Ordered By: Yolanda Yanez Referrals: Kelvin Naqvi Jr, MD [Primary Care Provider, Family Practice] - 7-10 days Omar Sampson MD [Physician, Ear, Nose, Throat] - 4-7 days Referral Note: f/up hospital discharge for mastoiditis Discharge Diet: Resume prior tube feeds Discharge Activity: Resume usual activity Patient Instructions: Opioid Safety Discharge Attestations Time Spent in Discharge Care*: greater than 30 min Status at Discharge: Cognitive status at discharge: severely impaired cognition (At baseline however. ) , Quality Metrics Clinical Quality Measures [ No reported AMI, CVA or VTE this stay] Coding Level of Care Code Acute Code for Chg Fwd Diagnoses Fever R50.9 Thrombocytosis D75.839 Hyponatremia E87.1 Lactic acidosis E87.20 Seizure disorder G40.909 Cerebral palsy, unspecified type G80.9 Acute mastoiditis H70.009 Laterality: unspecified laterality
[2024-10-15] MEDS: famotidine 20 mg Tablet PEG-TUBE ×2 (09:09→20:18)
[2024-10-15] MEDS: levothyroxine 50 mcg Tablet PEG-TUBE (09:09)
[2024-10-15] MEDS: baclofen 10 mg Tablet 5 MG PEG-TUBE ×2 (09:09→17:56)
[2024-10-15] MEDS: lamoTRIgine 100 mg Tablet 400 MG PEG-TUBE ×2 (09:09→20:18)
[2024-10-15] MEDS: sennosides-docusate Tablet 1 TAB PO ×2 (09:09→20:18)
[2024-10-15] MEDS: lactulose oral liq 20 gm/30 mL UDC 10 GM PEG-TUBE (09:10)
[2024-10-15] MEDS: levETIRAcetam 500 MG/5 ML UDC 1500 MG PEG-TUBE ×2 (09:10→20:18)
[2024-10-15] MEDS: acyclovir 400 mg Tablet PEG-TUBE ×3 (09:10→20:18)
--- NOTE | 2024-10-15 11:53 | PC.NURSE ---
Removed patient's catheter and Peripheral iv in her left arm. Patient tolerated procedure well.
[2024-10-15 12:00] VITALS: BP 81/59; PULSE 104; RESP 15; TEMP 36.8; O2SAT 96
[2024-10-15 15:51] VITALS: BP 93/62; PULSE 89; RESP 16; TEMP 37.1; O2SAT 96
--- NOTE | 2024-10-15 18:37 | PC.NURSE ---
transportation still waiting for ambulance until now to take pt back to [facility].
[2024-10-15 19:34] VITALS: BP 87/62; PULSE 83; RESP 18; TEMP 36.6; O2SAT 94
[2024-10-15 22:05] VITALS: BP 87/62; PULSE 83; RESP 19; TEMP 36.6; O2SAT 94
== END 2024-10-15 21:55 | disposition skilled nursing facility (03) ==
LOC: ER 10-13 02:08 → MEDSURG 10-13 02:19
PROVIDERS: Student in an Organized Health Care Education/Training Program; Admitting Provider Internal Medicine; Emergency Provider Emergency Medicine; PCP Family Medicine; Visit Provider Student in an Organized Health Care Education/Training Program
DX: A49.02 Methicillin resistant Staphylococcus aureus infection, unspecified site (principal); D75.839 Thrombocytosis, unspecified; E87.1 Hypo-osmolality and hyponatremia; E87.20 Acidosis, unspecified; G40.909 Epilepsy, unspecified, not intractable, without status epilepticus; G80.9 Cerebral palsy, unspecified; H70.009 Acute mastoiditis without complications, unspecified ear; E23.0 Hypopituitarism
CPT/HCPCS: 36415; 51702; 70450; 71045; 71260; 74177; 80053; 80069; 80202; 81001; 83605; 84145; 85025; 85651; 86140; 87040; 87637; 93005; 96365; 96366; 96375; 99285; G0378; J0692; J0696; J3370; J7030; J7050; J7799; J8499; J9999

== ENCOUNTER 2024-11-15 11:07 | Outpatient (CLI) | payer MEDICARE, MEDICAID, SELFPAY ==
--- NOTE | 2024-11-15 11:12 | CTR_ITS ---
PROCEDURE INFORMATION: Exam: CT Temporal Bones Without Contrast. Exam date and time: 11/15/2024 11:15 AM Age: 29 years old Clinical indication: Other: Mastoiditis; Additional info: Mastoiditis, acute with other complications TECHNIQUE: Imaging protocol: Computed tomography of the temporal bones without contrast. Radiation optimization: All CT scans at this facility use at least one of these dose optimization techniques: automated exposure control; mA and/or kV adjustment per patient size (includes targeted exams where dose is matched to clinical indication); or iterative reconstruction. COMPARISON: CT temporal bone wo con* [id number] 09/29/2024 7:57 PM RADIATION DOSE METRICS: Total DLP (mGy-cm): 621.95 FINDINGS: Right inner ear: Normal. Right ossicles and middle ear: Normal. The middle ear ossicles are intact. Right external auditory canal: Normal. Right facial nerve canal: Normal. Right jugular foramen: No jugular dehiscence. Right carotid canal: No aberrant carotid canal. Right mastoid air cells: There is a small right mastoid effusion which is similar in appearance. Left inner ear: Normal. Left ossicles and middle ear: Normal. The middle ear ossicles are intact. The patient is status post tympanostomy. Left external auditory canal: Asymmetric thickening of the mayberry but significantly improved patency when compared with the prior exam. Left facial nerve canal: Normal. Left jugular foramen: No jugular dehiscence. Left carotid canal: No aberrant carotid canal. Left mastoid air cells: There is extensive opacification of the left mastoid air cells again seen with mildly improved aeration. Soft tissues: Unremarkable. CT/CT temporal bone wo con* [id number] IMPRESSION: 1. Extensive left mastoid effusion again seen with improved aeration when compared with the prior exam. 2. No evidence of otitis. The patient is status post left tympanostomy. The middle ear ossicles are intact. 3. Small right mastoid effusion.
== END 2024-11-15 11:08 | disposition home or self-care (01) ==
PROVIDERS: PCP Family Medicine; Visit Provider Specialist
DX: H70.09 Acute mastoiditis with other complications (principal); H74.8X3 Other specified disorders of middle ear and mastoid, bilateral; Z98.890 Other specified postprocedural states; R93.0 Abnormal findings on diagnostic imaging of skull and head, not elsewhere classified
CPT/HCPCS: 70480

== ENCOUNTER 2025-01-28 21:02 | Inpatient (IN) | payer OTHER, MEDICAID, SELFPAY ==
[2025-01-28 21:06] VITALS: BP 79/42; PULSE 118; TEMP 39.2; O2SAT 90
--- NOTE | 2025-01-28 21:20 | XRR_ITS ---
PROCEDURE INFORMATION: Exam: XR Chest Exam date and time: 01/28/2025 9:29 PM Age: 29 years old Clinical indication: Fever; Prior surgery; Surgery date: 6+ months; Surgery type: Pacer tor rods; Additional info: Possible sepsis TECHNIQUE: Imaging protocol: Radiologic exam of the chest. Views: 1 view. COMPARISON: CT chest abdpel w/*[id number] 10/13/2024 1:06 AM FINDINGS: Tubes, catheters and devices: At pacemaker power pack overlies the left chest. Lungs: The lungs are clear. Pleural spaces: Unremarkable. No pleural effusion. No pneumothorax. Heart/Mediastinum: Unremarkable. No cardiomegaly. Bones/joints: Exam is somewhat limited by scoliosis and metallic fusion hardware. XR/XR chest 1V portable [id number] IMPRESSION: Lungs clear
--- OUTSIDE RECORDS SUMMARY | 2025-01-28 21:31 | XMS_ITS | Encounter Summary ---
Author Organization [facility] Address [address] [place] [address] Care Team Providers Care Ppap Coordinator Name Role Phone Florence Leger APN Primary Care Provider [phone] Encounter Details Date Type Department Care Team (Latest Contact Info) Description 09/27/2000 Outpatient Historical [facility] 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
--- OUTSIDE RECORDS SUMMARY | 2025-01-28 21:31 | XMS_ITS | Clinical Summary ---
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 Take Three and one half tablets BID 240 Tablet 6 04/07/2020 Active levETIRAcetam (KEPPRA) 750 mg Tablet 2 Tablets (1,500 mg) by PEG Tube route 2 times daily. 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 10/16/2019 Active FENOFIBRATE ORAL Take by mouth. [...] Diagnosed Date Unspecified adrenocortical insufficiency 020 Intractable Lefors-Gastaut s yndrome without status epilepticus 10/16/2019 Intractable [...] Encounters Date Type Department Care Team Description 01/09/2025 External Device Data [facility] ABSTRACTION Provider, Abstract 01/08/2025 External Device Data [facility]CTION Provider, Abstract 12/19/2024 External Device Data [facility]STRACTION Provider, Abstract 12/18/2024 External Device Data [facility]STRACTION Provider, Abstract 12/04/2024 External Device Data [facility]STRACTION Provider, Abstract from Last 3 Months Immunizations Immunization Administration [...] on file 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 Gender Identity Not on file Sexual Orientation Not on file Last Filed Vital Signs Vital Sign Reading Time Taken Comments Blood Pressure 97/55 08/04/2022 10:55 AM TIMBER ESTIMATOR Pulse 82 07/15/2020 2:29 PM TIMBER ESTIMATOR Temperature 36.9 C (98.4 F) 08/08/2024 3:01 PM TIMBER ESTIMATOR Respiratory Rate 18 08/08/2024 3:01 PM TIMBER ESTIMATOR Oxygen Saturation - - Inhaled Oxygen Concentration - - Weight 73.5 kg (162 lb) 08/08/2024 3:01 PM TIMBER ESTIMATOR Height 165.1 cm (5' 5 ) 08/08/2024 3:01 PM TIMBER ESTIMATOR Body Mass Index 26.96 08/08/2024 3:01 PM TIMBER ESTIMATOR Plan of Treatment Health Maintenance Due Date Last Done Comments DTAP/TDAP/TD VACCINES (6 - Tdap) 2006 07/08/1999, 07/24/1996, 1995, Additional history exists HPV VACCINES (1 - 3-dose series) 2010 CERVICAL CANCER SCREENING 2016 HPV/Cotest (21-29) 2016 PAP SMEAR 2016 COVID-19 Vaccine (4 - 2023-2 5 season) 2024 06/14/2022, 01/23/2021, 12/19/2020 INFLUENZA VACCINE (#1) 2025 HEPATITIS B VACCINES Completed 1995, 1995, 1995, Additional history exists Medical Devices Implanted Type Area Metal Dealer Device Identifier Shelf Expiration Date Model / Serial / Lot Generator Vns Demipulse 103 - [id number] Implanted:Qty : 1 on 03/04/2020 by Ania Carrasco MD Neuro Stimulator Left: Chest [facility] 12/11/2020 103 / [id number] / Neuro Neuro Description:generatro VNS Explanted Type Area Metal Dealer Device Identifier Shelf Expiration Date Model / Serial / Lot Generator Vns Aspire 105 - [id number] Implanted:Ania Ramirez MD (Quantity not on file) Explanted:Qty : 1 on 03/04/2020 by Ania Carrasco MD Neuro Stimulator Left: Chest [facility] 105 / [id number] / Insurance MEDICAID [place] D[place] COMPLETE PPO DSNP [facility] [id number] Care Teams Processor Helper Relationship Specialty Start Date End Date Florence Leger APN [address] [place] [id number] PCP - General Nurse Practitioner Family 10/16/19
--- OUTSIDE RECORDS SUMMARY | 2025-01-28 21:31 | XMS_ITS | Clinical Summary ---
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 (CMS/HCC),[place] l symptomatic [...] on file Legal Sex Female 3:47 AM HOME DEPOT REP Gender Identity Not on file Sexual Orientation Not on file Last Filed Vital Signs Vital Sign Reading Time Taken Comments Blood Pressure 94/71 07/15/2020 2:29 PM HOME DEPOT REP Pulse 82 07/15/2020 2:29 PM HOME DEPOT REP Temperature 36.3 C (97.3 F) 07/15/2020 2:29 PM HOME DEPOT REP Respiratory Rate 18 07/15/2020 2:29 PM HOME DEPOT REP Oxygen Saturation 96% 07/15/2020 2:29 PM HOME DEPOT REP Inhaled Oxygen Concentration - - Weight 62.6 [...] 2016 HPV/Cotest (21-29) 2016 PAP SMEAR 2016 HPV VACCINES (1 - 3-dose SCD M series) 2022 INFLUENZA VACCINE (#1) 2025 HEPATITIS B VACCINES Completed 1995, 1995, 1995 Medical Devices Implanted Type Area [place] Device Identifier Shelf Expiration Date Model / Serial / Lot Generator Vns Demipulse 103 - [id number] Implanted:Qty: 1 on 03/04/2020 by Ania Carrasco MD at [facility] Neuro Stimulator Left: Chest [employer] 12/11/2020 103 / [id number] / Neuro Neuro Description:generatro VNS Explanted Type Area [place] Device Identifier Shelf Expiration Date Model / Serial / Lot Generator Vns Aspire 105 - [id number] Implanted:Ania Bowman MD (Quantity not on file) Explanted:Qty: 1 on 03/04/2020 by Ania Carrasco MD at [facility] Neuro Stimulator Left: Chest [employer] [place] [id number] / [id number] / Insurance MEDICAID [place] D[employer]PLETE [facility] PPO D-SNP Advance Directives For more information, please contact: [phone] * Full Code (Latest Code Status on File) Date Activated Date Inactivated Comments 03/04/2020 11:45 AM 03/04/2020 7:28 PM * Full Code Date Activated Date Inactivated Comments 03/04/2020 11:22 AM 03/04/2020 11:44 AM Care Teams Sorting Cows Worker Relationship Specialty Start Date End Date Florence Leegr APN [address] [place] [id number] PCP - General Nurse Practitioner Family 10/16/19
[2025-01-28 21:45] VITALS: BP 100/64; PULSE 121; RESP 17; O2SAT 96
[2025-01-28 22:13] LABS: Hematocrit 33.6 % (36-47); Hemoglobin 11.00 g/dL (11.27-16.99); Mean Corpuscular HGB Conc 32.7 g/dL (30-55); Mean Corpuscular Hemoglobin 30.8 pg (27-33); Mean Corpuscular Volume 94.1 fl (85-98); Nucleated Red Blood Cells % 0 %; Platelet Count 281 10^3/cmm (157-399); Red Blood Count 3.57 10^6/uL (3.85-5.65); White Blood Count 12.83 10^3/uL (3.29-11.43)
--- NOTE | 2025-01-28 22:19 | ECG_ITS ---
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 Measurements Intervals [place] Rate: 109 P: 46 MS: 182 QRS: 77 QRSD: 89 T: -85 QT: 338 QTc: 455 Interpretive Statements SINUS TACH[address] DEVIATION AND MODERATE T-WAVE ABNORMALITY, CONSIDER LATERAL ISCHEMIA [-0.1+ mV T-WAVE IN I/aVL/V5/V6] ST DEVIATION AND MODERATE T-WAVE ABNORMALITY, CONSIDER INFERIOR ISCHEMIA [-0.1+ mV T-WAVE IN II/aVF] Compared to ECG 10/12/2024 23:21:51 Sinus rhythm no longer present T-wave abnormality still present Possible ischemia still present Electronically Signed On 01-29-2025 08:09:39 CDT by Maira Koo M.D. [email or web address]
[2025-01-28 22:20] LABS: Glucose Urine UA Negative (Normal); Nitrate Urine Negative (Negative); Specific Gravity, Urine 1.027 (1.005-1.030)
--- NOTE | 2025-01-28 22:23 | ED_ITS ---
HPI - Fever 2 General: Chief Complaint: Fever Stated Complaint: fever Time Seen by Provider: 01/28/25 21:05 History of Present Illness: 29 yo F with cerebral palsy (nonverbal, contracted) and chronic hypotension presents from [facility] for persistent fever to 102.6 ?F despite Tylenol earlier today. EMS reports multiple episodes of diarrhea and BP lower than her usual baseline. On arrival HR 118, BP 79/42, SpO? 90% RA, T 102.6 ?F. Baseline mentation unchanged; patient laughs and withdraws during procedures but cannot follow commands. No known recent cough or urinary complaints mentioned. Related Data Home Medications ?Medication ?Instructions ?Recorded ?Confirmed lamotrigine 200 mg tablet 400 mg feeding tube BID@,2 0 04/01/20 10/13/24 rufinamide 400 mg tablet (Banzel) 1,400 mg feeding tub e BID@,20 04/01/20 10/13/24 acetaminophen 325 mg tablet 650 mg feeding tube Q4H NE N Pain 04/26/22 10/13/24 (Tylenol) famotidine 20 mg tablet 20 mg feeding tube BID@,20 04/26/22 10/13/24 lactulose 10 gram/15 mL oral 10 g feeding tube DAILY@0 8 04/26/22 10/13/24 solution levetiracetam 750 mg tablet 1,500 mg PO BID@, 112 06/2710/13/24 menthol 4 % topical gel (Biofreeze See Rx Instructions .Route .COMPLEX 04/26/22 10/13/24 (menthol)) phenobarbital 30 mg tablet 60 mg feeding tube BID@,2 0 04/26/22 10/13/24 sennosides 8.6 mg-docusate sodium 1 tab PO BID@,20 1 06/26/21 10/13/24 50 mg tablet (Senna-S) magnesium hydroxide 400 mg/5 mL 30 ml peg-tube DAILY P RN 05/06/22 10/13/24 oral suspension (Milk of Magnesia) constipation bisacodyl 10 mg rectal suppository 10 mg NE DAILY PRN Constipation 03/02/23 10/13/24 nystatin 100,000 unit/gram topical See Rx Instructions .Route .COMPLEX 03/02/23 10/13/24 cream sodium phosphates 19 gram-7 118 ml NE DAILY PRN Consti pation 03/02/23 10/13/24 gram/118 mL enema (Kefww-Hc-Xlo Enema) baclofen 5 mg tablet 5 mg feeding tube BID 10/13/24 hydrocodone 10 mg-acetaminophen 1 tab feeding tube BID PRN Pain 09/29/24 10/13/24 325 mg tablet levothyroxine 50 mcg tablet 50 mcg feeding tube DAILY 09/29/24 10/13/24 white petrolatum-mineral oil 94 1 applic ophthalmic (e ye) DAILY 09/29/24 10/13/24 %-3 % eye ointment Previous Rx's ?Medication ?Instructions ?Recorded urea 15 gram/scoop oral powder 10 g PO DAILY #454 gram s 10/08/24 Allergies Allergy/AdvReac Type Severity Reaction Status Date / Time diphenhydramine (From Allergy ADR-Seizure Verified 01/28/25 21:14 Benadryl) PFSH ED 2 PFSH: Medical History Hyponatremia Acute hyponatremia Hypothyroidism Panhypopituitarism Perforated tympanic membrane Seizure disorder Cerebral palsy Surgical History Status post VNS (vagus nerve stimulator) placement ? S/P percutaneous endoscopic gastrostomy (PEG) tube placement Family History Other Diabetes Hyperlipidemia Social History Smoking and tobacco/nicotine status: never used tobacco/nicotine Alcohol intake: never Substance/Drug Use: never Caregiver/support person: Yes Lives independently: No Household members: other Housing: [facility] Physical Exam 2 Narrative: EXAM NARRATIVE: Gen: Tachycardic, febrile, warm to touch Lungs: Clear bilaterally Abdomen: Soft, non-distended; G-tube in LUQ Extremities: Arms and legs retracted; limited voluntary arm movement Neuro: Baseline nonverbal; laughs and withdraws to pain Course 2 Vital Signs: Vital signs: Vital Signs Temperature 99.0 F 01/29/25 02:50 Pulse Rate 111 H 01/29/25 05:30 Respiratory Rate 18 01/29/25 05:30 Blood Pressure 97/57 01/29/25 05:30 Pulse Oximetry 94 01/29/25 05:30 Oxygen Delivery Me thod Room Air 01/29/25 04:00 MDM - Fever Medical Decision Making The patient presents with high fever, tachycardia, hypotension, and profuse diarrhea despite prior acetaminophen, concerning for systemic infection. Initial vitals show HR 118, BP 79/42, T 102.6 ?F, SpO? 90%. Exam reveals warm skin, clear lungs, soft abdomen with G-tube, contracted extremities, and baseline mentation. [Pertinent Labs Not Available] [Pertinent Imaging Results Not Available] Sepsis: fulfills SIRS criteria with fever, tachycardia, hypotension. Source unclear; GI infection considered given diarrhea, infection possible hence urine sampling. Hypotension may be baseline but septic shock cannot be excluded. Diagnostics and treatment: obtain blood cultures, lactic acid, CBC, CMP; straight-cath UA and culture; collect stool sample if available. Administer 30 mL/kg NS bolus. Give acetaminophen via G-tube for fever. Start broad-spectrum IV antibiotics after cultures. Arrange hospital admission for continued sepsis management. Patient remained mildly tachycardic and blood pressure remained soft but the after IV fluids mean arterial pressure remains above 65 and currently is 70. Chest x-ray, urinalysis do not show evidence of infection. Stool was checked and C. difficile is positive. I suspect this to be the cause of her fever and she was given liquid vancomycin via gastrostomy tube. She will be admitted to the hospital service for further observation and care Lab Data 01/28/25 21:36 01/28/25 21:36 Radiology Impressions Chest X-Ray 01/28/25 21:20 IMPRESSION: Lungs clear Laboratory Results WBC 12.83 10^3/uL (3.29-11.43) H 01/28/25 21:36 RBC 3.57 10^6/uL (3.85-5.65) L 01/28/25 21:36 Hgb 11.00 g/dL (11.27-16.99) L 01/28/25 21:36 Hct 33.6 % (36-47) L 01/28/25 21:36 MCV 94.1 fl (85-98) 01/28/25 21:36 MCH 30.8 pg (27-33) 01/28/25 21:36 MCHC 32.7 g/dL (30-55) 01/28/25 21:36 RDW 12.9 % (12.1-15.1) 01/28/25 21:36 Plt Count 281 10^3/cmm (157-399) 01/28/25 21:36 MPV 11.3 fL (7.4-10.4) H 01/28/25 21:36 Neut % (Auto) 50.6 % 01/28/25 21:36 Lymph % (Auto) 30.6 % 01/28/25 21:36 Yates % (Auto) 16.0 % 01/28/25 21:36 Eos % (Auto) 2.0 % 01/28/25 21:36 Baso % (Auto) 0.5 % 01/28/25 21:36 Neut # (Auto) 6.48 10^3/uL (1.8-7.7) 01/28/25 21:36 Lymph # (Auto) 3.9 10^3/uL (0.8-4.8) 01/28/25 21:36 Yates # (Auto) 2.1 10^3/uL (0.2-0.9) H 01/28/25 21:36 Eos # (Auto) 0.3 10^3/uL (0.0-0.8) 01/28/25 21:36 Baso # (Auto) 0.1 10^3/uL (0.0-0.1) 01/28/25 21:36 Nucleated RBC % (auto) 0 % 01/28/25 21:36 Nucleated RBCs # 0.0 /100WBC 01/28/25 21:36 Sodium 140 mmol/L (136-145) 01/28/25 21:36 Potassium 3.4 mmol/L (3.5-5.1) L 01/28/25 21:36 Chloride 108 mmol/L (98-107) H 01/28/25 21:36 Carbon Dioxide 19 mmol/L (22-29) L 01/28/25 21:36 Anion Gap 16.4 (5-19) 01/28/25 21:36 BUN 14 mg/dL (6-20) 01/28/25 21:36 Creatinine 0.5 mg/dL (0.5-0.9) 01/28/25 21:36 GFR Calculation 145.9 mL/min (90-130) H 01/28/25 21:36 Glucose 86 mg/dL (65-115) 01/28/25 21:36 Calculated Osmolality 290 mOsm/kg (285-295) 01/28/25 21:36 Lactic Acid 1.6 mmol/L (0.5-2.2) 01/28/25 21:36 Calcium 7.6 mg/dL (8.5-10.5) L 01/28/25 21:36 Total Bilirubin 0.3 mg/dL (0.15-1.2) 01/28/25 21:36 AST 20 U/L (0-32) 01/28/25 21: ALT 13 U/L (0-33) 01/28/25 21: Alkaline Phosphatase 163 U/L (35-105) H 01/28/25 21:36 Total Protein 6.7 g/dL (6.6-8.7) 01/28/25 21: Albumin 3.8 g/dL (3.5-5.2) 01/28/25 21:36 Globulin 2.9 g/dL (1.3-4.6) 01/28/25 21:36 Urine Color Dark yellow (Yellow) A 01/28/25 22:00 Urine Appearance Clear (CLEAR) 01/28/25 22:00 Urine pH 5.0 (5-7) 01/28/25 22:00 Ur Specific [place] 1.027 (1.005-1.030) 01/28/25 22:00 Urine Protein Trace (Negative) A 01/28/25 22:00 Urine Glucose (UA) Negative (Normal) 01/28/25 22:00 Urine Ketones Trace (Negative) 01/28/25 22:00 Urine Blood Negative (Negative) 01/28/25 22:00 Urine Nitrate Negative (Negative) 01/28/25 22:00 Urine Bilirubin Negative (Negative) 01/28/25 22:00 Urine Urobilinogen 1.0 mg/dL (Negative) 01/28/25 22:00 Ur Leukocyte Esterase Trace (Negative) A 01/28/25 22:00 Urine RBC 0-2 /hpf (0-2) 01/28/25 22:00 Urine WBC 0-5 /hpf (0-5) 01/28/25 22:00 Ur Squamous Epith Cells 0-5 /hpf (0-5) 01/28/25 22:00 Amorphous Sediment Not Reportable 01/28/25 22:00 Urine Bacteria None seen /hpf (NONE) 01/28/25 22:00 Hyaline Casts 4.52 /lpf 01/28/25 22:00 Adenovirus (PCR) Not detected (NOT DETECT) 01/28/25 22:21 C. pneumoniae DNA (PCR) Not detected (NOT DETECT) 01/28/25 22:21 C. difficile (PCR) Positive (Negative) H 01/29/25 01:31 Coronavirus 229E (PCR) Not detected (NOT DETECT) 01/28/25 22:21 Human Metapneumovir PCR Not detected (NOT DETECT) 01/28/25 22:21 Influenza A (H1) PCR Not detected (NOT DETECT) 01/28/25 22:21 Influ A (H1/09) PCR Not detected (NOT DETECT) 01/28/25 22:21 Influenza A (H3) PCR Not detected (NOT DETECT) 01/28/25 22:21 Influenza Type A (PCR) Not detected (NOT DETECT) 01/28/25 22:21 Influenza Type B (PCR) Not detected (NOT DETECT) 01/28/25 22:21 M. pneumoniae (PCR) Not detected (NOT DETECT) 01/28/25 22:21 Parainfluenza 1 (PCR) Not detected (NOT DETECT) 01/28/25 22:21 Parainfluenza 2 (PCR) Not detected (NOT DETECT) 01/28/25 22:21 Parainfluenza 3 (PCR) Not detected (NOT DETECT) 01/28/25 22:21 Parainfluenza 4 (PCR) Not detected (NOT DETECT) 01/28/25 22:21 RSV Type A (PCR) Not detected (NOT DETECT) 01/28/25 22:21 RSV Type B (PCR) Not detected (NOT DETECT) 01/28/25 22:21 Entero/Rhino (PCR) Not detected (NOT DETECT) 01/28/25 22:21 SARS-CoV-2 (PCR) Not detected (NOT DETECT) 01/28/25 22:21 All radiology interpretation(s) finalized by discharge EKG Data EKG 1: Interpretation: Time?2218?sinus tachycardia, rate of 109, no ST segment elevation or depression, QTc = 402 diffuse T wave inversions. Discharge Plan Discharge Patient Disposition: Admitted As Inpatient Admit Provider: Anette Knight Clinical Impression: C. difficile diarrhea, Fever Condition: Stable Coding Level of Care Code ED Configuration Management Administrator for Lobito Paula
[2025-01-28 22:24] LABS: Add Urine Microscopic? YES
[2025-01-28 22:29] LABS: Alanine Aminotransferase 13 U/L (0-33); Albumin Level 3.8 g/dL (3.5-5.2); Alkaline Phosphatase 163 U/L (35-105); Aspartate Amino Transferase 20 U/L (0-32); Blood Urea Nitrogen 14 mg/dL (6-20); Calcium 7.6 mg/dL (8.5-10.5); Carbon Dioxide 19 mmol/L (22-29); Chloride 108 mmol/L (98-107); Creatinine Clr Calc Pharmacy 163.8126; Globulin 2.9 g/dL (1.3-4.6); Glucose 86 mg/dL (65-115); Osmolality Calculated 290 mOsm/kg (285-295); Sodium 140 mmol/L (136-145); Total Protein 6.7 g/dL (6.6-8.7)
[2025-01-28 22:30] VITALS: BP 105/60; PULSE 108; RESP 16; O2SAT 96
[2025-01-28 22:30] LABS: Anion Gap 16.4 (5-19); Lactic Sepsis W/Reflex 1.6 mmol/L (0.5-2.2); Potassium 3.4 mmol/L (3.5-5.1)
[2025-01-28 22:43] LABS: UA Slide Review UA Slide Review Perf
[2025-01-28 23:30] VITALS: BP 90/65; PULSE 109; RESP 24; TEMP 37.6; O2SAT 96
[2025-01-29] VITALS (91 sets, daily range): BP systolic 64–110; BP diastolic 36–77; PULSE 95–127; RESP 13–28; TEMP 37.2–37.7; O2SAT 91–100
[2025-01-29 00:13] LABS: Coronavirus 229E,HKU1,NL63,OC4 Not Detected (NOT DETECT); Parainfluenza Virus Type 1 Not Detected (NOT DETECT); Parainfluenza Virus Type 2 Not Detected (NOT DETECT); Parainfluenza Virus Type 3 Not Detected (NOT DETECT); Parainfluenza Virus Type 4 Not Detected (NOT DETECT); SARS-COV-2 Not Detected (NOT DETECT)
[2025-01-29] MEDS: cefepime 1,000 mg SDV 1000 MG IVP (02:10)
[2025-01-29 03:39] LABS: C.Diff PCR (Lab) POSITIVE (Negative)
--- NOTE | 2025-01-29 04:21 | P.HP_ITS ---
Providers/Chief Complaint 2 Admitting Physician: nAette Knight MD--seen and evaluated after 12 midnight Primary Care Provider: Kelvin Naqvi Jr, MD Chief Complaint: fever History of Present Illness Jennyfer Bliss is a 29 year old female with history of cerebral palsy, permanent n.p.o. on tube feeding presented to the emergency room because she was found running fever and having diarrhea at her skilled nursing. Patient was brought in for further evaluation and care. Systolic blood patient was in the 70s patient contracts all 4 extremities very had to get a very reliable blood pressure as patient twitches on the extremities. Case discussed with the emergency room to have an art line for a reliable blood pressure. Patient had been in the emergency room for over 4 hours prior to my being consulted by the emergency room for patient's evaluation for admission. I have seen and evaluated patient patient was still doing systolic blood pressure in the 80s but will go up to 90s go up to 110 and then back to the 70s and 80s. Patient got bolused with sepsis fluid in the ED for over 2 L. Emergency room also gave patient a dose of cefepime. Stool studies sent for C. difficile and other enteric organism. Patient grew C. difficile positive. She was started on vancomycin. Patient lungs were clear no other source of infection except for C. difficile. Because of hypotension patient is being admitted to ICU and will continue with good hydration and Vancocin via the PEG tube. Patient need to have 100 free water flushes every 4 hours he had the PEG while we continue patient tube feed of Osmolite at 35 mL/h for 23 hours daily by the skilled nursing protocol. I will not start any IV antibiotics in the setting of C. difficile patient to be on Vancocin at this time via the PEG tube at 125 mg solution 4 times daily via PEG. Once patient diarrhea ceases and patient hydrated then patient will return back to skilled nursing Review of Systems 2 Narrative: Generally patient is Looks Good except for Being Awfully Pale cephalic area System review upon organ review were significant for colitis with diarrhea otherwise unremarkable Medications/Allergies Home Medications ?Medication ?Instructions ?Recorded ?Confirmed ?Last Taken ?Type lamotrigine 200 mg tablet 400 mg feeding tube BID@08,2 0 04/01/20 10/13/24 10/12/24 History rufinamide 400 mg tablet (Banzel) 1,400 mg feeding tub e BID@08,20 04/01/20 10/13/24 10/12/24 History acetaminophen 325 mg tablet 650 mg feeding tube Q4H IN N Pain 04/26/22 10/13/24 10/08/24 History (Tylenol) famotidine 20 mg tablet 20 mg feeding tube BID@08,20 04/26/22 10/13/24 10/12/24 History lactulose 10 gram/15 mL oral 10 g feeding tube DAILY@0 8 04/26/22 10/13/24 10/12/24 History solution levetiracetam 750 mg tablet 1,500 mg PO BID@, 1106/2710/13/24 10/12/24 History menthol 4 % topical gel (Biofreeze See Rx Instructions .Route .COMPLEX 04/26/22 10/13/24 10/12/24 History (menthol)) phenobarbital 30 mg tablet 60 mg feeding tube BID@08,2 0 04/26/22 10/13/24 10/12/24 History sennosides 8.6 mg-docusate sodium 1 tab PO BID@,20 1 06/26/21 10/13/24 10/12/24 History 50 mg tablet (Senna-S) magnesium hydroxide 400 mg/5 mL 30 ml peg-tube DAILY P RN 05/06/22 10/13/24 08/25/24 13:35 History oral suspension (Milk of Magnesia) constipation bisacodyl 10 mg rectal suppository 10 mg IN DAILY PRN Constipation 03/02/23 10/13/24 07/08/24 16:35 History nystatin 100,000 unit/gram topical See Rx Instructions .Route .COMPLEX 03/02/23 10/13/24 Unknown History cream sodium phosphates 19 gram-7 118 ml IN DAILY PRN Consti pation 03/02/23 10/13/24 04/27/24 19:10 History gram/118 mL enema (Nhxrl-Id-Opx Enema) baclofen 5 mg tablet 5 mg feeding tube BID 10/13/24 10/12/24 History hydrocodone 10 mg-acetaminophen 1 tab feeding tube BID PRN Pain 09/29/24 10/13/24 10/12/24 History 325 mg tablet levothyroxine 50 mcg tablet 50 mcg feeding tube DAILY 09/29/24 10/13/24 10/12/24 History white petrolatum-mineral oil 94 1 applic ophthalmic (e ye) DAILY 09/29/24 10/13/24 10/12/24 History %-3 % eye ointment urea 15 gram/scoop oral powder 10 g PO DAILY #454 gram s 10/08/24 10/13/24 10/12/24 Rx Allergies Allergy/AdvReac Type Severity Reaction Status Date / Time diphenhydramine (From Allergy ADR-Seizure Verified 01/28/25 21:14 Benadryl) PFSH Acute 2 PFSH: Medical History Hyponatremia Acute hyponatremia Hypothyroidism Panhypopituitarism Perforated tympanic membrane Seizure disorder Cerebral palsy Surgical History Status post VNS (vagus nerve stimulator) placement ? S/P percutaneous endoscopic gastrostomy (PEG) tube placement Family History Other Diabetes Hyperlipidemia Social History Smoking and tobacco/nicotine status: never used tobacco/nicotine Alcohol intake: never Substance/Drug Use: never Caregiver/support person: Yes Lives independently: No Household members: other Housing: Detention Vitals/I&O/Wt Last Vital Signs Temp 99.0 F 01/29/25 02:50 Pulse 116 H 01/29/25 03:16 Resp 26 H 01/29/25 03:16 BP 98/66 01/29/25 03:16 Pulse Ox 93 01/29/25 03:16 O2 Del Method Room Air 01/28/25 21:45 01/28/25 01/28/25 01/29/25 14:59 22:59 06:59 Intake Total 2710 / 2710 Balance 2710 / 2710 Weight last 48 hrs Weight 70.76 kg Physical Exam 2 Narrative: Try Aleve very pale in the face and neck with a hemoglobin of 11 HEENT normocephalic atraumatic neck neck is supple cardiovascular heart rate is regular lungs are pretty much clear abdomen soft nontender nondistended unremarkable. Extremities are intact no edema has good pulses but with contraction in all 4 extremities. Neurology no focality except for chronic known cerebral palsy. Data 01/28/25 21:36 01/28/25 21:36 Micro: Microbiology 01/29/25 01:31 Stool Lactoferrin - Final Stool Occult Blood (FIT) - Final 01/28/25 21:41 Blood Culture - Preliminary Blood SPECIMEN COLLECTED 01/28/25 21:36 Blood Culture - Preliminary Blood SPECIMEN COLLECTED A&P Assessment and plan 1. Fever: 2. C. difficile diarrhea: 3. Leukocytosis: 4. Sepsis: 5. Cerebral palsy: Plan: Fever - This is due to underlining C. difficile colitis diarrhea - Admit to ICU because of hypotension for optimization of care - Gentle hydration with limited IV normal saline at 75 cc/h for additional 1 L and free water flushes of 100 mL 4 hours with Osmolite tube feed at 35 mL/h for 23 hours - This will keep patient normotensive with volume - Continue Vancocin for C. difficile colitis C. difficile diarrhea - Keep patient euvolemic - Continue Vancocin 125 mg 4 times daily via PEG tube Sepsis with fever and leukocytosis secondary to volume loss via diarrhea with C. difficile diarrhea - No IV antibiotics - Continue with Vancocin 125 mg 4 times daily via PEG tube Dehydration due to volume loss via diarrhea resulting in hypotension - Continue rehydration PDMP PDMP Reviewed: Last Reviewed 01/29/25 04:38 by Anette Knight MD Attestations 2 Medical Necessity Statement*: Patient with hypotension febrile illness and tachycardia and with C. difficile diarrhea indeed need to be inpatient requiring and needing at least 2 midnights to optimize care. Coding Level of Care Code 53858 Diagnoses Fever R50.9 C. difficile diarrhea A04.72 Leukocytosis D72.829 Sepsis A41.9 Cerebral palsy G80.9 Time Spent (min) 70
--- NOTE | 2025-01-29 05:20 | PC.NURSE ---
This nurse was unable to start tube feed due to the facility not having Osmolite 1.5, attempted to locate on other floors. supervisor case loading was notified. MD Knight was contacted and made aware. ordered to wait to start until nutrition can evaluate in the morning. This nurse provided update to assisted nurse Kimani. Update also provided to guardian. correction nurse kimani states that pt receives enteral tube feeding of Osmolite 1.5 at 35/ml per her for 23 hours. States peg tube is flushed with 100cc of water q8hr. Staff also states pt is often hypotensive stating her systolic number is rarely above 100.
--- NOTE | 2025-01-29 06:57 | PC.NURSE ---
ASSUMED CARE OF PATIENT AT 0647 FROM [facility] ALFARO.
[2025-01-29 08:53] LABS: Clostridioides Difficile Toxin POSITIVE (Negative)
[2025-01-29] MEDS: dextrose 5%-sod chloride 0.9% 1,000 ML 75 ML IV ×2 (10:44→23:28)
--- NOTE | 2025-01-29 10:49 | PC.NURSE ---
RAO FROM NUTRITION NOTIFIED OF HEALTH SERVICES ADMINISTRATOR CONSULT.
--- NOTE | 2025-01-29 11:08 | P.MISC_ITS ---
Miscellaneous Note Note: seen this am in ER pt NPO, has PEG tube in place we dont have osmolite tube feeds. child support investigator consulted for nutriton consult resume tube feeds cotninue to check blood glucose q6 hours restart home medications, will review med rec continue to monitor BP c.diff positive continue on vancomycin 250 QID blood cultures pending check stool cultures continue on IV fluid d5ns @75 cc/hr asked nursing staff to call [facility] to bring her home meds as some are non-formulary
--- NOTE | 2025-01-29 11:23 | PC.NURSE ---
VERBAL ORDERS FROM DR. MCKEON TO CALL [facility] AND HAVE [facility] BRING PT HOME MEDICATIONS TO THE ED DUE TO THE INPATIENT PHARMACY NOT HAVING THEM. [facility] NOTIFIED AND VERBALIZED THAT THEY WOULD BRING THE MEDICATIONS OVER.
--- NOTE | 2025-01-29 12:02 | PC.NUTR ---
Received consult for PEG tf goals. At [facility] Pt was on Osmolite 1.5 which we do not have at [facility]. Recommend Jevity 1.5 beginning @15mls/hr increasing 10mls Q4H as tolerated until goal rate of 35mls/hr with FWF 100mls Q4H or per MD discretion.
--- NOTE | 2025-01-29 12:36 | PC.NURSE ---
patient is non-verbal
[2025-01-29] MEDS: potassium chloride oral liq 20 mEq/15 mL UDC 40 MEQ PO (13:21)
[2025-01-29] MEDS: [UNRECOGNIZED DRUG - OTHER] PO (13:22)
[2025-01-29] MEDS: UREA PO (13:22)
[2025-01-29] MEDS: LEVOTHYROXINE 50 MCG PEG-TUBE (13:23)
[2025-01-29] MEDS: LAMOTRIGINE 200 MG 400 EACH FEED TUBE (13:23)
--- NOTE | 2025-01-29 14:12 | PC.OT ---
HOLD OT EVALUATION PATIENT HAS JUST TRANSFERRED TO ICU FROM ER
[2025-01-29 14:36] LABS: Bacillus cereus group Not Detected (NOT DETECT); Bacillus subtillis group Not Detected (NOT DETECT); Corynebacterium Not Detected (NOT DETECT); Cutibacterium acnes (P.acnes) Not Detected (NOT DETECT); Enterococcus faecalis Not Detected (NOT DETECT); Enterococcus faecium Not Detected (NOT DETECT); Listeria Not Detected (NOT DETECT); Micrococcus Not Detected (NOT DETECT); Pan Candida Not Detected (NOT DETECT); Pan Gram-Negative Not Detected (NOT DETECT); Staphylococcus lugdunensis Not Detected (NOT DETECT); Streptococcus anginosus group Not Detected (NOT DETECT); Streptococcus pyogenes Not Detected (NOT DETECT); Streptococcus species Not Detected (NOT DETECT); mecC Not Detected (NOT DETECT)
[2025-01-29 14:53] LABS: Staphylococcus epidermidis Detected (NOT DETECT); Staphylococcus species Detected (NOT DETECT); mecA Detected (NOT DETECT)
--- NOTE | 2025-01-29 15:17 | PC.NURSE ---
Tube feedings started per Dieticians recommendations and verbal orders from Dr. Noe.
[2025-01-29] MEDS: RUFINAMIDE 400 MG 1400 EACH FEED TUBE (20:24)
[2025-01-30] VITALS (72 sets, daily range): BP systolic 66–117; BP diastolic 46–77; PULSE 77–101; RESP 12–30; TEMP 36.6–37.6; O2SAT 86–100
[2025-01-30 04:15] LABS: Hematocrit 30.7 % (36-47); Hemoglobin 9.10 g/dL (11.27-16.99); Mean Corpuscular HGB Conc 29.6 g/dL (30-55); Mean Corpuscular Hemoglobin 30.8 pg (27-33); Mean Corpuscular Volume 104.1 fl (85-98); Nucleated Red Blood Cells % 0 %; Platelet Count 89 10^3/cmm (157-399); Red Blood Count 2.95 10^6/uL (3.85-5.65); White Blood Count 9.43 10^3/uL (3.29-11.43)
[2025-01-30 04:40] LABS: Alanine Aminotransferase 15 U/L (0-33); Albumin Level 3.4 g/dL (3.5-5.2); Alkaline Phosphatase 148 U/L (35-105); Aspartate Amino Transferase 24 U/L (0-32); Blood Urea Nitrogen 7 mg/dL (6-20); Calcium 8.6 mg/dL (8.5-10.5); Carbon Dioxide 20 mmol/L (22-29); Chloride 106 mmol/L (98-107); Creatinine Clr Calc Pharmacy 203.7698; Globulin 3.3 g/dL (1.3-4.6); Glucose 108 mg/dL (65-115); Osmolality Calculated 279 mOsm/kg (285-295); Sodium 135 mmol/L (136-145); Total Protein 6.7 g/dL (6.6-8.7)
[2025-01-30 04:42] LABS: Anion Gap 13.0 (5-19); Potassium 4.0 mmol/L (3.5-5.1)
[2025-01-30 04:44] LABS: Slide Review Slide Review Perform
--- NOTE | 2025-01-30 07:50 | PC.NURSE ---
Scheduled Vanc dose missed/not scanned and readers' advisory service librarian gave the scheduled dose late at 0600. Spoke with nightshift nurse on the phone and she said she gave dose and it was currrenlty running upon the start of my shift. Called pharmacy for re-timing of the medication to follow medication timing.
[2025-01-30] MEDS: UREA PO (08:11)
[2025-01-30] MEDS: [UNRECOGNIZED DRUG - OTHER] PO (08:11)
[2025-01-30] MEDS: RUFINAMIDE 400 MG 1400 EACH FEED TUBE ×2 (08:11→20:11)
--- NOTE | 2025-01-30 11:55 | PM.PN ---
Subjective Subjective: Seen this morning. No acute events overnight Patient's blood pressure is soft at baseline. 99/65. MAP is always been greater than 65. She is nonverbal. Resting comfortably in bed. Does not grimace to palpation. No other complaints. Had 3 bowel movements overnight. Tube feeds are at goal and she is receiving all her home medications as ordered. shelter was able to bring them in per nursing staff. No other concerns per nursing staff at this time. Patient's nurse has taken care of her at a correction for years prior to this and is very familiar with the patient who also states that this is patient's baseline. Vitals/I&O/Wt Last Vital Signs Temp 98.0 F 01/30/25 08:30 Pulse 97 01/30/25 08:30 Resp 30 H 01/30/25 08:30 BP 81/58 01/30/25 08:30 Pulse Ox 100 01/30/25 08:30 O2 Del Method Room Air 01/29/25 12:00 01/29/25 01/30/25 01/30/25 22:59 06:59 14:59 Intake Total 300 / 712.5 1000 / 1712.5 Balance 300 / 712.5 1000 / 1712.5 Weight last 48 hrs Weight 69 kg Weight 70 kg Weight 70.76 kg Physical Exam Narrative: Alert, laying in bed. Appearing comfortable. Does have contractures. Does not grimace to palpation Lungs clear to auscultation. PEG tube in place. No edema bilateral lower extremities. Has known cerebral palsy. No gross murmurs however difficult examination secondary to severe contractures in extremities. Data 01/30/25 03:44 01/30/25 03:44 Micro: Microbiology 01/30/25 03:44 Blood Culture - Preliminary Blood SPECIMEN COLLECTED 01/30/25 03:44 Blood Culture - Preliminary Blood SPECIMEN COLLECTED 01/28/25 21:36 Blood Culture - Preliminary Blood NEGATIVE TO DATE 01/28/25 21:41 Blood Culture - Preliminary Blood Staphylococcus epidermidis A&P Assessment and plan 1. Fever: 2. C. difficile diarrhea: 3. Leukocytosis: 4. Sepsis: 5. Cerebral palsy: Plan: Fever - This is due to underlining C. difficile colitis diarrhea - Admit to ICU because of hypotension for optimization of care - Gentle hydration with limited IV normal saline at 75 cc/h for additional 1 L and free water flushes of 100 mL 4 hours with Osmolite tube feed at 35 mL/h for 23 hours - This will keep patient normotensive with volume - Continue Vancocin for C. difficile colitis C. difficile diarrhea - Keep patient euvolemic - Continue Vancocin 125 mg 4 times daily via PEG tube Sepsis with fever and leukocytosis secondary to volume loss via diarrhea with C. difficile diarrhea - No IV antibiotics - Continue with Vancocin 125 mg 4 times daily via PEG tube Dehydration due to volume loss via diarrhea resulting in hypotension - Continue rehydration 01/30/2025 Continue rehydration via PEG tube Stop IV fluids Continue tube feeds and they are at goal today. Dietitian consulted already. Continue vancomycin 254 times daily via PEG tube Continue patient's anticonvulsants: Phenobarbital, rufinamide, lamotrigine, Keppra Hold baclofen secondary to low blood pressures however it seems these BPs are patient's baseline. I may restart baclofen in AM. May transfer to medical surgical floor today. If patient remains stable by a.m. and diarrhea improves we may discharge back to nursing facility. PDMP PDMP Reviewed: Not Reviewed Attestations Medical Necessity Statement*: C. difficile diarrhea. Diagnoses Fever R50.9 C. difficile diarrhea A04.72 Leukocytosis D72.829 Sepsis A41.9 Cerebral palsy G80.9
[2025-01-30] MEDS: vancomycin 100 mg/1 mL Oral Syringe 250 MG PO ×3 (12:21→20:19)
[2025-01-30] MEDS: dextrose 5%-sod chloride 0.9% 1,000 ML 50 ML IV (13:00)
--- NOTE | 2025-01-30 13:00 | PC.NURSE ---
IV fluid rate adjusted to 50mL/hr per Dr. Moore verbal orders. see MAR
--- NOTE | 2025-01-30 15:20 | PC.SOCIAL ---
IMM UPDATED IMM dated and initialed copy given to patient and copy placed in chart.
--- NOTE | 2025-01-30 20:08 | PC.NURSE ---
Addendum entered by Tomasa Zhou RN 01/30/25 20:29: Spoke with Victorina at [facility] who said that she would bring patient's rufinamide by the hospital on the morning of 01/31. Informed her that patient would likely be on medsurg at that time as we have an order to transfer her and have not yet done so. Victorina voiced understanding. Original Note: Non-formulary medication Patient currently taking rufinamide 400 mg tablets; dose of 1400 mg BID. Medication brought to hospital by [facility] staff. Medication stored in patient's medication bin contained 2.5 tablets for a total of 1000 mg. Patient's evening dose of 1400 mg would require 3.[address] Knight gave verbal order to give the 2.5 tablets available for patient's evening dose.
--- NOTE | 2025-01-30 22:52 | PC.NURSE ---
[facility] All belongings taken with patient.
[2025-01-31 03:58] LABS: Blood Urea Nitrogen 6 mg/dL (6-20); Calcium 8.7 mg/dL (8.5-10.5); Carbon Dioxide 20 mmol/L (22-29); Chloride 103 mmol/L (98-107); Creatinine Clr Calc Pharmacy 202.4594; Glucose 106 mg/dL (65-115); Magnesium 2.0 mg/dL (1.7-2.3); Osmolality Calculated 276 mOsm/kg (285-295); Sodium 134 mmol/L (136-145)
[2025-01-31 04:00] VITALS: BP 96/57; PULSE 77; RESP 16; TEMP 36.6; O2SAT 95
[2025-01-31 04:04] LABS: Anion Gap 14.8 (5-19); Potassium 3.8 mmol/L (3.5-5.1)
--- NOTE | 2025-01-31 07:43 | P.PHAVANC_ITS ---
Vancomycin Goal - Goal Vancomycin Goal:: 15-20 mg/L - Therapy Day of therpy:: Day []of [] . Actual body weight (kg): 161 lb - Data Labs: WBC Cancelled 01/31/25 05:20 Corrected WBC Cancelled 01/31/25 05:20 RBC Cancelled 01/31/25 05:20 Hgb Cancelled 01/31/25 05:20 Hct Cancelled 01/31/25 05:20 MCV Cancelled 01/31/25 05:20 MCH Cancelled 01/31/25 05:20 MCHC Cancelled 01/31/25 05:20 RDW Cancelled 01/31/25 05:20 Sodium 134 mmol/L (136-145) L 01/31/25 03:25 Potassium 3.8 mmol/L (3.5-5.1) 01/31/25 03:25 Chloride 103 mmol/L (98-107) 01/31/25 03:25 Carbon Dioxide 20 mmol/L (22-29) L 01/31/25 03:25 Anion Gap 14.8 (5-19) 01/31/25 03:25 BUN 6 mg/dL (6-20) 01/31/25 03:25 Creatinine 0.4 mg/dL (0.5-0.9) L 01/31/25 03:25 GFR Calculation 188.7 mL/min (90-130) H 01/31/25 03:25 Treatment plan:: new consult Regimen:: PATIENT WAS STARTED ON VANCOMYCIN ON 01/29. PATIENT WAS GIVEN LOADING DOSE OF 1500 MG ON 01/29/25 AT 1640. PATIENT WAS SCHEDULED TO RECEIVE MAINTENANCE DOSE OF 1000 MG Q8H ON 01/30 AT 0200. DOSE WAS NOT GIVEN. NURSE NOTE REGARDING THIS IS FOLLOWS: Notes 01/30/25 07:50 Nurse Note by Elidia Pena Scheduled Vanc dose missed/not scanned and operations supervisor 2nd shift gave the scheduled dose late at 0600. Spoke with nightshift nurse on the phone and she said she gave dose and it was currrenlty running upon the start of my shift. Called pharmacy for re-timing of the medication to follow medication timing. MAINTENANCE DOSE OF 1000 MG Q8H WAS RESTARTED YESTERDAY, 01/30/25 AT 1400. WILL OBTAIN TROUGH AT 1300 TODAY, 01/31/25. Rationale:: Medications Vancomycin HCl 1,000 mg/ (Sodium Chloride) 250 mls @ 250 mls/hr IV Q8H [facility] Last Admin: 01/31/25 06:58 Dose: Infused Discontinued Medications Vancomycin HCl 1,000 mg/ (Sodium Chloride) 250 mls @ 250 mls/hr IV Q8H [facility] Vancomycin HCl 1,000 mg/ (Sodium Chloride) 250 mls @ 250 mls/hr IV Q8H [facility] Last Admin: 01/31/25 07:40 Dose: Not Given Microbiology 01/28/25 21:41 Blood Blood Culture - Preliminary Staphylococcus epidermidis Notes 01/30/25 07:50 Nurse Note by Elidia Pena Scheduled Vanc dose missed/not scanned and operations supervisor 2nd shift gave the scheduled dose late at 0600. Spoke with nightshift nurse on the phone and she said she gave dose and it was currrenlty running upon the start of my shift. Called pharmacy for re-timing of the medication to follow medication timing. Orders 01/31/25 13:00 Vancomycin Trough Timed Problems (Last Reviewed 01/29/25 @ 04:32 by Anette Knight MD) Sepsis (Acute) Laboratory Tests 01/29/25 01/30/25 01/31/25 01:31 03:44 03:25 WBC 9.43 Creatinine 0.4 L 0.4 L C. difficile (PCR) Positive H C.difficile Tox Confrm Positive H
[2025-01-31 07:50] VITALS: BP 90/56; PULSE 73; RESP 17; TEMP 36.8; O2SAT 98
[2025-01-31] MEDS: RUFINAMIDE 400 MG 1400 EACH FEED TUBE (08:38)
[2025-01-31] MEDS: UREA PO (08:49)
[2025-01-31] MEDS: vancomycin 100 mg/1 mL Oral Syringe 250 MG PO (08:49)
[2025-01-31] MEDS: [UNRECOGNIZED DRUG - OTHER] PO (08:49)
[2025-01-31 10:07] LABS: Hematocrit 29.4 % (36-47); Hemoglobin 9.10 g/dL (11.27-16.99); Mean Corpuscular HGB Conc 31.0 g/dL (30-55); Mean Corpuscular Hemoglobin 30.7 pg (27-33); Mean Corpuscular Volume 99.3 fl (85-98); Nucleated Red Blood Cells % 0 %; Platelet Count 194 10^3/cmm (157-399); Red Blood Count 2.96 10^6/uL (3.85-5.65); White Blood Count 5.79 10^3/uL (3.29-11.43)
[2025-01-31 11:55] VITALS: BP 90/62; PULSE 85; RESP 18; TEMP 37.2; O2SAT 95
--- NOTE | 2025-01-31 12:47 | PM.DCS ---
Discharge Providers Date of Admission: 01/29/25 03:46 Date of Discharge: January 31, 2025 Attending Provider at Admission: Anette Knight MD Attending Provider at Discharge: Tisha Noe MD Primary Care Provider: Kelvin Naqvi Jr, MD Diagnoses at Discharge Discharge Diagnosis 1. Fever: 2. C. difficile diarrhea: 3. Leukocytosis: 4. Sepsis: 5. Cerebral palsy, unspecified type: Reason for Visit Reason for Visit: fever Hospital Course Hospital Course Patient presented to the hospital with C. difficile diarrhea. Blood pressure was soft however later it was noted that she has baseline soft blood pressures however MAP is always greater than 65. That is her baseline. detention was also contacted which confirmed the above. Patient is at her baseline mental status. All home medications continued. She was given fluid hydration. Diarrhea did improve when she already had 1 bowel movement and it started to slow down prior to day of discharge. [facility] oral vancomycin to be given through the PEG tube for 9 days total to complete a 10-day course. Her baclofen was reduced to 2.5 twice daily. Patient will be discharged home in stable condition at this time and return to ER if she develops any new symptoms or worsening symptoms. The day property underwriter writing the discharge summary it is noted that patient blood culture 1 out of 4 bottles positive for Staph hominis and Staph epidermidis. These are reported on 02/02 at 3 PM. This were initially deemed to be a contaminant. Repeat blood cultures 01/30 negative to date. However at this time I will go ahead and treat patient with 10 days of linezolid through PEG tube. We will asked nursing staff to call the [facility] for them to administer medication. Physical Exam Narrative: Alert, laying in bed. Appearing comfortable. Does have contractures. Does not grimace to palpation Lungs clear to auscultation. PEG tube in place. No edema bilateral lower extremities. Has known cerebral palsy. No gross murmurs however difficult examination secondary to severe contractures in extremities. Discharge Data Studies Completed and Pending Completed Studies During Hospitalization Category Date Time Status XR chest 1V portable [id number] Stat Exams 01/28/25 21:20 Completed Pending at discharge Category Date Time Status Blood Culture AM LABS Lab 01/30/25 03:44 Results Blood Culture Stat Lab 01/28/25 21:41 Results OVA and Parasites, Conc and PE Routine Lab 01/28/25 21:23 Received Salmonella / Shigella / Campy Routine Lab 01/28/25 21:23 Received Vancomycin Trough Timed Lab 01/31/25 13:00 Ordered Radiology Impressions Chest X-Ray 01/28/25 21:20 IMPRESSION: Lungs clear Laboratory Results WBC 5.79 10^3/uL (3.29-11.43) 01/31/25 10:00 Corrected WBC Cancelled 01/31/25 05:20 RBC 2.96 10^6/uL (3.85-5.65) L 01/31/25 10:00 Hgb 9.10 g/dL (11.27-16.99) L 01/31/25 10:00 Hct 29.4 % (36-47) L 01/31/25 10:00 MCV 99.3 fl (85-98) H 01/31/25 10:00 MCH 30.7 pg (27-33) 01/31/25 10:00 MCHC 31.0 g/dL (30-55) 01/31/25 10:00 RDW 12.3 % (12.1-15.1) 01/31/25 10:00 Plt Count 194 10^3/cmm (157-399) 01/31/25 10:00 MPV 10.4 fL (7.4-10.4) 01/31/25 10:00 Gran % Cancelled 01/31/25 05:20 Neut % (Auto) 33.5 % 01/31/25 10:00 Lymph % (Auto) 49.1 % 01/31/25 10:00 Schley % (Auto) 10.4 % 01/31/25 10:00 Eos % (Auto) 6.2 % 01/31/25 10:00 Baso % (Auto) 0.5 % 01/31/25 10:00 Neut # (Auto) 1.94 10^3/uL (1.8-7.7) 01/31/25 10:00 Lymph # (Auto) 2.8 10^3/uL (0.8-4.8) 01/31/25 10:00 Schley # (Auto) 0.6 10^3/uL (0.2-0.9) 01/31/25 10:00 Eos # (Auto) 0.4 10^3/uL (0.0-0.8) 01/31/25 10:00 Baso # (Auto) 0.0 10^3/uL (0.0-0.1) 01/31/25 10:00 Absolute Gran (auto) Cancelled 01/31/25 05:20 Nucleated RBC % (auto) 0 % 01/31/25 10:00 Nucleated RBCs # 0.0 /100WBC 01/31/25 10:00 Sodium 134 mmol/L (136-145) L 01/31/25 03:25 Potassium 3.8 mmol/L (3.5-5.1) 01/31/25 03:25 Chloride 103 mmol/L (98-107) 01/31/25 03:25 Carbon Dioxide 20 mmol/L (22-29) L 01/31/25 03:25 Anion Gap 14.8 (5-19) 01/31/25 03:25 BUN 6 mg/dL (6-20) 01/31/25 03:25 Creatinine 0.4 mg/dL (0.5-0.9) L 01/31/25 03:25 GFR Calculation 188.7 mL/min (90-130) H 01/31/25 03:25 Glucose 106 mg/dL (65-115) 01/31/25 03:25 POC Glucose 90 mg/dL (70-110) 01/29/25 10:28 Calculated Osmolality 276 mOsm/kg (285-295) L 01/31/25 03:25 Lactic Acid 1.6 mmol/L (0.5-2.2) 01/28/25 21:36 Calcium 8.7 mg/dL (8.5-10.5) 01/31/25 03:25 Magnesium 2.0 mg/dL (1.7-2.3) 01/31/25 03:25 Total Bilirubin 0.3 mg/dL (0.15-1.2) 01/30/25 03:44 AST 24 U/L (0-32) 01/30/25 03:44 ALT 15 U/L (0-33) 01/30/25 03:44 Alkaline Phosphatase 148 U/L (35-105) H 01/30/25 03:44 Total Protein 6.7 g/dL (6.6-8.7) 01/30/25 03:44 Albumin 3.4 g/dL (3.5-5.2) L 01/30/25 03:44 Globulin 3.3 g/dL (1.3-4.6) 01/30/25 03:44 Urine Color Dark yellow (Yellow) A 01/28/25 22:00 Urine Appearance Clear (CLEAR) 01/28/25 22:00 Urine pH 5.0 (5-7) 01/28/25 22:00 Ur Specific [place] 1.027 (1.005-1.030) 01/28/25 22:00 Urine Protein Trace (Negative) A 01/28/25 22:00 Urine Glucose (UA) Negative (Normal) 01/28/25 22:00 Urine Ketones Trace (Negative) 01/28/25 22:00 Urine Blood Negative (Negative) 01/28/25 22:00 Urine Nitrate Negative (Negative) 01/28/25 22:00 Urine Bilirubin Negative (Negative) 01/28/25 22:00 Urine Urobilinogen 1.0 mg/dL (Negative) 01/28/25 22:00 Ur Leukocyte Esterase Trace (Negative) A 01/28/25 22:00 Urine RBC 0-2 /hpf (0-2) 01/28/25 22:00 Urine WBC 0-5 /hpf (0-5) 01/28/25 22:00 Ur Squamous Epith Cells 0-5 /hpf (0-5) 01/28/25 22:00 Amorphous Sediment Not Reportable 01/28/25 22:00 Urine Bacteria None seen /hpf (NONE) 01/28/25 22:00 Hyaline Casts 4.52 /lpf 01/28/25 22:00 Adenovirus (PCR) Not detected (NOT DETECT) 01/28/25 22:21 C. pneumoniae DNA (PCR) Not detected (NOT DETECT) 01/28/25 22:21 C. difficile (PCR) Positive (Negative) H 01/29/25 01:31 C.difficile Tox Confrm Positive (Negative) H 01/29/25 01:31 Coronavirus 229E (PCR) Not detected (NOT DETECT) 01/28/25 22:21 Human Metapneumovir PCR Not detected (NOT DETECT) 01/28/25 22:21 Influenza A (H1) PCR Not detected (NOT DETECT) 01/28/25 22:21 Influ A (H1/09) PCR Not detected (NOT DETECT) 01/28/25 22:21 Influenza A (H3) PCR Not detected (NOT DETECT) 01/28/25 22:21 Influenza Type A (PCR) Not detected (NOT DETECT) 01/28/25 22:21 Influenza Type B (PCR) Not detected (NOT DETECT) 01/28/25 22:21 M. pneumoniae (PCR) Not detected (NOT DETECT) 01/28/25 22:21 Parainfluenza 1 (PCR) Not detected (NOT DETECT) 01/28/25 22:21 Parainfluenza 2 (PCR) Not detected (NOT DETECT) 01/28/25 22:21 Parainfluenza 3 (PCR) Not detected (NOT DETECT) 01/28/25 22:21 Parainfluenza 4 (PCR) Not detected (NOT DETECT) 01/28/25 22:21 RSV Type A (PCR) Not detected (NOT DETECT) 01/28/25 22:21 RSV Type B (PCR) Not detected (NOT DETECT) 01/28/25 22:21 Entero/Rhino (PCR) Not detected (NOT DETECT) 01/28/25 22:21 SARS-CoV-2 (PCR) Not detected (NOT DETECT) 01/28/25 22:21 Vitals Last Vital Signs Temp 98.9 F 01/31/25 11:55 Pulse 85 01/31/25 11:55 Resp 18 01/31/25 11:55 BP 90/62 01/31/25 11:55 Pulse Ox 95 01/31/25 11:55 O2 Del Method Room Air 01/30/25 04:00 Discharge Plan Discharge Patient Disposition: Xfer SNF Condition: Stable Prescriptions: New vancomycin 250 mg capsule 250 mg feeding tube QID 9 Days Qty: 36 0RF linezolid 600 mg tablet 600 mg feeding tube BID 10 Days Qty: 20 0RF Continued lamotrigine 200 mg tablet 400 mg feeding tube BID@, rufinamide [Banzel] 400 mg tablet 1,400 mg feeding tube BID@, magnesium hydroxide [Milk of Magnesia] 400 mg/5 mL suspension 30 ml peg-tube DAILY PRN (Reason: constipation) hydrocodone-acetaminophen 10-325 mg tablet 1 tab feeding tube BID PRN (Reason: Pain) levothyroxine 50 mcg tablet 50 mcg feeding tube DAILY GenTeal Tears Severe(petrolat) 94-3 % Ointment 1 applic OPHTHALMIC (EYE) DAILY urea 15 gram/scoop powder 10 g PO DAILY Qty: 454 0RF acetaminophen [Tylenol] 325 mg Tablet 650 mg feeding tube Q4H PRN (Reason: Pain) sennosides-docusate sodium [Senna-S] 8.6-50 mg Tablet 1 tab PO BID@08,20 Rx Instructions: MAY HOLD FOR LOOSE STOOLS famotidine 20 mg tablet 20 mg feeding tube BID@08,20 phenobarbital 30 mg tablet 60 mg feeding tube BID@08,20 levetiracetam 750 mg tablet 1,500 mg PO BID@08,20 lactulose 10 gram/15 mL solution 10 g feeding tube DAILY@08 Rx Instructions: may hold for loose stools Biofreeze (menthol) 4 % Gel See Rx Instructions .ROUTE .COMPLEX Rx Instructions: Apply to left shoulder topically three times a day @09:00,14:00,21:00 bisacodyl 10 mg Suppository [address] DAILY PRN (Reason: Constipation) nystatin 100,000 unit/gram cream See Rx Instructions .ROUTE .COMPLEX Rx Instructions: APPLY TO G-TUBE SITE TOPICALLY TWO TIMES A DAY FOR REDNESS TO G-TUBE SITE (CLEANSE G-TUBE SITE WITH NS PAT DRY APPLY A THIN FILM OF CREAM OVER WITH SPLIT SPONGE) [id number] Enema 19-7 gram/118 mL Enema [address] DAILY PRN (Reason: Constipation) Changed baclofen 5 mg tablet 2.5 mg feeding tube BID Qty: 30 0RF Discharge Order = DC NOW: Discharge Order (Routine); Ordered 01/31/25 Ordered By: Tisha Noe Referrals: [facility] [Outside] [facility] [Outside] - 4-7 days Referral Note: We have notified your physician's clinic of the need for a follow-up appointment to be scheduled. If you have not heard from them within the next 2 business days, please call them directly. Kelvin Naqvi Jr, MD [Primary Care Provider, [facility]] - 4-7 days Discharge Diet: Resume prior tube feeds Discharge Activity: Resume usual activity Patient Instructions: Opioid Safety, Patient Portal & Colleen Instructions Discharge Attestations Time Spent in Discharge Care*: greater than 30 min Status at Discharge: Cognitive status at discharge: severely impaired cognition (At baseline however. ), Quality Metrics Clinical Quality Measures [ No reported AMI, CVA or VTE this stay] Coding Level of Care Code Acute Code for Chg Fwd Diagnoses Fever R50.9 C. difficile diarrhea A04.72 Leukocytosis D72.829 Sepsis A41.9 Cerebral palsy, unspecified type G80.9
--- NOTE | 2025-01-31 13:27 | PC.NURSE ---
Called Report and spoke to Sapphire at [facility], called [facility] spoke to [place] who stated there was one ahead of her.
--- NOTE | 2025-01-31 16:19 | PC.NURSE ---
Discharge Note Patient discharged to [facility] via ambulance accompanied by ambulance personnel. Discharge instructions reviewed with patient and/or patient registration representative. Mobile pharmacy medications and/or prescriptions provided. Belongings/home medications returned.
[2025-01-31 17:17] VITALS: BP 90/62; PULSE 85; RESP 18; TEMP 37.2; O2SAT 95
== END 2025-01-31 15:45 | disposition intermediate care facility (04) | DRG 872 ==
LOC: ER 01-29 03:41 → ER IP 01-29 03:50 → ICU 01-29 11:31 → MEDSURG 01-30 22:53
PROVIDERS: Admitting Provider Internal Medicine; Emergency Provider Student in an Organized Health Care Education/Training Program; PCP Family Medicine; Visit Provider Internal Medicine
DX: A41.9 Sepsis, unspecified organism (principal); A04.72 Enterocolitis due to Clostridium difficile, not specified as recurrent; G80.9 Cerebral palsy, unspecified; E86.0 Dehydration; E03.9 Hypothyroidism, unspecified; G40.909 Epilepsy, unspecified, not intractable, without status epilepticus; Z93.1 Gastrostomy status
CPT/HCPCS: 36415; 36416; 51701; 71045; 80048; 80053; 81001; 82274; 82962; 83605; 83630; 83735; 85025; 87040; 87045; 87077; 87150; 87177; 87186; 87205; 87209; 87324; 87427; 87449; 87486; 87493; 87581; 87633; 93005; 96372; 96374; 97161; 97167; 99285; J0692; J1650; J3373; J7030; J7042; J7050; J9999

== ENCOUNTER 2025-04-24 15:04 | Emergency (ER) | payer OTHER, MEDICAID, SELFPAY ==
[2025-04-24 15:18] VITALS: PULSE 121; RESP 16; TEMP 36; O2SAT 94; BMI 29.9
[2025-04-24] MEDS: etomidate 2 mg/mL INJ SDV 10 mL 20 MG IVP (15:20)
[2025-04-24] MEDS: succinylcholine 20 mg/mL SDV 10mL 100 MG IVP (15:40)
--- NOTE | 2025-04-24 15:50 | ED_ITS ---
HPI - SOB/Dyspnea General: Chief Complaint: Shortness of Breath/Dyspnea Stated Complaint: sob Time Seen by Provider: 04/24/25 15:31 Source: EMS Mode of arrival: EMS Limitations: altered mental status History of Present Illness: HPI Narrative: 30-year-old female history of multiple m edical issues including cerebral palsy. Per EMS they were called this patient had been hypoxic and having shallow breathing for 2 hours. EMS states when they arrived her pulse ox was 60% they did place an Igel in place. Patient has not been responding with them as unresponsive. Tachycardia. Blood pressure EMS was in the 110s. No known recent illness. Related Data Home Medications ?Medication ?Instructions ?Recorded ?Confirmed lamotrigine 200 mg tablet 400 mg feeding tube BID@, 0 04/01/20 01/29/25 rufinamide 400 mg tablet (Banzel) 1,400 mg feeding tub e BID@,04/01/20 01/29/25 acetaminophen 325 mg tablet 650 mg feeding tube Q4H NC N Pain 04/26/22 01/29/25 (Tylenol) famotidine 20 mg tablet 20 mg feeding tube BID@04/26/22 01/29/25 lactulose 10 gram/15 mL oral 10 g feeding tube DAILY@0 8 04/26/22 01/29/25 solution levetiracetam 750 mg tablet 1,500 mg PO BID@ 1106/2701/29/25 menthol 4 % topical gel (Biofreeze See Rx Instructions .Route .COMPLEX 04/26/22 01/29/25 (menthol)) phenobarbital 30 mg tablet 60 mg feeding tube BID@,2 0 04/26/22 01/29/25 sennosides 8.6 mg-docusate sodium 1 tab PO BID@ 1 06/26/21 01/29/25 50 mg tablet (Senna-S) magnesium hydroxide 400 mg/5 mL 30 ml peg-tube DAILY P RN 05/06/22 01/29/25 oral suspension (Milk of Magnesia) constipation bisacodyl 10 mg rectal suppository 10 mg NC DAILY PRN Constipation 03/02/23 01/29/25 nystatin 100,000 unit/gram topical See Rx Instructions .Route .COMPLEX 03/02/23 01/29/25 cream sodium phosphates 19 gram-7 118 ml NC DAILY PRN Consti pation 03/02/23 01/29/25 gram/118 mL enema (Ctxev-Wq-Iwt Enema) hydrocodone 10 mg-acetaminophen 1 tab feeding tube BID PRN Pain 09/29/24 01/29/25 325 mg tablet levothyroxine 50 mcg tablet 50 mcg feeding tube DAILY 09/29/24 01/29/25 white petrolatum-mineral oil 94 1 applic ophthalmic (e ye) DAILY 09/29/24 01/29/25 %-3 % eye ointment (GenTeal Tears Severe (petrolatum-mineral oil)) Previous Rx's ?Medication ?Instructions ?Recorded urea 15 gram/scoop oral powder 10 g PO DAILY #454 gram s 10/08/24 baclofen 5 mg tablet 2.5 mg (1/2 x 5 mg) feeding tube 01/31/25 BID #30 tabs Allergies Allergy/AdvReac Type Severity Reaction Status Date / Time diphenhydramine (From Allergy ADR-Seizure Verified 01/28/25 21:14 Benadryl) Review of Systems General: Reports: ROS unobtainable due to mental status [facility] PFSH: Medical History Hyponatremia Acute hyponatremia Hypothyroidism Panhypopituitarism Perforated tympanic membrane Seizure disorder Cerebral palsy Surgical History (Updated 01/29/25 @ 06:58 by Anette Knight MD) Status post VNS (vagus nerve stimulator) placement ? S/P percutaneous endoscopic gastrostomy (PEG) tube placement Patient on [facility]sm[facility] the [facility] Family History Other Diabetes Hyperlipidemia Social History Smoking and tobacco/nicotine status: never used tobacco/nicotine Alcohol intake: never Substance/Drug Use: never Caregiver/support person: Yes Lives independently: No Household members: other Housing: Correction Physical Exam Const: EXAM LIMITATIONS: altered mental status GENERAL APPEARANCE: ill appearing and frail appearing HENMT: COMMON NORMALS: normocephalic and atraumatic HEAD & SCALP: normocephalic and atraumatic Neck/C-Spine: COMMON NORMALS: full ROM and supple Chest: COMMONS NORMALS: normal inspection of the chest Resp: OTHER: I-gel is in place good chest rise Cardio: COMMON NORMALS: regular rhythm and No murmurs present (Cardio) RATE: tachycardic RHYTHM: regular rhythm GI: COMMON NORMALS: Normal to inspection, nondistended, normoactive bowel sounds present, Soft to palpation, non-tender and no masses PALPATION: Yes Soft to palpation Extremity: COMMON NORMALS: normal to inspection and full ROM Neuro: COMMON NORMALS: negative for moves all extremities Psych: COMMON NORMALS: negative for mental status grossly normal Skin: COMMON NORMALS: no rashes or lesions noted and no wounds GENERAL SKIN EXAM: no rashes or lesions noted Procedures Intubation Time out performed: No sedative: Etomidate Mg Given: 20 paralytic: Succinylcholine Mg Given: 100 Laryngoscope: Magaly ET Tube Size: 8 ET Tube Uncuffed: No Tube Secured Depth (cm): 25 Tube Secured Location: teeth Tube Placement Confirmation: visualized tube passing through cords, equal breath sounds bilaterally, no breath sounds over epigastrium and confirmation by capnometry Course Vital Signs: Vital signs: Vital Signs Temperature 96.8 F L 04/24/25 15:18 Pulse Rate 121 H 04/24/25 15:18 Respiratory Rate 16 04/24/25 15:18 Pulse Oximetry 94 04/24/25 15:18 Oxygen Delivery Me thod Mechanical Ventil ation 04/24/25 15:18 MDM - SOB/Dyspnea Medical Decision Making Patient presented here with hypoxia along with agonal respirations had an Igel in place with EMS. Per EMS has been going on for hours at home. Patient was tachycardic originally here did intubate patient replaced i-gel patient had a arrest right after intubation. CPR was immediately started she received 3 rounds of epinephrine. Each pulse check showed PEA on the last pulse check showed asystole I did a ultrasound of her heart that showed no cardiac activity. Time of was called at 1530. Medical Records I reviewed the patient's medical records. No radiology studies performed this visit Discharge Plan Discharge Condition: Stable Prescriptions: No Action lamotrigine 200 mg tablet 400 mg feeding tube BID@08,20 rufinamide [Banzel] 400 mg tablet 1,400 mg feeding tube BID@08,20 magnesium hydroxide [Milk of Magnesia] 400 mg/5 mL suspension 30 ml peg-tube DAILY PRN (Reason: constipation) hydrocodone-acetaminophen 10-325 mg tablet 1 tab feeding tube BID PRN (Reason: Pain) levothyroxine 50 mcg tablet 50 mcg feeding tube DAILY GenTeal Tears Severe(petrolat) 94-3 % Ointment 1 applic OPHTHALMIC (EYE) DAILY urea 15 gram/scoop powder 10 g PO DAILY Qty: 454 0RF baclofen 5 mg tablet 2.5 mg feeding tube BID Qty: 30 0RF acetaminophen [Tylenol] 325 mg Tablet 650 mg feeding tube Q4H PRN (Reason: Pain) sennosides-docusate sodium [Senna-S] 8.6-50 mg Tablet 1 tab PO BID@08,20 Rx Instructions: MAY HOLD FOR LOOSE STOOLS famotidine 20 mg tablet 20 mg feeding tube BID@08,20 phenobarbital 30 mg tablet 60 mg feeding tube BID@08,20 levetiracetam 750 mg tablet 1,500 mg PO BID@08,20 lactulose 10 gram/15 mL solution 10 g feeding tube DAILY@08 Rx Instructions: may hold for loose stools Biofreeze (menthol) 4 % Gel See Rx Instructions .ROUTE .COMPLEX Rx Instructions: Apply to left shoulder topically three times a day @09:00,14:00,21:00 bisacodyl 10 mg Suppository 10 mg NC DAILY PRN (Reason: Constipation) nystatin 100,000 unit/gram cream See Rx Instructions .ROUTE .COMPLEX Rx Instructions: APPLY TO G-TUBE SITE TOPICALLY TWO TIMES A DAY FOR REDNESS TO G-TUBE SITE (CLEANSE G-TUBE SITE WITH NS PAT DRY APPLY A THIN FILM OF CREAM OVER WITH SPLIT SPONGE) [id number]-Gq-Bar Enema 19-7 gram/118 mL Enema 118 ml NC DAILY PRN (Reason: Constipation) Referrals: Kelvin Naqvi Jr, MD [Primary Care Provider, Family Practice] Print Language: Indonesian Coding Level of Care Code ED Research [employer] for [employer]
--- NOTE | 2025-04-24 16:05 | PC.NURSE ---
MTS contacted on patient expiration. Patient has been placed on a hold with [facility]. [facility].
--- NOTE | 2025-04-24 18:05 | PC.NURSE ---
[place] [facility] [place] that [facility] had reported pt as SOB earlier in day and placed on 2lnc and left for re- eval. EMS report when they arrived and pt was guppy breathing, cyanotic to lips and sats at 67% 2lnc. Pt brought in with I- Gel airway, pupils fixed. Iv access and IO access, pt placed on cardiac monitoring and zoll pads. Unable to obtain BP. Per Dr Browne, @1520- etomidate 20mg then Succ 100mg ivp, Pt intubated by Dr Browne with respiratory. Pulse check and compressions started. @ 1523 Epi given, PEA on monitor @1525, @1527- pulse check, epi, PEA, @1528- 1gm mag given, 1529- pulse check PEA TOD called 1530.
--- OUTSIDE RECORDS SUMMARY | 2025-04-24 18:11 | XMS_ITS ---
Author Organization Merged With [facility] are Care Team Providers Care Triage Rn Name Role Phone Chan Maddox Unavailable Unavailable Gilberto Laughlin Unavailable Unavailable Case Anderson Unavailable Unavailable Epise, Tapan Unavailable Unavailable Omar Renee Unavailable Unavailable Carrie Maddox Unavailable Unavailable Litzy Coles Unavailable Unavailable Kelvin Hamilton Unavailable Unavailable Allergies and adverse reactions Code CodeSystem Substance Reaction Severity StartDate Concern Status Benadryl Severe 11/01/2020 active Care Team Name Role Address Phone Organization Dates Gilberto Laughlin PCP [address] [place], [place], [facility], [place] (Office): [facility] 05/09/2022 - present Chan Maddox [address] [place], [address], [facility] (Office): : [facility] 05/09/2022 - present Case Anderson [address] [place], [address], [facility] (Office): [facility] 05/09/2022 - present Tapan Chowdaryse [address] [place], [place], [address] [place] [address] (Office): [facility] 05/09/2022 - present Omar Renee [address] [place], [place], [address] [place] [address] (Office): : [facility] 05/09/2022 - present Carrie Maddox [address] (Office): : [facility] 05/09/2022 - present Litzy Coles [address] (Office): [facility] 05/09/2022 - present Kelvin Hamilton [address] [place], [place], [address] [place] [address] (Office): [facility] 05/09/2022 - present Encounters Encounter Type Code Code System Description Performer Discharge Disposition Service Delivery Location Date Ambulatory Encounter CPT Code = [id number] Sepsis [id number] [facility] Address: [address] [place] [address]. 11/01 Ambulatory Encounter CPT Code = [id number] Metabolic encephalopathy [id number] [facility] Address: [address] [place] [address]. 11/01 Ambulatory Encounter CPT Code = [id number] Cerebral palsy [id number] [place] [address] Address: [address] [place] [address]. 11/01 Ambulatory Encounter CPT Code = [id number] Clostridium difficile colitis [id number] [facility] Address: [address] [place] [address]. 11/01 Ambulatory Encounter CPT Code = [address] Neutrophil count [id number] [facility] Address: [address] [place] [address]. 11/01 Ambulatory Encounter CPT Code = [id number] Pneumonia caused by respiratory syncytial virus [id number] [facility] Address: [address] [place] [address]. 11/01 Ambulatory Encounter CPT Code = [id number] Altered mental status [id number] [facility] Address: [address] [place] [address]. 11/01 Ambulatory Encounter CPT Code = [id number] Hypo-osmolality and or hyponatremia [id number] [facility] Address: [address] [place] [address]. 11/01 Ambulatory Encounter CPT Code = [address] Mixed receptive-express jemma language disorder [id number] [place] [address] Address: [address] [place] [address]. 11/01 Ambulatory Encounter CPT Code = [address] Epilepsy [id number] [place] [address] Address: [address] [place] [address]. 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 11/01 Ambulatory Encounter CPT Code = [id number] Hypo-osmolality and or hyponatremia [id number] [place] [address] Address: [address] [place] [address]. 11/01 Ambulatory Encounter CPT Code = [address] Hypothyroidism [id number] [place] [address] Address: [address] [place] [address]. 11/01 Ambulatory Encounter CPT Code = [address] Low blood pressure [id number] [facility] Address: [address] [place] [address]. 11/01 Ambulatory Encounter CPT Code = [address] Gastrostomy present [id number] [place] [address] Address: [address] [place] [address]. 11/01 Ambulatory Encounter CPT Code = [address] Dysphagia [id number] [place] [address] Address: [address] [place] [address]. 11/01 Ambulatory Encounter CPT Code = [id number] Implantation of neurostimulator device [address] Address: [address] [place] [address]. 11/01 Ambulatory Encounter CPT Code = [address] Anxiety disorder [id number] [place] [address] Address: [address] [place] [address]. 11/01 Ambulatory Encounter CPT Code = [address] Anemia of chronic disease [id number] [place] [address] Address: [address] [place] [address]. 11/01 Ambulatory Encounter CPT Code = [id number] Functional quadriplegia [id number] [place] [address] Address: [address] [place] [address]. 11/01 Ambulatory Encounter CPT Code = [address] Tetraplegia [id number] [place] [address] Address: [address] [place] [address]. 11/01 Ambulatory Encounter CPT Code = [address] Otitis media [id number] [place] [address] Address: [address] [place] [address]. 11/01 Ambulatory Encounter CPT Code = [address] Herpesviral vesicular dermatitis [id number] [place] [address] Address: [address] [place] [address]. 11/01 Ambulatory Encounter CPT Code = [address] Cough [id number] [facility] Address: [address] [place] [address]. 11/01 Ambulatory Encounter CPT Code = [address] Acute bronchitis [id number] [place] [address] Address: [address] [place] [address]. 11/01 Ambulatory Encounter CPT Code = [address] Dyspnea [id number] [place] [address] Address: [address] [place] [address]. 11/01 Ambulatory Encounter CPT Code = [id number] COVID-[id number] [place] [address] Address: [address] [place] [address]. 11/01 Ambulatory Encounter CPT Code = [address] Abrasion of skin of nose [id number] [facility] Address: [address] [place] [address]. 11/01 Ambulatory Encounter CPT Code = [address] Candidiasis [id number] [facility] Address: [address] [place] [address]. 11/01 Ambulatory Encounter CPT Code = [address] Cough [id number] [facility] Address: [address] [place] [address]. 11/01 Ambulatory Encounter CPT Code = [address] Wheezing [id number] [place] [address] Address: [address] [place] [address]. 11/01 Ambulatory Encounter CPT Code = [address] Postoperative care [id number] [place] [address] Address: [address] [place] [address]. 11/01 Ambulatory Encounter CPT Code = [address] Disorder of integument [id number] [place] [address] Address: [address] [place] [address]. 11/01 Ambulatory Encounter CPT Code = [address] Intertrigo [id number] [place] [address] Address: [address] [place] [address]. 11/01 Ambulatory Encounter CPT Code = [address] Metabolic encephalopathy [id number] [place] [address] Address: [address] [place] [address]. 11/01 Ambulatory Encounter CPT Code = [address] Hypo-osmolality and or hyponatremia [id number] [place] [address] Address: [address] [place] [address]. 11/01 Ambulatory Encounter CPT Code = [address] Pneumonia [id number] [place] [address] Address: [address] [place] [address]. 11/01 Ambulatory Encounter CPT Code = [id number] Influenza caused by seasonal influenza virus [id number] [place] [address] Address: [address] [place] [address]. 11/01 Ambulatory Encounter CPT Code = [address] Viral disease [id number] [place] [address] Address: [address] [place] [address]. 11/01 Ambulatory Encounter CPT Code = [address] Abscess of lung with pneumonia [id number] [place] [address] Address: [address] [place] [address]. 11/01 Ambulatory Encounter CPT Code = [address] Cough [id number] [place] [address] Address: [address] [place] [address]. 11/01 Ambulatory Encounter CPT Code = [address] Disorder of integument [id number] [facility] Address: [address] [place] [address]. 11/01 Ambulatory Encounter CPT Code = [address] Wheezing [id number] [place] [address] Address: [address] [place] [address]. 11/01 Ambulatory Encounter CPT Code = [id number] Wound dehiscence [address] Address: [address] [place] [address]. 11/01 Ambulatory Encounter CPT Code = [address] Tear film insufficiency [id number] [place] [address] Address: [address] [place] [address]. 11/01 Ambulatory Encounter CPT Code = [address] Constipation [id number] [place] [address] Address: [address] [place] [address]. 11/01 Ambulatory Encounter CPT Code = [address] Pain [id number] [place] [address] Address: [address] [place] [address]. 11/01 Ambulatory Encounter CPT Code = [address] Perforation of tympanic membrane [id number] [facility] Address: [address] [place] [address]. 11/01 Ambulatory Encounter CPT Code = [id number] Cognitive communication disorder [id number] [place] [address] Address: [address] [place] [address]. 11/01 Ambulatory Encounter CPT Code = [address] Cough [id number] [place] [address] Address: [address] [place] [address]. 11/01 Ambulatory Encounter CPT Code = [address] Patient encounter procedure [id number] [place] [address] Address: [address] [place] [address]. 11/01 Ambulatory Encounter CPT Code = [address] Muscle weakness [id number] [facility] Address: [address] [place] [address]. 11/01 Ambulatory Encounter CPT Code = [id number] Gastroesophageal reflux disease without esophagitis [id number] [facility] Address: [address] [place] [address]. 11/01 Goals Section Goals Description Status Target Date Enhanced Barrier Precautions will be utilized pe r protocol daily Active 04/15/2025 Fluid balance will be mainta ined through next review date as evidenced by appropriate amount of urination and no s/s of dehydration. Active 04/15/2025 N/A Active 04/15/2025 Resident Intake of Nutrients Will Meet Metabolic Needs Active 04/15/2025 Resident Will Be Free of Falls Active 1 06/15/2024 Resident Will Remain Hydrated Active Resident Will Show No Signs / Symptoms of Infect ion Active 04/15/2025 Resident will not have adver se effects r/t usage of medications with Black Box Warnings. Active 04/15/2025 Jayesh will remain COVID-19 free throughout next re view period. Active 04/15/2025 Jayesh will remain free of falls throughout the rev iew period. Active 04/15/2025 Jennyfer will be seizure free for the next 90 da ys. Active 04/15/2025 Jennyfer will have ADL's com pleted and have good hygiene and have all ADL's completed as are needed. Active 04/15/2025 Jennyfer will receive adequate nutrition to main tain weight. Active 04/15/2025 Jennyfer will receive adequa te nutrition without side effects associated with tube feedings (aspiration, diarrhea, dehydration). Active 04/15/2025 Jennyfer will remain free of skin breakdown over the next 90 days. Active 04/15/2025 The resident will be able to function at the fullest potential possible as outlined by the treatment team. Active 04/15/2025 The resident/Family/caregive r will be able to verbalize an understanding of the condition and the importance of compliance with the treatment program. Active 04/15/2025 Functional Status Code Name Recorded Time Value Entered By Ambulation 04/24/2025 Not assessed gtooley Ambulation 04/24/2025 Total Dependence gtooley Ambulation 04/24/2025 Not assessed gtooley Ambulation 04/24/2025 Not assessed gtooley Bathing 04/12/2025 Total Dependence ncollins Dressing 04/24/2025 Total Dependence gtooley Feeding or Eating 04/24/2025 Total Dependence CColvi n002 Toileting 04/24/2025 Not assessed gtooley Transferring 04/24/2025 Total Dependence gtooley Immunizations Immunization Status Vaccine Details Vaccine Code CodeSystem Date Notes Influenza completed Influenza, high-dose, split virus, quadrivalent, injectable, preservative free lotNumber: [id number] expiry: 11/04/2023 Mfg: Afluria Quadrivalent Given 0.5 ml Right Deltoid intramuscularly 197 CVX created date: 04/05/2023 consent date: 04/05/2023 administer ed date: 04/05/2023 Influenza completed Influenza, high-dose, split virus, quadrivalent, injectable, preservative free lotNumber: [id number] expiry: 11/04/2021 Mfg: Afluria Given 0.5 ml Left Deltoid intramuscularly 197 CVX created date: 06/19/2021 administer ed date: 03/27/2021 Diphtheria completed tetanus toxoid, reduced diphtheria toxoid, and acellular pertussis vaccine, adsorbed lotNumber: [id number] expiry: 07/08/2022 Given 0.5 ml Right Deltoid intramuscularly 115 CVX created date: 06/18/2022 consent date: 06/18/2022 administer ed date: 06/14/2022 SARS-COV-2 (COVID-19) completed SARS-COV-2 (COVID-19) vaccine, mRNA, spike protein, LNP, preservative free, 10 mcg/0.2mL dose, perfecto-sucrose formulation lotNumber: [id number] expiry: 06/03/2021 Mfg: Moderna Given 0.5 ml Left Deltoid intramuscularly Step 2 of Multi-step with next step required 218 CVX created date: 08/19/2021 consent date: 08/19/2021 administer ed date: 01/23/2021 SARS-COV-2 (COVID-19) completed SARS-COV-2 (COVID-19) vaccine, mRNA, spike protein, LNP, preservative free, 100 mcg/0.5mL dose or 50 mcg/0.25mL dose lotNumber: [id number] Mfg: Moderna Given 0.5 ml intramuscularly Step 1 of Multi-step with next step required 207 CVX created date: 06/19/2021 administer ed date: 12/19/2020 SARS - COV2 (Moderna) Booster completed SARS-COV-2 (COVID-19) vaccine, mRNA, spike protein, LNP, preservative free, 100 mcg/0.5mL dose or 50 mcg/0.25mL dose lotNumber: [id number] expiry: 09/18/2023 Mfg: Spikevax Given 0.5 ml Right Deltoid intramuscularly 207 CVX created date: 07/08/2023 consent date: 07/08/2023 administer ed date: 07/08/2023 Moderna Bivalent completed SARS-COV-2 (COVID-19) vaccine, mRNA, spike protein, LNP, bivalent, preservative free, 50 mcg/0.5 mL or 25 mcg/0.25 mL dose lotNumber: [id number] expiry: 07/08/2022 Given 0.5 ml Right Deltoid intramuscularly 229 CVX created date: 06/18/2022 consent date: 06/18/2022 administer ed date: 06/14/2022 Influenza, seasonal, injectable completed Influenza, split virus, trivalent, injectable, contains preservative lotNumber: [id number] expiry: 11/02/2025 Mfg: Seqirus PTYLTD 141 CVX created date: 03/22/2025 consent date: 03/20/2025 administer ed date: 03/20/2025 Influenza, seasonal, injectable completed Influenza, split virus, trivalent, injectable, contains preservative lotNumber: [id number] expiry: 12/03/2024 Mfg: [employer] Given 0.5 ml Left Deltoid intramuscularly 141 CVX created date: 03/21/2024 consent date: 03/21/2024 administer ed date: 03/21/2024 Educated by michael on 03/21/2024 Medications Section Medication Name Status Code CodeSystem Dose Route Frequency Admin Type Sig Text Start Date End Date Indication BISACODYL SUP 10MG active 9 RXNORM 1 suppo sitor y Rectal as needed PRN INSER T 1 SUPPO SITOR Y RECTA LLY ONE TIME DAILY NEEDE D(Ind icati ons for Use: Const ipati on) 2021 - Constipatio n ACETAMINOPH E TAB 325MG active 15450 2 RXNORM 2 table t Oral as needed PRN GIVE TWO TABLE TS (650M G) PER TUBE EVERY FOUR HOURS NEEDE D FOR PAIN OR FEVER (Vangie catio ns for Use: [place] vipul [place] ratur e) 2021 - Elevated Temperature ;Pain ENEMA READY- CALEB -TO-USE active 86014 5 RXNORM 1 appli cator ful Rectal as needed PRN USE 1 RECTA LLY ONE TIME DAILY NEEDE D(Ind icati ons for Use: Const ipati on) 2021 - Constipatio n PHENobarbit al Tablet 30 MG active 35836 3 RXNORM 2 table t Oral two times a day Routin e Give 2 table t via PEG-T ube two times a day 2021 - - Rufinamide Tablet active 3.5 table t Oral two times a day Routin e Give 3.5 table t via PEG-T ube two times a day for give 3.5ta bs to equal 1400m g BID 2021 - give 3.5tabs to equal 1400mg BID Famotidine Tablet 20 MG active 28950 3 RXNORM 1 table t Oral two times a day Routin e Give 1 table t via PEG-T ube two times a day relat ed to GASTR O-ESO PHAGE AL REFLU X DISEA SE WITHO UT ESOPH AGITI S (K21. 9) 2021 - - Biofreeze Liquid active n/a n/a Topica l three times a day Routin e Apply to left shoul cornelio topic ally three times a day relat ed to CEREB RAL PALSY , UNSPE CIFIE D (G80. 9) 2021 - - Milk of Magnesia Suspension 400 MG/5ML active 82985 7 RXNORM 30 ml Oral as needed PRN Give 30 ml via G-Tub e every 24 hours as neede d for const ipati on 2021 - constipatio n Stool Softener Laxative Tablet 8.6-50 MG active 77671 0 RXNORM 1 table t Oral two times a day Routin e Give 1 table t via NJ-Tu be two times a day for const ipati on October hold for loose stool s 2022 - constipatio n LACTULOSE LOUIE 10GM/15 active 86484 7 RXNORM 10 gram Oral one time a day Routin e Give 10 gram via PEG-T ube one time a day for const ipati on October for loose stool s 2022 - constipatio n levETIRAcet am Tablet 750 MG active 30820 0 RXNORM 2 table t Oral two times a day Routin e Give 2 table t via PEG-T ube two times a day for EPILE PSY 2022 - EPILEPSY lamoTRIgine Tablet active 2 table t Oral two times a day Routin e Give 2 table t via PEG-T ube two times a day for EPILE PSY 2022 - EPILEPSY GenTeal Tears Night-Time Ointment active 1 appli catio n Ophtha lmic at bedtime Routin e Insti ll 1 appli catio n in both eyes at bedti me for DRY EYE 2022 - DRY EYE Hydrocodone -Acetaminop hen Tablet 10-325 MG active 18941 9 RXNORM 1 table t Oral two times a day Routin e Give 1 table t via G-Tub e two times a day for Pain 2022 - Pain Levothyroxi ne Sodium Oral Tablet 50 MCG active 92891 1 RXNORM 1 table t Oral one time a day Routin e Give 1 table t via G-Tub e one time a day for HYPOT HYROI DISM, UNSPE CIFIE D (E03. 9) 2023 - HYPOTHYROID ISM, UNSPECIFIED (E03.9) Nystatin Cream 526279 UNIT/GM active 80246 6 RXNORM n/a n/a Topica l as needed PRN Apply to Neck Folds topic ally as neede d for redne ss/ra shing 2023 - redness/tanner anita Baclofen Oral Tablet 5 MG aborted 90914 2 RXNORM 0.5 table t Oral two times a day Routin e Give 0.5 table t via J-Tub e two times a day for muscl e spasm s 04/09 muscle spasms Urea Powder active 10 gram Oral two times a day Routin e Give 10 gram via G-Tub e two times a day for hypon atrem ia 2024 - hyponatremi a predniSONE Oral Tablet 20 MG active 40757 5 RXNORM 2 table t Oral one time a day Routin e Give 2 table t via PEG-T ube one time a day for Fever and respi rator y sympt oms for 1 Admin istra tions 04/25 Fever and respiratory symptoms predniSONE Oral Tablet 20 MG active 65782 5 RXNORM 2 table t Oral one time a day Routin e Give 2 table t via PEG-T ube one time a day for Fever and respi rator y sympt oms for 6 Days 05/01 Fever and respiratory symptoms Levaquin Oral Tablet 750 MG active 1 table t Oral one time a day Routin e Give 1 table t via PEG-T ube one time a day for Fever and respi rator y sympt oms for 6 Days 05/01 Fever and respiratory symptoms Levaquin Oral Tablet 750 MG active 1 table t Oral one time a day Routin e Give 1 table t via PEG-T ube one time a day for Fever and respi rator y sympt oms for 1 Admin istra tions 04/25 Fever and respiratory symptoms Albuterol Sulfate Inhalation Nebulizatio n Solution (2.5 MG/3ML) 0.083% active 55320 8 RXNORM 1 vial Inhala tion every 8 hours Routin e 1 vial inhal e orall y via nebul izer every 8 hours for Short ness of breat h and cough 2024 - Shortness of breath and cough Mental Status Section Date Assessment Total Score Description 02/06/2025 CAM 0 No delirium ind icated 01/28/2025 CAM 0 No delirium ind icated Insurance Providers Plan of Treatment Section Interventions Intervention Code Code System Display Name Proposed D ate Problems Problem # Description Date of onset Resolved Date Code CodeSystem Concern Status 1 ENTEROCOLITIS DUE TO CLOSTRIDIUM DIFFICILE, NOT SPECIFIED RECURRENT 02/01/2004/06/[address] completed 2 SEPSIS, UNSPECIFIED ORGANISM 02/01/2004/06/[address] completed 3 HYPO-OSMOLALITY AND HYPONATREMIA 10/09/[address] active 4 METABOLIC ENCEPHALOPATHY 10/09/1901/04/[address] completed 5 OTITIS MEDIA, UNSPECIFIED, UNSPECIFIED EAR 10/09/[address] active 6 HERPESVIRAL VESICULAR DERMATITIS 11/28/[address] active 7 COUGH, UNSPECIFIED 11/02/[address] active 8 ACUTE BRONCHITIS, UNSPECIFIED 08/11/19 24 10/05/[address] completed 9 RESPIRATORY SYNCYTIAL VIRUS PNEUMONIA 07/20/19 24 10/05/[address] completed 10 SHORTNESS OF BREATH 04/28/[address] active 11 COVID-19 03/25/20 23 08/22/[address] completed 12 ABRASION OF NOSE, SUBSEQUENT ENCOUNTER 11/25/19 23 01/04/[address] completed 13 CANDIDIASIS, UNSPECIFIED 10/08/19 23 10/28/[address] completed 14 COUGH, UNSPECIFIED 08/25/19 23 10/04/[address] completed 15 WHEEZING 08/25/19 23 10/04/[address] completed 16 ENCOUNTER FOR SURGICAL AFTERCARE FOLLOWING SURGERY ON THE TEETH OR ORAL CAVITY 08/19/19 23 07/19/[address] completed 17 CANDIDIASIS OF SKIN AND NAIL 05/21/20 22 07/07/[address] completed 18 ERYTHEMA INTERTRIGO 05/10/20 22 01/04/[address] completed 19 HYPO-OSMOLALITY AND HYPONATREMIA 05/09/20 22 06/06/[address] completed 20 METABOLIC ENCEPHALOPATHY 05/09/20 07/07/[address] completed 21 PNEUMONIA, UNSPECIFIED ORGANISM 04/29/20 22 05/06/[address] completed 22 ABSCESS OF LUNG WITH PNEUMONIA 04/28/20 22 07/07/[address] completed 23 ACUTE COUGH 04/28/20 22 07/07/[address] completed 24 INFLUENZA DUE TO OTHER IDENTIFIED INFLUENZA VIRUS WITH OTHER RESPIRATORY MANIFESTATIONS 04/28/20 22 05/06/[address] completed 25 OTHER VIRAL INFECTIONS OF UNSPECIFIED SITE 04/28/20 22 04/28/[address] completed 26 CANDIDIASIS OF SKIN AND NAIL 03/04/20 22 04/20/[address] completed 27 WHEEZING 10/31/19 22 04/06/[address] completed 28 DISRUPTION OF WOUND, UNSPECIFIED, INITIAL ENCOUNTER 08/20/19 22 10/04/[address] completed 29 DRY EYE SYNDROME OF BILATERAL LACRIMAL GLANDS 07/02/[address] active 30 ALTERED MENTAL STATUS, UNSPECIFIED 06/25/19 22 04/06/[address] completed 31 ANEMIA IN OTHER CHRONIC DISEASES CLASSIFIED ELSEWHERE 06/25/[address] active 32 ANXIETY DISORDER, UNSPECIFIED 06/25/[address] active 33 CEREBRAL PALSY, UNSPECIFIED 06/25/[address] active 34 COGNITIVE COMMUNICATION DEFICIT 06/25/19 22 04/06/[address] completed 35 CONSTIPATION, UNSPECIFIED 06/25/[address] active 36 DYSPHAGIA, UNSPECIFIED 06/25/[address] active 37 ENCOUNTER FOR IMMUNIZATION 06/25/19 22 04/28/[address] completed 38 EPILEPSY, UNSPECIFIED, NOT INTRACTABLE, WITHOUT STATUS EPILEPTICUS 06/25/[address] active 39 FUNCTIONAL QUADRIPLEGIA 06/25/[address] active 40 GASTROSTOMY STATUS 06/25/[address] active 41 HYPO-OSMOLALITY AND HYPONATREMIA 06/25/19 22 04/06/[address] completed 42 HYPOPITUITARISM 06/25/[address] active 43 HYPOTENSION, UNSPECIFIED 06/25/[address] active 44 HYPOTHYROIDISM, UNSPECIFIED 06/25/[address] active 45 MIXED RECEPTIVE-EXPRESSI VE LANGUAGE DISORDER 06/25/[address] active 46 MUSCLE WEAKNESS (GENERALIZED) 06/25/19 22 10/04/[address] completed 47 NEUTROPENIA, UNSPECIFIED 06/25/19 22 10/04/[address] completed 48 OTHER SPECIFIED COUGH 06/25/19 22 04/20/[address] completed 49 PAIN, UNSPECIFIED 06/25/[address] active 50 PRESENCE OF NEUROSTIMULATOR 06/25/[address] active 51 QUADRIPLEGIA, UNSPECIFIED 06/25/19 22 04/06/[address] completed 52 UNSPECIFIED PERFORATION OF TYMPANIC MEMBRANE, UNSPECIFIED EAR 06/25/19 22 04/06/[address] completed 53 ANEMIA IN OTHER CHRONIC DISEASES CLASSIFIED ELSEWHERE 05/06/[address] active 54 FUNCTIONAL QUADRIPLEGIA 05/06/[address] active 55 QUADRIPLEGIA, UNSPECIFIED 05/06/[address] active 56 ANXIETY DISORDER, UNSPECIFIED 02/07/[address] active 57 PERSONAL HISTORY OF TRAUMATIC BRAIN INJURY 02/07/[address] active 58 EXPRESSIVE LANGUAGE DISORDER 02/06/[address] active 59 MIXED RECEPTIVE-EXPRESSI VE LANGUAGE DISORDER 02/06/[address] active 60 COUGH 11/26/[address] active 61 DYSPHAGIA, UNSPECIFIED 11/13/[address] active 62 ALTERED MENTAL STATUS, UNSPECIFIED 11/12/[address] active 63 CEREBRAL PALSY, UNSPECIFIED 11/12/[address] active 64 COGNITIVE COMMUNICATION DEFICIT 11/12/[address] active 65 EPILEPSY, UNSPECIFIED, NOT INTRACTABLE, WITHOUT STATUS EPILEPTICUS 11/12/[address] active 66 GASTROSTOMY STATUS 11/12/[address] active 67 HYPO-OSMOLALITY AND HYPONATREMIA 11/12/[address] active 68 HYPOPITUITARISM 11/12/[address] active 69 HYPOTENSION, UNSPECIFIED 11/12/[address] active 70 HYPOTHYROIDISM, UNSPECIFIED 11/12/[address] active 71 MUSCLE WEAKNESS (GENERALIZED) 11/12/[address] active 72 NEUTROPENIA, UNSPECIFIED 11/12/[address] active 73 PRESENCE OF NEUROSTIMULATOR 11/12/[address] active 74 UNSPECIFIED PERFORATION OF TYMPANIC MEMBRANE, UNSPECIFIED EAR 11/12/[address] active 75 CONSTIPATION, UNSPECIFIED 11/02/[address] active 76 ENCOUNTER FOR IMMUNIZATION 11/02/[address] active 77 GASTRO-ESOPHAGEAL REFLUX DISEASE WITHOUT ESOPHAGITIS 11/02/1904/28/[address] completed 78 PAIN, UNSPECIFIED 11/02/[address] active Reason for Referral No Reasons for Referral Entered Social History Social History Observation Description Start Date End Date Code Code System Current Smoking Status Tobacco smoking consumption unknown 928266636 SNOMED CT Sex Assigned At Female 1995 00170-6 [facility] Gender Identity Sexual Orientation Vital Signs Code Code System Vitals Name Values and Units Timing Information 30719-8 [facility] Pain Level Value=5.0 04/24/2025 8310-5 [facility] Body Temperature Cgqwl=686.2 Units= F 04/24/2025 9279-1 [facility] Respiratory Rate Value=26.0 Units=/m in 04/24/2025 8462-4 [facility] Blood Pressure-Diastolic Value=87 Un its=mmHg 04/24/2025 8480-6 [facility] Blood Pressure-Systolic Bpawh=879 Un its=mmHg 04/24/2025 8867-4 [facility] Heart rate Uunyj=536.0 Units=/min 04/24/2025 22853-8 [facility] O2 % BldC Oximetry Value=99.0 Units= % 04/15/2025 44087-8 [facility] Weight Muzut=356.0 Units=Lbs 01/2025 8302-2 [facility] Height Value=65.0 Units=Inches 06/23/2022
--- OUTSIDE RECORDS SUMMARY | 2025-04-24 18:11 | XMS_ITS | Clinical Summary ---
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 Take Three and one half tablets BID 240 Tablet 6 04/07/2020 Active levETIRAcetam (KEPPRA) 750 mg Tablet 2 Tablets (1,500 mg) by PEG Tube route 2 times daily. 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 10/16/2019 Active FENOFIBRATE ORAL Take by mouth. [...] Encounters Date Type Department Care Team Description 03/05/2025 External Device Data [facility] ABSTRACTION Provider, Abstract [...] on file Legal Sex Female 4:36 PM SHEARER OPERATOR Gender Identity Not on file Sexual Orientation Not on file Last Filed Vital Signs Vital Sign Reading Time Taken Comments Blood Pressure 97/55 08/04/2022 10:55 AM SHEARER OPERATOR Pulse 82 07/15/2020 2:29 PM SHEARER OPERATOR Temperature 36.9 C (98.4 F) 08/08/2024 3:01 PM SHEARER OPERATOR Respiratory Rate 18 08/08/2024 3:01 PM SHEARER OPERATOR Oxygen Saturation - - Inhaled Oxygen Concentration - - Weight 73.5 kg (162 lb) 08/08/2024 3:01 PM SHEARER OPERATOR Height 165.1 cm (5' 5 ) 08/08/2024 3:01 PM SHEARER OPERATOR Body Mass Index 26.96 08/08/2024 3:01 PM SHEARER OPERATOR Plan of Treatment Health Maintenance Due Date Last Done Comments DTAP/TDAP/TD VACCINES (6 - Tdap) 2006 07/08/1999, 07/24/1996, 1995, Additional history exists HPV/Cotest (21-29) 2016 HPV VACCINES (1 - 3-dose SCD M series) 2022 INFLUENZA VACCINE (#1) 2025 COVID-19 Vaccine (2024-2 6 season) 2025 06/14/2022, 01/23/2021, 12/19/2020 CERVICAL CANCER SCREENING 2025 HPV/Cotest (30-65) 2025 PAP SMEAR 2025 HEPATITIS B VACCINES Completed 1995, 1995, 1995, Additional history exists Medical Devices Implanted Type Area Contract Coordinator Device Identifier Shelf Expiration Date Model / Serial / Lot Generator Vns Demipulse 103 - [id number] Implanted:Qty : 1 on 03/04/2020 by Ania Carrasco MD Neuro Stimulator Left: [facility] 12/11/2020 103 / [id number] / Neuro Neuro Description:generatro VNS Explanted Type Area Contract Coordinator Device Identifier Shelf Expiration Date Model / Serial / Lot Generator Vns Aspire 105 - [id number] Implanted:Ania Ramirez MD (Quantity not on file) Explanted:Qty : 1 on 03/04/2020 by Ania Carrasco MD Neuro Stimulator Left: Chest [facility] 105 / [id number] / Insurance [place]ID [place] DUAL COMPLETE PPO [facility] [id number] Care Teams Artificial Foliage Arranger Relationship Specialty Start Date End Date Florence Leger APN [address] [place] [address] PCP - General Nurse Practitioner Family 10/16/19
--- OUTSIDE RECORDS SUMMARY | 2025-04-24 18:11 | XMS_ITS | Data Portability ---
Author Organization [facility] Address [address] [address] Assessment No assessment recorded. Plan of Treatment Reminders Order Date Submit Date Provider Last Modified By Organization Details Last Modified Time Details Appointments None record ed. Lab None record ed. Referral None record ed. Procedures None record ed. Surgeries None record ed. Imaging None record ed. Medication Orders None record ed. Patient TargetsNo targets recorded. Patient Instructions Encounter Date Encounter Id Patient Instructions Last Modified By Organization Details Last Modified Time 01/21/2025 [id number] No issues per staff. Vitals stable. [email or web address] Not available 01/21/2025 16:33:47 02/06/2025 [id number] records reviewed ; admitted with c.diff diarrhea and hypotension; better now blood culture suspected contaminate, but treated with 10 days of linezolid [email or web address] Not available 02/07/2025 13:05:44 03/13/2025 [id number] Vitals stable, n o complaints per staff. [email or web address] Not available 03/13/2025 15:00:53 04/10/2025 [id number] Patient with cerebral palsy and gastrostomy. She will need a new tilt wheelchair as her current chair is old and beyond repair. She will need this for 99 months. Otherwise doing well. [email or web address] Not available 04/10/2025 13:58:05 Reason for Referral None Reported. Problems Name Problem SNOMED Code Status Onset Date Resolution Date Notes Provider Name and Address Organization Details Recorded Time Roni tay 26787412 Active 2018 PANHYPO PIT[facility]A RISM; 019 3:52PM by Fabiola Amador LPN, Office Visit; Promote d; acuity set as *; Not Available [employer] 3 03:08:29 Cerebral palsy 815433068 Active 2024 BRIDGETT cotto, [facility] 5 15:37:25 Epilepsy 20311792 [facility] 15:37:59 Hypothyroidi sm 04454017 Active 2024 [facility] 15:38:06 Gastrostomy present 424774599 Active 2024 [facility] 15:38:25 Chronic pain 72594180 Active 2024 [facility] 5 16:35:42 Problem Notes None recorded. Medical Equipment None Reported. Medications Name Sig Start Date Stop Date Status Note LastModified by Organization Details LastModified Time Hydrocort one 10 mg tablet twice daily active 2, 5mg tabs am 1.5, 5mg tab pm; 0; Recorded 06/08/19 19 4:14PM by Fabiola Amador LPN, Office Visit; Not Available Not Available Not Available Augmentin 875 mg-125 mg tablet two times daily 06/20 completed per tube; Recorded 06/08/19 19 4:32PM by Carrie Maddox PA-C, Office Visit; Refill Quantity : 0; Not Available Not Available Not Available phenobarb ital 20 mg/5 mL (4 mg/mL) oral elixir twice daily active 0; Recorded 06/08/19 19 4:10PM by Fabiola Amador LPN, Office Visit; Not Available Not Available Not Available hydrocodo ne 10 mg-acetam inophen 325 mg tablet Take 1 tablet twice a day by oral route for 30 days. 2024 active Not Available Not Available Not Avai lable triamcino lone acetonide 0.1 % topical cream as needed active 0; Recorded 06/08/19 19 4:12PM by Fabiola Amador LPN, Office Visit; Not Available Not Available Not Available phenobarb ital 30 mg tablet Take 2 tablets twice a day by oral route for 30 days. 2024 active Not Available Not Available Not Avai lable lamotrigi ne 100 mg tablet twice daily active 0; Recorded 06/08/19 4:12PM by Fabiola Amador LPN, Office Visit; Not Available Not Available Not Available clonazepa m 1 mg disintegr ating tablet three times daily active 0; Recorded 06/08/19 3:59PM by Fabiola Amador LPN, Office Visit; Not Available Not Available Not Available Keppra 100 mg/mL oral solution twice daily active 0; Recorded 06/08/19 4:12PM by Fabiola Amador LPN, Office Visit; Not Available Not Available Not Available lorazepam twice daily active 0; Recorded 06/08/19 4:10PM by Fabiola Amador LPN, Office Visit; Not Available Not Available Not Available cetirizin e daily active 0; Recorded 06/08/19 4:13PM by Fabiola Amador LPN, Office Visit; Not Available Not Available Not Available [facility] Levothyro xine Sodium daily active 0; Recorded 06/08/19 4:11PM by Fabiola Amador LPN, Office Visit; Not Available Not Available Not Available Miralax daily active 0; Recorded 06/08/19 4:09PM by Fabiola Amador LPN, Office Visit; Not Available Not Available Not Available Ciprodex twice daily active 0; Recorded 06/08/19 4:00PM by Fabiola Amador LPN, Office Visit; Not Available Not Available Not Available Vitals Date Recorded Body weight Heart rate Respiratory rate Body temperature Oxygen saturation Oxygen saturation in Arterial blood by Pulse oximetry Systolic And Diastolic Provider Name and Address Organization Details Last Updated DateTime 5 56026.4 5 g 81 /min 20 /min 97.2 [degF] 94 % 94 % 132/83 mm[Hg] BRIDGETT LANDRUM [facility] 5 16:32:08 Date Recorded Body weight Heart rate Respiratory rate Body temperature Oxygen saturation Oxygen saturation in Arterial blood by Pulse oximetry Systolic And Diastolic Provider Name and Address Organization Details Last Updated DateTime 5 70331.3 7 g 62 /min 15 /min 97.3 [degF] 93.98 % 93.98 % 118/64 mm[Hg] [facility] 5 14:44:29 Date Recorded Heart rate Respiratory rate Body temperature Oxygen saturation Oxygen saturation in Arterial blood by Pulse oximetry Systolic And Diastolic Provider Name and Address Organization Details Last Updated DateTime 5 93 /min 18 /min 98.1 [degF] 99 % 99 % 128/76 mm[Hg] BRIDGETT [facility] 5 13:54:02 Social History None recorded. Functional Status None recorded. Mental Status None recorded. Family History Nothing Reported Notes:Mother: Diabetes Dano tang Medical History No medical history recorded. Gynecological HistoryNo gynecological history recorded. Obstetrics History GPAL:G 0 P 0 0 0 0 Immunizations Vaccine Type Date Status Note Provider Nam e and Address Organization Details Recorded Time Hep B, unspecified formulation 6 completed Not Available [facility] 04/10/2025 07:13:49 DT (pediatric) 6 completed Not Available [facility] 04/10/2025 07:13:49 Hib (PRP-T) 6 completed Not Available [facility] 04/10/2025 07:13:49 polio, unspecified formulation 6 completed Not Available [facility] 04/10/2025 07:13:49 Hep B, unspecified formulation 6 completed Not Available [facility] 04/10/2025 07:13:49 DT (pediatric) 6 completed Not Available [facility] 04/10/2025 07:13:49 Hib (PRP-T) 6 completed [facility] 04/10/2025 07:13:49 polio, unspecified formulation 6 completed [facility] 04/10/2025 07:13:49 Hep B, unspecified formulation 6 completed Not Available [facility] 04/10/2025 07:13:49 DT (pediatric) 6 completed Not Available [facility] 04/10/2025 07:13:49 Hib (PRP-T) 6 completed Not Available [facility] 04/10/2025 07:13:49 polio, unspecified formulation 6 completed Not Available [facility] 04/10/2025 07:13:49 MMR 6 completed Not Available [facility] 04/10/2025 07:13:49 DT (pediatric) 7 completed Not Available [facility] 04/10/2025 07:13:49 polio, unspecified formulation 7 completed Not Available [facility] 04/10/2025 07:13:49 Hib (PRP-T) 7 completed Not Available [facility] 04/10/2025 07:13:49 MMR 0 completed Not Available [facility] 04/10/2025 07:13:49 DT (pediatric) 0 completed Not Available [facility] 04/10/2025 07:13:49 Influenza, split virus, quadrivalent, PF 9 completed Not Available [facility] 04/10/2025 07:13:49 Influenza, split virus, quadrivalent, PF 1 completed Not Available [facility] 04/10/2025 07:13:49 COVID-19, mRNA, LNP-S, PF, 100 mcg/0.5mL dose or 50 mcg/0.25mL dose 1 completed Not Available [facility] 04/10/2025 07:13:49 COVID-19, mRNA, LNP-S, PF, 100 mcg/0.5mL dose or 50 mcg/0.25mL dose 1 completed Not Available [facility] 04/10/2025 07:13:49 COVID-19, mRNA, LNP-S, bivalent, PF, 50 mcg/0.5 mL or 25mcg/0.25 mL dose 3 completed Not Available [facility] 04/10/2025 07:13:49 Past Encounters Encounter ID Performer Location Encounter Start Date Encounter Closed Date Diagnosis/Indication Diagnosis SNOMED-CT Code Diagnosis ICD10 Code Diagnosis IMO Codes Diagnosis Note [id number] DO LADONNA CrossC ([facility]) [address] [id number] 06/20/2024 08:22:55 06/21/2024 16:26:07 Cerebral palsy 202318176 G80.9 Epilepsy 03391295 G40.90 9 Hypothyroidism 11946095 E03.9 Gastrostomy present 3021 78672 Z93.1 [id number] Gilberto Laughlin DO [facility] ([facility]) [address] [place], [place] [address] 06/27/2024 08:20:53 07/03/2024 07:26:50 Impacted cerumen of bilateral ears 0717231860 542321 H61.23 [id number] Gilberto Laughlin DO [facility] ([facility]) [address] [place], [place] [address] 07/18/2024 08:24:01 07/19/2024 17:40:09 [id number] Gilberto Laughlin DO [facility] ([facility]) [address] [place], [place] [address] 07/23/2024 07:48:33 07/31/2024 08:51:28 Cerebral palsy 951525013 G80.9 Chronic pain 61288260 G8 9.29 Epilepsy 23845327 G40.90 9 [id number] Gilberto Laughlin DO [facility] ([facility]) [address] [place], [place] [phone] 08/08/2024 08:52:35 08/14/2024 22:51:55 Cerebral palsy 654249894 G80.9 Gastrostomy present 3021 25717 Z93.1 Hypothyroidism 85764542 E03.9 Chronic pain 08660356 G8 9.29 [id number] Gilberto Laughlin [facility] ([facility]) [address] [place], [place] [address] 09/05/2024 08:21:07 09/06/2024 07:54:19 Cerebral palsy 634115669 G80.9 Gastrostomy present 3021 40503 Z93.1 Hypothyroidism 90239278 E03.9 [id number] Gilberto Laughlin [facility] ([facility]) [address] [place], [place] [address] 10/10/2024 11:50:14 10/16/2024 16:41:52 Post-discharge follow-up 284621746 Z09 740034 Hyponatremia 31821307 E8 7.1 15422 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 45989106 Chronic anemia 708529434 D64.9 [id number] Gilberto Laughlin [facility]) [address] [place], [place] [phone] 10/17/2024 08:07:20 10/22/2024 08:25:44 Post-discharge follow-up 307541648 Z09 882283 Fever 218837247 R50.9 [id number] Thrombocyt openic disorder 259755413 D69.6 12224 Acute mastoiditis 228323 005 H70.009 [id number] Gilberto Laughlin [facility]) [address] [place], [place] [phone] 11/26/2024 12:55:42 11/28/2024 13:29:03 Cerebral palsy 521980801 G80.9 Hypothyroidism 49617901 E03.9 Chronic pain 53169929 G8 9.29 [id number] Gilberto Laughlin [facility]) [address] [place] [address] 12/17/2024 15:45:21 12/19/2024 11:14:57 Cerebral palsy 166873310 G80.9 Hypothyroidism 83954495 E03.9 Chronic pain 96616412 G8 9.29 [id number] Gilberto Laughlin [facility] ([facility]) [address] [place] [address] 01/21/2025 13:27:51 01/24/2025 10:05:38 Cerebral palsy 987501195 G80.9 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 Hypothyroidism 31169680 E03.9 Chronic pain 60520157 G8 9.29 [id number] Gilberto Laughlin [facility]) [address] [place], [place] [phone] 02/06/2025 12:35:03 02/11/2025 13:19:24 Post-discharge follow-up 631091192 Z09 703884 Clostridiu m difficile diarrhea 9439263473 102 A04.72 556965 [id number] Gilberto Laughlin DO [facility] ([facility]) [address] [place] [address] 03/13/2025 13:15:58 03/19/2025 09:33:10 Cerebral palsy 033029868 G80.9 Gastrostomy present 3021 41924 Z93.1 Panhypopituitarism 77975 006 E23.0 Hypothyroidism 39833242 E03.9 Chronic pain 52394417 G8 9.29 [id number] Gilberto Laughlin DO [facility] ([facility]) [address] [place] [address] 04/10/2025 07:13:41 04/12/2025 17:14:31 Cerebral palsy 391516243 G80.9 Gastrostomy present 3021 18808 Z93.1 Panhypopituitarism 78342 006 E23.0 Hypothyroidism 50197200 E03.9 Chronic pain 33681464 G8 9.29 Epilepsy 42012626 G40.90 9 Health Concerns Section Related Observation LastModified by Organization Detai ls LastModified Time None Recorded Concern Status LastModified by Organization Details LastModified Time None Recorded Advance Directives Directive None Recorded Payers Insurance Date Sequence Insurance Name Policy Number Policy Pappas Covered Member ID Pappas Member ID Guarantor Name 04/08/2025 1 [facility] (MEDICARE REPLACEMENT/A DVANTAGE - PPO) Jennyfer Isabel Wheat [id number] Fallon F Wheat 04/08/2025 2 [place] Jennyfer Maame Wheat [id number] Fallon F Wheat 04/08/2025 [facility] [place] [facility]HC-FQ[facility] (MEDICARE[place] Jennyfer E Wheat [id number] Fallon F Wheat 04/08/2025 [place] [facility] (INSTITUTIONA ) Jennyfer E Wheat [id number] Fallon F Wheat 06/28/2024 1 [place] [facility] Jennyfer E Wheat [id number] Fallon F Wheat Notes Date Note Type Note Provider Name and Address Organization Details Recorded Time 01/21/2025 text/html Generalized Anxi ety DisorderReported by PatientHPIFor onset/timing, patient reports___ years. For severity, patient reportsmoderate. For context, patient reportsdepression.ROS as noted in the HPI no issues per staff. Gilberto Laughlin DO [address] [place] [address], [phone], [facility] 01/21/2025 16:38:43 02/06/2025 text/html Generalized Anxi ety DisorderReported by PatientHPIFor onset/timing, patient reports___ years. For severity, patient reportsmoderate. For context, patient reportsdepression.ROS as noted in the HPI re-admit, c diff positive. Gilberto Laughlin DO [address] [place] [address], [phone], [facility] 02/07/2025 13:05:55 03/13/2025 text/html Generalized Anxi ety DisorderReported by PatientHPIFor onset/timing, patient reports___ years. For severity, patient reportsmoderate. For context, patient reportsdepression.ROS as noted in the HPI no complaints per staff. Gilberto Laughlin DO [address] [place] [address], [phone], [facility] 03/17/2025 17:34:23 04/10/2025 text/html Generalized Anxi ety DisorderReported by PatientHPIFor onset/timing, patient reports___ years. For severity, patient reportsmoderate. For context, patient reportsdepression.ROS as noted in the HPI no complaints per staff, needing new wheelchair. Gilberto Laughlin DO [address] [place] [address], [phone], [facility] 04/10/2025 15:07:36 OBGyn Episode No OBEpisode recorded.
--- OUTSIDE RECORDS SUMMARY | 2025-04-24 18:11 | XMS_ITS | Clinical Summary ---
Author Organization [facility] [place] Address [address] [place] [address] Phone Care Team Providers Care Pocket Flap Creasing Machine Operator Name Role Phone Florence Leger CARLOS Primary Care Provider [phone] Allergies Active Allergy Reactions Criticality Noted Date [...] tablet Take 125 mcg by mouth daily bridge tender. 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 Gender Identity Not on file Sexual Orientation Not on file Last Filed Vital Signs Vital Sign Reading Time Taken Comments Blood Pressure 94/71 07/15/2020 2:29 PM VETERINARY POULTRY INSPECTOR Pulse 82 07/15/2020 2:29 PM VETERINARY POULTRY INSPECTOR Temperature 36.3 C (97.3 F) 07/15/2020 2:29 PM VETERINARY POULTRY INSPECTOR Respiratory Rate 18 07/15/2020 2:29 PM VETERINARY POULTRY INSPECTOR Oxygen Saturation 96% 07/15/2020 2:29 PM VETERINARY POULTRY INSPECTOR Inhaled Oxygen Concentration - - Weight 62.6 [...] M series) 2022 INFLUENZA VACCINE (#1) 2025 CERVICAL CANCER SCREENING 2025 HPV/Cotest (30-65) 2025 PAP SMEAR 2025 HEPATITIS B VACCINES Completed 1995, 1995, 1995 Medical Devices Implanted Type Area Test Man Device Identifier Shelf Expiration Date Model / Serial / Lot Generator Vns Demipulse 103 - [id number] Implanted:Qty: 1 on 03/04/2020 by Ania Carrasco MD at [facility] Neuro Stimulator Left: Chest [employer] [place] 12/11/2020 103 / [id number] / Neuro Neuro Description:generatro VNS Explanted Type Area Test Man Device Identifier Shelf Expiration Date Model / Serial / Lot Generator Vns Aspire 105 - [id number] Implanted:Ania Bowman MD (Quantity not on file) Explanted:Qty: 1 on 03/04/2020 by Ania Carrasco MD at [facility] Neuro Stimulator Left: Chest [employer] [facility] 105 / [id number] / Insurance MEDICAID [place] DUAL COMPLETE MCR PPO D-SNP Advance Directives For more information, please contact: [phone] * Full Code (Latest Code Status on File) Date Activated Date Inactivated Comments 03/04/2020 11:45 AM 03/04/2020 7:28 PM * Full Code Date Activated Date Inactivated Comments 03/04/2020 11:22 AM 03/04/2020 11:44 AM Care Teams Pocket Flap Creasing Machine Operator Relationship Specialty Start Date End Date Florence Leger APN [address] [place] [phone] PCP - General Nurse Practitioner Family 10/16/19
--- OUTSIDE RECORDS SUMMARY | 2025-04-24 18:11 | XMS_ITS | Encounter Summary ---
Author Organization [facility] Address [address] [place] [address] Care Team Providers Care Drip Pumper Name Role Phone Florence Leger APN Primary Care Provider [phone] Encounter Details Date Type Department Care Team (Latest Contact Info) Description 09/27/2000 Outpatient Historical [facility] [address] [place] [address] Gilberto Blanchard MD [address] [place] [id number] Accommodative esotropia (Primary Dx) Social History Tobacco Use Types Packs/Day Years Used Date Smoking Tobacco: Never Assessed Comments Unknown Sex and Gender Information Value Date Recorded Sex Assigned at Not on file Legal Sex Female 3:47 AM GIFT WRAPPER Gender Identity Not on file Sexual Orientation Not on file documented as of this encounter Plan of Treatment Not on file documented as of this encounter Visit Diagnoses Diagnosis Accommodative esotropia- Primary Accommodative component in esotropia documented in this encounter Care Teams Drip Pumper Relationship Specialty Start Date End Date Florence Leger APN [address] [facility] [place] [phone] PCP - General Nurse Practitioner Family 10/16/19 documented as of this encounter
== END 2025-04-24 15:31 | disposition expired ==
PROVIDERS: Emergency Provider Emergency Medicine; PCP Family Medicine
DX: I46.9 Cardiac arrest, cause unspecified (principal); R09.02 Hypoxemia; G80.9 Cerebral palsy, unspecified; E23.0 Hypopituitarism; E03.9 Hypothyroidism, unspecified; G40.909 Epilepsy, unspecified, not intractable, without status epilepticus
CPT/HCPCS: 94799; 99285; J0330; J3490